=== PATIENT | female | born 1945 | race Caucasian/White ===

== ENCOUNTER 2020-07-28 09:27 | Outpatient (CLI) | payer OTHER, SELFPAY ==
--- NOTE | 2020-07-28 | DI.RAD_ITS ---
EXAM: XR CHEST 2V PA LATERAL CLINICAL HISTORY: COUGH, R05, FEVER, ? PNEUMONIA, SOB TECHNIQUE: 2D digital imaging was performed. COMPARISON: No exams were available for comparison FINDINGS: The heart is not enlarged. The lungs are clear and well expanded. No pleural effusion seen. Mediastin al contours appear intact. IMPRESSION: Normal chest. RADIATION DOSE DELIVERED: Total DLP
== END 2020-07-28 09:47 ==
PROVIDERS: PCP Physician Assistant; Visit Provider Nurse Practitioner Family
DX: R05 Cough (principal)
CPT/HCPCS: 71046

== ENCOUNTER 2020-07-28 17:31 | Outpatient (REF) | payer OTHER, SELFPAY ==
[2020-08-01 23:13] LABS: Patient Race White; SARS-CoV-2 RNA Undetected (Undetected); SARS-CoV-2 Specimen Source Nasal
== END 2020-07-28 17:51 ==
LOC: NCHCN 17:31
PROVIDERS: PCP Physician Assistant; Visit Provider Physician Assistant
DX: R05 Cough (principal)
CPT/HCPCS: U0003

== ENCOUNTER 2022-11-24 18:00 | Emergency (ER) | payer OTHER, SELFPAY ==
[2022-11-24 18:06] VITALS: BP 159/76; PULSE 74; RESP 24; TEMP 36.9; O2SAT 97
--- NOTE | 2022-11-24 18:30 | RT.EKG_ITS ---
APPROVED REPORT Exam: Resting ECG Reason for Exam: Cough Patient Location: E HR:65 bpm ECG Measurements Heart Rate 65 AXIS LA 176 P 42 QRSd 144 QRS -22 QT 455 T 40 QTc 472 Conclusion Sinus rhythm...normal P axis, V-rate 60- 99 Left bundle branch block...QRSd>120, broad/notched R
--- NOTE | 2022-11-24 18:38 | W.ED.GENAD ---
Discharge Plan Discharge Details Chief Complaint: RespSymp Primary Care Provider: Tolu Lazar ED Provider: Dung Toribio Home Meds and New Rx's Prescriptions: No Action calcium 500 mg Tablet 500 mg PO DAILY furosemide 20 mg Tablet 20 mg PO DAILY metoprolol succinate 25 mg Tablet Extended Release 24 Hr 25 mg PO DAILY Advair HFA 45-21 mcg/actuation Hfa Aerosol Inhaler 2 puff INHALATION BID Vitamin D3 100 mcg (4,000 unit) Capsule 4,000 mcg PO DAILY Medical Decision Making This is a 77-year-old female who presents from home. She states that she has had 2 months of cough, feels congested. States that her primary care physician trialed her on a course of antibiotics in September as well as a course of prednisone which seemed to help. She has aching rib pain from all of her coughing but denies anterior chest pain. She denies lower extremity pain or swelling. She is continue to take her medications. Patient arrives to the ER afebrile, alert and interactive, she is oxygenating normally. She does demonstrate a persistent cough with coarse breath sounds. Differential diagnosis would include CHF, bronchitis, pneumonia or atypical infection. Would consider PE. Patient IV access established, screening labs and EKG obtained. Patient slightly improved with DuoNeb updraft. Her labs are essentially reassuring. White count of 6, hematocrit 34.9, platelets 160. Sodium 135, potassium 4.3, chloride 101, bicarb 25, BUN 16, creatinine 0.8. Troponin is negative, BNP 303, D-dimer 531. Given the persistence of her cough, somewhat atypical presentation, history of being treated with steroids and antibiotics in September I have ordered a CT scan of the chest. The case will be signed out to the oncoming physician. Please see the follow-up note. HPI General Mode of arrival: ambulatory. Date/Time Provider Initiated Documentation: 11/24/22 18:01. Limitations to Documentation: no limitations. Information obtained by: patient. History of Present Illness 77 year old F presents to the emergency department with the chief complaint of Cough for 2 months, described as moderate, and is localized to the chest. Patient reports no radiation. Patient started experiencing this month(s) and it has been intermittent. No relieving factors improve symptom(s), No exacerbating factors reported . Patient notes cough; denies fever/chills. Patient did receive the following treatments prior to arrival, none Related Data Home Medications Medication Instructions Recorded Confirmed calcium 500 mg tablet 500 mg PO DAILY 11/24/22 11/24/22 cholecalciferol (vitamin D3) 100 4,000 mcg PO DAILY 11/24/22 11/24/22 mcg (4,000 unit) capsule fluticasone propionate 45 2 puff inhalation BID 11/24/22 11/24/22 mcg-salmeterol 21 mcg/actuation HFA inhaler (Advair HFA) furosemide 20 mg tablet 20 mg PO DAILY 11/24/22 11/24/22 metoprolol succinate 25 mg 25 mg PO DAILY 11/24/22 11/24/22 tablet,extended release 24 hr Allergies Allergy/AdvReac Type Severity Reaction Status Date / Time oxycodone AdvReac Intermediate Headache Unverified 11/24/22 18:13 General Stated Complaint: RespSymp CECI: 3 Review of Systems Narrative: No fever. Denies lower extremity swelling. States she does have a history of congestive heart failure for which she takes a diuretic. 7 systems reviewed and otherwise negative [facility] Social History Smoking/Tobacco Use Status: Never Smoking risk assessment performed?: Yes Alcohol Intake: never Drug use: Never Substance use type: does not use Do you feel safe at home: Yes Do you feel safe in your relationship?: No Exam Narrative Exam Narrative: GEN: awake, alert, oriented 3. Pleasant, well groomed, interactive. HEAD: Normocephalic, atraumatic EYES: PERRL, EOMI NECK: Full ROM, no KAY, no menigismus CHEST/RESP: Nontender, few scattered rhonchi/coarse rales bilaterally, no wheeze appreciated CARDIOVASCULAR: RRR, no murmur, rub sita. 2+ Rad pulse bilateral ABDOMEN: Soft, nontender, no mass. +Bowel sounds EXT: Full ROM, no edema, no rash Neuro: Grossly normal neurologic exam, conversant, interactive. Psych: Speech fluent, thoughts congruent, affect normal Course Vital Signs Vital signs: Vital Signs Temperature 36.9 C 11/24/22 18:06 Pulse 74 11/24/22 18:06 Respiratory Rate 24 11/24/22 18:06 Blood Pressure 159/76 H 11/24/22 18:06 Pulse Oximetry 97 11/24/22 18:06 Temperature 36.9 C 11/24/22 18:06 Temperature Source Oral 11/24/22 18:06 Pulse 74 11/24/22 18:06 Respiratory Rate 24 11/24/22 18:06 Respiratory Effort Normal, Non-Labored 11/24/22 18:20 Respiratory Depth Normal 11/24/22 18:20 Blood Pressure 159/76 H 11/24/22 18:06 Blood Pressure Position Sitting 11/24/22 18:06 Pulse Oximetry 97 11/24/22 18:06 Oxygen Delivery Method Room Air 11/24/22 18:06 Oxygen Flow Rate 0 11/24/22 18:06 Pain Level 10 11/24/22 18:06 Sign Out Sign Out Data: Sign Out Comment: 2 months cough, followup CT chest Last updated by Dung Toribio MD at 11/24/22 19:33
[2022-11-24] MEDS: Albuterol/Ipratropium 3 ML UPD VIAL UPD (18:48)
[2022-11-24 18:55] LABS: Abs Immature Grans 0.03 10^3/uL (0.0-0.06); Absolute Basophil Count 0.05 10^3/uL (0.0-0.2); Absolute Eosinophil Count 0.36 10^3/uL (0.0-0.7); Absolute Lymphocyte Count 1.43 10^3/uL (1.2-3.4); Absolute Monocyte Count 0.49 10^3/uL (0.1-0.8); Absolute Neutrophil Count 4.18 10^3/uL (1.2-6.7); Basophils % 0.8; Eosinophils % 5.5; HCT 34.9 % (36.0-46.0); Immature Grans % 0.5; Lymphocytes % 21.9; MCH 28.4 pg (27.0-33.0); MCHC 31.5 % (32.0-36.0); MCV 90 fL (80-95); MPV 11.3 fL (8.0-11.0); Monocytes % 7.5; Neutrophils % 63.8; Platelet Count 160 10^3/uL (130-400); RBC 3.87 10^6/uL (3.93-5.22); RDW-SD 42.4 fL; WBC 6.54 10^3/uL (4.4-10.8)
[2022-11-24 19:11] LABS: ALT 45 U/L (14-59); AST 57 U/L (15-37); Albumin 3.4 g/dL (3.4-5.0); Alkaline Phosphatase 110 U/L (46-116); Anion Gap 8.2 mmol/L (3-11); BUN 16 mg/dL (7-18); Bilirubin, Total 0.4 mg/dL (0.2-1.0); CO2 25.8 mmol/L (21.0-32.0); CREATININE 0.8 mg/dL (0.55-1.02); Calcium 8.7 mg/dL (8.5-10.1); Chloride 101 mmol/L (98-107); Estimated GFR 75.84 (mL/min/1.73m2); Glucose 103 mg/dL (74-106); NT-proBNP 303 pg/mL (<300); Potassium 4.3 mmol/L (3.5-5.1); Sodium 135 mmol/L (136-145); Total Protein 6.6 g/dL (6.4-8.2); Troponin I < 50 ng/L (<or=60)
--- NOTE | 2022-11-24 19:15 | DI.CT_ITS ---
Exam(s) CT CHEST PE CTA EXAM: CT CHEST PE CTA CLINICAL HISTORY: Persistent cough. TECHNIQUE: Imaging Protocol: Axial CT angiography was performed with multi-slice acquisition and mu lti-planar and/or 3D reconstructions. CONTRAST MATERIAL: Intravenous: Omnipaque 350 contrast volume:58 mL COMPARISON: CT ABD PELVIS WITH CONTRAST from 12/01/2010 CR XR CHEST 2V PA LATERAL from 07/28/2020 FINDINGS: Tracheobronchial tree: Mild bronchiectasis in the lung bases. Pulmonary parenchyma: There is scarring in the lung bases. No focal consolidating infiltrates are se en. No pulmonary nodules are present. Pulmonary Arteries: No evidence of filling defect to suggest pulmonary emboli. Mediastinum and Danielle: No dominant adenopathy or fluid collection. The esophagus is unremarkable. Visualized thyroid gland: Unremarkable. Pleura: No effusion or pneumothorax. Heart: Mild cardiomegaly. Mild coronary artery calcification is present. No pericardial effusion. Aorta: Thoracic aorta non-dilated. No evidence of dissection. Atherosclerosis is present. Upper abdomen: Unremarkable. Soft tissues: Unremarkable. Bones: Within normal limits for the patient's age. IMPRESSION: 1. No evidence of pulmonary embolism, thoracic aortic dissection or aneurysm. 2. Bilateral basilar scarring/atelectasis and bronchiectasis. RADIATION DOSE DELIVERED: Total DLP DATA REPOSITORY: All CT scans at this facility are submitted to the National Radiology Data Registry (NRDR) Dose Index Registry (DIR) with the [employer] (ACR). RADIATION OPTIMIZATION: All CT scans at this facility use at least one of these dose optimization te chniques: automated exposure control; mA and/or kV adjustment per patient size (includes targeted exa ms where dose is matched to clinical indication); or iterative reconstruction.
[2022-11-24 19:26] LABS: D-Dimer 531 ng/mlFEU (<500)
[2022-11-24] MEDS: Omnipaque 350 MG/ML 100 ML BTL IJ (19:50)
[2022-11-24] MEDS: Normal Saline - Diluent 50 ML VIAL IJ (19:51)
--- NOTE | 2022-11-24 20:12 | DI.VRAD_ITS ---
PROCEDURE INFORMATION: Exam: CTA Chest With Contrast Exam date and time: 11/24/2022 7:50 PM Age: 77 years old Clinical indication: Patient HX: Persistent cough; Per PT: Since August; Additional info: Cough since August TECHNIQUE: Imaging protocol: Computed tomographic angiography of the chest with contrast. 3D rendering (Not supervised by radiologist): MIP and/or 3D reconstructed images were created by the technologist. COMPARISON: CR XR CHEST 2V PA LATERAL 07/28/2020 1:52 PM FINDINGS: Pulmonary arteries: No pulmonary emboli. Aorta: No aortic aneurysm. No aortic dissection. Lungs: Mild bibasilar subsegmental atelectasis associated with mild bronchiectasis. No pneumonia. Pleural spaces: No pneumothorax. No pleural effusion. Heart: Mild cardiomegaly. Lymph nodes: No enlarged lymph nodes. Bones/joints: Chronic bony changes with no acute fracture. Soft tissues: No suspicious lesions. IMPRESSION: 1. Mild cardiomegaly. 2. Mild bibasilar subsegmental atelectasis associated with mild bronchiectasis. No pneumonia. Dictated and Authenticated by: Jeannie Estes MD. Ordering:MIRIAN Razo MD
--- NOTE | 2022-11-24 20:38 | ED.GENADUL_ITS ---
Discharge Plan Discharge Details Chief Complaint: RespSymp Primary Care Provider: Tolu Lazar ED Provider: Adolfo Canales Home Meds and New Rx's Prescriptions: No Action calcium 500 mg Tablet 500 mg PO DAILY furosemide 20 mg Tablet 20 mg PO DAILY metoprolol succinate 25 mg Tablet Extended Release 24 Hr 25 mg PO DAILY Advair HFA 45-21 mcg/actuation Hfa Aerosol Inhaler 2 puff INHALATION BID Vitamin D3 100 mcg (4,000 unit) Capsule 4,000 mcg PO DAILY HPI General Mode of arrival: ambulatory . Date/Time Provider Initiated Documentation: 11/24/22 18:01 . Limitations to Documentation: no limitations . Information obtained by: patient . History of Present Illness and is localized to the chest. No relieving factors improve symptom(s), No exacerbating factors reported . Patient notes cough; denies fever/chills. Patient did receive the following treatments prior to arrival, none Related Data Home Medications Medication Instructions Recorded Confirmed calcium 500 mg tablet 500 mg PO DAILY 11/24/22 11/24/22 cholecalciferol (vitamin D3) 100 4,000 mcg PO DAILY 11/24/22 11/24/22 mcg (4,000 unit) capsule fluticasone propionate 45 2 puff inhalation BID 11/24/22 11/24/22 mcg-salmeterol 21 mcg/actuation HFA inhaler (Advair HFA) furosemide 20 mg tablet 20 mg PO DAILY 11/24/22 11/24/22 metoprolol succinate 25 mg 25 mg PO DAILY 11/24/22 11/24/22 tablet,extended release 24 hr Allergies Allergy/AdvReac Type Severity Reaction Status Date / Time oxycodone AdvReac Intermediate Headache Unverified 11/24/22 18:13 General Stated Complaint: RespSymp CECI: 3 PFSH Social History Smoking/Tobacco Use Status: Never Smoking risk assessment performed?: Yes Alcohol Intake: never Drug use: Never Substance use type: does not use Do you feel safe at home: Yes Do you feel safe in your relationship?: No Course Vital Signs Vital signs: Vital Signs Temperature 36.9 C 11/24/22 18:06 Pulse 74 11/24/22 18:06 Respiratory Rate 24 11/24/22 18:06 Blood Pressure 159/76 H 11/24/22 18:06 Pulse Oximetry 97 11/24/22 18:06 Temperature 36.9 C 11/24/22 18:06 Temperature Source Oral 11/24/22 18:06 Pulse 74 11/24/22 18:06 Respiratory Rate 24 11/24/22 18:06 Respiratory Effort Normal, Non-Labored 11/24/22 18:20 Respiratory Depth Normal 11/24/22 18:20 Blood Pressure 159/76 H 11/24/22 18:06 Blood Pressure Position Sitting 11/24/22 18:06 Pulse Oximetry 97 11/24/22 18:06 Oxygen Delivery Method Room Air 11/24/22 18:06 Oxygen Flow Rate 0 11/24/22 18:06 Pain Level 10 11/24/22 18:06 Lab/Test Results Lab/Test Results: Laboratory Tests Range/Units 11/24/22 11/24/22 11/24/22 18:30 18:30 18:30 WBC (4.4-10.8) 10^3/uL 6.54 RBC (3.93-5.22) 10^6/uL 3.87 L Hgb (11.2-15.7) g/dL 11.0 L Hct (36.0-46.0) % 34.9 L MCV (80-95) fL 90 MCH (27.0-33.0) pg 28.4 MCHC (32.0-36.0) % 31.5 L RDW (11.7-14.6) % 13.0 Plt Count (130-400) 10^3/uL 160 MPV (8.0-11.0) fL 11.3 H Immature Gran % 0.5 Neutrophils % 63.8 Lymphocytes % 21.9 Monocytes % 7.5 Eosinophils % 5.5 Basophils % 0.8 Nucleated RBC % (0.0-0.3) % 0.0 Absolute Neutrophils (1.2-6.7) 10^3/uL 4.18 Absolute Lymphocytes (1.2-3.4) 10^3/uL 1.43 Absolute Monocytes (0.1-0.8) 10^3/uL 0.49 Absolute Eosinophils (0.0-0.7) 10^3/uL 0.36 Absolute Basophils (0.0-0.2) 10^3/uL 0.05 D-Dimer (<500) ng/mlFEU 531 H Sodium (136-145) mmol/L 135 L Potassium (3.5-5.1) mmol/L 4.3 Chloride (98-107) mmol/L 101 Carbon Dioxide (21.0-32.0) mmol/L 25.8 Anion Gap (3-11) mmol/L 8.2 BUN (7-18) mg/dL 16 Creatinine (0.55-1.02) mg/dL 0.8 Est GFR (CKD-EPI 2020) (mL/min/1.73m2) 75.84 Glucose (74-106) mg/dL 103 Calcium (8.5-10.1) mg/dL 8.7 Total Bilirubin (0.2-1.0) mg/dL 0.4 AST (15-37) U/L 57 H ALT (14-59) U/L 45 Alkaline Phosphatase (46-116) U/L 110 Troponin I (<or=60) ng/L < 50 NT-Pro-B Natriuret Pep (<300) pg/mL 303 H Total Protein (6.4-8.2) g/dL 6.6 Albumin (3.4-5.0) g/dL 3.4 Sign Out Sign Out Data: Sign Out Comment: 2 months cough, followup CT chest Last updated by Dung Toribio MD at 11/24/22 19:33
--- NOTE | 2022-11-24 20:39 | ED.PROG_ITS ---
Date of service: 11/24/22 Time of Service: 20:58 Medical Decision Making Patient was signed out to me by my colleague Dr. Dung Toribio. Please refer to his HPI, physical exam, assessment and plan. At time of signout we are pending CT results. CT scan has returned, and shows mild cardiomegaly, no evidence of CHF, there is mild bibasilar subsegmental atelectasis associated with mild bronchiectasis. No pneumonia. This appears to be clinically consistent with the patient's symptomatology of persistent cough, even in spite of short steroid and antibiotic treatment. Patient has no evidence of hypoxemia or respiratory distress. She is otherwise notably stable. The remainder of her work-up is otherwise stable. No evidence of blood clots. We will transition to an extended/prolonged course of steroids and antibiotics. We will do 14 days of Levaquin, and a prolonged 3-week taper dose of steroids. She will continue the Advair inhaler that was already prescribed to her. Cardiac work-up was negative, troponin negative, proBNP shows no signs of significant heart strain or CHF. She has no evidence of CHF clinically. We will place a pulmonology consult for outpatient sputum collection and potential biopsy if indicated. Discussed red flags for which to return. We will give the first dose of Levaquin and prednisone here. I have extensively reviewed the treatment plan and discharge instructions with the patient. I have addressed all patient concerns at this time. The patient was made aware of what symptoms to monitor for that would warrant a return to the emergency department. Discussed the plan with the patient, they demonstrate verbal understanding and agreement with our assessment and plan at this time. The documentation in this chart was dictated using [employer] dictation software. Please excuse any dictation errors. FINDINGS: Pulmonary arteries: No pulmonary emboli. Aorta: No aortic aneurysm. No aortic dissection. Lungs: Mild bibasilar subsegmental atelectasis associated with mild bronchiectasis. No pneumonia. Pleural spaces: No pneumothorax. No pleural effusion. Heart: Mild cardiomegaly. Lymph nodes: No enlarged lymph nodes. Bones/joints: Chronic bony changes with no acute fracture. Soft tissues: No suspicious lesions. IMPRESSION: 1. Mild cardiomegaly. 2. Mild bibasilar subsegmental atelectasis associated with mild bronchiectasis. No pneumonia. Thank you for allowing us to participate in the care of your patient. Dictated and Authenticated by: Jeannie Estes MD 11/24/2022 8:11 PM Eastern Time ([place] & [place]) Sign Out Sign Out Data: Sign Out Comment: 2 months cough, followup CT chest Last updated by Dung Toribio MD at 11/24/22 19:33 Discharge Plan Disposition Patient Disposition: Home Condition: Good Discharge Details Clinical Impression: Bronchiectasis Primary Care Provider: Tolu Lazar ED Provider: Adolfo Canales Home Meds and New Rx's Prescriptions: New prednisone 20 mg tablet 20 mg PO DAILY Qty: 42 0RF Rx Instructions: Take 3 tablets daily for 7 days, followed by 2 tablets daily for 7 days, followed by 1 tablet daily for 7 days. levofloxacin 750 mg tablet 750 mg PO DAILY Qty: 14 0RF Continued calcium 500 mg Tablet 500 mg PO DAILY furosemide 20 mg Tablet 20 mg PO DAILY metoprolol succinate 25 mg Tablet Extended Release 24 Hr 25 mg PO DAILY Advair HFA 45-21 mcg/actuation Hfa Aerosol Inhaler 2 puff INHALATION BID cholecalciferol (vitamin D3) 100 mcg (4,000 unit) Capsule 4,000 mcg PO DAILY Discharge Instructions Instructions: Bronchiectasis (ED) Additional Instructions: At this time your symptoms are consistent with bronchiectasis which is similar to a chronic high mucus producing infection/irritation in the pathways of breathing/bronchi of your lungs. This will require a prolonged antibiotic course for 2 weeks, as well as a prolonged steroid course. Please take these as directed for the levofloxacin antibiotic and the prednisone steroid. Please continue to take your inhaler as directed. We have placed a pulmonology consult. Please follow-up closely with the print support specialist when they have called you to schedule an appointment. If you notice any worsening of your symptoms, or any new symptoms such as vomiting, diarrhea, fever, chills, shortness of breath, chest pain, numbness, weakness, or fainting , please return immediately to the emergency department for reevaluation. Please follow up with your primary care provider as soon as possible for reassessment and reevaluation. As always, it was a pleasure participating in your medical care today. Referrals: Tolu Lazar [Primary Care Provider] - Natalya Peralta MD [ [facility] STAFF PHYSICIAN] -
[2022-11-24] MEDS: predniSONE 20 MG TAB 60 MG PO (20:52)
[2022-11-24] MEDS: levoFLOXacin 500 MG, levoFLOXacin 250 MG 750 MG PO (20:53)
--- NOTE | 2022-11-24 21:06 | NUR.NOTE ---
Referral faxed to [facility] Pulmonology to f/u in 1-2 months for Bronchiectasis.Nursing Note:
== END 2022-11-24 21:03 | disposition home or self-care (01) ==
PROVIDERS: Emergency Medicine; Emergency Provider Student in an Organized Health Care Education/Training Program; PCP Physician Assistant
DX: J47.9 Bronchiectasis, uncomplicated (principal); Z79.51 Long term (current) use of inhaled steroids
CPT/HCPCS: 36415; 71275; 80053; 93005; 99285; 83880; 84484; 85025; 85379; 93010; 99284; J3490; J7512; J7620

== ENCOUNTER 2022-12-25 18:30 | Emergency (ER) | payer OTHER, SELFPAY ==
[2022-12-25 18:36] VITALS: PULSE 78; RESP 18; TEMP 37.3; O2SAT 96
[2022-12-25 18:40] VITALS: BP 136/65
[2022-12-25 19:26] VITALS: RESP 18
--- NOTE | 2022-12-25 19:30 | DI.RAD_ITS ---
Exam(s) XR THUMB RT EXAM: XR THUMB RT CLINICAL HISTORY: pain and swelling. TECHNIQUE: 2D digital imaging was performed. Three views. COMPARISON: No exams were available for comparison FINDINGS: BONES: No acute fracture is present. No bony destructive lesion is seen. JOINTS: No dislocation present. Degenerative changes 1st carpal metacarpal joint. SOFT TISSUE: Swelling around distal thumb. No foreign body or gas collection.. IMPRESSION: Soft tissue swelling. DATA REPOSITORY: RADIATION DOSE DELIVERED:
--- NOTE | 2022-12-25 19:40 | ED.GENADUL_ITS ---
Discharge Plan Disposition Patient Disposition: Home Condition: Stable Discharge Details Clinical Impression: Swelling of right thumb Primary Care Provider: Tolu Lazar ED Provider: Gaurav Rosario Home Meds and New Rx's Prescriptions: New prednisone 20 mg tablet 60 mg PO DAILY 4 Days Qty: 12 0RF amoxicillin-pot clavulanate 875-125 mg tablet 1 tab PO BID Qty: 14 0RF Continued calcium 500 mg Tablet 500 mg PO DAILY furosemide 20 mg Tablet 20 mg PO DAILY metoprolol succinate 25 mg Tablet Extended Release 24 Hr 25 mg PO DAILY Advair HFA 45-21 mcg/actuation Hfa Aerosol Inhaler 2 puff INHALATION BID cholecalciferol (vitamin D3) 100 mcg (4,000 unit) Capsule 4,000 mcg PO DAILY prednisone 20 mg tablet 20 mg PO DAILY Qty: 42 0RF Patient Comments: not taking Rx Instructions: Take 3 tablets daily for 7 days, followed by 2 tablets daily for 7 days, followed by 1 tablet daily for 7 days. levofloxacin 750 mg tablet 750 mg PO DAILY Qty: 14 0RF Patient Comments: not taking Discharge Instructions Additional Instructions: Your are being treated for askin infection with augmentin and also a steroid for possible arthritis if not improving by next week follow up with your primary care provider if you feel more ill, have severe worsening pain return to the emergency department Medical Decision Making 77 yo female comes in with cc of nontraumatic right thumb swelling for several days and earlier today had a temp to 100.2 that resolved. Denies chills, states she feels well otherwise. She does have a swollen right thumb compared to the left and is warm to touch. She has intact sensation, full rom, no tenderness over the palmar surface of the thumb. No breaks in the skin or lacs. No other rashes elsewhere, and the thumb is not red just warm to touch. Suspect possible tendonitis vs cellulitis, will obtain xray to evaluate for possible pathology such as pathological fracture though has no severe pain so doubt this. She appears well so doubt sepsis at this time and no findings to suggest nec fasc or flexor tenosynovitis at this time pt stable, xray without acute findings, does have significant degenerative changes of trapezial metacarpal joint. Could be arthritis, will continues with augmentin and prednisone, advised to f/u with pcp, return precautions given Differential Diagnosis Differential Diagnosis: cellulitis, tendonitis Imaging Data Radiologic Study: Attestation: I personally reviewed and interpreted this imaging study as follows: Imaging: X-Ray Radiologist's impression: PROCEDURE INFORMATION: Exam: XR Right Finger(s) Exam date and time: 12/25/2022 7:52 PM Age: 77 years old Clinical indication: Swelling; Fingers; Right; Additional info: Thumb swelling TECHNIQUE: Imaging protocol: Radiologic exam of the right fingers. Views: Minimum 2 views. COMPARISON: No relevant prior studies available. FINDINGS: Bones/joints: There are severe degenerative changes of the trapezial metacarpal joint with moderate subluxation of the base of the 1st metacarpal. Osseous alignment is otherwise normal. No acute fracture seen. Soft tissues: Normal. IMPRESSION: No acute fracture. Significant degenerative changes of the trapezial metacarpal joint HPI General Mode of arrival: ambulatory . Date/Time Provider Initiated Documentation: 12/25/22 18:43 . Limitations to Documentation: no limitations . Information obtained by: patient . History of Present Illness 77 year old F presents to the emergency department with the chief complaint of right thumb swelling, described as moderate, Patient started experiencing this day(s) (3) and it has been constant. No relieving factors improve symptom(s), No exacerbating factors reported . Patient did receive the following treatments prior to arrival, none Related Data Home Medications Medication Instructions Recorded Confirmed calcium 500 mg tablet 500 mg PO DAILY 11/24/22 12/25/22 cholecalciferol (vitamin D3) 100 4,000 mcg PO DAILY 11/24/22 12/25/22 mcg (4,000 unit) capsule fluticasone propionate 45 2 puff inhalation BID 11/24/22 12/25/22 mcg-salmeterol 21 mcg/actuation HFA inhaler (Advair HFA) furosemide 20 mg tablet 20 mg PO DAILY 11/24/22 12/25/22 levofloxacin 750 mg tablet 750 mg PO DAILY #14 tabs 11/24/22 metoprolol succinate 25 mg 25 mg PO DAILY 11/24/22 12/25/22 tablet,extended release 24 hr prednisone 20 mg tablet 20 mg PO DAILY #42 tabs 11/24/22 amoxicillin 875 mg-potassium 1 tab PO BID #14 tabs 12/25/22 clavulanate 125 mg tablet prednisone 20 mg tablet 60 mg PO DAILY 4 days #12 tabs 03/29/23 Previous Rx's Medication Instructions Recorded levofloxacin 750 mg tablet 750 mg PO DAILY #14 tabs 11/24/22 prednisone 20 mg tablet 20 mg PO DAILY #42 tabs 11/24/22 amoxicillin 875 mg-potassium 1 tab PO BID #14 tabs 12/25/22 clavulanate 125 mg tablet prednisone 20 mg tablet 60 mg PO DAILY 4 days #12 tabs 12/25/22 Allergies Allergy/AdvReac Type Severity Reaction Status Date / Time oxycodone AdvReac Intermediate Headache Unverified 12/25/22 18:39 General Stated Complaint: Vascular CECI: 3 Review of Systems All systems reviewed & are unremarkable except as noted in HPI and below Constitutional Constitutional: Denies chills and Denies weakness Cardiovascular Cardiovascular: Denies chest pain and Denies dyspnea Respiratory Respiratory: Denies cough and Denies dyspnea Gastrointestinal Gastrointestinal: Denies abdominal pain, Denies nausea and Denies vomiting Genitourinary Genitourinary: Denies dysuria Neurologic Neurologic: Denies weakness PFSH All Active Problems (Updated 12/25/22 @ 20:34 by Gaurav Rosario MD) Swelling of right thumb (Acute) Social History Smoking/Tobacco Use Status: Never Smoking risk assessment performed?: Yes Alcohol Intake: never Drug use: Never Substance use type: does not use Do you feel safe at home: Yes Do you feel safe in your relationship?: No Exam Const General: no acute distress Orientation: alert HENMT Head: normal to inspection Ears: external ears normal General nose exam: external nose normal Mouth: moist mucous membranes Eyes General: appearance normal, both eyes and all related structures Neck Neck: normal visual inspection Resp Effort & Inspection: normal respiratory effort and able to speak in complete sentences Cardio Rate: regular rate Skin General skin exam: no rashes or lesions noted Neuro General: patient alert and patient oriented x3 Extrem General: full ROM and capillary refill normal Psych Mental Status: mental status grossly normal Course Vital Signs Vital signs: Vital Signs Temperature 37.3 C 12/25/22 18:36 Pulse 78 12/25/22 18:36 Respiratory Rate 18 12/25/22 18:36 Pulse Oximetry 96 12/25/22 18:36 Temperature 37.3 C 12/25/22 18:36 Temperature Source Oral 12/25/22 18:36 Pulse 78 12/25/22 18:36 Respiratory Rate 18 12/25/22 19:26 Respiratory Effort Normal 12/25/22 19:26 Respiratory Depth Normal 12/25/22 19:26 Respiratory Pattern Normal 12/25/22 19:26 Blood Pressure 136/65 12/25/22 18:40 Pulse Oximetry 96 12/25/22 18:36
[2022-12-25] MEDS: predniSONE 20 MG TAB 60 MG PO (20:02)
[2022-12-25] MEDS: Amoxicillin 875/Clav. 125 TAB PO (20:02)
--- NOTE | 2022-12-25 20:06 | DI.VRAD_ITS ---
PROCEDURE INFORMATION: Exam: XR Right Finger(s) Exam date and time: 12/25/2022 7:52 PM Age: 77 years old Clinical indication: Swelling; Fingers; Right; Additional info: Thumb swelling TECHNIQUE: Imaging protocol: Radiologic exam of the right fingers. Views: Minimum 2 views. COMPARISON: No relevant prior studies available. FINDINGS: Bones/joints: There are severe degenerative changes of the trapezial metacarpal joint with moderate subluxation of the base of the 1st metacarpal. Osseous alignment is otherwise normal. No acute fracture seen. Soft tissues: Normal. IMPRESSION: No acute fracture. Significant degenerative changes of the trapezial metacarpal joint Dictated and Authenticated by: Philip Maya MD. Ordering:DAVID Nolasco MD
[2022-12-25 20:47] VITALS: BP 137/64; PULSE 74; RESP 17; O2SAT 97
--- NOTE | 2022-12-26 11:35 | NUR.NOTE ---
Addendum entered by Carol Love 12/26/22 12:22: Patient called stating that she received a notification on her phone stating that she could not tile picker the prescritions until 12/31. Сергей Guajardo [facility], [place], [place] and because it was sent to [email or web address] that pharmacy no longer exists; it showed filled. We explained to them and they are going to fill it for the patient. Patient was called and told that she can pick them up mid afternoon today at the [facility] in [place], [place]. Original Note: Nursing Note: Accessed pt chart to determine pharmacy and where her prescriptions were sent.
== END 2022-12-25 20:50 | disposition home or self-care (01) ==
PROVIDERS: Emergency Provider Emergency Medicine; PCP Physician Assistant
DX: M79.89 Other specified soft tissue disorders (principal)
CPT/HCPCS: 99283; 73140; 99284; J7512

== ENCOUNTER 2023-01-21 13:44 | Outpatient (REF) | payer OTHER, SELFPAY ==
[2023-01-21 19:40] LABS: Abs Immature Grans 0.01 10^3/uL (0.0-0.06); Absolute Basophil Count 0.03 10^3/uL (0.0-0.2); Absolute Eosinophil Count 0.32 10^3/uL (0.0-0.7); Absolute Lymphocyte Count 1.02 10^3/uL (1.2-3.4); Absolute Monocyte Count 0.55 10^3/uL (0.1-0.8); Absolute Neutrophil Count 4.05 10^3/uL (1.2-6.7); Basophils % 0.5; Eosinophils % 5.4; HCT 37.6 % (36.0-46.0); HGB 12.2 g/dL (11.2-15.7); Immature Grans % 0.2; Lymphocytes % 17.1; MCH 29.6 pg (27.0-33.0); MCHC 32.4 % (32.0-36.0); MCV 91 fL (80-95); MPV 10.4 fL (8.0-11.0); Monocytes % 9.2; Neutrophils % 67.6; Platelet Count 232 10^3/uL (130-400); RBC 4.12 10^6/uL (3.93-5.22); RDW 13.1 % (11.7-14.6); RDW-SD 43.8 fL; WBC 5.98 10^3/uL (4.4-10.8)
[2023-01-21 19:44] LABS: ALT 30 U/L (14-59); AST 26 U/L (15-37); Albumin 3.7 g/dL (3.4-5.0); Alkaline Phosphatase 101 U/L (46-116); Anion Gap 7.9 mmol/L (3-11); BUN 16 mg/dL (7-18); Bilirubin, Total 0.2 mg/dL (0.2-1.0); CO2 27.1 mmol/L (21.0-32.0); CREATININE 0.8 mg/dL (0.55-1.02); Calcium 9.2 mg/dL (8.5-10.1); Chloride 105 mmol/L (98-107); Estimated GFR 75.84 (mL/min/1.73m2); Glucose 115 mg/dL (74-106); Potassium 3.7 mmol/L (3.5-5.1); Sodium 140 mmol/L (136-145); TSH (W/Ref FT4) 1.64 uIU/mL (0.36-3.74); Total Protein 6.9 g/dL (6.4-8.2)
== END 2023-01-21 13:45 | disposition home or self-care (01) ==
LOC: NCHCN 13:44
PROVIDERS: PCP Physician Assistant; Visit Provider Nurse Practitioner Family
DX: R53.83 Other fatigue (principal)
CPT/HCPCS: 80053; 84443; 85025

== ENCOUNTER 2023-01-31 02:11 | Outpatient (CLI) | payer OTHER, SELFPAY ==
[2023-01-31] MEDS: Albuterol HFA 18 GM 200 PUFF INH IH (09:06)
[2023-01-31] MEDS: Inhaler, Assist Device 1 EACH MC (09:06)
--- NOTE | 2023-01-31 12:37 | W.PFT ---
Date of service: 01/31/23 Time of Service: 08:03 Pulmonary Function Test Result Indications: Asthma/COPD Interpretation Spirometry: There is no airflow limitation. There is no significant bronchodilator response. Lung Volumes: Normal lung volumes Diffusion Capacity: Mildly decreased diffusion Airway Pressure: Normal airways resistance Impression Isolated low diffusion. In the correct clinical context this could represent emphysema, early ILD or pulmonary vascular disease (pulmonary hypertension) Clinical Correlation therefore is recommended.
== END 2023-01-31 02:12 | disposition home or self-care (01) ==
LOC: RT 02:11
PROVIDERS: PCP Physician Assistant; Visit Provider Nurse Practitioner Family
DX: J44.9 Chronic obstructive pulmonary disease, unspecified (principal); J45.909 Unspecified asthma, uncomplicated; Z77.22 Contact with and (suspected) exposure to environmental tobacco smoke (acute) (chronic)
CPT/HCPCS: 94060; 94726; 94729

== ENCOUNTER 2023-04-24 19:46 | Outpatient (REF) | payer OTHER, SELFPAY ==
[2023-04-25 18:19] LABS: Rheumatoid Factor <8.6 IU/mL (<12.0)
[2023-04-28 09:14] LABS: Cyclic Citrullinated Peptide <2.5 U/mL (<5.0)
[2023-04-28 09:41] LABS: IgA 67 mg/dL (85-499); IgG 647 mg/dL (610-1616); IgM 54 mg/dL (35-242)
[2023-04-28 14:51] LABS: ANA Interpretation Negative (Negative)
[2023-04-29 09:14] LABS: IgE 10 IU/mL (<158)
[2023-04-29 13:58] LABS: dsDNA Ab, IgG <12.3 IU/mL (<30.0)
== END 2023-04-24 19:47 | disposition home or self-care (01) ==
LOC: LBN 19:46
PROVIDERS: PCP Physician Assistant; Visit Provider Student in an Organized Health Care Education/Training Program
DX: J47.9 Bronchiectasis, uncomplicated (principal)
CPT/HCPCS: 82784; 86200; 82785; 82787; 86038; 86225; 86431

== ENCOUNTER 2023-05-05 06:08 | Day surgery (SDC) | payer OTHER, SELFPAY ==
[2023-05-05] VITALS (8 sets, daily range): BP systolic 107–150; BP diastolic 35–67; PULSE 51–70; RESP 14–19; TEMP 36.4–36.7; O2SAT 96–100; BMI 25.4
[2023-05-05] MEDS: Lactated Ringers 1,000 ML 80 ML IV (06:51)
--- NOTE | 2023-05-05 07:05 | W.ANESPRE ---
General Info Date of Service Date Performed: 05/05/23 Height: 4 ft 9.09 in Weight: 53.5 kg Body Mass Index (BMI): 25.4 Surgical Procedure: Operation Date: 05/05/23 07:40 Proposed Procedure Side Surgeon p Bronchoscopy w/IVONE Peralta MD Meds Allergies and Home Medications Allergies Allergy/AdvReac Type Severity Reaction Status Date / Time oxycodone AdvReac Intermediate Headache Verified 05/05/23 06:40 Home Medication Medication Instructions Recorded calcium 500 mg tablet 500 mg PO DAILY 11/24/22 cholecalciferol (vitamin D3) 100 4,000 mcg PO DAILY 11/24/22 mcg (4,000 unit) capsule furosemide 20 mg tablet 20 mg PO DAILY 11/24/22 metoprolol succinate 25 mg 25 mg PO HS 11/24/22 tablet,extended release 24 hr albuterol sulfate 2.5 mg/0.5 mL 5 mg inhalation Q6H PRN shortness 04/24/23 solution for nebulization of breath or wheezing #220 ea Current Visit Medications: Current Medications Generic Name Dose Route Start Last Admin Trade Name Freq PRN Reason Stop Dose Admin Albuterol/Ipratropium 3 ml 05/05/23 06:53 Albuterol/Ipratropium 3 Ml Upd Vial UPD 06/04/23 06:52 Q2H PRN PRN Ringer's Solution 1,000 mls @ 80 mls/hr 05/05/23 06:00 05/05/23 06:51 IV 06/01/23 23:59 80 mls/hr INFUSION FRAN Administration IV Miscellaneous Supplies 1 each 05/05/23 06:00 Iv Access IV 06/01/23 23:59 DIRECTED FRAN Sodium Chloride 0 ml 05/05/23 06:00 Normal Saline Flush 10 Ml Syr IV 06/01/23 23:59 PRN PRN Sodium Chloride 0 ml 05/05/23 06:00 Normal Saline 10 Ml Vial IJ 06/01/23 23:59 DIRECTED PRN Sterile Water 0 ml 05/05/23 06:00 Water,Injection,Sterile 10 Ml Vial IJ 06/01/23 23:59 DIRECTED PRN PFSH Active Problems Active Problems: Problem Status Onset Code Bronchiectasis J47.9 Medical History Medical History (Updated 05/05/23 @ 06:40 by Natalie Higgins RN) Acute non-ST elevation myocardial infarction (NSTEMI) 12/2019 History of trigger finger LBBB (left bundle branch block) Osteoporosis Ovarian fibroma Stress-induced cardiomyopathy Trigeminal neuralgia Surgical correction Surgical History Surgical History History of partial hysterectomy Tobacco Smoking/Tobacco Use Status: Never Alcohol Alcohol Intake: never Substance Use Substance use: Never Substance use type: does not use Vital Signs and Lab Results Vital Signs Most Recent Vital Signs in EMR: Most Recent Vital Signs Temp Pulse Resp BP Pulse Ox 36.6 C 51 L 16 150/59 H 98 05/05/23 06:31 05/05/23 06:31 05/05/23 06:31 05/05/23 06:31 05/05/23 06:31 Lab Results Blood Type / Crossmatch: No Data to Display Complete Blood Count: No Data to Display Complete Metabolic Panel: No Data to Display Liver Function Panel: No Data to Display Coagulation Panel: No Data to Display Cardiac Panel: No Data to Display Arterial Blood Gas: No Data to Display Venous Blood Gas: No Data to Display Pancreas Panel: No Data to Display Thyroid Panel: No Data to Display Infectious Disease: No Data to Display Blood Cultures: No Data to Display Toxicology Panel: No Data to Display Imaging and Studies Imaging and Studies Study information below may be from another EMR and interpreted by another provider. Please see original notes in EMR for more complete details. Pulmonary Function Summary: Impression Isolated low diffusion. In the correct clinical context this could represent emphysema, early ILD or pulmonary vascular disease (pulmonary hypertension) Clinical Correlation therefore is recommended. 01/31/23 Anesthesia Assessment and Plan Anesthesia History Personal History: No History of Anesthesia Complications Family History: No Family History of Anesthesia Complications Exercise Tolerance Exercise Tolerance: Metabolic Equivalents>4 Pertinent Negatives Pertinent Negatives: No Symptoms of GERD, No Major Cardiovascular Symptoms or Complaints and No History of CVA/TIA Cardiac & Pulmonary Exam Cardiac Exam: Normal S1/S2 Heart Sounds Pulmonary Exam: Rhonchi Present and Active Cough or Cold (congested cough) Implantable Cardiac Device Does patient have a Pacemaker or an ICD?: No Airway Exam Known Difficult Airway: No Mallampati Class: 1 Mouth Opening: Normal (> 3cm) Thyromental Distance: Greater than 3 cm Neck Range of Motion: Full ROM Neck Circumference: Normal Teeth Condition: Normal Dentition (partials left at home) ASA Classification ASA Score: ASA 3 Emergency Case?: No NPO Status NPO Status: NPO Clears >2 hours, Solids >8 hours Anesthesia Plan Resuscitation Status: Full Code Anesthesia Technique: General Anesthesia Airway Planned: Endotracheal Tube Monitors Used: Standard Monitors Preoperative Comments:: Hx of [place] 2019, stress cardiomyopathy, cardiac cath WNL See Cardiac note.
[2023-05-05] MEDS: Lidocaine 1% Pres-Free 5 ML VIAL (07:47)
--- NOTE | 2023-05-05 08:00 | W.PM.OP ---
Date of service: 05/05/23 Time of Service: 07:30 Operative Note Operative Note PRE-OP DIAGNOSIS: Bronchiectasis POST-OP DIAGNOSIS: same Refer to Anesthesia Record Procedure Description: Bronchoscopy Indication:Bronchiectasis concern for MAC Procedure performed: Flexible bronchoscopy with bronchial washings Sedation plan: General anesthesia Informed consent was obtained after the risks and benefits or the procedure were discussed. The patient was sedated and intubated by anesthesia. A proper and complete OR compliant time out was performed. The therapeutic 6.2mm Olympus bronchoscope was inserted through the endotracheal tube into the airways, where 3cc in total of 1% topical lidocaine was used the anesthetize the airways. The trachea was midline and without lesion or injury. The mucosa appeared normal and there were no signs of tracheomalacia. The nhung was sharp. All bronchial subsegments were visualized within each lobe and showed lower lobe and right middle lobe bronchiectasis with very floppy airways. The right lower lobe had thick white secretions present that were easily suctioned. A bronchoalveolar lavage was attempted in the RML, however her airways totally collapsed with application of any negative pressure and no fluid was retrieved from this procedure. I then decided to simply obtain bronchial washings, which were primarily completed in the RLL. The bronchoscope was then removed and the case terminated. The patient was taken to PACU in stable condition. Samples collected:Bronchial washings Testing ordered:cell diff, bacterial and AFB cultures Complications:None Natalya Peralta MD Pulmonary & Critical Care Medicine
--- NOTE | 2023-05-05 08:33 | W.ANESPOSTOP ---
Postoperative Evaluation Date, Time and Location Date Performed: 05/05/23 Time Performed: 08:27 Patient Location: PACU Vital Signs Most Recent Imported Vital Signs: Most Recent Vital Signs Temp Pulse Resp BP Pulse Ox 36.7 C 70 14 121/55 L 96 05/05/23 08:15 05/05/23 08:25 05/05/23 08:25 05/05/23 08:25 05/05/23 08:25 Pain Score Most Recent Pain Score: Most Recent Pain Score Pain Level 0 05/05/23 08:25 Assessment Mental Status: Awake (Alert & Oriented to Patient Baseline) Airway and Respiratory Function: Patent airway with normal (patient baseline) respiratory exam Cardiovascular Function: Hemodynamically Stable Hydration Status: Adequately Hydrated Nausea & Vomiting: No Nausea or Vomiting Pain: Pt. Denies Any Pain Peripheral Nerve Block: Patient did not receive a nerve block
[2023-05-07 13:39] LABS: Eosinophils Fluid Relative 6 %; Lymphocytes Fluid Relative 4 %; Mono/Macrophage Fluid Relative 12 %; Neutrophils Fluid Relative 78 %
== END 2023-05-05 09:15 | disposition home or self-care (01) ==
PROVIDERS: PCP Physician Assistant; Visit Provider Student in an Organized Health Care Education/Training Program
PROC: 0BJ08ZZ Inspection of Tracheobronchial Tree, Via Natural or Artificial Opening Endoscopic (ICD-10-PCS; CPT 31622; principal; 2023-05-05 07:30)
DX: J47.9 Bronchiectasis, uncomplicated (principal); Z79.899 Other long term (current) drug therapy; I44.7 Left bundle-branch block, unspecified
CPT/HCPCS: 31622; 80162; 87070; 87116; 87205; 87206; J2001; J2405; J3010

== ENCOUNTER → 2023-06-13 00:14 | Outpatient (CLI) | payer OTHER, SELFPAY ==
--- NOTE | 2023-06-13 08:00 | DI.CT_ITS ---
Exam(s) CT CHEST WO EXAM: CT CHEST WO CLINICAL HISTORY: f/u bronchiectasis, j47.9. TECHNIQUE: Imaging protocol: Axial computed tomography images were obtained and coronal and sagittal reformatted images were created and reviewed. COMPARISON: CT ABD PELVIS WITH CONTRAST from 12/01/[address] CHEST PE CTA from 11/24/2022 FINDINGS: The examination is limited due to patient motion artifact. Tracheobronchial tree: Persistent mild bronchiectatic changes seen in the lung bases. No mucous plug ging. Pulmonary parenchyma: No consolidation or dominant measurable mass. There is scarring in the lung bas es. No focal consolidating infiltrates are seen. Mediastinum and Danielle: No dominant adenopathy or fluid collection. The esophagus is unremarkable. Thyroid gland: Unremarkable. Pleura: No effusion or pneumothorax. Heart: The heart is not dilated. Coronary artery calcification is present. No pericardial effusion. Aorta: Thoracic aorta non-dilated. Atherosclerosis. Upper abdomen: Unremarkable. Lymph nodes: Within normal limits. Soft tissues: Unremarkable. Bones:Within normal limits for the patient's age. IMPRESSION: 1. Stable mild bronchiectatic changes in the lung bases. No mucous plugging. 2. No acute pulmonary process. RADIATION DOSE DELIVERED: 367.58mGy.cm Total DLP 367.58mGy.cm Total DLP DATA REPOSITORY: All CT scans at this facility are submitted to the National Radiology Data Registry (NRDR) Dose Index Registry (DIR) with the [employer] (ACR). RADIATION OPTIMIZATION: All CT scans at this facility use at least one of these dose optimization te chniques: automated exposure control; mA and/or kV adjustment per patient size (includes targeted exa ms where dose is matched to clinical indication); or iterative reconstruction.
== END ==
PROVIDERS: PCP Physician Assistant; Visit Provider Physician Assistant Surgical
DX: J47.9 Bronchiectasis, uncomplicated (principal)
CPT/HCPCS: 71250

== ENCOUNTER → 2023-07-21 14:05 | Outpatient (CLI) | payer OTHER, SELFPAY ==
--- NOTE | 2023-07-21 | DI.RAD_ITS ---
Exam(s) XR CHEST 2V PA LATERAL EXAM: XR CHEST 2V PA LATERAL CLINICAL HISTORY: COUGH R05.8, BRONCHIECTASIS W/ ACUTE EXACERBATION. TECHNIQUE: 2D digital imaging was performed. COMPARISON: CR XR CHEST 2V PA LATERAL from 07/28/2020 FINDINGS: 2 views: Heart size is normal. The mediastinum is not widened. There is unchanged tenting of the right hemidiaphragm. There is now subsegmental platelike atelectas is in the left lower lobe posterior basal segment. Lesser amount of platelike atelectasis noted in t he right lung base. No pleural effusions. No pulmonary edema. No fractures nor pneumothorax. IMPRESSION: Platelike atelectasis in the left lower lobe posterior basal segment. DATA REPOSITORY: RADIATION DOSE DELIVERED:
== END ==
PROVIDERS: PCP Physician Assistant; Visit Provider Physician Assistant
DX: R05.8 Other specified cough (principal)
CPT/HCPCS: 71046

== ENCOUNTER → 2023-07-22 14:08 | Outpatient (BNVA) | payer OTHER, SELFPAY | PROVIDERS: PCP Physician Assistant; Referring Provider Physician Assistant; Visit Provider Physician Assistant Surgical | DX: J47.9 Bronchiectasis, uncomplicated (principal) | CPT/HCPCS: 99214 ==

== ENCOUNTER → 2023-08-04 13:09 | Outpatient (BNVA) | payer OTHER, SELFPAY | PROVIDERS: PCP Physician Assistant; Referring Provider Physician Assistant; Visit Provider Student in an Organized Health Care Education/Training Program | DX: J47.9 Bronchiectasis, uncomplicated (principal) | CPT/HCPCS: 99214 ==

== ENCOUNTER → 2023-08-18 02:35 | Outpatient (CLI) | payer OTHER, SELFPAY ==
--- NOTE | 2023-08-18 07:49 | DI.MAMMO_ITS ---
Exam(s) MAMMO SCREENING EXAM: MAMMO SCREENING CLINICAL HISTORY: SCREENING, Z12.39 TECHNIQUE: Bilateral full field digital CC and MLO mammographic images were obtained with 3D tomosyn thesis and utilizing computer aided detection (CAD). COMPARISON: Available for comparison. FINDINGS: Masses/Architectural Distortion: None seen. Microcalcifications: No suspicious pleomorphic-type are seen. Skin Thickening/Nipple Retraction: None. IMPRESSION: 1. No significant interval change with no specific features of malignancy noted. 2. Unless there is more urgent need, screening mammography is recommended, as per [employer] guidelines. BI-RADS Category 1 - Negative Breast Density - Category B - Scattered areas of fibroglandular density Breast density category C or D implies that the patient has dense breast tissue. Dense breast tissue is very common and is not abnormal but dense breast tissue can make it harder to find cancer on a ma mmogram. Also, dense breast tissue may increase their breast cancer risk. This information about the result of the mammogram report was provided to the patient to raise their awareness. Use this report when you speak with the patient about their risks for breast cancer, which includes their family hist ory. At that time, you may recommend for more screening tests (Ultrasound or MRI) as they might be us eful based on their risk. A negative radiographic report should not delay biopsy if a dominant or clinically suspicious mass is present. Up to ten percent of cancers are not identified on mammography. A negative report may reinforce clinical impression. Adenosis and dense breasts may obscure an underlying neoplasm. False positive reports average 6 to 10%. Patient will receive a letter notifying them of these results.
== END ==
PROVIDERS: PCP Physician Assistant; Visit Provider Nurse Practitioner Family
DX: Z12.31 Encounter for screening mammogram for malignant neoplasm of breast (principal)
CPT/HCPCS: 77063; 77067

== ENCOUNTER 2023-09-30 08:44 | Emergency (ER) | payer OTHER, SELFPAY ==
--- NOTE | 2023-09-30 08:45 | RT.EKG_ITS ---
APPROVED REPORT Exam: Resting ECG Reason for Exam: SOB Patient Location: E HR:72 bpm ECG Measurements Heart Rate 72 AXIS MA 139 P 0 QRSd 135 QRS -12 QT 435 T 59 QTc 476 Conclusion Sinus rhythm...normal P axis, V-rate 60- 99 Left bundle branch block...QRSd>120, broad/notched R sinus rhythm, LBBB unchanged from 11/21
--- NOTE | 2023-09-30 08:45 | DI.RAD_ITS ---
Exam(s) XR CHEST 2V PA LATERAL EXAM: XR CHEST 2V PA LATERAL CLINICAL HISTORY: SOB, Cough, PUI TECHNIQUE: 2D digital imaging was performed of the chest. Two images were obtained. PA and lateral views were obtained. COMPARISON: CR XR CHEST 2V PA LATERAL from 07/28/2020 CR XR CHEST 2V PA LATERAL from 07/21/2023 FINDINGS: MEDIASTINUM: Normal. HEART: Normal. PULMONARY VASCULATURE: Normal. LUNGS: No focal consolidating infiltrates are seen. There is scarring again seen in the right lung b ase which is unchanged. PLEURAL SPACE: No pleural effusion or pneumothorax. BONE:Within normal limits for the patient's age. OTHER FINDINGS:Normal. IMPRESSION: No focal consolidating infiltrates. DATA REPOSITORY: RADIATION DOSE DELIVERED:
[2023-09-30 08:49] VITALS: BP 116/72; PULSE 73; RESP 18; TEMP 37.1; O2SAT 95
--- NOTE | 2023-09-30 08:58 | ED.GENADUL_ITS ---
HPI General Stated Complaint: RespSymp Mode of arrival: ambulatory. CECI: 3 Date/Time Provider Initiated Documentation: 09/30/23 08:53. Limitations to Documentation: no limitations. Information obtained by: patient, RN notes reviewed and old records reviewed. HPI Narrative: 78-year-old female with a past medical history of bronchiectasis, left bundle branch block, trigeminal neuralgia stress-induced cardiomyopathy osteoporosis and recent diagnosis of COVID and also recently placed on Augmentin 5 days ago presents to the ER with continued shortness of breath, productive cough and some rib pain for 2 weeks. She does have a forceful bronchospastic cough that sounds congested on arrival. She is afebrile satting 95% on room air. She does have a hoarse voice. She does do albuterol inhalers as needed for wheezing. Lungs are diminished upon arrival in the bases. Related Data Home Medications Medication Instructions Recorded Confirmed calcium 500 mg tablet 500 mg PO DAILY 11/24/22 08/04/23 cholecalciferol (vitamin D3) 100 4,000 mcg PO DAILY 11/24/22 08/04/23 mcg (4,000 unit) capsule furosemide 20 mg tablet 20 mg PO DAILY 11/24/22 08/04/23 metoprolol succinate 25 mg 25 mg PO HS 11/24/22 08/04/23 tablet,extended release 24 hr albuterol sulfate 2.5 mg/0.5 mL 5 mg inhalation Q6H PRN shortness 05/13/23 08/04/23 solution for nebulization of breath or wheezing #540 ea codeine 10 mg-guaifenesin 100 mg/5 5 ml PO .nightly PRN allergy 07/21/23 08/04/23 mL oral liquid symptoms #118 mL budesonide 0.5 mg/2 mL suspension 0.5 mg (2 mL) inhalation DAILY #60 07/22/23 08/04/23 for nebulization mL renew life probiotic See Rx Instructions .Route 07/22/23 08/04/23 DIRECTED amoxicillin 500 mg-potassium 1 tab PO BID #14 tabs 09/26/23 clavulanate 125 mg tablet (Augmentin) benzonatate 100 mg capsule 100 mg PO TID PRN cough #14 caps 09/30/23 nirmatrelvir 300 mg (150 mg See Rx Instructions PO .COMPLEX 09/30/23 x2)-ritonavir 100 mg tablet,dose #30 dose pk pack (Paxlovid) prednisone 20 mg tablet 60 mg (3 x 20 mg) PO DAILY 5 days 09/30/23 #15 tabs Previous Rx's Medication Instructions Recorded albuterol sulfate 2.5 mg/0.5 mL 5 mg inhalation Q6H PRN shortness 05/13/23 solution for nebulization of breath or wheezing #540 ea codeine 10 mg-guaifenesin 100 mg/5 5 ml PO .nightly PRN allergy 07/21/23 mL oral liquid symptoms #118 mL budesonide 0.5 mg/2 mL suspension 0.5 mg (2 mL) inhalation DAILY #60 07/22/23 for nebulization mL amoxicillin 500 mg-potassium 1 tab PO BID #14 tabs 09/26/23 clavulanate 125 mg tablet (Augmentin) benzonatate 100 mg capsule 100 mg PO TID PRN cough #14 caps 09/30/23 nirmatrelvir 300 mg (150 mg See Rx Instructions PO .COMPLEX 09/30/23 x2)-ritonavir 100 mg tablet,dose #30 dose pk pack (Paxlovid) prednisone 20 mg tablet 60 mg (3 x 20 mg) PO DAILY 5 days 09/30/23 #15 tabs Allergies Allergy/AdvReac Type Severity Reaction Status Date / Time oxycodone AdvReac Intermediate Headache Verified 08/04/23 13:21 Azithromycin AdvReac Uncoded 08/04/23 13:21 Review of Systems All systems reviewed & are unremarkable except as noted in HPI and below Cardiovascular Cardiovascular: Reports dyspnea Respiratory Respiratory: Reports chest congestion, Reports cough, Reports excessive phlegm production, Reports pain with cough and Reports dyspnea PFSH All Active Problems (Updated 09/30/23 @ 10:30 by Cassidy Villasenor NP) COVID-19 (Acute) Bronchiectasis (Acute) Medical History History of trigger finger Osteoporosis Ovarian fibroma Acute non-ST elevation myocardial infarction (NSTEMI) 12/2019 LBBB (left bundle branch block) Trigeminal neuralgia Surgical correction Stress-induced cardiomyopathy Surgical History History of partial hysterectomy Social History Smoking/Tobacco Use Status: Never Smoking risk assessment performed?: Yes Alcohol Intake: never Drug use: Never Substance use type: does not use Housing: house Do you feel safe at home: Yes Additional Social history: lives alone Exam Narrative Exam Narrative: Constitutional: Alert and oriented x3. Appears stated age. Normal body habitus. Head: Normocephalic, no trauma. Eyes: Pupils PERRL, Red reflex noted, EOM's intact. Eyelids symmetrical without lesions, discharge, or swelling. ENT: Bilateral TM's WNL, External ear normal to inspection, no mastoid TTP, swelling, or erythema, Nasal turbinates WNL, no nasal discharge. Normal dentition, Posterior pharynx WNL, no exudate. Chest: RRR, Normal S1, S2, distal pulses intact. Resp: Lungs diminished at the bases bilaterally, does have some upper expiratory rhonchi congestion with cough. No significant wheezing noted. No stridor, she does have a hoarse voice. Abdomen: Soft, non-distended, Normoactive bowel sounds all 4 quads. Musculoskeletal: Normal gait, 5/5 strength to all four extremities. Skin: No suspicious rashes or lesions. Capillary refill less than 2 sec. Neurologic: Cranial nerves II-XII intact. Alert and oriented x 3. Motor: No deficits noted. Sensory: Intact bilaterally all 4 extremities. Reflexes: DTR's intact bilaterally.. Hematologic/Lymphatic: No ecchymosis, no lymphadenopathy. Course Vital Signs Vital signs: Vital Signs Temperature 37.1 C 09/30/23 08:49 Pulse 73 09/30/23 08:49 Respiratory Rate 18 09/30/23 08:49 Blood Pressure 116/72 09/30/23 08:49 Pulse Oximetry 95 09/30/23 08:49 Temperature 37.1 C 09/30/23 08:49 Temperature Source Tympanic 09/30/23 08:49 Pulse 73 09/30/23 08:49 Respiratory Rate 18 09/30/23 08:49 Blood Pressure 116/72 09/30/23 08:49 Pulse Oximetry 95 09/30/23 08:49 Oxygen Delivery Method Room Air 09/30/23 08:49 Oxygen Flow Rate 0 09/30/23 08:49 Medical Decision Making 78-year-old female with a past medical history of bronchiectasis, left bundle branch block, trigeminal neuralgia stress-induced cardiomyopathy osteoporosis and recent diagnosis of COVID and also recently placed on Augmentin 5 days ago presents to the ER with continued shortness of breath, productive cough and some rib pain for 2 weeks. She does have a forceful bronchospastic cough that sounds congested on arrival. She is afebrile satting 95% on room air. She does have a hoarse voice. She does do albuterol inhalers as needed for wheezing. Lungs are diminished upon arrival in the bases. Workup ordered including CBC, CMP, VBG, EKG. Chest x-ray Flu and COVID swab ord ered. 125 mg Solu-Medrol IV and a DuoNeb Chest x-ray within normal limits no changes from previous. Positive COVID swab obtained from lab. CBC shows slightly white blood cell count at 13.15 neutrophils 10.26 VBG within normal limits, CMP shows a glucose of 107, albumin 3.2 At this time we do have a backorder of Paxlovid. I will inform the patient that she will need to follow-up with her PCP if she is unable to get the medication. However I will prescribe Paxlovid for retail pharmacy, and 5 day stent of prednisone and tessolon perrles. Patient remained hemodynamically stable throughout the remainder of her stay. Alert and oriented x 3. This text was generated using [employer] dictation system, please disregard any oddities of phrase or misspellings. Medical Records Medical records reviewed: Yes I reviewed the patient's medical records. Lab Data Lab results reviewed: Yes I reviewed the patient's lab results. Labs: Laboratory Tests Range/Units 09/30/23 09/30/23 09/30/23 09:15 09:20 12:01 WBC (4.4-10.8) 10^3/uL 13.15 H RBC (3.93-5.22) 10^6/uL 4.43 Hgb (11.2-15.7) g/dL 12.5 Hct (36.0-46.0) % 39.5 MCV (80-95) fL 89 MCH (27.0-33.0) pg 28.2 MCHC (32.0-36.0) % 31.6 L RDW (11.7-14.6) % 12.8 Plt Count (130-400) 10^3/uL 319 MPV (8.0-11.0) fL 9.2 Immature Gran % See Differential Neutrophils % 75.0 Band Neutrophils % 3 Lymphocytes % 9.0 Monocytes % 5.0 Eosinophils % 4.0 Basophils % 0.9 Metamyelocytes % 3 Myelocytes % 1 Nucleated RBC % (0.0-0.3) % 0.0 Absolute Neutrophils (1.2-6.7) 10^3/uL 10.26 H Absolute Lymphocytes (1.2-3.4) 10^3/uL 1.18 L Absolute Monocytes (0.1-0.8) 10^3/uL 0.66 Absolute Eosinophils (0.0-0.7) 10^3/uL 0.53 Absolute Basophils (0.0-0.2) 10^3/uL 0.12 RBC Morphology Normal VBG pH (7.31-7.41) 7.36 VBG pCO2 (41-51) mmHg 50 VBG pO2 mmHg 22 VBG HCO3 (23-28) mmol/L 28 VBG Total CO2 (24-29) mmol/L 26 VBG O2 Saturation % 37 VBG Base Excess (-2-3) mmol/L 3 Sodium (136-145) mmol/L 137 Potassium (3.5-5.1) mmol/L 3.8 Chloride (98-107) mmol/L 100 Carbon Dioxide (21.0-32.0) mmol/L 27.7 Anion Gap (3-11) mmol/L 9.3 BUN (7-18) mg/dL 15 Creatinine (0.55-1.02) mg/dL 0.9 Est GFR (CKD-EPI 2020) (mL/min/1.73m2) 65.44 Glucose (74-106) mg/dL 107 H Calcium (8.5-10.1) mg/dL 9.2 Total Bilirubin (0.2-1.0) mg/dL 0.6 AST (15-37) U/L 19 ALT (14-59) U/L 30 Alkaline Phosphatase (46-116) U/L 97 Troponin I (<or=60) ng/L < 50 Cancelled Total Protein (6.4-8.2) g/dL 7.0 Albumin (3.4-5.0) g/dL 3.2 L COVID-19 Source Nasopharynx SARS-CoV-2 (PCR) (Negative) Positive A Influenza Type A (PCR) (Negative) Negative Influenza Type B (PCR) (Negative) Negative RSV (PCR) (Negative) Negative Quality:SDOH Health Related Social Needs: No Data to Display Discharge Plan Disposition Patient Disposition: Home Condition: Stable Discharge Details Clinical Impression: COVID-19 Primary Care Provider: Tolu Lazar ED Provider: Cassidy Villasenor Home Meds and New Rx's Prescriptions: New Paxlovid 300 mg (150 mg x 2)-100 mg tablets,dose pack See Rx Instructions .ROUTE .COMPLEX Qty: 30 0RF Rx Instructions: take TWO 150 mg tablets of nirmatrelvir with ONE 100 mg tablet of ritonavir twice daily for 5 days prednisone 20 mg tablet 60 mg PO DAILY 5 Days Qty: 15 0RF benzonatate 100 mg capsule 100 mg PO TID PRN (Reason: cough) Qty: 14 0RF Rx Instructions: Take 1 capsule up to 3 times daily as needed for cough No Action albuterol sulfate 2.5 mg/0.5 mL solution for nebulization 5 mg inhalation Q6H PRN (Reason: shortness of breath or wheezing) Qty: 540 12RF renew life probiotic See Rx Instructions .ROUTE DIRECTED Rx Instructions: as directed; budesonide 0.5 mg/2 mL suspension for nebulization 0.5 mg inhalation DAILY Qty: 60 6RF codeine-guaifenesin 10-100 mg/5 mL liquid 5 ml PO .nightly PRN (Reason: allergy symptoms) Qty: 118 0RF amoxicillin-pot clavulanate [Augmentin] 500-125 mg tablet 1 tab PO BID Qty: 14 0RF Rx Instructions: Take with yogurt or a probiotic while on calcium 500 mg Tablet 500 mg PO DAILY furosemide 20 mg Tablet 20 mg PO DAILY metoprolol succinate 25 mg Tablet Extended Release 24 Hr 25 mg PO HS cholecalciferol (vitamin D3) 100 mcg (4,000 unit) Capsule 4,000 mcg PO DAILY Discharge Instructions Instructions: COVID-19 and Chronic Health Conditions (ED) Additional Instructions: You are still showing positive for COVID-19. No evidence of pneumonia on the chest x-ray. Your labs are largely within normal limits. Please begin taking the prednisone again as directed, I did prescribe you some Paxlovid. You may need to call the right aid pharmacies to see if they have it in stock as there is a slight shortage of availability at this time. Also Donal Cameron for cough. Follow up with primary care provider in 3-5 days. Return to ED sooner if any worsening or concerns. Increase oral fluids. Please also use honey, tea, and Vicks vapo-rub. Continue to use your albuterol as previously prescribed. Referrals: Tolu Lazar [Primary Care Provider] - 3 days Natalya Peralta MD [ [facility] STAFF PHYSICIAN] - 5 days Discharge Data Discharge Date/Time-TO BE ENTERED AT DEPARTURE: 09/30/23 10:51
[2023-09-30] MEDS: Albuterol/Ipratropium 3 ML UPD VIAL UPD (09:04)
[2023-09-30] MEDS: methylPREDNISolone SUCC 125 MG VIAL IVP (09:28)
[2023-09-30 09:29] LABS: BE (Venous) 3 mmol/L (-2-3); HCO3 (Venous) 28 mmol/L (23-28); O2 Sat (Venous) 37 %; TCO2 (Venous) 26 mmol/L (24-29); pCO2 (Venous) 50 mmHg (41-51); pH (Venous) 7.36 (7.31-7.41); pO2 (Venous) 22 mmHg
[2023-09-30 09:31] LABS: HCT 39.5 % (36.0-46.0); HGB 12.5 g/dL (11.2-15.7); MCH 28.2 pg (27.0-33.0); MCHC 31.6 % (32.0-36.0); MCV 89 fL (80-95); MPV 9.2 fL (8.0-11.0); Platelet Count 319 10^3/uL (130-400); RBC 4.43 10^6/uL (3.93-5.22); RDW 12.8 % (11.7-14.6); RDW-SD 42.1 fL; WBC 13.15 10^3/uL (4.4-10.8)
[2023-09-30 09:33] VITALS: O2SAT 95
[2023-09-30 09:42] LABS: Absolute Eosinophil Count 0.53 10^3/uL (0.0-0.7); Absolute Lymphocyte Count 1.18 10^3/uL (1.2-3.4); Absolute Monocyte Count 0.66 10^3/uL (0.1-0.8); Absolute Neutrophil Count 10.26 10^3/uL (1.2-6.7); Bands % 3; Diff Comment Manual Differential; Metamyelocytes % 3; Myelocytes % 1; RBC Morphology Normal
[2023-09-30 09:49] LABS: ALT 30 U/L (14-59); AST 19 U/L (15-37); Albumin 3.2 g/dL (3.4-5.0); Alkaline Phosphatase 97 U/L (46-116); Anion Gap 9.3 mmol/L (3-11); BUN 15 mg/dL (7-18); Bilirubin, Total 0.6 mg/dL (0.2-1.0); CO2 27.7 mmol/L (21.0-32.0); CREATININE 0.9 mg/dL (0.55-1.02); Calcium 9.2 mg/dL (8.5-10.1); Chloride 100 mmol/L (98-107); Estimated GFR 65.44 (mL/min/1.73m2); Glucose 107 mg/dL (74-106); Potassium 3.8 mmol/L (3.5-5.1); Sodium 137 mmol/L (136-145)
[2023-09-30 09:53] LABS: Troponin I < 50 ng/L (<or=60)
[2023-09-30 10:20] LABS: Influenza A PCR Negative (Negative); Influenza B PCR Negative (Negative); RSV PCR Negative (Negative)
[2023-09-30 10:25] LABS: COVID-19 PCR Positive (Negative); Source Nasopharynx
[2023-09-30] MEDS: Benzonatate 100 MG CAP PO (10:39)
== END 2023-09-30 10:51 | disposition home or self-care (01) ==
PROVIDERS: Emergency Provider Registered Nurse Emergency; PCP Physician Assistant
DX: U07.1 COVID-19 (principal); I25.2 Old myocardial infarction
CPT/HCPCS: 36415; 80053; 82805; 87637; 93005; 94640; 96374; 99284; 71046; 84484; 85025; 93010; J2930; J7620

== ENCOUNTER → 2023-10-10 09:45 | Outpatient (BNVA) | payer OTHER, SELFPAY | PROVIDERS: PCP Physician Assistant; Referring Provider Physician Assistant; Visit Provider Student in an Organized Health Care Education/Training Program | DX: J47.9 Bronchiectasis, uncomplicated (principal) | CPT/HCPCS: 99214 ==

== ENCOUNTER → 2024-01-15 14:30 | Outpatient (BNVA) | payer OTHER, SELFPAY | PROVIDERS: PCP Nurse Practitioner Family; Referring Provider Nurse Practitioner Family; Visit Provider Physician Assistant Surgical | DX: J47.9 Bronchiectasis, uncomplicated (principal) | CPT/HCPCS: 99214 ==

== ENCOUNTER → 2024-02-02 09:31 | Outpatient (BNVA) | payer OTHER, SELFPAY | PROVIDERS: PCP Nurse Practitioner Family; Referring Provider Physician Assistant; Visit Provider Physician Assistant Surgical | DX: J47.9 Bronchiectasis, uncomplicated (principal) | CPT/HCPCS: 99214 ==

== ENCOUNTER 2024-02-20 17:34 | Outpatient (REF) | payer OTHER, SELFPAY | END 2024-02-20 17:35 | disposition home or self-care (01) | LOC: NCHCN 17:34 | PROVIDERS: PCP Nurse Practitioner Family; Visit Provider Nurse Practitioner Family | DX: R10.9 Unspecified abdominal pain (principal) | CPT/HCPCS: 87086 ==

== ENCOUNTER → 2024-03-02 02:04 | Outpatient (CLI) | payer OTHER, SELFPAY ==
--- NOTE | 2024-03-02 | DI.CT_ITS ---
Exam(s) CT ABDOMEN PELVIS WO EXAM: CT ABDOMEN PELVIS WO CLINICAL HISTORY: TERESA FLANK PAIN, R10.9, ABD PAIN. TECHNIQUE: Imaging Protocol: Axial computed tomography images with coronal and sagittal reformatted images were created and reviewed CONTRAST MATERIAL: Intravenous: none Oral: None COMPARISON: No exams were available for comparison FINDINGS: VISUALIZED LUNG BASES: No nodules nor pleural effusions evident. ABDOMEN: There is no ascites. LIVER: There are no obvious focal hepatic lesions evident of this noninfused study. GALLBLADDER/BILIARY: No obvious gallbladder pathology. CBD is not dilated. PANCREAS: No evidence of pancreatic mass nor dilatation of the pancreatic duct. SPLEEN: Spleen is not enlarged. No obvious intrasplenic lesions. ADRENALS: There are no significant adrenal masses. KIDNEYS:Left kidney appears unremarkable. There is slight prominence of the right collecting system with the right ureter being slightly prominent throughout its length but without an obvious radiopaqu e calculus therein nor obvious abnormality at the UVJ/urinary bladder level.. ABDOMINAL AORTA: Calcified but not significant large. The common iliac arteries are also calcified b ut not significantly enlarged. LYMPH NODES: There is no retroperitoneal nor paraaortic adenopathy. ABDOMINAL WALL: No evidence of significant anterior abdominal wall nor inguinal hernia. GI: There is no evidence of bowel obstruction, free air, nor abscess. PELVIS: LYMPH NODES: There is no intrapelvic nor inguinal adenopathy. GI: No evidence of appendicitis.There is sigmoid diverticulosis. No evidence of obvious acute divert iculitis. URINARY BLADDER: No calculi nor obvious masses evident REPRODUCTIVE: Uterus and adnexal regions appear unremarkable. No free fluid. OSSEOUS: No significant osseous lesions. IMPRESSION: 1. Slight prominence of the diameter of the right ureter throughout its length without an obvious rad iopaque calculus in the distal ureter nor obvious abnormality in the urinary bladder. Calcified phle boliths are noted adjacent to the ureter which are probably in vessel. Cannot exclude non radiopaque calculus or other pathology. 2. Opposite-left kidney appears unremarkable and there is no dilatation of the left collecting system . 3. Sigmoid diverticulosis without evidence of obvious acute diverticulitis. No evidence of appendici tis. RADIATION DOSE DELIVERED: 664.21mGy.cm Total DLP DATA REPOSITORY: All CT scans at this facility are submitted to the National Radiology Data Registry (NRDR) Dose Index Registry (DIR) with the [employer] [place] [employer] (A[employer]). RADIATION OPTIMIZATION: All CT scans at this facility use at least one of these dose optimization te chniques: automated exposure control; mA and/or kV adjustment per patient size (includes targeted exa ms where dose is matched to clinical indication); or iterative reconstruction.
== END ==
PROVIDERS: Visit Provider Nurse Practitioner Family
DX: R10.9 Unspecified abdominal pain (principal)
CPT/HCPCS: 74176

== ENCOUNTER 2024-03-04 15:59 | Outpatient (CLI) | payer OTHER, SELFPAY ==
[2024-03-04 16:12] LABS: Abs Immature Grans 0.01 10^3/uL (0.0-0.06); Absolute Basophil Count 0.05 10^3/uL (0.0-0.2); Absolute Eosinophil Count 0.53 10^3/uL (0.0-0.7); Absolute Lymphocyte Count 1.22 10^3/uL (1.2-3.4); Absolute Monocyte Count 0.51 10^3/uL (0.1-0.8); Basophils % 0.9 %; Eosinophils % 9.6 %; HGB 11.4 g/dL (11.2-15.7); Immature Grans % 0.2 %; Lymphocytes % 22.1 %; MCH 28.5 pg (27.0-33.0); MCHC 31.7 % (32.0-36.0); MCV 90 fL (80-95); MPV 9.4 fL (8.0-11.0); Monocytes % 9.2 %; Platelet Count 207 10^3/uL (130-400); RDW 13.3 % (11.7-14.6); RDW-SD 44.3 fL; WBC 5.52 10^3/uL (4.4-10.8)
[2024-03-04 16:15] LABS: Bilirubin Negative (Negative); Blood Negative (Negative); Clarity Clear (Clear); Glucose Negative (Negative); Ketones Negative (Negative); Leukocyte Esterase Negative (Negative); Nitrite Negative (Negative); Urobilinogen 0.2 mg/dL (Up to 0.2)
[2024-03-04 16:18] LABS: ESR 8 mm/hr (0-30)
[2024-03-04 17:05] LABS: ALT 30 U/L (14-59); AST 22 U/L (15-37); Albumin 3.5 g/dL (3.4-5.0); Alkaline Phosphatase 96 U/L (46-116); Anion Gap 4.9 mmol/L (3-11); BUN 17 mg/dL (7-18); Bilirubin, Total 0.4 mg/dL (0.2-1.0); CO2 28.1 mmol/L (21.0-32.0); Calcium 8.9 mg/dL (8.5-10.1); Chloride 105 mmol/L (98-107); Estimated GFR 57.31 (mL/min/1.73m2); Glucose 97 mg/dL (74-106); Potassium 3.6 mmol/L (3.5-5.1); Sodium 138 mmol/L (136-145); Total Protein 6.6 g/dL (6.4-8.2)
== END 2024-03-04 16:00 | disposition home or self-care (01) ==
LOC: LBO 15:59
PROVIDERS: Visit Provider Student in an Organized Health Care Education/Training Program
DX: N13.30 Unspecified hydronephrosis (principal)
CPT/HCPCS: 36415; 80053; 85652; 81003; 85025; 87086

== ENCOUNTER → 2024-03-16 02:14 | Outpatient (CLI) | payer OTHER, SELFPAY ==
--- NOTE | 2024-03-16 | DI.RAD_ITS ---
Exam(s) XR THORACIC SPINE COMPLETE EXAM: XR THORACIC SPINE COMPLETE CLINICAL HISTORY: PAIN THORACIC SPINE M54.6. TECHNIQUE: 2D digital imaging was performed. Three views. COMPARISON: No exams were available for comparison FINDINGS: BONES: There is no fracture or destructive lesion. The vertebral bodies and posterior elements are un remarkable. ALIGNMENT: Within normal limits. DISKS: Endplate osteophytes, greater in the mid thoracic region. SOFT TISSUE: Visualized lungs are clear. IMPRESSION: Degenerative changes. DATA REPOSITORY: RADIATION DOSE DELIVERED:
--- NOTE | 2024-03-16 | DI.RAD_ITS ---
Exam(s) XR LUMBAR SPINE COMPLETE EXAM: XR LUMBAR SPINE COMPLETE CLINICAL HISTORY: LOW BACK PAIN, m54.50. TECHNIQUE: 2D digital imaging was performed. Five views. COMPARISON: CT CT ABDOMEN PELVIS WO from 03/02/2024 FINDINGS: BONES: No acute fracture or destructive lesion. Vertebral body heights are maintained. Bilateral L5 spondylolysis and spondylolisthesis is again noted, unchanged. DISKS: Severe narrowing of the L5-S1 disk space. the remaining intervertebral disc spaces are mainta ined. ALIGNMENT: No scoliosis. SOFT TISSUE: Aorta calcified. IMPRESSION: Stable L5 spondylolysis and L5-S1 spondylolisthesis. Stable severe disc space narrowing at L5-S1. DATA REPOSITORY: RADIATION DOSE DELIVERED:
== END ==
PROVIDERS: Visit Provider Nurse Practitioner Family
DX: M54.6 Pain in thoracic spine (principal); M47.27 Other spondylosis with radiculopathy, lumbosacral region
CPT/HCPCS: 72072; 72110

== ENCOUNTER → 2024-04-19 00:54 | Outpatient (CLI) | payer OTHER, SELFPAY ==
--- NOTE | 2024-04-19 | DI.DEXA_ITS ---
Exam(s) XR DEXA BONE DENSITY W/WO MAI EXAM: XR DEXA BONE DENSITY W/WO MAI CLINICAL HISTORY: MENOPAUSAL STATE Z78.0 SCREENING OSTEOPOROSIS TECHNIQUE: COMPARISON: DX MAI from 12/27/2008 FINDINGS: Lateral Spine Image: Unremarkable. No compression deformities identified. Left hip: Total T-Score: -1.8. This compares to -1.3 on the prior examination. Total Z-Score: 0.2 T- and Z-scores: Findings are consistent with osteopenia. There is osteoporosis in the femoral neck with a T-score of -2.8. Lumbar Spine: Total T-Score: -4.1. This compares to -3.6 on the prior examination. Total Z-Score: -1.4 T- and Z-scores: Findings are consistent with osteoporosis. IMPRESSION: Osteoporosis seen in the lumbar spine and the left femoral neck.
== END ==
PROVIDERS: PCP Nurse Practitioner Family; Visit Provider Nurse Practitioner Family
DX: Z78.0 Asymptomatic menopausal state (principal); M81.0 Age-related osteoporosis without current pathological fracture
CPT/HCPCS: 77080

== ENCOUNTER 2024-04-23 12:09 | Outpatient (REF) | payer OTHER, SELFPAY ==
--- OUTSIDE RECORDS SUMMARY | 2024-04-23 12:12 | XMS_ITS | Continuity of Care Document ---
Author Organization [facility] [place] [address] Care Team Providers Care Prosthodontist Name Role Phone TIKA SIMENTAL Primary Care Provider [phone] [facility] OFFICE OTHER [facility] PULMONOLOGY Gaming Director [facility] CARDIOLOGY Facility Maintenance Helper [facility] Oracle Architect Assessment No assessment recorded. Plan of Treatment Reminders Order Date Submit Date Provider Last Modified By Organization Details Last Modified Time Details Appointments Nurse Visit 2023 09:10A M [facility] Nursing Staff Not available Not available Not available Follow Up 30 2023 02:00P M TIKA SIMENTAL Not available Not available Not available Lab vitamin D, 25-hydro xy, total, serum 2023 [facility]24 [facility] [address] [place], [address], 04/23/2024 09:15:29 Referral None recorded . Procedures None recorded . Surgeries None recorded . Imaging None recorded . Medication Orders None recorded . Patient TargetsNo targets recorded. Patient InstructionsNo instructions recorded. Reason for Referral Urologist Referral for [place] nephrosis Pt, 79-F, came to office of her PCP, Tika Simental 02/20/2024 w/complaint of urinary frequency and back pain. UA was unremarkable, sent for culture and no pathological colony counts noted. Pt. had bilateral CVA tenderness. CT was therefore ordered and performed 03/02/2024 with finding of mild right sided swelling of right ureter w/out obvious obstruction. A calcified entity was remarked upon near the right UVJ, but it was thought to be part of a phlebolith and not in the ureter at the junction. I have ordered CBC, CMP, ESR and repeat UA, to be performed at [facility] and am requesting prompt urology consult to determine cause of mild hydronephrosis. 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 UA WAS UNREMARKABLE, SENT FOR CULTURE AND NO PATHOLOGICAL COLONY COUNTS NOTED. PT. HAD BILATERAL CVA TENDERNESS. CT WAS THEREFORE ORDERED AND PERFORMED 03/02/2024 WITH FINDING OF MILD RIGHT SIDED SWELLING OF RIGHT URETER W/OUT OBVIOUS OBSTRUCTION. A CALCIFIED ENTITY WAS REMARKED UPON NEAR THE RIGHT UVJ, BUT IT WAS THOUGHT TO BE PART OF A PHLEBOLITH AND NOT IN THE URETER AT THE JUNCTION. I HAVE ORDERED CBC, CMP, ESR AND REPEAT UA, TO BE PERFORMED AT [facility] AND AM REQUESTING PROMPT UROLOGY CONSULT TO DETERMINE CAUSE OF MILD HYDRONEPHROSIS. Referring Physician: Samuel Cotto, [facility], Encounter Date: 03/08/2024 Results Created Date Observation Date Name Description Value Unit Range Abnormal Flag LastModifiedBy Organization Detail LastModifiedTime 04/19/20 24 04/19/2024 bone densi tomet ry imagi ng rpt Patien t Name: Jessica Ramires Unit #: [id number] Loc: DI Orderi ng Provid er: Tika Simental Accoun t #: [id number] Status : REG CLI Primar y Care Provid er: Tika Simental Date of Exam: 4 Sex: F Admiss ion Date: : 1944 Age: 79 Exam(s ) XR DEXA BONE DENSIT Y W/WO MAI EXAM: XR DEXA BONE DENSIT Y W/WO MAI CLINIC AL HISTOR Y: MENOPA USAL STATE Z78.0 SCREEN ING OSTEOP OROSIS TECHNI QUE: COMPAR TALISHA: DX MAI from 2008 FINDIN GS: Latera l Spine Image: Unrema rkable . No compre ssion deform ities identi fied. Left hip: Total T-Scor e: -1.8. This compar es to -1.3 on the prior examin ation. Total Z-Scor e: 0.2 T- and Z-scor es: Findin gs are consis tent with osteop enia. There is osteop orosis in the femora l neck with a T-scor e of -2.8. Lumbar Spine: Total T-Scor e: -4.1. This compar es to -3.6 on the prior examin ation. Total Z-Scor e: -1.4 T- and Z-scor es: Findin gs are consis tent with osteop orosis . IMPRES YOGI: Osteop orosis seen in the lumbar spine and the left femora l neck. Ordere d By: Tika Simental CC: ------ ------ ------ ------ ------ ------ ------ ------ ------ ------ ------ ------ - Dictat ed By: Martín Jaimes M.D. [id number] Transc ribed By: Martní Jaimes 1156 This is privil eged, confid ential inform ation intend ed only for the provid er named. Any use or distri bution by any person other than this provid er is strict ly prohib ited. If you receiv e this report in error, please notify us immedi ately at and return the origin al report to us at the addres s above. Thank- you. [place] [id number] [place], [address] 04/20/2024 07:22:27 0704/19/2024 DEXA No observ ation record ed. [facility] (Radiology) [address] [place], [address], 04/22/2024 15:49:34 Result Notes None recorded. Problems Name Status Onset Date Resolution Date Notes Provider Name and Address Organization Details Recorded Time Cardiomyopath y Active 201901/21/2023 - Comments only - Tika Simental PATTERN CHECKER - Continue to follow-up with Dr. Lawrence at cardiology. She will assess the need for continuation of furosemide 20 mg every other day. Problem Code: I42.9; Problem Code Type: ICD-10; [place], [place] - [facility] 4 09:05:23 Acute non-ST segment elevation myocardial infarction Active 2019 Problem Code: I21.4; Problem Code Type: ICD-10; Not Available [facility] 3 05:31:34 Melanocytic nevus Active 2019 Problem Code: D22.9; Problem Code Type: ICD-10; Not Available [facility] 3 05:31:34 Benign neoplasm of ovary Active 2019 Problem Code: D27.9; Problem Code Type: ICD-10; Not Available [facility] 3 05:31:34 Senile osteoporosis Active 2019 Problem Code: M81.0; Problem Code Type: ICD-10; [place] - [facility] 4 09:05:41 Trigeminal neuralgia Active 201904/21/2023 - Comments only - Tika Simental PATTERN CHECKER - Continue on inositol 2 tabs twice per day per neurologist saúl flannery from [facility]. she is not established with a neurologist up here. Did send in an emergency supply of Tegretol she used in past for exacerbations . IF she needs to use this she will call me and we can refer to neurology. Problem Code: G50.0; Problem Code Type: ICD-10; [place] - [facility] 4 09:05:50 Cough Completed 201908/18/2020 07/28/2020 - Comments only - Aurelia Riverahimi Theo INTELLIGENCE SPECIALIST - with low-grade fever and nasal congestion. Overall, physical exam reassuring. Wheezing on exam responded well to duoneb (ipratropium/ albuterol: 0.5/3 mg) - pt reported good improvement and easier breathing. VS normal, afebrile. CXR negative. Likely acute bronchitis, viral in origin. COVID-19 testing performed by Vanesa FINLEY according to protocol; pt advised to quarantine while awaiting results. Prescribed albuterol inhaler with spacer for use at home, as well as flonase for chronic post-nasal drip. Discussed concerning s/sx of pneumonia requiring further eval and red flags requiring emergency care. Problem Code: R05; Problem Code Type: ICD-10; ANUM GARRETT [address], [place], [address] , [place] - [facility] 4 10:57:18 Osteoarthriti s Active 202204/21/2023 - Comments only - Tika Simental PATTERN CHECKER - Continue with Voltaren gel topical hands mainly. Tylenol as needed. Problem Code: M19.90; Problem Code Type: ICD-10; JESSIKA GONSALVES RN [facility], [place] - [facility] 4 09:05:32 Chronic obstructive pulmonary disease Active 202204/21/2023 - Comments only - Tika Simental PATTERN CHECKER - Continue Advair HFA as directed. She will be seeing pulmonology on . As needed albuterol. Problem Code: J44.9; Problem Code Type: ICD-10; JESSIKA GONSALVES RN null, [place] - [facility] 4 09:05:27 Counseling Completed 202202/20/2023 01/21/2023 - Comments only - Tika Simental PATTERN CHECKER - Now established on my panel at [facility]. We will follow-up in 3 months to check in on chronic conditions. Problem Code: Z71.89; Problem Code Type: ICD-10; Not Available [facility] 3 05:31:35 Allergic rhinitis Active 202204/21/2023 - Comments only - Tika Simental PATTERN CHECKER - Continue Flonase as directed. Problem Code: J30.9; Problem Code Type: ICD-10; JESSIKA GONSALVES RN null, [facility] 4 09:05:15 Seasonal allergic rhinitis Active 202201/21/2023 - Comments only - Tika Simental PATTERN CHECKER - Okay to continue Naima as long as blood pressure home readings on systolic side not above 140. Problem Code: J30.2; Problem Code Type: ICD-10; JESSIKA GONSALVES RN null, [facility] 4 09:05:37 Low back pain Completed 202206/14/2023 Problem Code: M54.50; Problem Code Type: ICD-10; ANUM GARRETT [address], [place], [address] , [facility] 4 21:21:52 Cough Active 2022 Problem Code: R05.8; Problem Code Type: ICD-10; ANUM GARRE[address] Dr, [facility] [address] , [facility] 4 10:57:18 Acute upper respiratory infection Completed 202206/14/2023 Problem Code: J06.9; Problem Code Type: ICD-10; Not Available [facility] 3 05:31:35 Trigger thumb of left hand Completed 201904/14/2020 Problem Code: M65.312; Problem Code Type: ICD-10; Not Available [facility] 3 05:31:36 Screening for malignant neoplasm of skin Completed 202205/25/2023 Problem Code: Z12.83; Problem Code Type: ICD-10; Not Available [facility] 3 05:31:36 Herpesviral vesicular dermatitis Completed 201904/21/2023 Problem Code: B00.1; Problem Code Type: ICD-10; Not Available [facility] 3 05:31:36 Mild intermittent asthma Completed 202204/21/2023 Problem Code: J45.20; Problem Code Type: ICD-10; Not Available [facility] 3 05:31:36 Fatigue Completed 202204/21/2023 Problem Code: R53.83; Problem Code Type: ICD-10; Not Available [facility] 3 05:31:36 Trigger finger of right hand Completed 201904/14/2020 Problem Code: M65.341; Problem Code Type: ICD-10; Not Available [facility] 3 05:31:36 Disorder of skin and/or subcutaneous tissue Completed 201104/14/2020 Problem Code: L98.9; Problem Code Type: ICD-10; Not Available [facility] 3 05:31:36 Adult health examination Completed 201904/21/2023 Problem Code: Z00.00; Problem Code Type: ICD-10; Not Available [facility] 3 05:31:37 Increased frequency of urination Completed 202205/25/2023 Problem Code: R35.0; Problem Code Type: ICD-10; ANUM [address], [facility] [address] , [facility] 4 14:29:18 Acute upper respiratory infection Completed 202208/15/2023 Problem Code: J06.9; Problem Code Type: ICD-10; Not Available [facility] 4 05:34:27 Actinic keratosis Active [address], [facility] [address] [place] [address] 4 13:09:36 Bronchiectasi s Active 2023 DELVIS NEIL MA [facility], [facility] 4 11:33:56 Right flank pain Active [address], [facility] [address] , [facility] 4 14:26:48 Left flank pain Active [address], [facility] [id number] [place] [address] 4 14:28:46 Increased frequency of urination Active 2023 Problem Code: R35.0; Problem Code Type: ICD-10; ANUM GARRE[address] Dr, [facility] [address] , [facility] 4 14:29:18 Flank pain Active [address], [facility] [address] [place] [address] 4 15:53:53 Hydronephrosi s Active [address], [facility] [address] , [facility] 4 14:47:44 Thoracic back pain Active [address], [facility] [phone] [place] [address] 4 21:21:15 Low back pain Active 2023 Problem Code: M54.50; Problem Code Type: ICD-10; ANUM GAR[address] Dr, [facility] [address] [place] [address] 4 21:21:52 Problem Notes None recorded. Procedures Surgical History Date Name Laterality Status Provider Name and Address Organization Details Recorded Time 4 Cerumen Removal completed TUSHAR Zurita, [facility] 11/07/2023 10:59:58 Imaging Results None recorded. Procedure Notes None recorded. Medical Equipment None Reported. Allergies Allergen ID Allergen Name Allergen Category Reaction Reaction Severity Criticality Documentation Date Start Date Code Code System Note Provider Name and Address Organization Details Recorded Time 62996 methadone hydrochlo ride medicatio n headache Not available Not available 08/08/20232019 68095 7 RxNorm JESSIKA GONSALVES RN null, [facility] 4 10:34:58 13001 morphine sulfate medicatio n nausea vomiting Not available Not available Not available 08/08/20232019 90849 RxNorm JESSIKA GONSALVES RN null, [facility] 4 10:35:05 91124 Augmentin medicatio n diarrhea severe Not available 10/17/2023 56065 2 RxNorm JESSIKA GONSALVES RN null, [facility] 4 10:34:52 73175 codeine medicatio n abdominal pain Not available Not available 10/17/2023 2670 RxNorm JESSIKA GONSALVES RN null, [facility] 4 10:35:42 Medications Name Sig Start Date Stop Date Status Note LastModified by Organization Details LastModified Time status covid-19/ flu a-b antigen tst TEST DIRECTED TODAY 10/17 completed Not Available Not Available Not Available prednison e 10 mg tablet Take 40mg (4 tablets) by mouth one a day for 4 days, 30mg (3 tablets) once a day for 3 days, 20mg (2 tablets) once a day for 3 days , 10mg (1 tablet) for 2 days, 5mg (0.5 tablets) for 2 days 02/09 completed Not Available Not Available Not Available doxycycli ne hyclate 100 mg capsule TAKE ONE CAPSULE BY MOUTH TWICE DAILY 02/09 completed Not Available Not Available Not Available albuterol sulfate 2.5 mg/3 mL (0.083 %) solution for nebulizat ion INHALE 5MG (2 VIALS) VIA NEBULIZE R EVERY 6 HOURS NEEDED FOR SHORTNES S OF BREATH OR WHEEZING active Not Available Not Available No t Available azithromy brianne 250 mg tablet take 2 tablets by mouth TODAY then take 1 tablet DAILY FOR 4 DAYS 10/17 completed Not Available Not Available Not Available Lidocaine Viscous 2 % mucosal solution 15 ml every four to six hours as needed 12/19 completed Not Available Not Available Not Available albuterol sulfate 1.25 mg/3 mL solution for nebulizat ion Take 3 ml using nebulize r every six hours as needed for wheezing 01/21 completed Not Available Not Available Not Available prednison e 20 mg tablet TAKE ONE TABLET BY MOUTH THREE TIMES DAILY 10/17 completed Not Available Not Available Not Available fluoroura cil 5 % topical cream 02/09 completed Not Available Not Available Not Available acyclovir 400 mg tablet Take 1 tablet by mouth three times a day 12/19 completed Not Available Not Available Not Available Tegretol XR 100 mg tablet,ex tended release 1 tablet twice daily x1 week then 2 tablets a.m., 1 tablet p.m. x1 week then 2 tablets twice daily for trigemin al neuralgi a Brand Name only 08/22 completed Not Available Not Available Not Available Aerochamb er MV spacer Use 12/19 completed Not Available Not Available Not Available calcium 500 mg (as calcium carbonate 1,250 mg) tablet Take 1 tab by mouth daily 2019 active Not Available Not Available Not Avai lable benzonata te 100 mg capsule TAKE ONE CAPSULE BY MOUTH THREE TIMES DAILY NEEDED FOR COUGH 10/17 completed Not Available Not Available Not Available budesonid e 0.5 mg/2 mL suspensio n for nebulizat ion 0.5 mg (2 mL) inhaled daily via nebulize r active Not Available Not Available No t Available codeine 10 mg-guaife nesin 100 mg/5 mL oral liquid Take 5 mL ( 1 teaspoon ful ) by mouth NIGHTLY As Needed for allergy symptoms 10/17 completed Not Available Not Available Not Available furosemid e 20 mg tablet TAKE ONE TABLET BY MOUTH EVERY OTHER DAY active Not Available Not Available No t Available metoprolo l succinate ER 25 mg tablet,ex tended release 24 hr TAKE ONE TABLET BY MOUTH ONCE DAILY active Not Available Not Available No t Available levofloxa brianne 500 mg tablet Take 1 tablet by mouth once a day 07/26 completed Not Available Not Available Not Available levofloxa brianne 750 mg tablet take 1 tablet by mouth once daily 10/17 completed Not Available Not Available Not Available Tegretol 200 mg tablet Take 1 tablet by mouth three times a day as needed for exacerba tion 04/23 completed Not Available Not Available Not Available albuterol sulfate HFA 90 mcg/actua tion aerosol inhaler Inhale 2 puff as directed every four to six hours as needed 07/16 completed Not Available Not Available Not Available inositol 500 mg tablet 1 tablet twice daily 2019 active Not Available Not Available Not Avai lable fluticaso ne propionat e 50 mcg/actua tion nasal spray,[facility] [place] 1 to 2 spray into both nostrils once a day for post nasal drip/all ergic rhinitis . active Not Available Not Available No t Available amoxicill in 875 mg-potass ium clavulana te 125 mg tablet Take 1 tablet by mouth twice a day 07/23 completed Not Available Not Available Not Available Vitamin B-12 1,000 mcg tablet 1 tab daily 04/14 completed Not Available Not Available Not Available amoxicill in 500 mg-potass ium clavulana te 125 mg tablet take 1 tablet by mouth twice a day TAKE WITH YOGURT OR A PROBIOTI C 10/17 completed Not Available Not Available Not Available inositol 650 mg tablet Take 2 tablet by mouth twice a day active 375mg (from chiropra ctor) Not Available Not Available Not Available cholecalc iferol (vitamin D3) 25 mcg (1,000 unit) capsule 12/19 completed Not Available Not Available Not Available Vitamin D3 25 mcg (1,000 unit) tablet 2019 active Not Available Not Available Not Avai lable Mouthpiec e device Inhale 1 as directed use with spacer for inhalers 07/16 completed Not Available Not Available Not Available Naima-D 24 Hour 180 mg-240 mg tablet,ex tended release Take 1 tablet by mouth once a day 04/23 completed Not Available Not Available Not Available inositol 375mg 04/23 completed Not Available Not Available Not Available flaxseed oil 630mg with vitamin b6 2mg 1 tab BID active Not Available Not Available No t Available prednison e 02/09 completed from pulmonol ogy Not Available Not Available Not Available doxycycli ne hyclate 02/09 completed from pulmonol ogy Not Available Not Available Not Available Vitamin D3 take 2000 units by mouth once per day 04/23 completed Not Available Not Available Not Available Calcium 500 Take 1 tablet by mouth once a day 12/19 completed Not Available Not Available Not Available Advair HFA 45 mcg-21 mcg/actua tion aerosol inhaler Inhale 2 puff using inhaler twice a day 05/15 completed Not Available Not Available Not Available Mucinex 1,200 mg tablet, extended release Take 1 tablet by mouth twice a day 04/23 completed per pulmonol ogy Not Available Not Available Not Available Vitamin D3 125 mcg (5,000 unit) tablet Take 1 tablet every day by oral route. active Not Available Not Available No t Available Probiotic 50 billion1 tab daily active Not Available Not Available No t Available InnoSpire Essence device USE DIRECTED active nebulize r device Not Available Not Available Not Available calcium 195 mg (as calcium carbonate 500 mg) chewable tablet take 500mg by mouth once daily 04/23 completed Not Available Not Available Not Available Vitals None Recorded Social History Question Answer Notes LastModified by Organizat ion Details LastModified Time Tobacco Smoking Status Never Smoker JESSIKA GONSALVES RN [facility], [facility] 10/17/2023 10:42:58 Do You Have An Advance Directive? Yes Pt States She Has One; Will Verify It Is On File At Check-out Today Information not available 02/10/2024 Date Of Most Recent HSA 02/10/2024 Information not available 02/10/2024 Would You Say That, In General, Your Health Is Good Information not available 02/10/2024 How Often Does Anyone, Including Family, Physically Hurt You? Never Information not available 02/10/2024 How Often Does Anyone, Including Family, Insult Or Talk Down To You? Never Information not available 02/10/2024 How Often Does Anyone, Including Family, Threaten You With Harm? Never Information not available 02/10/2024 How Often Does Anyone, Including Family, Scream Or Curse At You? Never Information not available 02/10/2024 Within The Past 12 Months, You Worried That Your Food Would Run Out Before You Got Money To Buy More. Never True Information not available 02/10/2024 Within The Past 12 Months, The Food You Bought Just Didn't Last And You Didn't Have Money To Get More. Never True Information not available 02/10/2024 How Hard Is It For You To Pay For The Very Basics Like Food, Housing, Medical Care, And Heating? Would You Say It Is: Not Hard At All Information not available 02/10/2024 In The Past 12 Months, Has Lack Of Reliable Transportation Kept You From Medical Appointments, Meetings, Work Or From Getting Things Needed For Daily Living? No Information not available 02/10/2024 What Is Your Housing Situation Today? I Have Housing. Information not available 02/10/2024 How Often In The Past Year Have You Used Marijuana (including Smoking, Vaping, Dabbing, Or Edibles)? Never Information not available 02/10/2024 How Often In The Past Year Have You Used Prescription Medications That Were Not Prescribed To You? Never Information not available 02/10/2024 How Often In The Past Year Have You Taken Your Own Prescription Medication More Than The Way It Was Prescribed Or For Different Reasons Than Its Intended Purpose? Never Information not available 02/10/2024 How Often In The Past Year Have You Used Other Drugs (for Example, Heroin, Cocaine, Meth, Salvia, Inhalants)? Never Information not available 02/10/2024 Have You Ever Used IV Drugs? No Information not available 02/10/2024 What Matters Most To You? Family Information not available 02/10/2024 During The Past Four Weeks Has Your Physical And Emotional Health Limited Your Social Activities With Family And Friends, Neighbors, Or Groups? Not At All Information not available 02/10/2024 During The Past Four Weeks, Was Someone Available To Help You If You Needed And Wanted Help? (For Example, If You [place] Very Nervous, Lonely, Or Blue; Got Sick And Had To Stay In Bed; Needed Someone To Talk To; Needed Help With Daily Chores; Or Needed Help Just Taking Care Of Yourself.) Yes- As Much As I Wanted Information not available 02/10/2024 During The Past Four Weeks, What Was The Hardest Physical Activity You Could Do For At Least 2 Minutes? Heavy Cleaning 5 Houses A Week, Carrying Vacuum Regularly Information not available 02/10/2024 Can You Get To Places Out Of Walking Distance Without Help? (For Example, Can You Travel Alone On Buses Or Taxis, Or Drive Your Own Car?) No Information not available 02/10/2024 Can You Go Shopping For Groceries Or Clothes Without Someone? s Help? Yes Information not available 02/10/2024 Can You Prepare Your Own Meals? Yes Information not available 02/10/2024 Can You Do Your Housework Without Help? Yes Information not available 02/10/2024 Because Of Any Health Problems, Do You Need The Help Of Another Person With Your Personal Care Needs Such As Eating, Bathing, Dressing, Or Getting Around The House? No Information not available 02/10/2024 Can You Handle Your Own Money Without Help? Yes Information not available 02/10/2024 Are You Having Difficulties Driving Your Car? No Information not available 02/10/2024 Do You Always Fasten Your Seat Belt When You Are In A Car? Yes- Usually Information not available 02/10/2024 How Often During The Past Four Weeks Have You Been Bothered By Any Of The Following Problems? Falling Or Dizzy When Standing Up? Never Information not available 02/10/2024 Sexual Problems? Never Informat ion not available 02/10/2024 Trouble Eating Well? Never Information not available 02/10/2024 Teeth Or Denture Problems? Never Information not available 02/10/2024 Problems Using The Telephone? Never Information not available 02/10/2024 Tiredness Or Fatigue? Sometimes Information not available 02/10/2024 Have You Had 2 Or More Falls Or Sustained An Injury With A Fall In The Last Year? No Information not available 02/10/2024 Do You Have Difficulty With Walking Or Balance? No Information not available 02/10/2024 Do You Currently Use A Hearing Device? Yes Bilateral Hearing Aids, Does Not Need Regularly Information not available 02/10/2024 Do You Currently Have Any Trouble With Your Vision? No Wears Glasses Daily, Sees Optometry Once A Year Information not available 02/10/2024 Do You Exercise For About 20 Minutes Three Or More Days A Week? Yes- Most Of The Time Information not available 02/10/2024 Are There Any Safety Concerns In Your Home (see Attached [facility] Pamphlet)? No Information not available 02/10/2024 How Often Do You Have Trouble Taking Medicines The Way You Have Been Told To Take Them? I Always Take Them As Prescribed Information not available 02/10/2024 How Confident Are You That You Can Control And Manage Most Of Your Health Problems? Very Confident Information not available 02/10/2024 Do You Currently Have Any Difficulty With Your Hearing? No Information not available 02/10/2024 Date Of Most Recent SBINS 02/10/2024 Information not available 02/10/2024 Has Tobacco Cessation Counseling Been Provided? Yes Information not available 02/10/2024 On What Date Was Tobacco Cessation Counseling Provided? 10/17/2023 Information not available 02/10/2024 Do You Or Have You Ever Used Any Other Forms Of Tobacco Or Nicotine? No Information not available 10/17/2023 Sex: Female Functional Status None recorded. Mental Status None recorded. Family History Relationship Description Onset Age of this Age Resolved Age Notes Notes:*Problem: Father decea sed 88- + cerebral aneurysm, AAA Mother 40 with SLE Sister- colon cancer, pancreatic duct cancer, COPD Sister- Diverticulitis Brother- trauma related to ETOH Medical History No medical history recorded. Gynecological HistoryNo gynecological history recorded. Obstetrics History GPAL:G 0 P 0 0 0 0 Immunizations Vaccine Type Date Status Provider Name and Address Organization Details Recorded Time Pneumococcal conjugate PCV20, polysaccharide FPN555 conjugate, adjuvant, PF 02/10/2024 completed ANUM GARRETT [address], [place], [address], [facility], [facility]. 02/10/2024 18:27:41 Tdap 12/13/2008 completed Not Available [facility] 05:17:32 zoster live 01/13/2012 completed Not Available [facility] 08/08/2023 05:17:32 Td(adult) unspecified formulation 09/17/2019 completed Not Available [facility] 08/08/2023 05:17:32 COVID-19, mRNA, LNP-S, PF, 100 mcg/0.5mL dose or 50 mcg/0.25mL dose 11/24/2020 completed Not Available [facility] 08/08/2023 05:17:32 COVID-19, mRNA, LNP-S, PF, 100 mcg/0.5mL dose or 50 mcg/0.25mL dose 08/10/2021 completed Not Available [facility] 08/08/2023 05:17:32 SARS-COV-2 (COVID-19) vaccine, UNSPECIFIED 10/23/2020 completed Not Available [facility] 08/08/2023 05:17:33 pneumococcal polysaccharide PPV23 06/29/2010 completed Not Available [facility] 2022 05:17:33 influenza, unspecified formulation 10/03/2012 completed Not Available [facility] 08/08/2023 05:17:33 influenza, unspecified formulation 10/15/2017 completed Not Available [facility] 08/08/2023 05:17:33 influenza, unspecified formulation 05/30/2009 completed Not Available [facility] 08/08/2023 05:17:33 influenza, unspecified formulation 06/19/2016 completed Not Available [facility] 08/08/2023 05:17:33 influenza, unspecified formulation 06/29/2010 completed Not Available [facility] 08/08/2023 05:17:33 influenza, unspecified formulation 06/29/2015 completed Not Available [facility] 08/08/2023 05:17:33 influenza, unspecified formulation 07/04/2020 completed Not Available [facility] 08/08/2023 05:17:33 influenza, unspecified formulation 07/19/2013 completed Not Available [facility] 08/08/2023 05:17:33 influenza, unspecified formulation 08/08/2019 completed Not Available [facility] 08/08/2023 05:17:33 influenza, unspecified formulation 08/12/2014 completed Not Available [facility] 08/08/2023 05:17:34 influenza, unspecified formulation 08/16/2006 completed Not Available [facility] 08/08/2023 05:17:34 influenza, unspecified formulation 07/13/2023 completed Not Available [facility] 10/10/2023 05:30:42 COVID-19, mRNA, LNP-S, PF, 100 mcg/0.5mL dose or 50 mcg/0.25mL dose 08/26/2023 completed JESSIKA GONSALVES RN null, [facility] 10/17/2023 10:52:52 Pneumococcal conjugate PCV 13 01/27/2015 completed JESSIKA GONSALVES RN [facility], [facility] 02/10/2024 09:10:52 Past Encounters Encounter ID Performer Location Encounter Start Date Encounter Closed Date Diagnosis/Indication Diagnosis SNOMED-CT Code [id number] Waleska Rodrigues RN [address] [place] [address] 04/23/2024 08:46:04 04/23/2024 10:24:48 Senile osteoporosis [id number] Health Concerns Section Related Observation LastModified by Organization Detai ls LastModified Time None Recorded Concern Status LastModified by Organization Details LastModified Time None Recorded Payers Encounter Date Sequence Insurance Name Policy Number Policy Keller Covered Member ID Keller Member ID Guarantor Name 04/23/2024 1 [employer] (MEDICARE REPLACEMENT HMO) Heike Ramires [id number] Heike Ramires OBGyn Episode No OBEpisode recorded.
--- OUTSIDE RECORDS SUMMARY | 2024-04-23 12:12 | XMS_ITS | Continuity of Care Document ---
Author Organization [facility] Address 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 Education was provided on healthy nutrition, including a diet rich in fruits and vegetables, minimizing simple carbohydrates, salt, and saturated fats. Encouraged regular cardiovascular exercise such as walking at least 30 minutes daily, 5 times per week. Emphasized preventive health measures and educated pt on fall prevention and community-based lifestyle interventions to help reduce health risks and promote healthy living. Personalized prevention plan (PPP) completed and reviewed with patient. Patient was given written copy of PPP at conclusion of visit, detailing prior screening and 5-10 year future screening plan including: screenings for breast cancer and colorectal cancer, immunizations, and other age appropriate screenings consistent with USPSTF and ACIP guidelines [email or web address] Not available 02/10/2024 11:28:16 Plan of Treatment Reminders Order Date Submit Date Provider Last Modified By Organization Details Last Modified Time Details Appointments Nurse Visit 20 2023 09:10A M [facility] Nursing Staff Not available Not available Not available Follow Up 2023 02:00P M TIKA SIMENTAL Not available Not available Not available Lab None recorded . Referral None recorded . Procedures None recorded . Surgeries None recorded . Imaging MAMMO, screenin g, digital, bilatera l - due in July 20242023 024 [email or web address] [facility] Xray, [address], [place], [address], 04/23/2024 08:34:43 DEXA 2023 024 SILVANA [facility] Xray, [address], [place], [address], 04/19/2024 12:20:57 Medication Orders None recorded . Patient TargetsNo targets recorded. Patient Instructions Encounter Date Encounter Id Patient Instructions Last Modified By Organization Details Last Modified Time 02/10/2024 [id number] Discussed and explained advance directives such as standard forms to the - has advanced directives . In chart but last completed in 2008. She will review them with her son and perhaps update them and provide office copy if she would like updated advanced directives.. 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 Face to face discussion lasted for a duration of __5_ minutes. Not available 02/10/2024 18:32:39 Reason for Referral Urologist Referral for [place] nephrosis Pt, 79-F, came to office of [...] and repeat UA, to be performed at [facility] lab [place] and am requesting prompt urology consult to determine cause of mild hydronephrosis. 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 Referring Physician: Samuel Cotto, [facility], Encounter Date: 03/08/2024 Results Created Date Observation Date Name Description Value Unit Range Abnormal Flag LastModifiedBy Organization Detail LastModifiedTime 03/03/20 24 03/02/2024 CT imagi ng repor t Patien t Name: Jessica Ramires Unit #: [id number] Loc: DI Orderi ng Provid er: Tika Simental Accoun t #: [id number] Status : REG CLI Primar y Care Provid er: Unknow n,Unkn own Date of Exam: 01/20 Sex: F : 1944 Age: 79 Exam(s ) a CT:CT abdome n pelvis wo Exam(s ) CT ABDOME N PELVIS WO EXAM: CT ABDOME N PELVIS WO CLINIC AL HISTOR Y: TERESA FLANK PAIN, R10.9, ABD PAIN. TECHNI QUE: Imagin g Protoc ol: Axial comput ed tomogr aphy images with pitt l and sagitt al reform atted images were create d and review ed CONTRA ST MATERI AL: Intrav enous: none Oral: None COMPAR TALISHA: No exams were availa ble for compar talisha FINDIN GS: VISUAL IZED LUNG BASES: No nodule s nor pleura l effusi ons eviden t. ABDOME N: There is no ascite s. LIVER: There are no obviou s focal hepati c lesion s eviden t of this noninf used study. GALLBL ADDER/ BILIAR Y: No obviou s gallbl adder pathol ogy. CBD is not dilate d. PANCRE : No eviden ce of pancre atic mass nor dilata tion of the pancre atic duct. SPLEEN : Spleen is not enlarg ed. No obviou s intras plenic lesion s. ADRENA LS: There are no signif icant adrena l masses . KIDNEY S:Left kidney appear s unrema rkable . There is slight promin ence of the right collec ting system with the right ureter being slight ly promin ent throug hout its length but withou t an obviou s radiop aque calcul us therei n nor obviou s abnorm ality at the UVJ/ur inary bladde r level. . ABDOMI NAL AORTA: Calcif ied but not signif icant large. The common iliac arteri es are also calcif ied but not signif icantl y enlarg ed. LYMPH NODES: There is no retrop eriton eal nor paraao rtic adenop athy. ABDOMI NAL WALL: No eviden ce of signif icant anteri or abdomi nal wall nor inguin al hernia . GI: There is no eviden ce of bowel obstru ction, free air, nor absces s. PELVIS : LYMPH NODES: There is no intrap elvic nor inguin al adenop athy. GI: No eviden ce of append icitis .There is sigmoi d divert iculos is. No eviden ce of obviou s acute divert iculit is. URINAR Y BLADDE R: No calcul i nor obviou s masses eviden t REPROD UCTIVE : Uterus and adnexa l region s appear unrema rkable . No free fluid. OSSEOU S: No signif icant osseou s lesion s. IMPRES YOGI: 1. Slight promin ence of the diamet er of the right ureter throug hout its length withou t an obviou s radiop aque calcul us in the distal ureter nor obviou s abnorm ality in the urinar y bladde r. Calcif ied phlebo liths are noted adjace nt to the ureter which are probab ly in vessel . Cannot exclud e non radiop aque calcul us or other pathol ogy. 2. Opposi te-lef t kidney appear s unrema rkable and there is no dilata tion of the left collec ting system . 3. Sigmoi d divert iculos is withou t eviden ce of obviou s acute divert iculit is. No eviden ce of append icitis . RADIAT ION DOSE DELIVE RED: 664.21 mGy.cm Total DLP DATA REPOSI TORY: All CT scans at this facili ty are submit corwin to the Nation al Radiol ogy Data Regist ry (NRDR) Dose Index Regist ry (DIR) with the [place] an Annika cohen of Radiol ogy (ACR). RADIAT ION OPTIMI ZATION : All CT scans at this facili ty use at least one of these dose optimi zation techni ques: automa corwin exposu re contro l; mA and/or kV adjust ment per patien t size (inclu ree target ed exams where dose is matche d to clinic al indica tion); or iterat thomas recons tructi on. 603-0 029: Total DLP = 0.00 mGy-cm Ordere d By: Tika Simental CC: ------ ------ ------ ------ ------ ------ ------ ------ ------ ------ ------ ------ ---- Dictat ed By: Jet Rabago M.D. 1602 1602 Transc ribed By: Hima CONTRERAS,Letha meredith 1602 This is privil eged, confid ential inform ation intend ed only for the provid er named. Any use or distri bution by any person other than this provid er is strict ly prohib ited. If you receiv e this report in error, please notify us immedi dianely at and return the origin al report to us at the addres s above. Thank- you. [facility] [address], [place], [address] 03/05/2024 02:57:43 03/03/20 24 03/02/2024 CT imagi ng repor t Paticornelia t Name: Jessica Ramires Unit #: [id number] Loc: DI Orderi ng Provid er: Tika Simental Accoun t #: [id number] Status : REG CLI Primar y Care Provid er: Unknow n,Unkn own Date of Exam: 01/20 Sex: F : 1944 Age: 79 Exam(s ) a CT:CT abdome n pelvis wo Exam(s ) CT ABDOME N PELVIS WO EXAM: CT ABDOME N PELVIS WO CLINIC AL HISTOR Y: TERESA FLANK PAIN, R10.9, ABD PAIN. TECHNI QUE: Imagin g Protoc ol: Axial comput ed tomogr aphy images with pitt l and sagitt al reform atted images were create d and review ed CONTRA ST MATERI AL: Intrav enous: none Oral: None COMPAR TALISHA: No exams were availa ble for compar talisha FINDIN GS: VISUAL IZED LUNG BASES: No nodule s nor pleura l effusi ons eviden t. ABDOME N: There is no ascite s. LIVER: There are no obviou s focal hepati c lesion s eviden t of this noninf used study. GALLBL ADDER/ BILIAR Y: No obviou s gallbl adder pathol ogy. CBD is not dilate d. PANCRE : No eviden ce of pancre atic mass nor dilata tion of the pancre atic duct. SPLEEN : Spleen is not enlarg ed. No obviou s intras plenic lesion s. ADRENA LS: There are no signif icant adrena l masses . KIDNEY S:Left kidney appear s unrema rkable . There is slight promin ence of the right collec ting system with the right ureter being slight ly promin ent throug hout its length but withou t an obviou s radiop aque calcul us therei n nor obviou s abnorm ality at the UVJ/ur inary bladde r level. . ABDOMI NAL AORTA: Calcif ied but not signif icant large. The common iliac arteri es are also calcif ied but not signif icantl y enlarg ed. LYMPH NODES: There is no retrop eriton eal nor paraao rtic adenop athy. ABDOMI NAL WALL: No eviden ce of signif icant anteri or abdomi nal wall nor inguin al hernia . GI: There is no eviden ce of bowel obstru ction, free air, nor absces s. PELVIS : LYMPH NODES: There is no intrap elvic nor inguin al adenop athy. GI: No eviden ce of append icitis .There is sigmoi d divert iculos is. No eviden ce of obviou s acute divert iculit is. URINAR Y BLADDE R: No calcul i nor obviou s masses eviden t REPROD UCTIVE : Uterus and adnexa l region s appear unrema rkable . No free fluid. OSSEOU S: No signif icant osseou s lesion s. IMPRES YOGI: 1. Slight promin ence of the diamet er of the right ureter throug hout its length withou t an obviou s radiop aque calcul us in the distal ureter nor obviou s abnorm ality in the urinar y bladde r. Calcif ied phlebo liths are noted adjace nt to the ureter which are probab ly in vessel . Cannot exclud e non radiop aque calcul us or other pathol ogy. 2. Opposi te-lef t kidney appear s unrema rkable and there is no dilata tion of the left collec ting system . 3. Sigmoi d divert iculos is withou t eviden ce of obviou s acute divert iculit is. No eviden ce of append icitis . RADIAT ION DOSE DELIVE RED: 664.21 mGy.cm Total DLP DATA REPOSI TORY: All CT scans at this facili ty are submit corwin to the Nation al Radiol ogy Data Regist ry (NRDR) Dose Index Regist ry (DIR) with the [place] monika cohen of Radiol ogy (ACR). RADIAT ION OPTIMI ZATION : All CT scans at this facili ty use at least one of these dose optimi zation techni ques: automa corwin exposu re contro l; mA and/or kV adjust ment per patien t size (inclu ree target ed exams where dose is matche d to clinic al indica tion); or iterat thomas recons tructi on. 603- 029: Total DLP = 0.00 mGy-cm Ordere d By: Tika Simental CC: ------ ------ ------ ------ ------ ------ ------ ------ ------ ------ ------ ------ ---- Dictat ed By: Jet Rabago M.D. 1602 160 Transc ribed By: Hima CONTRERAS,Letha meredith 160 This is privil eged, confid ential inform ation intend ed only for the provid er named. Any use or distri bution by any person other than this provid er is strict ly prohib ited. If you receiv e this report in error, please notify us immedi dianely at and return the origin al report to us at the addres s above. Thank- you. [address] [place], [address] 03/05/2024 02:57:44 03/03/20 24 03/02/2024 CT, abdom en + pelvi s, w/o contr ast No observ ation record ed. [email or web address] [facility] (Radiology) [address] [place] [address] [place], [address], 03/05/2024 02:54:35 03/03/20 24 03/02/2024 CT, abdom en + pelvi s, w/o contr ast No observ ation record ed. [email or web address] [facility] (Radiology) [address] [place] [address] [place], [address], 03/05/2024 02:54:35 03/16/20 24 03/16/2024 x-ray imagi ng repor t Patien t Name: Jessica Ramires Unit #: [id number] Loc: DI Orderi ng Provid er: Tika Simental Accoun t #: [id number] Status : REG CLI Primar y Care Provid er: Unknow n,Unkn own Date of Exam: Sex: F Admiss ion Date: : 1944 Age: 79 Exam(s ) XR THORAC IC SPINE COMPLE TE EXAM: XR THORAC IC SPINE COMPLE TE CLINIC AL HISTOR Y: PAIN THORAC IC SPINE M54.6. TECHNI QUE: 2D digita l imagin g was perfor med. Three views. COMPAR TALISHA: No exams were availa ble for compar talisha FINDIN GS: BONES: There is no fractu re or destru ctive lesion . The verteb ral bodies and zigzagger ior elemen ts are unrema rkable . ALIGNM ENT: Within normal limits . DISKS: Endpla te osteop hytes, greate r in the mid thorac ic region . SOFT TISSUE : Visual ized lungs are clear. IMPRES YOGI: Vera rative change s. DATA REPOSI TORY: RADIAT ION DOSE DELIVE RED: Ordere d By: Tika Simental CC: ------ ------ ------ ------ ------ ------ ------ ------ ------ ------ ------ ------ - Dictat ed By: Nica Greenwood 1646 Transc ribed By: William Bland 1646 This is privil eged, confid ential inform ation intend ed only for the provid er named. Any use or distri bution by any person other than this provid er is strict ly prohib ited. If you receiv e this report in error, please notify us immedi ately at and return the origin al report to us at the addres s above. Thank- you. [email or web address] [facility] [address] [place], [address] 03/18/2024 12:21:22 03/16/20 24 03/16/2024 x-ray imagi ng repor t Patien t Name: Jessica Ramires Unit #: [id number] Loc: DI Orderi ng Provid er: Tika Simental Landry t #: [id number] Status : REG CLI Primar y Care Provid er: Unknow n,Unkn own Date of Exam: Sex: F Admiss ion Date: : 1944 Age: 79 Exam(s ) XR LUMBAR SPINE COMPLE TE EXAM: XR LUMBAR SPINE COMPLE TE CLINIC AL HISTOR Y: LOW BACK PAIN, m54.50 . TECHNI QUE: 2D digita l imagin g was perfor med. Five views. COMPAR TALISHA: CT CT ABDOME N PELVIS WO from 2023 FINDIN GS: BONES: No acute fractu re or destru ctive lesion . Verteb ral body height s are mainta ined. Bilate ral L5 spondy lolysi s and spondy lolist hesis is again noted, unchan ged. DISKS: Severe narrow ing of the L5-S1 disk space. the remain ing interv ertebr al disc spaces are mainta ined. ALIGNM ENT: No scolio sis. SOFT TISSUE : Aorta calcif ied. IMPRES YOGI: Stable L5 spondy lolysi s and L5-S1 spondy lolist hesis. Stable severe disc space narrow ing at L5-S1. DATA REPOSI TORY: RADIAT ION DOSE DELIVE RED: Ordere d By: Tika Simental CC: ------ ------ ------ ------ ------ ------ ------ ------ ------ ------ ------ ------ - Dictat ed By: Nica Greenwood 1654 Transc ribed By: William Bland 1654 This is privil eged, confid ential inform ation intend ed only for the provid er named. Any use or distri bution by any person other than this provid er is strict ly prohib ited. If you receiv e this report in error, please notify us immedi mele at and return the origin al report to us at the addres s above. Thank- you. [email or web address] [address] [place], [address] 03/18/2024 12:21:23 03/17/20 24 03/16/2024 XR, thora cic spine , 2 view No observ ation record ed. [email or web address] [facility] (Radiology) [address] [place] [address] [place], [address], 03/18/2024 11:59:52 03/17/20 24 03/16/2024 XR, lumbo sacra l spine , compl ete No observ ation record ed. [email or web address] [facility] (Radiology) [address] [place] [address] [place], [address], 03/18/2024 11:59:41 04/19/20 24 04/19/2024 bone densi tomet ry imagi ng rpt Patien t Name: Jessica Ramires Unit #: [id number] Loc: DI Orderi ng Provid er: Tika Simental Accoun t #: [id number] Status : REG CLI Primar y [...] Jaimes M.D. 1156 1156 Transc ribed By: Martín Jaimes 1156 This is privil eged, confid ential inform ation intend ed only for the provid er named. Any use or distri bution by any person other than this provid er is strict ly prohib ited. If you receiv e this report in error, please notify us immedi ately at [phone] and return the origin al report to us at the addres s above. Thank- you. [email or web address] [address] [place], [address] 04/20/2024 07:22:27 04/19/20 24 04/19/2024 DEXA No observ ation record ed. [facility] (Radiology) [address] [place] [address] [place], [address], 04/22/2024 15:49:34 Result Notes None recorded. 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 Lawrence at cardiology. She will assess the need for continuation of furosemide 20 mg every other day. Problem Code: I42.9; Problem Code Type: ICD-10; JESSIKA GONSALVES RN [facility], [facility] 4 09:05:23 Acute non-ST segment elevation myocardial infarction Active 2019 Problem Code: I21.4; Problem Code Type: ICD-10; Not Available [facility] 3 05:31:34 Melanocytic nevus Active 2019 Problem Code: D22.9; Problem Code Type: ICD-10; Not Available [facility] 3 05:31:34 Benign neoplasm of ovary Active 2019 Problem Code: D27.9; Problem Code Type: ICD-10; Not Available [facility] 3 05:31:34 Senile osteoporosis Active 2019 Problem Code: M81.0; Problem Code Type: ICD-10; JESSIKA GONSALVES RN [facility], [facility] 4 09:05:41 Trigeminal neuralgia Active 201904/21/2023 - Comments only - Tika Simental [employer] - Continue on inositol 2 tabs twice per day per neurologist saúl flannery from [place]. she is not established with a neurologist up here. Did send in an emergency supply of Tegretol she used in past for exacerbations . IF she needs to use this she will call me and we can refer to neurology. 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 [...] Type: ICD-10; ANUM GARRETT [address], [place], [address] , [place] - [facility] 4 10:57:18 Osteoarthriti s Active 202204/21/2023 - Comments only - Tika Simental [employer]ARY - Continue with Voltaren gel topical hands mainly. Tylenol as needed. Problem Code: M19.90; Problem Code Type: ICD-10; JESSIKA GONSALVES RN null, [place] - [facility] 4 09:05:32 Chronic obstructive pulmonary disease Active 202204/21/2023 - Comments only - Tika Simental [employer] SE[employer]ARY - Continue Advair HFA as directed. She will be seeing pulmonology on . As needed albuterol. Problem Code: J44.9; Problem Code Type: ICD-10; JESSIKA GONSALVES RN null, [place] [facility] 4 09:05:27 Counseling Completed 202202/20/2023 01/21/2023 - Comments only - Tika Simental [employer] SE[employer]ARY - Now established on my panel at [facility]. We will follow-up in 3 months to check in on chronic conditions. Problem Code: Z71.89; Problem Code Type: ICD-10; Not Available [facility] 3 05:31:35 Allergic rhinitis Active 202204/21/2023 - Comments only - Tika Simental [employer] SE[employer]ARY - Continue Flonase as directed. Problem Code: J30.9; Problem Code Type: ICD-10; JESSIKA GONSALVES RN null, [place] - [facility] 4 09:05:15 Seasonal allergic rhinitis Active 202201/21/2023 - Comments only - Tika Simental [employer] SE[employer]ARY - Okay to continue Naima as long as blood pressure home readings on systolic side not above 140. Problem Code: J30.2; Problem Code Type: ICD-10; JESSIKA GONSALVES RN [facility], [facility] 4 09:05:37 Low back pain Completed 202206/14/2023 Problem Code: M54.50; Problem Code Type: ICD-10; ANUM GARRETT [address], [facility] [address] [facility] 4 21:21:52 Cough Active 2022 Problem Code: R05.8; Problem Code Type: ICD-10; ANUM GARRETT [address], [facility] [address] [facility] 4 10:57:18 Acute upper respiratory infection Completed 202206/14/2023 Problem Code: J06.9; Problem Code Type: ICD-10; Not Available [facility] 3 05:31:35 Trigger thumb of left hand Completed 201904/14/2020 Problem Code: M65.312; Problem Code Type: ICD-10; Not Available [facility] 05:31:36 Screening for malignant neoplasm of skin Completed 202205/25/2023 Problem Code: Z12.83; Problem Code Type: ICD-10; Not Available [facility] 3 05:31:36 Herpesviral vesicular dermatitis Completed 201904/21/2023 Problem Code: B00.1; Problem Code Type: ICD-10; Not Available [facility] 3 05:31:36 Mild intermittent asthma Completed 202204/21/2023 Problem Code: J45.20; Problem Code Type: ICD-10; Not Available [facility] 3 05:31:36 Fatigue Completed 202204/21/2023 Problem Code: R53.83; Problem Code Type: ICD-10; Not Available [facility] 3 05:31:36 Trigger finger of right hand Completed 201904/14/2020 Problem Code: M65.341; Problem Code Type: ICD-10; Not Available [facility] 3 05:31:36 Disorder of skin and/or subcutaneous tissue Completed 201104/14/2020 Problem Code: L98.9; Problem Code Type: ICD-10; Not Available [facility] 3 05:31:36 Adult health examination Completed 201904/21/2023 Problem Code: Z00.00; Problem Code Type: ICD-10; Not Available [facility] 3 05:31:37 Increased frequency of urination Completed 202205/25/2023 Problem Code: R35.0; Problem Code Type: ICD-10; ANUM GARRETT Dr, [address] 4 14:29:18 Acute upper respiratory infection Completed 202208/15/2023 Problem Code: J06.9; Problem Code Type: ICD-10; Not Available [facility] 4 05:34:27 Actinic keratosis Active [address], [address] 4 13:09:36 Bronchiectasi s Active 2023 DELVIS NEIL MA [facility], [facility] 4 11:33:56 Right flank pain Active [address], [facility] [id number] [place] [address] 4 14:26:48 Left flank pain Active [address], [address] 4 14:28:46 Increased frequency of urination Active 2023 Problem Code: R35.0; Problem Code Type: ICD-10; ANUM GARRETT Dr, [facility] [address] , [facility] 4 14:29:18 Flank pain Active [address], [facility] [address] [facility] 4 15:53:53 Hydronephrosi s Active [address], [facility] [address] [facility] 4 14:47:44 Thoracic back pain Active [address], [facility] [address] [place] [address] 4 21:21:15 Low back pain Active 2023 Problem Code: M54.50; Problem Code Type: ICD-10; ANUM GARRETT Dr, [facility] [address] [place] [address] 4 21:21:52 Problem Notes None recorded. Procedures Surgical History Date Name Laterality Status Provider Name and Address Organization Details Recorded Time 4 Cerumen Removal completed Waleska Rodrigues RN [facility], [facility] 11/07/2023 10:59:58 Imaging Results None recorded. Procedure Notes None recorded. Medical Equipment None Reported. Allergies Allergen ID Allergen Name Allergen Category Reaction Reaction Severity Criticality Documentation Date Start Date Code Code System Note Provider Name and Address Organization Details Recorded Time 92005 methadone hydrochlo ride medicatio n headache Not available Not available 08/08/20232019 60408 7 RxNorm JESSIKA GONSALVES RN [facility], [facility] 4 10:34:58 52190 morphine sulfate medicatio n nausea vomiting Not available Not available Not available 08/08/20232019 15038 RxNorm TUSHAR LAO, [facility] 4 10:35:05 07867 Augmentin medicatio n diarrhea severe Not available 10/17/2023 25989 2 RxNorm JESSIKA GONSALVES RN null, [facility] 4 10:34:52 03979 codeine medicatio n abdominal pain Not available Not available 10/17/2023 2670 RxNorm JESSIKA GONSALVES RN null, [facility] 4 10:35:42 Medications Name Sig Start [...] e 50 mcg/actua tion nasal spray,[employer] [place] 1 to 2 spray into both nostrils [...] Not Available Not Available Not Available Vitals Date Recorded Body height Body mass index (BMI) Body weight Body temperature Heart rate Respiratory rate Systolic blood pressure Diastolic blood pressure Provider Name and Address Organization Details Last Updated DateTime 147.32 cm 24.6 kg/m2 55301.4 6 g 98.4 [degF] 60 /min 16 /min 138 mm[Hg] 60 mm[Hg] JESSIKA GONSALVES RN [facility] 11:14:24 Social History Question Answer Notes LastModified by Organizat ion Details LastModified Time Tobacco Smoking Status Never Smoker JESSIKA GONSALVES RN [facility], [facility] 10/17/2023 10:42:58 Do You Have An [...] And Wanted Help? (For Example, If You Bear Very Nervous, Lonely, Or Blue; Got Sick [...] Safety Concerns In Your Home (see Attached [facility] Pamphlet)? No Information not available 02/10/2024 How [...] Details Recorded Time Pneumococcal conjugate PCV20, polysaccharide [id number] conjugate, adjuvant, PF 02/10/[address], [place], [address], [facility]. 02/10/2024 18:27:41 Tdap 12/13/2008 completed Not Available [facility] 05:17:32 zoster live 01/13/2012 completed Not Available [facility] 08/08/2023 05:17:32 Td(adult) unspecified formulation 09/17/2019 completed Not Available [facility] 08/08/2023 05:17:32 COVID-19, mRNA, LNP-S, PF, 100 mcg/0.5mL dose or 50 mcg/0.25mL dose 11/24/2020 completed Not Available [facility] 08/08/2023 05:17:32 COVID-19, mRNA, LNP-S, PF, 100 mcg/0.5mL dose or 50 mcg/0.25mL dose 08/10/2021 completed Not Available [facility] 08/08/2023 05:17:32 SARS-COV-2 (COVID-19) vaccine, UNSPECIFIED 10/23/2020 completed Not Available [facility] 08/08/2023 05:17:33 pneumococcal polysaccharide PPV23 06/29/2010 completed Not Available [facility] 2022 05:17:33 influenza, unspecified formulation 10/03/2012 completed Not Available [facility] 08/08/2023 05:17:33 influenza, unspecified formulation 10/15/2017 completed Not Available [facility] 08/08/2023 05:17:33 influenza, unspecified formulation 05/30/2009 completed Not Available [facility] 08/08/2023 05:17:33 influenza, unspecified formulation 06/19/2016 completed Not Available [facility] 08/08/2023 05:17:33 influenza, unspecified formulation 06/29/2010 completed Not Available [facility] 08/08/2023 05:17:33 influenza, unspecified formulation 06/29/2015 completed Not Available [facility] 08/08/2023 05:17:33 influenza, unspecified formulation 07/04/2020 completed Not Available [facility] 08/08/2023 05:17:33 influenza, unspecified formulation 07/19/2013 completed Not Available [facility] 08/08/2023 05:17:33 influenza, unspecified formulation 08/08/2019 completed Not Available [facility] 08/08/2023 05:17:33 influenza, unspecified formulation 08/12/2014 completed Not Available [facility] 08/08/2023 05:17:34 influenza, unspecified formulation 08/16/2006 completed Not Available [facility] 08/08/2023 05:17:34 influenza, unspecified formulation 07/13/2023 completed Not Available [facility] 10/10/2023 05:30:42 COVID-19, mRNA, LNP-S, PF, 100 mcg/0.5mL dose or 50 mcg/0.25mL dose 08/26/2023 completed TUSHAR LAO, [facility] 10/17/2023 10:52:52 Pneumococcal conjugate PCV 13 01/27/2015 completed JESSIKA GONSALVES RN [facility], [facility] 02/10/2024 09:10:52 Past Encounters Encounter ID Performer Location Encounter Start Date Encounter Closed Date Diagnosis/Indication Diagnosis SNOMED-CT Code [id number] ANUM GARRETT [address] [place] [address] 02/10/2024 10:49:03 02/10/2024 12:31:07 Adult health examination 991813254 Screening mammography 24 967780 Screening for osteoporosis 810056232 Screening for malignant neoplasm of colon 532398960 Administra tion of pneumococcal vaccine 86889500 Health Concerns Section Related Observation LastModified by Organization Detai ls LastModified Time None Recorded Concern Status LastModified by Organization Details LastModified Time None Recorded Payers Encounter Date Sequence Insurance Name Policy Number Policy Keller Covered Member ID Keller Member ID Guarantor Name 02/10/2024 1 [employer] (MEDICARE REPLACEMENT HMO) Heike Ramires [id number] Heike Ramires Notes Date Note Type Note Provider Name and Address Organization Details Recorded Time 02/10/2024 text/html HPI Notes: Medic are Annual Wellness Visit Reported by patient. Diet and Nutrition: follows recommended diet Fracture Risk: no history of fractures; no recent explained fracture; no sudden unexplained fractures; no previous musculoskeletal injuries Physical Activity: exercises on a regular basis; recent increase in physical activity; good physical condition Depression Risk: never feels sad, empty, or tearful; no loss of interest in activities; no significant changes in weight; no sleep disturbances or insomnia; no agitation; no loss of energy; no feelings of worthlessness or guilt; no thoughts of suicide; no history of depression; no history of mood disorders Orientation: oriented to person, place, time Concentration and Memory: no decreased concentrating ability; no memory lapses or loss; does not forget words Speech/Motor difficulties: no speech difficulties; no difficulty expressing formulated concepts; no difficulty with fine manipulative tasks; no difficulty writing/copying; no slowed reaction time; does not knock things over when trying to pick them up Hearing: no loss of hearing Vision: no vision problems Activities of Daily Living: able to bathe with limited or no assistance; able to control urination and bowels; able to dress with limited or no assistance; able to feed self with limited or no assistance; able to get out of chair or bed with limited or no assistance; able to groom with limited or no assistance; able to toilet with limited or no assistance Instrumental Activities of Daily Living: able to do house work with limited or no assistance; able to grocery shop with limited or no assistance; able to manage medications with limited or no assistance; able to manage money with limited or no assistance; able to prepare meals with limited or no assistance; able to use the phone with limited or no assistance; able to manage transportation with limited or no assistance Falls Risk Assessment: no frequent falls while walking; no fall in the past year; no fall since last visit; no dizziness/vertigo Home Safety: no unsafe prasanth hazards; no unsafe stairs; no unsafe gas appliances; working smoke/CO detectors; wears protective head gear for biking/high velocity; use of seatbelts; no high risk sexual behavior; no vision or hearing loss while driving; no firearms; has hand bars in the bathroom/shower; good lighting in the home Heike is a pleasant 79-year-old female here today for an annual Medicare wellness visit. She has no acute concerns today. Would like to continue screening mammograms as well as screening for colon cancer and bone density screenings. She would be qualified to get the Prevnar 20 vaccine and would like this today. Care team includes cardiology Dr. Lawrence, pulmonology Dr. Macias, [facility]. Chronic conditions and acute concerns not addressed at this visit as it was a preventative health care annual wellness visit. ANUM GARRETT [address], [place], [address], [facility]. 02/10/2024 18:32:47 OBGyn Episode No OBEpisode recorded.
--- OUTSIDE RECORDS SUMMARY | 2024-04-23 12:12 | XMS_ITS | Continuity of Care Document ---
Author Organization [email or web address], [facility] Address [address] [place] [address] Care Team Providers Care Sales Project Manager Name Role Phone TIKA SIMENTAL Primary Care Provider [facility] OFFICE OTHER [facility] Drum Sander Setter [facility] Tissue Inserter [facility] Senior Sourcing Manager Assessment No assessment recorded. Plan of Treatment Reminders Order Date Submit Date Provider Last Modified By Organization Details Last Modified Time Details Appointments Nurse Visit 20 2023 09:10A M [facility] Nursing Staff Not available Not available Not available Follow Up 30 2023 02:00P M TIKA SIMENTAL Not available Not available Not available Lab culture, urine + sensitiv ity 2023 024 [facility] (Registration ), [address], [address], 02/27/2024 11:59:48 urinalys is, dipstick 2023 024 [facility], [address] [place], [address], 02/21/2024 09:19:23 Referral None recorded . Procedures None recorded . Surgeries None recorded . Imaging CT, abdomen + pelvis, w/o contrast 2023 024 [email or web address] [facility], [address], [place], [address], 02/27/2024 14:57:41 Medication Orders None recorded . Patient TargetsNo targets recorded. Patient Instructions Encounter Date Encounter Id Patient Instructions Last Modified By Organization Details Last Modified Time 02/20/2024 [id number] nice to see you today take tylenol 2 of the 500mg capsules up to 3 times per day heat off and on if symptoms change, call office we will call you about dexa scan scheduling we will call you about CT scan scheduling for abdomen/pelvis to look at kidneys and bladder Not available 02/20/2024 14:40:43 Reason for Referral Urologist Referral for [place] nephrosis Pt, 79-F, came to office of [...] and repeat UA, to be performed at [facility] lab [place] and am requesting prompt urology consult to determine cause of mild hydronephrosis. Referring Physician: Samuel Cotto, Family Medicine, Encounter Date: 03/04/2024 Back Shoe Worker Referral for Pr olapse of female genital organs Referring Physician: Tika Simental, [facility] Medicine, Encounter Date: 03/08/2024 Urologist Referral for [place] nephrosis UROLOGIST REFERRAL - PT, 79-F, CAME [...] AND REPEAT UA, TO BE PERFORMED AT [facility] [place] AND AM REQUESTING PROMPT UROLOGY CONSULT TO DETERMINE CAUSE OF MILD HYDRONEPHROSIS. Referring Physician: Samuel Cotto, Family Medicine, Encounter Date: 03/08/2024 Results Created Date Observation Date Name Description Value Unit Range Abnormal Flag LastModifiedBy Organization Detail LastModifiedTime 02/20/20 24 02/20/2024 urina lysis , dipst ick Leukocytes Negati ve Not Available [facility] [address], [place], [address], 02/20/2024 14:26:56 02/20/20 24 02/20/2024 urina lysis , dipst ick Nitrite negati ve Not Available [facility] [address], [place], [address], 02/20/2024 14:26:56 02/20/20 24 02/20/2024 urina lysis , dipst ick Urobilinogen .2 Not Available [facility] [address], [place], [address], 02/20/2024 14:26:56 02/20/20 24 02/20/2024 urina lysis , dipst ick Protein Trace Not Available [facility] [address], [place], [address], 02/20/2024 14:26:56 02/20/20 24 02/20/2024 urina lysis , dipst ick pH 5.0 Not Available [facility] [address], [place], [address], 02/20/2024 14:26:56 02/20/20 24 02/20/2024 urina lysis , dipst ick Blood Negati ve Not Available [facility] [address], [place], [address], 02/20/2024 14:26:56 02/20/20 24 02/20/2024 urina lysis , dipst ick Specific [place] 1.030 Not Available [facility] [address], [place], [address], 02/20/2024 14:26:56 02/20/20 24 02/20/2024 urina lysis , dipst ick Ketone Negati ve Not Available [facility] [address], [place], [address], 02/20/2024 14:26:56 02/20/20 24 02/20/2024 urina lysis , dipst ick Bilirubin Negati ve Not Available [facility] [address], [place], [address], 02/20/2024 14:26:56 02/20/20 24 02/20/2024 urina lysis , dipst ick Glucose Negati ve Not Available [facility] [address], [place], [address], 02/20/2024 14:26:56 02/20/20 24 02/20/2024 urina lysis , dipst ick Appearance Slight ly Cloudy Not Available [facility] [address], [place], [address], 02/20/2024 14:26:56 02/20/20 24 02/20/2024 urina lysis , dipst ick Color Yellow Not Available [facility] [address], [place], [address], 02/20/2024 14:26:56 03/03/20 24 03/02/2024 CT imagi andrew charles t Leia t Name: Jessica Ramires Unit #: [id number] Loc: DI Orderi ng Provid er: Tika Simental Accoun t #: [id number] Status : REG CLI Primar y [...] tion); or iterat thomas recons tructi on. 0604-0 029: Total DLP = 0.00 mGy-cm Ordere d By: Tika Simental CC: ------ ------ ------ ------ ------ ------ ------ ------ ------ ------ ------ ------ ---- Dictat ed By: Jet Rabago M.D. 1602 1602 Transc ribed By: Hima CONTRERAS,Letha masoud 1602 This is privil eged, confid ential [...] at the addres s above. Thank- you. [facility] [address] [place], [address] 03/05/2024 02:57:43 03/03/20 24 03/02/2024 CT imagi ng repor t Patien t Name: Jessica Ramires Unit #: [id number] Loc: DI Orderi ng Provid er: Tika Simental Accoun t #: [id number] Status : REG CLI Primar y [...] tomogr aphy images with pitt l and luba al reform atted images were create d [...] tion); or iterat thomas recons tructi on. 0604-0 029: Total DLP = 0.00 mGy-cm Ordere [...] at the addres s above. Thank- you. [email or web address] [place] [address] [place], [address] 03/05/2024 02:57:44 03/03/20 24 03/02/2024 CT, abdom en + pelvi s, w/o contr ast No observ ation record ed. [email or web address] [facility] (Radiology) [address] [place] [address] [place], [address], 03/05/2024 02:54:35 03/03/20 24 03/02/2024 CT, abdom en + pelvi s, w/o contr ast No observ ation record ed. [email or web address] [facility] (Radiology) [address] [place] [address] [place], [address], 03/05/2024 02:54:35 03/16/20 24 03/16/2024 x-ray imagi ng repor t Leia t Name: Jessica Ramires Unit #: [id number] Loc: DI Orderi ng Provid er: Tika Simental Accoun t #: [id number] Status : REG CLI Primar y [...] lesion . The verteb ral bodies and patient account analyst ior elemen ts are unrema rkable . ALIGNM ENT: Within normal limits . DISKS: Endpla te osteop hytes, greate r in the mid thorac ic region . SOFT TISSUE : Visual ized lungs are clear. IMPRES YOGI: Degene rative change s. DATA REPOSI TORY: RADIAT [...] the addres s above. Thank- you. [email or web address] [place] [address] [place], [address] 03/18/2024 12:21:22 03/16/20 24 03/16/2024 x-ray imagi ng repor t Patien t Name: Jessica Ramires Unit #: [id number] Loc: DI Orderi ng Provid er: Tika Simental Accphillip t #: [id number] Status : REG CLI Primar y [...] the addres s above. Thank- you. [email or web address] [address] [facility] [place], [address] 03/18/2024 12:21:23 03/17/20 24 03/16/2024 XR, thora cic spine , 2 view No observ ation record ed. [email or web address] [facility] (Radiology) [address] [place] [address] Dr [facility] [place], [address], 03/18/2024 11:59:52 03/17/20 24 03/16/2024 XR, lumbo sacra l spine , compl ete No observ ation record ed. [email or web address] [facility] (Radiology) [address] [place] [address] Dr [facility] [place], [address], 03/18/2024 11:59:41 04/19/20 24 04/19/2024 bone densi tomet ry imagi ng rpt Patien t Name: Jessica Ramries Unit #: [id number] Loc: DI Orderi ng Provid er: Tika Simental Accoun t #: [id number] Status : REG CLI Primar y [...] at the addres s above. Thank- you. [email or web address] [address] [place], [address] 04/20/2024 07:22:27 04/19/20 24 04/19/2024 DEXA No observ ation record ed. [facility] (Radiology) [address] [place] [address] [place], [address], 04/22/2024 15:49:34 Result Notes None recorded. Problems Name Status Onset Date Resolution Date Notes Provider Name and Address Organization Details Recorded Time Cardiomyopath y Active 201901/21/2023 - Comments only - Tika Simental SUPERVISOR INSTRUMENT MAINTENANCE - Continue to follow-up with Dr. Lawrence at cardiology. She will assess the need for continuation of furosemide 20 mg every other day. Problem Code: I42.9; Problem Code Type: ICD-10; JESSIKA GONSALVES RN null, [place] - [facility] 4 09:05:23 Acute non-ST segment elevation myocardial infarction Active 2019 Problem Code: I21.4; Problem Code Type: ICD-10; Not Available [facility] 3 05:31:34 Melanocytic nevus Active 2019 Problem Code: D22.9; Problem Code Type: ICD-10; Not Available [facility] 3 05:31:34 Benign neoplasm of ovary Active 2019 Problem Code: D27.9; Problem Code Type: ICD-10; Not Available [facility] 3 05:31:34 Senile osteoporosis Active 2019 Problem Code: M81.0; Problem Code Type: ICD-10; JESSIKA GONSALVES RN null, [place] - [facility] 4 09:05:41 Trigeminal neuralgia Active 201904/21/2023 - Comments only - Tika Hola SUPERVISOR INSTRUMENT MAINTENANCE - Continue on inositol 2 tabs twice per day per neurologist saúl flannery from [place]. she is not established with a neurologist up here. Did send in an emergency supply of Tegretol she used in past for exacerbations . IF she needs to use this she will call me and we can refer to neurology. Problem Code: G50.0; Problem Code Type: ICD-10; JESSIKA GONSALVES RN null, [facility] 4 09:05:50 Cough Completed 201908/18/2020 07/28/2020 - Comments only - Aurelia ROWAN - with low-grade fever and nasal congestion. [...] Type: ICD-10; ANUM GARRETT [address], [place], [address] , [facility] 4 10:57:18 Osteoarthriti s Active 202204/21/2023 - Comments only - Tika Simental SUPERVISOR INSTRUMENT MAINTENANCE - Continue with Voltaren gel topical hands mainly. Tylenol as needed. Problem Code: M19.90; Problem Code Type: ICD-10; JESSIKA GONSALVES RN null, [facility] 4 09:05:32 Chronic obstructive pulmonary disease Active 202204/21/2023 - Comments only - Tika Simental SUPERVISOR INSTRUMENT MAINTENANCE - Continue Advair HFA as directed. She will be seeing pulmonology on . As needed albuterol. Problem Code: J44.9; Problem Code Type: ICD-10; JESSIKA GONSALVES RN null, [facility] 4 09:05:27 Counseling Completed 202202/20/2023 01/21/2023 - Comments only - Tika Simental SUPERVISOR INSTRUMENT MAINTENANCE - Now established on my panel at [facility]. We will follow-up in 3 months to check in on chronic conditions. Problem Code: Z71.89; Problem Code Type: ICD-10; Not Available [facility] 3 05:31:35 Allergic rhinitis Active 202204/21/2023 - Comments only - Tika Simental SUPERVISOR INSTRUMENT MAINTENANCE - Continue Flonase as directed. Problem Code: J30.9; Problem Code Type: ICD-10; JESSIKA GONSALVES RN null, [facility] 4 09:05:15 Seasonal allergic rhinitis Active 202201/21/2023 - Comments only - Tika Simental SUPERVISOR INSTRUMENT MAINTENANCE - Okay to continue Naima as long as blood pressure home readings on systolic side not above 140. Problem Code: J30.2; Problem Code Type: ICD-10; JESSIKA GONSALVES RN null, [facility] 4 09:05:37 Low back pain Completed 202206/14/2023 Problem Code: M54.50; Problem Code Type: ICD-10; ANUM GARRETT [address], [place], [address] , [facility] 4 21:21:52 Cough Active 2022 Problem Code: R05.8; Problem Code Type: ICD-10; ANUM GAR[address], [place], [address] , [facility] 4 10:57:18 Acute upper respiratory infection Completed 202206/14/2023 Problem Code: J06.9; Problem Code Type: ICD-10; Not Available [facility] 3 05:31:35 Trigger thumb of left hand Completed 201904/14/2020 Problem Code: M65.312; Problem Code Type: ICD-10; Not Available [facility] 3 05:31:36 Screening for malignant neoplasm of skin Completed 202205/25/2023 Problem Code: Z12.83; Problem Code Type: ICD-10; Not Available [facility] 3 05:31:36 Herpesviral vesicular dermatitis Completed 201904/21/2023 Problem Code: B00.1; Problem Code Type: ICD-10; Not Available [facility] 3 05:31:36 Mild intermittent asthma Completed 202204/21/2023 Problem Code: J45.20; Problem Code Type: ICD-10; Not Available [facility] 3 05:31:36 Fatigue Completed 202204/21/2023 Problem Code: R53.83; Problem Code Type: ICD-10; Not Available [facility] 3 05:31:36 Trigger finger of right hand Completed 201904/14/2020 Problem Code: M65.341; Problem Code Type: ICD-10; Not Available [facility] 3 05:31:36 Disorder of skin and/or subcutaneous tissue Completed 201104/14/2020 Problem Code: L98.9; Problem Code Type: ICD-10; Not Available [facility] 3 05:31:36 Adult health examination Completed 201904/21/2023 Problem Code: Z00.00; Problem Code Type: ICD-10; Not Available [facility] 3 05:31:37 Increased frequency of urination Completed 202205/25/2023 Problem Code: R35.0; Problem Code Type: ICD-10; AN[address], [place], [address] , [facility]. 4 14:29:18 Acute upper respiratory infection Completed 202208/15/2023 Problem Code: J06.9; Problem Code Type: ICD-10; Not Available [facility] 4 05:34:27 Actinic keratosis Active [address], [facility] [address] , [facility] 4 13:09:36 Bronchiectasi s Active 2023 DELVIS NEIL [place] [facility], [facility] 4 11:33:56 Right flank pain Active [address], [facility] [address] , [facility] 4 14:26:48 Left flank pain Active [address], [address] 4 14:28:46 Increased frequency of urination Active 2023 Problem Code: R35.0; Problem Code Type: ICD-10; ANUM GARRETT Dr, [facility] [address] , [facility] 4 14:29:18 Flank pain Active [address], [facility] [address] 4 15:53:53 Hydronephrosi s Active [address], [facility] [address] , [facility] 4 14:47:44 Thoracic back pain Active [address], [facility] [address] , [facility] 4 21:21:15 Low back pain Active 2023 Problem Code: M54.50; Problem Code Type: ICD-10; ANUM GARRETT Dr, [facility] [address] , [facility] 06/16/202 4 21:21:52 Problem Notes None recorded. Procedures Surgical History Date Name Laterality Status Provider Name and Address Organization Details Recorded Time 4 Cerumen Removal completed TUSHAR Zurita, [facility] 11/07/2023 10:59:58 Imaging Results None recorded. Procedure Notes None recorded. Medical Equipment None Reported. Allergies Allergen ID Allergen Name Allergen Category Reaction Reaction Severity Criticality Documentation Date Start Date Code Code System Note Provider Name and Address Organization Details Recorded Time 68031 methadone hydrochlo ride medicatio n headache Not available Not available 08/08/20232019 47784 7 RxNorm TUSHAR LAO, [facility] 4 10:34:58 56248 morphine sulfate medicatio n nausea vomiting Not available Not available Not available 08/08/20232019 36585 RxNorm TUSHAR LAO, [facility] 4 10:35:05 87971 Augmentin medicatio n diarrhea severe Not available 10/17/2023 51794 2 RxNoTUSHAR Morales, [facility] 4 10:34:52 63023 codeine medicatio n abdominal pain Not available Not available 10/17/2023 2670 RxTUSHAR Solorzano, [facility] 4 10:35:42 Medications Name Sig Start Date [...] e 50 mcg/actua tion nasal spray,[employer] [place] 1 to 2 spray into both nostrils [...] Not Available Vitals Date Recorded Body height Heart rate Respiratory rate Systolic blood pressure Diastolic blood pressure Provider Name and Address Organization Details Last Updated DateTime 02/20/2024 147.32 cm 62 /min 14 /min 118 mm[Hg] 64 mm[Hg] JESSIKA GONSALVES RN [facility] 14:00:36 Social History Question Answer Notes LastModified by Organizat ion Details LastModified Time Tobacco Smoking Status Never Smoker JESSIKA GONSALVES RN [facility], [facility] 10/17/2023 10:42:58 Do You Have An Advance [...] And Wanted Help? (For Example, If You Lizemores Very Nervous, Lonely, Or Blue; Got Sick [...] Safety Concerns In Your Home (see Attached CDC Pamphlet)? No Information not available 02/10/2024 How [...] Details Recorded Time Pneumococcal conjugate PCV20, polysaccharide IAC320 conjugate, adjuvant, PF 02/10/[address] [place], [address], [facility] 02/10/2024 18:27:41 Tdap 12/13/2008 completed Not Available [facility] 05:17:32 zoster live 01/13/2012 completed Not Available [facility] 08/08/2023 05:17:32 Td(adult) unspecified formulation 09/17/2019 completed Not Available [facility] 08/08/2023 05:17:32 COVID-19, mRNA, LNP-S, PF, 100 mcg/0.5mL dose or 50 mcg/0.25mL dose 11/24/2020 completed Not Available [facility] 08/08/2023 05:17:32 COVID-19, mRNA, LNP-S, PF, 100 mcg/0.5mL dose or 50 mcg/0.25mL dose 08/10/2021 completed Not Available [facility] 08/08/2023 05:17:32 SARS-COV-2 (COVID-19) vaccine, UNSPECIFIED 10/23/2020 completed Not Available [facility] 08/08/2023 05:17:33 pneumococcal polysaccharide PPV23 06/29/2010 completed Not Available [facility] 2022 05:17:33 influenza, unspecified formulation 10/03/2012 completed Not Available [facility] 08/08/2023 05:17:33 influenza, unspecified formulation 10/15/2017 completed Not Available [facility] 08/08/2023 05:17:33 influenza, unspecified formulation 05/30/2009 completed Not Available [facility] 08/08/2023 05:17:33 influenza, unspecified formulation 06/19/2016 completed Not Available [facility] 08/08/2023 05:17:33 influenza, unspecified formulation 06/29/2010 completed Not Available [facility] 08/08/2023 05:17:33 influenza, unspecified formulation 06/29/2015 completed Not Available [facility] 08/08/2023 05:17:33 influenza, unspecified formulation 07/04/2020 completed Not Available [facility] 08/08/2023 05:17:33 influenza, unspecified formulation 07/19/2013 completed Not Available [facility] 08/08/2023 05:17:33 influenza, unspecified formulation 08/08/2019 completed Not Available [facility] 08/08/2023 05:17:33 influenza, unspecified formulation 08/12/2014 completed Not Available [facility] 08/08/2023 05:17:34 influenza, unspecified formulation 08/16/2006 completed Not Available [facility] 08/08/2023 05:17:34 influenza, unspecified formulation 07/13/2023 completed Not Available [facility] 10/10/2023 05:30:42 COVID-19, mRNA, LNP-S, PF, 100 mcg/0.5mL dose or 50 mcg/0.25mL dose 08/26/2023 completed TUSHAR LAO, [facility] 10/17/2023 10:52:52 Pneumococcal conjugate PCV 13 01/27/2015 completed TUSHAR LAO, [facility] 02/10/2024 09:10:52 Past Encounters Encounter ID Performer Location Encounter Start Date Encounter Closed Date Diagnosis/Indication Diagnosis SNOMED-CT Code [id number] ANUM GARRETT [facility] [place] [address] 02/10/2024 10:49:03 02/10/2024 12:31:07 Adult health examination 099941034 Screening mammography 24 308599 Screening for osteoporosis 326733846 Screening for malignant neoplasm of colon 298940241 Administra tion of pneumococcal vaccine 72157986 [id number] ANUM GARRETT [facility] [address] [place] [address] 02/13/2024 08:42:25 02/13/2024 09:30:11 Screening for malignant neoplasm of colon 365606713 [id number] ANUM GARRETT [facility] [address] [place] [address] 02/20/2024 13:26:03 02/20/2024 14:43:02 Right flank pain 556433644 Left flank pain 14947225 9 Increased frequency of urination 190352518 Health Concerns Section Related Observation LastModified by Organization Detai ls LastModified Time None Recorded Concern Status LastModified by Organization Details LastModified Time None Recorded Payers Encounter Date Sequence Insurance Name Policy Number Policy Keller Covered Member ID Keller Member ID Guarantor Name 02/20/2024 1 [employer] (MEDICARE REPLACEMENT HMO) Heike Ramires [id number] Heike Ramires Notes Date Note Type Note Provider Name and Address Organization Details Recorded Time 02/20/2024 text/html HPI Notes: Jessica craft is a pleasant 79-year-old female here today for an acute visit for complaint of mid-back pain for past couple of weeks, constant and aching. Previously was intermittent for about a month but has worsened and become more frequent. Ibuprofen not helpful, motrin or Tylenol not helpful either. He is somewhat helpful but then as soon as the heating pad is off it comes right back. Able to sleep, pain relieved when lying down with heat pad on. Reporting increased frequency in urination. Denies any pelvic pain or abdominal pain. Denies fever or chills. No known history of kidney stones. ANUM GARRETT [address], [place], [address], [facility]. 02/25/2024 16:55:04 OBGyn Episode No OBEpisode recorded.
--- OUTSIDE RECORDS SUMMARY | 2024-04-23 12:12 | XMS_ITS | Clinical Summary ---
Author Organization [facility] Address [address] [place] [address] Care Team Providers Care Recycling Operator Name Role Phone Unavailable Primary Care Provider Unavailabl e Social History Tobacco Use Types Packs/Day Years Used Date Smoking Tobacco: Never Assessed Sex and Gender Information Value Date Recorded Sex Assigned at Not on file Gender Identity Not on file Sexual Orientation Not on file Plan of Treatment Health Maintenance Due Date Last Done Comments Hepatitis C Screen 1945 RSV Immunization ( o r 60+ Years) (1 - 1-dose 60+ series) 2005 Fall Risk Screening 2010 COVID-19 Vaccine (2022-24 season) 2023
--- OUTSIDE RECORDS SUMMARY | 2024-04-23 12:12 | XMS_ITS | Referral Summary ---
Author Organization [facility] Address [address] [place] [address] Care Team Providers Care Trolley Operator Name Role Phone Unavailable Primary Care Provider Unavailabl e Social History Tobacco Use Types Packs/Day Years Used Date Smoking Tobacco: Never Assessed Sex and Gender Information Value Date Recorded Sex Assigned at Not on file Gender Identity Not on file Sexual Orientation Not on file Plan of Treatment Not on file
--- OUTSIDE RECORDS SUMMARY | 2024-04-23 12:12 | XMS_ITS | Continuity of Care Document ---
Author Organization [facility], [facility] [place] [address] Care Team Providers Care Quality Control Lab Technician Name Role Phone TIKA SIMENTAL Primary Care Provider [facility] OFFICE OTHER [facility] PULMONOLOGY Car Pilot [facility] CARDIOLOGY Surgical Dental Assistant [facility] DERMATOLOGY Inspector Publications Assessment No assessment recorded. Plan of Treatment Reminders Order Date Submit Date Provider Last Modified By Organization Details Last Modified Time Details Appointments Nurse Visit 20 2023 09:10A M [facility] Nursing Staff Not available Not available Not available Follow Up 30 2023 02:00P M TIKA SIMENTAL Not available Not available Not available Lab fecal occult blood, immunoa ssay, stool 2023 024 [email or web address] [facility], [address], [place], [address], 02/13/2024 09:54:23 Referral None recorde d. Procedures None recorde d. Surgeries None recorde d. Imaging None recorde d. Medication Orders None recorde d. Patient TargetsNo targets recorded. Patient InstructionsNo instructions recorded. Reason for Referral Urologist Referral for [place] nephrosis Pt, 79-F, came to office of [...] and repeat UA, to be performed at [facility] lab [place] and am requesting prompt urology consult to determine cause of mild hydronephrosis. 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 Referring Physician: Samuel Cotto, [facility], Encounter Date: 03/08/2024 Results Created Date Observation Date Name Description Value Unit Range Abnormal Flag LastModifiedBy Organization Detail LastModifiedTime 02/13/20 24 02/13/2024 fecal occul t blood , immun oassa y, stool iFOB negati ve Not Available [facility] [address], [place], [address], 02/13/2024 08:58:08 03/03/20 24 03/02/2024 CT imagi ng repor t Paticornelia t Name: Jessica Ramires Unit #: [id number] Loc: DI Orderi ng Provid er: Tika Simental Accphillip t #: [id number] Status : REG CLI Primar y [...] at the addres s above. Thank- you. [facility] [address], [place], [address] 03/05/2024 02:57:43 03/03/20 24 03/02/2024 CT imagi ng repor t Patien t Name: Jessica Ramires Unit #: [id number] Loc: DI Orderi ng Provid er: Tika Simental Accphillip t #: [id number] Status : REG CLI Primar y [...] comput ed tomogr aphy images with pitt shahana and luba al reform atted images were [...] facili ty are submit corwin to the [facility] al Radiol ogy Data Regist ry (NRDR) [...] at the addres s above. Thank- you. [email or web address] [place] [address] [place], [address] 03/05/2024 02:57:44 03/03/20 24 03/02/2024 CT, abdom en + pelvi s, w/o contr ast No observ ation record ed. [email or web address] [facility] (Radiology) [address] [place] [address] [place], [address], 03/05/2024 02:54:35 03/03/20 24 03/02/2024 CT, abdom en + pelvi s, w/o contr ast No observ ation record ed. [email or web address] [facility] (Radiology) [address] [place] [address] [place], [address], 03/05/2024 02:54:35 03/16/20 24 03/16/2024 x-ray imagi ng repor t Paticornelia t Name: Jessica Ramires Unit #: [id number] Loc: DI Orderi ng Provid er: Tika Simental Accoun t #: [id number] Status : REG CLI Primar y [...] lesion . The verteb ral bodies and product representative ior elemen ts are unrema rkable . [...] the addres s above. Thank- you. [email or web address] [place] [id number], [place], [address] 03/18/2024 12:21:22 03/16/20 24 03/16/2024 x-ray imagi ng repor t Paticornelia t Name: Jessica Ramires Unit #: [id number] Loc: DI Orderi ng Provid er: Tika Simental t #: [id number] Status : REG CLI Primar y [...] error, please notify us immedi ately at [phone] and return the origin al report to us at the addres s above. Thank- you. [email or web address] [address] [place], [address] 03/18/2024 12:21:23 03/17/20 24 03/16/2024 XR, thora cic spine , 2 view No observ ation record ed. [email or web address] [facility] (Radiology) [address] [place] [address] [place], [address], 03/18/2024 11:59:52 03/17/20 24 03/16/2024 XR, lumbo sacra l spine , compl ete No observ ation record ed. [email or web address] [facility] (Radiology) [address] [place] [address] [place], [address], 03/18/2024 11:59:41 04/19/20 24 04/19/2024 bone densi tomet ry imagi ng rpt Patien t Name: Jessica Ramires Unit #: [id number] Loc: DI Orderi ng Provid er: Tika Simental Accoun t #: [id number] Status : REG CLI Primar y [...] M.D. 1156 1156 Transc ribed By: Martín Jamies 1156 This is privil eged, confid ential inform ation intend ed only for the provid er named. Any use or distri bution by any person other than this provid er is strict ly prohib ited. If you receiv e this report in error, please notify us immdarlin shabazz at [phone] and return the origin al report to us at the addres s above. Thank- you. [email or web address] [address] [place], [address] 04/20/2024 07:22:27 04/19/20 24 04/19/2024 DEXA No observ ation record ed. [facility] (Radiology) [address] [place] [address] [place], [address], 04/22/2024 15:49:34 Result Notes None recorded. Problems Name Status Onset Date Resolution Date Notes Provider Name and Address Organization Details Recorded Time Cardiomyopath y Active 201901/21/2023 - Comments only - Tika Simental [facility] - Continue to follow-up with Dr. Lawrence at cardiology. She will assess the need for continuation of furosemide 20 mg every other day. Problem Code: I42.9; Problem Code Type: ICD-10; JESSIKA GONSALVES RN null, [place] - [facility] 4 09:05:23 Acute non-ST segment elevation myocardial infarction Active 2019 Problem Code: I21.4; Problem Code Type: ICD-10; Not Available [facility] 3 05:31:34 Melanocytic nevus Active 2019 Problem Code: D22.9; Problem Code Type: ICD-10; Not Available [facility] 3 05:31:34 Benign neoplasm of ovary Active 2019 Problem Code: D27.9; Problem Code Type: ICD-10; Not Available [facility] 3 05:31:34 Senile osteoporosis Active 2019 Problem Code: M81.0; Problem Code Type: ICD-10; JESSIKA GONSALVES RN null, [place] - [facility] 4 09:05:41 Trigeminal neuralgia Active 201904/21/2023 - Comments only - Tika Simental [facility] - Continue on inositol 2 tabs twice per day per neurologist súal flannery from [place]. she is not established with a neurologist up here. Did send in an emergency supply of Tegretol she used in past for exacerbations . IF she needs to use this she will call me and we can refer to neurology. Problem Code: G50.0; Problem Code Type: ICD-10; JESSIKA GONSALVES RN null, [facility] 4 09:05:50 Cough Completed 201908/18/2020 07/28/2020 [...] Type: ICD-10; ANUM GARRETT [address], [place], [address] , [facility] - [facility] 4 10:57:18 Osteoarthriti s Active 202204/21/2023 - Comments only - Tika Simental [facility] - Continue with Voltaren gel topical hands mainly. Tylenol as needed. Problem Code: M19.90; Problem Code Type: ICD-10; JESSIKA GONSALVES RN null, [facility] 4 09:05:32 Chronic obstructive pulmonary disease Active 202204/21/2023 - Comments only - Tika Simental [facility] - Continue Advair HFA as directed. She will be seeing pulmonology on . As needed albuterol. Problem Code: J44.9; Problem Code Type: ICD-10; JESSIKA GONSALVES RN null, [facility] 4 09:05:27 Counseling Completed 202202/20/2023 01/21/2023 - Comments only - Tika Simental [facility] - Now established on my panel at [facility]. We will follow-up in 3 months to check in on chronic conditions. Problem Code: Z71.89; Problem Code Type: ICD-10; Not Available [facility] 3 05:31:35 Allergic rhinitis Active 202204/21/2023 - Comments only - Tika Simental [facility] - Continue Flonase as directed. Problem Code: J30.9; Problem Code Type: ICD-10; JESSIKA GONSALVES RN null, [facility] 4 09:05:15 Seasonal allergic rhinitis Active 202201/21/2023 - Comments only - Tika Simental [facility] - Okay to continue Naima as long as blood pressure home readings on systolic side not above 140. Problem Code: J30.2; Problem Code Type: ICD-10; JESSIKA GONSALVES RN null, [facility] 4 09:05:37 Low back pain Completed 202206/14/2023 Problem Code: M54.50; Problem Code Type: ICD-10; [address], [place], [address] , [facility] 4 21:21:52 Cough Active 2022 Problem Code: R05.8; Problem Code Type: ICD-10; [address]UM [address], [place], [address] , [facility] 4 10:57:18 Acute upper respiratory infection Completed 202206/14/2023 Problem Code: J06.9; Problem Code Type: ICD-10; Not Available [facility] 3 05:31:35 Trigger thumb of left hand Completed 201904/14/2020 Problem Code: M65.312; Problem Code Type: ICD-10; Not Available [facility] 3 05:31:36 Screening for malignant neoplasm of skin Completed 202205/25/2023 Problem Code: Z12.83; Problem Code Type: ICD-10; Not Available [facility] 3 05:31:36 Herpesviral vesicular dermatitis Completed 201904/21/2023 Problem Code: B00.1; Problem Code Type: ICD-10; Not Available [facility] 3 05:31:36 Mild intermittent asthma Completed 202204/21/2023 Problem Code: J45.20; Problem Code Type: ICD-10; Not Available [facility] 3 05:31:36 Fatigue Completed 202204/21/2023 Problem Code: R53.83; Problem Code Type: ICD-10; Not Available [facility] 3 05:31:36 Trigger finger of right hand Completed 201904/14/2020 Problem Code: M65.341; Problem Code Type: ICD-10; Not Available [facility] 3 05:31:36 Disorder of skin and/or subcutaneous tissue Completed 201104/14/2020 Problem Code: L98.9; Problem Code Type: ICD-10; Not Available [facility] 3 05:31:36 Adult health examination Completed 201904/21/2023 Problem Code: Z00.00; Problem Code Type: ICD-10; Not Available [facility] 3 05:31:37 Increased frequency of urination Completed 202205/25/2023 Problem Code: R35.0; Problem Code Type: ICD-10; [address], [place], [address] , [facility]. 4 14:29:18 Acute upper respiratory infection Completed 202208/15/2023 Problem Code: J06.9; Problem Code Type: ICD-10; Not Available [facility] 4 05:34:27 Actinic keratosis Active [address], [facility] [address] , [facility] 4 13:09:36 Bronchiectasi s Active 2023 GEETA GONZALES, [facility] 4 11:33:56 Right flank pain Active [address], [facility] [address] , [facility] 4 14:26:48 Left flank pain Active [address], [address] 4 14:28:46 Increased frequency of urination Active 2023 Problem Code: R35.0; Problem Code Type: ICD-10; ANUM [address] Dr, [facility] [address] , [facility] 4 14:29:18 Flank pain Active [address], [place], [address] , [facility] 4 15:53:53 Hydronephrosi s Active [address], [facility] [address] , [facility] 4 14:47:44 Thoracic back pain Active [address], [facility] [address] , [facility] 4 21:21:15 Low back pain Active 2023 Problem Code: M54.50; Problem Code Type: ICD-10; [address], [place], [address] , [facility] 4 21:21:52 Problem Notes None recorded. Procedures Surgical History Date Name Laterality Status Provider Name and Address Organization Details Recorded Time 4 Cerumen Removal completed TUSHAR Zurita, [facility] 11/07/2023 10:59:58 Imaging Results None recorded. Procedure Notes None recorded. Medical Equipment None Reported. Allergies Allergen ID Allergen Name Allergen Category Reaction Reaction Severity Criticality Documentation Date Start Date Code Code System Note Provider Name and Address Organization Details Recorded Time 14531 methadone hydrochlo ride medicatio n headache Not available Not available 08/08/20232019 65646 7 RxNorm TUSHAR LAO, [facility] 4 10:34:58 53563 morphine sulfate medicatio n nausea vomiting Not available Not available Not available 08/08/20232019 28052 RxNorm TUSHAR LAO, [facility] 4 10:35:05 23298 Augmentin medicatio n diarrhea severe Not available 10/17/2023 81067 2 RxNoTUSHAR Morales, [facility] 4 10:34:52 37687 codeine medicatio n abdominal pain Not available Not available 10/17/2023 2670 RxTUSHAR Solorzano, [facility] 4 10:35:42 Medications Name Sig Start [...] e 50 mcg/actua tion nasal spray,[employer] [place] 1 to 2 spray into both nostrils [...] Smoking Status Never Smoker JESSIKA GONSALVES RN [facility], [place] - [facility] 10/17/2023 10:42:58 Do You Have An [...] And Wanted Help? (For Example, If You [place] Very Nervous, Lonely, Or Blue; Got Sick [...] Details Recorded Time Pneumococcal conjugate PCV20, polysaccharide [id number] conjugate, adjuvant, PF 02/10/2024 completed TIKA SIMENTAL, ANUM [address], [place], [address], [facility] 02/10/2024 18:27:41 Tdap 12/13/2008 completed Not Available [facility] 05:17:32 zoster live 01/13/2012 completed Not Available [facility] 08/08/2023 05:17:32 Td(adult) unspecified formulation 09/17/2019 completed Not Available [facility] 08/08/2023 05:17:32 COVID-19, mRNA, LNP-S, PF, 100 mcg/0.5mL dose or 50 mcg/0.25mL dose 11/24/2020 completed Not Available [facility] 08/08/2023 05:17:32 COVID-19, mRNA, LNP-S, PF, 100 mcg/0.5mL dose or 50 mcg/0.25mL dose 08/10/2021 completed Not Available [facility] 08/08/2023 05:17:32 SARS-COV-2 (COVID-19) vaccine, UNSPECIFIED 10/23/2020 completed Not Available [facility] 08/08/2023 05:17:33 pneumococcal polysaccharide PPV23 06/29/2010 completed Not Available [facility] 2022 05:17:33 influenza, unspecified formulation 10/03/2012 completed Not Available [facility] 08/08/2023 05:17:33 influenza, unspecified formulation 10/15/2017 completed Not Available [facility] 08/08/2023 05:17:33 influenza, unspecified formulation 05/30/2009 completed Not Available [facility] 08/08/2023 05:17:33 influenza, unspecified formulation 06/19/2016 completed Not Available [facility] 08/08/2023 05:17:33 influenza, unspecified formulation 06/29/2010 completed Not Available [facility] 08/08/2023 05:17:33 influenza, unspecified formulation 06/29/2015 completed Not Available [facility] 08/08/2023 05:17:33 influenza, unspecified formulation 07/04/2020 completed Not Available [facility] 08/08/2023 05:17:33 influenza, unspecified formulation 07/19/2013 completed Not Available [facility] 08/08/2023 05:17:33 influenza, unspecified formulation 08/08/2019 completed Not Available [facility] 08/08/2023 05:17:33 influenza, unspecified formulation 08/12/2014 completed Not Available [facility] 08/08/2023 05:17:34 influenza, unspecified formulation 08/16/2006 completed Not Available [facility] 08/08/2023 05:17:34 influenza, unspecified formulation 07/13/2023 completed Not Available [facility] 10/10/2023 05:30:42 COVID-19, mRNA, LNP-S, PF, 100 mcg/0.5mL dose or 50 mcg/0.25mL dose 08/26/2023 completed TUSHAR LAO, [facility] 10/17/2023 10:52:52 Pneumococcal conjugate PCV 13 01/27/2015 completed TUSHAR LAO, [facility] 02/10/2024 09:10:52 Past Encounters Encounter ID Performer Location Encounter Start Date Encounter Closed Date Diagnosis/Indication Diagnosis SNOMED-CT Code [id number] ANUM GARRETT [facility] [place] [address] 02/10/2024 10:49:03 02/10/2024 12:31:07 Adult health examination [id number] Screening mammography 24 316699 Screening for osteoporosis 035568801 Screening for malignant neoplasm of colon 692498645 Administra tion of pneumococcal vaccine 27039560 [id number] ANUM GARRETT [facility] [place] [address] 02/13/2024 08:42:25 02/13/2024 09:30:11 Screening for malignant neoplasm of colon 257319075 Health Concerns Section Related Observation LastModified by Organization Detai ls LastModified Time None Recorded Concern Status LastModified by Organization Details LastModified Time None Recorded Payers Encounter Date Sequence Insurance Name Policy Number Policy Keller Covered Member ID Keller Member ID Guarantor Name 02/13/2024 1 [employer] (MEDICARE REPLACEMENT HMO) Heike Ramires [id number] Heike Ramires OBGyn Episode No OBEpisode recorded.
--- OUTSIDE RECORDS SUMMARY | 2024-04-23 12:12 | XMS_ITS | Data Portability ---
Author Organization [facility] Address [place] [address] Care Team Providers Care Golf Course Assistant Name Role Phone TIKA SIMENTAL Primary Care Provider [phone] ANIYA [facility] OFFICE OTHER [facility] PULMONOLOG[facility] Tissue Technologist [facility] CARDIOLOGY Director Supplier Quality [facility] Divorce Mediator Assessment Encounter Date Assessment Date Assessment LastModified [...] screenings consistent with USPSTF and ACIP guidelines Not available 02/10/2024 11:28:16 Plan of Treatment Reminders Order Date Submit Date Provider Last Modified By Organization Details Last Modified Time Details Appointments Nurse Visit 20 2023 09:10A M [facility] Nursing Staff Not available Not available Not available Follow Up 2023 02:00Emma SIMENTAL Not available Not available Not available Lab fecal occult blood, immunoas say, stool 2023 024 [email or web address] [facility], [address], [place], [address], 02/13/2024 09:54:23 culture, urine + sensitiv ity 2023 024 [facility] (Registration ), [address] [place] [address] , [place], [address], 02/27/2024 11:59:48 urinalys is, dipstick 2023 024 [facility], [address], [place], [address], 02/21/2024 09:19:23 vitamin D, 25-hydro xy, total, serum 2023 024 ATHENAFAX [facility] (Registration ), [address] [place] [address] , [place], [address], 04/23/2024 09:15:29 Referral None recorded . Procedures None recorded . Surgeries None recorded . Imaging MAMMO, screenin g, digital, bilatera l - due in July 20242023 024 [email or web address] [facility], [address], [place], [address], 04/23/2024 08:34:43 DEXA 2023 024 SILVANA [facility], [address], [place], [address], 04/19/2024 12:20:57 CT, abdomen + pelvis, w/o contrast 2023 024 [email or web address] [facility], [address], [place], [address], 02/27/2024 14:57:41 Medication Orders None recorded . Patient TargetsNo targets recorded. Patient Instructions Encounter Date Encounter Id Patient Instructions Last Modified By Organization Details Last Modified Time 02/10/2024 [id number] Discussed and explained advance directives such as standard forms to the - has advanced directives . In chart but last completed in 2008. She will review them with her son and perhaps update them and provide office copy if she would like updated advanced directives.. 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 Face to face discussion lasted for a duration of __5_ minutes. [email or web address] Not available 02/10/2024 18:32:39 02/20/2024 [id number] nice to see you today take tylenol 2 of the 500mg capsules up to 3 times per day heat off and on if symptoms change, call office we will call you about dexa scan scheduling we will call you about CT scan scheduling for abdomen/pelvis to look at kidneys and bladder Not available 02/20/2024 14:40:43 Reason for Referral Urologist Referral for [place] nephrosis Pt, 79-F, came to office of [...] and repeat UA, to be performed at [facility] and am requesting prompt urology consult to determine cause of mild hydronephrosis. 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 Referring Physician: Samuel Cotto, Family Medicine, Encounter Date: 03/08/2024 Results Created Date Observation Date Name Description Value Unit Range Abnormal Flag LastModifiedBy Organization Detail LastModifiedTime 02/13/2002/13/2024 fecal occul t blood , immun oassa y, stool iFOB negati ve Not Available [facility] [address], [place], [address], 02/13/2024 08:58:08 02/20/20 24 02/21/2024 URINE CULTU RE urine culture Not Available [address] [place], [address] 02/21/2024 07:25:18 02/20/20 24 02/22/2024 URINE CULTU RE urine culture Not Available [address] [place], [address] 02/22/2024 08:02:41 02/20/20 24 02/22/2024 URINE CULTU RE urine culture colon ies/m L Not Available [address] [place], [address] 02/22/2024 08:02:41 02/20/20 24 02/20/2024 urina lysis , dipst ick Leukocytes Negati ve Not Available [facility] [address], [place], [address], 02/20/2024 14:26:56 02/20/20 24 02/20/2024 urina lysis , dipst ick Nitrite negati ve Not Available [facility] [address], [place], [address], 02/20/2024 14:26:56 02/20/20 24 02/20/2024 urina lysis , dipst ick Urobilinogen .2 Not Available [facility] [address], [place], [address], 02/20/2024 14:26:56 02/20/20 24 02/20/2024 urina lysis , dipst ick Protein Trace Not Available [facility] [address], [place], [address], 02/20/2024 14:26:56 02/20/20 24 02/20/2024 urina lysis , dipst ick pH 5.0 Not Available [facility] [address], [place], [address], 02/20/2024 14:26:56 02/20/20 24 02/20/2024 urina lysis , dipst ick Blood Negati ve Not Available [facility] [address], [place], [address], 02/20/2024 14:26:56 02/20/20 24 02/20/2024 urina lysis , dipst ick Specific [place] 1.030 Not Available [facility] [address], [place], [address], 02/20/2024 14:26:56 02/20/20 24 02/20/2024 urina lysis , dipst ick Ketone Negati ve Not Available [facility] [address], [place], [address], 02/20/2024 14:26:56 02/20/20 24 02/20/2024 urina lysis , dipst ick Bilirubin Negati ve Not Available [facility] [address], [place], [address], 02/20/2024 14:26:56 02/20/20 24 02/20/2024 urina lysis , dipst ick Glucose Negati ve Not Available [facility] [address], [place], [address], 02/20/2024 14:26:56 02/20/20 24 02/20/2024 urina lysis , dipst ick Appearance Slight ly Cloudy Not Available [facility] [address], [place], [address], 02/20/2024 14:26:56 02/20/20 24 02/20/2024 urina lysis , dipst ick Color Yellow Not Available [facility] [address], [place], [address], 02/20/2024 14:26:56 03/04/20 24 03/04/2024 URINA LYSIS color Yellow yellow Not Available [address] [facility] [place], [address] 03/04/2024 16:18:32 03/04/20 24 03/04/2024 URINA LYSIS clarity Clear clear Not Available [address] [place] [facility] [place], [address] 03/04/2024 16:18:32 03/04/20 24 03/04/2024 URINA LYSIS specific gravity 1.020 1.005- 1.025 normal Not Available [address] [place], [address] 03/04/2024 16:18:32 03/04/20 24 03/04/2024 URINA LYSIS pH 7.0 5-8 normal Not Available [address], [address] 03/04/2024 16:18:32 03/04/20 24 03/04/2024 URINA LYSIS leukocyte esterase Negati ve negati ve Not Available [address] [place], [address] 03/04/2024 16:18:32 03/04/20 24 03/04/2024 URINA LYSIS nitrite Negati ve negati ve Not Available [address] [place], [address] 03/04/2024 16:18:32 03/04/20 24 03/04/2024 URINA LYSIS protein Negati ve mg/dL neg-tr ashish Not Available [address] [place], [address] 03/04/2024 16:18:32 03/04/20 24 03/04/2024 URINA LYSIS glucose Negati ve mg/dL negati ve Not Available [address] [place], [address] 03/04/2024 16:18:32 03/04/20 24 03/04/2024 URINA LYSIS ketones Negati ve mg/dL negati ve Not Available [address] [place], [address] 03/04/2024 16:18:32 03/04/20 24 03/04/2024 URINA LYSIS urobilinogen 0.2 mg/dL up to 0.2 Not Available [address] [place], [address] 03/04/2024 16:18:32 03/04/20 24 03/04/2024 URINA LYSIS bilirubin Negati ve negati ve Not Available [address] [place], [address] 03/04/2024 16:18:32 03/04/20 24 03/04/2024 URINA LYSIS blood Negati ve negati ve Not Available [address] [place], [address] 03/04/2024 16:18:32 03/04/20 24 03/04/2024 COMPL ETE BLOOD COUNT W/DIF F WBC 5.52 10_3/ uL 4.4-10 .8 normal Not Available [address] [place], [address] 03/04/2024 16:19:33 03/04/20 24 03/04/2024 COMPL ETE BLOOD COUNT W/DIF F RBC 4.00 10_6/ uL 3.93-5 .22 normal Not Available [address] [place], [address] 03/04/2024 16:19:33 03/04/20 24 03/04/2024 COMPL ETE BLOOD COUNT W/DIF F HGB 11.4 g/dL 11.2-1 5.7 normal Not Available [address] [place], [address] 03/04/2024 16:19:33 03/04/20 24 03/04/2024 COMPL ETE BLOOD COUNT W/DIF F HCT 36.0 % 36.0-4 6.0 normal Not Available [address] [place], [address] 03/04/2024 16:19:33 03/04/20 24 03/04/2024 COMPL ETE BLOOD COUNT W/DIF F MCV 90 fL 80-95 normal Not Available [address] [place], [address] 03/04/2024 16:19:33 03/04/20 24 03/04/2024 COMPL ETE BLOOD COUNT W/DIF F MCH 28.5 pg 27.0-3 3.0 normal Not Available [address] [place], [address] 03/04/2024 16:19:33 03/04/20 24 03/04/2024 COMPL ETE BLOOD COUNT W/DIF F MCHC 31.7 % 32.0-3 6.0 low Not Available [address] [place], [address] 03/04/2024 16:19:33 03/04/20 24 03/04/2024 COMPL ETE BLOOD COUNT W/DIF F RDW 13.3 % 11.7-1 4.6 normal Not Available [address] [place], [address] 03/04/2024 16:19:33 03/04/20 24 03/04/2024 COMPL ETE BLOOD COUNT W/DIF F platelet count 207 10_3/ uL 130-40 0 normal Not Available [address] [place], [address] 03/04/2024 16:19:33 03/04/20 24 03/04/2024 COMPL ETE BLOOD COUNT W/DIF F MPV 9.4 fL 8.0-11 .0 normal Not Available [address] [place], [address] 03/04/2024 16:19:33 03/04/20 24 03/04/2024 COMPL ETE BLOOD COUNT W/DIF F neutrophils % 58.0 % Not Available [address] [place], [address] 03/04/2024 16:19:33 03/04/20 24 03/04/2024 COMPL ETE BLOOD COUNT W/DIF F lymphocytes % 22.1 % Not Available [address] [place], [address] 03/04/2024 16:19:33 03/04/20 24 03/04/2024 COMPL ETE BLOOD COUNT W/DIF F monocytes % 9.2 % Not Available [address] [place], [address] 03/04/2024 16:19:33 03/04/20 24 03/04/2024 COMPL ETE BLOOD COUNT W/DIF F eosinophils % 9.6 % Not Available [address] [place], [address] 03/04/2024 16:19:33 03/04/20 24 03/04/2024 COMPL ETE BLOOD COUNT W/DIF F basophils % 0.9 % Not Available [address] [place], [address] 03/04/2024 16:19:33 03/04/20 24 03/04/2024 COMPL ETE BLOOD COUNT W/DIF F immature grans % 0.2 % Not Available [address] [place], [address] 03/04/2024 16:19:33 03/04/20 24 03/04/2024 COMPL ETE BLOOD COUNT W/DIF F nucleated RBC 0.0 % 0.0-0. 3 normal Not Available [address] [place], [address] 03/04/2024 16:19:33 03/04/20 24 03/04/2024 COMPL ETE BLOOD COUNT W/DIF F absolute neutrophil count 3.20 10_3/ uL 1.2-6. 7 normal Not Available [address] [place], [address] 03/04/2024 16:19:33 03/04/20 24 03/04/2024 COMPL ETE BLOOD COUNT W/DIF F absolute lymphocyte count 1.22 10_3/ uL 1.2-3. 4 normal Not Available [address] [place], [address] 03/04/2024 16:19:33 03/04/20 24 03/04/2024 COMPL ETE BLOOD COUNT W/DIF F absolute monocyte count 0.51 10_3/ uL 0.1-0. 8 normal Not Available [address] [place], [address] 03/04/2024 16:19:33 03/04/20 24 03/04/2024 COMPL ETE BLOOD COUNT W/DIF F absolute eosinophil count 0.53 10_3/ uL 0.0-0. 7 normal Not Available [address] [place], [address] 03/04/2024 16:19:33 03/04/20 24 03/04/2024 COMPL ETE BLOOD COUNT W/DIF F absolute basophil count 0.05 10_3/ uL 0.0-0. 2 normal Not Available [address] [place], [address] 03/04/2024 16:19:33 03/04/20 24 03/04/2024 ESR ESR 8 mm/HR 0-30 normal Not Available [address] [place], [address] 03/04/2024 16:20:33 03/04/20 24 03/04/2024 COMPR EHENS ARTUR METAB OLIC PANEL calcium 8.9 mg/dL 8.5-10 .1 normal Not Available [address] [place], [address] 03/04/2024 17:07:41 03/04/20 24 03/04/2024 COMPR EHENS ARTUR METAB OLIC PANEL glucose 97 mg/dL 74-106 normal Not Available [address], [address] 03/04/2024 17:07:41 03/04/20 24 03/04/2024 COMPR EHENS ARTUR METAB OLIC PANEL BUN 17 mg/dL 7-18 normal Not Available [address], [address] 03/04/2024 17:07:41 03/04/20 24 03/04/2024 COMPR EHENS ARTUR METAB OLIC PANEL creatinine 1.0 mg/dL 0.55-1 .02 normal Not Available [address] [place], [address] 03/04/2024 17:07:41 03/04/20 24 03/04/2024 COMPR EHENS ARTUR METAB OLIC PANEL estimated GFR 57.31 mL/min /1.73m 2 Not Available [address] [place], [address] 03/04/2024 17:07:41 03/04/20 24 03/04/2024 COMPR EHENS ARTUR METAB OLIC PANEL total protein 6.6 g/dL 6.4-8. 2 normal Not Available [address] [place], [address] 03/04/2024 17:07:41 03/04/20 24 03/04/2024 COMPR EHENS ARTUR METAB OLIC PANEL albumin 3.5 g/dL 3.4-5. 0 normal Not Available [address] [place], [address] 03/04/2024 17:07:41 03/04/20 24 03/04/2024 COMPR EHENS ARTUR METAB OLIC PANEL bilirubin, total 0.4 mg/dL 0.2-1. 0 normal Not Available [address] [place], [address] 03/04/2024 17:07:41 03/04/20 24 03/04/2024 COMPR EHENS ARTUR METAB OLIC PANEL alk phos 96 U/L 46-116 normal Not Available [address], [address] 03/04/2024 17:07:41 03/04/20 24 03/04/2024 COMPR EHENS ARTUR METAB OLIC PANEL sodium 138 mmol/ L 136-14 5 normal Not Available [address] [place], [address] 03/04/2024 17:07:41 03/04/20 24 03/04/2024 COMPR EHENS ARTUR METAB OLIC PANEL potassium 3.6 mmol/ L 3.5-5. 1 normal Not Available [address] [place], [address] 03/04/2024 17:07:41 03/04/20 24 03/04/2024 COMPR EHENS ARTUR METAB OLIC PANEL chloride 105 mmol/ L 98-107 normal Not Available [address] [place], [address] 03/04/2024 17:07:41 03/04/20 24 03/04/2024 COMPR EHENS ARTUR METAB OLIC PANEL CO2 28.1 mmol/ L 21.0-3 2.0 normal Not Available [address] [place], [address] 03/04/2024 17:07:41 03/04/20 24 03/04/2024 COMPR EHENS ARTUR METAB OLIC PANEL anion gap 4.9 mmol/ L 3-11 normal Not Available [address] [place], [address] 03/04/2024 17:07:41 03/04/20 24 03/04/2024 COMPR EHENS ARTUR METAB OLIC PANEL AST 22 U/L 15-37 normal Not Available [address], [address] 03/04/2024 17:07:41 03/04/20 24 03/04/2024 COMPR EHENS ARTUR METAB OLIC PANEL ALT 30 U/L 14-59 normal Not Available Tiffanie neville [address] [place], [address] 03/04/2024 17:07:41 03/04/20 24 03/05/2024 URINE CULTU RE urine culture Not Available [address] [place], [address] 03/05/2024 08:00:00 03/04/20 24 03/06/2024 URINE CULTU RE urine culture Not Available [address] [place], [address] 03/06/2024 07:48:05 10/07/19 24 09/30/2023 elect jacques biswas am EKG RAYSA Mathis NAME: Jessica Ramires UNIT #: [id number] ORDERI NG PROVID ER: Maggie on,Sterling puente SPAR CAP BEVELER ACCOUN T #: [id number] PRIMAR Y CARE PROVID ER: REINA ON,MALCOM DOUGLASS DATE/T KENRICK OF SER VICE: 09 : 1944 PERFOR LALY LOCATI ON: ER ------ ------ --- APPROV ED REPORT ------ ------ -- Exam: Restin g ECG Reason for Exam: SOB Raysa mathis Locati on: E HR:72 bpm ECG Measur ements Heart Rate 72 AXIS MO 139 P 0 QRSd 135 QRS -12 QT 435 T 59 QTc 476 Conclu yogi Sinus rhythm ...nor mal P axis, V-rate 60- 99 Left bundle branch block. ..QRSd >120, broad/ notche d R sinus rhythm , LBBB unchan ged from 11/21 ------ ------ ------ ------ ------ ------ ------ ------ ------ ------ ------ ------ ------ ------ ------ ------ ---- ------ - E-Sign Date: E-Sign Time: 1831 ------ ------ --- ADDEND UM APPROV ED REPORT ------ ------ -- Exam: Restin g ECG Reason for Exam: SOB Patien t Locati on: E HR:72 bpm ECG Measur ements Heart Rate 72 AXIS MO 139 P 0 QRSd 135 QRS -12 QT 435 T 59 QTc 476 Conclu yogi Sinus rhythm ...nor mal P axis, V-rate 60- 99 Left bundle branch block. ..QRSd >120, broad/ notche d R sinus rhythm , LBBB unchan ged from 11/21 I have review ed and I agree with the emerge ncy room physic júnior's ECG interp retati on. Electr onical ly signed by: [id number] Cosign ed by: [email or web address] [facility] [address], [place], [address] 10/17/2023 10:23:55 10/07/19 24 09/30/2023 rhyth m EKG, 1-3 leads No observ ation record ed. Not Available 10/08/2023 10:36:36 03/03/20 24 03/02/2024 CT imagi ng repor t Raysa t Name: Jessica Ramires Unit #: [id number] Loc: DI Orderi ng Provid er: Tika Simental Accoun t #: [id number] Status : REG CLI Primar y [...] facili ty are submit corwin to the [facility] al Radiol ogy Data Regist ry (NRDR) [...] to clinic al indica tion); or iterat artur recons tructi on. 0604-0 029: Total DLP [...] at the addres s above. Thank- you. [email or web address] [facility] [address], [place], [address] 03/05/2024 02:57:43 03/03/20 24 03/02/2024 CT imagi ng repor t Patien t Name: Jessica Ramires Unit #: [id number] Loc: DI Orderi ng Provid er: Tika Simental Accoun t #: [id number] Status : REG CLI Primar y [...] to clinic al indica tion); or iterat artur recons tructi on. 603- 029: Total DLP [...] at the addres s above. Thank- you. [email or web address] [address] [facility] [place], [address] 03/05/2024 02:57:44 03/03/20 24 03/02/2024 CT, abdom en + pelvi s, w/o contr ast No observ ation record ed. [email or web address] [facility] (Radiology) [address] [place] [address] [place], [address], 03/05/2024 02:54:35 03/03/20 24 03/02/2024 CT, abdom en + pelvi s, w/o contr ast No observ ation record ed. [email or web address] [facility] (Radiology) [address] [place] [address] [place], [address], 03/05/2024 02:54:35 06/18/20 24 03/16/2024 x-ray imagi ng repor t Patien t Name: Jessica Ramires Unit #: [id number] Loc: DI Orderi ng Provid er: Tika Simental Landry mathis #: [id number] Status : REG CLI Primar y [...] lesion . The verteb ral bodies and battery recharger ior elemen ts are unrema rkable . [...] error, please notify us immedi ately at [phone] and return the origin al report to us at the addres s above. Thank- you. [email or web address] [facility] [address] [place], [address] 03/18/2024 12:21:22 03/16/20 24 03/16/2024 x-ray imagi ng melvin mathis Name: Jessica Ramires Unit #: [id number] Loc: DI Orderi ng Provid er: Tika Simental Accoun t #: [id number] Status : REG CLI Primar y [...] ------ - Dictat ed By: Nica Greenwood [id number] Transc ribed By: William Bland 1655 This is privil eged, confid ential inform [...] the addres s above. Thank- you. [email or web address] [address] [place], [address] 03/18/2024 12:21:23 03/17/20 24 03/16/2024 XR, thora cic spine , 2 view No observ ation record ed. [email or web address] [facility] (Radiology) [address] [place] [address] [place], [address], 03/18/2024 11:59:52 03/17/20 24 03/16/2024 XR, lumbo sacra l spine , compl ete No observ ation record ed. [email or web address] [facility] (Radiology) [address] [place] [address] [place], [address], 03/18/2024 11:59:41 04/19/20 24 04/19/2024 bone densi tomet ry imagi ng rpt Patien t Name: Jessica Ramires Unit #: [id number] Loc: DI Orderi ng Provid er: Tika Simental Accoun t #: [id number] Status : REG CLI Primar y [...] at the addres s above. Thank- you. [email or web address] [address] [place], [address] 04/20/2024 07:22:27 04/19/20 24 04/19/2024 DEXA No observ ation record ed. [facility] (Radiology) [address] [place] [address] [place], [address], 04/22/2024 15:49:34 Result Notes None recorded. Problems Name Status Onset Date Resolution Date Notes Provider Name and Address Organization Details Recorded Time Cardiomyopath y Active 201901/21/2023 - Comments only - Tika Simental SPAR [employer] - Continue to follow-up with Dr. Lawrence at cardiology. She will assess the need for continuation of furosemide 20 mg every other day. Problem Code: I42.9; Problem Code Type: ICD-10; JESSIKA GONSALVES RN [facility], [place] [facility] 4 09:05:23 Acute non-ST segment elevation myocardial infarction Active 2019 Problem Code: I21.4; Problem Code Type: ICD-10; Not Available [facility] 3 05:31:34 Melanocytic nevus Active 2019 Problem Code: D22.9; Problem Code Type: ICD-10; Not Available [facility] 3 05:31:34 Benign neoplasm of ovary Active 2019 Problem Code: D27.9; Problem Code Type: ICD-10; Not Available [facility] 3 05:31:34 Senile osteoporosis Active 2019 Problem Code: M81.0; Problem Code Type: ICD-10; JESSIKA GONSALVES RN [facility], [facility] 4 09:05:41 Trigeminal neuralgia Active 201904/21/2023 - Comments only - Tika Simental [employer]AR [employer] - Continue on inositol 2 tabs twice per day per neurologist saúl flannery from [place]. she is not established with a neurologist up here. Did send in an emergency supply of Tegretol she used in past for exacerbations . IF she needs to use this she will call me and we can refer to neurology. Problem Code: G50.0; Problem Code Type: ICD-10; JESSIKA GONSALVES RN [facility], [facility] 4 09:05:50 Cough Completed 201908/18/2020 07/28/2020 - Comments only - Aurelia Venegas [employer] - with low-grade fever and nasal congestion. [...] Type: ICD-10; ANUM GARRETT [address], [place], [address] , [place] - [facility] 4 10:57:18 Osteoarthriti s Active 202204/21/2023 - Comments only - Tika Simental [employer]AR [employer] - Continue with Voltaren gel topical hands mainly. Tylenol as needed. Problem Code: M19.90; Problem Code Type: ICD-10; JESSIKA GONSALVES RN null, [place] - [facility] 4 09:05:32 Chronic obstructive pulmonary disease Active 202204/21/2023 - Comments only - Tika Simental [employer]AR [employer] - Continue Advair HFA as directed. She will be seeing pulmonology on . As needed albuterol. Problem Code: J44.9; Problem Code Type: ICD-10; JESSIKA GONSALVES RN null, [place] - [facility] 4 09:05:27 Counseling Completed 202202/20/2023 01/21/2023 - Comments only - Tika Simental [employer]AR [employer] BEV[employer]ER - Now established on my panel at [facility]. We will follow-up in 3 months to check in on chronic conditions. Problem Code: Z71.89; Problem Code Type: ICD-10; Not Available [facility] 3 05:31:35 Allergic rhinitis Active 202204/21/2023 - Comments only - Tika Simental SPAR CAP BEVELER - Continue Flonase as directed. Problem Code: J30.9; Problem Code Type: ICD-10; JESSIKA GONSALVES RN null, [place] - [facility] 4 09:05:15 Seasonal allergic rhinitis Active 202201/21/2023 - Comments only - Tika Simental SPAR [employer] BEVELER - Okay to continue Naima as long as blood pressure home readings on systolic side not above 140. Problem Code: J30.2; Problem Code Type: ICD-10; JESSIKA GONSALVES RN [facility], [facility] 4 09:05:37 Low back pain Completed 202206/14/2023 Problem Code: M54.50; Problem Code Type: ICD-10; ANUM GARRETT Dr, [facility] [facility] [address] [facility] 4 21:21:52 Cough Active 2022 Problem Code: R05.8; Problem Code Type: ICD-10; ANUM [address]RE[address], [facility] [address] , [facility] 4 10:57:18 Acute upper respiratory infection Completed 202206/14/2023 Problem Code: J06.9; Problem Code Type: ICD-10; Not Available [facility] 05:31:35 Trigger thumb of left hand Completed 201904/14/2020 Problem Code: M65.312; Problem Code Type: ICD-10; Not Available [facility] 05:31:36 Screening for malignant neoplasm of skin Completed 202205/25/2023 Problem Code: Z12.83; Problem Code Type: ICD-10; Not Available [facility] 3 05:31:36 Herpesviral vesicular dermatitis Completed 201904/21/2023 Problem Code: B00.1; Problem Code Type: ICD-10; Not Available [facility] 3 05:31:36 Mild intermittent asthma Completed 202204/21/2023 Problem Code: J45.20; Problem Code Type: ICD-10; Not Available [facility] 3 05:31:36 Fatigue Completed 202204/21/2023 Problem Code: R53.83; Problem Code Type: ICD-10; Not Available [facility] 3 05:31:36 Trigger finger of right hand Completed 201904/14/2020 Problem Code: M65.341; Problem Code Type: ICD-10; Not Available [facility] 3 05:31:36 Disorder of skin and/or subcutaneous tissue Completed 201104/14/2020 Problem Code: L98.9; Problem Code Type: ICD-10; Not Available [facility] 3 05:31:36 Adult health examination Completed 201904/21/2023 Problem Code: Z00.00; Problem Code Type: ICD-10; Not Available [facility] 3 05:31:37 Increased frequency of urination Completed 202205/25/2023 Problem Code: R35.0; Problem Code Type: ICD-10; ANUM GARRETT Dr, [facility] [id number] 4 14:29:18 Acute upper respiratory infection Completed 202208/15/2023 Problem Code: J06.9; Problem Code Type: ICD-10; Not Available [facility] 4 05:34:27 Actinic keratosis Active [address], [facility] [address] [place] [address] 4 13:09:36 Bronchiectasi s Active 2023 GEETA GONZALES, [facility] 4 11:33:56 Right flank pain Active [address], [facility] [id number] [place] [address] 4 14:26:48 Left flank pain Active [address], [facility] [address] [place] [address] 4 14:28:46 Increased frequency of urination Active 2023 Problem Code: R35.0; Problem Code Type: ICD-10; ANUM GARRETT Dr, [facility] [address] , [facility] 4 14:29:18 Flank pain Active [address], [facility] [address] , [facility] 4 15:53:53 Hydronephrosi s Active [address], [facility] [address] , [facility] 4 14:47:44 Thoracic back pain Active [address], [facility] [address] , [facility] 4 21:21:15 Low back pain Active 2023 Problem Code: M54.50; Problem Code Type: ICD-10; ANUM GARRETT Dr, [facility] [address] , [facility] 21:21:52 Problem Notes None recorded. Procedures Surgical History Date Name Laterality Status Provider Name and Address Organization Details Recorded Time Cerumen Removal completed Waleska Rodrigues RN [facility], [facility] 11/07/2023 10:59:58 Imaging Results Imaging Date Name Status LastModified by Organization Details LastModified Time 09/30/2023 electrocardiogram completed [address] [place], [address] 10/17/2023 10:23:55 09/30/2023 rhythm EKG, 1-3 leads completed Information not available 10/08/2023 10:36:36 03/02/2024 CT imaging report completed [email or web address] [address] [place], [address] 03/05/2024 02:57:43 03/02/2024 CT imaging report completed [address] [place], [address] 03/05/2024 02:57:44 03/02/2024 CT, abdomen + pelvis, w/o contrast completed [email or web address] [place] [address] (Radiology) [address] [place] [address] [place], [address], 03/05/2024 02:54:35 03/02/2024 CT, abdomen + pelvis, w/o contrast completed [email or web address] [place] [address] (Radiology) [address] [place] [address] [place], [address], 03/05/2024 02:54:35 03/16/2024 x-ray imaging report completed [address] [place] [place], [address] 03/18/2024 12:21:22 03/16/2024 x-ray imaging report completed [address] [place] [place], [address] 03/18/2024 12:21:23 03/16/2024 XR, thoracic spine, 2 view completed [email or web address] [place] [address] (Radiology) [address] [place] [address] [place], [address], 03/18/2024 11:59:52 03/16/2024 XR, lumbosacral spine, complete completed [email or web address] [place] [address] (Radiology) [address] [place] [address] [place], [address], 03/18/2024 11:59:41 04/19/2024 bone densitometry imaging rpt completed [email or web address] [place] [address] [place], [address] 04/20/2024 07:22:27 04/19/2024 DEXA active [facility] (Radiology) [address] [place] [address] [place], [address], 04/22/2024 15:49:34 Procedure Notes None recorded. Medical Equipment None Reported. Allergies Allergen ID Allergen Name Allergen Category Reaction Reaction Severity Criticality Documentation Date Start Date Code Code System Note Provider Name and Address Organization Details Recorded Time 26755 methadone hydrochlo ride medicatio n headache Not available Not available 08/08/20232019 72812 7 RxNorm TUSHAR LAO, [facility] 4 10:34:58 29814 morphine sulfate medicatio n nausea vomiting Not available Not available Not available 08/08/20232019 94453 RxNorm TUSHAR LAO, [facility] 4 10:35:05 [address] Augmentin medicatio n diarrhea severe Not available 10/17/2023 38684 2 RxNorm TUSHAR LAO, [facility] 4 10:34:52 71856 codeine medicatio n abdominal pain Not available Not available 10/17/2023 2670 RxNorm TUSHAR LAO, [facility] 4 10:35:42 Medications Name Sig Start [...] e 50 mcg/actua tion nasal spray,[employer] 1 to 2 spray into both nostrils [...] Last Updated DateTime 147.32 cm 24.6 kg/m2 46274.4 6 g 98.4 [degF] 60 /min 16 /min 138 mm[Hg] 60 mm[Hg] JESSIKA GONSALVES RN [facility] 4 11:14:24 Date Recorded Body height Heart rate Respiratory rate Systolic blood pressure Diastolic blood pressure Provider Name and Address Organization Details Last Updated DateTime 02/20/2024 147.32 cm 62 /min 14 /min 118 mm[Hg] 64 mm[Hg] JESSIKA GONSALVES RN [facility] 14:00:36 Social History Question Answer Notes LastModified by Organizat ion Details LastModified Time Tobacco Smoking Status Never Smoker JESSIKA GONSALVES RN [facility], [facility] 10/17/2023 10:42:58 Do You Have An [...] And Wanted Help? (For Example, If You [place] Very Nervous, Lonely, Or Blue; Got Sick [...] Details Recorded Time Pneumococcal conjugate PCV20, polysaccharide ATO333 conjugate, adjuvant, PF 02/10/[address], [place], [address], [facility] 02/10/2024 18:27:41 Tdap 12/13/2008 completed Not Available [facility] 05:17:32 zoster live 01/13/2012 completed Not Available [facility] 08/08/2023 05:17:32 Td(adult) unspecified formulation 09/17/2019 completed Not Available [facility] 08/08/2023 05:17:32 COVID-19, mRNA, LNP-S, PF, 100 mcg/0.5mL dose or 50 mcg/0.25mL dose 11/24/2020 completed Not Available [facility] 08/08/2023 05:17:32 COVID-19, mRNA, LNP-S, PF, 100 mcg/0.5mL dose or 50 mcg/0.25mL dose 08/10/2021 completed Not Available [facility] 08/08/2023 05:17:32 SARS-COV-2 (COVID-19) vaccine, UNSPECIFIED 10/23/2020 completed Not Available [facility] 08/08/2023 05:17:33 pneumococcal polysaccharide PPV23 06/29/2010 completed Not Available [facility] 2022 05:17:33 influenza, unspecified formulation 10/03/2012 completed Not Available [facility] 08/08/2023 05:17:33 influenza, unspecified formulation 10/15/2017 completed Not Available [facility] 08/08/2023 05:17:33 influenza, unspecified formulation 05/30/2009 completed Not Available [facility] 08/08/2023 05:17:33 influenza, unspecified formulation 06/19/2016 completed Not Available [facility] 08/08/2023 05:17:33 influenza, unspecified formulation 06/29/2010 completed Not Available [facility] 08/08/2023 05:17:33 influenza, unspecified formulation 06/29/2015 completed Not Available [facility] 08/08/2023 05:17:33 influenza, unspecified formulation 07/04/2020 completed Not Available [facility] 08/08/2023 05:17:33 influenza, unspecified formulation 07/19/2013 completed Not Available [facility] 08/08/2023 05:17:33 influenza, unspecified formulation 08/08/2019 completed Not Available [facility] 08/08/2023 05:17:33 influenza, unspecified formulation 08/12/2014 completed Not Available [facility] 08/08/2023 05:17:34 influenza, unspecified formulation 08/16/2006 completed Not Available [facility] 08/08/2023 05:17:34 influenza, unspecified formulation 07/13/2023 completed Not Available [facility] 10/10/2023 05:30:42 COVID-19, mRNA, LNP-S, PF, 100 mcg/0.5mL dose or 50 mcg/0.25mL dose 08/26/2023 completed TUSHAR LAO, [facility] 10/17/2023 10:52:52 Pneumococcal conjugate PCV 13 01/27/2015 completed TUSHAR LAO, [facility] 02/10/2024 09:10:52 Past Encounters Encounter ID Performer Location Encounter Start Date Encounter Closed Date Diagnosis/Indication Diagnosis SNOMED-CT Code [id number] FLORESITA ADKINS, JUNIOR MEDIA BUYER [facility] [place] [address] 08/29/2023 13:37:36 08/29/2023 14:23:37 Rib pain [id number] TIKA SIMENTAL [facility] [address] [place] [address] 10/17/2023 10:17:05 10/17/2023 12:27:37 Actinic keratosis 612697217 Chronic ob structive pulmonary disease 23021293 Cardiomyopathy 34011316 [id number] Waleska Rodrigues RN [facility] [address] [place] [address] 11/07/2023 09:59:55 11/07/2023 11:01:45 [id number] TIKA SIMENTAL [facility] [address] [place] [address] 02/10/2024 10:49:03 02/10/2024 12:31:07 Adult health examination 182121497 Screening mammography 24 595697 Screening for osteoporosis 184336339 Screening for malignant neoplasm of colon 215986161 Administra tion of pneumococcal vaccine 75089321 [id number] TIKA SIMENTAL [facility] [address] [place] [address] 02/13/2024 08:42:25 02/13/2024 09:30:11 Screening for malignant neoplasm of colon 254477089 [id number] TIKA SIMENTAL [facility] [address] [place] [address] 02/20/2024 13:26:03 02/20/2024 14:43:02 Right flank pain 020549487 Left flank pain 05928934 9 Increased frequency of urination 219609514 [id number] Waleska Rodrigues RN [facility] [address] [place] [address] 04/23/2024 08:46:04 04/23/2024 10:24:48 Senile osteoporosis 34581734 Health Concerns Section Related Observation LastModified by Organization Detai ls LastModified Time None Recorded Concern Status LastModified by Organization Details LastModified Time None Recorded Advance Directives Directive Y: pt states she has one; wi ll verify it is on file at check-out today Payers Encounter Date Sequence Insurance Name Policy Number Policy Keller Covered Member ID Keller Member ID Guarantor Name 11/07/2023 1 [employer] (MEDICARE REPLACEMENT HMO) Heike Ramires [id number] Heike Ramires 02/10/2024 1 [employer] (MEDICARE REPLACEMENT HMO) Heike Ramires [id number] Heike Ramires 02/13/2024 1 [employer] (MEDICARE REPLACEMENT HMO) Heike Ramires [id number] Heike Ramires 02/20/2024 1 [employer] (MEDICARE REPLACEMENT HMO) Heike Ramires [id number] Heike Ramires 04/23/2024 1 [employer] (MEDICARE REPLACEMENT HMO) Heike Ramires [id number] Heike Ramires Notes Date Note Type Note [...] includes cardiology Dr. Lawrence, pulmonology Dr. Macias, [facility]. Chronic conditions and acute concerns not addressed at this visit as it was a preventative health care annual wellness visit. ANUM [address], [place], [address], [facility]. 02/10/2024 18:32:47 02/20/2024 text/html HPI Notes: Jessica craft is [...] known history of kidney stones. ANUM [address], [place], [address], [facility]. 02/25/2024 16:55:04 OBGyn Episode No OBEpisode recorded.
--- OUTSIDE RECORDS SUMMARY | 2024-04-23 12:12 | XMS_ITS | Encounter Summary ---
Author Organization [facility] Address [address] [place] [address] Care Team Providers Care Rhinestone Setter Name Role Phone Unavailable Primary Care Provider Unavailabl e Encounter Details Date Type Department Care Team (Late st Contact Info) Description 05/05/[address] [facility] Pathology & Laboratory Medicine - [facility] [address] [place] [address] Natalya Peralta MD [address] [place] [address] [address] [place], [place] [id number] Encounter for other general examination Social History Tobacco Use Types Packs/Day Years Used Date Smoking Tobacco: Never Assessed Sex and Gender Information Value Date Recorded Sex Assigned at Not on file Gender Identity Not on file Sexual Orientation Not on file documented as of this encounter Plan of Treatment Not on file documented as of this encounter Procedures Procedure Name Priority Date/Time Associated Diagnosis Comments DIFFERENTIAL, LAVAGE FLUID Today 05/05/2023 7:48 EDT Encounter for other general examination documented in this encounter Results * DIFFERENTIAL, LAVAGE FLUID (05/05/2023 7:48 EDT) Neutrophils Fluid Relative 78 % 05/06/2023 15:16 EDT [facility] Lymphocytes Fluid Relative 4 % 05/06/2023 15:16 EDT [facility] [place]/Macrophage 12 % 15:16 EDT [facility] Eosinophils Fluid Relative 6 % 05/06/2023 15:16 EDT [facility] Path Review Fluid, other 05/06/2023 15:16 EDT [facility] Fluid 05/05/2023 7:48 EDT 05/05/2023 16:48 EDT Natalya Peralta MD GEN LAB UNIT COLLECT ORDERABLES [facility] [address] [place] [address] documented in this encounter Visit Diagnoses Diagnosis Encounter for other general examination documented in this encounter
--- OUTSIDE RECORDS SUMMARY | 2024-04-23 12:13 | XMS_ITS | Encounter Summary ---
Author Organization [facility] [place] [address] Care Team Providers Care Tub Tender Name Role Phone Henrietta Null MD Primary Care Provider [phone] Reason for Visit * Reason Comments Cough Continue to experien ce issues with excessive coughing since August, trouble breathing, heavy chest when taking a deep breath. Fever this morning(took aspirin), coughing up mucus (green in color) Encounter Details Date Type Department Care Team (Late st Contact Info) Description 11/11/2022 1:00 PM EST Office Visit Internal Medicine at [address] [id number] Marlon Guaman MD [facility] [place] [address] Intermittent asthma with acute exacerbation, unspecified asthma severity Social History Tobacco Use Types Packs/Day Years Used Date Smoking Tobacco: Never Smokeless Tobacco: Never Alcohol Use Standard Drinks/Week Comments No 0 (1 standard drink = 0.6 oz pur e alcohol) Sex and Gender Information Value Date Recorded Sex Assigned at Not on file Gender Identity Not on file Sexual Orientation Not on file documented as of this encounter Last Filed Vital Signs Vital Sign Reading Time Taken Comments Blood Pressure 95/71 11/11/2022 12:58 PM EST Pulse 73 11/11/2022 12:58 PM EST Temperature 36.5 ??C (97.7 ??F) 11/11/2022 12:[address] took aspirin Respiratory Rate 16 11/11/2022 12:58 PM EST Oxygen Saturation 98% 11/11/2022 12:58 PM EST Inhaled Oxygen Concentration - - Weight 52.2 kg (115 lb) 11/11/2022 12:58 PM EST Height 146.1 cm (4' 9.52) 11/11/2022 12:[address] reported Body Mass Index 24.44 11/11/2022 12:58 PM EST documented in this encounter Progress Notes * Marlon Guaman MD - 11/11/2022 1:00 PM EST Subjective: Patient ID: Heike Ramires is a 77 y.o. female. Chief Complaint Patient presents with ??? Cough Continue to experience issues with excessive coughing since August, trouble breathing, heavy chest when taking a deep breath. Fever this morning(took aspirin), coughing up mucus (green in color) 77 y/o F with CAD, osteoporosis, obstructive lung disease Similar issues in early 2021 - seen in office 10/23 with chronic cough which she related to PND, but was not getting better with flonase. She was recommended to trial a night-time antihistamine whichdid not work and called to request a trial of intranasal ipratropium on 11/[address] Pena had mentioned as the next step. She has been taking that since then and finds that her PND and cough are much better. Woke up this morning with temperature over 100F. Took aspirin this morning. Has had a cough since the last part of August. Was seen here in 10/17. Had a steroid burst in mid September which helped for a few days but things got worse again afterwards. Feels sinus congestion; ears stuffy. Has had pneumonia in the past Her symptoms are typically worse in the sarah. Was told that she has asthma. Takes ipratropium inhaler in the morning but then wears off during the day. Then takes OTC medications (Mucinex and Dayquil). Has found a nebulizer effective when she is in the emergency room. Does heat with oil in the winter. Has added humidifiers to her home as well as allergen bed covers/pillow covers due to dust mite allergy. Using flonase BID as well as ipratropium inhaler BID. Also taking lizbeth. Does not remember having been on an inhaled steroid in the past. Objective: BP 95/71 (BP Location (NBP): Left arm, Patient Position: Sitting, BP Cuff Sizes: Adult (25-34 cm)) Pulse 73 Temp 36.5 ??C (97.7 ??F) (Temporal) Comment: took aspirin Resp 16 Ht 146.1 cm (4' 9.52) Comment: reported Wt 52.2 kg (115 lb) SpO2 98% BMI 24.44 kg/m?? Wt Readings from Last 3 Encounters: 11/11/22 52.2 kg (115 lb) 10/17/22 52.6 kg (116 lb) 07/03/22 52.2 kg (115 lb) GEN - well appearing, NAD; speaking in full sentences with frequent cough RESP - cough with all expiration, wheezes in all lung thomas, normal WoB CV - normal rate, regular rhythm EXTR - warm, no edema Assessment and Plan: Heike was seen today for cough. Diagnoses and all orders for this visit: Intermittent asthma with acute exacerbation, unspecified asthma severity Albuterol neb x 1 here. Start steroid burst with zithromax for possible bacterial component with low grade fever this morning. I think she needs LABA/ICS for the winter given her chronic cough despite inhaled steroid, antihistamine. Consider addition of montelukast as well. Will also prescribe nebulizer machine and albuterol neb for outpatient use if ipratropium ineffective. - predniSONE (Deltasone) 20 mg Tablet; Take 2 tablets by mouth daily for 5 days. - azithromycin (Zithromax) 250 mg Tablet; Day 1: Take 2 tablets daily, Day 2 - 5: Take one tablet daily - albuteroL (ACCUNEB) 1.25 mg/3 mL Solution for Nebulization; Take 3 mLs by nebulization every 6 hours as needed for Wheezing. - fluticasone propion-salmeteroL (ADVAIR HFA) 45-21 mcg/actuation HFA Aerosol Inhaler; Inhale 2 puffs into the lungs 2 times daily. documented in this encounter Plan of Treatment Upcoming Encounters Date Type Department Care Team (Late st Contact Info) Description 07/07/2024 11:00 AM EDT Office Visit Cardiology at [address] [place] [address] Lorena Lawrence MD [facility] [place] [address] documented as of this encounter Visit Diagnoses Diagnosis Intermittent asthma with acute exacerbation, unspecified asthma severity documented in this encounter Administered Medications Inactive Administered Medications - up to 3 most recent administrations Medication Order MAR Action Action Date Dose Rate Site albuteroL (Proventil, Ventolin) (2.5 mg/3 mL) (0.083 %) nebulizer solution 2.5 mg 2.5 mg, Nebulization, ONCE, 1 dose, On Fri11/11/22 at 1400, Routine Given 11/11/2022 1:39 PM EST 2.5 mg 20-Other (document in comment section) documented in this encounter Care Teams Tub Tender Relationship Specialty Start Date End Date Henrietta Null MD [facility] [address] [place] [address] PCP - General General Internal Medicine 10/03/2003/31 documented as of this encounter
--- OUTSIDE RECORDS SUMMARY | 2024-04-23 12:13 | XMS_ITS | Encounter Summary ---
Author Organization [facility] [place] [address] Care Team Providers Care Body Painter Name Role Phone Henrietta Null MD Primary Care Provider [phone] Reason for Visit * Reason Comments Follow-up X-rays Encounter Details Date Type Department Care Team (Late st Contact Info) Description 11/05/2021 1:20 PM EST Office Visit Internal Medicine at [address] [phone] Henrietta Null MD [facility] [place] [address] Rib pain on right side; PND (post-nasal drip) Social History Tobacco Use Types Packs/Day Years [...] Sign Reading Time Taken Comments Blood Pressure 136/57 11/05/2021 1:13 PM EST Pulse 64 11/05/2021 1:13 PM EST Temperature - - Respiratory Rate 16 11/05/2021 1:13 PM EST Oxygen Saturation - - Inhaled Oxygen Concentration - - Weight 51.7 kg (114 lb) 11/05/2021 1:13 PM EST Height 147.1 cm (4' 9.91) 11/05/2021 1:13 PM ES T Body Mass Index 23.9 11/05/2021 1:13 PM EST documented in this encounter Progress Notes * Henrietta Null MD - 11/05/2021 1:20 PM EST ESTABLISHED PATIENT ACUTE VISIT Chief Complaint Patient presents with ??? Follow-up X-rays Pt is a 76 y.o. female who presents for acute visit for f/up after recent xrays. She was seen in our office 10/23 with chronic cough which she related to PND, but was not getting better with flonase. She was recommended to trial a night-time antihistamine which did not work and called to request a trial of intranasal ipratropium on 11/[address] Pena had mentioned as the next step. She has been taking that since then and finds that her PND and cough are much better. Additionally, she complained by patient message on 11/01 about R rib pain and that she was worried that she might have a crackledrib. She had heard a pop a couple of weeks ago when leaning over and has had pain on the R side since that time which has not been getting better with ibuprofen. An xray of lungs and R ribs was preformed. There was no obvious fracture, but did suggest some scarring vs atelectasis at the L base. We spoke after the xrays on 11/02 and I recommended she start tylenol 1000 BID for the pain and to f/up here for exam. Today, she remarks that this pain too has improved significantly, and her sleep is much easier. Lost her last month. 60 years. He was quite sick after stents placed last February and very uncomfortable for his last 4 weeks. 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 Current Outpatient Medications on File Prior to Visit Medication Sig Dispense Refill ??? ipratropium (ATROVENT) 21 mcg (0.03 %) [place], Non-Aerosol 2 sprays by Nasal route every 12 hours. 30 mL 12 ??? furosemide (Lasix) 20 mg Tablet Take 1 tablet by mouth daily. 90 tablet 3 ??? metoprolol succinate XL (Toprol-XL) 25 mg Tablet Sustained Release 24 hr take 1 tablet by mouthonce daily 90 tablet 3 ??? UNABLE TO FIND Probiotic Daily 50 billion cell, One daily ??? ipratropium (ATROVENT HFA) 17 mcg/actuation HFA Aerosol Inhaler Inhale 2 puffs into the lungs 2times daily. (Patient taking differently: Inhale into the lungs 2 times daily.) 1 Inhaler 12 ??? carBAMazepine (TEGretol) 200 mg Tablet Take 200 mg by mouth 3 times daily. ??? CALCIUM LACTATE ORAL Take 1 tablet by mouth daily. ??? INOSITOL ORAL Take 2 tablets by mouth 2 times daily. ??? cholecalciferol, Vitamin D3, (VITAMIN D) 1,000 unit Tab tablet Take 1 tablet by mouth daily. No current facility-administered medications on file prior to visit. Patient Active Problem List Diagnosis Code ??? Ovarian fibroma D27.9 ??? Osteoporosis M81.0 ??? Trigeminal neuralgia G50.0 ??? Preventative health care Z00.00 ??? Trigger fingers, left thumb and ring, right ring M65.30 ??? 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 Skin lesion of hand L98.9 ??? Other specified aftercare following surgery Z48.89 ??? Stress-induced cardiomyopathy I51.81 ??? Acute non-ST segment elevation myocardial infarction I21.4 ??? LBBB (left bundle branch block) I44.7 Social History Social History Narrative Lives in [place], with her . 4 children ([facility], [facility], next door). 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 Enjoying cooking, gardening, swimming. No tob No etoh rare caffeine (tea) exercise at work only Father age 88, + cerebral aneurysm, also with AAA Mother age 40 with SLE Colon Cancer - sister Pancreatic Duct cancer? - sister, also with COPD Brother - from trauma, pt relates to etoh Sister - diverticulitis Sister - alzheimer's PHQ-9 QUESTIONNAIRE SCORE ONLY (AMB) 05/26/2015 PHQ - 9 Score (Clinic) 0 (No Depression) Some recent data might be hidden Physical Exam: Vitals: 11/05/21 1313 BP: 136/57 BP Location (NBP): Right arm Patient Position: Sitting BP Cuff Sizes: Large Adult (32-43 cm) Pulse: 64 Resp: 16 Weight: 51.7 kg (114 lb) Height: 147.1 cm (4' 9.91) Wt Readings from Last 3 Encounters: 11/05/21 51.7 kg (114 lb) 10/23/21 51.7 kg (114 lb) 06/01/21 53.1 kg (117 lb) Physical Exam Appears well. Back - no spinal pain, or pain along her ribs. Pulmonary - clear lung thomas B with no crackles, wheezes. Assessment and Plan: Heike was seen today for follow-up . Diagnoses and all orders for this visit: Rib pain on right side - resolving with scheduled tylenol. Normal exam today. Pt to call if any recurrence. PND (post-nasal drip) - pt states that she gets every winter. She will cont the atrovent ns for nowand knows she can taper off as season changes. documented in this encounter Plan of Treatment Upcoming Encounters Date Type Department Care Team (Late st Contact Info) Description 07/07/2024 11:00 AM EDT Office Visit Cardiology at [address] [address] Lorena Lawrence MD [facility] [place] [address] documented as of this encounter Visit Diagnoses Diagnosis Rib pain on right side Chest pain, unspecified PND (post-nasal drip) Postnasal drip documented in this encounter Care Teams Body Painter Relationship Specialty Start Date End Date Henrietta Null MD [facility] [address] [place] [address] PCP - General General Internal Medicine 10/03/2003/31 documented as of this encounter
--- OUTSIDE RECORDS SUMMARY | 2024-04-23 12:13 | XMS_ITS | Encounter Summary ---
Author Organization [facility] Address [address] [place] [address] Care Team Providers Care Exterior Interior Specialist Name Role Phone Unavailable Primary Care Provider Unavailabl e Encounter Details Date Type Department Care Team (Late st Contact Info) Description 05/05/2023 Lab Requisition [facility] Pathology & Laboratory [facility] [address] [place] [address] Outr Resulting Lab, Provider Social History Tobacco Use Types Packs/Day Years Used Date Smoking Tobacco: Never Assessed Sex and Gender Information Value Date Recorded Sex Assigned at Not on file Gender Identity Not on file Sexual Orientation Not on file documented as of this encounter Plan of Treatment Not on file documented as of this encounter Procedures Procedure Name Priority Date/Time Associated Diagnosis Comments AFB CULTURE/SMEAR, OTHER Routine 05/05/2023 7:48 EDT BACTERIAL CULTURE/SMEAR, RESPIRATORY Routine 05/05/2023 7:48 EDT documented in this encounter Results * (ABNORMAL) BACTERIAL CULTURE/SMEAR, RESPIRATORY (05/05/2023 7:48 EDT) Organism ID No Growth 05/07/2023 8:56 EDT [facility] Smear Many Neutrophils Present(A) 05/07/2023 8:56 EDT [facility] Smear No bacteria seen(A) 05/07/2023 8:56 EDT [facility] Wash ENTIRE LUNG / Unknown 05/05/2023 7:48 EDT 05/05/2023 17:11 EDT Provider Outr Resulting Lab MICROBIOLOGY - GENERAL ORDERABLES [facility] [address] [place] [address] * AFB CULTURE/SMEAR, OTHER (05/05/2023 7:48 EDT) Organism ID No acid-fast bacilli isolated VITEK SUSCEPTIBILITY 07/01/2023 10:22 EDT [facility] AFB Smear No Acid Fast Bacilli Seen 07/01/2023 10:22 EDT [facility] Wash LUNG STRUCTURE / Unknown 05/05/2023 7:48 EDT 05/05/2023 17:11 EDT Provider Outr Resulting Lab MICROBIOLOGY - GENERAL ORDERABLES [facility] [address] [place] [address] documented in this encounter Visit Diagnoses Not on filedocumented in this encounter
--- OUTSIDE RECORDS SUMMARY | 2024-04-23 12:13 | XMS_ITS | Encounter Summary ---
Author Organization [facility] Address [facility] [place] [address] Care Team Providers Care Adjunct History Instructor Name Role Phone Tika Simental APRN Primary Care Provider [phone] Encounter Details Date Type Department Care Team (Latest Contact Info) Description 01/13/2024 Travel Social History Tobacco Use Types Packs/Day Years Used Date Smoking Tobacco: Never Smokeless Tobacco: Never Alcohol Use Standard Drinks/Week Comments No 0 (1 standard drink = 0.6 oz pur e alcohol) Sex and Gender Information Value Date Recorded Sex Assigned at Not on file Gender Identity Not on file Sexual Orientation Not on file documented as of this encounter Plan of Treatment Upcoming Encounters Date Type Department Care Team (Late st Contact Info) Description 07/07/2024 11:00 AM EDT Office Visit Cardiology at [address] [place] [address] Lorena Lawrence MD [facility] [place] [address] documented as of this encounter Visit Diagnoses Not on filedocumented in this encounter Care Teams Adjunct History Instructor Relationship Specialty Start Date End Date Tika Simental APRN [facility] [place] [address] PCP - General Family Medicine 04/28/23 documented as of this encounter
--- OUTSIDE RECORDS SUMMARY | 2024-04-23 12:13 | XMS_ITS | Encounter Summary ---
Author Organization [facility] [place] [address] Care Team Providers Care Network Announcer Name Role Phone Henrietta Null MD Primary Care Provider [phone] Reason for Visit * Reason Comments Medication Refill Encounter Details Date Type Department Care Team (Late st Contact Info) Description 03/14/2022 Refill Cardiology at [address] [phone] Lorena Lawrence MD [facility] [place] [address] Medication Refill Social History Tobacco Use Types Packs/Day Years [...] 11:00 AM EDT Office Visit Cardiology at [address] [phone] Lorena Lawrence MD [facility] [place] [address] documented as of this encounter Visit Diagnoses Diagnosis Stress-induced cardiomyopathy Takotsubo syndrome documented in this encounter Care Teams Network Announcer Relationship Specialty Start Date End Date Henrietta Null MD [facility] [place] [address] PCP - General General Internal Medicine 10/03/2003/31 documented as of this encounter
--- OUTSIDE RECORDS SUMMARY | 2024-04-23 12:13 | XMS_ITS | Encounter Summary ---
Author Organization [facility] [place] [address] Care Team Providers Care Polytechnic Registrar Name Role Phone Henrietta Null MD Primary Care Provider [phone] Reason for Visit * Reason Onset Date Comments Medication Refill 07/15/2022 Encounter Details Date Type Department Care Team (Late st Contact Info) Description 07/15/2022 Refill Internal Medicine at [address] [phone] Henrietta Null MD [facility] [place] [address] Social History Tobacco Use Types Packs/Day Years Used Date Smoking Tobacco: Never Smokeless Tobacco: Never Alcohol Use Standard Drinks/Week Comments No 0 (1 standard drink = 0.6 oz pur e alcohol) Sex and Gender Information Value Date Recorded Sex Assigned at Not on file Gender Identity Not on file Sexual Orientation Not on file documented as of this encounter Miscellaneous Notes * Telephone Encounter - María Elena Boles - 07/15/2022 11:40 AM EDT Patient is calling stating she just ran out of this today. This agent could not find an encounter stating this has been requested yet but the patient said this could be asked for twice since she tried requesting it this morning. Please call to advise documented in this encounter Plan of Treatment Upcoming Encounters Date Type Department Care Team (Late st Contact Info) Description 07/07/2024 11:00 AM EDT Office Visit Cardiology at [address] [place] [address] Lorena Lawrence MD [facility] [place] [address] documented as of this encounter Visit Diagnoses Not on filedocumented in this encounter Care Teams Polytechnic Registrar Relationship Specialty Start Date End Date Henrietta Null MD [facility] [address] [address] PCP - General General Internal Medicine 10/03/20 7/ documented as of this encounter
--- OUTSIDE RECORDS SUMMARY | 2024-04-23 12:13 | XMS_ITS | Encounter Summary ---
Author Organization [facility] Address [facility] [address] [place] [address] Care Team Providers Care Senior Data Quality Analyst Name Role Phone Henrietta Null MD Primary Care Provider [phone] Encounter Details Date Type Department Care Team (Latest Contact Info) Description 10/17/2022 Travel Social History Tobacco Use Types Packs/Day [...] 11:00 AM EDT Office Visit Cardiology at [address] [phone] Lorena Lawrence MD [facility] [place] [address] documented as of this encounter Visit Diagnoses Not on filedocumented in this encounter Care Teams Senior Data Quality Analyst Relationship Specialty Start Date End Date Henrietta Null MD [facility] [address] [facility] [place] [address] PCP - General General Internal Medicine 1/02/16 03/31 documented as of this encounter
--- OUTSIDE RECORDS SUMMARY | 2024-04-23 12:13 | XMS_ITS | Encounter Summary ---
Author Organization [facility] Address [facility] [place] [address] Care Team Providers Care Obstetrician/Gynecologist Name Role Phone Henrietta Null MD Primary Care Provider [phone] Encounter Details Date Type Department Care Team (Latest Contact Info) Description 11/11/2022 Travel Social History Tobacco Use Types Packs/Day [...] 11:00 AM EDT Office Visit Cardiology at [address] [phone] Lorena Lawrence MD [facility] [place] [address] documented as of this encounter Visit Diagnoses Not on filedocumented in this encounter Care Teams Obstetrician/Gynecologist Relationship Specialty Start Date End Date Heniretta Null MD [facility] [address] [facility] [address] PCP - General General Internal Medicine 1/02/16 03/31 documented as of this encounter
--- OUTSIDE RECORDS SUMMARY | 2024-04-23 12:13 | XMS_ITS | Encounter Summary ---
Author Organization [facility] [place] [address] Care Team Providers Care Deployment Specialist Name Role Phone Henrietta Null MD Primary Care Provider [phone] Encounter Details Date Type Department Care Team (Late Contact Info) Description 11/11/2022 Telephone Internal Medicine at [address] [phone] Bruna Ly RN Social History Tobacco Use Types Packs/Day Years [...] Encounters Date Type Department Care Team (Late Contact Info) Description 07/07/2024 11:00 AM EDT Office Visit Cardiology at [address] [phone] Lorena Lawrence MD [facility] [place] [address] documented as of this encounter Visit Diagnoses Not on filedocumented in this encounter Care Teams Deployment Specialist Relationship Specialty Start Date End Date Henrietta Null MD [facility] [place] [address] PCP - General General Internal Medicine 10/03/2003/31 documented as of this encounter
--- OUTSIDE RECORDS SUMMARY | 2024-04-23 12:13 | XMS_ITS | Encounter Summary ---
Author Organization [facility] Address [facility] [place] [address] Care Team Providers Care Client Service Representative Name Role Phone Henrietta Null MD Primary Care Provider [phone] Encounter Details Date Type Department Care Team (Latest Contact Info) Description 11/02/2021 1:36 PM EST - 11/02/2021 11:59 PM [facility] Hospital Encounter XRay at [address] [place] [address] Henrietta Null MD [facility] [place] [address] Chronic cough Discharge Disposition: Home Social History Tobacco Use Types Packs/Day Years Used Date Smoking Tobacco: Never Smokeless Tobacco: Never Alcohol Use Standard Drinks/Week Comments No 0 (1 standard drink = 0.6 oz pur e alcohol) Sex and Gender Information Value Date Recorded Sex Assigned at Not on file Gender Identity Not on file Sexual Orientation Not on file documented as of this encounter Medications at Time of Discharge Medication Sig Dispensed Refills Start Date End Date UNABLE TO FIND Probiotic Daily 50 billion cell, One daily CALCIUM LACTATE ORAL Take 1 tablet by mouth daily. INOSITOL ORAL Take 2 tablets by mouth 2 times daily. cholecalciferol, Vitamin D3, (VITAMIN D) 1,000 unit Tab tabletIndications:Osteop enia Take 1 tablet by mouth daily. 01/10/2012 ipratropium (ATROVENT) 21 mcg (0.03 %) [place], Non-Aerosol 2 sprays by Nasal route every 12 hours. 30 mL 12 11/01/2021 07/02/2023 furosemide (Lasix) 20 mg TabletIndications:Stress -induced cardiomyopathy,Congestiv e heart failure, unspecified HF chronicity, unspecified heart failure type Take 1 tablet by mouth daily. 90 tablet 3 06/18/2021 06/12/2022 metoprolol succinate XL (Toprol-XL) 25 mg Tablet Sustained Release 24 hrIndications:Stress-ind uced cardiomyopathy take 1 tablet by mouth once daily 90 tablet 3 03/19/2021 03/14/2022 ipratropium (ATROVENT HFA) 17 mcg/actuation HFA Aerosol Inhaler Inhale 2 puffs into the lungs 2 times daily. 1 Inhaler 12 11/14/2020 11/28/2021 carBAMazepine (TEGretol) 200 mg Tablet Take 200 mg by mouth 3 times daily. 02/19/2022 documented as of this encounter Plan of Treatment Upcoming Encounters Date Type Department Care Team (Late st Contact Info) Description 07/07/2024 11:00 AM EDT Office Visit Cardiology at [address] [address] Lorena Lawrence MD [facility] [place] [address] documented as of this encounter Procedures Procedure Name Priority Date/Time Associated Diagnosis Comments XR CHEST PA AND LATERAL Routine 11/02/2021 2:02 PM EST Chronic cough documented in this encounter Results * XR Chest PA & Lateral (Generic) (11/02/2021 2:02 PM EST) Anatomical Region Laterality Modality Chest N/A Digital Radiogra phy Impressions 11/02/2021 2:12 PM EST 1. ??No displaced right rib fracture. Radiographs are insensitive for the detection of subtle or nondisplaced rib fractures. 2. ??No pneumothorax. 3. ??Trace left pleural effusion versus pleural thickening of the left costophrenic angle with adjacent left basilar atelectasis versus scarring. Thank you for letting us participate in the care of this patient. ??If you are a health care provider and have any questions regarding this report, please contact the number below. ??For patients who have questions please contact the health career center director that requested your imaging first. ? Electronically signed by: Nicky Peters MD, [facility] ([phone]), at 11/02/2021 2:12 PM Narrative 11/02/2021 2:12 PM EST EXAMINATION: XR RIBS RIGHT, XR CHEST PA AND LATERAL (GENERIC) CLINICAL HISTORY: ??R rib pain ?? (as entered by ordering provider in the order requisition) TECHNIQUE: ??PA and lateral views the chest. AP and oblique views of the right ribs. COMPARISON: Chest radiograph 10/01/2020. FINDINGS: Chest: Normal size of the cardiac silhouette. Unchanged contour of the cardiomediastinal and hilar silhouettes, including a tortuous versus ectatic descending thoracic aorta. No focal consolidation. There is blunting of the left costophrenic angle with streaky opacities in the periphery of the left lower lung zone. No dense or confluent consolidation. No appreciable pneumothorax. Ribs: No displaced right rib fracture. Procedure Note Nicky Peters MD - 11/02/2021 EXAMINATION: XR RIBS RIGHT, XR CHEST PA AND LATERAL (GENERIC) CLINICAL HISTORY: R rib pain (as entered by ordering provider inthe order requisition) TECHNIQUE: PA and lateral views the chest. AP and oblique views of theright ribs. COMPARISON: Chest radiograph 10/01/2020. FINDINGS: Chest: Normal size of the cardiac silhouette. Unchanged contour of the cardiomediastinal and hilar silhouettes, including a tortuous versusectatic descending thoracic aorta. No focal consolidation. There is blunting ofthe left costophrenic angle with streaky opacities in the periphery of the leftlower lung zone. No dense or confluent consolidation. No appreciablepneumothorax. Ribs: No displaced right rib fracture. IMPRESSION 1. No displaced right rib fracture. Radiographs are insensitive for the detection of subtle or nondisplaced rib fractures. 2. No pneumothorax. 3. Trace left pleural effusion versus pleural thickening of the left costophrenic angle with adjacent left basilar atelectasis versusscarring. Thank you for letting us participate in the care of this patient. If youare a health care provider and have any questions regarding this report,please contact the number below. For patients who have questions please contactthe health career center director that requested your imaging first. Electronically signed by: Nicky Peters MD, [facility]([phone]), at 11/02/2021 2:12 PM Henrietta Null MD IMG DX ORDERABLES documented in this encounter Visit Diagnoses Diagnosis Chronic cough Cough documented in this encounter Care Teams Client Service Representative Relationship Specialty Start Date End Date Henrietta Null MD [facility] [place] [address] PCP - General General Internal Medicine 10/03/2003/31 documented as of this encounter
--- OUTSIDE RECORDS SUMMARY | 2024-04-23 12:13 | XMS_ITS | Encounter Summary ---
Author Organization [facility] Address [facility] [place] [address] Care Team Providers Care Assisted Living Home Director Name Role Phone Tika Simental APRN Primary Care Provider [phone] Encounter Details Date Type Department Care Team (Latest Contact Info) Description 09/08/2023 Travel Social History Tobacco Use Types Packs/Day [...] 11:00 AM EDT Office Visit Cardiology at [address] [place] [address] Lorena Lawrence MD [facility] [place] [address] documented as of this encounter Visit Diagnoses Not on filedocumented in this encounter Care Teams Assisted Living Home Director Relationship Specialty Start Date End Date Tika Simental APRN [facility] [address] PCP - General Family Medicine 04/28/23 documented as of this encounter
--- OUTSIDE RECORDS SUMMARY | 2024-04-23 12:13 | XMS_ITS | Encounter Summary ---
[facility] Organization [facility] [place] [address] Care Team Providers Care Advertising Sales Agent Name Role Phone Alla Null MD Primary Care Provider [phone] Encounter Details Date Type Department Care Team (Late st Contact Info) Description 11/19/2022 Telephone [place] [phone] Kerry Box, RN Social History Tobacco Use Types Packs/Day [...] encounter Miscellaneous Notes * Telephone Encounter - Shelia Guardado, RN - 11/20/2022 3:27 PM EST Urgent call answered. Spoke to patient. Verified patient by full name and date of . Patient stated that she is currently at [facility] pharmacy in [place], [place] and needs an order for the nebulizer machine and supplies. She stated that she already has the nebulizer solution/medication. Patient placed the pharmacist on the line. Spoke to pharmacist. Verified patient by full name and date of . Pharmacist requested verbal order or order be faxed to [phone] for a nebulizer machine as she reports having one in stock and that the patient will pay out of pocket for it. Will fax order for nebulizer from 11/11/22 to pharmacy now as this rfp writer did not provide a verbal order. She returned the phone to the patient. Patient was advised that order from 11/11 will be faxed to the pharmacy now. She was advised that if this is not the correct order or a new order is needed, to contact the clinic and then a new order will need to be pended and sent to the provider for review. No further needs at this time. Patient verbalized and agrees with plan. Manually faxed Nebulizer order from 11/11/22 to [facility] pharmacy at [phone]. * Telephone Encounter - Marcelle Rodriguez - 11/20/2022 2:51 PM EST Patient is at [facility] in [place]. Pharmacy needs orders for nebulizer for patient. Patient has all medications, just needs the nebulizer and supplies. Please send orders to [facility] in [place] as quickly as possible. Agent unable to connect with nurse. * Telephone Encounter - Adolfo Bernstein RN - 11/20/2022 2:24 PM EST Received page from Call center, patient is at [facility] pharmacy and no medication available. Per note below, medications are at [facility] not [facility], call center will notify patient. * Telephone Encounter - Bruna Ly RN - 11/20/2022 11:27 AM EST Summary: EMILIA Heike ID'd by name and Heike aware that nebulizer prescription will be at [facility] in [place]. She has already collected the nebulizer solution. * Telephone Encounter - Bruna Ly RN - 11/20/2022 10:45 AM EST Summary: EMILIA Ozuna at [facility] states they can provide a nebulizer. Per Madhavi Medicare will probably cover 80%. * Telephone Encounter - Alla Null MD - 11/19/2022 3:04 PM EST Phone call pt, states that her daughter is going to pay the 70 dollars out of pocket for the nebulizer. She is still coughing up phlegm and has SOB. She will call if the neubulizer does not improve symptoms. * Telephone Encounter - Kerry Box RN - 11/19/2022 9:23 AM EST Greeted and identified patient. Patient states she is still having symptoms bad enough to have the nebulizer. * Telephone Encounter - Kerry Box RN - 11/19/2022 8:43 AM EST Copied from [facility] #[id number]. Topic: Pharmacy Call - RX Issues >> Nov 18, 2022 2:36 PM Zuleyma Lubin wrote: Rx Issues PCP: ALLA NULL Reason for Call: The patient's insurance does not cover out of network benefits. Name of Medication: Nebulizer Name of Prescriber: Marlon Guaman MD Name of Pharmacy: [facility] [place] Address for Pharmacy: [facility]/Town & State for Pharmacy: Is the Patient Currently at the Pharmacy: no Call Luz Maria with any questions at [phone] documented in this encounter Plan of Treatment Upcoming Encounters Date Type Department Care Team (Late st Contact Info) Description 07/07/2024 11:00 AM EDT Office Visit Cardiology at [address] [place] [phone] Lorena Lawrence MD [facility] [place] [address] documented as of this encounter Visit Diagnoses Not on filedocumented in this encounter Care Teams Advertising Sales Agent Relationship Specialty Start Date End Date Alla Null MD [facility] [address] [facility] [address] PCP - General General Internal Medicine 10/03/2003/31 documented as of this encounter
--- OUTSIDE RECORDS SUMMARY | 2024-04-23 12:13 | XMS_ITS | Encounter Summary ---
Author Organization [facility] [place] [address] Care Team Providers Care Terrazzo Roller Name Role Phone Henrietta Null MD Primary Care Provider Encounter Details Date Type Department Care Team (Late st Contact Info) Description 10/10/2022 [facility] Only [address] [phone] Eleuterio Garza MD [address] [place] [address] Social History Tobacco Use Types Packs/Day Years [...] 11:00 AM EDT Office Visit Cardiology at [address] [phone] [facility] [place] [address] documented as of this encounter Procedures Procedure Name Priority Date/Time Associated Diagnosis Comments XR CHEST ONE VIEW STAT 10/10/2022 5:3 1 PM EST documented in this encounter Results * XR Chest One View (10/10/2022 5:31 PM EST) PT CLASS E RAD ADMITDTTM RAD PT RAD INFO [id number]^C HANDER^SUNEE R RAD EXAM DESC XCXR1^XR CHEST 1 VIEW^RIS RAD Anatomical Region Laterality Modality Chest N/A Radiographic Juliet ging Impressions 10/10/2022 6:31 PM EST No acute cardiopulmonary process. Preliminary report signed by: Edmar Samaniego at 10/10/2022 5:57 PM I have personally reviewed the image(s) and the resident's interpretation and agree with the findings, MELLY BAKER MD at 10/10/2022 6:31 PM Thank you for letting us participate in the care of this patient. ??If you are a health care provider and have any questions regarding this report, please contact the number below. ??For patients who have questions please contact the health client care specialist that requested your imaging first. ? Narrative 10/10/2022 6:31 PM EST EXAMINATION: XR CHEST 1 VIEW CLINICAL HISTORY: SOB TECHNIQUE: PA radiograph the chest. COMPARISON: Chest radiographs to 01/16/2022 FINDINGS: The lungs are clear. No pneumothorax or pleural effusion. The cardiomediastinal contours, [place], and pulmonary vasculature are unremarkable. No acute osseous abnormalities. Procedure Note Melly Baker MD - 10/10/2022 EXAMINATION: XR CHEST 1 VIEW CLINICAL HISTORY: SOB TECHNIQUE: PA radiograph the chest. COMPARISON: Chest radiographs to 01/16/2022 FINDINGS: The lungs are clear. No pneumothorax or pleural effusion. Thecardiomediastinal contours, [place], and pulmonary vasculature are unremarkable. No acuteosseous abnormalities. IMPRESSION No acute cardiopulmonary process. Preliminary report signed by: Edmar Samaniego at 10/10/2022 5:57 PM I have personally reviewed the image(s) and the resident's interpretationand agree with the findings, MELLY BAKER MD at 10/10/2022 6:31 PM Thank you for letting us participate in the care of this patient. If youare a health care provider and have any questions regarding this report,please contact the number below. For patients who have questions please contactthe health client care specialist that requested your imaging first. Electronically signed by: MELLY BAKER MD, [facility]([phone]), at 10/10/2022 6:31 PM Eleuterio Garza MD IMG DX ORDERABLES documented in this encounter Visit Diagnoses Not on filedocumented in this encounter Care Teams Terrazzo Roller Relationship Specialty Start Date End Date Henrietta Null MD [facility] [place] [address] PCP - General General Internal Medicine 10/03/2003/31 documented as of this encounter
--- OUTSIDE RECORDS SUMMARY | 2024-04-23 12:13 | XMS_ITS | Encounter Summary ---
Author Organization [facility] [place] [address] Care Team Providers Care Emergency Detail Driver Name Role Phone Henrietta Null MD Primary Care Provider [phone] Encounter Details Date Type Department Care Team (Late st Contact Info) Description 10/09/2021 Telephone Internal Medicine at [address] [address] Bruna Ly RN Social History Tobacco Use [...] encounter Miscellaneous Notes * Telephone Encounter - Vani Mobley RN - 10/09/2021 12:04 PM EST Return call from Heike - Reported that she continues to have a mildly runny nose and productive cough. No fever. Patient denied any other Covid-19 symptoms. Stated that her cough has been ongoing for a while. Reported that her last week. My children think I should be seen by the doctor. I don't think it has gotten any worse, but they are worried about me. Call sent to Dr Null and to the [facility] to arrange for an appointment. documented in this encounter Plan of Treatment Upcoming Encounters Date Type Department Care Team (Late st Contact Info) Description 07/07/2024 11:00 AM EDT Office Visit Cardiology at [address] [facility] [place] [address] Lorena Lawrence MD [facility] [place] [address] documented as of this encounter Visit Diagnoses Not on filedocumented in this encounter Care Teams Emergency Detail Driver Relationship Specialty Start Date End Date Henrietta Null MD [facility] [address] [place] [address] PCP - General General Internal Medicine 10/03/2003/31 documented as of this encounter
--- OUTSIDE RECORDS SUMMARY | 2024-04-23 12:13 | XMS_ITS | Encounter Summary ---
Author Organization [facility] Address [facility] [place] [address] Care Team Providers Care Public Health Specialist Name Role Phone Tika Simental APRN Primary Care Provider [phone] Encounter Details Date Type Department Care Team (Latest Contact Info) Description 07/02/2023 Travel Social History Tobacco Use Types Packs/Day [...] AM EDT Office Visit Cardiology at [address] [place] [address] Lorena Lawrence MD [facility] [place] [address] documented as of this encounter Visit Diagnoses Not on filedocumented in this encounter Care Teams Public Health Specialist Relationship Specialty Start Date End Date Tika Simental APRN [facility] [place] [address] PCP - General Family Medicine 04/28/23 documented as of this encounter
--- OUTSIDE RECORDS SUMMARY | 2024-04-23 12:13 | XMS_ITS | Encounter Summary ---
Author Organization [facility] [place] [address] Care Team Providers Care Harp Regulator Name Role Phone Henrietta Null MD Primary Care Provider [phone] Reason for Referral * Consultation (Routine) - Closed Specialty Diagnoses / Procedures Referred By Evelio mathis Referred To Contact Plastic Surgery Diagnoses Nodule of finger of left hand Henrietta Null MD [facility] [place] [address] [facility] Plastic Surg [address] [place] [phone] Referral ID Status Reason Start Date Expiration Date V isits Requested Visits Authorized [id number] Closed Specialty Service Requested 02/18/2022 02/18/2023 1 1 Reason for Visit * Reason Comments Nevus Mole check , back of neck, below left eye, under breast, left shoulder, inside of right arm Foreign Body in Skin Top of middle finge r, left hand, if she bumps it very painful Encounter Details Date Type Department Care Team (Late st Contact Info) Description 02/18/2022 3:00 PM EDT Office Visit Internal Medicine at [address] [address] Henrietta Null MD [facility] [place] [address] Allergic reaction, subsequent encounter; Nodule of finger of left hand; Inflamed skin tag Social History Tobacco Use Types Packs/Day Years [...] Sign Reading Time Taken Comments Blood Pressure 108/49 02/18/2022 2:57 PM EDT Pulse 74 02/18/2022 2:57 PM EDT Temperature - - Respiratory Rate - - Oxygen Saturation 97% 02/18/2022 2:57 PM EDT Inhaled Oxygen Concentration - - Weight 53 kg (116 lb 12.8 oz) 02/18/2022 2:57 PM EDT Height 147.1 cm (4' 9.91) 02/18/2022 2:57 PM ED T reported Body Mass Index 24.48 02/18/2022 2:57 PM EDT documented in this encounter Progress Notes * Henrietta Null MD - 02/18/2022 3:00 PM EDT ESTABLISHED PATIENT FOLLOW-UP VISIT Chief Complaint Patient presents with ??? Nevus Mole check , back of neck, below left eye, under breast, left shoulder, inside of right arm ??? Foreign Body in Skin Top of middle finger, left hand, if she bumps it very painful Pt is a 77 y.o. female who presents for scheduled follow up visit. Issues include Allergic reaction - reaction to insect bite last week. Bitten on L foot, within an hour redness wasup to ankle without response to benadryl. Was seen in in ER at [facility] and given an oral steroid with improvement. States she had a slight tightness in her throat without trouble breathing. Has had bad reactions in past but never with anaphylaxis. Thinks she may have had an epipen in the past. Wonde rs if she should have a steroid at home. Is on lizbeth daily for her allergies. Skin lesions - numerous new skin lesions, can get red and irritated aristeo those under her breasts andunder her arms. Also with one on back of neck that gest irritated by her necklace. Small one under L eye can sometimes get in her vision. Finger nodule - cut her knuckle on her L middle finger. Now has a bump at the location which can bevery painful if she bumps it just right. Current Outpatient Medications on File Prior to Visit Medication Sig Dispense Refill ??? Atrovent HFA 17 mcg/actuation HFA Aerosol Inhaler inhale 2 puffs by mouth INTO THE LUNGS twice a day 12.9 g 5 ??? ipratropium (ATROVENT) 21 mcg (0.03 %) [place], Non-Aerosol 2 sprays by Nasal route every 12 hours. 30 mL 12 ??? furosemide (Lasix) 20 mg Tablet Take 1 tablet by mouth daily. 90 tablet 3 ??? metoprolol succinate XL (Toprol-XL) 25 mg Tablet Sustained Release 24 hr take 1 tablet by mouthonce daily 90 tablet 3 ??? UNABLE TO FIND Probiotic Daily 50 billion cell, One daily ??? CALCIUM LACTATE ORAL Take 1 tablet by mouth daily. ??? INOSITOL ORAL Take 2 tablets by mouth 2 times daily. ??? cholecalciferol, Vitamin D3, (VITAMIN D) 1,000 unit Tab tablet Take 1 tablet by mouth daily. ??? carBAMazepine (TEGretol) 200 mg Tablet Take 200 mg by mouth 3 times daily. No current facility-administered medications on file [...] Social History Social History Narrative Lives in [place], with her . 4 children ([facility], [facility], next door). 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 Enjoying cooking, gardening, swimming. No tob No etoh rare caffeine (tea) exercise at work only Father age 88, + cerebral aneurysm, also with AAA Mother age 40 with SLE Colon Cancer - sister Pancreatic Duct cancer? - sister, also with COPD Brother - from trauma, pt relates to etoh Sister - diverticulitis Sister - alzheimer's Physical Exam: Vitals: 02/18/22 1457 BP: 108/49 BP Location (NBP): Left arm Patient Position: Sitting BP Cuff Sizes: Adult (25-34 cm) Pulse: 74 SpO2: 97% Weight: 53 kg (116 lb 12.8 oz) Height: 147.1 cm (4' 9.91) Wt Readings from Last 3 Encounters: 02/18/22 53 kg (116 lb 12.8 oz) 11/05/21 51.7 kg (114 lb) 10/23/21 51.7 kg (114 lb) General - No acute distress. Appears well Skin - Multiple skin tags, most less than 2 mm under L eye, B axilla and under breasts B. Larger 4-5 mm skin tag posterior neck with wider base. Hand - Tender nodule overlying the PIP joint of the third digit of her L hand. Full rom at the joints of finger. No overlying warmth or erythema. Procedure - after verbal consent, her skin was cleansed with ethyl alcohol and skin tags numbering 9 were removed with sharp pair of scissors at their bases and bleeding was controlled with silver nitrate. There was no residual bleeding at completion of procedure. Assessment and Plan: Heike was seen today for f/up. Diagnoses and all orders for this visit: Allergic reaction, subsequent encounter - will provide epipen should she develop breathing symptomswith future bites/stings. If she uses epipen, reviewed that she should be seen in the ER in f/up. Discussed that if no breathing symptoms, she should call our office and we could either see her or call a dose of prednisone into the pharmacy. We discussed continued use of benadryl as first line. - EPINEPHrine 0.3 mg/0.3 mL Auto-Injector; Inject 0.3 mL IM once as needed for allergic reaction (Throat tight, difficulty breathing). Call 911 as directed. Nodule of finger of left hand - painful scar tissue at site of laceration. - Referral to Plastic Surgery Inflamed skin tags - removed without difficulty in office today documented in this encounter Miscellaneous Notes * Addendum Note - Henrietta Null MD - 02/18/2022 3:00 PM EDTAddended by: HENRIETTA NULL on: 02/19/2022 03:19 PM Modules accepted: Orders documented in this encounter Plan of Treatment Upcoming Encounters Date Type Department Care Team (Late st Contact Info) Description 07/07/2024 11:00 AM EDT Office Visit Cardiology at [address] [phone] Lorena Lawrence MD [facility] [place] [address] Scheduled Referrals Name Type Priority Associated Diagnoses Orde r Schedule Referral to Plastic Surgery Outpatient Referral Routine Nodule of finger of left hand Ordered: 02/18/2022 documented as of this encounter Visit Diagnoses Diagnosis Allergic reaction, subsequent encounter Nodule of finger of left hand Inflamed skin tag Unspecified hypertrophic and atrophic condition of skin documented in this encounter Care Teams Harp Regulator Relationship Specialty Start Date End Date Henrietta Null MD [facility] [address] [place] [address] PCP - General General Internal Medicine 10/03/2003/31 documented as of this encounter
--- OUTSIDE RECORDS SUMMARY | 2024-04-23 12:13 | XMS_ITS | Encounter Summary ---
Author Organization [facility] Address [facility] [place] [address] Care Team Providers Care Teacher Of The Visually Impaired Name Role Phone Henrietta Null MD Primary Care Provider [phone] Encounter Details Date Type Department Care Team (Latest Contact Info) Description 11/02/2021 1:[address] [facility] Hospital Encounter XRay at [address] [place] [address] Henrietta Null MD [facility] [place] [address] Rib pain on right side Discharge Disposition: Home Social History Tobacco Use [...] 01/10/2012 ipratropium (ATROVENT) 21 mcg (0.03 %) [place], Non-Aerosol 2 sprays by Nasal route every [...] 11:00 AM EDT Office Visit Cardiology at [address] [place] [address] Lorena Lawrence MD [facility] [place] [address] documented as of this encounter Procedures Procedure Name Priority Date/Time Associated Diagnosis Comments XR RIBS RIGHT Routine 11/02/2021 2:02 PM EST Rib pain on right side documented in this encounter Results * XR Ribs Right (11/02/2021 2:02 PM EST) Anatomical Region Laterality Modality Chest Right Digital Radiogra phy Impressions 11/02/2021 2:12 PM [...] questions please contact the health client care representative that requested your imaging first. ? Electronically signed by: Nicky Peters MD, [facility] ([phone]), at 11/02/2021 2:12 PM Narrative 11/02/2021 2:12 [...] have questions please contactthe health client care representative that requested your imaging first. Henrietta Null MD IMG DX ORDERABLES documented in this encounter Visit Diagnoses Diagnosis Rib pain on right side Chest pain, unspecified documented in this encounter Care Teams Teacher Of The Visually Impaired Relationship Specialty Start Date End Date Henrietta Null MD [facility] [place] [address] PCP - General General Internal Medicine 10/03/2003/31 documented as of this encounter
--- OUTSIDE RECORDS SUMMARY | 2024-04-23 12:13 | XMS_ITS | Encounter Summary ---
Author Organization Formerly [facility] [place] [address] Care Team Providers Care Superintendent Storage Area Name Role Phone Henrietta Null MD Primary Care Provider [phone] Encounter Details Date Type Department Care Team (Latest Contact Info) Description 07/03/2022 3:20 PM EDT Office Visit Cardiology at [address] [address] Lorena Lawrence MD [facility] [place] [address] LBBB (left bundle branch block); Stress-induced cardiomyopathy Social History Tobacco Use Types Packs/Day Years [...] Sign Reading Time Taken Comments Blood Pressure 127/71 07/03/2022 3:48 PM EDT Pulse 72 07/03/2022 3:48 PM EDT Temperature - - Respiratory Rate - - Oxygen Saturation - - Inhaled Oxygen Concentration - - Weight 52.2 kg (115 lb) 07/03/2022 3:48 PM EDT Height 146.1 cm (4' 9.5) 07/03/2022 3:48 PM EDT Body Mass Index 24.45 07/03/2022 3:48 PM EDT documented in this encounter Progress Notes * Lorena Lawrence MD - 07/03/2022 3:20 PM EDT CARDIOLOGY OUTPATIENT FOLLOW-UP NOTE PRIMARY CARE PROVIDER: Henrietta Null MD REFERRING PROVIDER: Henrietta Null PROBLEM LIST: Patient Active Problem List Diagnosis ??? LBBB (left bundle branch block) ??? Stress-induced cardiomyopathy ??? Acute non-ST segment elevation myocardial infarction Repeat Echo 04/07 - no WMA. EF 56% ??? Skin lesion of hand ??? Nevus, atypical - foot ??? Trigger fingers, left thumb and ring, right ring ??? Ovarian fibroma ??? Osteoporosis On drug holiday, no change in bone density on 04/14 DEXA scan, [facility] -3.2 in spine >-2.5 in hip. ??? Trigeminal neuralgia Taking inositol daily and tapering down on her tegretol. MEDICATIONS: Current Outpatient Medications Medication Sig Dispense Refill ??? furosemide (Lasix) 20 mg Tablet take 1 tablet by mouth once daily (Patient taking differently: Take 20 mg by mouth every other day.) 90 tablet 3 ??? metoprolol succinate XL (Toprol-XL) 25 mg Tablet Sustained Release 24 hr take 1 tablet by mouthonce daily 90 tablet 3 ??? EPINEPHrine 0.3 mg/0.3 mL Auto-Injector Inject 0.3 mL IM once as needed for allergic reaction (Throat tight, difficulty breathing). Call 911 as directed. 1 kit 0 ??? fexofenadine (Naima) 60 mg Tablet Take 60 mg by mouth daily. ??? Atrovent HFA 17 mcg/actuation HFA Aerosol Inhaler inhale 2 puffs by mouth INTO THE LUNGS twice a day 12.9 g 5 ??? ipratropium (ATROVENT) 21 mcg (0.03 %) [place], Non-Aerosol 2 sprays by Nasal route every 12 hours. 30 mL 12 ??? UNABLE TO FIND Probiotic Daily 50 billion cell, One daily ??? CALCIUM LACTATE ORAL Take 1 tablet by mouth daily. ??? INOSITOL ORAL Take 2 tablets by mouth 2 times daily. ??? cholecalciferol, Vitamin D3, (VITAMIN D) 1,000 unit Tab tablet Take 1 tablet by mouth daily. No current facility-administered medications for this visit. Subjective: Patient ID: Heike Ramires is a 77 y.o. female. HPI This 77-year-old woman presents for routine cardiac follow-up. A few years ago she had a non-ST elevation myocardial infarction which was subsequently felt to be a stress-induced cardiomyopathy. Cardiac catheterization disclosed no obstructive coronary disease. She had transient LV dysfunction which subsequently normalized. She comes in today feeling well. Since her last visit a year ago she has had no significant medical problems. She continues to keep very busy. 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 She does not experience any palpitations difficulty breathing or chest discomfort. She feels basicallywell and has no particular questions or concerns today Review of System Review of Systems Cardiovascular: Negative for chest pain, dyspnea on exertion, irregular heartbeat, leg swelling andpalpitations. Respiratory: Negative for shortness of breath. All other systems reviewed and are negative. Family History: Family History Problem Relation Age of Onset ??? Aneurysm Father cerebral aneurysm ??? Abdominal Aortic Aneurysm Father ??? Lupus Mother ??? Colorectal Cancer Sister ??? Pancreatic Cancer Sister ?pancreatic duct CA ??? Chronic Obstructive Pulmonary Disease Sister ??? * Sister diverticulitis ??? Breast Cancer Neg Hx Social History: Social History Socioeconomic History ??? Marital status: Spouse name: Not on file ??? Number of children: Not on file ??? Years of education: Not on file ??? Highest education level: Not on file Occupational History ??? Not on file Tobacco Use ??? Smoking status: Never Smoker ??? Smokeless tobacco: Never Used Vaping Use ??? Vaping Use: Never used Substance and Sexual Activity ??? Alcohol use: No ??? Drug use: No ??? Sexual activity: Yes Partners: Male Other Topics Concern ??? Not on file Social History Narrative Lives in [place], with her . 4 children ([facility], [facility], next door). 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 Enjoying cooking, gardening, swimming. No tob No etoh rare caffeine (tea) exercise at work only Father age 88, + cerebral aneurysm, also with AAA Mother age 40 with SLE Colon Cancer - sister Pancreatic Duct cancer? - sister, also with COPD Brother - from trauma, pt relates to etoh Sister - diverticulitis Sister - alzheimer's Social Determinants of Health Financial Resource Strain: Not on file Food Insecurity: Not on file Transportation Needs: Not on file Physical Activity: Not on file Housing Stability: Not on file Objective: Physical Exam Vitals and nursing note reviewed. Constitutional: Comments: Well-developed well-nourished normal weight looks much younger than stated age no acute distress Neck: Comments: Neck veins are flat, carotid pulsations are normal without bruits Cardiovascular: Comments: Heart is regular normal S1-S2 paradoxic no murmur or gallop Pulmonary: Effort: Pulmonary effort is normal. No respiratory distress. Breath sounds: Normal breath sounds. Abdominal: General: Abdomen is flat. Musculoskeletal: Comments: No peripheral edema Skin: General: Skin is warm and dry. EKG today shows sinus rhythm at 62, left axis, left bundle branch block, no change from previous Assessment and Plan: #1. Stress-induced cardiomyopathy. This has resolved with normalization of LV function. She did nothave any significant obstructive coronary disease #2. Left bundle branch block. EKG is stable No medication changes or diagnostic testing was recommended today. We will plan to reevaluate in 1 year Thank you for the opportunity to participate in this patient's cardiovascular care. All questions were answered and I look forward to the next visit. documented in this encounter Plan of Treatment Upcoming Encounters Date Type Department Care Team (Late st Contact Info) Description 07/07/2024 11:00 AM EDT Office Visit Cardiology at [address] [phone] Lorena Lawrence MD [facility] [place] [address] documented as of this encounter Visit Diagnoses Diagnosis LBBB (left bundle branch block) Other left bundle branch block Stress-induced cardiomyopathy Takotsubo syndrome documented in this encounter Care Teams Superintendent Storage Area Relationship Specialty Start Date End Date Henrietta Null MD [facility] [place] [address] PCP - General General Internal Medicine 10/03/2003/31 documented as of this encounter
--- OUTSIDE RECORDS SUMMARY | 2024-04-23 12:13 | XMS_ITS | Encounter Summary ---
Author Organization [facility] [place] [address] Care Team Providers Care Photographic Intelligence Officer Name Role Phone Henrietta Null MD Primary Care Provider [phone] Reason for Visit * Reason Onset Date Comments Other 02/12/2022 ER Followup Eval Encounter Details Date Type Department Care Team (Late st Contact Info) Description 02/12/2022 Telephone Internal Medicine at [address] [phone] Henrietta Null MD [facility] [place] [address] Other (ER Followup Eval) Social History Tobacco Use Types Packs/Day Years [...] encounter Miscellaneous Notes * Telephone Encounter - Henrietta Null MD - 02/16/2022 4:45 PM EDT Will discuss options for care at her appt next week. Will determine if any history of anaphylaxis. If no history, then will not plan on prescribing epipen. . * Telephone Encounter - Bruna Ly RN - 02/12/2022 3:50 PM EDTSummary: EMILIA Burroughs ID'd by name and Heike says they gave her steroids in a cup at [facility]. She is happy to have whatever wants her to have at home. She will see Dr. Null on Friday and requests that we teach her to use the medication if it is the shot. She feels very well now. * Telephone Encounter - Tan Ratliff - 02/12/2022 9:51 AM EDT Please call patient to discuss Emergency Room Follow Up Reason for the Emergency Room visit: Hornet Bite Name of the facility where patient was seen: [facility] Symptomatic now: no Other information:Patient would like medication in the event another bite occurs so that she doesn't need to go to the emergency room. Caller and Relationship (if other than patient): Heike Ramires Best time to call back: any Okay to leave a message: x Okay to send my- message: x Nurse contacted via: Message: x Call: x Pager: x documented in this encounter Plan of Treatment Upcoming Encounters Date Type Department Care Team (Late st Contact Info) Description 07/07/2024 11:00 AM EDT Office Visit Cardiology at [address] [place] [phone] Lorena Lawrence MD [facility] [place] [address] documented as of this encounter Visit Diagnoses Not on filedocumented in this encounter Care Teams Photographic Intelligence Officer Relationship Specialty Start Date End Date Henrietta Null MD [facility] [place] [address] PCP - General General Internal Medicine 10/03/2003/31 documented as of this encounter
--- OUTSIDE RECORDS SUMMARY | 2024-04-23 12:13 | XMS_ITS | Encounter Summary ---
Author Organization [facility] [place] [address] Care Team Providers Care Development Lead Name Role Phone Henrietta Null MD Primary Care Provider [phone] Encounter Details Date Type Department Care Team (Late st Contact Info) Description 07/10/2022 Telephone Internal Medicine at [address] [address] Henrietta Null MD [facility] [place] [address] Social History Tobacco Use Types Packs/Day Years [...] encounter Miscellaneous Notes * Telephone Encounter - Carol Choi RN - 07/11/2022 10:10 AM EDT TC to the patient:Left message. * Telephone Encounter - Otto Mason - 07/10/2022 4:08 PM EDT Message: Patient states that she recently got her Covid and flu shots, and would like to know how long she should wait before getting her shingles shot. Please call to advise. Ask caller their first and last name and relationship to the patient: self Best time to call back: any Ok to leave a message: y Ok to send my- message: n Offered Appointment: N/A MA/Nurse/Animal Physiology Teacher contacted via: Message: y Call: n Pager: n documented in this encounter Plan of Treatment Upcoming Encounters Date Type Department Care Team (Late st Contact Info) Description 07/07/2024 11:00 AM EDT Office Visit Cardiology at [address] [address] Lorena Lawrence MD [facility] [place] [address] documented as of this encounter Visit Diagnoses Not on filedocumented in this encounter Care Teams Development Lead Relationship Specialty Start Date End Date Henrietta Null MD [facility] [address] [place] [address] PCP - General General Internal Medicine 10/03/20 7/ documented as of this encounter
--- OUTSIDE RECORDS SUMMARY | 2024-04-23 12:13 | XMS_ITS | Encounter Summary ---
[place] [address] Care Team Providers Care Reinforcing Bar Setter Name Role Phone Henrietta Null MD Primary Care Provider [phone] Encounter Details Date Type Department Care Team (Late st Contact Info) Description 10/10/2022 [place] [phone] Yola Jones RN Social History Tobacco Use Types Packs/Day [...] encounter Miscellaneous Notes * Telephone Encounter - Yola Jones RN - 10/10/2022 4:26 PM EST [facility] NurseLine Call Documentation Birthdate: 1945 Call Date: Age: 77 Years Work Phone: Work Phone: Gender: Female Time: [address] [place] [address] Address: [address] [place] [address] Address: PCP: Henrietta Null MD Relationship to Caller: Self Org: [facility] Chief Complaint: COUGH Call Outcome: ED Immediately Client: Company: [employer] PhoneLine1: [facility], Triage Patient: Heike Ramires Caller Is: Heike Ramires 10/10/2022 16:17 Hospital Admissison in past 30 days? No Mbr ID: Email: Preliminary Assessment Notes & Patient/Caller Notes: Chief Complaint:difficulty breathing; cough Onset: 3 days ago Describe Sx: coughing up yellow sputum; difficulty breathing; breathing ok right now; wheezing; sobwith activity and at rest; no chest pain; headache Precipitating Factors: has a cough off and on all the time; tested negative for Covid19 today Worse/Better (include Meds:D/R/T):no/ asa just now Effects on normal activity: harder to do normal activities I&O: wnl Temp (rte/time): denies Pain scale/0-10: headache 7-8/10 NOTES: Patient / Caller Notes: DIAGNOSED PROBLEMS: CHF; sinus infections; MEDICATIONS: metropolol; furosemide; ALLERGIES: pain medication FULL COURSE OF COVID IMMUNIZATION?: yes and boosters ANNUAL FLU SHOT?: yes 10/10/2022 16:20:43 [facility] Pt. Keny/Alerts : Nursing Documentation: Triage By: [facility] Guideline: Cough - Acute Productive - (Adult After-Hours) [[id number]] Triage Level: Pre Disposition: RN Override: Go to ED Now See/call Doctor Disagree Reason: Go to Facility: Patient Understands Instructions: Yes Questions / Responses For: Cough - Acute Productive - (Adult After-Hours) [[id number]] TRIAGE QUESTION (TRIGGERING DISPOSITION) Response [1] MODERATE difficulty breathing (e.g., speaks in phrases, SOB even at rest, pulse 100-120) AND [2] still present when not coughing R/O: pneumonia Heike Ramires Triage #: [id number] - [COUGH] Page 1 of 2 CARE ADVICE Response 1. CARE ADVICE given per Cough - Acute Productive (Adult) guideline. 12. CALL EMS 911 IF: * Severe difficulty breathing occurs * Lips or face turns blue * Passes out or becomes confused. 41. GO TO ED NOW: * You need to be seen in the Emergency Department. * Go to the ED at Hospital. * Leave now. Drive carefully. 80. ANOTHER ADULT SHOULD DRIVE: * It is better and safer if another adult drives instead of you. 81. BRING MEDICINES: * Please bring a list of your current medicines when you go to the Emergency Department (ER). * It is also a good idea to bring the pill bottles too. This will help the doctor to make certain you are taking the right medicines and the right dose. documented in this encounter Plan of Treatment Upcoming Encounters Date Type Department Care Team (Late st Contact Info) Description 07/07/2024 11:00 AM EDT Office Visit Cardiology at [address] [address] Lorena Lawrence MD [facility] [place] [address] documented as of this encounter Visit Diagnoses Not on filedocumented in this encounter Care Teams Reinforcing Bar Setter Relationship Specialty Start Date End Date Henrietta Null MD [facility] [address] [place] [address] PCP - General General Internal Medicine 10/03/2003/31 documented as of this encounter
--- OUTSIDE RECORDS SUMMARY | 2024-04-23 12:13 | XMS_ITS | Encounter Summary ---
Author Organization [facility] [place] [address] Care Team Providers Care Telephone Messenger Name Role Phone Henrietta Null MD Primary Care Provider Reason for Visit * Reason Onset Date Comments Medication Problem 07/15/2022 Encounter Details Date Type Department Care Team (Late st Contact Info) Description 07/15/2022 Telephone Internal Medicine at [address] [phone] Henrietta Null MD [facility] [place] [address] Medication Problem Social History Tobacco Use Types Packs/Day Years [...] encounter Miscellaneous Notes * Telephone Encounter - Lori Molina - 07/15/2022 2:40 PM EDT Pharmacy or caller: Heike Ramires Phone Number: Telephone Information: Medication: ipratropium (Atrovent HFA) 17 mcg/actuation HFA Aerosol Inhaler Message: Patient states that her daughter has been speaking with someone about obtaining this medication at a lower cost. Patient's daughter is currently in [place]. Patient states she will have her granddaughter, Genia Quan call. Patient gives verbal permission to discuss this matter with Genia. Did you contact your pharmacy?: yes, pharmacist states prescription is over $200 out of pocket and he understands someone was going to locate a coupon for patient but did not know the details. documented in this encounter Plan of Treatment Upcoming Encounters Date Type Department Care Team (Late st Contact Info) Description 07/07/2024 11:00 AM EDT Office Visit Cardiology at [address] [phone] Lorena Lawrence MD [facility] [place] [address] documented as of this encounter Visit Diagnoses Not on filedocumented in this encounter Care Teams Telephone Messenger Relationship Specialty Start Date End Date Henrietta Null MD [facility] [address] [place] [address] PCP - General General Internal Medicine 10/03/2003/31 documented as of this encounter
--- OUTSIDE RECORDS SUMMARY | 2024-04-23 12:13 | XMS_ITS | Encounter Summary ---
Author Organization [facility] Address [facility] [place] [address] Care Team Providers Care Technical Account Executive Name Role Phone Tika Simental APRN Primary Care Provider [phone] Reason for Referral * Consultation (Priority 3) - Closed Specialty Diagnoses / Procedures Referred By Evelio mathis Referred To Contact Dermatology Diagnoses Screening for skin cancer Tika Simental APRN [address] [place] [address] [facility] Dermatology [address] [facility] [place] [address] Referral ID Status Reason Start Date Expiration Date V isits Requested Visits Authorized [id number] Closed Consult, Test & Treat PCP Updated and/or Approved 04/28/2023 04/27/2024 12 12 Encounter Details Date Type Department Care Team (Latest Contact Info) Description 04/28/2023 Transcribe Orders eDH Incoming Referrals [phone] Tika Simental APRN [address] [place], [place] [phone] Screening for skin cancer Social History Tobacco Use Types Packs/Day Years [...] Upcoming Encounters Date Type Department Care Team ([facility] Contact Info) Description 07/07/2024 11:00 AM EDT Office Visit Cardiology at [address] [place] [address] Lorena Lawrence MD [facility] [place] [address] Scheduled Referrals Name Type Priority Associated Diagnoses Order Schedule Referral to Dermatology Outpatient Referral Routine Screening for skin cancer Ordered: 04/28/2023 documented as of this encounter Visit Diagnoses Diagnosis Screening for skin cancer Screening for malignant neoplasm of the skin documented in this encounter Care Teams Technical Account Executive Relationship Specialty Start Date End Date Tika Simental APRN [address] [place] [address] PCP - General Family Medicine 04/28/23 documented as of this encounter
--- OUTSIDE RECORDS SUMMARY | 2024-04-23 12:13 | XMS_ITS | Encounter Summary ---
Author Organization [facility] [place] [address] Care Team Providers Care Lead Scientist Name Role Phone Henrietta Null MD Primary Care Provider [phone] Encounter Details Date Type Department Care Team (Late st Contact Info) Description 01/10/2023 Refill Internal Medicine at [address] [address] Mick Shook RN Intermittent asthma with acute exacerbation, unspecified asthma [...] as of this encounter Miscellaneous Notes * Addendum Note - Mick Shook RN - 01/10/2023 3:51 PM EDTAddended by: MICK SHOOK on: 01/10/2023 03:51 PM Modules accepted: Orders * Telephone Encounter - Mick Shook RN - 01/10/2023 3:45 PM EDT Phoned patient, she states when she removes her spacer there is no mouth piece, she wants an inhaler without a mouthpiece so she does not need to bring her spacer with her when she leaves the home Asked patient which for of the inhaler did she receive for her fluticasone, the round purple one, or the one that is shaped like a L, pt stated she has a round inhaler, she stated [facility] in [place], no script in chart for [facility], but there was one for a pharmacy in [place]. Phoned [facility] in [place], spoke with pharmacist, his system shows that the script was forwarded to the [facility] in [place] and that if was for an HFA inhaler which is L shaped. Phoned [facility] in [place], provided pt's name and , they did not have pt in their system and could not confirm any information about an inhaler. * Telephone Encounter - Mick Shook RN - 01/10/2023 3:21 PM EDT Copied from [facility] #[id number]. Topic: Pharmacy Call - RX Issues >> Jan 10, 2023 3:13 PM Tiffani Catalan wrote: Rx Issues PCP: HENRIETTA NULL Reason for Call: Patient calling in she stated she would like this inhaler without the spacer and larger mouth piece so that she can take it with her to use when she is not in her home. Please call back to discuss. Name of Medication: fluticasone propion-salmeteroL (ADVAIR HFA) 45-21 mcg/actuation HFA Aerosol Inhaler Name of Prescriber: Marlon Guaman MD Name of Pharmacy: [facility] [employer] [place] Address for Pharmacy: [facility] State for Pharmacy: [place], [place] Is the Patient Currently at the Pharmacy: no documented in this encounter Plan of Treatment Upcoming Encounters Date Type Department Care Team (Late st Contact Info) Description 07/07/2024 11:00 AM EDT Office Visit Cardiology at [address] [place] [address] Lorena Lawrence MD [facility] [place] [address] documented as of this encounter Visit Diagnoses Diagnosis Intermittent asthma with acute exacerbation, unspecified asthma severity documented in this encounter Care Teams Lead Scientist Relationship Specialty Start Date End Date Henrietta Null MD [facility] [address] [place] [address] PCP - General General Internal Medicine 10/03/2003/31 documented as of this encounter
--- OUTSIDE RECORDS SUMMARY | 2024-04-23 12:13 | XMS_ITS | Encounter Summary ---
Author Organization [facility] [place] [address] Care Team Providers Care Semiconductors Wafer Breaker Name Role Phone Henrietta Null MD Primary Care Provider [phone] Encounter Details Date Type Department Care Team (Late st Contact Info) Description 10/05/2021 Telephone Internal Medicine at [address] [id number] Henrietta Null MD [facility] GENER[facility] [place] [address] Social History Tobacco Use Types Packs/Day Years [...] encounter Miscellaneous Notes * Telephone Encounter - Nellie Mariscal RN - 10/05/2021 12:39 PM EST Left a voicemail to call [phone]. TUSHAR Dean * Telephone Encounter - Tiffani Donovan - 10/05/2021 12:35 PM EST Message: Heike called in looking to schedule an appointment as she has been experiencing a cough that has been going on for a while now. Heike wants to make sure its nothing more serious as she has had water around her heart in the past. Please call to assist Ask caller their first and last name and relationship to the patient: Heike Acosta Best time to call back: anytime Ok to leave a message: yes Ok to send [facility] message: no Offered Appointment: Offered virtual visit, Heike declined MA/Nurse/[place] contacted via: Message: yes Call: yes no answer Pager: no documented in this encounter Plan of Treatment Upcoming Encounters Date Type Department Care Team (Late st Contact Info) Description 07/07/2024 11:00 AM EDT Office Visit Cardiology at [address] [phone] Lorena Lawrence MD [facility] [place] [address] documented as of this encounter Visit Diagnoses Not on filedocumented in this encounter Care Teams Semiconductors Wafer Breaker Relationship Specialty Start Date End Date Henrietta Null MD [facility] [address] [place] [address] PCP - General General Internal Medicine 10/03/2003/31 documented as of this encounter
--- OUTSIDE RECORDS SUMMARY | 2024-04-23 12:13 | XMS_ITS | Encounter Summary ---
Author Organization [facility] [place] [address] Care Team Providers Care Perioperative Educator Name Role Phone Henrietta Null MD Primary Care Provider [phone] Reason for Visit * Reason Onset Date Comments New Medication Request 11/01/2021 Encounter Details Date Type Department Care Team (Late st Contact Info) Description 11/01/2021 Telephone Internal Medicine at [address] [phone] Henrietta Null MD [facility] [place] [address] New Medication Request Social History Tobacco Use Types Packs/Day Years [...] Telephone Encounter - Henrietta Null MD - 11/01/2021 12:10 PM EST Note from Dr. Pena reviewed. Patient previously taking flonase. He recommended trial of atrovent.Will call that in for patient. * Telephone Encounter - Dustin Edwardsa J - 11/01/2021 10:10 AM EST Please remind every patient that prescription requests can take up to 72 business hours to process PLEASE REMEBER TO CHECK IF ANY REFILLS MAY BE REMAINING AT THE PHARMACY Medication Refill Request: Patient stated that Dr. Pena suggested a nasal spray if the nasal spray didn't work. Patient doesn't remember what medication Dr. Pena Mentioned. Patient was seen by Dr. Pena on 10/23/21, for a chronic cough which still isn't better. Name of Medication: unknown Dose as Prescribed: unknown How many days left: x Prescriber: Dr. Pena Pharmacy Name & Location: [facility] Caller would like clinic to reach out to the Pharmacy: yes Patient declined scheduling an appointment: n/a Ask caller their first and last name and relationship to the patient: Heike Ramires Best time to call back: within next 2 hours Ok to leave a message: yes Ok to send [facility] message: n/a Did you contact your pharmacy: no documented in this encounter Plan of Treatment Upcoming Encounters Date Type Department Care Team (Late st Contact Info) Description 07/07/2024 11:00 AM EDT Office Visit Cardiology at [address] [place] [address] Lorena Lawrence MD [facility] [place] [address] documented as of this encounter Visit Diagnoses Not on filedocumented in this encounter Care Teams Perioperative Educator Relationship Specialty Start Date End Date Henrietta Null MD [facility] [place] [address] PCP - General General Internal Medicine 10/03/20 7/ documented as of this encounter
--- OUTSIDE RECORDS SUMMARY | 2024-04-23 12:13 | XMS_ITS | Encounter Summary ---
Author Organization [facility] Address [facility] [place] [address] Care Team Providers Care Cold Meat Cook Name Role Phone Tika Simental APRN Primary Care Provider [phone] Encounter Details Date Type Department Care Team (Latest Contact Info) Description 01/20/2024 Travel Social History Tobacco Use Types Packs/Day [...] AM EDT Office Visit Cardiology at [address] [place] [address] Lorena Lawrence MD [facility] [place] [address] documented as of this encounter Visit Diagnoses Not on filedocumented in this encounter Care Teams Cold Meat Cook Relationship Specialty Start Date End Date Tika Simental APRN Claudio [place] [address] PCP - General Family Medicine 04/28/23 documented as of this encounter
--- OUTSIDE RECORDS SUMMARY | 2024-04-23 12:13 | XMS_ITS | Encounter Summary ---
Author Organization [facility] [place] [address] Care Team Providers Care Sludge Control Operator Name Role Phone Henrietta Null MD Primary Care Provider [phone] Encounter Details Date Type Department Care Team (Late st Contact Info) Description 02/11/2022 Telephone Internal Medicine at [address] [address] Bruna Ly, RN Social History Tobacco Use Types Packs/Day [...] encounter Miscellaneous Notes * Telephone Encounter - Bruna Ly RN - 02/11/2022 2:07 PM EDTSummary: EMILIA Burroughs Stung by a white faced wasp and her left foot is swelling and she took a Benadryl, but it is still swelling. She states that the swelling is nursing home up my foot. The Benadryl Heike had taken was a25mg capsule. Asked her to take another cpsule to equal 50mg total and since the swelling was not stopping she would have to go to the [place] urgent care at [facility]. Asked her to have someone drive her she stated. I can drive myself, I'll be careful. documented in this encounter Plan of Treatment Upcoming Encounters Date Type Department Care Team (Late st Contact Info) Description 07/07/2024 11:00 AM EDT Office Visit Cardiology at [address] [facility] [place] [address] Lorena Lawrence MD [facility] [place] [address] documented as of this encounter Visit Diagnoses Not on filedocumented in this encounter Care Teams Sludge Control Operator Relationship Specialty Start Date End Date Henrietta Null MD [facility] [address] [address] PCP - General General Internal Medicine 10/03/2003/31 documented as of this encounter
--- OUTSIDE RECORDS SUMMARY | 2024-04-23 12:13 | XMS_ITS | Encounter Summary ---
Author Organization [facility] [place] [address] Care Team Providers Care Events Assistant Name Role Phone Henrietta Null MD Primary Care Provider [phone] Reason for Visit * Reason Onset Date Comments Other 02/27/2022 Encounter Details Date Type Department Care Team (Late st Contact Info) Description 02/27/2022 Telephone Internal Medicine at [address] [phone] Henrietta Null MD [facility] [place] [address] Other Social History Tobacco Use Types Packs/Day Years [...] Miscellaneous Notes * Telephone Encounter - María Gao - 02/28/2022 11:38 AM EDT Heike is returning this call. * Telephone Encounter - Rosa Shook RN - 02/28/2022 10:36 AM EDT Phoned patient back, no answer, left message asking for call back * Telephone Encounter - Kimberly Manzo - 02/28/2022 10:10 AM EDT Patient returned call. This agent was unable to reach nurse at time of call. Please call to assist. * Telephone Encounter - Rosa Shook RN - 02/28/2022 9:40 AM EDT Phoned patient, no answer, left message on identified voice mail, reviewed CBC labs for past 9-10 years and all WNL * Telephone Encounter - Lucia Worrell - 02/27/2022 4:05 PM EDT Message: Heike, patient, called in to find out if she may have any issues with low platelets. Sheis inquiring for her daughter's out of town/network physician to see if there are any signs of a hereditary issue before they perform a bone marrow procedure. Please return call to assist. Ask caller their first and last name and relationship to the patient: selfHeike Best time to call back: any Ok to leave a message: y Ok to send my- message: n Offered Appointment: n/a MA/Nurse/[place] contacted via: Message: y Call: n Pager: n documented in this encounter Plan of Treatment Upcoming Encounters Date Type Department Care Team (Late st Contact Info) Description 07/07/2024 11:00 AM EDT Office Visit Cardiology at [address] [address] Lorena Lawrence MD [facility] [place] [address] documented as of this encounter Visit Diagnoses Not on filedocumented in this encounter Care Teams Events Assistant Relationship Specialty Start Date End Date Henrietta Null MD [facility] [place] [address] PCP - General General Internal Medicine 10/03/2003/31 documented as of this encounter
--- OUTSIDE RECORDS SUMMARY | 2024-04-23 12:13 | XMS_ITS | Encounter Summary ---
Author Organization [facility] [place] [address] Care Team Providers Care Fish Cake Maker Name Role Phone Henrietta Null MD Primary Care Provider [phone] Reason for Visit * Reason Onset Date Comments Other 11/01/2021 requesting xray Encounter Details Date Type Department Care Team (Late st Contact Info) Description 11/01/2021 Telephone Internal Medicine at [address] [address] Henrietta Null MD [facility] [place] [address] Other (requesting xray) Social History Tobacco Use Types Packs/Day Years [...] Telephone Encounter - Henrietta Null MD - 11/02/2021 4:59 PM EST Phone call to pt with results of xrays which showed no evidence of rib fracture. cxr notable for some streaking at L base atelectasis vs scarring (by my read similar to past film). Continues to have pain x 3 weeks after snapping sound in rib. Has tried aleve and ibuprofen. Recommended she try 1000 bid of tylenol. She reports cough better but still present since using atrovent nasal spray. Pt to f/up in 3 days after the weekend. * Telephone Encounter - Linnea Hinson - 11/01/2021 1:04 PM EST Patient is calling back asking to be scheduled with [facility] for her Xray. Patient stated that Friday and fridays work best for her. * Telephone Encounter - Sandy Edwards - 11/01/2021 10:07 AM EST Requested test or order: Patient states she would like an xray done. She thinks she may have heard a pop couple weeks ago in her rib area and pain is getting worse. Reason requesting test or order: xray Date patient wants to come in: as soon as possible Location where patient wants it to be performed (if an outside facility, please include name of facility and phone/fax number): [facility] Caller and relationship (if other than patient-full name): Heike Ramires Best time to call back: any Ok to leave a message: yes Ok to send - message n/a documented in this encounter Plan of Treatment Upcoming Encounters Date Type Department Care Team (Late st Contact Info) Description 07/07/2024 11:00 AM EDT Office Visit Cardiology at [address] [place] [address] Lorena Lawrence MD [facility] [place] [address] documented as of this encounter Results * XR Ribs Right [...] who have questions please contact the health home care liaison that requested your imaging first. ? Narrative 11/02/2021 2:12 PM EST EXAMINATION: XR [...] patients who have questions please contactthe health home care liaison that requested your imaging first. Henrietta Null MD IMG DX ORDERABLES * XR Chest PA & Lateral (Generic) [...] who have questions please contact the health home care liaison that requested your imaging first. ? Narrative 11/02/2021 2:12 PM EST EXAMINATION: XR [...] patients who have questions please contactthe health home care liaison that requested your imaging first. Henrietta Null MD IMG DX ORDERABLES documented in this encounter Visit Diagnoses Diagnosis Rib pain on right side Chest pain, unspecified Chronic cough Cough Rib pain on right side Chest pain, unspecified Chronic cough Cough documented in this encounter Care Teams Fish Cake Maker Relationship Specialty Start Date End Date Henrietta Null MD [facility] [place] [address] PCP - General General Internal Medicine 10/03/2003/31 documented as of this encounter
--- OUTSIDE RECORDS SUMMARY | 2024-04-23 12:13 | XMS_ITS | Encounter Summary ---
Author Organization [facility] [place] [address] Care Team Providers Care Clinical Informaticist Name Role Phone Henrietta Null MD Primary Care Provider [phone] Reason for Referral * Diagnostic Test (Routine) - Closed Specialty Diagnoses / Procedures Referred By Evelio mathis Referred To Contact Radiology Diagnoses Encounter for screening mammogram for breast cancer Procedures Mammo Screening Cad and Renan Bilateral Henrietta Null MD [facility] [place] [address] [facility] [place] [address] Referral ID Status Reason Start Date Expiration Date V isits Requested Visits Authorized [id number] Closed Specialty Service Requested 07/02/2021 12/31/2022 1 1 Reason for Visit * Diagnostic Test (Routine) - Closed Specialty Diagnoses / Procedures Referred By Evelio mathis Referred To Contact Radiology Diagnoses Encounter for screening mammogram for breast cancer Procedures Mammo Screening Cad and Renan Bilateral Henrietta Null MD [facility] [place] [address] [facility] [place] [address] Referral ID Status Reason Start Date Expiration Date V isits Requested Visits Authorized [id number] Closed Specialty Service Requested 07/02/2021 12/31/2022 1 1 Encounter Details Date Type Department Care Team (Latest Contact Info) Description 08/10/2021 7:22 AM EST - 08/10/2021 11:59 PM EST Hospital Encounter Mammography/[place] [address] Henrietta Null MD [facility] [place] [address] Encounter for screening mammogram for breast cancer Discharge Disposition: Home Social History Tobacco Use [...] Take 1 tablet by mouth daily. 01/10/2012 furosemide (Lasix) 20 mg TabletIndications:Stress -induced cardiomyopathy,Congestiv [...] AM EDT Office Visit Cardiology at [address] [place] [phone] Lorena Lawrence MD [facility] [place] [address] documented as of this encounter Procedures Procedure Name Priority Date/Time Associated Diagnosis Comments MAMMO SCREENING CAD AND RENAN BILATERAL Routine 08/10/2021 7:36 AM EST Encounter for screening mammogram for breast cancer documented in this encounter Results * Mammo Screening Cad and Renan Bilateral (08/10/2021 7:36 AM EST) Anatomical Region Laterality Modality Breast Bilateral Mammography Narrative 08/10/2021 10:29 AM EST BILATERAL MAMMOGRAPHY REASON FOR EXAM: Screening TECHNIQUE: CC and MLO views were obtained of each breast using standard 2-D mammography as well as 3-D tomosynthesis. Computer aided detection was used. This is compared with prior images. FINDINGS: There are scattered areas of fibroglandular density. There are no suspicious microcalcifications, masses, or areas of distortion. The pattern is stable. CONCLUSION: No mammographic evidence of malignancy. RECOMMENDATION: Regular screening mammograms starting between age 40 and 50 reduces the risk of from breast cancer. All screening tests have both risks and benefits. These risks and benefits should be assessed for each individual patient through discussion with their provider to determine their preferred breast cancer screening schedule. Women should report any breast changes to a health care provider right away. Some women, because of their family history, a genetic tendency, or other factors, should be screened with annual breast MRI as well as with mammograms. (The number of women who fall into this category is very small). Patients and health care providers should discuss each patient? s history to decide if earlier screening and/or breast MRI are appropriate. Screening should continue as long as a woman is in good health and is expected to live 10 years or longer. Screening mammography may not detect 10-15% of breast cancers. A result letter has been sent to this patient by the [facility]. BIRADS CATEGORY 1: NEGATIVE Electronically signed by: Poonam Purcell MD Henrietta Null MD IMG MAMMO ORDERABLES documented in this encounter Visit Diagnoses Diagnosis Encounter for screening mammogram for breast cancer documented in this encounter Care Teams Clinical Informaticist Relationship Specialty Start Date End Date Henrietta Null MD [facility] [place] [address] PCP - General General Internal Medicine 10/03/2003/31 documented as of this encounter
--- OUTSIDE RECORDS SUMMARY | 2024-04-23 12:13 | XMS_ITS | Encounter Summary ---
Author Organization [facility] [place] [address] Care Team Providers Care Funeral Director Name Role Phone Henrietta Null MD Primary Care Provider [phone] Reason for Visit * Reason Comments Medication Refill Encounter Details Date Type Department Care Team (Late st Contact Info) Description 11/28/2021 Refill Internal Medicine at [address] [address] Henrietta Null MD [facility] [place] [address] Social History Tobacco Use Types Packs/Day Years [...] 11:00 AM EDT Office Visit Cardiology at [address] [address] Lorena Lawrence [place] [address] documented as of this encounter Visit Diagnoses Not on filedocumented in this encounter Care Teams Funeral Director Relationship Specialty Start Date End Date Henrietta Null MD [facility] [place] [address] PCP - General General Internal Medicine 10/03/2003/31 documented as of this encounter
--- OUTSIDE RECORDS SUMMARY | 2024-04-23 12:13 | XMS_ITS | Clinical Summary ---
Author Organization [facility] Address [facility] [place] [address] Care Team Providers Care Dry Mop Maker Name Role Phone Tika Simental APRN Primary Care Provider [phone] Allergies Active Allergy Reactions Criticality Noted Date Comments Bee Pollen 06/01/2021 White face hornets, Codeine Phosphate Low stomach ache Methadone Hcl Medium headaches Morphine Sulfate Nausea And Vomiting Medium Oxidized Glycerol Triesters Medium headache Oxycodone Hcl Medium severe headaches Medications Medication Sig Dispensed Refills Start Date End Date Status CALCIUM LACTATE ORAL Take 1 tablet by mouth daily. Active INOSITOL ORAL Take 2 tablets by mouth 2 times daily. Active cholecalciferol, Vitamin D3, (VITAMIN D) 1,000 unit Tab tabletIndications:Os teopenia Take 1 tablet by mouth daily. 01/10/2012 Active UNABLE TO FIND Probiotic Daily 50 billion cell, One daily Active EPINEPHrine 0.3 mg/0.3 mL Auto-InjectorIndicat ions:Allergic reaction, subsequent encounter Inject 0.3 mL IM once as needed for allergic reaction (Throat tight, difficulty breathing). Call 911 as directed. 1 kit 02/18/2022 Active fexofenadine (Naima) 60 mg Tablet Take 60 mg by mouth daily. Active fluticasone propionate (Flonase) 50 mcg/actuation [place], Suspension 2 sprays by Each Nare route 2 times daily. 9.9 g 10/17/2022 Active albuteroL (ACCUNEB) 1.25 mg/3 mL Solution for NebulizationIndicati ons:Intermittent asthma with acute exacerbation, unspecified asthma severity Take 3 mLs by nebulization every 6 hours as needed for Wheezing. 75 mL 12 11/11/2022 Active TEGretoL 200 mg tablet Take 200 mg by mouth 3 times daily as needed. 05/02/2023 Active metoprolol succinate XL (Toprol-XL) 25 mg ER 24 hr tabletIndications:St ress-induced cardiomyopathy Take 1 tablet by mouth daily. 90 tablet 3 07/14/2023 Active furosemide (Lasix) 20 mg tabletIndications:St ress-induced cardiomyopathy,Conge stive heart failure, unspecified HF chronicity, unspecified heart failure type Take 1 tablet by mouth every other day. 45 tablet 3 07/16/2023 Active budesonide (Pulmicort) 0.5 mg/2 mL Suspension for Nebulization 0.5 mg (2 mL) inhaled daily via nebulizer 08/14/2023 Active fluorouraciL (EFUDEX) 5 % CreamIndications:AK (actinic keratosis) Apply a thin layer to affected areas on the nose twice daily (morning and night) as tolerated for 3 weeks. Wash hands after each use. Keep out of reach of pets. 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 EF 56% Skin lesion of hand 04/29/2012 Nevus, atypical - foot 04/22/2012 Trigger fingers, left thumb and ring, right ring 02/06/2012 Ovarian fibroma 01/08/2011 Osteoporosis 01/08/2011 Overview (04/19/2017): On drug holiday, no change in bone density on 04/14 DEXA scan, lowes -3.2 in spine >-2.5 in hip. Trigeminal neuralgia 01/08/2011 Overview (01/27/2015): Taking inositol daily and tapering down on her tegretol. Resolved Problems Problem Noted Date Diagnosed Date Resolved Date Hypoxia 12/15/2017 12/19/2017 Other specified aftercare following surgery 05/13/2012 07/03/2022 Preventative health care 01/10/201201/2022 Overview (01/27/2015): DT: Tdap 12/13/08 (from scanned pcp records in [facility]) Pneumovax: 2009 Influenza:2012 Shingles: 2011 Cigarettes: none Alcohol: none Caffeine:little Exercise: active in job, treadmill / Seat Belts: consistent Helmets:consistent Cholesterol (Total/HDL/LDL): Lab Results Component Value Date CHLPL 260* 01/28/2014 HDL 64 01/28/2014 TRIG 114 01/28/2014 LDLCHOL 173* 01/28/2014 Diabetes Screenin2013 Optho Screening: recent Calcium/Vitamin D: adequate Colon Cancer Screening: Colonoscopy 03/12 + [facility] Osteoporosis Screening: Dexa 2012, lowest - 3.1 spine, hip within osteopenic range Breast Cancer Screening: Mammogram 01/10 neg Self Breast Exam: Yes Cervical Cancer Screening: Pap smear 11/2008, never with abnl Sexual History: not sexually active Control:n/a HIV Status: unknown Advanced Directives: No Immunizations Name Administration Dates Next Due Covid-19 (Pfizer), Lomeli Cap Bivalent 30mcg (12Yrs+) 06/28/2022 Influenza (Fluzone HD) Triva lent High Dose 06/29/2021,08/08/2019,10/15/2017,07/19 Influenza Adjunated (FluAd) Trivalent, PF 65yrs+ 06/26/2018 Influenza PF, Split 06/19/2016,06/29/2015,2013 Influenza Quadrivalent (FluA d) Adjuvanted 07/03/2020 Influenza Quadrivalent, Pres ervative Free 07/29/2020 Influenza Trivalent w/Preservative 10/03/2012 Influenza Vaccine, Whole 06/29/2010,05/30/2009,1 10/16/2005 Moderna Covid-19 Monovalent 12Yr+ (Caddy Master 100mcg) 02/20/2022,08/10/2021,11/24/2020,10/26 Pneumococcal Conjugate (Prevnar 13) 01/27/2015 Pneumococcal Polysaccharide (Pneumovax 23) 06/29/2010 Td Adult, Absorbed, Preservative Free 09/17/2019 Tdap 12/13/2008 Zoster (Zostavax) LIVE 01/13/2012 Family History Medical History Relation Comments Abdominal Aortic Aneurysm Father Aneurysm Father cerebral aneurys m Lupus Mother Colorectal Cancer Sister 4 Pancreatic Cancer Sister 5 ?pancreatic du ct CA Chronic Obstructive Pulmonary Disease Sister 6 * Sister 7 diverticulitis Breast Cancer Neg Hx Relation Status Comments Brother trauma, etoh-rel ated Father (Age 88) cerebral aneur ysm, AAA Mother (Age 40) SLE Sister 1 Alive Sister 2 Alive Sister 3 Alive Sister 4 Sister 5 Sister 6 Sister 7 Social History Tobacco Use Types Packs/Day Years Used Date Smoking Tobacco: Never Smokeless Tobacco: Never Alcohol Use Standard Drinks/Week Comments No 0 (1 standard drink = 0.6 oz pur e alcohol) Sex and Gender Information Value Date Recorded Sex Assigned at Not on file Gender Identity Not on file Sexual Orientation Not on file Last Filed Vital Signs Vital Sign Reading Time Taken Comments Blood Pressure 114/57 07/02/2023 3:47 PM EDT Pulse 63 07/02/2023 3:47 PM EDT per e cg Temperature 36.5 ??C (97.7 ??F) 11/11/2022 12:[address] took aspirin Respiratory Rate 16 11/11/2022 12:58 PM EST Oxygen Saturation 98% 11/11/2022 12:58 PM EST Inhaled Oxygen Concentration - - Weight 52.6 kg (116 lb) 07/02/2023 3:47 PM EDT Height 148.6 cm (4' 10.5) 07/02/2023 3:47 PM ED T Body Mass Index 23.83 07/02/2023 3:47 PM EDT Plan of Treatment Upcoming Encounters Date Type Department Care Team (Late st Contact Info) Description 07/07/2024 11:00 AM EDT Office Visit Cardiology at [address] [address] Lorena Lawrence MD [facility] [place] [address] Health Maintenance Due Date Last Done Comments Zoster vaccine (2 of 3) 03/09/2012 01/13/2012 Covid-19 Vaccine (2022-2 4 season) 2023 06/28/2022, 02/20/2022, 08/10/2021, Additional history exists Influenza (Flu) vaccine (1 o f 1 - Influenza standard series) 05/30/2024 06/29/2021, 07/29/2020, 07/03/2020, Additional history exists Tetanus vaccine 09/17/2029 09/17/2019, 12/13/2008 Bone Density Scan 10/26/2034 10/26/2019, , 02/06/2015, Additional history exists Tdap adult Completed 12/13/2008 Colonoscopy Discontinued 03/21/2014, 02/28, 01/27/2009 (Outside per patient (enter details in comments)), Additional history exists Sigmoidoscopy (10 year) with FIT yearly Discontinued 03/21/2014, 03/21/2014 Pneumoccocal Vaccine: 65+ Completed 01/27/2015, 09/2009 Colorectal Cancer Screening Discontinued FIT Discontinued 10/17/2020 Hepatitis C Screening Completed 10/17/2020 Breast Cancer screening Discontinued 08/10/20, 05/07/2019, 05/22/2018, Additional history exists CT Colonography Discontinued FIT DNA Discontinued Sigmoidoscopy Discontinued Procedures Procedure Name Priority Date/Time Associated Diagnosis Comments MAMMO SCREENING CAD AND PAWEL BILATERAL Routine 08/10/2021 7:36 AM EST Encounter for screening mammogram for breast cancer HC IFOB (FIT) FECAL BLOOD HEMOGLOBIN; 1-3 DETERMINATIONS Routine 10/17/2020 1:50 PM EST Screening for colon cancer HC VENIPUNCTURE Routine 10/17/2020 9:54 AM EST Need for hepatitis C screening test DXA CENTRAL SPINE, HIP, AND/OR WHOLE BODY (GENERIC) Routine 10/26/2019 8:19 AM EST Osteoporosis, unspecified osteoporosis type, unspecified pathological fracture presence COLONOSCOPY Routine 03/21/2014 10:10 AM EDT from Last 3 Months or Most Recently Relevant to Health Maintenance Results * Mammo Screening Cad and Pawel Bilateral (08/10/2021 7:36 AM EST) Anatomical Region [...] MD Henrietta Null MD IMG MAMMO ORDERABLES * Fecal Occult Blood, Immunoassay (10/17/2020 1:50 PM EST) Fecal Occult Blood, Immunoassay Negative Negative [facility] Stool specimen (specimen) 10/17/2020 1:50 PM EST 10/27/2020 8:21 AM EST Narrative Resulting Agency Comment Spec In Lab Henrietta Null MD BODY FLUIDS AND STOO LS ORDERABLES [facility] [place] [address] * Hepatitis C Antibody (10/17/2020 9:54 AM EST) Hepatitis C Ab Negative Negative [facility] Blood specimen (specimen) 10/17/2020 9:54 AM EST 10/17/2020 10:05 AM EST Narrative Resulting Agency Comment Spec In Lab Henrietta Null MD IMMUNOLOGY ORDERABLE S [facility] [place] [address] * DXA Central Spine, Hip, and/or Whole Body (Generic) (10/26/2019 8:19 AM EST) Anatomical Region Laterality Modality C-spine, Hip N/A Other Impressions 10/28/2019 9:11 AM EST The small change of BMD is insignificant and represents normal variation since it is within or less than the calculated precision error or Least Significant Change . The measurements fulfill the WHO classification for osteoporosis and there is no significant change. Findings indicate response to treatment without significant increase in BMD measurements. The FRAX tool may not be accurate in fracture prediction after osteoporosis pharmacotherapy. DEXA data sheets with BMD measurements and plots are available in [employer] under the imaging tab. Paper copies will be sent to providers without [employer] access. If you have received this report without the data sheet and do not have access to [facility], please contact Radiology [facility] at [phone] Friday thru Friday 8am-4pm. Thank you for letting us participate in the care of this patient. For questions regarding this report, please contact the number below. ? Electronically signed by: Olivia Alexander [facility] ([phone]), at 10/28/2019 9:11 AM Narrative 10/28/2019 9:11 AM EST EXAMINATION: DXA CENTRAL SPINE, HIP, AND/OR WHOLE BODY (GENERIC) CLINICAL HISTORY: osteoporosis s/p treatment, ,entered by ordering service TECHNIQUE: Scans were acquired at the lumbar spine, and left hip. FINDINGS: Femoral neck BMD: 0.599 ? g/cm2 Lowest T-score at the diagnostic region of interest: T-score: -3.2, TREASURE: Lumbar spine, WHO diagnosis: Osteoporosis. ......... Comparison......... Previous scan:2017 Total spine: Compared to the previous, 1 % change. Total hip: Compared to the previous scan, -1 % change. Procedure Note Olivia Alexander MD - 10/28/2019 EXAMINATION: DXA CENTRAL SPINE, HIP, AND/OR WHOLE BODY (GENERIC) CLINICAL HISTORY: osteoporosis s/p treatment, ,entered by orderingservice TECHNIQUE: Scans were acquired at the lumbar spine, and left hip. FINDINGS: Femoral neck BMD: 0.599 g/cm2 Lowest T-score at the diagnostic region of interest: T-score: -3.2, TREASURE: Lumbar spine, WHO diagnosis: Osteoporosis. ......... Comparison......... Previous scan:2017 Total spine: Compared to the previous, 1 % change. Total hip: Compared to the previous scan, -1 % change. IMPRESSION The small change of BMD is insignificant and represents normal variationsince it is within or less than the calculated precision error or LeastSignificant Change . The measurements fulfill the WHO classification for osteoporosis and thereis no significant change. Findings indicate response to treatment without significant increase inBMD measurements. The FRAX tool may not be accurate in fracture prediction afterosteoporosis pharmacotherapy. DEXA data sheets with BMD measurements and plots are available in [employer] the imaging tab. Paper copies will be sent to providers without - access.If you have received this report without the data sheet and do not haveaccess to [employer], please contact [facility] at [phone] Friday thruFriday 8am-4pm. Thank you for letting us participate in the care of this patient. Forquestions regarding this report, please contact the number below. Henrietta Null MD IMG DEXA ORDERABLES * COLONOSCOPY (03/21/2014 10:10 AM EDT) Pathologist [facility] COLONOSCOPY [facility] Patient Name: Heike Ramires ? Procedure Date: 03/21/2014 10:10 AM ? Date of : 1945 ? Age: 69 ? Order #: [id number] ? Procedure: ? Colonoscopy Indications: ? Screening in patient at increased ? risk: Colorectal cancer in two ? sisters, possibly before age 60 (pt ? notes 50s or 60s for both) Patient Profile: ? s/p ovarian fibroma, trigeminal ? neuralgia Providers: ? Yareli Talley MD, Marsha Ryan ? Sudeep, TUSHAR, Nicholas Kenny, ? Clothing Consultant Referring MD: ?Henrietta Null MD Medicines: ? Midazolam 3.5 mg IV, Fentanyl 150 ? micrograms IV Complications: ? No immediate complications. Procedure: ? Pre-Anesthesia Assessment: ? - Prior to the procedure, a History ? and Physical was performed, and ? patient medications, allergies and ? sensitivities were reviewed. The ? patient's tolerance of previous ? anesthesia was reviewed. ? - The risks and benefits of the ? procedure and the sedation options ? and risks were discussed with the ? patient. All questions were answered ? and informed consent was obtained. ? - Airway Examination: normal ? oropharyngeal airway and neck ? mobility. ? - Respiratory Examination: clear to ? auscultation. ? - CV Examination: normal. ? - ASA Grade Assessment: II - A ? patient with mild systemic disease. ? - After reviewing the risks and ? benefits, the patient was deemed in ? satisfactory condition to undergo the ? procedure. ? - The anesthesia plan was to use ? moderate sedation/analgesia ? (conscious sedation). ? - Immediately prior to administration ? of medications, the patient was ? re-assessed for adequacy to receive ? sedatives. ? - Sedation was administered by an ? endoscopy nurse. The sedation level ? attained was moderate. ? - The heart rate, respiratory rate, ? oxygen saturations, blood pressure, ? adequacy of pulmonary ventilation, ? and response to care were monitored ? throughout the procedure. ? - The physical status of the patient ? was re-assessed after the procedure. ? The procedure, indications, benefits, ? risks and alternatives were explained ? to the patient. Specifically ? discussed were potential ? complications including, but not ? limited to, bleeding, perforation, ? infection, missing a cancer, and ? adverse medication reactions. The ? patient was placed in the left ? lateral decubitus position, and a ? digital rectal exam was performed. ? The Colonoscope was inserted in the ? anus and under direct visualization, ? advanced to the terminal ileum, with ? identification of the appendiceal ? orifice and IC valve. Careful ? inspection was made as the ? colonoscope was withdrawn. The ? quality of the bowel preparation was ? good. ? Findings: ? A benign appearing sessile polyp was found in the ? rectum. The polyp was 4 mm in size. The polyp was ? removed with a cold snare. Resection and retrieval ? were complete. Estimated blood loss was minimal. ? Estimated blood loss was minimal. ? Impression: ?- One benign appearing 4 mm polyp in ? the rectum. Resected and retrieved. Recommendation: ?- If the pathology report reveals ? adenomatous tissue, then repeat the ? colonoscopy for surveillance in 5 ? years. Also per FHx ? - Return to primary care physician. ? _ Yareli Talley MD 03/21/2014 11:03 AM This report has been signed electronically. Number of Addenda: 0 Note Initiated On: 03/21/2014 10:10 AM PROVATION 03/21/2014 10:1 0 AM EDT Henrietta Null MD GENERAL SURGICAL ORD ERABLES PROVATION from Last 3 Months or Most Recently Relevant to Health Maintenance Advance Directives Documents on File Type Date Recorded Patient Tool Lapper Hand Expl pepper Advance Directives and Juventino alejandro Will 01/07/2011 8:24 AM * Full Code (Latest Code Status on File) Date Activated Date Inactivated Comments 01/06/2020 12:46 PM 01/08/2020 3:43 PM Question Answer Comments Does patient have capacity to make decision: Yes * Full Code Date Activated Date Inactivated Comments 12/15/2017 12:51 AM 12/15/2017 3:34 PM Question Answer Comments Does patient have capacity to make decision: Yes * Full Code Date Activated Date Inactivated Comments 01/08/2011 9:57 AM 12/15/2017 12:51 AM Question Answer Comments Does patient have decision m aking capacity? Yes, Order is based on Patients wishes. * Full Code Date Activated Date Inactivated Comments 01/07/2011 9:47 AM 01/08/2011 9:57 AM Question Answer Comments Order Status: Initial Order Does patient have decision m aking capacity? Yes, Order is based on Patients wishes. * Full Code Date Activated Date Inactivated Comments 01/07/2011 7:07 AM 01/07/2011 9:47 AM Question Answer Comments Order Status: Initial Order Does patient have decision m aking capacity? Yes, Order is based on Patients wishes. Healthcare Agents on File Name Relationship Healthcare Agent Relationship Communication Imelda Quan Child Health Care Agent [email or web address] Care Teams Dry Mop Maker Relationship Specialty Start Date End Date [place] [address] PCP - General Family Medicine 04/28/23
--- OUTSIDE RECORDS SUMMARY | 2024-04-23 12:13 | XMS_ITS | Encounter Summary ---
Author Organization [facility] [place] [address] Care Team Providers Care Animal Feeder Name Role Phone Henrietta Null MD Primary Care Provider [phone] Encounter Details Date Type Department Care Team (Late st Contact Info) Description 02/17/2023 Telephone Cardiology at [address] [place] [address] Lorena Lawrence [facility] [place] [address] Social History Tobacco Use Types Packs/Day Years [...] encounter Miscellaneous Notes * Telephone Encounter - Melany Solis RN - 02/17/2023 2:23 PM EDT Pharmacy updated * Telephone Encounter - Amita Norwood - 02/17/2023 1:31 PM EDT Patient called to say that the [facility] in [place] has closed. She is now using the [facility] at the [facility] in [place]. Please call her @ [phone] if you have questions. documented in this encounter Plan of Treatment Upcoming Encounters Date Type Department Care Team (Late st Contact Info) Description 07/07/2024 11:00 AM EDT Office Visit Cardiology at [address] [place] [address] Lorena Lawrence MD [facility] [place] [address] documented as of this encounter Visit Diagnoses Not on filedocumented in this encounter Care Teams Animal Feeder Relationship Specialty Start Date End Date Henrietta Null MD [facility] [address] [place] [address] PCP - General General Internal Medicine 10/03/20/ documented as of this encounter
--- OUTSIDE RECORDS SUMMARY | 2024-04-23 12:13 | XMS_ITS | Encounter Summary ---
Author Organization Formerly [facility] [place] [address] Care Team Providers Care Chisel Grinder Name Role Phone Henrietta Null MD Primary Care Provider [phone] Reason for Visit * Reason Comments Cough NEG covid, bronchiti s, [facility], was given prednisone (felt better while taking) but the cough started back up again. SOB, wheezing when going up stairs, dry cough Encounter Details Date Type Department Care Team (Late st Contact Info) Description 10/17/2022 10:30 AM EST Office Visit Internal Medicine at [address] [phone] Maribeth Khan MD [facility] [place] [address] Viral bronchitis Social History Tobacco Use Types Packs/Day Years [...] Sign Reading Time Taken Comments Blood Pressure 144/49 10/17/2022 10:25 AM EST Pulse 54 10/17/2022 10:25 AM EST Temperature 36.3 ??C (97.3 ??F) 10/17/2022 10:[address] Respiratory Rate 16 10/17/2022 10:25 AM EST Oxygen Saturation 100% 10/17/2022 10:25 AM EST Inhaled Oxygen Concentration - - Weight 52.6 kg (116 lb) 10/17/2022 10:25 AM EST Height 146.1 cm (4' 9.52) 10/17/2022 10:[address] reported Body Mass Index 24.65 10/17/2022 10:25 AM EST documented in this encounter Patient Instructions * Patient Instructions* Maribeth Khan MD - 10/17/2022 10:30 AM EST Stay hydrated and rest. If possible you should take off work for the next week and allow your body to rest. You can take Dayquil. Be mindful of the medications in these brand name medicines. You can take the Dayquil as frequently as the bottle says. Continue to use hot teas, soups. You can use the nasal spray twice daily. You can go back to twice per day with the inhaler You can monitor your blood pressure and oxygen 1 time per day. If you notice your oxygen level dropping below 88% you should seek care Reasons to return to clinic or the Emergency Department: You start to develop fevers, chills, worsening shortness of breath * Attachments The following attachments cannot be sent through Care Everywhere. * URI (Upper Respiratory Infection): Viral (Grenadian) documented in this encounter Progress Notes * Maribeth Khan MD - 10/17/2022 10:30 AM EST Subjective: Patient ID: Heike Ramires is a 77 y.o. female mild obstructive who presents with cough. Patient was evaluated at [facility] 1 week ago. COVID negative. She was diagnosed with URI and given a course of oral prednisone which improved her symptoms initially. Symptoms resumed 1.5 daysafter completion of steroids. Heike describes symptom onset about 2 days before going to [facility]. Started with a productive cough with brown-yellow sputum. Generalized weakness and fatigue. Shortness of breath sometimes at restbut worse with movement, especially going up stairs. Appetite reduced. No change to smell or taste.Post nasal drip with rhinorrhea. Some bilateral frontal headache. No thick nasal drainage. Some watery eyes. Symptoms feel exactly the same as they did prior to steroid course. She did take a Dayquil yesterday Which improved her symptoms. 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 Trying to drink green tea, hot soups. Her inhaler has not been helpful. Also using vaporizer in the home. Using cough drops. Not using nasal spray. Had another Negative COVID this morning. Lives alone and no known sick contacts. Hx of seasonal post nasal drip responsive to Flonase. Chief Complaint Patient presents with ??? Cough NEG covid, bronchitis, [facility], was given prednisone (felt better while taking) but the cough started back up again. SOB, wheezing when going up stairs, dry cough Objective: BP 144/49 (BP Location (NBP): Left arm, Patient Position: Sitting, BP Cuff Sizes: Adult (25-34 cm)) Pulse 54 Temp 36.3 ??C (97.3 ??F) (Temporal) Resp 16 Ht 146.1 cm (4' 9.52) Comment: reported Wt 52.6 kg (116 lb) SpO2 100% BMI 24.65 kg/m?? Patient reported measures: Pain: Physical Health: Fall: PHQ-9 QUESTIONNAIRE SCORE ONLY (AMB) 05/26/2015 PHQ - 9 Score (Clinic) 0 (No Depression) Some recent data might be hidden Wt Readings from Last 3 Encounters: 10/17/22 52.6 kg (116 lb) 07/03/22 52.2 kg (115 lb) 02/18/22 53 kg (116 lb 12.8 oz) Physical Exam Vitals reviewed. Constitutional: General: She is awake. She is not in acute distress. Appearance: She is well-groomed and normal weight. She is not toxic-appearing. HENT: Mouth/Throat: Mouth: Mucous membranes are dry. No oral lesions. Pharynx: Posterior oropharyngeal erythema present. No oropharyngeal exudate. Eyes: General: No scleral icterus. Extraocular Movements: Extraocular movements intact. Neck: Thyroid: No thyroid mass, thyromegaly or thyroid tenderness. Cardiovascular: Rate and Rhythm: Normal rate and regular rhythm. Pulmonary: Effort: No tachypnea or respiratory distress. Breath sounds: No decreased breath sounds, wheezing, rhonchi or rales. Lymphadenopathy: Cervical: No cervical adenopathy. Neurological: Mental Status: She is alert. EXAMINATION: XR CHEST 1 VIEW ?? CLINICAL HISTORY: SOB ?? TECHNIQUE: PA radiograph the chest. ?? COMPARISON: Chest radiographs to 01/16/2022 ?? FINDINGS: The lungs are clear. No pneumothorax or pleural effusion. The cardiomediastinal contours, [place], and pulmonary vasculature are unremarkable. No acute osseous abnormalities. ?? IMPRESSION No acute cardiopulmonary process. ?? Preliminary report signed by: Edmar Samaniego at 10/10/2022 5:57 PM Assessment and Plan: #Viral URI, non-COVID Very active 77 yo female who presents with acute cough. Afebrile and without rales/rhonchi on physical exam today, lower suspicion for development of secondary bacterial infection. Suspect that she needs more time with adequate conservative measures to allow resolution of her bronchitis. 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 Nasal spray provided today for component of rhinorrhea/post nasal drip. Albuterol inhaler offered for bronchospasm, patient declined. Has a history of mild obstructive disease (PFTs 2018) and currently using ipratropium inhaler. Maribeth Khan MD Internal Medicine, PGY-3 * Marlon Guaman MD - 10/17/2022 10:30 AM EST The case was discussed in person at the time of the visit or immediately after the visit. The assessment and plan were formulated in discussion with me and I agree with them as documented. I have reviewed the history, physical exam, assessment and plan with the resident. Major issues discussed today: 77 y/o F with CAD, osteoporosis, obstructive lung disease Seen at [facility] for productive cough, yellow sputum, dyspnea on exertion, fatigue, anorexia. COVID negative, CXR negative. Diagnosed bronchitis/URI - given 5 days of prednisone and symptoms returned.No fevers, chills. Chronic post-nasal drip. Mild headache. Was able to clean an entire home yesterday at work. Using ipratropium without much improvement. Not currently using nasal steroid. Exam: sats 100% on RA. Afebrile, normal BP. Non-productive cough. +bronchospasm, no wheezes or rales Plan: encouraged continued rest, nasal steroids. With possible asthma, considered addition of JAY but patient reluctant to add inhalers so for now will trial conservative measures as above. documented in this encounter Plan of Treatment Upcoming Encounters Date Type Department Care Team (Late st Contact Info) Description 07/07/2024 11:00 AM EDT Office Visit Cardiology at [address] [phone] Lorena Lawrence MD [facility] [place] [address] documented as of this encounter Visit Diagnoses Diagnosis Viral bronchitis Acute bronchitis documented in this encounter Care Teams Chisel Grinder Relationship Specialty Start Date End Date Henrietta Null MD [facility] [address] [place] [address] PCP - General General Internal Medicine 10/03/2003/31 documented as of this encounter
--- OUTSIDE RECORDS SUMMARY | 2024-04-23 12:13 | XMS_ITS | Encounter Summary ---
Author Organization [facility] Address [facility] [place] [address] Care Team Providers Care Pecan Gatherer Name Role Phone Tika Simental APRN Primary Care Provider [phone] Reason for Visit * Reason Comments Cardiomyopathy Coronary Artery Disease Encounter Details Date Type Department Care Team (Late st Contact Info) Description 07/02/2023 4:20 PM EDT Office Visit Cardiology at [address] [place] [address] Lorena Lawrence MD [facility] [place] [address] LBBB (left bundle branch block) Social History Tobacco Use Types Packs/Day Years [...] 3:47 PM EDT per e cg Temperature - - Respiratory Rate - - Oxygen Saturation - - Inhaled Oxygen Concentration - - Weight 52.6 kg (116 lb) 07/02/2023 3:47 PM EDT Height 148.6 cm (4' 10.5) 07/02/2023 3:47 PM ED T Body Mass Index 23.83 07/02/2023 3:47 PM EDT documented in this encounter Progress Notes * Lorena Lawrence MD - 07/02/2023 4:20 PM EDT CARDIOLOGY OUTPATIENT FOLLOW-UP NOTE PRIMARY CARE PROVIDER: Tika Simental APRN REFERRING PROVIDER: Tika Simental PROBLEM LIST: Patient Active Problem List Diagnosis LBBB (left bundle branch block) Stress-induced cardiomyopathy Acute non-ST segment elevation myocardial infarction Repeat Echo 04/07 - no WMA. EF 56% Skin lesion of hand Nevus, atypical - foot Trigger fingers, left thumb and ring, right ring Ovarian fibroma Osteoporosis On drug holiday, no change in bone density on 04/14 DEXA scan, [facility] -3.2 in spine >-2.5 in hip. Trigeminal neuralgia Taking inositol daily and tapering down on her tegretol. MEDICATIONS: Current Outpatient Medications Medication Sig Dispense Refill TEGretoL 200 mg tablet Take 200 mg by mouth 3 times daily as needed. albuteroL (ACCUNEB) 1.25 mg/3 mL Solution for Nebulization Take 3 mLs by nebulization every 6 hoursas needed for Wheezing. 75 mL 12 fluticasone propionate (Flonase) 50 mcg/actuation [place], Suspension 2 sprays by Each Nare route 2 times daily. 9.9 g 0 furosemide (Lasix) 20 mg Tablet take 1 tablet by mouth once daily (Patient taking differently: Take20 mg by mouth every other day.) 90 tablet 3 metoprolol succinate XL (Toprol-XL) 25 mg Tablet Sustained Release 24 hr take 1 tablet by mouth once daily 90 tablet 3 EPINEPHrine 0.3 mg/0.3 mL Auto-Injector Inject 0.3 mL IM once as needed for allergic reaction (Throat tight, difficulty breathing). Call 911 as directed. 1 kit 0 fexofenadine (Naima) 60 mg Tablet Take 60 mg by mouth daily. UNABLE TO FIND Probiotic Daily 50 billion cell, One daily CALCIUM LACTATE ORAL Take 1 tablet by mouth daily. INOSITOL ORAL Take 2 tablets by mouth 2 times daily. cholecalciferol, Vitamin D3, (VITAMIN D) 1,000 unit Tab tablet Take 1 tablet by mouth daily. No current facility-administered medications for this visit. Subjective: Patient ID: Heike Ramires is a 78 y.o. female. HPI This 78-year-old woman presents for routine annual cardiac follow-up. Several years ago she had an episode which was felt to be stress-induced cardiomyopathy. Cardiac catheterization did not discloseany obstructive coronary disease. She had transient LV dysfunction which subsequently normalized. She was seen a year ago. She has a chronic left bundle branch block Patient comes in feeling well. She continues to be extremely active. 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 She denies experiencing any shortness of breath or chest discomfort. She likes to keep busy. She has no particular questions or concerns today Review of System Review of Systems All other systems reviewed and are negative. Family History: Family History Problem Relation Age of Onset Aneurysm Father cerebral aneurysm Abdominal Aortic Aneurysm Father Lupus Mother Colorectal Cancer Sister Pancreatic Cancer Sister ?pancreatic duct CA Chronic Obstructive Pulmonary Disease Sister * Sister diverticulitis Breast Cancer Neg Hx Social History: Social History Socioeconomic History Marital status: Spouse name: Not on file Number of children: Not on file Years of education: Not on file Highest education level: Not on file Occupational History Not on file Tobacco Use Smoking status: Never Smokeless tobacco: Never Vaping Use Vaping Use: Never used Substance and Sexual Activity Alcohol use: No Drug use: No Sexual activity: Yes Partners: Male Other Topics Concern Not on file Social History Narrative Lives in [place], with her . 4 children ([facility], [facility], next door). 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 Enjoying cooking, gardening, swimming. No tob No [...] Vitals and nursing note reviewed. Constitutional: Comments: Petite healthy-appearing elderly woman no acute distress Neck: Comments: Neck veins are flat carotid pulsations are normal there are no bruits Cardiovascular: Comments: Heart is regular normal S1-S2 There is no murmur or gallop Pulmonary: Effort: Pulmonary effort is normal. Breath sounds: Normal breath sounds. Abdominal: General: Abdomen is flat. Musculoskeletal: Comments: No peripheral edema, intact distal pulses Skin: General: Skin is warm and dry. Patient Vitals for the past 24 hrs: Pulse BP 07/02/23 1547 63 114/57 EKG shows sinus rhythm at 63, left axis left bundle branch block Assessment and Plan: #1. Left bundle branch block. EKG is unchanged. Patient describes good exercise capacity without any anginal symptoms. Prior cardiac catheterization disclosed no significant coronary disease No medication changes or diagnostic testing was recommended today. We will plan to recheck her in 1year Thank you for the opportunity to participate in this patient's cardiovascular care. All questions were answered and I look forward to the next visit. documented in this encounter Plan of Treatment Upcoming Encounters Date Type Department Care Team (Late st Contact Info) Description 07/07/2024 11:00 AM EDT Office Visit Cardiology at [address] [place] [phone] Lorena Lawrence MD [facility] [place] [address] documented as of this encounter Visit Diagnoses Diagnosis LBBB (left bundle branch block) Other left bundle branch block documented in this encounter Care Teams Pecan Gatherer Relationship Specialty Start Date End Date Tika Simental APRN [place] [place] [address] PCP - General Family Medicine 04/28/23 documented as of this encounter
--- OUTSIDE RECORDS SUMMARY | 2024-04-23 12:13 | XMS_ITS | Encounter Summary ---
Author Organization [facility] [place] [address] Care Team Providers Care Tie Bucker Name Role Phone HolaTika Tammy RODGERS Primary Care Provider [phone] Reason for Visit * Reason Onset Date Comments Medication Refill 07/14/2023 Encounter Details Date Type Department Care Team (Late st Contact Info) Description 07/14/2023 Refill Cardiology at [address] [phone] [facility] [place] [address] Medication Refill Social History Tobacco Use Types [...] AM EDT Office Visit Cardiology at [address] [phone] [facility] [place] [address] documented as of this encounter Visit Diagnoses Diagnosis Stress-induced cardiomyopathy Takotsubo syndrome documented in this encounter Care Teams Tie Bucker Relationship Specialty Start Date End Date Tika Simental, COIL REWIND MACHINE OPERATOR [facility] [place] [address] PCP - General Family Medicine 04/28/23 documented as of this encounter
--- OUTSIDE RECORDS SUMMARY | 2024-04-23 12:13 | XMS_ITS | Encounter Summary ---
Author Organization [facility] [place] [address] Care Team Providers Care Software Lead Name Role Phone Henrietta Null MD Primary Care Provider [phone] Reason for Visit * Reason Comments Other ? Lungs being lavelle cked... post nasal drip... coughing Encounter Details Date Type Department Care Team (Late st Contact Info) Description 10/23/2021 2:00 PM EST Office Visit Internal Medicine at [address] [phone] Dyllan Pena MD [facility] [place] [address] Chronic cough Social History Tobacco Use Types Packs/Day Years [...] Sign Reading Time Taken Comments Blood Pressure 136/66 10/23/2021 1:59 PM EST Pulse 63 10/23/2021 1:59 PM EST Temperature 36.5 ??C (97.7 ??F) 10/23/2021 1:59 PM ES T Respiratory Rate 16 10/23/2021 1:59 PM EST Oxygen Saturation 100% 10/23/2021 1:59 PM EST Inhaled Oxygen Concentration - - Weight 51.7 kg (114 lb) 10/23/2021 1:59 PM EST Height 147.1 cm (4' 9.91) 10/23/2021 1:59 PM ES T Body Mass Index 23.9 10/23/2021 1:59 PM EST documented in this encounter Progress Notes * Dyllan Pena MD - 10/23/2021 2:00 PM EST General Internal Medicine Chief Complaint Patient presents with ??? Other ? Lungs being checked... post nasal drip... coughing Heike Ramires is a 76 y.o. female who presents for an urgent visit for chronic cough. She has chronic post nasal drip for years with some coughing in the morning that stops by around noon. Cough is productive of white mucus. Her earlier this month, of heart failure. Her children wanted her cough to get checked out, but she reports it hasn't changed. She was for 60 years. She is now living alone at home. She feels she is coping well with his . She reports that her cough has been attributed to post nasal drip. She uses flonase twice per day. She also uses an ipratropium inhaler for possible asthma. She had PFTs that showed mild airflow obstruction and decreased diffusion in 2018. No dyspnea, chest pain, difficulty with exertion or physical activity, dizziness, dysphagia, abdominal pain, fever, weight loss, nausea, rash, new environmental exposures, heartburn. She does not keep any pets or animals. She humidifies her room. Objective: Medications 10/23/21 1400 Medication Sig Taking? furosemide (Lasix) 20 mg Tablet Take 1 tablet by mouth daily. Yes metoprolol succinate XL (Toprol-XL) 25 mg Tablet Sustained Release 24 hr take 1 tablet by mouth once daily Yes UNABLE TO FIND Probiotic Daily 50 billion cell, One daily Yes ipratropium (ATROVENT HFA) 17 mcg/actuation HFA Aerosol Inhaler Inhale 2 puffs into the lungs 2 times daily. Patient taking differently: Inhale into the lungs 2 times daily. Yes CALCIUM LACTATE ORAL Take 1 tablet by mouth daily. Yes INOSITOL ORAL Take 2 tablets by mouth 2 times daily. Yes cholecalciferol, Vitamin D3, (VITAMIN D) 1,000 unit Tab tablet Take 1 tablet by mouth daily. Yes carBAMazepine (TEGretol) 200 mg Tablet Take 200 mg by mouth 3 times daily. Visit Vitals BP 136/66 (BP Location (NBP): Left arm, Patient Position: Sitting, BP Cuff Sizes: Small Adult (20-26 cm)) Pulse 63 Temp 36.5 ??C (97.7 ??F) (Axillary) Resp 16 Ht 147.1 cm (4' 9.91) Wt 51.7 kg (114 lb) SpO2 100% BMI 23.90 kg/m?? Physical Exam Constitutional: General: She is not in acute distress. Appearance: She is not ill-appearing or diaphoretic. HENT: Nose: Nose normal. No congestion or rhinorrhea. Mouth/Throat: Mouth: Mucous membranes are moist. Pharynx: Oropharynx is clear. No oropharyngeal exudate or posterior oropharyngeal erythema. Cardiovascular: Rate and Rhythm: Normal rate and regular rhythm. Heart sounds: No murmur heard. No friction rub. No gallop. Pulmonary: Effort: Pulmonary effort is normal. No respiratory distress. Breath sounds: No wheezing, rhonchi or rales. Neurological: Mental Status: She is alert. Assessment and Plan: Ms. Ramires was seen today for the following issues. Problem List Items Addressed This Visit None Visit Diagnoses Chronic cough Not performing additional diagnostic testing given her normal pulmonary exam and report of stable, chronic cough, with previous assessment. Encouraged her to tell us if symptoms change in the future,however. Advising trial of antihistamine at nighttime to see if this helps with post nasal drip. Ifnot effective could try intranasal ipratropium. A mask and face shield were worn by myself for the entirety of the visit. A total of 30 minutes were spent in [id number] and non [id number] activities on the date of this encounter. documented in this encounter Plan of Treatment Upcoming Encounters Date Type Department Care Team (Late st Contact Info) Description 07/07/2024 11:00 AM EDT Office Visit Cardiology at [address] [place] [phone] Lorena Lawrence MD [facility] [place] [address] documented as of this encounter Visit Diagnoses Diagnosis Chronic cough Cough documented in this encounter Care Teams Software Lead Relationship Specialty Start Date End Date Henrietta Null MD [facility] [place] [address] PCP - General General Internal Medicine 10/03/2003/31 documented as of this encounter
--- OUTSIDE RECORDS SUMMARY | 2024-04-23 12:13 | XMS_ITS | Encounter Summary ---
Author Organization [facility] Address [address] [place] [address] Care Team Providers Care Clin Nurse Name Role Phone Unavailable Primary Care Provider Unavailabl e Encounter Details Date Type Department Care Team (Late st Contact Info) Description 04/24/2023 Lab Requisition [facility] Pathology & Laboratory Medicine - [facility] [address] [place] [address] Outr Resulting Lab, Provider Social History Tobacco [...] Procedure Name Priority Date/Time Associated Diagnosis Comments CCP ANTIBODIES Routine 04/24/2023 10:15 EDT DOUBLE STRANDED DNA ANTIBODY, IGG Routine 04/24/2023 10:15 EDT RHEUMATOID FACTOR Routine 04/24/2023 10: 15 EDT IMMUNOGLOBULINS Routine 04/24/2023 10:15 EDT ANTI NUCLEAR AB (BROCK), IFA Routine 04/24/2023 10:15 EDT IGE Routine 04/24/2023 10:15 EDT documented in this encounter Results * RHEUMATOID FACTOR (04/24/2023 10:15 EDT) Rheumatoid Factor <8.6 <12.0 IU/mL 04/25/2023 18:14 EDT [facility] Blood VENOUS BLOOD / Unknown 04/24/2023 10:15 EDT 04/25/2023 17:37 EDT Provider Outr Resulting Lab CHEMISTRY & BLOOD GAS ORDERABLES Performing Organization Address [facility] Co de Phone Number [facility] [address] [place] [address] * ANTI DNA (DOUBLE STRANDED) (04/24/2023 10:15 EDT) [facility] Anti-DNA (Double Stranded) <12.3 <30.0 IU/mL 04/29/2023 13:52 EDT [facility] Comment: ? Negative: ??<30.0 IU/mL ? Borderline Positive: ??30.0 - 75.0 IU/mL ? Positive: ??>75.0 IU/mL Results were obtained with the [employer] Lite dsDNA SC VINNIE assay on the Tript[employer]X. Blood VENOUS BLOOD / Unknown 04/24/2023 10:15 EDT 04/25/2023 17:37 EDT Provider Outr Resulting Lab IMMUNOLOGY A ND SEROLOGY ORDERABLES Performing Organization Address [facility] de Phone Number [facility] [address] [place] [address] * IGE (04/24/2023 10:15 EDT) [facility] IgE 10 <158 IU/mL 04/29/2023 9:10 EDT [facility] Blood VENOUS BLOOD / Unknown 04/24/2023 10:15 EDT 04/25/2023 17:37 EDT Provider Outr Resulting Lab CHEMISTRY & BLOOD GAS ORDERABLES Performing Organization Address [facility] Co de Phone Number [facility] [address] [place] [address] * (ABNORMAL) IMMUNOGLOBULINS (04/24/2023 10:15 EDT) [facility] IgG 647 610 - 1,616 mg/dL 04/28/2023 9:36 EDT [facility] IgA 67(L) 85 - 499 mg/dL 04/28/2023 9:36 EDT [facility] IgM 54 35 - 242 mg/dL 04/28/2023 9:36 EDT [facility] Blood VENOUS BLOOD / Unknown 04/24/2023 10:15 EDT 04/25/2023 17:37 EDT Provider Outr Resulting Lab CHEMISTRY & BLOOD GAS ORDERABLES Performing Organization Address [facility] de Phone Number [facility] [address] [place] [address] * ANTI NUCLEAR AB (BROCK), IFA (04/24/2023 10:15 EDT) [facility] BROCK Interpretation Negative Negative 2022 14:46 EDT [facility] Comment:No titer performed, BROCK Screen is negative. Blood VENOUS BLOOD / Unknown 04/24/2023 10:15 EDT 04/25/2023 17:37 EDT Narrative [facility] - 04/28/2023 14:46 EDT Results were obtained with the [employer] N[employer] Lite HEp-2 BROCK Kit by indirect immunofluorescence. Provider Outr Resulting Lab IMMUNOLOGY A ND SEROLOGY ORDERABLES Performing Organization Address [facility] de Phone Number [facility] [address] [place] [address] * CCP ANTIBODIES (04/24/2023 10:15 EDT) [facility] CCP Antibodies <2.5 <5.0 U/mL 04/28/2023 9:09 EDT [facility] Blood VENOUS BLOOD / Unknown 04/24/2023 10:15 EDT 04/25/2023 17:37 EDT Provider Outr Resulting Lab IMMUNOLOGY A ND SEROLOGY ORDERABLES Performing Organization Address City/[facility]/ZIP Co de Phone Number [facility] [address] [place] [address] documented in this encounter Visit Diagnoses Not on filedocumented in this encounter
--- OUTSIDE RECORDS SUMMARY | 2024-04-23 12:13 | XMS_ITS | Encounter Summary ---
Author Organization [facility] [place] [address] Care Team Providers Care Contact Officer Name Role Phone Henrietta Null MD Primary Care Provider [phone] Encounter Details Date Type Department Care Team (Late st Contact Info) Description 02/17/2023 Abstract Cardiology at [address] [phone] Melany Solis, RN Social History Tobacco Use Types Packs/Day [...] Office Visit Cardiology at [address] [phone] Lorena Lawrence MD [facility] [place] [address] documented as of this encounter Visit Diagnoses Not on filedocumented in this encounter Care Teams Contact Officer Relationship Specialty Start Date End Date Henrietta Null MD [facility] [place] [address] [place] [address] PCP - General General Internal Medicine 10/03/2003/31 documented as of this encounter
--- OUTSIDE RECORDS SUMMARY | 2024-04-23 12:13 | XMS_ITS | Encounter Summary ---
Author Organization [facility] [place] [address] Care Team Providers Care Ap Operator Name Role Phone HolaTika Tammy RODGERS Primary Care Provider [phone] Reason for Visit * Reason Onset Date Comments Medication Refill 07/16/2023 Encounter Details Date Type Department Care Team (Late st Contact Info) Description 07/16/2023 Refill Cardiology at [address] [phone] Tova Keller, classer Refill Social History Tobacco Use Types Packs/Day [...] AM EDT Office Visit Cardiology at [address] [phone] Lorena Lawrence MD [facility] [place] [address] documented as of this encounter Visit Diagnoses Diagnosis Stress-induced cardiomyopathy Takotsubo syndrome Congestive heart failure, unspecified HF chronicity, unspecified heart failure type documented in this encounter Care Teams Ap Operator Relationship Specialty Start Date End Date Tika Simental, CARDIOVASCULAR OPERATING ROOM NURSE [address] [place] [address] PCP - General Family Medicine 04/28/23 documented as of this encounter
--- OUTSIDE RECORDS SUMMARY | 2024-04-23 12:13 | XMS_ITS | Encounter Summary ---
Author Organization [facility] [place] [address] Care Team Providers Care Appeals Analyst Name Role Phone Henrietta Null MD Primary Care Provider [phone] Reason for Visit * Reason Comments Medication Refill Encounter Details Date Type Department Care Team (Late st Contact Info) Description 06/12/2022 Refill Cardiology at [address] [phone] Lorena Lawrence MD [facility] [place] [address] Medication Refill Social History Tobacco Use Types [...] 11:00 AM EDT Office Visit Cardiology at [address] [phone] Lorena Lawrence MD [facility] [place] [address] documented as of this encounter Visit Diagnoses Diagnosis Stress-induced cardiomyopathy Takotsubo syndrome Congestive heart failure, unspecified HF chronicity, unspecified heart failure type documented in this encounter Care Teams Appeals Analyst Relationship Specialty Start Date End Date Henrietta Null MD [facility] [place] [address] PCP - General General Internal Medicine 10/03/2003/31 documented as of this encounter
--- OUTSIDE RECORDS SUMMARY | 2024-04-23 12:13 | XMS_ITS | Encounter Summary ---
Author Organization [facility] [place] [address] Care Team Providers Care Deputy [place] Marshal Name Role Phone Henrietta Null MD Primary Care Provider [phone] Encounter Details Date Type Department Care Team (Late st Contact Info) Description 10/09/2021 Telephone Internal Medicine at [address] [address] Bruna Ly RN Social History [...] Telephone Encounter - Bruna Ly RN - 10/09/2021 2:21 PM ESTSummary: EMILIA Burroughs Heike will call to get a Covid test as my children really need for me to be checked out. I've been tired since my on the first. Heike will call for an appointment once she has had a Covid test. Encouraged Heike to go to the nearest ED or Urgent Care center if her symptoms increase or she has any chest pain or shortness of breath. documented in this encounter Plan of Treatment Upcoming Encounters Date Type Department Care Team (Late st Contact Info) Description 07/07/2024 11:00 AM EDT Office Visit Cardiology at [address] [place] [phone] [facility] [place] [address] documented as of this encounter Visit Diagnoses Not on filedocumented in this encounter Care Teams Deputy United [place] Marshal Relationship Specialty Start Date End Date Henrietta Null MD [facility] [address] [place] [address] PCP - General General Internal Medicine 10/03/20 7/ documented as of this encounter
--- OUTSIDE RECORDS SUMMARY | 2024-04-23 12:13 | XMS_ITS | Encounter Summary ---
Author Organization [facility] [place] [address] Care Team Providers Care Rn Emergency Name Role Phone Henrietta Null MD Primary Care Provider [phone] Encounter Details Date Type Department Care Team (Late st Contact Info) Description 06/18/2021 Refill Cardiology at [address] [place] [address] Lorena Lawrence MD [facility] [place] [address] Social History Tobacco Use Types Packs/Day Years [...] encounter Miscellaneous Notes * Telephone Encounter - Tova Keller RN - 06/18/2021 11:36 AM EDT Instructions given per Dr. Lawrence's response: take lasix 20 mg daily Heike agrees to this plan. She needs a refill set up for [facility] * Telephone Encounter - Tova Keller, RN - 06/18/2021 10:32 AM EDT Increased weight by 4 pounds - currently 121 pounds; shortness of breath; activity intolerance; aresymptoms reported by Heike since coming off the lasix as recommended by Dr. Lawrence. Will seek direction of Dr. Lawrence if Heike is to resume taking furosemide 20 mg every other day, daily, or another plan * Telephone Encounter - Amita Norwood - 06/18/2021 10:26 AM EDT Patient said Dr Lawrence took her off furosemide but she thinks she needs to go back on. She has been experiencing sob. Please call her back @ [phone] documented in this encounter Plan of Treatment Upcoming Encounters Date Type Department Care Team (Late st Contact Info) Description 07/07/2024 11:00 AM EDT Office Visit Cardiology at [address] [phone] Lorena Lawrence MD [facility] [address] [place] [address] documented as of this encounter Visit Diagnoses Diagnosis Stress-induced cardiomyopathy Takotsubo syndrome Congestive heart failure, unspecified HF chronicity, unspecified heart failure type documented in this encounter Care Teams Rn Emergency Relationship Specialty Start Date End Date Henrietta Null MD [facility] [address] [place] [address] PCP - General General Internal Medicine 10/03/2003/31 documented as of this encounter
--- OUTSIDE RECORDS SUMMARY | 2024-04-23 12:13 | XMS_ITS | Encounter Summary ---
Author Organization [facility] [place] [address] Care Team Providers Care Electronics Test Engineer Name Role Phone Henrietta Null MD Primary Care Provider [phone] Encounter Details Date Type Department Care Team (Late st Contact Info) Description 10/16/2022 Telephone Internal Medicine at [address] [address] Henrietta Null MD [facility] [place] [address] Social History Tobacco Use Types Packs/Day Years [...] encounter Miscellaneous Notes * Telephone Encounter - Rosa Shook RN - 10/16/2022 1:03 PM EST Caller: Patient Relationship: Self Clarified Two Patient Identifiers: [] Reason For Call: No chief complaint on file. Assessment/Symptom Review (onset, location, duration, what makes it better or worse, pertinent positives and negatives): Pt was seen at [facility] last , reports negative covid test, diagnosed with URI, wasgiven prednisone and felt better, she has finished her prednisone and symptoms are returning, wheeze, productive cough, bringing up yellow sputum, no chills, has not tried anything at home, symptoms just restarted today Review of Systems Related to Reason for Call: System POS NEG Not Applicable Head (ENT /Neuro) [] [x] [] Cardiac [] [x] [] Respiratory [x] [] [] GI [] [x] [] [] [x] [] Musculoskeletal [] [x] [] Integumentary [] [x] [] Mental Health [] [x] [] Select Specific Decision Support Tool Used: Telephone Triage Protocols for Nurses, 6th Edition, Vanesa Hansen, 2020 Name of Guideline/Protocol Used: cough Disposition/Plan of Care: Appointment within 24 hours Patient/Caregiver verbalizes understanding of plan of care: Yes Patient/Caregiver agrees with plan: Yes Advised patient/caregiver to: call office back for any new or worsening symptoms Patient/Caregiver demonstrates understanding via teach back: Yes * Telephone Encounter - Dyllan Ruth - 10/16/2022 12:40 PM EST Message: PT is having symptoms of bronchitis and would like to be seen and advised. No appts available within time frame. Ask caller their first and last name and relationship to the patient: self Best time to call back: anytime Ok to leave a message: y Ok to send my- message: n Offered Appointment: n MA/Nurse/[place] contacted via: Message: y Call: n Pager: n documented in this encounter Plan of Treatment Upcoming Encounters Date Type Department Care Team (Late st Contact Info) Description 07/07/2024 11:00 AM EDT Office Visit Cardiology at [address] [place] [phone] Lorena Lawrence MD [facility] [place] [address] documented as of this encounter Visit Diagnoses Not on filedocumented in this encounter Care Teams Electronics Test Engineer Relationship Specialty Start Date End Date Henrietta Null MD [facility] [place] [address] PCP - General General Internal Medicine 10/03/2003/31 documented as of this encounter
--- OUTSIDE RECORDS SUMMARY | 2024-04-23 12:13 | XMS_ITS | Encounter Summary ---
Author Organization [facility] Address [facility] [place] [address] Care Team Providers Care Financial Services Manager Name Role Phone Tika Simental APRN Primary Care Provider [phone] Reason for Visit * Consultation (Priority 3) - Closed Specialty Diagnoses / Procedures Referred By Evelio mathis Referred To Contact Dermatology Diagnoses Screening for skin cancer Tika Simental APRN [address] [place] [address] [facility]ermat[facility] [address] [place] [address] Referral ID Status Reason Start Date Expiration Date V isits Requested Visits Authorized [id number] Closed Consult, Test & Treat PCP Updated and/or Approved 04/28/2023 04/27/2024 12 12 Encounter Details Date Type Department Care Team (Late st Contact Info) Description 09/08/2023 1:20 PM EST Office Visit Dermatology at [facility] [address] [place] [address] Abigail Munroe MD [facility] [address] [place] [address] [place] (actinic keratosis) Social History Tobacco Use Types Packs/Day Years Used Date Smoking Tobacco: Never Smokeless Tobacco: Never Alcohol Use Standard Drinks/Week Comments No 0 (1 standard drink = 0.6 oz pur e alcohol) Sex and Gender Information Value Date Recorded Sex Assigned at Not on file Gender Identity Not on file Sexual Orientation Not on file documented as of this encounter Progress Notes * Abigail Munroe MD - 09/08/2023 1:20 PM EST Images from the original note were not included. DEPARTMENT OF DERMATOLOGY Medical Dermatology Clinic Provider: ABIGAIL MUNROE MD Patient's preferred name Heike Preferred contact method for results []Phone []myD-H []Letter Detailed phone message OK? Are there any other people with whom we may discuss your care? Past Medical History Date, location, treatment Melanoma N Dysplastic nevi N SCC N BCC N AKs N UV Exposure & Protection A - Skin, right upper back, shave biopsy: Compound dysplastic nevus with severe atypia, peripheral margins appear negative in the plane of sections examined. Focally involved hair follicle is at the deep biopsy edge. Excised by Dr. Collins 03/2012. B - Skin, right palm, shave biopsy: Atypical lentiginous junctional melanocytic proliferation, transected at peripheral and deep biopsy edges, (see Comment). Excised by Dr. Sánchez 04/2012 C - Skin, right calf, shave biopsy: Compound dysplastic nevus with severe atypia, margins appear negative in the plane of sections examined. Excised by Dr. Joshi 02/2012 D - Skin, left green, shave biopsy: Compound nevus with moderate to severe atypia, margins appear negative in the plane of sections examined. Excised by Dr. Joshi 02/2012 E - Skin, left dorsal foot, shave biopsy: Severely atypical lentiginous and nested junctional melanocytic proliferation in sun-damaged skin, the edges of the specimen are free of lesion in the planes of section examined, (see Comment). Excised by Dr. Sánchez 04/2012 Family History Details Melanoma NMSC Other relevant family history Social History Occupation: Hobbies: Other: Pre-Procedure Screening Details Allergy to lidocaine, epinephrine, Dermabond, chlorhexidine, or adhesives N Bleeding disorder or blood thinners N Pacemaker, defibrillator, deep brain stimulator, cochlear implant N History of Present Illness: Heike Ramires is a 78 y.o. Patient is referred to the clinic at the request of Tika Simental for a full skin exam with the following concerns: - pink plaque on the nasal dorsum, present x 1 year, asymptomatic. Review of Systems: General: Feeling well. Skin: No other skin concerns. Medications: Reviewed in eD-H Allergies: Reviewed in eD-H Skin Examination: Full skin examination: Patient asked to undress to their comfort level. Verbalized that the provider's preference is that patient remove all clothing and that the provider will not examine areas patient elects to keep covered. Examination of the scalp, hair, head, face, ears, neck, chest, axillae, abdomen, back, buttocks, genitalia, and upper and lower extremities was normal with the exception ofthe findings below. Assessment/Plan #. Actinic Keratoses - Ill-defined, gritty papule(s) on the nasal dorsum. - Explained premalignant potential of these lesions. - Discussed treatment options (LN2, 5-FU) and their respective risks and benefits. - Patient elects to proceed with 5-FU spot treatment. - Start Rx 5-fluorouracil (Efudex) 5% cream: Apply a thin layer to affected areas on the nasal dorsum twice daily (morning and night) as tolerated for 3 weeks. - Reviewed expectations, typical reaction, and restrictions on light exposure during treatment. Patient understands that affected area will likely become red, irritated, and tender during treatment and that this is a normal reaction. Discussed option to hold treatment for 1-2 days if inflammation becomes too intense or patient experiences discomfort. Advised patient to call clinic if pain is excessive or infection is suspected. - Cautioned that this medication is toxic to pets. #. Benign-Appearing Nevi - Medium brown, evenly pigmented macules and papules scattered on the trunk and extremities. Reassuring pigment pattern on dermoscopy. - Discussed benign appearance and provided reassurance. Will continue to monitor. - Advised to watch for anything new, changing (e.g., color or shape), or symptomatic (e.g., easy bleeding, tenderness, pain). #. Seborrheic Keratoses - [place]-brown papules/plaques with waxy, stuck-on appearance scattered on the head, trunk, and extremities. - Explained that these are hereditary and adult-acquired. Reassured patient of benign nature. No treatment necessary. Figure 1 Photo(s) taken and charted with patient's verbal consent. Other: N/A RTC: December for an Efudex follow up; 1 year FBSE []Note routed to psychiatric secretary []Recall placed in scheduling system [x]Appointment scheduled at checkout Scribe attestation: Yolis Johnson LPN has performed the documentation for this encounter in the presence of and acting as a scribe for ABIGAIL MUNROE MD. I performed the above scribed service and agree with the accuracy of the documentation in this encounter. Reviewed and signed by: ABIGAIL MUNROE MD [facility] documented in this encounter Plan of Treatment Upcoming Encounters Date Type Department Care Team (Late st Contact Info) Description 07/07/2024 11:00 AM EDT Office Visit Cardiology at [address] [place] [address] Lorena Lawrence MD [facility] [place] [address] documented as of this encounter Visit Diagnoses Diagnosis AK (actinic keratosis) Actinic keratosis documented in this encounter Care Teams Financial Services Manager Relationship Specialty Start Date End Date Tika Simental, ANA MARIA [address] [place] [address] PCP - General Family Medicine 04/28/23 documented as of this encounter
--- OUTSIDE RECORDS SUMMARY | 2024-04-23 12:13 | XMS_ITS | Encounter Summary ---
Author Organization [facility] [place] [address] Care Team Providers Care Director Traffic And Planning Name Role Phone HolaTika Tammy RODGERS Primary Care Provider [phone] Reason for Visit * Reason Comments Follow-up Encounter Details Date Type Department Care Team (Late st Contact Info) Description 01/20/2024 10:00 AM EDT Office Visit Dermatology at [facility] [place] [address] [place] [address] Abigail Munroe MD [facility] [place] [address] Seborrheic keratosis, inflamed; History of actinic keratoses Social History Tobacco Use Types Packs/Day Years [...] Progress Notes * Abigail Munroe MD - 01/20/2024 10:00 AM EDT Images from the original note were not included. DEPARTMENT OF DERMATOLOGY Medical Dermatology Clinic Provider: ABIGAIL MUNROE MD Patient's preferred name Heike Preferred contact method for results [x]Phone []myD-H []Letter Detailed phone message OK? yes Are there any other people with whom we may discuss your care? Past Medical History Date, location, treatment Melanoma N Dysplastic nevi N SCC N BCC N AKs Bridge of nose, 5fu x [address] UV Exposure & Protection A - Skin, [...] Heike Ramires is a 78 y.o. Patient returns to clinic today for follow up of actinic keratosis on the nose. She treated with efudex twice daily x 3 weeks, she reports having a red reaction. She saw her pcp in October while still treating with the cream, her pcp treated the nose with LN2 as well. She says it feels smooth and not painful anymore. Last visit at Dermatology: 09/08/2023 Last visit with this provider: 09/08/2023 Medications: Reviewed in eD-H Allergies: Reviewed in eD-H Skin Examination: Focused skin examination of the nose was normal with the exception of the findings below. Assessment/Plan # History of actinic keratosis s/p 5FU treatment- bridge of nose resolved. # Inflamed Seborrheic Keratosis - Inflamed/excoriated, stuck-on, waxy plaque(s) on the intermammary. - Discussed benign nature and provided reassurance. - Due to irritation present on today's exam and history of symptoms, offered removal with cryotherapy today; patient agreed to proceed. Procedure: Destruction of benign lesion(s) with cryotherapy (LN2). Location(s): As noted above. Number: 3 Indication and expectations, including risks (especially hypopigmentation) and benefits, discussed.Possibility of recurrence and need for additional treatment reviewed. Verbal consent obtained. Frozen with LN2, 15-30 second thaw time, twice. There were no complications; patient tolerated procedurewell. Post- procedure expectations and wound care reviewed. -recommend wearing antiperspirant Other: N/A RTC: / August for FSE []Note routed to audio visual secretary [x]Recall placed in scheduling system []Appointment scheduled at checkout Scribe attestation: DUNG GREGG LPN has performed the documentation for this encounter in the presence of and acting as a scribe for ABIGAIL MUNROE MD. I performed the above scribed service and agree with the accuracy of the documentation in this encounter. Reviewed and signed by: ABIGAIL MUNROE MD Dermatology [facility] documented in this encounter Plan of Treatment Upcoming Encounters Date Type Department Care Team (Late st Contact Info) Description 07/07/2024 11:00 AM EDT Office Visit Cardiology at [address] [place] [address] Lorena Lawrence MD [facility] [place] [address] documented as of this encounter Visit Diagnoses Diagnosis Seborrheic keratosis, inflamed Inflamed seborrheic keratosis History of actinic keratoses Personal history of diseases of skin and subcutaneous tissue documented in this encounter Care Teams Director Traffic And Planning Relationship Specialty Start Date End Date Tika Simental, QUALITY ASSURANCE ADVISOR [place] [address] PCP - General Family Medicine 04/28/23 documented as of this encounter
--- OUTSIDE RECORDS SUMMARY | 2024-04-23 12:14 | XMS_ITS | Encounter Summary ---
Author Organization [facility] [place] [address] Care Team Providers Care Commercial Loan Collection Officer Name Role Phone Henrietta Null MD Primary Care Provider [phone] Reason for Visit * Reason Comments Medication Refill Encounter Details Date Type Department Care Team (Late st Contact Info) Description 03/28/2020 Refill Cardiology at [address] [place] [address] Tiffani Phillip APRN [facility] [place] [address] Medication Refill Social History Tobacco Use Types [...] 11:00 AM EDT Office Visit Cardiology at [address] [address] Lorena Lawrence MD [facility] [place] [address] documented as of this encounter Visit Diagnoses Not on filedocumented in this encounter Care Teams Commercial Loan Collection Officer Relationship Specialty Start Date End Date Henrietta Null MD [facility] [place] [address] PCP - General General Internal Medicine 10/03/2003/31 documented as of this encounter
--- OUTSIDE RECORDS SUMMARY | 2024-04-23 12:14 | XMS_ITS | Encounter Summary ---
Author Organization [facility] [address] Care Team Providers Care Financial Aid Administrator Name Role Phone Henrietta Null MD Primary Care Provider [phone] Reason for Visit * Reason Onset Date Comments Questions 10/09/2020 Encounter Details Date Type Department Care Team (Late st Contact Info) Description 10/09/2020 Telephone Internal Medicine at [address] [address] Cristina Orozco Questions Social History Tobacco Use Types Packs/Day Years [...] Telephone Encounter - Bruna Ly RN - 10/09/2020 4:49 PM EST Spoke with Heike at length and she wwas having bronchitis and was prescribed Atrovent Inhaler at [facility]. She wonders if she can stop. Discussed with Tennille Rehman , pt feeling well and no further coughing, pt will stop the inhaler. Pt told we would send a FITR test to her and that a Hepatitis C test order was available at [facility] if she is in the area. * Telephone Encounter - AngyjeanineCristina - 10/09/2020 4:06 PM EST Message: Patient is calling the office today with a few questions she has. Patient is wondering what the hepatitis c screening is and what she would have to do for that. Patient is also calling to find out if it would be possible for someone to mail a fit kit to her as it would be easier than coming in for a colonoscopy. Patient's other question was how long she should use the inhaler she was prescribed at the ED and how many times a day she should use it. Please call patient to discuss these. Ask caller their first and last name and relationship to the patient: self Best time to call back: any Ok to leave a message: yes Ok to send my- message: yes Offered Appointment: MA/Nurse/[place] contacted via: Message: yes Call: no Pager: no documented in this encounter Plan of Treatment Upcoming Encounters Date Type Department Care Team (Late st Contact Info) Description 07/07/2024 11:00 AM EDT Office Visit Cardiology at [address] [address] Lorena Lawrence MD [facility] [place] [address] documented as of this encounter Results * Hepatitis C Antibody (10/17/2020 9:54 AM EST) Hepatitis C Ab Negative Negative [facility] Blood specimen (specimen) 10/17/2020 9:54 AM EST 10/17/2020 10:05 AM EST Narrative Resulting Agency Comment Spec In Lab Henrietta Null MD IMMUNOLOGY ORDERABLE S [facility] [place] [address] documented in this encounter Visit Diagnoses Diagnosis Need for hepatitis C screening test Special screening examination for other specified viral diseases documented in this encounter Care Teams Financial Aid Administrator Relationship Specialty Start Date End Date Henrietta Null MD [facility] [place] [address] PCP - General General Internal Medicine 10/03/2003/31 documented as of this encounter
--- OUTSIDE RECORDS SUMMARY | 2024-04-23 12:14 | XMS_ITS | Encounter Summary ---
Author Organization [facility] [place] [address] Care Team Providers Care Cover Creaser Name Role Phone Henrietta Null MD Primary Care Provider [phone] Reason for Visit * Reason Onset Date Comments Questions 10/17/2020 Encounter Details Date Type Department Care Team (Late st Contact Info) Description 10/17/2020 Telephone Internal Medicine at [address] [address] Pamela Hudson Questions Social History Tobacco Use Types Packs/Day [...] Telephone Encounter - Bruna Ly RN - 10/17/2020 1:53 PM ESTSummary: Cough hasa come back and she is coughing up thick yellow sputum Heike wants to know if she can use the Atrovent inhaler that she got at [facility]. She denies trouble breathing, but says she is coughing up thick yellow sputum despite drinking 3-4 vinegarbottles of water a day. She states she does not feel sick it's just the cough, and the sputum. Told Heike that since her symptoms seemed to be happening again Dr. Null would probably like tohave her have a visit by . Heike said that would be fine, but could she use the inhaler. Called Heike back to relay Dr. Null's agreement that she may use the inhaler. * Telephone Encounter - Pamela [place] - 10/17/2020 1:36 PM EST Message: Pt calling stating she was prescribed an Atrovent inhaler 17mcg awhile back from [facility] and she is wanting to know if she can still use this and if so how often. Please call the ptback to discuss. Ask caller their first and last name and relationship to the patient: Pt Best time to call back: any Ok to leave a message: yes Ok to send my- message: n Offered Appointment: MA/Nurse/[place] contacted via: Message: x Call: Pager: documented in this encounter Plan of Treatment Upcoming Encounters Date Type Department Care Team (Late st Contact Info) Description 07/07/2024 11:00 AM EDT Office Visit Cardiology at [address] [address] Lorena Lawrence MD [facility] [place] [address] documented as of this encounter Visit Diagnoses Not on filedocumented in this encounter Care Teams Cover Creaser Relationship Specialty Start Date End Date Henrietta Null MD [facility] [place] [address] PCP - General General Internal Medicine 10/03/20/ documented as of this encounter
--- OUTSIDE RECORDS SUMMARY | 2024-04-23 12:14 | XMS_ITS | Encounter Summary ---
Author Organization [facility] [place] [address] Care Team Providers Care Clinical Sciences Professor Name Role Phone Henrietta Null MD Primary Care Provider [phone] Reason for Visit * Reason Comments Follow-up stress-induced cardi omyapathy - had follow up w/cardiology and she is doing fine, no retrictions Encounter Details Date Type Department Care Team (Late st Contact Info) Description 02/18/2020 11:20 AM EDT TH Visit (TeleHealth) Internal Medicine at [address] [id number] Henrietta Null MD [facility] [address] Stress-induced cardiomyopathy Social History Tobacco Use Types [...] Sign Reading Time Taken Comments Blood Pressure 102/72 02/18/2020 10:52 AM EDT Pulse 61 02/18/2020 10:52 AM EDT Temperature 37.1 ??C (98.8 ??F) 02/18/2020 10:52 AM E DT Respiratory Rate - - Oxygen Saturation 95% 02/18/2020 10:52 AM EDT Inhaled Oxygen Concentration - - Weight 53.7 kg (118 lb 6.4 oz) 02/18/2020 10:52 AM EDT Height 148.6 cm (4' 10.5) 02/18/2020 10:52 AM E DT Body Mass Index 24.32 02/18/2020 10:52 AM EDT documented in this encounter Progress Notes * Henrietta Null MD - 02/18/2020 11:20 AM EDT Telephone/Telehealth Based Clinical Care Note Heike Ramires verbally consented to conduct this clinical encounter by telephone or video/telehealth. she acknowledges that her insurance may be billed for the care provided, similar to an in person appointment. Heike Ramires is in the following location at the time of the phone call: [place], [place] (document location including state) Reason for visit/chief complaint: Chief Complaint Patient presents with ??? Follow-up stress-induced cardiomyapathy - had follow up w/cardiology and she is doing fine, no retrictions Current Medications (which were reviewed during the visit): Medications 02/18/20 1051 Medication Sig Taking? metoprolol succinate XL (Toprol XL) 25 mg Tablet Sustained Release 24 hr Take 1 tablet by mouth daily. Yes furosemide (Lasix) 20 mg Tablet Take 1 tablet by mouth daily. Yes CALCIUM LACTATE ORAL Take 1 tablet by mouth daily. Yes INOSITOL ORAL Take 1 tablet by mouth 2 times daily. Yes cholecalciferol, Vitamin D3, (VITAMIN D) 1,000 unit Tab tablet Take 1 tablet by mouth daily. Yes cyanocobalamin (VITAMIN B-12) 1,000 mcg tablet Yes Patient Reported: Vitals: 02/18/20 1052 BP: 102/72 BP Location (NB): Left arm Patient Position: Sitting Pulse: 61 Temp: 37.1 ??C (98.8 ??F) TempSrc: Tympanic SpO2: 95% Weight: 53.7 kg (118 lb 6.4 oz) Height: 148.6 cm (4' 10.5) Wt Readings from Last 3 Encounters: 02/18/20 53.7 kg (118 lb 6.4 oz) 02/02/20 53.1 kg (117 lb) 01/21/20 53.2 kg (117 lb 3.2 oz) Documentation of content of discussion:pt is a 74 yo female with admission in December to with presumed stress induced cardiomyopathy. She was discharged home on losartan, metoprolol and lasix. Soon after discharge she developed a rash which predictaly came after taking losartan and that medicationwas discontinued. She remains on the metoprolol xl and furosamide. She met with cardiology at [facility] on 02/01 with no changes made in her medication. Today she says she feels well. Perhaps more tired than her baseline which she blames on the metoprolol. She has been checking weights and they are stable. She also has been closely monitoring bp and p and they are noted below. She denies any cardiovascular symptoms and denies any lightheadedness or dizziness. She has returned to [address] Assessment and Plan: stress cardiomyopathy. Currently asymptomatic except for mild fatigue. Will decrease her Furosamide to qod and monitor weights. If no change, adjust to q 3 days and if no change can d/c and only take prn weight gain. Follow Up: prn and with cardiology as scheduled in April. For Telephone Visits - total time spent associated with the visit including patient discussion and pre/post visit chart activities: 15 minutes Telephone/Telehealth visit codes: Established Patient New Patient 85234 (10 minute visit) 11852 (10 minute visit) 55863 (15 minute visit) 15133 (20 minute visit) 96057 (25 minute visit) 95336 (30 minute visit) 07784 (40 minute visit) 40874 (45 minute visit) 32668 (60 minute visit) documented in this encounter Plan of Treatment Upcoming Encounters Date Type Department Care Team (Late st Contact Info) Description 07/07/2024 11:00 AM EDT Office Visit Cardiology at [address] [place] [phone] Lorena Lawrence MD [facility] [place] [address] documented as of this encounter Visit Diagnoses Diagnosis Stress-induced cardiomyopathy Takotsubo syndrome documented in this encounter Care Teams Clinical Sciences Professor Relationship Specialty Start Date End Date Henrietta Null MD [facility] [address] [place] [address] PCP - General 12/20/10 05/08/20 documented as of this encounter
--- OUTSIDE RECORDS SUMMARY | 2024-04-23 12:14 | XMS_ITS | Encounter Summary ---
Author Organization [facility] [place] [address] Care Team Providers Care Mortgage Analyst Name Role Phone Henrietta Null MD Primary Care Provider [phone] Reason for Visit * Reason Onset Date Comments Questions 10/02/2020 Encounter Details Date Type Department Care Team (Late st Contact Info) Description 10/02/2020 Telephone Internal Medicine at [address] [address] Pamela Hudson Questions Social History [...] Telephone Encounter - Bruna Ly RN - 10/02/2020 3:34 PM ESTSummary: TE Med Records Requested MR from [facility] re ED visit. * Telephone Encounter - Pamela Hudson - 10/02/2020 3:04 PM EST Please call patient to discuss Emergency Room Follow Up Reason for the Emergency Room visit: Inflammation Name of the facility where patient was seen: [facility] Symptomatic now: yes Other information:Pt states she was seen for inflammation and was prescribed an inhaler. Pt would like to know if a Nebulizer could be ordered for her as she feels that works much better. Please callback to discuss. Caller and Relationship (if other than patient): Pt Best time to call back: any Okay to leave a message: yes Okay to send my- message: n Nurse contacted via: Message: x Call: Pager: documented in this encounter Plan of Treatment Upcoming Encounters Date Type Department Care Team (Late st Contact Info) Description 07/07/2024 11:00 AM EDT Office Visit Cardiology at [address] [address] Lorena Lawrence MD [facility] [place] [address] documented as of this encounter Visit Diagnoses Not on filedocumented in this encounter Care Teams Mortgage Analyst Relationship Specialty Start Date End Date Henrietta Null MD [facility] [address] [place] [address] PCP - General General Internal Medicine 10/03/20 7/ documented as of this encounter
--- OUTSIDE RECORDS SUMMARY | 2024-04-23 12:14 | XMS_ITS | Encounter Summary ---
Author Organization [facility] [place] [address] Care Team Providers Care Armature Inspector Name Role Phone Henrietta Null MD Primary Care Provider [phone] Encounter Details Date Type Department Care Team (Latest Contact Info) Description 10/17/2020 7:44 AM EST - 10/17/2020 11:59 PM [facility] [place] [phone] Screening for colon cancer Discharge Disposition: Home Social History Tobacco [...] Sig Dispensed Refills Start Date End Date CALCIUM LACTATE ORAL Take 1 tablet by mouth daily. INOSITOL ORAL Take 2 tablets by mouth 2 times daily. cholecalciferol, Vitamin D3, (VITAMIN D) 1,000 unit Tab tabletIndications:Osteo penia Take 1 tablet by mouth daily. 01/10/2012 carBAMazepine (TEGretol) 200 mg Tablet Take 200 mg by mouth 3 times daily. 02/19/2022 inhalational spacing device SpacerIndications:Trige shreyas neuralgia Use as directed by pharmacist with albuterol mdi. 1 each 2 09/15/2020 06/01/2021 omeprazole (PriLOSEC) 40 mg Capsule, Delayed Release(E.C.)Indication s:Gastroesophageal reflux disease, unspecified whether esophagitis present Take 1 capsule by mouth daily. 30 minutes before dinner 30 capsule 11 09/15/2020 06/01/2021 metoprolol succinate XL (Toprol XL) 25 mg Tablet Sustained Release 24 hrIndications:Stress-in duced cardiomyopathy Take 1 tablet by mouth daily. 90 tablet 3 03/30/2020 03/19/2021 cyanocobalamin (VITAMIN B-12) 1,000 mcg tablet 12/20/201006/01 documented as of this encounter Plan of Treatment Upcoming Encounters Date Type Department Care Team (Late st Contact Info) Description 07/07/2024 11:00 AM EDT Office Visit Cardiology at [address] [phone] Lorena Lawrence MD [facility] [place] [address] documented as of this encounter Procedures Procedure Name Priority Date/Time Associated Diagnosis Comments HC IFOB (FIT) FECAL BLOOD HEMOGLOBIN; 1-3 DETERMINATIONS Routine 10/17/2020 1:50 PM EST Screening for colon cancer documented in this encounter Results * Fecal Occult Blood, Immunoassay (10/17/2020 1:50 PM EST) Fecal Occult Blood, Immunoassay Negative Negative [facility] Stool specimen (specimen) 10/17/2020 1:50 PM EST 10/27/2020 8:21 AM EST Narrative Resulting Agency Comment Spec In Lab Henrietta Null MD BODY FLUIDS AND STOO LS ORDERABLES [facility] [place] [address] documented in this encounter Visit Diagnoses Diagnosis Screening for colon cancer Special screening for malignant neoplasms, colon documented in this encounter Care Teams Armature Inspector Relationship Specialty Start Date End Date Henrietta Null MD [facility] GENER[facility] [place] [address] PCP - General General Internal Medicine 10/03/2003/31 documented as of this encounter
--- OUTSIDE RECORDS SUMMARY | 2024-04-23 12:14 | XMS_ITS | Encounter Summary ---
Author Organization [facility] [place] [address] Care Team Providers Care Meteorology Professor Name Role Phone Henrietta Null MD Primary Care Provider [phone] Reason for Visit * Reason Comments Palpitations Patient and her daug hter thought 1 month was too long to wait to f/u on previous episode. Encounter Details Date Type Department Care Team (Late st Contact Info) Description 01/21/2020 2:00 PM EDT TH Visit (TeleHealth) Internal Medicine at [address] [address] Henrietta Null MD [facility] [place] [address] Stress-induced cardiomyopathy Social History Tobacco Use Types [...] Sign Reading Time Taken Comments Blood Pressure 121/54 01/21/2020 2:11 PM EDT Pulse 71 01/21/2020 2:11 PM EDT Temperature 36.8 ??C (98.3 ??F) 01/21/2020 2:11 PM ED T Respiratory Rate - - Oxygen Saturation 93% 01/21/2020 2:11 PM EDT Inhaled Oxygen Concentration - - Weight 53.2 kg (117 lb 3.2 oz) 01/21/2020 2:11 P M EDT Height - - Body Mass Index 24.08 01/06/2020 11:56 AM EDT documented in this encounter Progress Notes * Henrietta Null MD - 01/21/2020 2:00 PM EDT TELEMEDICINE VISIT - Given the ongoing COVID-19 public health emergency, this visit was done as a Telephone visit. The patient gave verbal consent for the visit. The exam findings were based on the conversation with the patient during the visit. Cc: f/up cardiomyopathy Subjective: pt is a 74 yo female with recent admission to with presumed stress induced cardiomyopathy. She was discharged home on losartan, metoprolol and lasix and I followed up with her for TCM visit 01/17 at which time she was feeling well (4 days ago). In the interim she developed a night-time rash which she suspected might be related to the losartan as it happened after she took the medication. She was advised to stop the medication and f/up. Today, she says that the rash has improved, and she is feeling well. She continues on the metoprolol xl and furosamide. She has been checking weights and they are stable. She also has been closely monitoring bp and p and they are noted below. She denies any cardiovascular symptoms. She does note that she is worried about waiting until the end of January to see Cardiology and have echo. She is also eager to get back to work. Meds/allergies: Current Outpatient Medications on File Prior to Visit Medication Sig Dispense Refill ??? metoprolol succinate XL (Toprol XL) 25 mg Tablet Sustained Release 24 hr Take 1 tablet by mouthdaily. 30 tablet 2 ??? furosemide (Lasix) 20 mg Tablet Take 1 tablet by mouth daily. 30 tablet 2 ??? CALCIUM LACTATE ORAL Take by mouth. ??? INOSITOL ORAL Take by mouth. ??? cholecalciferol, Vitamin D3, (VITAMIN D) 1,000 unit Tab tablet Take 1 tablet by mouth daily. ??? cyanocobalamin (VITAMIN B-12) 1,000 mcg tablet No current facility-administered medications on file prior to visit. Most Recent Vitals: 01/21/20 1411 BP: 121/54 Pulse: 71 Temp: 36.8 ??C (98.3 ??F) SpO2: 93% Heike participated in a telephone visit today. She is feeling well off of the losartan and continuing the metoprolol and lasix. We discussed that she should continue to take it easy given that she did have an elevated troponin signifying at least some heart damage. We will see if she can have hercardiology appt moved up as she was to see the in 4 weeks from her discharge which would be early January. She will cont her current medications as she is doing and call if any change in weight or new symptoms. Diagnoses and all orders for this visit: Stress-induced cardiomyopathy I provided care to the patient today via telephone call, 20 minutes telephone visit was spent in discussion with patient on above. documented in this encounter Plan of Treatment Upcoming Encounters Date Type Department Care Team (Late st Contact Info) Description 07/07/2024 11:00 AM EDT Office Visit Cardiology at [address] [phone] Lorena Lawrence MD [facility] [place] [address] documented as of this encounter Visit Diagnoses Diagnosis Stress-induced cardiomyopathy Takotsubo syndrome documented in this encounter Care Teams Meteorology Professor Relationship Specialty Start Date End Date Henrietta Null MD [facility] [place] [address] PCP - General 12/20/10 05/08/20 documented as of this encounter
--- OUTSIDE RECORDS SUMMARY | 2024-04-23 12:14 | XMS_ITS | Encounter Summary ---
Author Organization [facility] [place] [address] Care Team Providers Care Director Of Business Applications Name Role Phone Henrietta Null MD Primary Care Provider Reason for Visit * Reason Onset Date Comments Appointment 09/05/2020 Encounter Details Date Type Department Care Team (Late st Contact Info) Description 09/05/2020 Telephone Internal Medicine at [address] [address] All Diggs Appointment Social History Tobacco Use Types Packs/Day Years [...] encounter Miscellaneous Notes * Telephone Encounter - All Diggs - 09/05/2020 8:49 AM EST Message: Heike, was a patient of Henrietta Null MD until earlier this year, when she decided to see someone closer to home. She would like to see her as a PCP again, as she said it would be easier to see a woman and Dr. Null is familiar with her. Heike is having trouble with her Tregemmnolnaralga/ facial nerve pain. And would like to come in to see Dr. Null. Please call her back to advise. Thanks, Ask caller their first and last name and relationship to the patient: Heike Best time to call back: Anytime today Ok to leave a message: Yes Ok to send my- message: No Offered Appointment: not yet MA/Nurse/Dancing Teacher contacted via: Message: TE to Albert Pitts, documented in this encounter Plan of Treatment Upcoming Encounters Date Type Department Care Team (Late st Contact Info) Description 07/07/2024 11:00 AM EDT Office Visit Cardiology at [address] [phone] Lorena Lawrence MD [facility] [place] [address] documented as of this encounter Visit Diagnoses Not on filedocumented in this encounter Care Teams Director Of Business Applications Relationship Specialty Start Date End Date Henrietta Null MD [facility] [address] [address] PCP - General General Internal Medicine 10/03/2003/31 documented as of this encounter
--- OUTSIDE RECORDS SUMMARY | 2024-04-23 12:14 | XMS_ITS | Encounter Summary ---
Author Organization [facility] [place] [address] Care Team Providers Care Hand Booked Folder And Stitcher Name Role Phone Henrietta Null MD Primary Care Provider Reason for Visit * Reason Onset Date Comments Questions 01/13/2020 Encounter Details Date Type Department Care Team (Late st Contact Info) Description 01/13/2020 Telephone Internal Medicine at [address] [address] Roseann Pitts Questions Social History Tobacco Use Types Packs/Day [...] encounter Miscellaneous Notes * Telephone Encounter - Roseann Pitts - 01/13/2020 9:34 AM EDT Message: Patient called asking to speak with Henrietta Null MD. Patient would like to know if all her lab orders are in so she can complete them tomorrow. Please contact back to discuss. Ask caller their first and last name and relationship to the patient: Patient Best time to call back: any Ok to leave a message: y Ok to send my- message: y Offered Appointment: MA/Nurse/[place] contacted via: Message: y Call: n Pager: n documented in this encounter Plan of Treatment Upcoming Encounters Date Type Department Care Team (Late st Contact Info) Description 07/07/2024 11:00 AM EDT Office Visit Cardiology at [address] [facility] [place] [address] Lorena Lawrence MD [facility] [place] [address] documented as of this encounter Visit Diagnoses Not on filedocumented in this encounter Care Teams Hand Booked Folder And Stitcher Relationship Specialty Start Date End Date Henrietta Null MD [facility] [address] [place] [address] PCP - General 12/20/10 05/08/20 documented as of this encounter
--- OUTSIDE RECORDS SUMMARY | 2024-04-23 12:14 | XMS_ITS | Encounter Summary ---
Author Organization [facility] [place] [address] Care Team Providers Care Sander Hand Name Role Phone Henrietta Null MD Primary Care Provider [phone] Reason for Visit * Reason Onset Date Comments Triage 05/04/2021 Encounter Details Date Type Department Care Team (Late st Contact Info) Description 05/04/2021 Telephone Internal Medicine at [address] [address] Radha Og Triage Social History Tobacco Use Types Packs/Day Years [...] Telephone Encounter - Bruna Ly RN - 05/04/2021 10:41 AM EDT Summary: Nehemiah Burroughs Went to ED got 20mg Prednisone and Meloxicam. She will call or come I if not getting better or if getting worse. * Telephone Encounter - Radha Og - 05/04/2021 7:41 AM EDT Message: Patient was stung by a hornet last night and states her left are is swelling up and getting worse, no availability. Please call to discuss Ask caller their first and last name and relationship to the patient: self Best time to call back: any Ok to leave a message: y Ok to send my- message: n Offered Appointment: n MA/Nurse/Water Hydrant Installer contacted via: Message: y Call: y Pager: n documented in this encounter Plan of Treatment Upcoming Encounters Date Type Department Care Team (Late st Contact Info) Description 07/07/2024 11:00 AM EDT Office Visit Cardiology at [address] [address] Lorena Lawrence MD [facility] [place] [address] documented as of this encounter Visit Diagnoses Not on filedocumented in this encounter Care Teams Sander Hand Relationship Specialty Start Date End Date Henrietta Null MD [facility] [address] [place] [address] PCP - General General Internal Medicine 10/03/2003/31 documented as of this encounter
--- OUTSIDE RECORDS SUMMARY | 2024-04-23 12:14 | XMS_ITS | Encounter Summary ---
[place] [address] Care Team Providers Care Permastone Installer Name Role Phone Henrietta Null MD Primary Care Provider [phone] Reason for Visit * Reason Onset Date Comments Other 01/19/2020 itchy rash Encounter Details Date Type Department Care Team (Late st Contact Info) Description 01/19/2020 Telephone Cardiology at [address] [phone] Irma Uribe, RN Other (itchy rash) Social History Tobacco Use Types Packs/Day Years [...] encounter Miscellaneous Notes * Telephone Encounter - Irma Uribe, RN - 01/19/2020 4:54 PM EDT Call from Heike,requesting direction/treatment for an itchy rash that happens mostly at night. Explained the need to review this with her PCP/PCP Nurse to discuss any OTC medication or need to be assessed . Heike is agreeable to this ,expresses good understanding. States she thinks this reaction may be from one of her medications,explained this cannot be assumedas skin reactions/irritations can occur from many different reasons. documented in this encounter Plan of Treatment Upcoming Encounters Date Type Department Care Team (Late st Contact Info) Description 07/07/2024 11:00 AM EDT Office Visit Cardiology at [address] [facility] [place] [address] Lorena Lawrence MD [facility] [place] [address] documented as of this encounter Visit Diagnoses Not on filedocumented in this encounter Care Teams Permastone Installer Relationship Specialty Start Date End Date Henrietta Null MD [facility] [address] [place] [address] PCP - General 12/20/10 05/08/20 documented as of this encounter
--- OUTSIDE RECORDS SUMMARY | 2024-04-23 12:14 | XMS_ITS | Encounter Summary ---
Author Organization [facility] [place] [address] Care Team Providers Care Account Installation Specialist Name Role Phone Henrietta Null MD Primary Care Provider [phone] Encounter Details Date Type Department Care Team (Late st Contact Info) Description 06/01/2021 11:40 AM EDT Office Visit Cardiology at [address] [phone] [facility] [place] [address] Stress-induced cardiomyopathy; LBBB (left bundle branch block) Social History [...] Sign Reading Time Taken Comments Blood Pressure 122/51 06/01/2021 11:49 AM EDT Pulse 60 06/01/2021 11:49 AM EDT Temperature - - Respiratory Rate - - Oxygen Saturation - - Inhaled Oxygen Concentration - - Weight 53.1 kg (117 lb) 06/01/2021 11:4 9 AM EDT per patient home scale Height - - Body Mass Index 24.39 02/09/2021 11:27 AM EDT documented in this encounter Progress Notes * Lorena Lawrence MD - 06/01/2021 11:40 AM EDT CARDIOLOGY OUTPATIENT FOLLOW-UP NOTE PRIMARY CARE PROVIDER: Henrietta Null MD REFERRING PROVIDER: Henrietta Null PROBLEM LIST: Patient Active Problem List Diagnosis ??? Stress-induced cardiomyopathy ??? Acute non-ST segment elevation myocardial infarction Repeat Echo 04/07 - no WMA. EF 56% ??? Other specified aftercare following surgery ??? Skin lesion of hand ??? Nevus, atypical - foot ??? Trigger fingers, left thumb and ring, right ring ??? Preventative health care DT: Tdap 12/13/08 (from scanned pcp records in [facility]) Pneumovax: 2009 Influenza:2012 Shingles: 2011 Cigarettes: none Alcohol: none Caffeine:little Exercise: active in job, treadmill 1/2 Seat Belts: consistent Helmets:consistent Cholesterol (Total/HDL/LDL): Lab Results Component Value Date CHLPL 260* 01/28/2014 HDL 64 01/28/2014 TRIG 114 01/28/2014 LDLCHOL 173* 01/28/2014 Diabetes Screenin 2013 Optho Screening: recent Calcium/Vitamin D: adequate Colon Cancer Screening: Colonoscopy 03/12 + health system Osteoporosis Screening: Dexa 2012, lowest - 3.1 spine, hip within osteopenic range Breast Cancer Screening: Mammogram 01/10 neg Self Breast Exam: Yes Cervical Cancer Screening: Pap smear 11/2008, never with abnl Sexual History: not sexually active Control:n/a HIV Status: unknown Advanced Directives: No ??? Ovarian fibroma ??? Osteoporosis On drug holiday, no change in bone density on 04/14 DEXA scan, [facility] -3.2 in spine >-2.5 in hip. ??? Trigeminal neuralgia Taking inositol daily and tapering down on her tegretol. MEDICATIONS: Current Outpatient Medications Medication Sig Dispense Refill ??? furosemide (Lasix) 20 mg Tablet Take 20 mg by mouth every other day. Per patient restarted before March, but unsure of details ??? metoprolol succinate XL (Toprol-XL) 25 mg Tablet Sustained Release 24 hr take 1 tablet by mouthonce daily 90 tablet 3 ??? UNABLE TO FIND Probiotic Daily 50 billion cell, One daily ??? ipratropium (ATROVENT HFA) 17 mcg/actuation HFA Aerosol Inhaler Inhale 2 puffs into the lungs 2times daily. 1 Inhaler 12 ??? carBAMazepine (TEGretol) 200 mg Tablet Take 200 mg by mouth 3 times daily. ??? CALCIUM LACTATE ORAL Take 1 tablet by mouth daily. ??? INOSITOL ORAL Take 1 tablet by mouth 2 times daily. ??? cholecalciferol, Vitamin D3, (VITAMIN D) 1,000 unit Tab tablet Take 1 tablet by mouth daily. No current facility-administered medications for this visit. Subjective: Patient ID: Heike Ramires is a 76 y.o. female. HPI this 76-year-old woman presents for routine cardiac follow-up. She has felt well since her last visit. She did have an emergency room visit after she was stung by a bee and developed marked swelling of that arm. 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 She enjoys it. She does not experience exertional chest discomfort or shortness of breath As noted she was diagnosed with stress-induced cardiomyopathy. Cardiac catheterization disclosed noevidence of obstructive coronary disease. She had a follow-up echocardiogram a year ago that showednormalization of left ventricular function Primary care advised her to keep taking low-dose furosemide, reportedly to keep her weight under 120. She has had no edema, no shortness of breath, no exertional symptoms suggestive of angina Review of Systems Cardiovascular: Negative for chest pain, dyspnea on exertion, leg swelling and palpitations. Respiratory: Negative for shortness of breath. All [...] on file Social History Narrative Lives in [place], with her . 4 children ([place], [facility], [facility], next door). 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 Enjoying cooking, gardening, swimming. No tob No etoh rare caffeine (tea) exercise at work only Father age 88, + cerebral aneurysm, also with AAA Mother age 40 with SLE Colon Cancer - sister Pancreatic Duct cancer? - sister, also with COPD Brother - from trauma, pt relates to etoh Sister - diverticulitis Sister - alzheimer's Social Determinants of Health Financial Resource Strain: ??? Difficulty of Paying Living Expenses: Not on file Food Insecurity: ??? Worried About Running Out of Food in the Last Year: Not on file ??? Ran Out of Food in the Last Year: Not on file Transportation Needs: ??? Lack of Transportation (Medical): Not on file ??? Lack of Transportation (Non-Medical): Not on file Physical Activity: ??? Days of Exercise per Week: Not on file ??? Minutes of Exercise per Session: Not on file Objective: Physical Exam Vitals and nursing note reviewed. Constitutional: Comments: Petite woman, energetic, looks younger than stated age Eyes: Extraocular Movements: Extraocular movements intact. Neck: Comments: No neck vein distention normal carotids no bruits Cardiovascular: Comments: Heart is regular without murmur or gallop Pulmonary: Effort: Pulmonary effort is normal. Breath sounds: Normal breath sounds. Abdominal: General: Abdomen is flat. Musculoskeletal: Comments: No peripheral edema, intact distal pulses Skin: General: Skin is warm and dry. EKG was not performed today. The patient has a chronic left bundle branch block Assessment and Plan: #1. Stress-induced cardiomyopathy. The patient is not experiencing any cardiac symptoms. She does not have any fixed obstructive coronary disease. Her last left ventricular systolic function was normal in summer 2019 I see no indication for her to take chronic Lasix, unless edema or other concerns are felt to be present No medication changes or testing was advised She was encouraged to keep up her level of activity We will plan follow-up in 1 year, sooner should new questions or concerns arise Thank you for the opportunity to participate in this patient's cardiovascular care. All questions were answered and I look forward to the next visit. documented in this encounter Plan of Treatment Upcoming Encounters Date Type Department Care Team (Late st Contact Info) Description 07/07/2024 11:00 AM EDT Office Visit Cardiology at [address] [phone] [facility] [place] [address] documented as of this encounter Visit Diagnoses Diagnosis Stress-induced cardiomyopathy Takotsubo syndrome LBBB (left bundle branch block) Other left bundle branch block documented in this encounter Care Teams Account Installation Specialist Relationship Specialty Start Date End Date Henrietta Null MD [facility] [place] [address] PCP - General General Internal Medicine 10/03/2003/31 documented as of this encounter
--- OUTSIDE RECORDS SUMMARY | 2024-04-23 12:14 | XMS_ITS | Encounter Summary ---
Author Organization [facility] [place] [address] Care Team Providers Care Spring Former Name Role Phone Isauro Beltran MD Primary Care Provider [phone] Reason for Visit * Reason Comments Other Re-establish care - acute tergemnanolnaralga Encounter Details Date Type Department Care Team (Late st Contact Info) Description 09/15/2020 10:00 AM EST Office Visit Internal Medicine at [address] [facility] [place] [address] Trigeminal neuralgia; Medication monitoring encounter; Gastroesophageal reflux disease, unspecified whether esophagitis present Social History Tobacco Use Types Packs/Day Years [...] Sign Reading Time Taken Comments Blood Pressure 134/51 09/15/2020 10:05 AM EST Pulse 58 09/15/2020 10:05 AM EST Temperature 36.7 ??C (98 ??F) 09/15/2020 10:05 AM EST Respiratory Rate - - Oxygen Saturation 100% 09/15/2020 10:05 AM EST Inhaled Oxygen Concentration - - Weight 54.3 kg (119 lb 9.6 oz) 09/15/2020 10:05 AM EST Height 147.5 cm (4' 10.07) 09/15/2020 10:05 AM EST Body Mass Index 24.94 09/15/2020 10:05 AM EST documented in this encounter Patient Instructions * Patient Instructions* Henrietta Null MD - 09/15/2020 10:00 AM EST Images from the original note were not included. Patient Education Gastroesophageal Reflux Disease (GERD): Care Instructions Overview Gastroesophageal reflux disease (GERD) is the backward flow of stomach acid into the esophagus. Theesophagus is the tube that leads from your throat to your stomach. A one-way valve prevents the stomach acid from backing up into this tube. But when you have GERD, this valve does not close tightly enough. This can also cause pain and swelling in your esophagus. (This is called esophagitis.) If you have mild GERD symptoms including heartburn, you may be able to control the problem with antacids or xjmr-eyk-vvonprj medicine. You can also make lifestyle changes to help reduce your symptoms. These include changing your diet and eating habits, such as not eating late at night and losing weight. Follow-up care is a [place] part of your treatment and safety. Be sure to make and go to all appointments, and call your doctor if you are having problems. It's also a good idea to know your test resultsand keep a list of the medicines you take. How can you care for yourself at home? ?? Take your medicines exactly as prescribed. Call your doctor if you think you are having a problem with your medicine. ?? Your doctor may recommend ktif-pyj-ovajvol medicine. For mild or occasional indigestion, antacids, such as Tums, Gaviscon, Mylanta, or Maalox, may help. Your doctor also may recommend urxk-yhg-lqiozaq acid reducers, such as famotidine (Pepcid AC), cimetidine (Tagamet HB), or omeprazole (Prilosec). Read and follow all instructions on the label. If you use these medicines often, talk with your doctor. ?? Change your eating habits. ? It's best to eat several small meals instead of two or three large meals. ? After you eat, wait 2 to 3 hours before you lie down. ? Chocolate, mint, and alcohol can make GERD worse. ? Spicy foods, foods that have a lot of acid (like tomatoes and oranges), and coffee can make GERD symptoms worse in some people. If your symptoms are worse after you eat a certain food, you may wantto stop eating that food to see if your symptoms get better. ?? Do not smoke or chew tobacco. Smoking can make GERD worse. If you need help quitting, talk to your doctor about stop-smoking programs and medicines. These can increase your chances of quitting forgood. ?? If you have GERD symptoms at night, raise the head of your bed 6 to 8 inches by putting the frame on blocks or placing a foam wedge under the head of your mattress. (Adding extra pillows does not work.) ?? Do not wear tight clothing around your middle. ?? Lose weight if you need to. Losing just 5 to 10 pounds can help. When should you call for help? Call your doctor now or seek immediate medical care if: ? You have new or different belly pain. ? Your stools are black and tarlike or have streaks of blood. Watch closely for changes in your health, and be sure to contact your doctor if: ? Your symptoms have not improved after 2 days. ? Food seems to catch in your throat or chest. Where can you learn more? Visit our health information library at [email or web address] You can also view health information on [email or web address], your personal patient account. Log in or sign uptoday. Enter T927 in the search box to learn more about Gastroesophageal Reflux Disease (GERD): Care Instructions. Current as of: January 12, 2020?Content Version: 12.7 ?? [id number] [email or web address]. Care instructions adapted under license by [facility]. If you have questions about a medical condition or this instruction, always ask your healthcare professional. [email or web address] disclaims any warranty or liability for your use of this information. documented in this encounter Progress Notes * Henrietta Null MD - 09/15/2020 10:00 AM EST ESTABLISHED PATIENT FOLLOW-UP VISIT Chief Complaint Patient presents with ??? Other Re-establish care - acute tergemnanolnaralga Pt is a 75 y.o. female who presents for scheduled follow up visit. Medical Issues include: - had worsening of trigeminal neuralgia - saw Dr. Beltran in [place]. He prescribed 100 tid of tegretol. Now on 200 tid with improvement in pain at higher dose. Recalls being told by neurologist thathe needs to be on tegretol for 2 weeks prior to starting back inositol which had worked well for her in the past. - increased sob/wheezing - seen at [facility]. Treated with nebulizer with improvement. Given inhaler but doesn't feel that it helps as much. Breathing is still difficult. Never with lung issues before. No changes at home. No new pets. No new meds. Generally with going outside. Better in thesummer time. ++ PND. Has used flonase that was given to her without improvement. ++ heartburn - allthe time. Can't eat pork or acidic foods. Taking tums with some improvement. - stress induced cardiomyopathy - saw Cardiology in [place] - Leslie Dowd. She wanted pt to take metoprolol, but pt stopped it when she was thinking her tegretol not work. ROS: Constitutional - no fevers, chills, weight loss or gain, fatigue HEENT - No difficulty swallowing, hearing, No nasal congestion/postnasal drip Respiratory - No new SOB, KRUGER, wheeze, cough, sputum production Cardiovascular - No new CP, palpitations, angina, edema, claudication Gastrointestinal - No new abdominal pain, nausea, GERD, constipation, diarrhea, blood in stool - no new difficulty urinating, incontinence or dysuria. Musculoskeletal - No new weakness, pain at rest or with movement Skin - no new rashes All other systems negative Current Outpatient Medications on File Prior to Visit Medication Sig Dispense Refill ??? carBAMazepine (TEGretol) 200 mg Tablet Take 200 mg by mouth 3 times daily. ??? CALCIUM LACTATE ORAL Take 1 tablet by mouth daily. ??? metoprolol succinate XL (Toprol XL) 25 mg Tablet Sustained Release 24 hr Take 1 tablet by mouthdaily. (Patient not taking: Reported on 09/15/2020) 90 tablet 3 ??? INOSITOL ORAL Take 1 tablet by mouth 2 times daily. ??? cholecalciferol, Vitamin D3, (VITAMIN D) 1,000 unit Tab tablet Take 1 tablet by mouth daily. (Patient not taking: Reported on 09/15/2020) ??? cyanocobalamin (VITAMIN B-12) 1,000 mcg tablet (Patient not taking: No sig reported) No current facility-administered medications on file prior [...] Acute non-ST segment elevation myocardial infarction I21.4 Social History Social History Narrative Lives in [place], with her . 4 children ([facility], [facility], next door). 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 Enjoying cooking, gardening, swimming. No tob No etoh rare caffeine (tea) exercise at work only Father age 88, + cerebral aneurysm, also with AAA Mother age 40 with SLE Colon Cancer - sister Pancreatic Duct cancer? - sister, also with COPD Brother - from trauma, pt relates to etoh Sister - diverticulitis Sister - alzheimer's Physical Exam: Vitals: 09/15/20 1005 BP: 134/51 BP Location (NBP): Left arm Patient Position: Sitting BP Cuff Sizes: Adult (25-34 cm) Pulse: 58 Temp: 36.7 ??C (98 ??F) TempSrc: Oral SpO2: 100% Weight: 54.3 kg (119 lb 9.6 oz) Height: 147.5 cm (4' 10.07) Wt Readings from Last 3 Encounters: 09/15/20 54.3 kg (119 lb 9.6 oz) 05/09/20 52.9 kg (116 lb 9.6 oz) 02/18/20 53.7 kg (118 lb 6.4 oz) General - No acute distress. Appears comfortable. ENT - Mouth moist without lesions. Eyes- EOMI. Not jaundiced. Noninjected Neck - No lymphadenopathy. No thyromegaly Lungs - Clear to auscultation. Heart - RRR, S1,S2, no audible murmur, gallop or rub. Abdomen/GI - Soft, nontender, normal active bowel sounds Extremities - No edema. Pulses intact. Assessment and Plan: Heike was seen today for evaluation. Diagnoses and all orders for this visit: Trigeminal neuralgia - better with recent restart of tegretol. Would like to start inosital which she has responded to in the past. Will check labs to assess effect of tegretol. - Comprehensive metabolic panel (non-fasting); Future - inhalational spacing device Spacer; Use as directed by pharmacist with albuterol mdi. - Carbamazepine level, total; Future - CBC (with Diff); Future - CBC (with Diff) - Carbamazepine level, total - Comprehensive metabolic panel (non-fasting) - Hemogram - Differential, Automated Medication monitoring encounter - as above - Carbamazepine level, total; Future - CBC (with Diff); Future - CBC (with Diff) - Carbamazepine level, total - Hemogram - Differential, Automated Gastroesophageal reflux disease, unspecified whether esophagitis present - new symptoms. Provided information on GERD. Recommend trial of prilosec. - omeprazole (PriLOSEC) 40 mg Capsule, Delayed Release(E.C.); Take 1 capsule by mouth daily. 30 minutes before dinner 20 of 25 minutes spent in direct htny-eh-aiye counseling and the rest in taking history and planning management. documented in this encounter Plan of Treatment Upcoming Encounters Date Type Department Care Team (Late st Contact Info) Description 07/07/2024 11:00 AM EDT Office Visit Cardiology at [address] [place] [id number] Lorena Lawrence MD [facility] [place] [id number] documented as of this encounter Procedures Procedure Name Priority Date/Time Associated Diagnosis Comments HEMOGRAM Routine 09/15/2020 11:08 AM EST Trigeminal neuralgia Medication monitoring encounter DIFFERENTIAL, AUTOMATED Routine 09/15/2020 11:08 AM EST Trigeminal neuralgia Medication monitoring encounter HC VENIPUNCTURE Routine 09/15/2020 11:08 AM EST Trigeminal neuralgia Medication monitoring encounter HC CARBAMAZEPINE LEVEL Routine 0 11:08 AM EST Trigeminal neuralgia Medication monitoring encounter COMPREHENSIVE METABOLIC PANEL (NON-FASTING) Routine 09/15/2020 11:08 AM EST Trigeminal neuralgia documented in this encounter Results * Differential, Automated (09/15/2020 11:08 AM EST) Neutrophils % 65.0 % [facility] Neutr Abs (ANC) 3.50 1.70 - 6.10 x10(3)/[facility] Lymphocytes % 21.0 % [facility] Lymphocytes Abs 1.1 0.9 - 3.2 x10(3)/[facility] Monocytes % 8.2 % [facility] Monocyte Abs 0.4 0.3 - 0.9 x10(3)/[facility] Eosinophils % 4.3 % [facility] Eosinophils Abs 0.2 0.0 - 0.4 x10(3)/[facility] Basophils % 0.9 % [facility] Basophils Abs 0.0 0.0 - 0.1 x10(3)/[facility] Immature Gran % 0.60 % [facility] Comment: Immature granulocytes(IG's)percentage and absolute count will include metamyelocytes, myelocytes, and promyelocytes. Blood smears from CBCs yielding IG's will be scanned manually for concordance. If this scan disagrees with the automated IG or if promyelocytes are noted, a manual differential will be performed. Anne Gran Abs 0.03 0.00 - 0.04 x10(3)/[facility] Blood specimen (specimen) 09/15/2020 11:08 AM EST 09/15/2020 12:44 PM EST Narrative Resulting Agency Comment Spec In Lab Henrietta Null MD HEMATOLOGY ORDERABLE S Performing Organization Address City/State/[facility] Co de Phone Number [facility] [place] [place] [address] * Hemogram (09/15/2020 11:08 AM EST) WBC 5.4 4.0 - 9.5 x10(3)/[facility] RBC 4.15 4.00 - 5.21 x10(6)/[facility] Hemoglobin 12.1 11.7 - 15.5 gm/dL [facility] Hematocrit 37.9 35.7 - 45.8 % [facility] MCV 91.3 82.6 - 94.4 fL [facility] MCH 29.2 27.1 - 32.0 pg [facility] MCHC 31.9 31.7 - 35.0 gm/dL [facility] Platelets 252 145 - 357 x10(3)/[facility] RDWSD 42.0 37.0 - 46.0 [facility] RDWCV 12.6 11.5 - 14.1 % [facility] MPV 9.3 7.6 - 12.9 [facility] nRBC % Auto 0.0 % [facility] nRBC Abs Auto 0.000 0.000 - 0.000 x10(3)/[facility] Blood specimen (specimen) 09/15/2020 11:08 AM EST 09/15/2020 12:44 PM EST Narrative Resulting Agency Comment Spec In Lab Henrietta Null MD HEMATOLOGY ORDERABLE S Performing Organization Address City/[facility] Co de Phone Number [facility] [place] [address] * (ABNORMAL) Carbamazepine level, total (09/15/2020 11:08 AM EST) Pathologist [facility] Carbamazepine Lvl 5.9(L) 8.0 - 12.0 mg/L [facility] Comment: Therapeutic range: ??8-12 mg/L Toxic: ??>/= 15 mg/L Blood specimen (specimen) 09/15/2020 11:08 AM EST 09/15/2020 7:08 PM EST Narrative Resulting Agency Comment Spec In Lab Henrietta Null MD CHEMISTRY ORDERABLES Performing Organization Address [facility] Co de Phone Number [facility] [address] * (ABNORMAL) Comprehensive metabolic panel (non-fasting) (09/15/2020 11:08 AM EST) [facility] Glucose Lvl 87 65 - 199 mg/dL [facility] Comment:Diabetes: >=200 mg/d L plus symptoms BUN 16 8 - 18 mg/dL [facility] Creatinine 0.64(L) 0.70 - 1.20 mg/dL [facility] Sodium 136 135 - 145 mmol/L [facility] Potassium 4.2 3.5 - 5.0 mmol/L [facility] Comment: Please note: ??Patients with WBC >100,000 may have falsely elevated Potassium levels. ??For accurate Potassium quantification in these patients send serum separator tube (gold top) for subsequent determinations. ??Contact the Clinical Chemistry Laboratory if there are any questions. Chloride 100 98 - 107 mmol/L [facility] CO2 27 22 - 31 mmol/L [facility] Anion Gap 9 5 - 15 mmol/L [facility] Calcium 9.3 8.5 - 10.5 mg/dL [facility] Total Protein 6.8 6.1 - 8.0 gm/dL [facility] Albumin 4.4 3.2 - 5.2 gm/dL [facility] AST 18 0 - 30 unit/L [facility] ALT 17 0 - 30 unit/L [facility] Alk Phos 116(H) 35 - 105 unit/L [facility] Total Bilirubin 0.2 0.2 - 1.3 mg/dL [facility] Estimated GFR 87 >=60 mL/min/1. 73 m?? [facility] Comment: This patient? s estimated glomerular filtration rate (eGFR) is between 87 mL/min/1.73 m2 (patients with less muscle mass) and 101 mL/min/1.73 m2 (patients with more muscle mass) as determined by the CKD-EPI equation. Assessment of eGFR is not appropriate when creatinine concentrations are rapidly changing. For clinical decisions where creatinine clearance will affect therapy, a 24-hour urine creatinine clearance may be advised. Assignment of CKD stage 1 ? 5 for patients with an eGFR near the transition point between stages may be based on clinical assessment of muscle mass and symptoms in addition to eGFR. Blood specimen (specimen) 09/15/2020 11:08 AM EST 09/15/2020 12:48 PM EST Narrative Resulting Agency Comment Spec In Lab Henrietta Null MD CHEMISTRY ORDERABLES [facility] [place] [place] [address] documented in this encounter Visit Diagnoses Diagnosis Trigeminal neuralgia Medication monitoring encounter Encounter for therapeutic drug monitoring Gastroesophageal reflux disease, unspecified whether esophagitis present documented in this encounter Care Teams Spring Former Relationship Specialty Start Date End Date Isauro Beltran MD [address] [place] [address] PCP - General Internal Medicine 05/09/20 10/02/20 documented as of this encounter
--- OUTSIDE RECORDS SUMMARY | 2024-04-23 12:14 | XMS_ITS | Encounter Summary ---
Author Organization [facility] [place] [address] Care Team Providers Care Teacher Of The Deaf Name Role Phone Isauro Beltran MD Primary Care Provider + [phone] Reason for Visit * Reason Onset Date Comments Other 03/21/2020 Encounter Details Date Type Department Care Team (Late st Contact Info) Description 03/21/2020 Telephone Internal Medicine at [address] [id number] Roseann Pitts Other Social History Tobacco Use Types Packs/Day [...] * Telephone Encounter - Roseann Pitts - 03/21/2020 2:32 PM EDT Message: Carol called asking for the patient's records. Carol sent a fax back in January and would liketo get the records. Please contact back to discuss. Ask caller their first and last name and [facility] Best time to call back: any Ok to leave a message: y Ok to send my- message: Offered Appointment: MA/Nurse/Poultry Hatchery Manager contacted via: Message: y Call: n Pager: n documented in this encounter Plan of Treatment Upcoming Encounters Date Type Department Care Team (Late st Contact Info) Description 07/07/2024 11:00 AM EDT Office Visit Cardiology at [address] [place] [address] Lorena Lawrence MD [facility] [place] [address] documented as of this encounter Visit Diagnoses Not on filedocumented in this encounter Care Teams Teacher Of The Deaf Relationship Specialty Start Date End Date Isauro Beltran MD [address] [place] [address] PCP - General Internal Medicine 05/09/20 10/02/20 documented as of this encounter
--- OUTSIDE RECORDS SUMMARY | 2024-04-23 12:14 | XMS_ITS | Encounter Summary ---
Author Organization [facility]ly [facility] Scout [place] [address] Care Team Providers Care Automotive Sales Associate Name Role Phone Isauro Beltran MD Primary Care Provider [phone] Reason for Visit * Reason Comments Cardiomyopathy Encounter Details Date Type Department Care Team (Latest Contact Info) Description 05/09/2020 8:20 AM EDT Office Visit Cardiology at [address] [place] [address] Lorena Lawrence MD [facility] [place] [address] Acute non-ST segment elevation myocardial infarction; Stress-induced cardiomyopathy Social History Tobacco Use Types [...] Sign Reading Time Taken Comments Blood Pressure 124/46 05/09/2020 8:40 AM EDT Pulse 55 05/09/2020 8:40 AM EDT Temperature 36.1 ??C (97 ??F) 05/09/2020 8:40 AM EDT Respiratory Rate 18 05/09/2020 8:40 AM EDT Oxygen Saturation - - Inhaled Oxygen Concentration - - Weight 52.9 kg (116 lb 9.6 oz) 05/09/2020 8:40 A M EDT Height 148.6 cm (4' 10.5) 05/09/2020 8:40 AM ED T Body Mass Index 23.95 05/09/2020 8:40 AM EDT documented in this encounter Progress Notes * Lorena Lawrence MD - 05/09/2020 8:20 AM EDT CARDIOLOGY OUTPATIENT FOLLOW-UP NOTE PRIMARY CARE PROVIDER: Isauro Beltran MD REFERRING PROVIDER: Henrietta Null PROBLEM LIST: [...] none Caffeine:little Exercise: active in job, treadmill 09/30 Seat Belts: consistent Helmets:consistent Cholesterol (Total/HDL/LDL): Lab Results Component Value Date CHLPL 260* 01/28/2014 HDL 64 01/28/2014 TRIG 114 01/28/2014 LDLCHOL 173* 01/28/2014 Diabetes Screenin 2013 Optho Screening: recent Calcium/Vitamin D: adequate Colon Cancer Screening: Colonoscopy 03/12 + [facility] Osteoporosis Screening: Dexa 2012, lowest - 3.1 [...] Outpatient Medications Medication Sig Dispense Refill ??? metoprolol succinate XL (Toprol XL) 25 mg Tablet Sustained Release 24 hr Take 1 tablet by mouthdaily. 90 tablet 3 ??? furosemide (Lasix) 20 mg Tablet Take 1 tablet by mouth every other day. 30 tablet 2 ??? CALCIUM LACTATE ORAL Take 1 tablet by mouth daily. ??? INOSITOL ORAL Take 1 tablet by mouth 2 times daily. ??? cholecalciferol, Vitamin D3, (VITAMIN D) 1,000 unit Tab tablet Take 1 tablet by mouth daily. ??? cyanocobalamin (VITAMIN B-12) 1,000 mcg tablet (Patient taking differently: Take 1,000 mcg by mouth daily.) No current facility-administered medications for this visit. Subjective: Patient ID: Heike Ramires is a 75 y.o. female. HPI This 75-year-old woman presents for routine follow-up. She has been feeling well since her last visit. She denies experiencing chest discomfort, difficulty breathing, dizziness palpitations lightheadedness syncope or near syncope An echocardiogram was just repeated and shows normalization of left ventricular systolic function. There are no longer any apical wall motion abnormalities She is requesting to reduce or stop medication if at all possible She continues to work regularly without limitation Review of System Review of Systems All [...] file Occupational History ??? Not on file Social Needs ??? Financial resource strain: Not on file ??? Food insecurity Worry: Not on file Inability: Not on file ??? Transportation needs Medical: Not on file Non-medical: Not on file Tobacco Use ??? Smoking status: Never Smoker ??? Smokeless tobacco: Never Used Substance and Sexual Activity ??? Alcohol use: No ??? Drug use: No ??? Sexual activity: Yes Partners: Male Lifestyle ??? Physical activity Days per week: Not on file Minutes per session: Not on file ??? Stress: Not on file Relationships ??? Social connections Talks on phone: Not on file Gets together: Not on file Attends faith service: Not on file Active member of club or organization: Not on file Attends meetings of clubs or organizations: Not on file Relationship status: Not on file ??? Intimate partner violence Fear of current or ex partner: Not on file Emotionally abused: Not on file Physically abused: Not on file Forced sexual activity: Not on file Other Topics Concern ??? Not on file Social History Narrative Lives in [place], with her . 4 children ([place], [facility], [facility], next door). 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 Enjoying cooking, gardening, swimming. No tob No etoh rare caffeine (tea) exercise at work only Father age 88, + cerebral aneurysm, also with AAA Mother age 40 with SLE Colon Cancer - sister Pancreatic Duct cancer? - sister, also with COPD Brother - from trauma, pt relates to etoh Sister - diverticulitis Sister - alzheimer's Objective: Physical Exam Vitals signs and nursing note reviewed. Constitutional: Comments: Petite, looks younger than stated age no acute distress Eyes: Extraocular Movements: Extraocular movements intact. Pupils: Pupils are equal, round, and reactive to light. Neck: Musculoskeletal: Normal range of motion and neck supple. Vascular: No carotid bruit. Cardiovascular: Rate and Rhythm: Normal rate and regular rhythm. Pulses: Normal pulses. Heart sounds: No murmur. No gallop. Pulmonary: Effort: Pulmonary effort is normal. Breath sounds: Normal breath sounds. Abdominal: Tenderness: There is no abdominal tenderness. Musculoskeletal: Right lower leg: No edema. Left lower leg: No edema. Skin: General: Skin is warm and dry. Assessment and Plan: #1. Non-ST elevation myocardial infarction. Fortunately cardiac catheterization did not disclose any significant obstructive coronary disease #2. Stress-induced cardiomyopathy. Her left ventricular wall motion abnormalities have resolved andLV function is now normal It is reasonable that she discontinue furosemide at this time. I have asked her to continue metoprolol for now We will plan follow-up in approximately 1 year, sooner as needed Thank you for the opportunity to participate in this patient's cardiovascular care. All questions were answered and I look forward to the next visit. documented in this encounter Plan of Treatment Upcoming Encounters Date Type Department Care Team (Late st Contact Info) Description 07/07/2024 11:00 AM EDT Office Visit Cardiology at [address] [place] [address] Lorena Lawrence MD [facility] [place] [address] documented as of this encounter Visit Diagnoses Diagnosis Acute non-ST segment elevation myocardial infarction Acute myocardial infarction, unspecified site, episode of care unspecified Stress-induced cardiomyopathy Takotsubo syndrome documented in this encounter Care Teams Automotive Sales Associate Relationship Specialty Start Date End Date Isauro Beltran MD [address] [place] [address] PCP - General Internal Medicine 05/09/20 10/02/20 documented as of this encounter
--- OUTSIDE RECORDS SUMMARY | 2024-04-23 12:14 | XMS_ITS | Encounter Summary ---
Author Organization [facility] [place] [address] Care Team Providers Care Research And Development Chemist Name Role Phone Henrietta Null MD Primary Care Provider [phone] Reason for Visit * Reason Comments Medication Refill Encounter Details Date Type Department Care Team (Late st Contact Info) Description 03/18/2021 Refill Cardiology at [address] [phone] Lorena Lawrence MD [facility] [place] [address] Medication Refill Social History Tobacco Use Types [...] AM EDT Office Visit Cardiology at [address] [phone] Lorena Lawrence MD [facility] [place] [address] documented as of this encounter Visit Diagnoses Diagnosis Stress-induced cardiomyopathy Takotsubo syndrome documented in this encounter Care Teams Research And Development Chemist Relationship Specialty Start Date End Date Henrietta Null MD [facility] [place] [address] PCP - General General Internal Medicine 10/03/2003/31 documented as of this encounter
--- OUTSIDE RECORDS SUMMARY | 2024-04-23 12:14 | XMS_ITS | Encounter Summary ---
[place] [address] Care Team Providers Care Tub Rider Name Role Phone Henrietta Null MD Primary Care Provider [phone] Reason for Visit * Reason Onset Date Comments Other 01/10/2020 post hospital DC questions Encounter Details Date Type Department Care Team (Late st Contact Info) Description 01/10/2020 Telephone Cardiology at [address] [phone] Irma Uribe, RN Other (post hospital DC questions) Social History Tobacco Use Types Packs/Day Years [...] Telephone Encounter - Irma Uribe, RN - 01/11/2020 4:05 PM EDT 01/11/20 Voice message from patient's daughter Imelda : States Heike had been taking her medications incorrectly prior to call 01/10/20,she had been taking cozaar and metoprolol succinate together in the morning and lasix in the evening. Imelda instructed her is correct dosing,cozaar in the evening and metoprolol in the morning,hold lasix. Heike did not hold the lasix,took it this morning . This morning B/P 105/50 heart rate 84,Po2 93 % and temp 98.6 This afternoon B/P 109/65 heart rate 81, Po2 97% States Heike is feeling better today but has noted some loose stools,not watery. Talking oral fluids well aware of 1.5 liter intake request ,not to exceed 2 liters. Weight 115 Daughter will request Heike hold her lasix 01/12/20,avoid high fiber foods,include foods that lightly bind(cheese etc),will seek urgent/emergent assessment with any changes or worsening of symptoms. This RN will ask Lucy Matos RN to follow up with Daughter 01/11 to assess patient status,report to be updated to Tiffani Phillip APRN. * Telephone Encounter - Irma Uribe RN - 01/10/2020 1:49 PM EDT Call from pt's daughter Imelda,states Heike was discharged from [facility] 2 days ago and has experienced daily lightheadedness,dizziness and fatigue (these symptoms were noted in the hospital and since discharge home,not worse but no improvement). 01/08/20 B/P 126/60 pulse 83 weight 118 01/09/20 B/P 116/68 pulse 80 weight 116 Temp today 98.6 Imelda states her mother is hydrating normally,no other adverse symptoms reported,Imelda is concernedabout the daily grogginess and fatigue as this relates to increased fall risk. Patient resides with spouse. Taking meds as directed: Losartan 25 mg each pm Lasix 20 mg and metoprolol succinate 25 mg in the morning. Imelda has discussed these symptoms with PCP,states she was instructed to encourage rest and fluids. Imelda will be contacting Dr Salas' office in [place] to arrange the 7-10 day post hospital DC follow up. Page out to Tiffani Phillip APRN Reply from Tiffani Phillip APRN,discussed above,Tiffani is requesting Heike hold the lasix and make sure she is getting at least 1.5 liters of fluid/day being careful not to exceed 2 liters/day . Call to patients daughter Imelda,explained above,she expresses good understanding and will instruct her mother is this direction. This RN will plan to contact Imelda tomorrow 01/10 for update,Imelda will seek urgent /emergent care for Heike should her symptoms worsen/change . documented in this encounter Plan of Treatment Upcoming Encounters Date Type Department Care Team (Late st Contact Info) Description 07/07/2024 11:00 AM EDT Office Visit Cardiology at [address] [facility] [place] [address] [facility] [place] [address] documented as of this encounter Visit Diagnoses Not on filedocumented in this encounter Care Teams Tub Rider Relationship Specialty Start Date End Date Henrietta Null MD [facility] [address] [place] [address] PCP - General 12/20/10 05/08/20 documented as of this encounter
--- OUTSIDE RECORDS SUMMARY | 2024-04-23 12:14 | XMS_ITS | Encounter Summary ---
Author Organization [facility] [place] [address] Care Team Providers Care Computer Engineering Professor Name Role Phone Henrietta Null MD Primary Care Provider [phone] Encounter Details Date Type Department Care Team (Latest Contact Info) Description 10/17/2020 9:45 AM EST Laboratory Appointment Lab [facility]L [facility] [place] [phone] Need for hepatitis C screening test Social History Tobacco Use Types Packs/Day Years [...] 11:00 AM EDT Office Visit Cardiology at [address] [place] [phone] Lorena Lawrence MD [facility] [place] [address] documented as of this encounter Procedures Procedure Name Priority Date/Time Associated Diagnosis Comments HC VENIPUNCTURE Routine 10/17/2020 9:54 AM EST Need for hepatitis C screening test documented in this encounter Results * Hepatitis C Antibody (10/17/2020 9:54 AM EST) Hepatitis C Ab Negative Negative [facility] Blood specimen (specimen) 10/17/2020 9:54 AM EST 10/17/2020 10:05 AM EST Narrative Resulting Agency Comment Spec In Lab Henrietta Null MD IMMUNOLOGY ORDERABLE S Performing Organization Address City/State/[facility] Co de Phone Number [facility] [place] [address] documented in this encounter Visit Diagnoses Diagnosis Need for hepatitis C screening test Special screening examination for other specified viral diseases documented in this encounter Care Teams Computer Engineering Professor Relationship Specialty Start Date End Date Henrietta Null MD [facility] [address] [place] [address] PCP - General General Internal Medicine 10/03/20 7 documented as of this encounter
--- OUTSIDE RECORDS SUMMARY | 2024-04-23 12:14 | XMS_ITS | Encounter Summary ---
Author Organization [facility] [place] [address] Care Team Providers Care Senior Financial Analyst Name Role Phone Henrietta Null MD Primary Care Provider Encounter Details Date Type Department Care Team (Late st Contact Info) Description 02/02/2020 Orders Only Cardiology [facility] [place] [address] Unknown None Social History Tobacco Use Types Packs/Day Years [...] AM EDT Office Visit Cardiology at [address] [place] [address] Lorena Lawrence MD [facility] [place] [address] documented as of this encounter Procedures Procedure Name Priority Date/Time Associated Diagnosis Comments EKG 12-LEAD Routine 02/02/2020 11:35 AM EDT documented in this encounter Results * EKG 12 Lead (02/02/2020 11:35 AM EDT) Ventricular rate 66 BPM MUSE SYSTEM Atrial Rate 66 BPM MUSE SYSTEM P-R Interval 164 ms MUSE SYSTEM QRS Duration 136 ms MUSE SYSTEM Q-T Interval 420 ms MUSE SYSTEM QTC Calculated (Bezet) 440 ms MUSE SYSTEM Calculated P [place] 57 degrees MUSE SYSTEM Calculated R [place] -32 degrees MUSE SYSTEM Calculated T [place] 103 degrees MUSE SYSTEM INTERPRETATION Normal sinus rhythm Left axis deviation Left bundle branch block Abnormal ECG When compared with ECG of 08-JAN-2020 06:37, No significant change was found Confirmed by MD Salas Daniel ([id number]) on 02/07/2020 1:25:26 PM MUSE SYSTEM 02/02/2020 11:3 5 AM EDT 02/07/2020 1:25 PM EDT Unknown ECG ORDERABLES MUSE SYSTEM documented in this encounter Visit Diagnoses Not on filedocumented in this encounter Care Teams Senior Financial Analyst Relationship Specialty Start Date End Date Henrietta Null MD [facility] [address] [place] [address] PCP - General 12/20/10 05/08/20 documented as of this encounter
--- OUTSIDE RECORDS SUMMARY | 2024-04-23 12:14 | XMS_ITS | Encounter Summary ---
Author Organization [facility] [place] [address] Care Team Providers Care Reading Tutor Name Role Phone Henrietta Null MD Primary Care Provider [phone] Reason for Visit * Reason Onset Date Comments Letter/Form 02/20/2021 Encounter Details Date Type Department Care Team (Late st Contact Info) Description 02/20/2021 Telephone Internal Medicine at [address] [address] Marvel Orozco Letter/Form Social History Tobacco Use Types Packs/Day Years [...] Telephone Encounter - Henrietta Null MD - 02/27/2021 10:23 AM EDT Phone call made to [facility]. They require pre authorization for each of their visits because I am not a provider in [place]. This information forwarded to my practice managers to review how this is currently managed in our section. * Telephone Encounter - Marvel Orozco - 02/20/2021 3:28 PM EDT Message: Patient is asking for Henrietta Null MD to call Medicare Provider Services. Patient stated that Medicare will not cover Henrietta Null MD [place] Patient stated that Medicare Provider Services can be reached at . Please call the patient back to discuss. Ask caller their first and last name and relationship to the patient: Patient Best time to call back: Afternoon Ok to leave a message: Yes Ok to send my- message: Offered Appointment: MA/Nurse/[place] contacted via: Message: Yes Call: Pager: documented in this encounter Plan of Treatment Upcoming Encounters Date Type Department Care Team (Late st Contact Info) Description 07/07/2024 11:00 AM EDT Office Visit Cardiology at [address] [place] [phone] Lorena Lawrence MD [facility] [place] [address] documented as of this encounter Visit Diagnoses Not on filedocumented in this encounter Care Teams Reading Tutor Relationship Specialty Start Date End Date Henrietta Null MD [facility] [address] [address] PCP - General General Internal Medicine 10/03/2003/31 documented as of this encounter
--- OUTSIDE RECORDS SUMMARY | 2024-04-23 12:14 | XMS_ITS | Encounter Summary ---
Author Organization [facility] [place] [address] Care Team Providers Care Washer Meat Name Role Phone Henrietta Null MD Primary Care Provider [phone] Encounter Details Date Type Department Care Team (Late Contact Info) Description 01/20/2020 External Results Internal Medicine at [address] [phone] Juliann Paez, [place] Social History Tobacco Use Types Packs/Day Years [...] AM EDT Office Visit Cardiology at [address] [place] [phone] Lorena Lawrence MD [facility] [place] [address] documented as of this encounter Procedures Procedure Name Priority Date/Time Associated Diagnosis Comments EXTERNAL LAB PRIMARY CARE RESULTS PANEL Routine 01/14/2020 7:29 AM EDT documented in this encounter Results * (ABNORMAL) Primary Care External Results (01/14/2020 7:29 AM EDT) Glucose Lvl 126.0(H) EXTERNAL LAB BUN 11 EXTERNAL LAB Creatinine 0.96 EXTERNAL LAB Sodium 141 EXTERNAL LAB Potassium 3.8 EXTERNAL LAB Chloride 102 EXTERNAL LAB CO2 30 EXTERNAL LAB Calcium 8.9 EXTERNAL LAB Anion Gap 12 EXTERNAL LAB BUN/Cre Ratio 11.3 EXTERNAL LAB Estimated GFR 68.86 EXTERNAL LAB eGFR 56.81 EXTERNAL LAB Blood specimen (specimen) 01/14/2020 7:29 AM EDT Historical Provider POINT OF CARE JIMENEZ T ORDERABLES EXTERNAL LAB documented in this encounter Visit Diagnoses Not on filedocumented in this encounter Care Teams Washer Meat Relationship Specialty Start Date End Date Henrietta Null MD [facility] [address] [place] [address] PCP - General 12/20/10 05/08/20 documented as of this encounter
--- OUTSIDE RECORDS SUMMARY | 2024-04-23 12:14 | XMS_ITS | Encounter Summary ---
Author Organization [facility] [place] [address] Care Team Providers Care Salesperson Shoes Name Role Phone Henrietta Null MD Primary Care Provider [phone] Encounter Details Date Type Department Care Team (Late Contact Info) Description 11/14/2020 Telephone Internal Medicine at [address] [address] Scooby Cochran Social History Tobacco Use Types Packs/Day Years [...] encounter Miscellaneous Notes * Telephone Encounter - Scooby Cochran - 11/14/2020 10:49 AM EST Called to schedule pt a f/u from [facility], and a med discussion. LM documented in this encounter Plan of Treatment Upcoming Encounters Date Type Department Care Team (Late Contact Info) Description 07/07/2024 11:00 AM EDT Office Visit Cardiology at [address] [place] [phone] Lorena Lawrence MD [facility] [place] [address] documented as of this encounter Visit Diagnoses Not on filedocumented in this encounter Care Teams Salesperson Shoes Relationship Specialty Start Date End Date Henrietta Null MD [facility] [place] [address] PCP - General General Internal Medicine 10/03/2003/31 documented as of this encounter
--- OUTSIDE RECORDS SUMMARY | 2024-04-23 12:14 | XMS_ITS | Encounter Summary ---
Author Organization [facility] [place] [address] Care Team Providers Care Lap Cutter Name Role Phone Henrietta Null MD Primary Care Provider [phone] Reason for Visit * Reason Comments Right Knee Pain with effusion Headache Sinusitis Encounter Details Date Type Department Care Team (Late st Contact Info) Description 02/09/2021 11:40 AM EDT Office Visit Internal Medicine at [address] [phone] Henrietta Null MD [facility] [place] [address] Effusion of right knee; Poison rudy dermatitis; Seasonal allergic rhinitis, unspecified trigger Social History Tobacco Use Types Packs/Day Years [...] Sign Reading Time Taken Comments Blood Pressure 142/59 02/09/2021 11:27 AM EDT Pulse 56 02/09/2021 11:27 AM EDT Temperature 36.4 ??C (97.5 ??F) 02/09/2021 1 1:27 AM EDT Respiratory Rate - - Oxygen Saturation 99% 02/09/2021 11: 27 AM EDT Inhaled Oxygen Concentration - - Weight 54.8 kg (120 lb 12.8 oz) 021 11:27 AM EDT Height 147.5 cm (4' 10.07) 02/09/2021 11:27 AM EDT reported Body Mass Index 25.19 02/09/2021 11:27 AM EDT documented in this encounter Patient Instructions * Patient Instructions* Henrietta Null MD - 02/09/2021 11:40 AM EDT Images from the original note were not included. - new script has been sent in for a cream for your poison rudy - trial flonase to treat your cough - call if knee pain does not improve Joint Injections: Care Instructions Your Care Instructions Joint injections are shots into a joint, such as the knee. They may be used to put in medicines, such as pain relievers. A corticosteroid, or steroid, shot is used to reduce inflammation in tendons or joints. It is oftenused to treat problems such as arthritis, tendinitis, and bursitis. Steroids can be injected directly into a painful, inflamed joint. They can also help reduce inflammation of a bursa. A bursa is a sac of fluid. It cushions and lubricates areas where tendons, ligaments, skin, muscles, or bones rub against each other. A steroid shot can sometimes help with short-term pain relief when other treatments haven't worked.If steroid shots help, pain may improve for weeks or months. Follow-up care is a [place] part of your treatment and safety. Be sure to make and go to all appointments, and call your doctor if you are having problems. It's also a good idea to know your test resultsand keep a list of the medicines you take. How can you care for yourself at home? ?? Put ice or a cold pack on the area for 10 to 20 minutes at a time. Put a thin cloth between the ice and your skin. ?? Ask your doctor if you can take an oyqh-dem-fftdwsg pain medicine, such as acetaminophen (Tylenol), ibuprofen (Advil, Motrin), or naproxen (Aleve). Be safe with medicines. Read and follow all instructions on the label. ?? Avoid strenuous activities for several days. In particular, avoid ones that put stress on the area where you got the shot. ?? If you have dressings over the area, keep them clean and dry. You may remove them when your doctor tells you to. When should you call for help? Call your doctor now or seek immediate medical care if: ? You have signs of infection, such as: ? Increased pain, swelling, warmth, or redness. ? Red streaks leading from the site. ? Pus draining from the site. ? A fever. Watch closely for changes in your health, and be sure to contact your doctor if you have any problems. Where can you learn more? Visit our Mob[employer] information library at [email or web address] You can also view health information on [facility], your personal patient account. Log in or sign uptoday. Enter N616 in the search box to learn more about Joint Injections: Care Instructions. Current as of: August 14, 2020?Content Version: 12.8 ?? [id number] Editorially. Care instructions adapted under license by [facility]. If you have questions about a medical condition or this instruction, always ask your healthcare professional. Editorially disclaims any warranty or liability for your use of this information. documented in this encounter Progress Notes * Henrietta Null MD - 02/09/2021 11:40 AM EDT ESTABLISHED PATIENT ACUTE VISIT Chief Complaint Patient presents with ??? Right Knee Pain with effusion ??? Headache ??? Sinusitis Pt is a 76 y.o. female who presents for acute visit in f/up of R knee pain and effusion with fullness behind the knee that she presented with 4 days ago. At that time, she had a small effusion, primarily suprapatellar and a blackwell's cyst. There was no associated warmth or erythema and she had full ROM. She had an xray which showed no effusion and normal joint spaces, but inaertional enthesopathy and a negative lyme test. 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 She denies any changes to her symptoms including no new symptoms of infection. She has had worsening headache and sinus fullness on and off for the last week with increased cough. She is using the inhaler and it has been better. This time of year often has figueroa and sinus congestion which she relates to her allergies. Her PND is also worse than baseline which she thinks is contributing to cough. Has had cough since she was treated with pneumonia at [facility] this winter. Usuallyclear, but can also have pale yellow color. Currently not taking anything for allergies. Has in thepast taken flonase. Coughing up phlegm - not a normal color. Breathing is not affected. Also has patches of poison rudy on forearm on R with smaller lesions on L. Has been very itchy. Using calamine. Current Outpatient Medications on File Prior to Visit Medication Sig Dispense Refill ??? UNABLE TO FIND Probiotic Daily 50 billion cell, One daily ??? ipratropium (ATROVENT HFA) 17 mcg/actuation HFA Aerosol Inhaler Inhale 2 puffs into the lungs 2times daily. 1 Inhaler 12 ??? carBAMazepine (TEGretol) 200 mg Tablet Take 200 mg by mouth 3 times daily. ??? inhalational spacing device Spacer Use as directed by pharmacist with albuterol mdi. 1 each 2 ??? metoprolol succinate XL (Toprol XL) 25 mg Tablet Sustained Release 24 hr Take 1 tablet by mouthdaily. 90 tablet 3 ??? CALCIUM LACTATE ORAL Take 1 tablet by mouth daily. ??? INOSITOL ORAL Take 1 tablet by mouth 2 times daily. ??? cholecalciferol, Vitamin D3, (VITAMIN D) 1,000 unit Tab tablet Take 1 tablet by mouth daily. ??? cyanocobalamin (VITAMIN B-12) 1,000 mcg tablet ??? omeprazole (PriLOSEC) 40 mg Capsule, Delayed Release(E.C.) Take 1 capsule by mouth daily. 30 minutes before dinner (Patient not taking: Reported on 02/06/2021) 30 capsule 11 No current facility-administered medications on file prior [...] Social History Social History Narrative Lives in [place], with her . 4 children ([place], [facility], [facility], next door). 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 Enjoying cooking, gardening, swimming. No tob No [...] data might be hidden Physical Exam: Vitals: 02/09/21 1127 BP: 142/59 BP Location (NBP): Left arm Patient Position: Sitting BP Cuff Sizes: Adult (25-34 cm) Pulse: 56 Temp: 36.4 ??C (97.5 ??F) TempSrc: Temporal SpO2: 99% Weight: 54.8 kg (120 lb 12.8 oz) Height: 147.5 cm (4' 10.07) Wt Readings from Last 3 Encounters: 02/09/21 54.8 kg (120 lb 12.8 oz) 02/06/21 55.2 kg (121 lb 12.8 oz) 09/15/20 54.3 kg (119 lb 9.6 oz) Physical Exam Constitutional: Appearance: Normal appearance. HENT: Mouth/Throat: Mouth: Mucous membranes are moist. Pharynx: Oropharynx is clear. No oropharyngeal exudate or posterior oropharyngeal erythema. Pulmonary: Effort: Pulmonary effort is normal. Breath sounds: Normal breath sounds. No wheezing or rales. Musculoskeletal: Comments: R knee with small effusion and fullness in the popliteal fossa. No warmth and no redness.Full ROM, mild tenderness in the medial inferior area of knee. Skin: Comments: Patch of erythema about 8 cm in size of R forearm with few vesicles. Linear area of erythea L forearm Neurological: Mental Status: She is alert. The patient was informed of the benefits from joint injections as well as the risks which include, but are not limited to, increased pain, infection, bleeding, increase in blood sugars, and steroid flare. After verbal consent, a time-out was performed, just before the start of the procedure to verify the correct patient, procedure and procedure location. The r knee was cleansed using povidone-iodine swabs x 3. Using a 25 gauge needle, 1% lidocaine was injected subcutaneously for anaesthesia. A 22 -gauge needle was then inserted into the R knee joint using the medial infrapatellar approach and2 cc of clear yellow fluid was removed. The syringe was then removed and a syringe containing 40mg of depo- medrol and 2 ml of lidocaine was attached and contents were injected without complication. Patient tolerated the procedure well. Post injection instructions were discussed and a handout was provided. Assessment and Plan: Heike was seen today for right knee pain, sinus symptoms and rash. Diagnoses and all orders for this visit: Effusion of right knee - clearly with effusion on exam today, suspect she does fluid in knee joint including in blackwell's cyst posterioraly. At today's visit, about 2 cc of very clear fluid was removedfrom the joint. Based on this it is likely she had an internal strain, perhaps from mild trauma that she doesn't remember. Lyme disease is also still on my differential, but given the clear fluid I doubt it is any form of inflammatory arthritis. Because of the time of day procedure was done, we could not send fluid, but I don't think it would have changed management. I went ahead and injected DepoMedrol 40 mg in 2 cc of lidocaine into the knee joint. Pt had relief of her pain. The patient will call should she not have relief of her pain and effusion - methylPREDNISolone acetate (DEPO-Medrol) (40 mg/mL) injection 40 mg Poison rudy dermatitis - trial of steroid cream. - clobetasoL (TEMOVATE) 0.05 % Cream; Apply topically 2 times daily. Seasonal allergic rhinitis, unspecified trigger - recommend otc flonase, cont with atrovent MDI which she has at home. Can also consider albuterol (not sure why pt did not receive this from ER at time of pneumonia). documented in this encounter Plan of Treatment Upcoming Encounters Date Type Department Care Team (Late st Contact Info) Description 07/07/2024 11:00 AM EDT Office Visit Cardiology at [address] [place] [address] Lorena Lawrence MD [facility] [place] [address] documented as of this encounter Visit Diagnoses Diagnosis Effusion of right knee Effusion of lower leg joint Poison rudy dermatitis Contact dermatitis and other eczema due to plants (except food) Seasonal allergic rhinitis, unspecified trigger documented in this encounter Administered Medications Inactive Administered Medications - up to 3 most recent administrations Medication Order MAR Action Action Date Dose Rate Site methylPREDNISolone acetate (DEPO-Medrol) (40 mg/mL) injection 40 mg 40 mg, Intra-articular, ONCE, 1 dose, On Fri02/09/21 at 1230, Routine Given 02/09/2021 12:11 PM EDT 40 mg documented in this encounter Care Teams Lap Cutter Relationship Specialty Start Date End Date Henrietta Null MD [facility] [address] [place] [address] [place] [address] PCP - General General Internal Medicine 10/03/2003/31 documented as of this encounter
--- OUTSIDE RECORDS SUMMARY | 2024-04-23 12:14 | XMS_ITS | Encounter Summary ---
Author Organization [facility] [place] [address] Care Team Providers Care Mail Carrier And Clerk Name Role Phone Henrietta Null MD Primary Care Provider [phone] Reason for Visit * Reason Comments Medication Refill Encounter Details Date Type Department Care Team (Late Contact Info) Description 03/25/2021 Refill Internal Medicine at [address] [address] Henrietta Null MD [facility] [place] [place] [address] Stress-induced cardiomyopathy Social History Tobacco Use Types [...] AM EDT Office Visit Cardiology at [address] [address] Lorena Lawrence MD [facility] [place] [address] documented as of this encounter Visit Diagnoses Diagnosis Stress-induced cardiomyopathy Takotsubo syndrome documented in this encounter Care Teams Mail Carrier And Clerk Relationship Specialty Start Date End Date Henrietta Null MD [facility] [place] [address] PCP - General General Internal Medicine 10/03/2003/31 documented as of this encounter
--- OUTSIDE RECORDS SUMMARY | 2024-04-23 12:14 | XMS_ITS | Encounter Summary ---
Author Organization [facility] [place] [address] Care Team Providers Care Laboratory Inspector Name Role Phone Henrietta Null MD Primary Care Provider [phone] Encounter Details Date Type Department Care Team (Late Contact Info) Description 01/20/2020 External Results Internal Medicine at [address] [phone] Juliann Paez, LOLIS Social History Tobacco Use [...] 11:00 AM EDT Office Visit Cardiology at [address] [place] [phone] Lorena Lawrence MD [facility] [place] [address] documented as of this encounter Procedures Procedure Name Priority Date/Time Associated Diagnosis Comments EXTERNAL LAB PRIMARY CARE RESULTS PANEL Routine 01/14/2020 7:21 AM EDT documented in this encounter Results * (ABNORMAL) Primary Care External Results (01/14/2020 7:21 AM EDT) WBC 8.6 EXTERNAL LAB Hemoglobin 11.5(L) EXTERNAL LAB Hematocrit 36.0 EXTERNAL LAB MCV 91.2 EXTERNAL LAB Platelets 341 EXTERNAL LAB Blood specimen (specimen) 01/14/2020 7:21 AM EDT Historical Provider POINT OF CARE JIMENEZ T ORDERABLES EXTERNAL LAB documented in this encounter Visit Diagnoses Not on filedocumented in this encounter Care Teams Laboratory Inspector Relationship Specialty Start Date End Date Henrietta Null MD [facility] [address] [place] [address] PCP - General 12/20/10 05/08/20 documented as of this encounter
--- OUTSIDE RECORDS SUMMARY | 2024-04-23 12:14 | XMS_ITS | Encounter Summary ---
Author Organization [facility] [place] [address] Care Team Providers Care Secure Software Assessor Name Role Phone Henrietta Null MD Primary Care Provider [phone] Reason for Visit * Reason Comments Establish Care Discharge [facility] on 08/18, Cath, Stress Indusced Cardiomyopathy Encounter Details Date Type Department Care Team (Latest Contact Info) Description 02/02/2020 11:20 AM EDT Office Visit Cardiology at [address] [phone] Lorena Lawrence MD [facility] [place] [address] Stress-induced cardiomyopathy Social History Tobacco Use Types [...] Sign Reading Time Taken Comments Blood Pressure 109/59 02/02/2020 11:34 AM EDT Pulse 72 02/02/2020 11:34 AM EDT Temperature - - Respiratory Rate - - Oxygen Saturation - - Inhaled Oxygen Concentration - - Weight 53.1 kg (117 lb) 02/02/2020 11:27 AM EDT Height 148.6 cm (4' 10.5) 02/02/2020 11:27 AM E DT Body Mass Index 24.04 02/02/2020 11:27 AM EDT documented in this encounter Progress Notes * Lorena Lawrence MD - 02/02/2020 11:20 AM EDT CARDIOLOGY OUTPATIENT NEW PATIENT NOTE PRIMARY CARE PROVIDER: Henrietta Null MD REFERRING PROVIDER: Henrietta Null PROBLEM LIST: Patient Active Problem List Diagnosis ??? Stress-induced cardiomyopathy ??? Acute non-ST segment elevation myocardial infarction ??? Other specified aftercare following surgery ??? Skin lesion of hand ??? Nevus, atypical - foot ??? Trigger fingers, left thumb and ring, right ring ??? Preventative health care DT: Tdap 12/13/08 (from scanned pcp records in [facility]) Pneumovax: 2009 Influenza:2012 Shingles: 2011 Cigarettes: none Alcohol: none Caffeine:little Exercise: active in job, treadmill 1/ Seat Belts: consistent Helmets:consistent Cholesterol (Total/HDL/LDL): Lab Results Component Value Date CHLPL 260* 01/28/2014 HDL 64 01/28/2014 TRIG 114 01/28/2014 LDLCHOL 173* 01/28/2014 Diabetes Screenin 2013 Optho Screening: recent Calcium/Vitamin D: adequate Colon Cancer Screening: Colonoscopy 03/12 + [facility] Osteoporosis Screening: Dexa 2012, lowest - [...] 1,000 mcg tablet No current facility-administered medications for this visit. Subjective: Patient ID: Heike Ramires is a 75 y.o. female. HPI This is a 75-year-old woman who presents after a recent hospitalization at [facility]. In early December she developed shortness of breath and chest discomfort and presented to the emergency room at [facility]. She was discovered to have a new left bundle branch block and also elevated troponins.She was transferred to [facility] where she subsequently underwent cardiac catheterization. This disclosed no coronary artery disease. An echocardiogram showed an ejection fraction of 45% with an apical wall motion abnormality and she was felt to have a stress induced cardiomyopathy. She was startedon medical therapy with metoprolol succinate, losartan and low-dose furosemide. She subsequently developed a rash which resolved with discontinuation of losartan. She has been feeling well. She has had no subsequent chest discomfort. She has not been short of breath, dizzy, or lightheaded. 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 Respiratory: Negative for shortness of breath. All [...] file Gets together: Not on file Attends sabianism service: Not on file Active member of [...] on file Social History Narrative Lives in [place], with her . 4 children ([place], [facility], [facility], next door). 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 Enjoying cooking, gardening, swimming. No tob [...] signs and nursing note reviewed. Constitutional: Comments: Petite woman, no acute distress, looks younger than stated age HENT: Head: Normocephalic and atraumatic. Eyes: Extraocular Movements: Extraocular movements intact. Pupils: Pupils are equal, round, and reactive to light. Neck: Comments: Carotid pulsations are normal in upstroke and volume without bruits Cardiovascular: Rate and Rhythm: Normal rate and regular rhythm. Comments: Normal S1, S2 paradoxic, no murmur gallop Pulmonary: Effort: Pulmonary effort is normal. Breath sounds: Normal breath sounds. Abdominal: Tenderness: There is no abdominal tenderness. Skin: General: Skin is warm and dry. Neurological: General: No focal deficit present. Mental Status: She is oriented to person, place, and time. EKG performed today shows sinus rhythm at 66, left axis, left bundle branch block Assessment and Plan: #1. Stress-induced cardiomyopathy. The patient has had no recurrent cardiac symptoms since her hospitalization. She is tolerating her beta-hanna and low- dose diuretic. We will plan to repeat her echocardiogram in 3 months followed by an office visit. She may return to work without restrictions Thank you for the opportunity to participate in this patient's cardiovascular care. All questions were answered and I look forward to the next visit. documented in this encounter Plan of Treatment Upcoming Encounters Date Type Department Care Team (Late st Contact Info) Description 07/07/2024 11:00 AM EDT Office Visit Cardiology at [address] [phone] Lorena Lawrence MD [facility] [place] [address] documented as of this encounter Visit Diagnoses Diagnosis Stress-induced cardiomyopathy Takotsubo syndrome documented in this encounter Care Teams Secure Software Assessor Relationship Specialty Start Date End Date Henrietta Null MD [facility] [address] [place] [address] PCP - General 12/20/10 05/08/20 documented as of this encounter
--- OUTSIDE RECORDS SUMMARY | 2024-04-23 12:14 | XMS_ITS | Encounter Summary ---
Author Organization [facility] [place] [address] Care Team Providers Care Java Enterprise Architect Name Role Phone Henrietta Null MD Primary Care Provider [phone] Reason for Visit * Reason Comments Labs Only Encounter Details Date Type Department Care Team (Late Contact Info) Description 10/20/2020 Telephone Internal Medicine at [address] [address] Alicia Schaeffer Labs Only Social History Tobacco Use Types Packs/Day Years [...] encounter Miscellaneous Notes * Telephone Encounter - Alicia Schaeffer - 10/20/2020 9:23 AM EST Requested test or order: fit kit Reason requesting test or order: instead of colonoscopy Location where patient wants it to be performed (if an outside facility, please include name of facility and phone/fax number): [facility] lab Caller and relationship (if other than patient-full name): [facility] Best time to call back: any Ok to leave a message: n Ok to send - message n documented in this encounter Plan of Treatment Upcoming Encounters Date Type Department Care Team (Late st Contact Info) Description 07/07/2024 11:00 AM EDT Office Visit Cardiology at [address] [place] [address] Lorena Lawrence MD [facility] [place] [address] documented as of this encounter Visit Diagnoses Not on filedocumented in this encounter Care Teams Java Enterprise Architect Relationship Specialty Start Date End Date Henrietta Null MD [facility] [place] [address] PCP - General General Internal Medicine 10/03/20 7/3 documented as of this encounter
--- OUTSIDE RECORDS SUMMARY | 2024-04-23 12:14 | XMS_ITS | Encounter Summary ---
Author Organization [facility] [place] [address] Care Team Providers Care Construction Project Mgr Name Role Phone Henrietta Null MD Primary Care Provider [phone] Reason for Visit * Reason Comments Medication Refill Encounter Details Date Type Department Care Team (Late st Contact Info) Description 08/08/2020 Refill Internal Medicine at [address] [address] Henrietta Null MD [facility]NAL [facility] [place] [address] Stress-induced cardiomyopathy Social History Tobacco Use Types [...] 11:00 AM EDT Office Visit Cardiology at [address] [phone] Lorena Lawrence MD [facility] [place] [address] documented as of this encounter Visit Diagnoses Diagnosis Stress-induced cardiomyopathy Takotsubo syndrome documented in this encounter Care Teams Construction Project Mgr Relationship Specialty Start Date End Date Henrietta Null MD [facility] [place] [address] PCP - General General Internal Medicine 10/03/2003/31 documented as of this encounter
--- OUTSIDE RECORDS SUMMARY | 2024-04-23 12:14 | XMS_ITS | Encounter Summary ---
Author Organization [facility] [place] [address] Care Team Providers Care Grocery Clerk Checking Name Role Phone Henrietta Null MD Primary Care Provider [phone] Reason for Visit * Reason Onset Date Comments Other 02/13/2021 Encounter Details Date Type Department Care Team (Late st Contact Info) Description 02/13/2021 Telephone [address] Medicine at [facility] [address] [place] [phone] Tova aTvarez Other Social History Tobacco Use Types Packs/Day [...] Miscellaneous Notes * Telephone Encounter - Tova Tavarez - 02/13/2021 8:38 AM EDT Message: Patient called hoping to speak with the software engineer sales regarding insurance issue. Patient states that she has [employer] [place] for insurance and was told by the insurance that PCP needs to sign a paper work to be covered for the services since PCP is out of state provider. Patient is unsure how to proceed with this. Please call the patient back to further discuss. Ask caller their first and last name and relationship to the patient: self Best time to call back: anytime Ok to leave a message: y Ok to send my- message: n Offered Appointment: n MA/Nurse/Vp Of Global Marketing contacted via: Message: y Call: n Pager: n documented in this encounter Plan of Treatment Upcoming Encounters Date Type Department Care Team (Late st Contact Info) Description 07/07/2024 11:00 AM EDT Office Visit Cardiology at [address] [place] [address] Lorena Lawrence MD [place] [address] documented as of this encounter Visit Diagnoses Not on filedocumented in this encounter Care Teams Grocery Clerk Checking Relationship Specialty Start Date End Date Henrietta Null MD [facility] [address] [place] [address] PCP - General General Internal Medicine 10/03/20 7/3 documented as of this encounter
--- OUTSIDE RECORDS SUMMARY | 2024-04-23 12:14 | XMS_ITS | Encounter Summary ---
Author Organization [facility]ly [facility] [place] [address] Care Team Providers Care Chain Puller Name Role Phone Henrietta Null MD Primary Care Provider [phone] Encounter Details Date Type Department Care Team (Late st Contact Info) Description 01/10/2020 Patient Outreach Internal Medicine at [facility] [place] [phone] Madhavi Pitts RN Social History Tobacco Use Types Packs/Day [...] Telephone Encounter - Henrietta Null MD - 01/11/2020 10:40 AM EDT Phone call with patient. After call with Madhavi Pitts yesterday, daughter reached out to cardiologyand relayed that pt had lost over 20 lbs. Lasix medication was held and today pt says she feels much better today. She still is taking the losartan and metoprolol. We discussed that she had an anemiawhile in the hospital and that I recommended that she have a repeat CBC when she has her BMP done at the end of the week. An order for this will be sent to [facility] directly and daughter was alerted that this test would also be checked. Pt has f/up appt with me on 01/17 in telephone visit. * Telephone Encounter - Madhavi Pitts RN - 01/10/2020 1:36 PM EDT Post Hospital Discharge Call Transitional Care 01/10/2020 Date of Current Admission 01/06/2020 Facility - Date of most recent discharge to home 01/08/2020 Date of TCM phone call 01/10/2020 Person providing information: Patient Discharge Diagnosis: Cardiomyopathy, s/p cardiac catheterization Health Status: (Comprehension of reason for hospitalization) Patient reports that she is feeling woozey, wonders if it is from the metoprolol. Vital signs this mornin.3F, 83 116/68. Asked patient to check pulse and blood pressure now, 87,122/71. Patient feels that she is eating and drinking well. Reviewed new medications and confirmed accuracy. Denies: chest pain,SOB,swelling. Advised rest, getting up slowly, contact triage nurse for worsening symptoms or any concerns. Medication Reconciliation: New Medication started: Yes; furosemide 20 mg daily, losartan 20 mg nightly, metoprolol succinate XL 24 mg daily. Discontinued Medication: No Adherence Issues: (financial/transportation):None Clarify Appointments: Assure that patient understands reason for followup appointments and contact information ??? PCP: Yes; 01/18/20, . ??? Specialist: Cardiology to be schedule. ??? Diagnostic (lab/radiology) BMP in one week Are coordination of discharge services (home care/DME/meals on wheels, example) needed? ?? No; if yes assure that patient understands reason for services and contact information and fill out information below ??? Name of agency ??? Type of service Action Plan - assure patient understands action plan ??? What to do if emergent symptoms occur discussed Yes ??? What to do if urgent symptoms occur discussed Yes ??? Plan ahead for your office visit by bringing in your written questions. ??? Bring list of all medications or bring in actual medications to each office visit. documented in this encounter Plan of Treatment Upcoming Encounters Date Type Department Care Team (Late st Contact Info) Description 07/07/2024 11:00 AM EDT Office Visit Cardiology at [address] [place] [phone] Lorena Lawrence MD [facility] [place] [address] documented as of this encounter Visit Diagnoses Diagnosis Anemia, unspecified type documented in this encounter Care Teams Chain Puller Relationship Specialty Start Date End Date Henrietta Null MD [facility] [address] [place] [address] PCP - General 12/20/10 05/08/20 documented as of this encounter
--- OUTSIDE RECORDS SUMMARY | 2024-04-23 12:14 | XMS_ITS | Encounter Summary ---
Author Organization [facility] [place] [address] Care Team Providers Care Supervisor Sample Preparation Name Role Phone Henrietta Null MD Primary Care Provider [phone] Reason for Visit * Reason Onset Date Comments Medication Refill 11/14/2020 Encounter Details Date Type Department Care Team (Late st Contact Info) Description 11/14/2020 Refill Internal Medicine at [address] [address] Alvin Gaines Social History Tobacco Use Types Packs/Day Years [...] encounter Miscellaneous Notes * Telephone Encounter - Alvin Gaines - 11/14/2020 10:02 AM EST Please remind every patient that prescription requests can take up to 72 business hours to process PLEASE REMEBER TO CHECK IF ANY REFILLS MAY BE REMAINING AT THE PHARMACY Medication Refill Request: Name of Medication: Atrovent HFA 17mcg Dose as Prescribed: pt states that she takes 2 puffs in AM and in the PM How many days left: 2 days left Prescriber: [facility] would like Dr. Null to prescribe it to her Pharmacy Name & Location: [facility] Caller would like clinic to reach out to the Pharmacy: yes Patient declined scheduling an appointment: no Ask caller their first and last name and relationship to the patient: pt Best time to call back: any Ok to leave a message: y Ok to send my- message: n Did you contact your pharmacy: n documented in this encounter Plan of Treatment Upcoming Encounters Date Type Department Care Team (Late st Contact Info) Description 07/07/2024 11:00 AM EDT Office Visit Cardiology at [address] [place] [address] Lorena Lawrence MD [facility] [place] [address] documented as of this encounter Visit Diagnoses Not on filedocumented in this encounter Care Teams Supervisor Sample Preparation Relationship Specialty Start Date End Date Henrietta Null MD [facility] [address] [place] [address] [place] [address] PCP - General General Internal Medicine 10/03/2003/31 documented as of this encounter
--- OUTSIDE RECORDS SUMMARY | 2024-04-23 12:14 | XMS_ITS | Encounter Summary ---
Author Organization [facility] [place] [address] Care Team Providers Care Fuel Cell Repairer Name Role Phone Henrietta Null MD Primary Care Provider [phone] Encounter Details Date Type Department Care Team (Late Contact Info) Description 10/23/2020 Telephone Internal Medicine at [address] [address] Scooby Cochran Social History Tobacco [...] * Telephone Encounter - Scooby Cochran - 10/23/2020 10:18 AM EST FIT test mailed to pt on 10/23/20 documented in this encounter Plan of Treatment Upcoming Encounters Date Type Department Care Team (Late Contact Info) Description 07/07/2024 11:00 AM EDT Office Visit Cardiology at [address] [place] [address] Lorena Lawrence MD [facility] [place] [address] documented as of this encounter Visit Diagnoses Not on filedocumented in this encounter Care Teams Fuel Cell Repairer Relationship Specialty Start Date End Date Henrietta Null MD [facility] [place] [address] PCP - General General Internal Medicine 10/03/2003/31 documented as of this encounter
--- OUTSIDE RECORDS SUMMARY | 2024-04-23 12:14 | XMS_ITS | Encounter Summary ---
Author Organization [facility] [place] [address] Care Team Providers Care Environmental Aid Name Role Phone Henrietta Null MD Primary Care Provider [phone] Reason for Visit * Reason Comments Right Knee Pain woke up with it swol raya and painful on friday a.m. lump on back of her knee Poison Maria L Encounter Details Date Type Department Care Team (Late st Contact Info) Description 02/06/2021 11:40 AM EDT Office Visit Internal Medicine at [address] [phone] Henrietta Null MD [facility] [place] [address] Effusion of right knee Social History Tobacco Use Types Packs/Day Years [...] Sign Reading Time Taken Comments Blood Pressure 122/49 02/06/2021 11:39 AM EDT Pulse 61 02/06/2021 11:39 AM EDT Temperature 36.2 ??C (97.1 ??F) 02/06/2021 1 1:39 AM EDT Respiratory Rate - - Oxygen Saturation 98% 02/06/2021 11: 39 AM EDT Inhaled Oxygen Concentration - - Weight 55.2 kg (121 lb 12.8 oz) 021 11:39 AM EDT Height 147.5 cm (4' 10.07) 02/06/2021 11:39 AM EDT reported Body Mass Index 25.39 02/06/2021 11:39 AM EDT documented in this encounter Progress Notes * Henrietta Null MD - 02/06/2021 11:40 AM EDT ESTABLISHED PATIENT ACUTE VISIT Chief Complaint Patient presents with ??? Right Knee Pain woke up with it swollen and painful on friday a.m. lump on back of her knee ??? Poison Maria L Pt is a 76 y.o. female who presents for acute visit with 4 day history of R knee pain and swelling.Doesn't recall trauma, woke up with symptoms in the morning. Is not sig painful at rest, but is hard to walk and bare weight. 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 Notices swelling of knee as well as a lump in the back of the knee. No redness or warmth.No other joint pains. No history of prior knee issues. No h/o crystal disease. No f/c, malaise. No recent tic bites. Current Outpatient Medications on File Prior to [...] Use as directed by pharmacist with albuterol i. 1 each 2 ??? metoprolol succinate XL [...] Social History Social History Narrative Lives in [place], with her . 4 children ([facility], [facility], next door). 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 Enjoying cooking, gardening, swimming. No tob No [...] data might be hidden Physical Exam: Vitals: 02/06/21 1139 BP: 122/49 BP Location (NBP): Left arm Patient Position: Sitting BP Cuff Sizes: Adult (25-34 cm) Pulse: 61 Temp: 36.2 ??C (97.1 ??F) TempSrc: Temporal SpO2: 98% Weight: 55.2 kg (121 lb 12.8 oz) Height: 147.5 cm (4' 10.07) Wt Readings from Last 3 Encounters: 02/06/21 55.2 kg (121 lb 12.8 oz) 09/15/20 54.3 kg (119 lb 9.6 oz) 05/09/20 52.9 kg (116 lb 9.6 oz) Physical Exam Pleasant nad except clearly favors leg with walking to exam table. R knee with no overlying skin changes. + small effusion, primarily suprapatellar. + fullness in popliteal fossa Assessment and Plan: Heike was seen today for right knee pain and swelling. 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 There is no evidence of active inflammation to suggest crystal disease or infection. Lyme arthritis can sometimes present like this.Plan to check xray and lyme titre. Consider return to clinic for aspiration and possible steroid injection. Diagnoses and all orders for this visit: Effusion of right knee - Lyme IgG & IgM Antibody; Future - Lyme IgG & IgM Antibody - Xray at [facility]. documented in this encounter Plan of Treatment Upcoming Encounters Date Type Department Care Team (Late st Contact Info) Description 07/07/2024 11:00 AM EDT Office Visit Cardiology at [address] [place] [address] Lorena Lawrence MD [facility] [place] [address] documented as of this encounter Procedures Procedure Name Priority Date/Time Associated Diagnosis Comments HC VENIPUNCTURE Routine 02/06/2021 12:25 PM EDT Effusion of right knee documented in this encounter Results * Lyme IgG & IgM Antibody (02/06/2021 12:25 PM EDT) Lyme Screening Antibody Neg Neg [facility] Blood specimen (specimen) 02/06/2021 12:25 PM EDT 02/07/2021 7:27 AM EDT Narrative Resulting Agency Comment Spec In Lab Henrietta Null MD IMMUNOLOGY ORDERABLE S [facility] [place] [address] documented in this encounter Visit Diagnoses Diagnosis Effusion of right knee Effusion of lower leg joint documented in this encounter Care Teams Environmental Aid Relationship Specialty Start Date End Date Henrietta Null MD [facility] [place] [address] PCP - General General Internal Medicine 10/03/2003/31 documented as of this encounter
--- OUTSIDE RECORDS SUMMARY | 2024-04-23 12:14 | XMS_ITS | Encounter Summary ---
Author Organization [facility] [place] [address] Care Team Providers Care Relay Repairer Name Role Phone Henrietta Null MD Primary Care Provider [phone] Reason for Visit * Reason Onset Date Comments Medication Refill 03/29/2020 Encounter Details Date Type Department Care Team (Late st Contact Info) Description 03/29/2020 Refill Cardiology at [address] [phone] Lorena Lawrence MD [facility] [place] [address] Medication Refill Social History Tobacco Use Types [...] AM EDT Office Visit Cardiology at [address] [phone] Lorena Lawrence MD [facility] [place] [address] documented as of this encounter Visit Diagnoses Diagnosis Stress-induced cardiomyopathy Takotsubo syndrome documented in this encounter Care Teams Relay Repairer Relationship Specialty Start Date End Date Henrietta Null MD [facility] [address] [place] [address] PCP - General 12/20/10 05/08/20 documented as of this encounter
--- OUTSIDE RECORDS SUMMARY | 2024-04-23 12:14 | XMS_ITS | Encounter Summary ---
[place] [address] Care Team Providers Care Long Term Care Administrator Name Role Phone Henrietta Null MD Primary Care Provider [phone] Encounter Details Date Type Department Care Team (Late st Contact Info) Description 01/12/2020 Telephone Cardiology at [address] [phone] Lucy Matos RN Social History Tobacco Use Types Packs/Day [...] encounter Miscellaneous Notes * Telephone Encounter - Lucy Matos, RN - 01/12/2020 5:35 PM EDT Return call to patient to question her about her diarrhea. Patient states that she continues to have loose bowel movements- smaller amounts several times a day. This has been happening since her hospitalization. She sometimes experiences cramping and bloating with the diarrhea. She is now having soft formed stools- as opposed to loose/watery stools she was originally having. Overall, feels that her diarrhea is improving. She will be going for labs on 01/13/20- in advance of her appointment with Dr. Null- so she was advised, and agrees to call PCP office to see if they would like her to get additional specimens. She has no other concerns. Lucy Matos RN, BSN Ambulatory Cardiology Department * Telephone Encounter - Lucy Matos RN - 01/12/2020 3:37 PM EDT Thank you for the updates Irma. If the patient is feeling better and her symptoms have resolved than I would continue her medications as currently prescribed. It would be helpful to know what her weight is today. If her weight has continued to decrease, I think we should hold her lasix for a few days and then reassess. Thanks, Tiffani F/u call to patient today. Mrs. Ramires states she is feeling much better today- even better than yesterday. She has continued to take her metoprolol in the AM and her losartan at night and this change has helped to relieve her dizziness and fatigue. States her energy level has improved. She denies any chest pain or SOB. She did not take her furosemide today- and her weight this AM was 115 lbs. She will continue to hold the furosemide- but understands that she should call if she notices any LE edema/swelling or experiences any SOB or has any other symptoms or concerns. She verbalized her understanding and agreement to this plan. She is currently scheduled for f/u with Dr. Null - her PCP on 01/18/20 and will have first in person appointment with Dr. Salas at [facility] on 02/23/20. Provided my name and phone number for the patient to call if she has any other concerns or questions . Stated she would call her daughter and give her update. Patient has no other concerns at this time. Lucy Matos RN, BSN Ambulatory Cardiology Department Covering for Kendell Uribe RN documented in this encounter Plan of Treatment Upcoming Encounters Date Type Department Care Team (Late st Contact Info) Description 07/07/2024 11:00 AM EDT Office Visit Cardiology at [address] [place] [phone] Lorena Lawrence MD [facility] [place] [address] documented as of this encounter Visit Diagnoses Not on filedocumented in this encounter Care Teams Long Term Care Administrator Relationship Specialty Start Date End Date Henrietta Null MD [facility] [address] [address] PCP - General 12/20/10 05/08/20 documented as of this encounter
--- OUTSIDE RECORDS SUMMARY | 2024-04-23 12:14 | XMS_ITS | Encounter Summary ---
Author Organization [facility] Address [facility] [place] [address] Care Team Providers Care Senior Java Engineer Name Role Phone Henrietta Null MD Primary Care Provider [phone] Encounter Details Date Type Department Care Team (Late st Contact Info) Description 01/12/2020 Abstract Cardiology at [address] [address] Tova Keller, RN Social History Tobacco Use Types Packs/Day [...] 11:00 AM EDT Office Visit Cardiology at [address] [address] Lorena Lawrence MD [facility] [place] [address] documented as of this encounter Visit Diagnoses Not on filedocumented in this encounter Care Teams Senior Java Engineer Relationship Specialty Start Date End Date Henrietta Null MD [facility] [place] [address] PCP - General 12/20/10 05/08/20 documented as of this encounter
--- OUTSIDE RECORDS SUMMARY | 2024-04-23 12:14 | XMS_ITS | Encounter Summary ---
Author Organization [facility] [place] [address] Care Team Providers Care Pad Machine Offbearer Name Role Phone Henrietta Null MD Primary Care Provider [phone] Reason for Visit * Reason Onset Date Comments Other 10/23/2020 FOB order Encounter Details Date Type Department Care Team (Late st Contact Info) Description 10/23/2020 Telephone Internal Medicine at [address] [address] Vani Dixon Other (FOB order) Social History Tobacco Use Types Packs/Day Years [...] Miscellaneous Notes * Telephone Encounter - Vani Dixon - 10/23/2020 9:53 AM EST Message: Tasia from the Lab called. They received an FOB sample from Heike but they don't have anorder to process the sample. Ask caller their first and last name and relationship to the patient: Tasia from [facility] Lab Phone: [phone] MA/Nurse/Justin contacted via: Message: y Call: n Pager: [phone] documented in this encounter Plan of Treatment Upcoming Encounters Date Type Department Care Team (Late st Contact Info) Description 07/07/2024 11:00 AM EDT Office Visit Cardiology at [address] [facility] [place] [address] Lorena Lawrence MD [facility] [place] [address] documented as of this encounter Results * Fecal Occult Blood, Immunoassay (10/17/2020 1:50 PM EST) Fecal Occult Blood, Immunoassay Negative Negative [facility] Stool specimen (specimen) 10/17/2020 1:50 PM EST 10/27/2020 8:21 AM EST Narrative Resulting Agency Comment Spec In Lab Henrietta Null MD BODY FLUIDS AND STOO LS ORDERABLES Performing Organization Address City/State/[facility] Co de Phone Number [facility] [place] [address] documented in this encounter Visit Diagnoses Diagnosis Screening for colon cancer Special screening for malignant neoplasms, colon documented in this encounter Care Teams Pad Machine Offbearer Relationship Specialty Start Date End Date Henrietta Null MD [facility] [address] [place] [address] PCP - General General Internal Medicine 10/03/20 7/ documented as of this encounter
--- OUTSIDE RECORDS SUMMARY | 2024-04-23 12:14 | XMS_ITS | Encounter Summary ---
Author Organization [facility] [place] [address] Care Team Providers Care Practice Management Consultant Name Role Phone Henrietta Null MD Primary Care Provider [phone] Reason for Visit * Reason Onset Date Comments Triage 01/20/2020 Encounter Details Date Type Department Care Team (Late st Contact Info) Description 01/20/2020 Telephone Internal Medicine at [address] [address] Diana Nguyen Triage Social History Tobacco Use Types Packs/Day [...] encounter Miscellaneous Notes * Telephone Encounter - Minesh Gallegos - 01/21/2020 1:24 PM EDT Patient returning call to nurse- patient states she did not take the Losartan last night and statesthat her rash is a little better today. Patient would like a call back at [phone] at earliest convenience to discuss. Thank you! * Telephone Encounter - Rosa Shook RN - 01/20/2020 3:10 PM EDT Phoned patient back no answer, left message, asked for call back * Telephone Encounter - Diana Nguyen - 01/20/2020 2:37 PM EDT Pt called back re: worsening rash. Reviewed pcp Chemo msg. Pt would like to speak to a nurse today.Please call pt back. documented in this encounter Plan of Treatment Upcoming Encounters Date Type Department Care Team (Late st Contact Info) Description 07/07/2024 11:00 AM EDT Office Visit Cardiology at [address] [address] Lorena Lawrence MD [facility] [place] [address] documented as of this encounter Visit Diagnoses Not on filedocumented in this encounter Care Teams Practice Management Consultant Relationship Specialty Start Date End Date Henrietta Null MD [facility] [address] [address] PCP - General 12/20/10 05/08/20 documented as of this encounter
--- OUTSIDE RECORDS SUMMARY | 2024-04-23 12:14 | XMS_ITS | Encounter Summary ---
Author Organization [facility] [place] [address] Care Team Providers Care Web Services Developer Name Role Phone Henrietta Null MD Primary Care Provider [phone] Encounter Details Date Type Department Care Team (Late st Contact Info) Description 01/13/2020 Telephone Cardiology at [address] [address] Lucy Matos RN Social History Tobacco Use [...] Miscellaneous Notes * Telephone Encounter - Lucy Matos RN - 01/13/2020 10:14 AM EDT Return call to patient who had left earlier message. Patient states that her weight today was 116.2 lbs. She denies any LE edema and has no SOB or chest pain at the time of call. Her BP today was 114/64 and she denies any dizziness. Did not check her pulse rate. She continues to have soft formed stools- with some cramping just before - still seems to have BM- about 3 times/24 hours. Continues to drink water throughout the day to stay hydrated. Patient planning to get her labs tomorrow and would like them to be done at [facility] in [place], [place]- prefers not to drive down to [facility]. Orders for CBC and BMP have been successfully Faxed to [facility]. She has no other concerns at this time. Provided the after hours phone number for her to connect with Cardiology provider on-call if she has concerns at night or over the weekend. Patient knows how to contact Cardiology office and understands she may do so at any time with further questions or concerns.\ Lucy Matos RN, BSN Ambulatory Cardiology Department documented in this encounter Plan of Treatment Upcoming Encounters Date Type Department Care Team (Late st Contact Info) Description 07/07/2024 11:00 AM EDT Office Visit Cardiology at [address] [address] Lorena Lawrence MD [facility] [place] [address] documented as of this encounter Visit Diagnoses Not on filedocumented in this encounter Care Teams Web Services Developer Relationship Specialty Start Date End Date Henrietta Null MD [facility] [address] [address] PCP - General 12/20/10 05/08/20 documented as of this encounter
--- OUTSIDE RECORDS SUMMARY | 2024-04-23 12:14 | XMS_ITS | Encounter Summary ---
Author Organization [facility] [place] [address] Care Team Providers Care Psychologist Clinical Name Role Phone Henrietta Null MD Primary Care Provider [phone] Encounter Details Date Type Department Care Team (Late st Contact Info) Description 01/18/2020 11:20 AM EDT TH Visit (TeleHealth) Internal Medicine at [address] [address] Henrietta Null MD [facility] [place] [address] Stress-induced cardiomyopathy Social History Tobacco Use Types [...] Sign Reading Time Taken Comments Blood Pressure 117/75 01/18/2020 11:15 AM EDT Pulse 67 01/18/2020 11:15 AM EDT Temperature - - Respiratory Rate - - Oxygen Saturation 93% 01/18/2020 11: 15 AM EDT Inhaled Oxygen Concentration - - Weight 53.4 kg (117 lb 12.8 oz) 020 11:15 AM EDT Height - - Body Mass Index 24.2 01/06/2020 11:56 AM EDT documented in this encounter Progress Notes * Henrietta Null MD - 01/18/2020 11:20 AM EDT TELEMEDIC INE VISIT - Given the ongoing COVID-19 public health emergency, this visit was done as a Telephone visit. The patient gave verbal consent for the visit. The exam findings were based on the conversation with the patient during the visit. Cc: TCM VISIT Transitional Care 01/10/2020 Date of Current Admission 01/06/2020 Facility - Date of most recent discharge to home 01/08/2020 Date of TCM phone call 01/10/2020 Subjective: pt is a 74 yo patient with a PMH notable for only trigeminal neuralgia and osteoporosiswho presented to [facility] ER with 3 days of stuttering substernal CP and KRUGER and was found to have new LBBB and increase in her troponin and was transferred to where she underwent cath which showednormal coronaries but elevated LVEDP which correlated with her BNP that was increased to 4968. She was begun on carvediolol and lisinopril but developed hypotension and her meds were changed to metoprolol and losarten with lasix 20 mg which was started at discharge. She was also noted to have a mild anemia with iron and iron sat low, with TIBC also low with ferritin of 131. After returning home, she described dizziness and fatigue and was found to have lost over 20 lb (although per chart, it was a decrease from 124 to 115) and her lasix was held. She felt well within a day of this change, as well as a change to when she was taking her losartan and metoprolol. She denies any breathing difficulty and has now started doing chores around the house. She has noticed that there is numbness on her L upper arm towards the back. There is no associated pain or weakness andshe denies any neck pain. It does feel heavy. She has tried tylenol with no improvement. Recent weights Weight today 117.8, highest - 118 (Friday). Lowest 115 (Friday). Vitals past few days. O2 - 93, 91, 97 P 67, 71, 63. BP - 117/75, 121/57, 109/67. She had a f/up bmp and CBC done at [facility] but those records are not in the chart. She is eager to get back to work. Meds/allergies: Current Outpatient Medications on File Prior to Visit Medication Sig Dispense Refill ??? losartan (Cozaar) 25 mg Tablet Take 1 tablet by mouth nightly. 30 tablet 2 ??? metoprolol succinate XL (Toprol XL) [...] facility-administered medications on file prior to visit. Decision Making/Plan: Stress-induced cardiomyopathy - clinically stable, although wonder if her cardiac function has improved and she is over medicated at this time. Do not have her [facility] labs, and will try to obtain those at this time. Anemia - suspect anemia of AOCD given low tibc. Will await cbc and determine whether other work up needs to be done. This patient has medical needs (which may include housing, PT/OT, counseling, medication help, etc)that require Moderate medical decision making as discussed above. I am aware of the medications given at the time of discharge from facility. These were reconciled with the patient's ambulatory med list, post discharge. Today, I will be keeping the medicatons the same as per discharge medications. I provided care to the patient today via telephone call, 25 minutes telephone visit was spent in discussion with patient on above. documented in this encounter Plan of Treatment Upcoming Encounters Date Type Department Care Team (Late st Contact Info) Description 07/07/2024 11:00 AM EDT Office Visit Cardiology at [address] [place] [address] Lorena Lawrence MD [facility] [address] documented as of this encounter Visit Diagnoses Diagnosis Stress-induced cardiomyopathy Takotsubo syndrome documented in this encounter Care Teams Psychologist Clinical Relationship Specialty Start Date End Date Henrietta Null MD [facility] [address] [facility] [place] [address] PCP - General 12/20/10 05/08/20 documented as of this encounter
--- OUTSIDE RECORDS SUMMARY | 2024-04-23 12:15 | XMS_ITS | Encounter Summary ---
Author Organization Formerly [facility] [place] [address] Care Team Providers Care Ruffling Machine Operator Name Role Phone Henrietta Nlul MD Primary Care Provider [phone] Encounter Details Date Type Department Care Team (Late st Contact Info) Description 11/22/2019 Telephone [place] [phone] Thelma Morton Social History Tobacco Use Types Packs/Day Years [...] encounter Miscellaneous Notes * Telephone Encounter - Thelma Morton - 11/22/2019 2:49 PM EST Heike Ramires [id number] Diagnosis/Indication: Family history of colon cancer 1. Have you ever had a/an Colonoscopy before? Yes: Date 03/21/14 If yes, did you have any problems with the procedure? No What type of sedation was used: IV Conscious Sedation 2. Do you take any Blood Thinners? No 3. Do you have a Pacemaker or Defibrillator device? No 4. Are you a diabetic? No 5. Do you have any Allergies to Eggs, Latex or Medications? Yes: pain killers 6. Do you take any Oral Iron Supplements (Including multi-vitamins)? No 7. Do you have a history of three or more abdominal surgeries? No 8. Have you had a problem with sedation or anesthesia? No 9. Do you have a c-pap machine or oxygen tank? Neither 10. Do you take prescription narcotic pain medications? No 11. Do you have a preference regarding the gender of your provider? Yes: Female 12. Is there any other information you would like to give us to aid in scheduling? No 13. Say to patient: You must have a responsible green party who will drive you to your procedure, stay oncampus for the entire duration of your procedure, and drive you home from your procedure? Height: 4'10 Weight: 118 BMI: 24.7 Age:74 y.o. documented in this encounter Plan of Treatment Upcoming Encounters Date Type Department Care Team (Late st Contact Info) Description 07/07/2024 11:00 AM EDT Office Visit Cardiology at [address] [phone] Lorena Lawrence MD [facility] [place] [address] documented as of this encounter Visit Diagnoses Not on filedocumented in this encounter Care Teams Ruffling Machine Operator Relationship Specialty Start Date End Date Henrietta Null MD [facility] [address] [place] [address] PCP - General 12/20/10 05/08/20 documented as of this encounter
--- OUTSIDE RECORDS SUMMARY | 2024-04-23 12:15 | XMS_ITS | Encounter Summary ---
Author Organization [facility] Address [facility] [place] [address] Care Team Providers Care Stylist Apprentice Name Role Phone Henrietta Null MD Primary Care Provider [phone] Encounter Details Date Type Department Care Team (Latest Contact Info) Description 05/22/2018 7:25 AM EDT - 05/22/2018 11:59 PM EDT Hospital [place] [address] Henrietta Null MD [facility] [place] [address] Encounter for screening mammogram for breast cancer [...] Vitamin D3, (VITAMIN D) 1,000 unit Tab tabletIndications:Oste openia Take 1 tablet by mouth daily. 01/10/2012 promethazine (PHENERGAN) 12.5 mg SuppositoryIndications :Intractable vomiting with nausea, unspecified vomiting type Place 1 suppository rectally every 6 hours as needed for Nausea. 12 each 04/06/2018 09/17/2019 fluconazole (DIFLUCAN) 100 mg TabletIndications:Thru sh Take 1 tablet by mouth daily. 10 tablet 02/13/2018 09/17/2019 albuterol 90 mcg/actuation HFA Aerosol Inhaler Inhale 1 puff into the lungs 4 times daily. Use with spacer 1 Inhaler 1 12/15/2017 09/17/2019 fluticasone (FLONASE) 50 mcg/actuation [place], Suspension 1 spray by Each Nare route daily. 16 g 11 10/20/2017 09/17/2019 cyanocobalamin (VITAMIN B-12) 1,000 mcg tablet 12/20/2010 06/01/2021 documented as of this encounter Plan of Treatment Upcoming Encounters Date Type Department Care Team (Late st Contact Info) Description 07/07/2024 11:00 AM EDT Office Visit Cardiology at [address] [place] [address] Lorena Lawrence MD [facility] [place] [address] documented as of this encounter Procedures Procedure Name Priority Date/Time Associated Diagnosis Comments MAMMO SCREENING CAD AND RENAN BILATERAL Routine 05/22/2018 7:43 AM EDT Encounter for screening mammogram for breast cancer documented in this encounter Results * Mammo Screening Cad and Renan Bilateral (05/22/2018 7:43 AM EDT) Anatomical Region Laterality Modality Breast Bilateral Mammography Narrative 05/22/2018 8:21 AM EDT BILATERAL MAMMOGRAPHY REASON FOR EXAM: Screening TECHNIQUE: CC and MLO views were obtained of each breast using standard 2-D mammography as well as 3-D tomosynthesis. Computer aided detection was used. This is compared with prior images. FINDINGS: ??The breasts are heterogeneously dense, which may obscure small masses. There are no suspicious microcalcifications, masses, or areas of distortion. The pattern is stable. CONCLUSION: No mammographic evidence of malignancy. RECOMMENDATION: The [employer] and The Society of Breast Imaging recommend annual screening beginning at age 40 for the general female population. Screening should continue as long as a woman is in good health and is expected to live 10 more years or longer. All women should be familiar with the known benefits, limitations, and potential harms linked to breast cancer screening. They should also know how their breasts normally look and feel and report any breast changes to a health care provider right away. Some women - because of their family history, a genetic tendency, or certain other factors - should be screened with MRIs along with mammograms. (The number of women who fall into this category is very small.) The patient and health care provider should discuss the patient history and decide if earlier screening and breast MRI are appropriate. A result letter has been sent to this patient by the [facility]. BIRADS CATEGORY 1: NEGATIVE Henrietta Null MD IMG MAMMO ORDERABLES documented in this encounter Visit Diagnoses Diagnosis Encounter for screening mammogram for breast cancer documented in this encounter Care Teams Stylist Apprentice Relationship Specialty Start Date End Date Henrietta Null MD [facility] [place] [address] PCP - General 12/20/10 05/08/20 documented as of this encounter
--- OUTSIDE RECORDS SUMMARY | 2024-04-23 12:15 | XMS_ITS | Encounter Summary ---
Author Organization [facility] [place] [address] Care Team Providers Care Nutritional Chemist Name Role Phone Henrietta Null MD Primary Care Provider [phone] Encounter Details Date Type Department Care Team (Late st Contact Info) Description 01/06/2020 Telephone Cardiology at [address] [place] [address] Lindsay Leone DIRECTOR OF MEDICAL SERVICES [facility] [place] [address] Social History Tobacco Use Types Packs/Day Years [...] encounter Miscellaneous Notes * Telephone Encounter - Lindsay Leone APRN - 01/06/2020 10:18 AM EDT 01/06/2020 Heike Ramires Initial Contact Date: 01/06/2020 Initial contact time: 09:24 Referring Provider: Dr. 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 Pain was responsive to ibuprofen initially. The pain changed last night- became more centralized in the chest and radiated to the back. No other associated symptoms. She took one of her hu tarahand's SL nitro tablets with resolution of the pain. In the ED she is hemodynamically stable with VS: temp 98.3 F, HR 83, BP 115/83, spO2 99% on RA. She has a new LBBB (compared to EKG in 11/2017). She had one additional episode of chest pain in the ED that resolved with nitro and was not associated with worsening EKG changes. Pertinent Diagnostic Findings: EKG: HR 81, SR, LBBB, does not meet Sgarbossa's criteria (new LBBB compared to past EKGs, most recent was 11/2017) Troponin 0.05 (right at ULN) No WBC, H/H wnl, BMP wnl Cr 0.8 Plts 182 Past cardiac studies: EKG 11/2017: SR, no acute ST abnormalities OSH Interventions: Aspirin 324 mg 1 SL nitro with resolution of pain Plan: Discussed case with Dr. Whalen (nuisance wildlife specialist)- given that the patient's troponin was not significantly elevated and that her pain resolved with SL nitro, will treat as NSTEMI. Will likely needcath, as she is either having an event now or had a past event which resulted in a LBBB. Advised giving Plavix 300 mg and starting her on a heparin infusion for ACS treatment. She will be transferredfor further work up and management. - above recommendations were based on my discussion with Dr. Paz; I have not personally interviewed or examined this patient. IDA Elkins, WASTE HAND-BC, DIRECTOR OF MEDICAL SERVICES [facility] Cardiovascular Medicine documented in this encounter Plan of Treatment Upcoming Encounters Date Type Department Care Team (Late st Contact Info) Description 07/07/2024 11:00 AM EDT Office Visit Cardiology at [address] [place] [phone] Lorena Lawrence MD [facility] [place] [address] documented as of this encounter Visit Diagnoses Not on filedocumented in this encounter Care Teams Nutritional Chemist Relationship Specialty Start Date End Date Henrietta Null MD [facility] [address] [address] PCP - General 12/20/10 05/08/20 documented as of this encounter
--- OUTSIDE RECORDS SUMMARY | 2024-04-23 12:15 | XMS_ITS | Encounter Summary ---
Author Organization [facility] [place] [address] Care Team Providers Care Surface Grinder Name Role Phone Henrietta Null MD Primary Care Provider [phone] Reason for Visit * Reason Comments Follow-up Encounter Details Date Type Department Care Team (Latest Contact Info) Description 02/13/2018 11:30 AM EDT Office [place] [address] Yovani Swanson MD [facility] [address] Thrush; Mild persistent asthma, uncomplicated Social History Tobacco Use Types Packs/Day Years [...] Sign Reading Time Taken Comments Blood Pressure 142/55 02/13/2018 11:40 AM EDT Pulse 62 02/13/2018 11:40 AM EDT Temperature - - Respiratory Rate 20 02/13/2018 11:40 AM EDT Oxygen Saturation 97% 02/13/2018 11:40 AM EDT Inhaled Oxygen Concentration - - Weight 54.4 kg (120 lb) 02/13/2018 11:40 AM EDT Height 149.9 cm (4' 11) 02/13/2018 11:40 AM EDT Body Mass Index 24.24 02/13/2018 11:40 AM EDT documented in this encounter Progress Notes * Yovani Swanson MD - 02/13/2018 11:30 AM EDT CLINIC Follow up Note Original consult: 12/29/2017 Last visit: 12/29/2017 I have personally interviewed and examined the patient, reviewed history, radiographic studies( if any) and laboratory data(if any). Problems : -obstructive lung disease Other notable issues: - HPI: This is a 73 y.o. female, The following is a summary from the previous visit. -72 yo woman never a smoker, presented with 3 month hx of cough with dyspnea. Recent hospital overnight admission with hypoxemia, for which nebulizer and prednisone was effective. She was discharged about 2 weeks. However, she continues to have mild cough and exertional dyspnea. She had a CT - PE at the hospitalization and it was negative for PE. It showed normal lung parenchyma also. Her spirometry however was abnormal, by showing mild obstruction. ( note FEV1 is 91% predicted, hence this still could be normal variant, instead of true obstruction). 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 -I don't see any evidence of CHF at this time. Note proBNP was 123 at the time of the hospitalization. -her DLco is reduced, though no significant ambulatory desaturation. FENO was not elevated. -no emphysema on CT. ?? -Her data fits best to the dx of COPD, but she has never been a smoker. She could have adult onset asthma but it does not explain mildly reduced DLco. Will treat her for asthma for the next 4-8 weeksto see how she does. Will check A1AT though CT did not show any bronchiectasis nor emphysema. Will check RIST and RAST, I am concerned that she might have been sensitized from her job ( house cleaning). Plan -start arnuity ellipta 100 once daily -check RIST, RAST and A1AT -f/u in 4-6 weeks. -she has a spacer. Demonstration for arnuity ellipta was done. Today's visit; -Total IgE was not elevated. Alpha-1 antitrypsin titer was normal. RAST was all negative. -Her sx has resolved with ICS except for very mild residual dry cough, which she has for a long time, prior to this episode. -heartburn. PMHx: Patient Active Problem List Diagnosis Code ??? Ovarian fibroma D27.9 ??? Osteoporosis M81.0 ??? Trigeminal neuralgia G50.0 ??? Preventative health care Z00.00 ??? Trigger fingers, left thumb and ring, right ring M65.30 ??? 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 Skin lesion of hand L98.9 ??? Other specified aftercare following surgery Z48.89 Social Hx: Social History Substance Use Topics ??? Smoking status: Never Smoker ??? Smokeless tobacco: Never Used ??? Alcohol use No Allergy: Allergies Allergen Reactions ??? Methadone Hcl headaches ??? Morphine Sulfate Nausea And Vomiting ??? Oxidized Glycerol Triesters headache ??? Oxycodone Hcl severe headaches ??? Codeine Phosphate stomach ache Medications: Outpatient Prescriptions Marked as Taking for the 02/13/18 encounter (Office Visit) with Yovani Swanson MD Medication Sig Dispense Refill ??? albuterol 90 mcg/actuation HFA Aerosol Inhaler Inhale 1 puff into the lungs 4 times daily. Use with spacer 1 Inhaler 1 ??? fluticasone (FLONASE) 50 mcg/actuation [place], Suspension 1 spray by Each Nare route daily. 16 g11 ??? CALCIUM LACTATE ORAL Take by mouth. ??? INOSITOL ORAL Take by mouth. ??? cholecalciferol, Vitamin D3, (VITAMIN D) 1,000 unit Tab tablet Take 1 tablet by mouth daily. ??? cyanocobalamin (VITAMIN B-12) 1,000 mcg tablet ROS: : positive. Vitals and Physical Exam: BP 142/55 Pulse 62 Resp 20 Ht 149.9 cm (4' 11) Wt 54.4 kg (120 lb) SpO2 97% BMI 24.24 kg/m2 Gen: comfortable. Normal breathing pattern and rate. HEENT: + thrush Neck: No stridor Chest: CTA Extrem: no C/C/E. Diagnostic studies:-CXR: 12/14/2017 COMPARISON: Chest radiographs and CT December 12, 2017. ? FINDINGS: Mild streaky basilar subsegmental atelectasis and/or scarring. No confluent airspace opacity, pleural effusion, or pneumothorax definitively identified. Cardiomediastinal contours within normal limits for age. ? IMPRESSION No acute cardiopulmonary process seen. ?? -CT: 12/12/2017 Pulmonary arteries: No pulmonary arterial filling defects. ? Other cardiovascular structures: No significant findings. ? Pulmonary parenchyma: Mild bibasilar atelectasis. No discrete nodule corresponding with recent chest radiograph. Airways: No significant findings. Pleura: No significant findings. Lymph nodes: No significant findings. Other mediastinal structures: No significant findings. Upper abdomen: No significant findings. Skeletal structures: No significant findings. ? IMPRESSION No pulmonary embolism or other significant abnormality.. ?? -PFTs: date FVC FEV1 FEV/FVC VC TLC RV RV/TLC Dsb SpO2 FENO 12/29/2017 2.67 115 1.58 91 59 ? 11.72 65 ?? 20 ? SpO2 94--->92-95 after 6 mins walk. ?? -ECHO: -Serology: -PET: -Biopsy: -Other: ?? Labs ??Results for HEIKE RAMIRES ( ) as of 02/12/2018 15:20 Ref. Range 12/29/2017 10:36 A1AT Latest Ref Range: 90 - 200 mg/dL 139 A1AT Genotype Unknown A1AT (SERPINA1) G... A Fumigatus IgE Latest Units: kU/L <0.35 IgE Latest Ref Range: <=101 kU/L 29 Alt Tenuis IgE Latest Units: kU/L <0.35 Beech IgE Latest Units: kU/L <0.35 Silver Birch IgE Latest Units: kU/L <0.35 [place]/Maple IgE Latest Units: kU/L <0.35 Cat Epi IgE Latest Units: kU/L <0.35 Dog Epi IgE Latest Units: kU/L <0.35 Elm IgE Latest Units: kU/L <0.35 Mites/D.F. IgE Latest Units: kU/L <0.35 Mites/D.P. IgE Latest Units: kU/L <0.35 [place]ock IgE Latest Units: kU/L <0.35 Ragweed IgE Latest Units: kU/L <0.35 [place] Grass IgE Latest Units: kU/L <0.35 White Will IgE Latest Units: kU/L <0.35 White [place] IgE Latest Units: kU/L <0.35 Summary: -mild persistent asthma Impression/recommendation: -73 yo woman with KRUGER and cough, here for follow up. PFT is c/w obstructive defect. She is never a smoker. Her A1AT is normal. Both RAST, RIST were unremarkable. -Overall I most suspect that she has mild persistent asthma -Other possibility is post viral prolonged AHR. -She could have both of above. -She is very concerned about long terms side effect of ICS. Also I found her to have mild thrush, which could be responsible for c/o heartburn Plan 1) Fluconazole x 10 days for oropharyngeal candidiasis. 2) reduce arnuity ellipta 100 to MWF. Continue another month and discontinue. 3) advised her to call us if sx recur. In which case, we will need to find out a minimal effective dose of ICS 23 mins were spent in a face to face conversation with the patient (and accompanying family members, if present) regarding my impressions and recommendations and providing counseling. All the questions were answered. . Separately, I have spent an additional time in reviewing charts/records/labs/tests, or discussion with other health care providers. This above does NOT include the time spent in ( ) Smoking cessation counseling ( ) inhaler technique demonstration and teaching. ( checked if applicable) - I personally reviewed ( ) radiographic images. ( ) pulmonary function testing DATA ( ) Laboratory DATA ( apply if checked ) documented in this encounter Plan of Treatment Upcoming Encounters Date Type Department Care Team (Late Contact Info) Description 07/07/2024 11:00 AM EDT Office Visit Cardiology at [address] [address] Lorena Lawrence MD [place] [address] documented as of this encounter Visit Diagnoses Diagnosis Thrush Candidiasis of mouth Mild persistent asthma, uncomplicated Unspecified asthma documented in this encounter Care Teams Surface Grinder Relationship Specialty Start Date End Date Henrietta Null MD [facility] [address] [place] [place] [address] PCP - General 12/20/10 05/08/20 documented as of this encounter
--- OUTSIDE RECORDS SUMMARY | 2024-04-23 12:15 | XMS_ITS | Encounter Summary ---
Author Organization [facility] [place] [address] Care Team Providers Care Nursing Education Specialist Name Role Phone Henrietta Null MD Primary Care Provider [phone] Encounter Details Date Type Department Care Team (Late Contact Info) Description 04/09/2018 Telephone Internal Medicine at [address] [address] Rosa Shook RN Social History Tobacco Use Types Packs/Day [...] encounter Miscellaneous Notes * Telephone Encounter - Deuce Shook RN - 04/09/2018 12:41 PM EDT Patient called on hot line, still having diarrhea, stopped vomiting yesterday but feeling nauseous and sick to stomach today, patient called from work feeling lightheaded, dizzy, stated she was on her way to the ED with her tube drawing supervisor driving her requested a phone call be made to ED Phoned ED, spoke with triage nurse Silvia and provided report documented in this encounter Plan of Treatment Upcoming Encounters Date Type Department Care Team (Late st Contact Info) Description 07/07/2024 11:00 AM EDT Office Visit Cardiology at [address] [place] [address] Lorena Lawrence MD [facility] [place] [address] documented as of this encounter Visit Diagnoses Not on filedocumented in this encounter Care Teams Nursing Education Specialist Relationship Specialty Start Date End Date Henrietta Null MD [facility] [address] [place] [address] PCP - General 12/20/10 05/08/20 documented as of this encounter
--- OUTSIDE RECORDS SUMMARY | 2024-04-23 12:15 | XMS_ITS | Encounter Summary ---
Author Organization [facility] [place] [address] Care Team Providers Care Dipper Clock And Watch Hands Name Role Phone Henrietta Null MD Primary Care Provider [phone] Reason for Visit * Reason Comments Emesis recurrent Encounter Details Date Type Department Care Team (Late st Contact Info) Description 04/09/2018 4:22 PM EDT - 04/09/2018 6:50 PM EDT [place] [id number] Rolf Wood MD [facility] [address] [place] [address] Viral gastroenteritis; Dehydration; Heat exhaustion, initial encounter; Headache; Nausea with vomiting; Diarrhea; Other fatigue; Unsteadiness on feet; 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 Discharge Disposition: Home Social History Tobacco Use [...] Sign Reading Time Taken Comments Blood Pressure 109/51 04/09/2018 5:45 PM EDT Pulse 57 04/09/2018 5:45 PM EDT Temperature 36.7 ??C (98.1 ??F) 04/09/2018 2:01 PM ED T Respiratory Rate 11 04/09/2018 5:45 PM EDT Oxygen Saturation 98% 04/09/2018 5:00 PM EDT Inhaled Oxygen Concentration - - Weight 51.7 kg (114 lb) 04/09/2018 1:06 PM EDT Height 148.6 cm (4' 10.5) 04/09/2018 1:06 PM ED T Body Mass Index 23.42 04/09/2018 1:06 PM EDT documented in this encounter Discharge Instructions * Discharge Instructions* Maggie Cheatham MD - 04/09/2018 6:39 PM EDT Images from the original note were not included. Gastroenteritis: Care Instructions Your Care Instructions Gastroenteritis is an illness that may cause nausea, vomiting, and diarrhea. It is sometimes calledstomach flu. It can be caused by bacteria or a virus. You will probably begin to feel better in 1 to 2 days. In the meantime, get plenty of rest and makesure you do not become dehydrated. Dehydration occurs when your body loses too much fluid. Follow-up care is a [place] part of your treatment and safety. Be sure to make and go to all appointments, and call your doctor if you are having problems. It's also a good idea to know your test resultsand keep a list of the medicines you take. How can you care for yourself at home? ?? If your doctor prescribed antibiotics, take them as directed. Do not stop taking them just because you feel better. You need to take the full course of antibiotics. ?? Drink plenty of fluids to prevent dehydration, enough so that your urine is light yellow or clear like water. Choose water and other caffeine-free clear liquids until you feel better. If you have kidney, heart, or liver disease and have to limit fluids, talk with your doctor before you increase your fluid intake. ?? Drink fluids slowly, in frequent, small amounts, because drinking too much too fast can cause vomiting. ?? Begin eating mild foods, such as dry toast, yogurt, applesauce, bananas, and rice. Avoid spicy, hot, or high-fat foods, and do not drink alcohol or caffeine for a day or two. Do not drink milk or eat ice cream until you are feeling better. How to prevent gastroenteritis ?? Keep hot foods hot and cold foods cold. ?? Do not eat meats, dressings, salads, or other foods that have been kept at room temperature for more than 2 hours. ?? Use a thermometer to check your refrigerator. It should be between 34??F and 40??F. ?? Defrost meats in the refrigerator or microwave, not on the kitchen counter. ?? Keep your hands and your kitchen clean. Wash your hands, cutting boards, and countertops with hot soapy water frequently. ?? Cook meat until it is well done. ?? Do not eat raw eggs or uncooked sauces made with raw eggs. ?? Do not take chances. If food looks or tastes spoiled, throw it out. When should you call for help? Call 911 anytime you think you may need emergency care. For example, call if: ? You vomit blood or what looks like coffee grounds. ? You passed out (lost consciousness). ? You pass maroon or very bloody stools. ??Call your doctor now or seek immediate medical care if: ? You have severe belly pain. ? You have signs of needing more fluids. You have sunken eyes, a dry mouth, and pass only a little dark urine. ? You feel like you are going to faint. ? You have increased belly pain that does not go away in 1 to 2 days. ? You have new or increased nausea, or you are vomiting. ? You have a new or higher fever. ? Your stools are black and tarlike or have streaks of blood. ??Watch closely for changes in your health, and be sure to contact your doctor if: ? You are dizzy or lightheaded. ? You urinate less than usual, or your urine is dark yellow or brown. ? You do not feel better with each day that goes by. Where can you learn more? Visit our health information library at [email or web address]. You can also view health information on [employer], your personal patient account. Log in or sign uptoday. Enter N142 in the search box to learn more about Gastroenteritis: Care Instructions. Current as of: August 16, 2017 Content Version: 11.7 ?? [id number] [employer]. Care instructions adapted under license by [facility]. If you have questions about a medical condition or this instruction, always ask your healthcare professional. [employer] disclaims any warranty or liability for your use of this information. documented in this encounter Medications at Time of Discharge [...] 1 12/15/2017 09/17/2019 fluticasone (FLONASE) 50 mcg/actuation [place], Suspension 1 spray by Each Nare route daily. 16 g 11 10/20/2017 09/17/2019 cyanocobalamin (VITAMIN B-12) 1,000 mcg tablet 12/20/2010 06/01/2021 documented as of this encounter ED Notes * Martín Linton NRP - 04/09/2018 6:48 PM EDT Pt. Advised on how to care for self ambulatory to waiting room * Rolf Wood MD - 04/09/2018 4:49 PM EDT ED Resident Note Heike Ramires is an 73 y.o. female who presents to the ED with: Chief Complaint Patient presents with ??? Emesis recurrent I saw this patient on 04/10/2018. History is from pt. HPI Heike Ramires is a 73 y.o. female who presents to the Emergency Department with recurrent nauseaand fatigue. On 03/07 pt awoke feeling nauseating, had multiple episodes of vomiting, and went to seeher PCP, who prescribed a suppository for emesis. Nausea and vomiting resolved, but pt had onset of multiple episodes of watery diarrhea over the next couple days. This morning, pt had gradually worsening recurrent nausea, w/o vomiting and a wicked 9/10 bifrontal dull persistent BRAGA which pt describes as worst BRAGA of my entire life. Accompanying confusion, unsteadiness, fatigue, and chills. No fever, SOB, CP, abdominal pain, constipation, melena, or dysuria. No exacerbators or relievers. No head trauma. Review of Systems: Review of Systems Constitutional: Positive for chills and fatigue. Negative for diaphoresis and fever. HENT: Negative for postnasal drip and sore throat. Eyes: Negative for visual disturbance. Respiratory: Negative for cough, chest tightness and shortness of breath. Cardiovascular: Negative for chest pain and palpitations. Gastrointestinal: Positive for diarrhea and vomiting. Negative for abdominal distention, abdominal pain, blood in stool, constipation and nausea. Endocrine: Negative for polyuria. Genitourinary: Negative for difficulty urinating and dysuria. Skin: Negative for rash. Allergic/Immunologic: Negative for immunocompromised state. Neurological: Positive for headaches. Psychiatric/Behavioral: Positive for confusion. Physical Exam: Patient Vitals for the past 24 hrs: BP Temp Temp src Pulse Resp SpO2 Height Weight 04/09/18 1745 109/51 - - 57 11 - - - 04/09/18 1700 115/56 - - 58 15 98 % - - 04/09/18 1401 112/52 36.7 ??C (98.1 ??F) Oral - 18 - - - 04/09/18 1308 122/61 - - - - - - - 04/09/18 1306 - 36.8 ??C (98.2 ??F) Oral 66 16 - 148.6 cm (4' 10.5) 51.7 kg (114 lb) GEN: No acute distress. HEENT: Oropharynx clear, pink, dry lips. PULM: No resp distress. CTA b/l. CV: RRR. Nl S1S2. ABD: BS+ Soft, nondistended, nttp. MSK: No gross deformities. NEURO: AAOx3. PERRL. No gross CN deficits. Light touch intact face & body. Moves extremities equally. PSYCH: Normal mood and thought pattern. SKIN: No rashes. ED Course: - Patient seen under the supervision of the attending physician. - Medications, allergies, and past medical history reviewed. Recent Results (from the past 24 hour(s)) Basic Metabolic Panel (non-fasting) Result Value Ref Range Glucose Lvl 87 65 - 199 mg/dL BUN 9 8 - 18 mg/dL Creatinine 0.54 (L) 0.70 - 1.20 mg/dL Sodium 141 135 - 145 mmol/L Potassium 3.2 (L) 3.5 - 5.0 mmol/L Chloride 104 98 - 107 mmol/L CO2 23 22 - 31 mmol/L Anion Gap 14 5 - 15 mmol/L Calcium 8.2 (L) 8.5 - 10.5 mg/dL eGFR 94 >=60 mL/min/1.73 m?? eGFR 108 >=60 mL/min/1.73 m?? Hemogram Result Value Ref Range WBC 4.4 4.0 - 9.5 x10(3)/mcL RBC 3.75 (L) 4.00 - 5.21 x10(6)/mcL Hemoglobin 10.7 (L) 11.7 - 15.5 gm/dL Hematocrit 33.0 (L) 35.7 - 45.8 % MCV 88.0 82.6 - 94.4 fL MCH 28.5 27.1 - 32.0 pg MCHC 32.4 31.7 - 35.0 gm/dL Platelets 163 145 - 357 x10(3)/mcL RDWSD 39.8 37.0 - 46.0 fL RDWCV 12.3 11.5 - 14.1 % MPV 10.5 7.6 - 12.9 fL nRBC % Auto 0.0 % nRBC Abs Auto 0.000 0.000 - 0.000 x10(3)/mcL Differential, Automated Result Value Ref Range Neutrophils % 66.2 % Neutr Abs (ANC) 2.93 1.70 - 6.10 x10(3)/mcL Lymphocytes % 23.0 % Lymphocytes Abs 1.0 0.9 - 3.2 x10(3)/mcL Monocytes % 7.4 % Monocyte Abs 0.3 0.3 - 0.9 x10(3)/mcL Eosinophils % 2.5 % Eosinophils Abs 0.1 0.0 - 0.4 x10(3)/mcL Basophils % 0.7 % Basophils Abs 0.0 0.0 - 0.1 x10(3)/mcL Immature Gran % 0.20 % Anne Gran Abs 0.01 0.00 - 0.04 x10(3)/mcL Urinalysis with reflex Culture Result Value Ref Range Glucose UA Negative Negative mg/dL Protein UA Negative Negative mg/dL Bilirubin UA Negative Negative mg/dL Urobilinogen UA Normal Normal mg/dL pH UA 6.0 5.0 - 8.0 Blood UA Negative Negative mg/dL Ketones UA Negative Negative mg/dL Nitrite UA Negative Negative Leukocytes UA Negative Negative mcL Appearance UA Clear Clear Spec [place] UA 1.001 (L) 1.002 - 1.030 Color UA Colorless Yellow Culture Reflexed No ED Course Maggie Cheatham O's Documentation Comment Time EKG: Normal sinus rhythm. Normal intervals. No ischemic changes. 04/09 1633 Ordered migraine cocktail and fluids. 04/09 1658 Transferred to CDU for chest pain protocol with stress testing and echo. 04/[address] Wood. Given gradual onset of BRAGA and clinical presentation, decision made to hold off on CT Head as SAH unlikely. 04/09 1723 Assessment and Plan: 73 y.o. female p/w recurrent emesis and BRAGA. Symptomatology and absence of WBC make viral gastroenteritis most likely, c/b migraine likely precipitated by dehydration in setting of emesis. Given pt's non-toxic appearance and absence of peritoneal signs, more serious etiologies such as appendicitis, perforation, SBO, and GIB extremely unlikely. Life-threatening etiologies of BRAGA including SAH and subdural hemorrhage considered but deemed extremely unlikely in this pt w/o h/o trauma or focal neuro changes, and whose BRAGA sx were readily controlled. After receiving fluids and BRAGA cocktail pt felt completely improved. - Discharge home - Return precautions, especially pertaining to new focal deficits Return precautions were verbally discussed and written in discharge instructions. The patient and/or family expressed understanding that they could come back to the ED at any time and agreed to the follow-up plan. Maggie Cheatham MD Resident 04/10/18 0018 Maggie Cheatham MD Resident 04/10/18 0018 ED ATTENDING ADDENDUM: The patient was seen in conjunction with Dr. Cheatham, the resident physician. I have independently performed the [place] portions of the history and physical exam. I have reviewed all diagnostic studies personally including labs, imaging studies and EKG's. I have reviewed the patient's chart where indicated. I have also reviewed/obtained the allergies, medication, past medical history, and social history as documented in other parts of the chart. I have discussed the details of the case with the resident and agree with the all [place] portions of the H&P and plan as described in the resident note above. Patient worked more than usual during the day today and was a very hot day. She also does not have air conditioning at home. She knew she was dehydrated. She also states that she was not confused andis more that she felt like she was unsteady and that she knew she had to sit down. She stated to methat her headache was gradual in onset. I believe she likely has dehydration from multifactorial causes including her nausea vomiting diarrhea which is likely gastroenteritis as well as the recent hot weather. Her headache is no different from usual and was easily treatable as well. Rolf Wood MD 04/13/18 1630 * Poonam Resendiz RN - 04/09/2018 2:02 PM EDT Pt educated to wait time, VSS, no change in condition. * Marjan Cruz RN - 04/09/2018 12:45 PM EDT ED RN brief outside phone call note: Heike Ramires is a 73 y.o. who I was called about from [facility] at the [facility] The patient will be evaluated in the Emergency Department for diarrhea, Nausea, dizziness. Pt was seen at [facility] on Friday for Nausea, Vomiting and Diarrhea. Unable to obtain IV access for IV hydration. Pt c/o worsening symptoms and increased dizziness since Friday. Pt is coming in from home for ED evaluation documented in this encounter Miscellaneous Notes * ED Triage - Martín Linton NRP - 04/09/2018 5:03 PM EDT Pt. Report going to lyme clinic on Friday and they gave her a suppository which gave her diarrhea No pain normal Bowel habits told to come to ED by clinic * ED Triage - Poonam Resendiz RN - 04/09/2018 1:09 PM EDT Pt with hx of recurrent n/v, now presents from clinic with same, usually requiring IV hydration butunable to obtain IV access in clinic, pt alert and oriented, VSS, c/o dizziness, educated to wait time, friend at side. documented in this encounter Plan of Treatment Upcoming Encounters Date Type Department Care Team (Late st Contact Info) Description 07/07/2024 11:00 AM EDT Office Visit Cardiology at [address] [place] [address] Lorena Lawrence [place] [id number] documented as of this encounter Procedures Procedure Name Priority Date/Time Associated Diagnosis Comments URINALYSIS WITH REFLEX CULTURE STAT 04/09/2018 6:16 PM EDT HEMOGRAM STAT 04/09/2018 6:10 PM EDT DIFFERENTIAL, AUTOMATED STAT 04/09/2018 6:10 PM EDT CBC (WITH DIFF) STAT 04/09/2018 6:10 PM EDT BASIC METABOLIC PANEL (NON-FASTING) STAT 04/09/2018 6:10 PM EDT documented in this encounter Results * (ABNORMAL) Urinalysis with reflex Culture (04/09/2018 6:16 PM EDT) Glucose UA Negative Negative mg/dL [facility] Protein UA Negative Negative mg/dL [facility] Bilirubin UA Negative Negative mg/dL [facility] Comment: Clinical correlation required for positive Urine Bilirubin results as false positive may occur with some drugs and drug related products. If a false positive is suspected a serum total bilirubin should be considered if clinically indicated. Urobilinogen UA Normal Normal mg/dL [facility] pH UA 6.0 5.0 - 8.0 [facility] Blood UA Negative Negative mg/dL [facility] Ketones UA Negative Negative mg/dL [facility] Nitrite UA Negative Negative [facility] Leukocytes UA Negative Negative [facility] Appearance UA Clear Clear [facility] Spec [place] UA 1.001(L) 1.002 - 1.030 [facility] Color UA Colorless Yellow [facility] Culture Reflexed No [facility] Urine specimen obtained by clean catch procedure (specimen) 04/09/2018 6:16 PM EDT 04/09/2018 6:29 PM EDT Narrative Resulting Agency Comment Spec In Lab Rolf Wood MD URINE ORDERABLES [facility] [place] [address] * Differential, Automated (04/09/2018 6:10 PM EDT) Neutrophils % 66.2 % [facility] Neutr Abs (ANC) 2.93 1.70 - 6.10 x10(3)/[facility] Lymphocytes % 23.0 % [facility] Lymphocytes Abs 1.0 0.9 - 3.2 x10(3)/[facility] Monocytes % 7.4 % [facility] Monocyte Abs 0.3 0.3 - 0.9 x10(3)/[facility] Eosinophils % 2.5 % [facility] Eosinophils Abs 0.1 0.0 - 0.4 x10(3)/[facility] Basophils % 0.7 % [facility] Basophils Abs 0.0 0.0 - 0.1 x10(3)/[facility] Immature Gran % 0.20 % [facility] Comment: Immature granulocytes(IG's)percentage and absolute count will include metamyelocytes, myelocytes, and promyelocytes. Blood smears from CBCs yielding IG's will be scanned manually for concordance. If this scan disagrees with the automated IG or if promyelocytes are noted, a manual differential will be performed. Anne Gran Abs 0.01 0.00 - 0.04 x10(3)/[facility] Blood specimen (specimen) 04/09/2018 6:10 PM EDT 04/09/2018 6:30 PM EDT Narrative Resulting Agency Comment Spec In Lab Maggie Cheatham MD HEMATOLOGY ORDERABLE S [facility] [place] [address] * (ABNORMAL) Hemogram (04/09/2018 6:10 PM EDT) WBC 4.4 4.0 - 9.5 x10(3)/[facility] RBC 3.75(L) 4.00 - 5.21 x10(6)/[facility] Hemoglobin 10.7(L) 11.7 - 15.5 gm/dL [facility] Hematocrit 33.0(L) 35.7 - 45.8 % [facility] MCV 88.0 82.6 - 94.4 fL [facility] MCH 28.5 27.1 - 32.[address] [facility] MCHC 32.4 31.7 - 35.0 gm/dL [facility] Platelets 163 145 - 357 x10(3)/[facility] RDWSD 39.8 37.0 - 46.[address] [facility] RDWCV 12.3 11.5 - 14.1 % [facility] MPV 10.5 7.6 - 12.[address] [facility] nRBC % Auto 0.0 % [facility] nRBC Abs Auto 0.000 0.000 - 0.000 x10(3)/[facility] Blood specimen (specimen) 04/09/2018 6:10 PM EDT 04/09/2018 6:30 PM EDT Narrative Resulting Agency Comment Spec In Lab Maggie Cheatham MD HEMATOLOGY ORDERABLE S [facility] [place] [address] * (ABNORMAL) Basic Metabolic Panel (non-fasting) (04/09/2018 6:10 PM EDT) Glucose Lvl 87 65 - 199 mg/dL [facility] Comment:Diabetes: >=200 mg/d L plus symptoms BUN 9 8 - 18 mg/dL [facility] Comment:result rechecked-GI Creatinine 0.54(L) 0.70 - 1.20 mg/dL [facility] Sodium 141 135 - 145 mmol/L [facility] Potassium 3.2(L) 3.5 - 5.0 mmol/L [facility] Comment: result rechecked-GI Please note: ??Patients with WBC >100,000 may have falsely elevated Potassium levels. ??For accurate Potassium quantification in these patients send serum separator tube (gold top) for subsequent determinations. ??Contact the Clinical Chemistry Laboratory if there are any questions. Chloride 104 98 - 107 mmol/L [facility] CO2 23 22 - 31 mmol/L [facility] Anion Gap 14 5 - 15 mmol/L [facility] Calcium 8.2(L) 8.5 - 10.5 mg/dL [facility] Estimated GFR 94 >=60 mL/min/1. 73 m?? [facility] Comment: The eGFR was calculated using the CKD-EPI equation. As with all creatinine based estimates of kidney function, eGFR values calculated with the CKD-EPI equation are not accurate in patients with acute kidney failure, extremes of body mass or the acutely ill. http://The TechMap/Direct Hitnkdep http://The TechMap/Appconomynkf eGFR 108 >=60 mL/min/1. 73 m?? [facility] Comment: The eGFR was calculated using the CKD-EPI equation. As with all creatinine based estimates of kidney function, eGFR values calculated with the CKD-EPI equation are not accurate in patients with acute kidney failure, extremes of body mass or the acutely ill. http://The TechMap/Direct Hitnkdep http://The TechMap/Direct HitMCnkf Blood specimen (specimen) 04/09/2018 6:10 PM EDT 04/09/2018 6:31 PM EDT Narrative Resulting Agency Comment Spec In Lab Rolf Wood MD CHEMISTRY ORDERABLES 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 documented in this encounter Administered Medications Inactive Administered Medications - up to 3 most recent administrations Medication Order MAR Action Action Date Dose Rate Site ketorolac (TORADOL) injection 15 mg 15 mg, Intravenous, ONCE, 1 dose, On Indira 04/09/18 at 1650, STAT Given 04/09/2018 5:17 PM EDT 15 mg lactated Ringers 1,000 mL IV bolus at 2,000 mL/hr, Intravenous, ONCE, 1 dose, On Indira 18 at 1650 New Bag 04/09/2018 5:15 PM EDT 2000 mL/hr ondansetron (ZOFRAN-ODT) oral disintegrating tablet 4 mg 4 mg, Oral, ONCE, 1 dose, On Indira 04/09/18 at 1650, STAT Given 04/09/2018 5:16 PM EDT 4 mg prochlorperazine (COMPAZINE) injection 10 mg 10 mg, Intravenous, ONCE, 1 dose, On Indira 04/09/18 at 1650, STAT Given 04/09/2018 5:18 PM EDT 10 mg documented in this encounter Active and Recently Administered Medications Times are shown in EDT. Scheduled Medication Order 04/07/2018 04/08/2018 04/09/2018 ketorolac (TORADOL) injection 15 mg (COMPLETED) 15 mg, Intravenous, ONCE, 1 dose, On Indira 04/09/18 at 1650, STAT 1717 (Given - Provid er: Martín Linton NRP) lactated Ringers 1,000 mL IV bolus (COMPLETED) at 2,000 mL/hr, Intravenous, ONCE, 1 dose, On Indira 04/09/18 at 1650 1715 (New Bag - Prov ider: Martín Linton NRP)1816 (Stopped - Provider: Poonam Helton RN) ondansetron (ZOFRAN-ODT) oral disintegrating tablet 4 mg (COMPLETED) 4 mg, Oral, ONCE, 1 dose, On Indira 04/09/18 at 1650, STAT 1716 (Given - Provid er: Martín Linton NRP) prochlorperazine (COMPAZINE) injection 10 mg (COMPLETED) 10 mg, Intravenous, ONCE, 1 dose, On Indira 18 at 1650, STAT 1718 (Given - Provid er: Martín Linton NRP) documented in this encounter Care Teams [employer] And [employer] Relationship Specialty Start Date End Date Henrietta Null MD [facility] [address] [address] PCP - General 12/20/10 05/08/20 documented as of this encounter
--- OUTSIDE RECORDS SUMMARY | 2024-04-23 12:15 | XMS_ITS | Encounter Summary ---
Author Organization [facility] [place] [address] Care Team Providers Care Climatologist Name Role Phone Henrietta Null MD Primary Care Provider [phone] Reason for Visit * Reason Onset Date Comments Medication Problem 10/27/2019 Encounter Details Date Type Department Care Team (Late st Contact Info) Description 10/27/2019 Telephone Internal Medicine at [address] [address] Diana Nguyen Medication Problem Social History Tobacco Use Types [...] encounter Miscellaneous Notes * Telephone Encounter - Diana Nguyen - 10/27/2019 1:06 PM EST Pharmacy or caller: patient Medication: Cataplex D Supplement manufactured by [employer] Message: pt called with correct spelling of supplement she's been taking. Said she was told to takeonly (1) per day not (2). Pt stated she thinks she'll stop it all together for a week and see what happens. Please call pt back. documented in this encounter Plan of Treatment Upcoming Encounters Date Type Department Care Team (Late st Contact Info) Description 07/07/2024 11:00 AM EDT Office Visit Cardiology at [address] [facility] [place] [address] Lorena Lawrence MD [facility] [place] [address] documented as of this encounter Visit Diagnoses Not on filedocumented in this encounter Care Teams Climatologist Relationship Specialty Start Date End Date Henrietta Null MD [facility] [address] [place] [address] PCP - General 12/20/10 05/08/20 documented as of this encounter
--- OUTSIDE RECORDS SUMMARY | 2024-04-23 12:15 | XMS_ITS | Encounter Summary ---
Author Organization [facility] [place] [address] Care Team Providers Care Crew Director Name Role Phone Henrietta Null MD Primary Care Provider [phone] Encounter Details Date Type Department Care Team (Latest Contact Info) Description 04/02/2018 9:30 AM EDT Laboratory Appointment Internal Medicine at [address] [id number] Hyperlipidemia, unspecified hyperlipidemia type Social History Tobacco Use Types Packs/Day Years [...] AM EDT Office Visit Cardiology at [address] [place] [address] Lorena Lawrence MD [facility] [place] [address] documented as of this encounter Procedures Procedure Name Priority Date/Time Associated Diagnosis Comments HEPATIC FUNCTION PANEL Routine 04/02/2018 9:14 AM EDT Hyperlipidemia, unspecified hyperlipidemia type LIPID PANEL (REFLEX DIRECT LDL) Routine 04/02/2018 9:14 AM EDT Hyperlipidemia, unspecified hyperlipidemia type documented in this encounter Results * Hepatic Function Panel (04/02/2018 9:14 AM EDT) Total Protein 6.8 6.1 - 8.0 gm/dL [facility] Albumin 4.0 3.2 - 5.2 gm/dL [facility] AST 23 0 - 30 unit/L [facility] ALT 22 0 - 30 unit/L [facility] Alk Phos 93 40 - 104 unit/L [facility] Total Bilirubin 0.6 0.2 - 1.3 mg/dL [facility] Bili, Direct 0.1 0.0 - 0.3 mg/dL [facility] Blood specimen (specimen) 04/02/2018 9:14 AM EDT 04/02/2018 12:08 PM EDT Narrative Resulting Agency Comment Spec In Lab Henrietta Null MD CHEMISTRY ORDERABLES [facility] [place] [place] [address] * Lipid Panel (04/02/2018 9:14 AM EDT) Chol, Total 241 mg/dL [facility] Comment: Lower Risk: <200 mg/dL Average Risk: 200-239 mg/dL Higher Risk: >io=574 mg/dL Triglycerides 105 mg/dL [facility] Comment: Average Risk/Lower Risk: <150 mg/dL Borderline High Risk: 150-199 mg/dL High Risk: 200-499 mg/dL Very High Risk: >fy=967 mg/dL HDL 60 mg/dL [facility] Comment: Males: ?? Higher Risk: <40 mg/dL Females: ?? HIgher Risk: <50 mg/dL LDL Cholesterol 160 mg/dL [facility] Comment: Lowest Risk: <100 mg/dL Lower Risk: 100-129 mg/dL Borderline High Risk: 130-159 mg/dL High Risk: 160-189 mg/dL Very High Risk: >wq=678 mg/dL Chol/HDL Ratio 4.0 ratio [facility] Lipid Interpretation See Note [facility] Comment: Lipid management should be guided by a patient? s ASCVD risk, goals and preferences. ACC/AHA Guidelines recommend high intensity statin if clinical ASCVD or LDL greater than or equal to 190 mg/dL. [email or web address] Adults aged 40-75 with LDL 70-189 mg/dL should have their 10 year ASCVD risk estimated with the ACC/AHA ASCVD risk construction job cost estimator http://tools.acc.org/BKAZU-Ygto-Cqfqxbgxt/ Statin should be discussed if risk greater than or equal to 7.5% in non-diabetics. With diabetes, moderate intensity statin is recommended if risk less than 7.5%, high intensity if risk greater than or equal to 7.5%. Annual lipid monitoring on statins is not necessary. Evaluate secondary causes of Triglycerides greater than 500 mg/dL or LDL greater than 190 mg/dL: See table 6 of ACC/AHA Guideline. Lifestyle modification is a critical component of ASCVD risk reduction. Blood specimen (specimen) 04/02/2018 9:14 AM EDT 04/02/2018 12:08 PM EDT Narrative Resulting Agency Comment Spec In Lab Henrietta Null MD CHEMISTRY ORDERABLES Performing Organization Address City/State/[facility] Co de Phone Number [facility] [place] [address] documented in this encounter Visit Diagnoses Diagnosis Hyperlipidemia, unspecified hyperlipidemia type documented in this encounter Care Teams Crew Director Relationship Specialty Start Date End Date Henrietta Null MD [facility] [address] [place] [address] PCP - General 12/20/10 05/08/20 documented as of this encounter
--- OUTSIDE RECORDS SUMMARY | 2024-04-23 12:15 | XMS_ITS | Encounter Summary ---
Author Organization [facility] [place] [address] Care Team Providers Care Cement Or Concrete Finishing Supervisor Name Role Phone Henrietta Null MD Primary Care Provider [phone] Reason for Visit * Reason Comments Actinic Keratosis froze off nose today Ear Fullness needs ear flush toda y Encounter Details Date Type Department Care Team (Late st Contact Info) Description 10/26/2019 9:40 AM EST Office Visit Internal Medicine at [address] [id number] Henrietta Null MD [facility] [place] [address] Impacted cerumen of right ear; AK (actinic keratosis); Osteoporosis, unspecified osteoporosis type, unspecified pathological fracture presence Social History Tobacco Use Types Packs/Day Years [...] Sign Reading Time Taken Comments Blood Pressure 130/55 10/26/2019 9:18 AM EST Pulse 67 10/26/2019 9:18 AM EST Temperature - - Respiratory Rate - - Oxygen Saturation 96% 10/26/2019 9:18 AM EST Inhaled Oxygen Concentration - - Weight 54.6 kg (120 lb 6.4 oz) 10/26/2019 9:18 A M EST Height 148.1 cm (4' 10.31) 10/26/2019 9:[address] reported Body Mass Index 24.9 10/26/2019 9:18 AM EST documented in this encounter Progress Notes * Juliann Paez CCMA - 10/26/2019 9:40 AM EST Using at 1/10 solution of hydrogen peroxide and warm water and the Elephant ear wash system, I flushed a minimal amount of cerumen from the right ear. I was unable to clear cerumen from right ear, and referred back to Dr. Null to finish with curette. Patient tolerated well. * Henrietta Null MD - 10/26/2019 9:40 AM EST ESTABLISHED PATIENT FOLLOW-UP VISIT Chief Complaint Patient presents with ??? Actinic Keratosis froze off nose today ??? Ear Fullness needs ear flush today Pt is a 74 y.o. female who presents for scheduled follow up visit. She was seen 1 month ago for AWVwith f/up today for procedures including cerumen removal and cryotherapy of an AK on her nose. She also needs to have labs drawn that were ordered at last visit. She had a dexa scan this morning to follow up on her osteoporosis ROS: Constitutional - no fevers, chills, weight [...] to Visit Medication Sig Dispense Refill ??? CALCIUM LACTATE ORAL Take by mouth. [...] Other specified aftercare following surgery Z48.89 Social History Patient does not qualify to have social determinant information on file (likely too young). Social History Narrative Lives in [place], with her . 4 children ([facility], [facility], next door). 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 Enjoying cooking, gardening, swimming. No tob No etoh rare caffeine (tea) exercise at work only Father age 88, + cerebral aneurysm, also with AAA Mother age 40 with SLE Colon Cancer - sister Pancreatic Duct cancer? - sister, also with COPD Brother - from trauma, pt relates to etoh Sister - diverticulitis Sister - alzheimer's Physical Exam: Vitals: 10/26/19 0918 BP: 130/55 BP Location (NBP): Left arm Patient Position: Sitting BP Cuff Sizes: Adult (25-34 cm) Pulse: 67 SpO2: 96% Weight: 54.6 kg (120 lb 6.4 oz) Height: 148.1 cm (4' 10.31) Wt Readings from Last 3 Encounters: 10/26/19 54.6 kg (120 lb 6.4 oz) 09/17/19 53.3 kg (117 lb 9.6 oz) 04/09/18 51.7 kg (114 lb) General - No acute distress. ENT - + cerumen impaction of R canal. Skin - + scaling erythematous lesion on bridge of nose. Procedures at today's visit 1. Removal of large mass of cerumen from R ear canal with lighted cerumen. 2. After verbal consent, a time-out was conducted just before the start of the procedure to verify the correct patient and procedure, procedure location, and all relevant critical information. Liquidnitrogen to lesion x 2 with ~20-30 sec freeze time with each treatment. Pt tolerated procedure wellwithout any immediate complications. Assessment and Plan: Heike was seen today for actinic keratosis and ear fullness. Diagnoses and all orders for this visit: Impacted cerumen of right ear - MA attempt at ear lavage without wax removal. Removed by myself with lighted curette. AK (actinic keratosis) - treated with liquid nitrogen as documented. Osteoporosis, unspecified osteoporosis type, unspecified pathological fracture presence - Vitamin D, 25-Hydroxy - CBC (with Diff) - Comprehensive metabolic panel (non-fasting) - Hemogram - Differential, Automated documented in this encounter Plan of Treatment Upcoming Encounters Date Type Department Care Team (Late st Contact Info) Description 07/07/2024 11:00 AM EDT Office Visit Cardiology at [address] [place] [address] Lorena Lawrence MD [facility] [place] [address] documented as of this encounter Procedures Procedure Name Priority Date/Time Associated Diagnosis Comments HEMOGRAM Routine 10/26/2019 10:23 AM EST Osteoporosis, unspecified osteoporosis type, unspecified pathological fracture presence DIFFERENTIAL, AUTOMATED Routine 10/26/2019 10:23 AM EST Osteoporosis, unspecified osteoporosis type, unspecified pathological fracture presence HC VENIPUNCTURE Routine 10/26/2019 10:23 AM EST Osteoporosis, unspecified osteoporosis type, unspecified pathological fracture presence HC CBC,PLT & AUTO DIFF Routine 10/26/2019 10:23 AM EST Osteoporosis, unspecified osteoporosis type, unspecified pathological fracture presence COMPREHENSIVE METABOLIC PANEL (NON-FASTING) Routine 10/26/2019 10:23 AM EST Osteoporosis, unspecified osteoporosis type, unspecified pathological fracture presence documented in this encounter Results * Differential, Automated (10/26/2019 10:23 AM EST) Neutrophils % 63.0 % [facility] Neutr Abs (ANC) 3.40 1.70 - 6.10 x10(3)/[facility] Lymphocytes % 23.5 % [facility] Lymphocytes Abs 1.3 0.9 - 3.2 x10(3)/[facility] Monocytes % 8.5 % [facility] Monocyte Abs 0.5 0.3 - 0.9 x10(3)/[facility] Eosinophils % 4.1 % [facility] Eosinophils Abs 0.2 0.0 - 0.4 x10(3)/[facility] Basophils % 0.7 % [facility] Basophils Abs 0.0 0.0 - 0.1 x10(3)/[facility] Immature Gran % 0.20 % [facility] Comment: Immature granulocytes(IG's)percentage and absolute count will include metamyelocytes, myelocytes, and promyelocytes. Blood smears from CBCs yielding IG's will be scanned manually for concordance. If this scan disagrees with the automated IG or if promyelocytes are noted, a manual differential will be performed. Anne Gran Abs 0.01 0.00 - 0.04 x10(3)/[facility] Blood specimen (specimen) 10/26/2019 10:23 AM EST 10/26/2019 11:48 AM EST Narrative Resulting Agency Comment Spec In Lab Henrietta Null MD HEMATOLOGY ORDERABLE S [facility] [place] [address] * (ABNORMAL) Hemogram (10/26/2019 10:23 AM EST) WBC 5.4 4.0 - 9.5 x10(3)/[facility] RBC 4.48 4.00 - 5.21 x10(6)/[facility] Hemoglobin 12.6 11.7 - 15.5 gm/dL [facility] Hematocrit 41.2 35.7 - 45.8 % [facility] MCV 92.0 82.6 - 94.4 [facility] MCH 28.1 27.1 - 32.0 pg [facility] MCHC 30.6(L) 31.7 - 35.0 gm/dL [facility] Platelets 216 145 - 357 x10(3)/[facility] RDWSD 43.5 37.0 - 46.0 [facility] RDWCV 12.8 11.5 - 14.1 % [facility] MPV 10.5 7.6 - 12.9 [facility] nRBC % Auto 0.0 % [facility] nRBC Abs Auto 0.000 0.000 - 0.000 x10(3)/[facility] Blood specimen (specimen) 10/26/2019 10:23 AM EST 10/26/2019 11:48 AM EST Narrative Resulting Agency Comment Spec In Lab Henrietta Null MD HEMATOLOGY ORDERABLE S [facility] [place] [address] * (ABNORMAL) Comprehensive metabolic panel (non-fasting) (10/26/2019 10:23 AM EST) Glucose Lvl 91 65 - 199 mg/dL [facility] Comment:Diabetes: >=200 mg/d L plus symptoms BUN 19(H) 8 - 18 mg/dL [facility] Creatinine 0.69(L) 0.70 - 1.20 mg/dL [facility] Sodium 139 135 - 145 mmol/L [facility] Potassium 3.9 3.5 - 5.0 mmol/L [facility] Comment: Please note: ??Patients with WBC >100,000 may have falsely elevated Potassium levels. ??For accurate Potassium quantification in these patients send serum separator tube (gold top) for subsequent determinations. ??Contact the Clinical Chemistry Laboratory if there are any questions. Chloride 102 98 - 107 mmol/L [facility] CO2 26 22 - 31 mmol/L [facility] Anion Gap 11 5 - 15 mmol/L [facility] Calcium 9.4 8.5 - 10.5 mg/dL [facility] Total Protein 6.9 6.1 - 8.0 gm/dL [facility] Albumin 4.3 3.2 - 5.2 gm/dL [facility] AST 22 0 - 30 unit/L [facility] ALT 27 0 - 30 unit/L [facility] Alk Phos 108(H) 35 - 105 unit/L [facility] Total Bilirubin 0.4 0.2 - 1.3 mg/dL [facility] Estimated GFR 86 >=60 mL/min/1. 73 m?? [facility] Comment: The eGFR was calculated using the CKD-EPI equation. As with all creatinine based estimates of kidney function, eGFR values calculated with the CKD-EPI equation are not accurate in patients with acute kidney failure, extremes of body mass or the acutely ill. [email or web address]/DHMCnkf eGFR 99 >=60 mL/min/1. 73 m?? [facility] Comment: The eGFR was calculated using the CKD-EPI equation. As with all creatinine based estimates of kidney function, eGFR values calculated with the CKD-EPI equation are not accurate in patients with acute kidney failure, extremes of body mass or the acutely ill. [email or web address] Blood specimen (specimen) 10/26/2019 10:23 AM EST 10/26/2019 11:49 AM EST Narrative Resulting Agency Comment Spec In Lab Henrietta Null MD CHEMISTRY ORDERABLES [facility] [place] [address] * Vitamin D, 25-Hydroxy (10/26/2019 10:23 AM EST) 25-OH Vit D Total 70 30 - 100 ng/mL [facility] Comment: As of 2019, 25-hydroxyvitamin D testing has moved from the [id number] to the [employer]. No substantial change in measured values is expected. Blood specimen (specimen) 10/26/2019 10:23 AM EST 10/26/2019 11:49 AM EST Narrative Resulting Agency Comment Spec In Lab Henrietta Null MD CHEMISTRY ORDERABLES [facility] [place] [address] documented in this encounter Visit Diagnoses Diagnosis Impacted cerumen of right ear Impacted cerumen AK (actinic keratosis) Actinic keratosis Osteoporosis, unspecified osteoporosis type, unspecified pathological fracture presence documented in this encounter Care Teams Cement Or Concrete Finishing Supervisor Relationship Specialty Start Date End Date Henrietta Null MD [facility] [address] [address] PCP - General 12/20/10 05/08/20 documented as of this encounter
--- OUTSIDE RECORDS SUMMARY | 2024-04-23 12:15 | XMS_ITS | Encounter Summary ---
Author Organization [facility] [place] [address] Care Team Providers Care Screw Eye Assembler Name Role Phone Henrietta Null MD Primary Care Provider [phone] Encounter Details Date Type Department Care Team (Latest Contact Info) Description 12/29/2017 8:26 AM EDT - 12/29/2017 11:59 PM EDT Hospital Encounter Pulmonology at [facility] [place] [id number] KRUGER (dyspnea on exertion); Chronic cough; Acute URI Discharge Disposition: Home Social History Tobacco Use [...] Take 1 tablet by mouth daily. 01/10/2012 fluticasone furoate (ARNUITY ELLIPTA) 100 mcg/actuation Disk with DeviceIndications:Mild persistent asthma, uncomplicated Inhale 1 Act into the lungs daily for 30 days. 1 each 3 12/29/2017 01/28/2018 omeprazole (PRILOSEC) 40 mg Capsule, Delayed Release(E.C.) Take 1 capsule by mouth daily for 30 days. 30 capsule 12/15/2017 01/14/2018 albuterol 90 mcg/actuation HFA Aerosol Inhaler Inhale 1 puff into the lungs 4 times daily. Use with spacer 1 Inhaler 1 12/15/2017 09/17/2019 fluticasone (FLONASE) 50 mcg/actuation [place], Suspension 1 spray by Each Nare route daily. 16 g 11 10/20/2017 09/17/2019 cyanocobalamin (VITAMIN B-12) 1,000 mcg tablet 12/20/201006/01 documented as of this encounter Procedure Notes * Chalo Gonzales MD - 12/29/2017 10:06 PM EDTAssociated Order(s): PULMONARY FUNCTION TEST; PULMONARY FUNCTION TEST Spirometry: FVC is normal FEV1 is normal FEV1 / FVC ratio is decreased Diffusion: DLCO is decreased Fractional excretion of Nitric Oxide (FENO): 20 ppb ?? Nitric oxide (NO) is recognized as a biomarker for eosinophilic airway inflammation, as is generally the case in asthma.?? Measuring NO in exhaled breath can help determine whether non-specific respiratory symptoms of wheezing, dyspnea, and cough are due to asthma.?? However, there are several important limitations of using this test to diagnose and treat asthma.?? Guidelines from a 2011 AmericanThoracic Society (ATS) executive summary on the clinical use of FeNO are listed. ?? Diagnostic Use: ?? A FeNO <25 ppb suggests that eosinophilic airway inflammation, and by inference, clinical responsiveness to corticosteroids, is less likely. ?? A FeNO >50 ppb indicates that eosinophilic airway inflammation and responsiveness to corticosteroids in symptomatic patients are both likely. ?? FeNO levels between 25 and 50 ppb should be interpreted cautiously and in context. ?? Persistent and/or high allergen exposure is a factor associated with higher FeNO levels (>50 ppb). ?? The presence or absence of respiratory symptoms is an important consideration when interpreting FeNO. ?? Monitoring Response: ?? A minimally important decrease in FeNO is defined as >20% for values >50 ppb or more than 10 ppb for values <50 ppb from one visit to the next. ?? A reduction of an elevated FeNO of >20% occurring 2-6 weeks after anti- inflammatory treatmentinitiation is consistent with therapeutic efficacy. Interpretation: ?? Mild airflow obstruction ?? Mildly decreased diffusion ?? FeNO normal Chalo Gonzales MD documented in this encounter Plan of Treatment Upcoming Encounters Date Type Department Care Team (Late st Contact Info) Description 07/07/2024 11:00 AM EDT Office Visit Cardiology at [address] [place] [id number] Lorena Lawrence MD [facility] [place] [id number] documented as of this encounter Procedures Procedure Name Priority Date/Time Associated Diagnosis Comments COMMON PULMONARY FUNCTION TEST Routine 12/29/2017 10:14 PM EDT Chronic cough Acute URI COMMON PULMONARY FUNCTION TEST Routine 12/29/2017 10:14 PM EDT KRUGER (dyspnea on exertion) documented in this encounter Results * Pulmonary Function Testing (12/29/2017 10:14 PM EDT) Narrative Chalo Gonzales MD - 12/29/2017 10:14 PM EDT Chalo Gonzales MD ? 12/29/2017 10:14 PM Spirometry: FVC is normal FEV1 is normal FEV1 / FVC ratio is decreased Diffusion: DLCO is decreased Fractional excretion of Nitric Oxide (FENO): 20 ppb ?? Nitric oxide (NO) is recognized as a biomarker for eosinophilic airway inflammation, as is generally the case in asthma.?? Measuring NO in exhaled breath can help determine whether non-specific respiratory symptoms of wheezing, dyspnea, and cough are due to asthma.?? However, there are several important limitations of using this test to diagnose and treat asthma.?? Guidelines from a 2011 [place] [employer] (ATS) executive summary on the clinical use of FeNO are listed. ?? Diagnostic Use: ?? A FeNO <25 ppb suggests that eosinophilic airway inflammation, and by inference, clinical responsiveness to corticosteroids, is less likely. ?? A FeNO >50 ppb indicates that eosinophilic airway inflammation and responsiveness to corticosteroids in symptomatic patients are both likely. ?? FeNO levels between 25 and 50 ppb should be interpreted cautiously and in context. ?? Persistent and/or high allergen exposure is a factor associated with higher FeNO levels (>50 ppb). ?? The presence or absence of respiratory symptoms is an important consideration when interpreting FeNO. ?? Monitoring Response: ?? A minimally important decrease in FeNO is defined as >20% for values >50 ppb or more than 10 ppb for values <50 ppb from one visit to the next. ?? A reduction of an elevated FeNO of >20% occurring 2-6 weeks after anti-inflammatory treatment initiation is consistent with therapeutic efficacy. Interpretation: ?? Mild airflow obstruction ?? Mildly decreased diffusion ?? FeNO normal Chalo Gonzales MD Yovani Swanson MD PFT ORDERABLES * Pulmonary Function Testing (12/29/2017 10:14 PM EDT) Narrative Chalo Gonzales MD - 12/29/2017 10:14 PM EDT Chalo Gonzales MD ? 12/29/2017 10:14 PM Spirometry: FVC is normal FEV1 is normal FEV1 / FVC ratio is decreased Diffusion: DLCO is decreased Fractional excretion of Nitric Oxide (FENO): 20 ppb ?? Nitric oxide (NO) is recognized as a biomarker for eosinophilic airway inflammation, as is generally the case in asthma.?? Measuring NO in exhaled breath can help determine whether non-specific respiratory symptoms of wheezing, dyspnea, and cough are due to asthma.?? However, there are several important limitations of using this test to diagnose and treat asthma.?? Guidelines from a 2011 [place] [employer] (ATS) executive summary on the clinical use of FeNO are listed. ?? Diagnostic Use: ?? A FeNO <25 ppb suggests that eosinophilic airway inflammation, and by inference, clinical responsiveness to corticosteroids, is less likely. ?? A FeNO >50 ppb indicates that eosinophilic airway inflammation and responsiveness to corticosteroids in symptomatic patients are both likely. ?? FeNO levels between 25 and 50 ppb should be interpreted cautiously and in context. ?? Persistent and/or high allergen exposure is a factor associated with higher FeNO levels (>50 ppb). ?? The presence or absence of respiratory symptoms is an important consideration when interpreting FeNO. ?? Monitoring Response: ?? A minimally important decrease in FeNO is defined as >20% for values >50 ppb or more than 10 ppb for values <50 ppb from one visit to the next. ?? A reduction of an elevated FeNO of >20% occurring 2-6 weeks after anti-inflammatory treatment initiation is consistent with therapeutic efficacy. Interpretation: ?? Mild airflow obstruction ?? Mildly decreased diffusion ?? FeNO normal Chalo Gonzales MD Yovani Swanson MD PFT ORDERABLES documented in this encounter Visit Diagnoses Diagnosis KRUGER (dyspnea on exertion) Other dyspnea and respiratory abnormality Chronic cough Cough Acute URI Acute upper respiratory infections of unspecified site documented in this encounter Care Teams Screw Eye Assembler Relationship Specialty Start Date End Date Henrietta Null MD [facility] [address] [place] [address] PCP - General 12/20/10 05/08/20 documented as of this encounter
--- OUTSIDE RECORDS SUMMARY | 2024-04-23 12:15 | XMS_ITS | Encounter Summary ---
Author Organization [facility] [place] [address] Care Team Providers Care Counselor Education Professor Name Role Phone Henrietta Null MD Primary Care Provider [phone] Reason for Visit * Auth/Cert Specialty Diagnoses / Procedures Referred By Evelio mathis Referred To Contact Diagnoses NSTEMI Procedures EMERGENCY IPI Referral ID Status Reason Start Date Expiration Date Visits Re quested Visits Authorized [id number] 1 1 Encounter Details Date Type Department Care Team (Latest Contact Info) Description 01/06/2020 11:51 AM EDT - 01/08/2020 1:38 PM EDT Hospital Encounter Intermediate Cardiac [place] [address] Carley Martinez MD [facility] [place] [address] Ab Ervin MD [facility] [address] Non-ST elevation myocardial infarction (NSTEMI) Discharge Disposition: Home Social History Tobacco Use [...] Sign Reading Time Taken Comments Blood Pressure 102/45 01/08/2020 11:31 AM EDT Pulse 76 01/08/2020 11:31 AM EDT Temperature 37.2 ??C (99 ??F) 01/08/2020 11:31 AM EDT Respiratory Rate 18 01/08/2020 11:31 AM EDT Oxygen Saturation 97% 01/08/2020 11:31 AM EDT Inhaled Oxygen Concentration - - Weight 55.5 kg (122 lb 5.7 oz) 01/08/2020 5:40 A M EDT Height 148.6 cm (4' 10.5) 01/06/2020 11:56 AM E DT Body Mass Index 25.14 01/06/2020 11:56 AM EDT documented in this encounter Discharge Summaries * Ab Ervin MD - 01/08/2020 1:38 PM EDT Discharge Summary Patient Name: Heike Ramires Patient Age: 74 y.o. Language: Bolivian Race: White Ethnicity: Not nor Admit date: 01/06/2020 Discharge date and time: 01/08/2020 6:15 PM Attending Physician: Ab Ervin MD Discharge Physician: Ab Ervin MD Follow-up Recommendations for Providers: 1. Discharge weight 55.5 kg 2. Diuretic dosing at discharge Lasix 20 mg daily 3. Please closely monitor BP and HR on newly prescribed Toprol XL 25 mg and Losartan 25 mg. 4. Iron and iron sat were 23 and 12, please follow. 5. BMP within 7-10 days of discharge. Patient provided with lab slip. 6. Follow up echocardiogram in ~1-3 months to reassess left ventricular wall motion. Inpatient Provider Contact Information: MD Ab Tierney MD Alyce Vendetti, PA-C Janette Stender, MAIL PROCESSING MACHINE OPERATOR Discharge Diagnoses (Hospital Problems) and Secondary Diagnoses (Chronic Problems): Active Hospital Problems Diagnosis ??? Stress-induced cardiomyopathy Resolved Hospital Problems No resolved problems to display. Active Non-Hospital Problems Diagnosis ??? Other specified aftercare following surgery ??? Skin lesion of hand ??? Nevus, atypical - foot ??? Trigger fingers, left thumb and ring, right ring ??? Preventative health care ??? Ovarian fibroma ??? Osteoporosis ??? Trigeminal neuralgia Operations/Major Procedures: Operations: Procedure(s): CARDIAC CATHETERIZATION Hemodynamics: Left Heart Pressures Resting: Syst Diast EDP a v m Ao 102 54 73 LV 100 20 Coronary Angiography: Dominance: Right Left Main The left main was normal, free of disease. Left Anterior Descending The left anterior descending (LAD) was normal, free of disease. Left Circumflex The left circumflex (LCX) was normal, free of disease. Right Coronary Artery The right coronary artery (RCA) was normal, free of disease. Vascular Access: Vascular Access Management: Mechanical Compression of the right radial artery access site was performed. Conclusions: * Normal coronary arteries * Elevated left ventricular end diastolic pressure Other Major Procedures: Echo: SUMMARY: ?? 1. The left ventricular chamber size is normal. Basal septal hypertrophy is observed. Global left ventricular systolic function is reduced. GLS-13.1%. The visually estimated left ventricular ejection fraction is 45%. There are left ventricular segmental wall motion abnormalities present, as shown in the diagram below; some or all of these abnormalities could be related to LBBB. 2. Right ventricular chamber size and systolic function are within normal limits. The estimated pulmonary artery systolic pressure is 37 mmHg. 3. There is no hemodynamically significant valve disease. 4. See remainder of report for additional findings. Wall Motion: ?? Segment Name ?Rest ? Base-Anteroseptal ?Normal ? Base-Anterior ?Normal ? Base-Anterolateral ??Normal ? Base-Posterolateral Normal ? Base-Inferior ?Normal ? Base-Inferoseptal ?Normal ? Mid-Anteroseptal ?Hypokinetic ? Mid-Anterior ?Normal ? Mid-Anterolateral ?Normal ? Mid-Posterolateral ??Normal ? Mid-Inferior ?Normal ? Mid-Inferoseptal ?Hypokinetic ? Buchanan-Septal ?Hypokinetic ? Buchanan-Anterior ?Hypokinetic ? Buchanan-Lateral ?Hypokinetic ? Buchanan-Inferior ?Hypokinetic ? Buchanan-Tip ?Hypokinetic ?? 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 She states that she continued to work through the chest pressure as she felt it was more likely to be MSK. Resolved later that day. Chest pain recurrent over the next 24 hours. Finally, she took her 's sublingual nitro x2 which again resolved pain. Pain this morning reportedly worse prompting evaluation at [facility] ER. No associated shortness of breath, diaphoresis, palpitations. Pain substernal and under both breasts. Worse with inspiration. ?? At [facility], EKG showing LBBB that is new compared to EKG from 2018. Troponin reported to be detectable. Transferred for coronary angiography. ?? OSH Course: 123/57, 78 bpm, RR 13, 95% on RA WBC 9.6 H/H 12.4/39 Plts 182 Na 138 K 3.9 Bun/Cr 14/0.82 AST/ALT 33/24 Trop I 0.047 (ULN 0.056) CK 115 ?? CXR: No acute cardiopulmonary disease EKG: SR, LBBB (new compared to EKG from 2018) ?? Meds Administered: ASA given by ambulance; 4 more 81 mg tabs given prior to departure Plavix 300 10:06 am Heparin gtt Morphine 4 mg Zofran Hospital Course: Chest pain Non-ischemic, possibly stress-cardiomyopathy Acute systolic heart failure This is a 74 yo female with a PMH of osteoporosis and trigeminal neuralgia without known HTN, HLD, diabetes and who is a non-smoker who presented with 3 days of stuttering chest pain. EKG showed a LBBB that is new compared to EKG from 2018. Troponin reported to be detectable at the OSH thus transferred for coronary angiography. She was continued on a heparin drip. An echocardiogram was performed showing a depressed EF to 45% with wall motion abnormalities mostly of the apical to mid left ventricular wall segments, suggestive of a stress cardiomyopathy. Given her ongoing chest pain on arrival, new EKG changes and detectable troponin (however at [facility] negative troponins), it was decided to im mediately proceed with coronary angiography. This revealed normal coronary arteries but an elevatedLVEDP of 20 c/w an elevated ProBNP drawn on admission to [facility]. Aspirin and Plavix discontinued. Shewas started on GDMT including low dose carvedilol and lisinopril. She was given Lasix 20 mg IVP x1 which resulted in adequate diuresis. Unfortunately her blood pressures did not tolerate carvedilol, and she was changed to metoprolol and losartan. She was discharged on lasix 20 mg daily, and encouraged to monitor her weight daily. She was ordered for a repeat BMP 7-10 days from discharge to followup on her electrolytes and renal function. ?? A lipid profile was drawn along with an A1C and non-ischemic cardiomyopathy labs. NICM lab panel was essentially unrevealing with a normal TSH, vitamin D, and ferritin level. Lyme, RF and BROCK were all negative. Iron and iron sat were 23 and 12, and should be followed up on in the outpatient setting. Functional and Cognitive Status: Alert and oriented x 3, ambulatory-independent. Important Studies and Lab Data: Labs: Lab Results Component Value Date WBC 14.0 (H) 01/08/2020 HGB 11.2 (L) 01/08/2020 HCT 35.6 (L) 01/08/2020 PLATELET 169 01/08/2020 Recent Labs 01/06/20 1231 INR 1.1 Lab Results Component Value Date NA 133 (L) 01/08/2020 K 4.2 01/08/2020 CL 100 01/08/2020 CO2 22 01/08/2020 BUN 20 (H) 01/08/2020 CREATININE 0.71 01/08/2020 Recent Labs 01/06/20 1231 TSH 1.31 Recent Labs 01/07/20 0348 HA1C 5.3 Recent Labs 01/07/20 0348 01/06/20 1831 01/06/20 1231 CK 55 82 96 TROPONINT <0.01 <0.01 <0.01 Lab Results Component Value Date CHLPL 150 01/07/2020 HDL 56 01/07/2020 CHOLHDL 2.7 01/07/2020 TRIG 71 01/07/2020 LDLCHOL 160 04/02/2018 LDLDIRECT 92 01/07/2020 Pending Studies and Lab Data: None. Discharge Conditions/Prognosis: Stable, without chest pain or shortness of breath at rest or with exertion. Discharge to: Home. Updated Allergies/ADRs: Allergies Allergen Reactions ??? Methadone Hcl headaches ??? Morphine Sulfate Nausea And Vomiting ??? Oxidized Glycerol Triesters headache ??? Oxycodone Hcl severe headaches ??? Codeine Phosphate stomach ache Immunizations Given this Hospitalization: Immunization History Administered Date(s) Administered ??? Influenza PF, Split 08/12/2014, 06/29/2015, 06/19/2016 ??? Influenza PF, Split (High Dose) 07/19/2013, 10/15/2017, 08/08/2019 ??? Influenza Vaccine w/Preservative, Split 10/03/2012 ??? Influenza Vaccine, Whole 08/16/2006, 05/30/2009, 06/29/2010 ??? Influenza, Trivalent, Adjuvanted 06/26/2018 ??? Pneumococcal Conjugate (13 Valent) 01/27/2015 ??? Pneumococcal Polyvalent 23 06/29/2010 ??? Td Vaccine, Absorbed, PF, Adult 09/17/2019 ??? Tdap Vaccine 12/13/2008 ??? Zoster Vaccine, Live 01/13/2012 Discharge Medications: Your Medications New Medications Dose Details furosemide 20 mg Tab Commonly known as: Lasix Take 1 tablet by mouth daily. 20 mg Quantity: 30 tablet Refills: 2 losartan 25 mg Tab Commonly known as: Cozaar Take 1 tablet by mouth nightly. 25 mg Quantity: 30 tablet Refills: 2 metoprolol succinate XL 25 mg Tablet sr Commonly known as: Toprol XL Take 1 tablet by mouth daily. 25 mg Quantity: 30 tablet Refills: 2 Continued medications, unchanged Dose Details CALCIUM LACTATE ORAL Take by mouth. Refills: 0 cholecalciferol (Vitamin D3) 1,000 unit Tab Commonly known as: Vitamin D Take 1 tablet by mouth daily. 1,000 Units Refills: 0 INOSITOL ORAL Take by mouth. Refills: 0 Vitamin B-12 1,000 mcg Tab Generic drug: cyanocobalamin (Vitamin B-12) Refills: 0 Smoking Status at Discharge: Social History Tobacco Use Smoking Status Never Smoker Smokeless Tobacco Never Used Instructions Given to Patient at Discharge: There are no outpatient Patient Instructions on file for this admission. General Instructions Call your doctor if: Chest pain, shortness of breath, pain or swelling in legs occurs. If you have non-emergent questions between now and the time of your follow up appointments: During 8am-5pm Friday through Friday call [phone] to speak with a nurse in the cardiology clinic All other times call [phone] and ask to speak to the relays draftsperson information operator. Return to work: One week Driving: No driving for 48 hours after catheterization. Follow up Appointments: PCP Henrietta Null MD [phone] Your follow up appointment is scheduled for FridayJanuary 17 at 11:20 AM. This will be a telephone appointment. Cardiology Dr. Salas [place], [place] - . You will be contacted with these appointmentdetails. If you have not heard from this office within 1 week, please call the office and [facility] be scheduled 1 month from your discharge date. Labs: 1. Please have labs drawn in 7-10 days from day of discharge. You do not need to fast for this lab work. Future Appointments and Orders Future Appointments and Orders Future Appointments Provider Department Dept Phone 01/18/2020 11:20 AM Henrietta Null MD Internal Medicine at [facility] Arrive at: Home [phone] Please do not come in for this visit. Your provider will call you at the number you provided. Future Orders Complete By Expires Basic Metabolic Panel (non-fasting) [LAB15 Custom] 01/15/2020 01/08/2021 Process Instructions: Scheduling Instructions: Comments: Questions: Discharge References/Attachments Nory Phillip APRN Cardiovascular Medicine 01/08/2020 documented in this encounter Discharge Instructions * Discharge Instructions* Tiffani Phillip APRN - 01/08/2020 12:10 PM EDT Call your doctor if: Chest pain, shortness of breath, pain or swelling in legs occurs. If you have non-emergent questions between now and the time of your follow up appointments: During 8am-5pm Friday through Friday call [phone] to speak with a nurse in the cardiology clinic All other times call [phone] and ask to speak to the relays draftsperson information operator. Return to work: One week Driving: No driving for 48 hours after catheterization. Follow up Appointments: PCP Henrietta Null MD [phone] Your follow up appointment is scheduled for FridayJanuary 17 at 11:20 AM. This will be a telephone appointment. Cardiology Dr. Salas [place], [place] - . You will be contacted with these appointmentdetails. If you have not heard from this office within 1 week, please call the office and request [facility] follow up to be scheduled 1 month from your discharge date. Labs: 1. Please have labs drawn in 7-10 days from day of discharge. You do not need to fast for this lab work. documented in this encounter Medications at Time of Discharge Medication Sig Dispensed Refills Start Date End Date CALCIUM LACTATE ORAL Take 1 tablet by mouth daily. INOSITOL ORAL Take 2 tablets by mouth 2 times daily. cholecalciferol, Vitamin D3, (VITAMIN D) 1,000 unit Tab tabletIndications:Osteo penia Take 1 tablet by mouth daily. 01/10/2012 losartan (Cozaar) 25 mg Tablet Take 1 tablet by mouth nightly. 30 tablet 2 01/08/2020 01/21/2020 metoprolol succinate XL (Toprol XL) 25 mg Tablet Sustained Release 24 hr Take 1 tablet by mouth daily. 30 tablet 2 01/08/2020 03/29/2020 furosemide (Lasix) 20 mg Tablet Take 1 tablet by mouth daily. 30 tablet 2 01/08/2020 02/18/2020 cyanocobalamin (VITAMIN B-12) 1,000 mcg tablet 12/20/201006/01 documented as of this encounter Progress Notes * Bipin Ruiz - 01/08/2020 1:31 PM EDT Patient discharge to home. 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 Patient denies chest pain, nausea, or shortness of breath. RN discussed pain management, discharge instructions, and home medications. Patient received After Visit Summary and RN reviewed document with patient answering any questions that arose. Patient was encouraged to call with questions or concerns. Patient has all belongings, discharge packet, and prescriptions. Bipin Ruiz II, RN * Tiffani Phillip APRN - 01/08/2020 7:55 AM EDT Inpatient Cardiology Progress Note Patient Name: Heike Ramires Service: CHINESE LANGUAGE PROFESSOR / PA Responsible Attending: Ab Ervin MD Reason for continued hospitalization: Evaluation and management of chest pain, mildly elevated troponin at OSH Medication adjustment Discharge today Active Problems: Active Hospital Problems Diagnosis ??? NSTEMI (non-ST elevated myocardial infarction) Resolved Hospital Problems No resolved problems to display. Interval History: Blood pressures improved overnight with SBPs 100-130s.after change of carvedilol to metoprolol. No concerning symptoms of chest pain or shortness of breath. Constipation resolved after multiple BMs. Around midnight T 37.9, no intervention and this morning T 37. WBC elevated at 14. On further discussion with patient, no recent chills or fevers prior to hospitalization. [place] or [place] by her or her spouse who she lives with. No cough, no shortness of breath. Patient also denies any dysuria or other urinary symptoms to indicate UTI. Case discussed with ID JETT consult team, no need for additional testing at this time. Review of Systems: Review of Systems Respiratory: Negative for shortness of breath. Cardiovascular: Negative for chest pain. Musculoskeletal: Right radial site feels well. All other systems reviewed and are negative. Telemetry: HR: 80-90s sinus rhythm, LBBB Meds: Scheduled Meds: ??? metoprolol tartrate 12.5 mg Oral 2 times per day ??? losartan 25 mg Oral Nightly ??? polyethylene glycol (MIRALAX)oral powder 17 g Oral Daily ??? docusate sodium 100 mg Oral BID ??? carBAMazepine 200 mg Oral BID WC Continuous Infusions: PRN Meds:bisacodyL, nitroGLYcerin, acetaminophen Physical Exam: Vital Signs: Last value Range last 48 hrs Temperature Temp: 37.8 ??C (100 ??F) Temp: [36.5 ??C (97.7 ??F)-37.9 ??C (100.2 ??F)] Heart Rate Heart Rate: 82 Heart Rate: [63-86] Blood Pressure BP: 100/53 BP: (74-135)/(30-63) Respiratory Rate Resp: 16 Resp: [7-23] SpO2 SpO2: 92 % SpO2: [90 %-100 %] Patient Vitals for the past 168 hrs: Weight 01/08/20 0540 55.5 kg (122 lb 5.7 oz) 01/07/20 0624 55.9 kg (123 lb 3.8 oz) 01/06/20 1156 56.6 kg (124 lb 12.5 oz) Intake/Output Summary (Last 24 hours) at 01/08/2020 0755 Last data filed at 01/08/2020 0408 Gross per 24 hour Intake 810 ml Output 650 ml Net 160 ml Physical Exam Constitutional: She is oriented to person, place, and time. She appears well- developed and well-nourished. No distress. HENT: Head: Normocephalic and atraumatic. Eyes: Right eye exhibits no discharge. Left eye exhibits no discharge. Neck: Normal range of motion. Neck supple. Cardiovascular: Normal rate, regular rhythm, normal heart sounds and intact distal pulses. Exam reveals no gallop and no friction rub. No murmur heard. Pulmonary/Chest: Effort normal and breath sounds normal. No respiratory distress. She has no wheezes. She has no rales. Abdominal: Soft. Bowel sounds are normal. She exhibits no distension. There is no abdominal tenderness. There is no rebound. Musculoskeletal: Normal range of motion. General: No edema. Comments: Right wrist is clean, dry and intact. No hematoma or ooze. Radial pulse is present. Intact color, sensation and motion. Capillary refill is under 2 seconds. Neurological: She is alert and oriented to person, place, and time. Skin: Skin is warm and dry. She is not diaphoretic. Psychiatric: She has a normal mood and affect. Her behavior is normal. Vitals reviewed. Lab Comments: Recent Labs 01/08/2042401/07/2034701/06/20 1231 WBC 14.0* 7.7 10.3* HGB 11.2* 10.8* 11.8 HCT 35.6* 33.8* 37.4 PLATELET 169 159 165 Recent Labs 01/06/20 1231 INR 1.1 Recent Labs 01/08/2042401/07/2034701/06/20 1231 NA 133* 138 136 K 4.2 4.0 4.0 CL 100 104 104 CO2 22 24 21* BUN 20* 15 10 CREATININE 0.71 1.06 0.61* No results for input(s): AST, ALT, ALKPHOS, BILITOT, BILIDIR in the last 168 hours. Recent Labs 01/08/2042401/07/2034701/06/20 1231 CALCIUM 8.5 8.3* 8.3* Recent Labs 01/07/2034701/06/20 1831 01/06/20 1231 CK 55 82 96 TROPONINT <0.01 <0.01 <0.01 Pertinent Radiographic/Diagnostic Results: ECG: HR 85 sinus rhythm, LBBB Cardiac Cath 01/06/20: Conclusions: * Normal coronary arteries * Elevated left ventricular end diastolic pressure TTE 01/06/20: SUMMARY: 1. The left ventricular chamber size is normal. Basal septal hypertrophy is observed. Global left ventricular systolic function is reduced. GLS-13.1%. The visually estimated left ventricular ejectionfraction is 45%. There are left ventricular segmental wall motion abnormalities present, as shown in the diagram below; some or all of these abnormalities could be related to LBBB. 2. Right ventricular chamber size and systolic function are within normal limits. The estimated pulmonary artery systolic pressure is 37 mmHg. 3. There is no hemodynamically significant valve disease. 4. See remainder of report for additional findings. Wall Motion: Segment Name Rest Base-Anteroseptal Normal Base-Anterior Normal Base-Anterolateral Normal Base-Posterolateral Normal Base-Inferior Normal Base-Inferoseptal Normal Mid-Anteroseptal Hypokinetic Mid-Anterior Normal Mid-Anterolateral Normal Mid-Posterolateral Normal Mid-Inferior Normal Mid-Inferoseptal Hypokinetic Buchanan-Septal Hypokinetic Buchanan-Anterior Hypokinetic Buchanan-Lateral Hypokinetic Buchanan-Inferior Hypokinetic Buchanan-Tip Hypokinetic Assessment: Heike Ramires is a 74 y.o. female with a PMH of osteoporosis and trigeminal neuralgia who presented with 3 days of stuttering chest pain. EKG showing LBBB that is new compared to EKG from 2018. Troponin reported to be detectable at OSH, though negative x [address] [facility]. Cardiac cath with normal coronaries, TTE demonstrated a reduced LVEF of 45% with + WMAs. ProBNP elevated at ~5,000 and LVEDP elevated on cath. She was diuresed with IV lasix following her cath procedure. Unfortunately, she failed coreg dosing with SBP in the 70-80s. Her blood pressures have stabilizedwith trial of metoprolol dosing and initiation of losartan. Screening questions negative for COVID. Her clinical condition has improved with IV diuresis. Givenher borderline temp this morning and elevated WBC, her case was reviewed with ID. No need to test further at this time. Plan for discharge home today. Plan: Chest pain NSTEMI, type II NICM Acute HFrEF Normal coronaries on cath No aspirin or plavix dosing needed Continue metoprolol (did not tolerate carvedilol d/t hypotension) Continue losartan Appears euvolemic on exam, no further diuresis NICM lab sent Hyperlipidemia Patient with TC 150, HDL 56, LDL 92, Trig 71 Moderate statin indicated for 10 year risk reduction, however patient would like to hold off for now (she takes red yeast rice at home) Constipation, resolved S/p Miralax dosing Continue PRN stool softener DVT prophylaxis: early ambulation CODE STATUS: FULL CODE Discussed with MD Tiffani Isaacs APRN Cardiovascular Medicine 01/08/2020 Associated attestation - Ab Ervin MD - 01/08/2020 6:08 PM EDT Cardiology Attending Addendum I shared this visit with Tiffani Phillip APRN and guided the medical decision-making. More than 30 minutes were spent in [id number] contact with patient and with arranging discharge and coordinating follow-up. * Yolie Phillips RN - 01/07/2020 6:34 PM EDT Gloria continued to report abdominal discomfort/cramping and slight nausea throughout the afternoon.After miralax and zofran (see previous note), tap water enema was tried with small amount of stool but Gloria did not feel relief of symptoms. bisacodyl suppository given around 1800. Awaiting results. * Gladys Arizmendi APRN - 01/07/2020 3:14 PM EDT Images from the original note were not included. 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 NSTEMI (non-ST elevated myocardial infarction) Resolved Hospital Problems No resolved problems to display. Interval History: Cardiac cath revealed normal coronary arteries, elevated LVEDP of 20. Received IVlasix 20 mg x 1 post cath. No chest pain or shortness of breath overnight. Reviewed findings of cardiac catheterization. Hypotension with coreg last night, no lisinopril given. Complaint of constipation, nausea this afternoon. Review of Systems: Review of Systems Respiratory: Negative for shortness of breath. Cardiovascular: Negative for chest pain. Musculoskeletal: Right radial site feels well. All other systems reviewed and are negative. Telemetry: HR: 60-100s sinus rhythm, sinus tachycardia, LBBB Meds: Scheduled Meds: ??? atorvastatin 40 mg Oral QPM ??? carvediloL 3.125 mg Oral BID WC ??? lisinopriL 2.5 mg Oral Nightly ??? carBAMazepine 200 mg Oral BID WC Continuous Infusions: ??? heparin Stopped (01/06/20 1330) PRN Meds:heparin (porcine) AND heparin, nitroGLYcerin, acetaminophen Physical Exam: Vital Signs: Last value Range last 48 hrs Temperature Temp: 36.5 ??C (97.7 ??F) Temp: [36.5 ??C (97.7 ??F)-37.6 ??C (99.7 ??F)] Heart Rate Heart Rate: 72 Heart Rate: [71-86] Blood Pressure BP: (!) 82/37(RN is aware) BP: (74-127)/(30-62) Respiratory Rate Resp: 16 Resp: [7-23] SpO2 SpO2: 90 % SpO2: [90 %-100 %] Patient Vitals for the past 168 hrs: Weight 01/06/20 1156 56.6 kg (124 lb 12.5 oz) Intake/Output Summary (Last 24 hours) at 01/07/2020 0554 Last data filed at 01/07/2020 0400 Gross per 24 hour Intake 490 ml Output 2650 ml Net -2160 ml Physical Exam Constitutional: She is oriented to person, place, and time. She appears well- developed and well-nourished. No distress. HENT: Head: Normocephalic and atraumatic. Eyes: Right eye exhibits no discharge. Left eye exhibits no discharge. Neck: Normal range of motion. Neck supple. Cardiovascular: Normal rate, regular rhythm, normal heart sounds and intact distal pulses. Exam reveals no gallop and no friction rub. No murmur heard. Pulmonary/Chest: Effort normal and breath sounds normal. No respiratory distress. She has no wheezes. She has no rales. Abdominal: Soft. Bowel sounds are normal. She exhibits no distension. There is no abdominal tenderness. There is no rebound. Musculoskeletal: Normal range of motion. General: No edema. Comments: Right wrist is clean, dry and intact. No hematoma or ooze. Radial pulse is present. Intact color, sensation and motion. Capillary refill is under 2 seconds. Neurological: She is alert and oriented to person, place, and time. Skin: Skin is warm and dry. She is not diaphoretic. Psychiatric: She has a normal mood and affect. Her behavior is normal. Vitals reviewed. Lab Comments: Recent Labs 01/07/208 01/06/20 1231 WBC 7.7 10.3* HGB 10.8* 11.8 HCT 33.8* 37.4 PLATELET 159 165 Recent Labs 01/06/20 1231 INR 1.1 Recent Labs 01/07/2034701/06/20 1231 NA 138 136 K 4.0 4.0 CL 104 104 CO2 24 21* BUN 15 10 CREATININE 1.06 0.61* No results for input(s): AST, ALT, ALKPHOS, BILITOT, BILIDIR in the last 168 hours. Recent Labs 01/07/208 01/06/20 1231 CALCIUM 8.3* 8.3* Recent Labs 01/07/20 0348 01/06/20 1831 01/06/20 1231 CK 55 82 96 TROPONINT <0.01 <0.01 <0.01 Pertinent Radiographic/Diagnostic Results: ECG: HR 70 sinus rhythm with biphasic T waves noted in anterior leads Cardiac Cath 01/06/20: Conclusions: * Normal coronary arteries * Elevated left ventricular end diastolic pressure TTE 01/06/20: SUMMARY: 1. The left ventricular chamber size is normal. Basal septal hypertrophy is observed. Global left ventricular systolic function is reduced. GLS-13.1%. The visually estimated left ventricular ejectionfraction is 45%. There are left ventricular segmental wall motion abnormalities present, as shown in the diagram below; some or all of these abnormalities could be related to LBBB. 2. Right ventricular chamber size and systolic function are within normal limits. The estimated pulmonary artery systolic pressure is 37 mmHg. 3. There is no hemodynamically significant valve disease. 4. See remainder of report for additional findings. Wall Motion: Segment Name Rest Base-Anteroseptal Normal Base-Anterior Normal Base-Anterolateral Normal Base-Posterolateral Normal Base-Inferior Normal Base-Inferoseptal Normal Mid-Anteroseptal Hypokinetic Mid-Anterior Normal Mid-Anterolateral Normal Mid-Posterolateral Normal Mid-Inferior Normal Mid-Inferoseptal Hypokinetic Buchanan-Septal Hypokinetic Buchanan-Anterior Hypokinetic Buchanan-Lateral Hypokinetic Buchanan-Inferior Hypokinetic Buchanan-Tip Hypokinetic Assessment: Heike Ramires is a 74 y.o. female with a PMH of osteoporosis and trigeminal neuralgia who presented with 3 days of stuttering chest pain. EKG showing LBBB that is new compared to EKG from 2018. Troponin reported to be detectable at OSH, though negative x [address] [facility]. Cardiac cath with normal coronaries, TTE demonstrated a reduced LVEF of 45% with + WMAs. ProBNP elevated at ~5,000 and LVEDP elevated on cath. She was diuresed with IV lasix yesterday following procedure. Failed coreg dosing with SBP in the 70-80s. Trial of metoprolol dosing today with initiation with losartan dosing this evening. Anticipate discharge home tomorrow if medications are tolerated. Plan: Chest pain NSTEMI, type II NICM Acute HFrEF Reassured that coronary arteries looked well yesterday Tried Coreg 3.125 with systolic blood pressure in the 70-80 range, patient asymptomatic but unable to initiate lisinopril last evening Discontinued Coreg today with initiation of metoprolol tartrate Will try to initiate losartan 25 mg tonight No aspirin or plavix dosing needed Hyperlipidemia Patient with TC 150, HDL 56, LDL 92, Trig 71 Moderate statin indicated for 10 year risk reduction, however patient would like to hold off for now (she takes red yeast rice at home) Constipation Miralax given Will add stool softener Anticipate discharge home tomorrow, cardiology follow up at [facility] with Dr. Salas Discussed with MD Gladys Isaacs APRN 01/07/2020 Associated attestation - Ab Ervin MD - 01/07/2020 9:52 PM EDT Cardiology Attending Addendum I shared this visit with Gladys Arizmendi APRN, and guided the medical decision-making. * Amrita Cintron RN - 01/07/2020 9:55 AM EDT Cardiac rehab- Reviewed this patient w/Gladys Arizmendi APRN. Patient did not rule in at [facility]. EF 45%. Not appropriate for outpatient CR referral at this time. * Ary Perez RN - 01/07/2020 7:34 AM EDT CM update: Hospital Day#; 1 Dx: NSTEMI (non-ST elevated myocardial infarction) Per provider - plan for ongoing medical care; today noted to have low BP (lEF 45%). Services: pending PT/OT evaluation - lives in [facility] if services is needed Barriers: none anticipated; Insurance: AARP MANAGED MEDICARE COMPLETE Transport: Family Anticipated discharge date: TBD A member of the Care Management team will continue to monitor progress, follow for continuity of care and assist with transition of care planningOneida Perez RN (Jonas) cellphone: [phone] documented in this encounter H&P Notes * Carley Martinez MD - 01/06/2020 12:13 PM EDT Images from the original note were not included. Cardiology Admission H&P Patient Name: Heike Ramires Date of : 1945 Age: 74 y.o. Hospital Admit Date: 01/06/2020 Inpatient Attending: Carley Martinez MD PCP: Henrietta Null MD Presenting Diagnosis/Chief Complaint: Chest pain; NSTEMI Active Problem List: Active Hospital Problems Diagnosis ??? NSTEMI (non-ST elevated myocardial infarction) Resolved Hospital Problems No resolved problems to display. 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 She states that she continued to work through the chest pressure as she felt it was more likely to be MSK. Resolved later that day. Chest pain recurrent over the next 24 hours. Finally, she took her 's sublingual nitro x2 which again resolved pain. Pain this morning reportedly worse prompting evaluation at [facility] ER. No associated shortness of breath, diaphoresis, palpitations. Pain substernal and under both breasts. Worse with inspiration. At [facility], EKG showing LBBB that is new compared to EKG from 2018. Troponin reported to be detectable. Transferred for coronary angiography. OSH Course: 123/57, 78 bpm, RR 13, 95% on RA WBC 9.6 H/H 12.4/39 Plts 182 Na 138 K 3.9 Bun/Cr 14/0.82 AST/ALT 33/24 Trop I 0.047 (ULN 0.056) CK 115 CXR: No acute cardiopulmonary disease EKG: SR, LBBB (new compared to EKG from 2018) Meds Administered: ASA given by ambulance; 4 more 81 mg tabs given prior to departure Plavix 300 10:06 am Heparin gtt Morphine 4 mg Zofran Past Medical History: Past Medical History: Diagnosis Date ??? Dysplastic nevus ??? Osteoporosis ??? Trigeminal neuralgia Surgical History/Problems: Past Surgical History: Procedure Laterality Date ??? FACIAL NERVE DECOMPRESSION 07/26/2009 Micraovascular decompression for trigeminal neuralgia ??? PRO COLONOSCOPY, REMV LESN, SNARE 03/21/2014 COLONOSCOPY, POLYPECTOMY, REMOVAL LESION BY SNARE performed by Yareli Talley MD at [facility] ??? PRO REMOVAL OF OVARY/TUBE(S) 01/07/2011 ??SALPINGO-OOPHORECTOMY, UNILATERAL OR TERESA performed by JOSSUE PEREZ at [facility] MA[facility] OR Significant Family History: Family History Problem Relation Age [...] file Gets together: Not on file Attends hindu service: Not on file Active member of [...] on file Social History Narrative Lives in [place], with her . 4 children ([facility], [facility], next door). 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 Enjoying cooking, gardening, swimming. No tob No etoh rare caffeine (tea) exercise at work only Father age 88, + cerebral aneurysm, also with AAA Mother age 40 with SLE Colon Cancer - sister Pancreatic Duct cancer? - sister, also with COPD Brother - from trauma, pt relates to etoh Sister - diverticulitis Sister - alzheimer's REVIEW OF SYSTEMS: Review of Systems Respiratory: Positive for chest tightness. Negative for shortness of breath. Cardiovascular: Positive for chest pain. Negative for palpitations. All other systems reviewed and are negative. Medications: Medications Prior to Admission Medication Sig Dispense Refill Last Dose ??? CALCIUM LACTATE ORAL Take by mouth. Taking ??? INOSITOL ORAL Take by mouth. Taking ??? cholecalciferol, Vitamin D3, (VITAMIN D) 1,000 unit Tab tablet Take 1 tablet by mouth daily. Taking ??? cyanocobalamin (VITAMIN B-12) 1,000 mcg tablet Taking Allergies: Allergies Allergen Reactions ??? Methadone Hcl headaches ??? Morphine Sulfate Nausea And Vomiting ??? Oxidized Glycerol Triesters headache ??? Oxycodone Hcl severe headaches ??? Codeine Phosphate stomach ache PHYSICAL EXAM: Last set of vital signs: BP 127/56 (BP Location (NBP): Right arm, Patient Position: Sitting) Pulse 86 Temp 36.9 ??C (98.4 ??F) (Oral) Resp 18 Ht 148.6 cm (4' 10.5) Wt 56.6 kg (124 lb 12.5 oz) SpO2 96% BMI 25.64 kg/m?? Physical Exam Constitutional: Appearance: Normal appearance. HENT: Head: Normocephalic and atraumatic. Neck: Musculoskeletal: Normal range of motion and neck supple. Cardiovascular: Rate and Rhythm: Normal rate and regular rhythm. Comments: ? Friction rub Pulmonary: Effort: Pulmonary effort is normal. Breath sounds: No rales. Abdominal: General: Abdomen is flat. There is no distension. Palpations: Abdomen is soft. Tenderness: There is no abdominal tenderness. Musculoskeletal: Normal range of motion. Right lower leg: No edema. Left lower leg: No edema. Skin: General: Skin is warm and dry. Neurological: Mental Status: She is alert. Psychiatric: Mood and Affect: Mood normal. Behavior: Behavior normal. Diagnostics: I have independently visualized the following studies: ECG: SR, LBBB LABS: Recent Results (from the past 24 hour(s)) Hemogram Result Value Ref Range WBC 10.3 (H) 4.0 - 9.5 x10(3)/mcL RBC 4.03 4.00 - 5.21 x10(6)/mcL Hemoglobin 11.8 11.7 - 15.5 gm/dL Hematocrit 37.4 35.7 - 45.8 % MCV 92.8 82.6 - 94.4 fL MCH 29.3 27.1 - 32.0 pg MCHC 31.6 (L) 31.7 - 35.0 gm/dL Platelets 165 145 - 357 x10(3)/mcL RDWSD 43.2 37.0 - 46.0 fL RDWCV 12.6 11.5 - 14.1 % MPV 10.3 7.6 - 12.9 fL nRBC % Auto 0.0 % nRBC Abs Auto 0.000 0.000 - 0.000 x10(3)/mcL Differential, Automated Result Value Ref Range Neutrophils % 87.1 % Neutr Abs (ANC) 8.97 (H) 1.70 - 6.10 x10(3)/mcL Lymphocytes % 5.1 % Lymphocytes Abs 0.5 (L) 0.9 - 3.2 x10(3)/mcL Monocytes % 6.7 % Monocyte Abs 0.7 0.3 - 0.9 x10(3)/mcL Eosinophils % 0.4 % Eosinophils Abs 0.0 0.0 - 0.4 x10(3)/mcL Basophils % 0.3 % Basophils Abs 0.0 0.0 - 0.1 x10(3)/mcL Immature Gran % 0.40 % Anne Gran Abs 0.04 0.00 - 0.04 x10(3)/mcL ASSESSMENT: This is a 74 yo female with a PMH of osteoporosis and trigeminal neuralgia without known HTN, HLD, diabetes and who is a non-smoker who presented with 3 days of stuttering chest pain. EKGshowing LBBB that is new compared to EKG from 2018. Troponin reported to be detectable. Transferred for coronary angiography. TREATMENT PLAN: #NSTEMI Admit to cardiology Trend troponin Aspirin 324/81mg Plavix 300/75 mg Heparin drip BB - metoprolol tartrate 12.5 mg q 6 hours Statin - atorvastatin 40 mg nightly; am lipids LESLEY - Consider if depressed EF SLNTG prn [place] Coronary angiography FULL CODE This patient was discussed with Carley Martinez MD. Noemi Ross PA-C 01/06/2020 Cardiac cath Pre Procedure Note The indications, expected benefits and potential risks of heart catheterization were reviewed in detail with the patient. The potential for , heart attack, stroke, kidney failure, hemorrhage, allergic reaction, vascular complications and infection were reviewed in detail. The possibility of stenting and other percutaneous intervention with associated risk was reviewed. The possible need for emergent coronary artery bypass surgery was reviewed. After a discussion about the above, and havinganswered all questions posed, the patient was provided with a consent which was reviewed and signed. ASA: 2: Patient with mild systemic disease Mallampati: II: tonsillar pillars are blocked by the tongue Sedation Plan: moderate (conscious sedation) Assessment and Plan: Proceed with cardiac cath today, see progress note from today for further details. JAMIA Valerio 01/06/2020 Pager [phone] Attestation I have seen and evaluated the patient and have discussed with Noemi BLANDON I agree with the assessment and recommendations made. Carley Martinez MD, [facility] Attending documented in this encounter Miscellaneous Notes * Plan of Care - Kimberly Aviles RN - 01/08/2020 6:05 AM EDT Problem: Patient Care Overview Goal: Plan of Care Review Outcome: Ongoing (Interventions Implemented as Appropriate) 01/08/20 0600 Coping/Psychosocial Plan Of Care Reviewed With patient Plan of Care Review Progress progress toward functional goals is gradual OUTCOME EVALUATION NOTE: OUTCOME SUMMARY: Pt with several loose BM's overnight. HS stool softeners held. Inaccurate I&O's as patient removed the measuring hat or emptied the hat herself. Pt reminded to allow staff to measure urine. MD notified of patients persistent temps up to 37.9. Pt denies complaints. MD notified of patient's elevated WBC of 14 this am. PLAN MOVING FORWARD: D/C planning. INDIVIDUALIZED FALL PREVENTION INTERVENTIONS: Patient-specific fall risk factors per assessment: [current deficits]: age, equipment, medications Assistance [level of assistance required for transfers and ambulation]: Stand by x 1 as needed. Supervision [direct monitoring required during toileting and ADLs]: Intermittent. Surveillance [continuous indirect monitoring]: Telemetry, purposeful hourly rounding. Patient-specific fall prevention interventions for sensory deficits provided, if applicable: Call day in reach CPG GOAL OUTCOME EVALUATION: * Plan of Care - Bruce Kowalski RN - 01/07/2020 4:33 PM EDT Problem: Patient Care Overview Goal: Plan of Care Review Outcome: Ongoing (Interventions Implemented as Appropriate) 01/07/20 1458 Coping/Psychosocial Plan Of Care Reviewed With patient Plan of Care Review Progress progress towards functional goals is fair OUTCOME EVALUATION NOTE: OUTCOME SUMMARY: Pt reports H/A in AM, Tylenol given. Pt reports constipation and N/V in afternoon, Mirulax given. Zofran given for nausea. Lost IV access, new IV placed. Pt's Sp02 mid to high 90s on RA Sinus rhythm on tele, HR in 60s PLAN MOVING FORWARD: Monitor on new med changes, D/C planning. INDIVIDUALIZED FALL PREVENTION INTERVENTIONS: Patient-specific fall risk factors per assessment: [current deficits]: General weakness, Unfamiliarenvironment, Tele leads Assistance [level of assistance required for transfers and ambulation]: Independent in room, SB in lin Supervision [direct monitoring required during toileting and ADLs]: Int Surveillance [continuous indirect monitoring]: ECG Patient-specific fall prevention interventions for sensory deficits provided, if applicable: Non-skid socks on, Bed in low position, Upper rails up. CPG GOAL OUTCOME EVALUATION: Ongoing * Plan of Care - Analilia Lazar RN - 01/07/2020 5:37 AM EDT OUTCOME EVALUATION NOTE: OUTCOME SUMMARY: Pt hypotensive throughout shift, SBP ranging 74-85, pt completely asymptomatic, states her BP is usually low. MD aware. Otherwise uneventful shift, continues to c/o chest pressure, but appears comfortable and was able to sleep well, states pain is better this AM. R radial site CDI. SR on tele. PLAN MOVING FORWARD: Monitor, d/c planning INDIVIDUALIZED FALL PREVENTION INTERVENTIONS: Patient-specific fall risk factors per assessment: [current deficits]: Weakness, hypotension, wires, unfamiliar environment Assistance [level of assistance required for transfers and ambulation]: SBA Supervision [direct monitoring required during toileting and ADLs]: Eyes on Surveillance [continuous indirect monitoring]: tele Patient-specific fall prevention interventions for sensory deficits provided, if applicable: [X] N/A CPG GOAL OUTCOME EVALUATION: * Plan of Care - Bruce Kowalski RN - 01/06/2020 6:56 PM EDT Problem: Patient Care Overview Goal: Plan of Care Review Outcome: Ongoing (Interventions Implemented as Appropriate) 01/06/20 4703 Coping/Psychosocial Plan Of Care Reviewed With patient Plan of Care Review Progress progress towards functional goals is fair OUTCOME EVALUATION NOTE: OUTCOME SUMMARY: Pt presented with 9 of 10 chest pain on arrival. 5mg IV metoprolol given, no change in pain. On 650Units/hour of heparin. Went to [facility] at 1330, heparin discontinued while at laboratory technical specialist. 20 of IV Lasix given post-op. Right radial TR band on return with 14 ml of air. TR band in process of removal.Pt reports chest pain of 2-3 on return, increased to 8 of 10 at 1800, tylenol given. Pt SR on tele with SP02 of mid 90s on RA. PLAN MOVING FORWARD: Determine source of chest pain/continue monitoring, possible DC 01/06. INDIVIDUALIZED FALL PREVENTION INTERVENTIONS: Patient-specific fall risk factors per assessment: [current deficits]: Unfamiliar environment, generalized weakness, tele leads Assistance [level of assistance required for transfers and ambulation]: SB Supervision [direct monitoring required during toileting and ADLs]: Int Surveillance [continuous indirect monitoring]: ECG Tele Patient-specific fall prevention interventions for sensory deficits provided, if applicable: Non-skid socks on when up, bed in low position, upper rails up, adequate lighting CPG GOAL OUTCOME EVALUATION: Ongoing * Brief Op Note - Gaurav Corrigan MD - 01/06/2020 2:29 PM EDT Brief Operative Note Patient Name: Heike Ramires : [id number] MR#: [id number] Case Date: 01/06/2020 Surgeon: Surgeon(s) and Role: * Gaurav Corrigan MD - Primary * Silvino Downs MD - Fellow * Paulette Jane MD - Fellow * Samuel Nesbitt MD - Fellow Preoperative diagnosis: NSTEMI, cardiomyopathy Postoperative diagnosis: NSTEMI, cardiomyopathy Procedure(s) (LRB): CARDIAC CATHETERIZATION (N/A) Findings: Right-dominant system. No angiographically significant disease in the left or right coronary arteries. LVEDP ~20 mmHg; no significant gradient across the aortic valve. Complications: None * Initial Assessments - Marsha Pitts RN - 01/06/2020 1:07 PM EDT Office of Care Management Initial Assessment Marsha Pitts RN reviewed record and discussed patient with Care Team. Source of Information: Medical record review and assessment questions answered by Patient's , Gaurav, via phone call. Introduced self/reviewed role; services accepted. Admission order reviewed: # Order [id number] Reason for Hospitalization: NSTEMI (non-ST elevated myocardial) PMH of osteoporosis and trigeminal neuralgia without known HTN, HLD, diabetes - per Linda BLANDON Past Medical History: Diagnosis Date ??? Dysplastic nevus ??? Osteoporosis ??? Trigeminal neuralgia Hospitalizations Within the Past 30 Days: None Assessment: Patient with intermittent CP x3 day who presented to [facility] and sent to after EKG showed LBBB and detectable troponin labs. Patient went to [facility] [employer] [facility] today , waiting results Anticipated Length Of Stay (If known): 2-3 days Current Decision-Making Capacity: Full Capacity Advance Care Planning: Full Code Received No AD document scanned to eDH. AD packet offered to patient Current Coping/Education/Information Needs: Verbalizes understanding of illness and treatment; verbalizes good support system Current Functional Ability: SBA Functional Status Prior to Admission: Independent without assistive device Home Environment: lives with spouse, Gaurav, at [address] [place] [phone] ALEX: 3/ same level living. Gaurav reports no alcohol or tobacco use by patient Social & Family Supports/Community Resources: Extended Emergency Contact Information Primary Emergency Contact: Gaurav Ramires Address: [address] [place] [phone] [facility] Mobile Relation: Spouse Secondary Emergency Contact: [facility] Relation: Child Supportive family per Gaurav, patient's . Other Pertinent/Service Specific Information: n/a Health/Prescription Coverage: Primary Insurance: [employer]ARP MANAGED MEDICARE Payor: AARP MANAGED MEDICARE / Plan: AARP MANAGED MEDICARE COMPLETE / Product Type: *No Product type* / Secondary Insurance: N/A Prescription Coverage: Preferred Pharmacy: [id number] [facility] [id number] [facility] [phone] [facility] [address] [place] [phone] [place] [place] [address] [place] [id number] Other: Primary Care Provider: Henrietta Null MD [phone] Patient/Caregiver Goals of Treatment: to return to previous level of function Potential Needs for Transition of Care: Rehab/SNF: NA Home Health: NA - lives in [facility] if VN is needed DME: NA Dialysis: NA Community Resources: n/a Transportation: Family or Friend Other: n/a Anticipated Barriers to Discharge/Special Considerations: None Plan: Patient will discharge when medically stable for discharge. Needs pending hospital course Patient assessed with no apparent RNCM/SW needs including clinical resource support at home, housing, transportation, insurance, or other concerns identified. Supports in place to achieve a safe post-hospital transition. No identified barriers to accessing necessary care and/or follow-up after discharge A member of the Care Management team will continue to monitor progress, follow for continuity of care and assist with transition of care planning. Marsha Pitts RN CM Pager [phone] documented in this encounter Plan of Treatment Upcoming Encounters Date Type Department Care Team (Late st Contact Info) Description 07/07/2024 11:00 AM EDT Office Visit Cardiology at [address] [place] [phone] Lorena Lawrence MD [facility] [place] [phone] documented as of this encounter Procedures Procedure Name Priority Date/Time Associated Diagnosis Comments EKG 12-LEAD Routine 01/08/2020 6:37 AM EDT Non-ST elevation myocardial infarction (NSTEMI) HC VENIPUNCTURE Routine 01/08/2020 4:25 AM EDT HEMOGRAM Routine 01/08/2020 4:25 AM EDT DIFFERENTIAL, AUTOMATED Routine 01/08/20 20 4:25 AM EDT HC CBC,PLT & AUTO DIFF Routine 0 4:25 AM EDT HC PROBNP Routine 01/08/2020 4:25 AM EDT EKG 12-LEAD Routine 01/07/2020 6:39 AM EDT Non-ST elevation myocardial infarction (NSTEMI) HC IMMUNOGLOBULIN FREE LIGHT CHAINS, SERUM Routine 01/07/2020 3:48 AM EDT HC LYME DISEASE, VINNIE Routine 0 3:48 AM EDT BMP W/FASTING GLUCOSE Routine 01/07/2020 3:48 AM EDT HEMOGRAM Routine 01/07/2020 3:48 AM EDT DIFFERENTIAL, AUTOMATED Routine 01/07/20 20 3:48 AM EDT HC IRON BINDING CAPACITY Routine 01/07/2020 3:48 AM EDT HC VITAMIN D TOTAL-25 HYDROXY Routine 01/07/2020 3:48 AM EDT HC CBC,PLT & AUTO DIFF Routine 0 3:48 AM EDT HC RHEUMATOID FACTOR Routine 01/07/2020 3:48 AM EDT HC ANTINUCLEAR ANTIBODY,SERUM Routine 01/07/2020 3:48 AM EDT HC TROPONIN T STAT 01/07/2020 3:48 AM EDT HC TRIGLYCERIDES Routine 01/07/2020 3:48 AM EDT HC SERUM PROT. ELECTROPHORESIS Routine 01/07/2020 3:48 AM EDT HC LDL CHOLESTEROL, DIRECT Routine 01/07/2020 3:48 AM EDT HC CHOLESTEROL Routine 01/07/2020 3:48 AM EDT HC HEMOGLOBIN A1C Routine 01/07/2020 3:4 8 AM EDT HC FERRITIN, SERUM Routine 01/07/2020 3: 48 AM EDT HC VENIPUNCTURE Routine 01/07/2020 3:48 AM EDT HC VENIPUNCTURE STAT 01/06/2020 6:31 PM EDT HC CREATINE PHOSPHOKINASE, SERUM Routine 01/06/2020 6:31 PM EDT CARDIAC CATHETERIZATION Routine 01/06/20 2:40 PM EDT ECHO COMPLETE Routine 01/06/2020 1:48 PM EDT Non-ST elevation myocardial infarction (NSTEMI) CRP, ACUTE INFLAMMATION STAT 01/06/20 12:31 PM EDT HC UNFRACTIONATED HEPARIN (HEP UFH) STAT 01/06/2020 12:31 PM EDT HEMOGRAM STAT 01/06/2020 12:31 PM EDT DIFFERENTIAL, AUTOMATED STAT 01/06/20 12:31 PM EDT HC PARTIAL THROMBOPLASTIN TIME STAT 01/06/2020 12:31 PM EDT SEDIMENTATION RATE STAT 01/06/2020 12 :31 PM EDT HC PROTHROMBIN TIME STAT 01/06/2020 1 2:31 PM EDT HC CBC,PLT & AUTO DIFF STAT 0 12:31 PM EDT HC TROPONIN T STAT 01/06/2020 12:31 PM EDT TSH STAT 01/06/2020 12:31 PM EDT HC PROBNP STAT 01/06/2020 12:31 PM EDT HC CREATINE PHOSPHOKINASE, SERUM Routine 01/06/2020 12:31 PM EDT HC VENIPUNCTURE STAT 01/06/2020 12:31 PM EDT EKG 12-LEAD STAT 01/06/2020 12:07 PM EDT Non-ST elevation myocardial infarction (NSTEMI) documented in this encounter Results * EKG 12 Lead (01/08/2020 6:37 AM EDT) Ventricular rate 85 BPM MUSE SYSTEM Atrial Rate 85 BPM MUSE SYSTEM P-R Interval 156 ms MUSE SYSTEM QRS Duration 134 ms MUSE SYSTEM Q-T Interval 390 ms MUSE SYSTEM QTC Calculated (Bezet) 464 ms MUSE SYSTEM Calculated P Ligonier 51 degrees MUSE SYSTEM Calculated R Ligonier -25 degrees MUSE SYSTEM Calculated T Ligonier 79 degrees MUSE SYSTEM INTERPRETATION Normal sinus rhythm Left bundle branch block Abnormal ECG When compared with ECG of 07-JAN-2020 06:39, T wave inversion no longer evident in Anterior leads Inverted T waves have replaced nonspecific T wave abnormality in Lateral leads Confirmed by MD Salas Daniel ([id number]) on 01/08/2020 12:46:11 PM MUSE SYSTEM 01/08/2020 6:37 AM EDT 01/08/2020 12:46 PM EDT Carley Martinez MD ECG ORDERABLES MUSE SYSTEM * (ABNORMAL) Differential, Automated (01/08/2020 4:25 AM EDT) Neutrophils % 88.5 % [facility] Neutr Abs (ANC) 12.40(H) 1.70 - 6.10 x10(3)/mc L [facility] Lymphocytes % 4.4 % [facility] Lymphocytes Abs 0.6(L) 0.9 - 3.2 x10(3)/[facility] Monocytes % 6.6 % [facility] Monocyte Abs 0.9 0.3 - 0.9 x10(3)/[facility] Eosinophils % 0.1 % [facility] Eosinophils Abs 0.0 0.0 - 0.4 x10(3)/[facility] Basophils % 0.1 % [facility] Basophils Abs 0.0 0.0 - 0.1 x10(3)/[facility] Immature Gran % 0.30 % [facility] Comment: Immature granulocytes(IG's)percentage and absolute count will include metamyelocytes, myelocytes, and promyelocytes. Blood smears from CBCs yielding IG's will be scanned manually for concordance. If this scan disagrees with the automated IG or if promyelocytes are noted, a manual differential will be performed. Anne Gran Abs 0.04 0.00 - 0.04 x10(3)/[facility] Blood specimen (specimen) 01/08/2020 4:25 AM EDT 01/08/2020 4:40 AM EDT Narrative Resulting Agency Comment Spec In Lab Noemi BLANDON HEMATOLOGY ORDERABLE S [facility] [place] [address] * (ABNORMAL) Hemogram (01/08/2020 4:25 AM EDT) WBC 14.0(H) 4.0 - 9.5 x10(3)/[facility] RBC 3.88(L) 4.00 - 5.21 x10(6)/[facility] Hemoglobin 11.2(L) 11.7 - 15.5 gm/dL [facility] Hematocrit 35.6(L) 35.7 - 45.8 % [facility] MCV 91.8 82.6 - 94.4 fL [facility] MCH 28.9 27.1 - 32.0 pg [facility] MCHC 31.5(L) 31.7 - 35.0 gm/dL [facility] Platelets 169 145 - 357 x10(3)/[facility] RDWSD 42.8 37.0 - 46.0 fL [facility] RDWCV 12.9 11.5 - 14.1 % [facility] MPV 10.6 7.6 - 12.9 fL [facility] nRBC % Auto 0.0 % [facility] nRBC Abs Auto 0.000 0.000 - 0.000 x10(3)/[facility] Blood specimen (specimen) 01/08/2020 4:25 AM EDT 01/08/2020 4:40 AM EDT Narrative Resulting Agency Comment Spec In Lab Neomi BLANDON HEMATOLOGY ORDERABLE S [facility] [place] [address] * (ABNORMAL) BMP w/fasting Glucose (01/08/2020 4:25 AM EDT) Glucose Fasting 133(H) 65 - 99 mg/dL [facility] Comment: ?Fasting* Glucose Interpretive Criteria Normal ?65-99 mg/dL Impaired Fasting glucose ?100-125 mg/dL Consistent with Diabetes Mellitus ? >or= 126 mg/dL *Fasting is defined as no caloric intake for at least 8 hours In the absence of unequivocal hyperglycemia a plasma glucose value of >or= 126 mg/dL should be repeated on a subsequent day. Diagnosis and Classification of Diabetes Mellitus, Position Statement from the [place] [employer]. ??Diabetes Care, Volume 33, Supplement 1, Sep 2009 BUN 20(H) 8 - 18 mg/dL [facility] Creatinine 0.71 0.70 - 1.20 mg/dL [facility] Sodium 133(L) 135 - 145 mmol/L [facility] Potassium 4.2 3.5 - 5.0 mmol/L [facility] Comment: Please note: ??Patients with WBC >100,000 may have falsely elevated Potassium levels. ??For accurate Potassium quantification in these patients send serum separator tube (gold top) for subsequent determinations. ??Contact the Clinical Chemistry Laboratory if there are any questions. Chloride 100 98 - 107 mmol/L [facility] CO2 22 22 - 31 mmol/L [facility] Anion Gap 11 5 - 15 mmol/L [facility] Calcium 8.5 8.5 - 10.5 mg/dL [facility] Estimated GFR 84 >=60 mL/min/1. 73 m?? [facility] Comment: The eGFR was calculated using the CKD-EPI equation. As with all creatinine based estimates of kidney function, eGFR values calculated with the CKD-EPI equation are not accurate in patients with acute kidney failure, extremes of body mass or the acutely ill. [email or web address]nk[facility] eGFR 97 >=60 mL/min/1. 73 m?? [facility] Comment: The eGFR was calculated using the CKD-EPI equation. As with all creatinine based estimates of kidney function, eGFR values calculated with the CKD-EPI equation are not accurate in patients with acute kidney failure, extremes of body mass or the acutely ill. [email or web address] Blood specimen (specimen) 01/08/2020 4:25 AM EDT 01/08/2020 4:40 AM EDT Narrative Resulting Agency Comment Spec In Lab Carley Martinez MD CHEMISTRY ORDERABLES [facility] [place] [place] [address] * (ABNORMAL) pro-Brain Natriuretic Peptide (01/08/2020 4:25 AM EDT) ProBNP 3,427(H) <=125 pg/mL [facility] Blood specimen (specimen) 01/08/2020 4:25 AM EDT 01/08/2020 4:40 AM EDT Narrative Resulting Agency Comment Spec In Lab Gladys Arizmendi MAIL PROCESSING MACHINE OPERATOR CHEMISTRY ORDERAB LES Performing Organization Address City/[facility]/ZIP Co de Phone Number [facility] [place] [place] [address] * EKG 12 Lead (01/07/2020 6:39 AM EDT) Ventricular rate 70 BPM MUSE SYSTEM Atrial Rate 70 BPM MUSE SYSTEM P-R Interval 142 ms MUSE SYSTEM QRS Duration 132 ms MUSE SYSTEM Q-T Interval 466 ms MUSE SYSTEM QTC Calculated (Bezet) 503 ms MUSE SYSTEM Calculated P Ligonier 24 degrees MUSE SYSTEM Calculated R [place]on[place] -19 degrees MUSE SYSTEM Calculated T [place]on[place] 39 degrees MUSE SYSTEM INTERPRETATION Normal sinus rhythm Left bundle branch block Abnormal ECG When compared with ECG of 06-JAN-2020 12:07, No significant change was found Confirmed by MD DEMAR, TREVER ([id number]) on 01/07/2020 7:50:37 PM MUSE SYSTEM 01/07/2020 6:39 AM EDT 01/07/2020 7:50 PM EDT Carley Martinez MD ECG ORDERABLES Performing Organization Address [facility]/ZIP Co de Phone Number MUSE SYSTEM * Differential, Automated (01/07/2020 3:48 AM EDT) Neutrophils % 72.0 % [facility] Neutr Abs (ANC) 5.53 1.70 - 6.10 x10(3)/[facility] Lymphocytes % 14.0 % [facility] Lymphocytes Abs 1.1 0.9 - 3.2 x10(3)/[facility] Monocytes % 10.6 % [facility] Monocyte Abs 0.8 0.3 - 0.9 x10(3)/[facility] Eosinophils % 2.7 % [facility] Eosinophils Abs 0.2 0.0 - 0.4 x10(3)/[facility] Basophils % 0.3 % [facility] Basophils Abs 0.0 0.0 - 0.1 x10(3)/[facility] Immature Gran % 0.40 % [facility] Comment: Immature granulocytes(IG's)percentage and absolute count will include metamyelocytes, myelocytes, and promyelocytes. Blood smears from CBCs yielding IG's will be scanned manually for concordance. If this scan disagrees with the automated IG or if promyelocytes are noted, a manual differential will be performed. Anne Gran Abs 0.03 0.00 - 0.04 x10(3)/[facility] Blood specimen (specimen) 01/07/2020 3:48 AM EDT 01/07/2020 4:06 AM EDT Narrative Resulting Agency Comment Spec In Lab Noemi BLANDON HEMATOLOGY ORDERABLE S [facility] [place] [address] * (ABNORMAL) Hemogram (01/07/2020 3:48 AM EDT) WBC 7.7 4.0 - 9.5 x10(3)/[facility] RBC 3.72(L) 4.00 - 5.21 x10(6)/[facility] Hemoglobin 10.8(L) 11.7 - 15.5 gm/dL [facility] Hematocrit 33.8(L) 35.7 - 45.8 % [facility] MCV 90.9 82.6 - 94.4 fL [facility] MCH 29.0 27.1 - 32.0 pg [facility] MCHC 32.0 31.7 - 35.0 gm/dL [facility] Platelets 159 145 - 357 x10(3)/[facility] RDWSD 42.6 37.0 - 46.0 fL [facility] RDWCV 12.9 11.5 - 14.1 % [facility] MPV 10.5 7.6 - 12.9 fL [facility] nRBC % Auto 0.0 % [facility] nRBC Abs Auto 0.000 0.000 - 0.000 x10(3)/[facility] Blood specimen (specimen) 01/07/2020 3:48 AM EDT 01/07/2020 4:06 AM EDT Narrative Resulting Agency Comment Spec In Lab Noemi BLANDON HEMATOLOGY ORDERABLE S Performing Organization Address City/State/[facility] Co de Phone Number [facility] [place] [place] [address] * (ABNORMAL) BMP w/fasting Glucose (01/07/2020 3:48 AM EDT) Glucose Fasting 110(H) 65 - 99 mg/dL [facility] Comment: ?Fasting* Glucose Interpretive Criteria Normal ?65-99 mg/dL Impaired Fasting glucose ?100-125 mg/dL Consistent with Diabetes Mellitus ? >or= 126 mg/dL *Fasting is defined as no caloric intake for at least 8 hours In the absence of unequivocal hyperglycemia a plasma glucose value of >or= 126 mg/dL should be repeated on a subsequent day. Diagnosis and Classification of Diabetes Mellitus, Position Statement from the [place] [employer]. ??Diabetes Care, Volume 33, Supplement 1, Sep 2009 BUN 15 8 - 18 mg/dL [facility] Creatinine 1.06 0.70 - 1.20 mg/dL [facility] Sodium 138 135 - 145 mmol/L [facility] Potassium 4.0 3.5 - 5.0 mmol/L [facility] Comment: Please note: ??Patients with WBC >100,000 may have falsely elevated Potassium levels. ??For accurate Potassium quantification in these patients send serum separator tube (gold top) for subsequent determinations. ??Contact the Clinical Chemistry Laboratory if there are any questions. Chloride 104 98 - 107 mmol/L [facility] CO2 24 22 - 31 mmol/L [facility] Anion Gap 10 5 - 15 mmol/L [facility] Calcium 8.3(L) 8.5 - 10.5 mg/dL [facility] Estimated GFR 52(L) >=60 mL/min/1. 73 m?? [facility] Comment: The eGFR was calculated using the CKD-EPI equation. As with all creatinine based estimates of kidney function, eGFR values calculated with the CKD-EPI equation are not accurate in patients with acute kidney failure, extremes of body mass or the acutely ill. [email or web address] CITYnk[facility] eGFR 60 >=60 mL/min/1. 73 m?? [facility] Comment: The eGFR was calculated using the CKD-EPI equation. As with all creatinine based estimates of kidney function, eGFR values calculated with the CKD-EPI equation are not accurate in patients with acute kidney failure, extremes of body mass or the acutely ill. [email or web address] CITYnkf Blood specimen (specimen) 01/07/2020 3:48 AM EDT 01/07/2020 4:06 AM EDT Narrative Resulting Agency Comment Spec In Lab Carley Martinez MD CHEMISTRY ORDERABLES [facility] [place] [address] * Lyme IgG & IgM Antibody (01/07/2020 3:48 AM EDT) Lyme Screening Antibody Neg Neg [facility] Blood specimen (specimen) 01/07/2020 3:48 AM EDT 01/07/2020 6:54 AM EDT Narrative Resulting Agency Comment Spec In Lab Carley Martinez MD IMMUNOLOGY ORDERABLE S Performing Organization Address [facility] [[email or web address]] de Phone Number [facility] [place] [address] * Free Light Chains, Serum (01/07/2020 3:48 AM EDT) [place] Free Light Chains 1.77 0.81 - 2.98 mg/dL [facility] Lambda Free Light Chains 1.50 0.86 - 1.99 mg/dL [facility] [place]/Lambda Free Light Chain Ratio 1.1800 0.5000 - 2.4300 [facility] Comment: Please be advised that following a multi-institution study the reference interval for Serum Free Light Chains was updated October 10, 2017. Blood specimen (specimen) 01/07/2020 3:48 AM EDT 01/07/2020 4:06 AM EDT Narrative Resulting Agency Comment Spec In Lab Carley Martinez MD CHEMISTRY ORDERABLES Performing Organization Address [facility] Co de Phone Number [facility] [place] [address] * (ABNORMAL) Protein Electrophoresis, serum (01/07/2020 3:48 AM EDT) Total Prot Elec 5.4(L) 6.1 - 8.0 gm/dL [facility] Albumin Elect 3.39(L) 3.60 - 6.00 gm/dL [facility] Alpha1-Globul in 0.19 0.10 - 0.30 gm/dL [facility] Alpha2-Globul in 0.69 0.40 - 0.90 gm/dL [facility] Beta Globulin 0.58 0.50 - 1.00 gm/dL [facility] Gamma Globulin 0.56 0.50 - 1.30 gm/dL [facility] M1 Band None Detected None Detected [facility] Blood specimen (specimen) 01/07/2020 3:48 AM EDT 01/07/2020 4:06 AM EDT Narrative Resulting Agency Comment Spec In Lab Carley Martinez MD CHEMISTRY ORDERABLES Performing Organization Address [facility] Co de Phone Number [facility] [place] [address] * Rheumatoid factor, quant (01/07/2020 3:48 AM EDT) RF 14 <=14 IU/mL [facility] Blood specimen (specimen) 01/07/2020 3:48 AM EDT 01/07/2020 4:06 AM EDT Narrative Resulting Agency Comment Spec In Lab Carley Martinez MD IMMUNOLOGY ORDERABLE S Performing Organization Address [facility] Co de Phone Number [facility] [place] [address] * BROCK ([facility]/CGP) (01/07/2020 3:48 AM EDT) BROCK Neg Neg [facility] Comment:Anti-nuclear antibod ies were tested using an indirect immunofluorescent assay. Blood specimen (specimen) 01/07/2020 3:48 AM EDT 01/07/2020 7:22 AM EDT Narrative Resulting Agency Comment Spec In Lab Carley Martinez MD IMMUNOLOGY ORDERABLE S Performing Organization Address City/[facility]/ZIP Co de Phone Number [facility] [place] [address] * Vitamin D, 25-Hydroxy (01/07/2020 3:48 AM EDT) 25-OH Vit D Total 50 30 - 100 ng/mL [facility] Blood specimen (specimen) 01/07/2020 3:48 AM EDT 01/07/2020 4:06 AM EDT Narrative Resulting Agency Comment Spec In Lab Carley Martinez MD CHEMISTRY ORDERABLES [facility] [place] [address] * (ABNORMAL) Iron and TIBC (01/07/2020 3:48 AM EDT) Iron 23(L) 30 - 150 mcg/dL [facility] TIBC 190(L) 250 - 450 mcg/dL [facility] Iron Saturation 12(L) 20 - 50 % [facility] Blood specimen (specimen) 01/07/2020 3:48 AM EDT 01/07/2020 4:06 AM EDT Narrative Resulting Agency Comment Spec In Lab Carley Martinez MD CHEMISTRY ORDERABLES Performing Organization Address [facility]/ZIP Co de Phone Number [facility] [place] [address] * Ferritin (01/07/2020 3:48 AM EDT) [facility] Ferritin 131 30 - 400 ng/mL [facility] Comment: Pediatric reference ranges not verified at [facility], interpret with caution. Reference ranges for females greater than 50 years of age approach values for men, i.e., 30-400 ng/mL. Blood specimen (specimen) 01/07/2020 3:48 AM EDT 01/07/2020 4:06 AM EDT Narrative Resulting Agency Comment Spec In Lab Carley Martinez MD CHEMISTRY ORDERABLES Performing Organization Address City/[facility]/ZIP Co de Phone Number [facility] [place] [address] * Triglyceride (01/07/2020 3:48 AM EDT) Triglycerides 71 mg/dL [facility] Comment: Average Risk/Lower Risk: <150 mg/dL Borderline High Risk: 150-199 mg/dL High Risk: 200-499 mg/dL Very High Risk: >wb=994 mg/dL Blood specimen (specimen) 01/07/2020 3:48 AM EDT 01/07/2020 4:06 AM EDT Narrative Resulting Agency Comment Spec In Lab Carley Martinez MD CHEMISTRY ORDERABLES [facility] [place] [address] * HDL/Cholesterol Profile (01/07/2020 3:48 AM EDT) Chol, Total 150 mg/dL [facility] Comment: Lower Risk: <200 mg/dL Average Risk: 200-239 mg/dL Higher Risk: >ad=761 mg/dL HDL 56 mg/dL [facility] Comment: Males: ?? Higher Risk: <40 mg/dL Females: ?? HIgher Risk: <50 mg/dL Chol/HDL Ratio 2.7 ratio [facility] Chol/HDL Interpretation See Note [facility] Comment: Lipid management should be guided by a patient? s ASCVD risk, goals and preferences. ACC/AHA Guidelines recommend high intensity statin if clinical ASCVD or LDL greater than or equal to 190 mg/dL. http://[employer].com/OIP-WCX-Poyxphpnu Measure LDL if Total Cholesterol minus HDL Cholesterol is greater than 220 mg/dL. Adults aged 40-75 with LDL 70-189 mg/dL should have their 10 year ASCVD risk estimated with the ACC/AHA ASCVD risk manager deli http://tools.acc.org/NLXPS-Sfcc-Fiydmqgjb/ Statin should be discussed if risk greater than or equal to 7.5% in non-diabetics. With diabetes, moderate intensity statin is recommended if risk less than 7.5%, high intensity if risk greater than or equal to 7.5%. Annual lipid monitoring on statins is not necessary. Lifestyle modification is a critical component of ASCVD risk reduction. Blood specimen (specimen) 01/07/2020 3:48 AM EDT 01/07/2020 4:06 AM EDT Narrative Resulting Agency Comment Spec In Lab Carley Martinez MD CHEMISTRY ORDERABLES Performing Organization Address City/State/[facility] Co de Phone Number [facility] [place] [address] * LDL Cholesterol, Direct (01/07/2020 3:48 AM EDT) Pathologist [facility] LDL Chol Direct 92 mg/dL [facility] Comment: Lowest Risk: <100 mg/dL Lower Risk: 100-129 mg/dL Borderline High Risk: 130-159 mg/dL High Risk: 160-189 mg/dL Very High Risk: >gz=691 mg/dL Blood specimen (specimen) 01/07/2020 3:48 AM EDT 01/07/2020 4:06 AM EDT Narrative Resulting Agency Comment Spec In Lab Carley Martinez MD CHEMISTRY ORDERABLES Performing Organization Address [facility] [[email or web address]] de Phone Number [facility] [place] [address] * Hemoglobin A1c (01/07/2020 3:48 AM EDT) [facility] Hemoglobin A1C 5.3 4.3 - 5.6 % [facility] Comment: Reference Range: 4.3 - 5.6% 5.7 - 6.4% - Increased Risk of Developing Diabetes Mellitus >= 6.5% - Consistent with diagnosis of Diabetes Mellitus In the absence of hyperglycemia (i.e. plasma glucose > 200 mg/dL) or classic symptoms of hyperglycemia a repeat measurement of HbA1c should be performed on a separate sample to confirm the diagnosis. Diagnosis and Classification of Diabetes Mellitus, Diabetes Care 2013; 36: Suppl. 1, S67-74 Est Avg Gluc See note mg/dL [facility] Comment: Estimated Average Glucose not appropriate for patients over 70 years of age. eAG equivalents for HbA1c percentages: HbA1c(%) ?eAG(mg/dL) 6.0 ?126 6.5 ?140 7.0 ?154 7.5 ?169 8.0 ?183 8.5 ?197 9.0 ?212 9.5 ?226 10.0 ? 240 Limitations: The eAG calculation has not been validated on women, individuals below 18 years old and above 70 years old, and individuals with hemoglobinopathies. Additional resources are available on the ADA website. Migel PORTER, Davie J, Alexey R, et al. ??Translating the A1C assay into estimated average glucose values. ??Diabetes Care 2008:31(8):1535-3025. Blood specimen (specimen) 01/07/2020 3:48 AM EDT 01/07/2020 4:06 AM EDT Narrative Resulting Agency Comment Spec In Lab Carley Martinez MD CHEMISTRY ORDERABLES Performing Organization Address [facility] [[email or web address]] de Phone Number [facility] [place] [address] * CK (01/07/2020 3:48 AM EDT) [facility] CK, Total 55 0 - 160 unit/L [facility] Blood specimen (specimen) 01/07/2020 3:48 AM EDT 01/07/2020 4:06 AM EDT Narrative Resulting Agency Comment Spec In Lab Carley Martinez MD CHEMISTRY ORDERABLES Performing Organization Address [facility] Co de Phone Number [facility] [place] [address] * Troponin (01/07/2020 3:48 AM EDT) [facility] Troponin-T <0.01 0.00 - 0.00 ng/mL [facility] Comment: The 99th percentile for Troponin T is less than 0.01 ng/mL, any detectable cTnT concentration using this assay should be considered elevated. According to the third universal definition of myocardial infarction the following criteria with a clinical presentation consistent with acute myocardial ischemia meets the diagnosis for a myocardial infarction (OH). Detection of a rise and/or fall of cTnT, with at least one value greater than the 99th percentile (> or = 0.01) and with at least one of the following ?? Symptoms of ischemia ?? New or presumed new significant LU-avhvcvq-G wave (ST-T) changes or new left bundle branch block (LBBB) ?? Development of pathologic Q waves in the ECG ?? Imaging evidence of new loss of viable myocardium or new regional wall motion abnormality ?? Identification of an intracoronary thrombus by angiography or autopsy Samples for cTnT testing should be obtained serially upon first assessment and again 3 to 6 hours later. If the clinical suspicion is high and previous samples have been negative an additional sample may be indicated. Reference: Third Watkins Definition of Myocardial Infarction. Journal of the [place] [employer] 2012;60:1581-98 Blood specimen (specimen) 01/07/2020 3:48 AM EDT 01/07/2020 4:06 AM EDT Narrative Resulting Agency Comment Spec In Lab Carley Martinez MD CHEMISTRY ORDERABLES Performing Organization Address [facility] Co de Phone Number [facility] [place] [address] * CK (01/06/2020 6:31 PM EDT) [facility] CK, Total 82 0 - 160 unit/L [facility] Blood specimen (specimen) 01/06/2020 6:31 PM EDT 01/06/2020 6:44 PM EDT Narrative Resulting Agency Comment Spec In Lab Carley Martinez MD CHEMISTRY ORDERABLES Performing Organization Address [facility] Co de Phone Number [facility] [place] [address] * Troponin (01/06/2020 6:31 PM EDT) [facility] Troponin-T <0.01 0.00 - 0.00 ng/mL [facility] Comment: The 99th percentile for Troponin T is less than 0.01 ng/mL, any detectable cTnT concentration using this assay should be considered elevated. According to the third universal definition of myocardial infarction the following criteria with a clinical presentation consistent with acute myocardial ischemia meets the diagnosis for a myocardial infarction (OH). Detection of a rise and/or fall of cTnT, with at least one value greater than the 99th percentile (> or = 0.01) and with at least one of the following ?? Symptoms of ischemia ?? New or presumed new significant VH-osxyqia-G wave (ST-T) changes or new left bundle branch block (LBBB) ?? Development of pathologic Q waves in the ECG ?? Imaging evidence of new loss of viable myocardium or new regional wall motion abnormality ?? Identification of an intracoronary thrombus by angiography or autopsy Samples for cTnT testing should be obtained serially upon first assessment and again 3 to 6 hours later. If the clinical suspicion is high and previous samples have been negative an additional sample may be indicated. Reference: Third Watkins Definition of Myocardial Infarction. Journal of the [place] [employer] 2012;60:1581-98 Blood specimen (specimen) 01/06/2020 6:31 PM EDT 01/06/2020 6:44 PM EDT Narrative Resulting Agency Comment Spec In Lab Carley aMrtinez MD CHEMISTRY ORDERABLES Performing Organization Address City/State/[facility] Co de Phone Number [facility] [place] [address] * CARDIAC CATHETERIZATION (01/06/2020 2:40 PM EDT) Anatomical Region Laterality Modality Other Narrative 01/06/2020 4:09 PM EDT ?[facility] ? Cardiac Catheterization/Intervention Report ? Patient Name: Heike Ramires. ? Procedure Date: 01/06/2020 ? A #: [id number] ? Primary Physician: Young, Gaurav N ? Case #: [id number] ? File Name: [id number] ? Catheterization Order Number: [id number] ? [facility] ? Final Report [place], [place] ? Patient Name: ? Heike M. Ramires ?ID#: ?[id number] ? : ?1945 ? Procedure Date: ? January 06, 2020 ?Case #: ? [id number] ? Room: ? 6 ? Case Physician: ? Gaurav Corrigan M.D. ?Start: ?14:05 ?Fellow: ? Silvino Downs M.D. ? Admission: ??01/06/2020 ?Samuel Nesbitt M.D. ?Paulette Jane M.D. ? Referring Physician: ??Emeterio Paz M.D. ? Procedures: ?* Coronary Angiography ?* Left Heart Catheterization ? History ?Heike Ramires is a 74 year old woman. She has hypertension. The ?patient's smoking status is Never. She has untreated ?hypercholesterolemia. The patient has untreated diabetes. She is also ?status post an acute non-ST elevation myocardial infarction. Prior to the ?initiation of this procedure, the patient was designated as ASA Class ?III. The CSHA clinical frailty scale is 3: Managing Well. ? Diagnostic Tests: ?Electrocardiography: ? EKG was assessed by ECG. EKG was Abnormal. EKG showed new LBBB. ?Medications Prior to Procedure: ? ASA. ? Indications for Diagnostic Cath: ?The priority of the diagnostic procedure was Urgent. The indication for ?the laboratory technical specialist visit is ACS less than or equal to 24 hrs. Chest pain ?symptom assessment was: Typical Angina. ? Technique: ?A 6 SLFr sheath was inserted in the right radial artery utilizing the ?Seldinger technique. The left coronary artery was injected utilizing a ?5Fr JL 3.5 catheter. A 5Fr ESTEVAN RADIAL catheter was used to inject the ?right coronary artery. Left ventricular pressure was performed with a 5Fr ?ESTEVAN RADIAL catheter. 3,000 units of heparin were administered. A total ?of 100cc of Omnipaque were opened, 65cc of Omnipaque were administered ?and 35cc of Omnipaque were wasted. Radiation: Fluoro time was 8.4 ?minutes, dose area product was 17,800 mGYcm2 and air kerma was 203 mGY. ?See the case log for additional details. ?The patient received the following medications prior to and during the ?procedure: ? Unfractionated Heparin and Clopidogrel. ? Hemodynamics: ?Left Heart Pressures ? Resting: ? Syst Diast ? EDP ?a ?v ? m ?Ao 102 ?? 54 ?73 ?LV 100 ? 20 ? Coronary Angiography: ?Dominance: Right ?Left Main ? The left main was normal, free of disease. ?Left Anterior Descending ? The left anterior descending (LAD) was normal, free of disease. ?Left Circumflex ? The left circumflex (LCX) was normal, free of disease. ?Right Coronary Artery ? The right coronary artery (RCA) was normal, free of disease. ? Vascular Access: ?Vascular Access Management: ? Mechanical Compression of the right radial artery access site was ? performed. ? Conclusions: ?* Normal coronary arteries ?* Elevated left ventricular end diastolic pressure ? Complications/Events: ?The patient had no complications during these procedures. ?The attending physician was present for the entire procedure. ?Dr. Gaurav Corrigan M.D. was present during the moderate sedation ?intraservice time as documented by the sedation nurse. ??Case time = 00:24. ?Dr. Gaurav Corrigan M.D. performed the coronary angiography and left heart ?catheterization. ? Gaurav Corrigan M.D. ? Electronically Signed by: Gaurav Corrigan M.D. ? Report Finalized: 01/06/2020 ??16:02 ? Procedure Note Gaurav Corrigan MD - 01/06/2020 [facility] Cardiac Catheterization/Intervention Report Patient Name: Heike Ramires Procedure Date: 01/06/2020 A #: [id number] Primary Physician: Gaurav Corrigan Case #: [id number] File Name: [id number] Catheterization Order Number: [id number] [facility] FinalReport [place], [place] Patient Name: Heike Ramires ID#:[id number] :1945 Procedure Date: January 06, 2020 Case #: [id number] Room: 6 Case Physician: Gaurav Corrigan M.D. Start: 14:05 Fellow: Silvino Downs M.D. Admission:01/06/2020 Timo Poon M.D. Referring Physician: Emeterio Paz M.D. Procedures: * Coronary Angiography * Left Heart Catheterization History Heike Ramires is a 74 year old woman. She has hypertension. The patient's smoking status is Never. She has untreated hypercholesterolemia. The patient has untreated diabetes. She isalso status post an acute non-ST elevation myocardial infarction. Priorto the initiation of this procedure, the patient was designated as ASAClass III. The [facility] clinical frailty scale is 3: Managing Well. Diagnostic Tests: Electrocardiography: EKG was assessed by ECG. EKG was Abnormal. EKG showed new LBBB. Medications Prior to Procedure: ASA. Indications for Diagnostic Cath: The priority of the diagnostic procedure was Urgent. The indicationfor the laboratory technical specialist visit is ACS less than or equal to 24 hrs. Chest pain symptom assessment was: Typical Angina. Technique: A 6 SLFr sheath was inserted in the right radial artery utilizingthe Seldinger technique. The left coronary artery was injected utilizinga 5Fr JL 3.5 catheter. A 5Fr ESTEVAN RADIAL catheter was used to injectthe right coronary artery. Left ventricular pressure was performed witha 5Fr ESTEVAN RADIAL catheter. 3,000 units of heparin were administered. Atotal of 100cc of Omnipaque were opened, 65cc of Omnipaque wereadministered and 35cc of Omnipaque were wasted. Radiation: Fluoro time was 8.4 minutes, dose area product was 17,800 mGYcm2 and air kerma was 203mGY. See the case log for additional details. The patient received the following medications prior to and duringthe procedure: Unfractionated Heparin and Clopidogrel. Hemodynamics: Left Heart Pressures Resting: Syst Diast EDP a v m Ao 102 54 73 LV 100 20 Coronary Angiography: Dominance: Right Left Main The left main was normal, free of disease. Left Anterior Descending The left anterior descending (LAD) was normal, free of disease. Left Circumflex The left circumflex (LCX) was normal, free of disease. Right Coronary Artery The right coronary artery (RCA) was normal, free of disease. Vascular Access: Vascular Access Management: Mechanical Compression of the right radial artery access sitewas performed. Conclusions: * Normal coronary arteries * Elevated left ventricular end diastolic pressure Complications/Events: The patient had no complications during these procedures. The attending physician was present for the entire procedure. Dr. Gaurav Corrigan M.D. was present during the moderate sedation intraservice time as documented by the sedation nurse. Case time =00:24. Dr. Gaurav Corrigan M.D. performed the coronary angiography and leftheart catheterization. Gaurav Corrigan M.D. Electronically Signed by: Gaurav Corrigan M.D. Report Finalized: 01/06/2020 16:02 Carley Martinez MD CARDIAC CATH ORDERAB LES * ECHO COMPLETE (01/06/2020 1:48 PM EDT) EF 45 [employer] SYSTEM Anatomical Region Laterality Modality Other 01/06/2020 Narrative 01/06/2020 2:07 PM EDT Procedure: ?Transthoracic Echocardiogram Patient: ?KIM Sneed ?(Age): 1945(74y) Med Rec#: ? [id number] ?Sex: ?F ? Site Loc: ? [facility] [place] ?Ht / Wt: ??148(cm)/57(kg) Pt. Loc: ?Adult Floor ? BSA: ?1.5 Study Date: ?? 01/06/2020 ?Pt. Type: Inpatient Tape: ? [facility] Reading: Shabbir Velez ([id number]) Manager Laundry: Fco Ortiz RDCS, MARILEE Diagnosis: *Non-ST elevation (NSTEMI) myocardial infarction (I21.4) Indication: ?? NSTEMI Rhythm: ? Bundle Branch Block BP: ? 114/54 HR: ? 82 SUMMARY: 1. The left ventricular chamber size is normal. ??Basal septal hypertrophy is observed. ??Global left ventricular systolic function is reduced. ??GLS-13.1%. ??The visually estimated left ventricular ejection fraction is ??45%. ??There are left ventricular segmental wall motion abnormalities present, as shown in the diagram below; some or all of these abnormalities could be related to LBBB. 2. Right ventricular chamber size and systolic function are within normal limits. ??The estimated pulmonary artery systolic pressure is 37 mmHg. 3. There is no hemodynamically significant valve disease. 4. See remainder of report for additional findings. Findings ? : Study Quality: ? Adequate Left Ventricle: ? The left ventricular chamber size is normal. ?Basal septal hypertrophy is observed. ?There is no evidence of LVOT obstruction. ?No ventricular septal defect is visualized. ?Global left ventricular systolic function is mildly reduced. GLS-13.1%. ?The visually estimated left ventricular ejection fraction is 45%. ?There are left ventricular segmental wall motion abnormalities present, as shown in the diagram below. ?There is a left ventricular septal wall motion abnormality observed, possibly due to the presence of a left bundle branch block. ?Doppler assessment is consistent with normal left sided filling pressure. ?The ??mid anteroseptal, mid inferoseptal, apical septal, apical anterior, apical lateral, and ??apical inferior wall segments are hypokinetic (score 2). ?Overall wallmotion score index is ??1.38 Left Atrium: ? The left atrium is normal in size. 32 ml/m2. Right Ventricle: ? The estimated pulmonary artery systolic pressure is 37 mmHg. ?The estimated right atrial pressure is 3 mmHg. Right Atrium: ? The right atrium appears normal. Aortic Valve: ? The aortic valve is tricuspid. ?The aortic valve leaflets are mildly thickened. ?There is no evidence of aortic valve stenosis. ?Mild (1+/4+) aortic valve regurgitation is present. Mitral Valve: ? The mitral valve appears normal in structure and function. ?There is no evidence of mitral valve leaflet prolapse. ?There is mild (1+/4+) mitral regurgitation present. Tricuspid Valve: ? The tricuspid valve appears normal in structure and function. ?There is mild to moderate (1-2+/4+) tricuspid regurgitation present. Pulmonic Valve: ? The pulmonic valve appears normal in structure and function. Pericardium: ? The pericardium appears normal and there is no evidence of a pericardial effusion. Aorta: ? The aortic root is normal in size. ?The ascending aorta is normal in size. ?There is no evidence of coarctation of the aorta. Pulmonary Artery: ? The main pulmonary artery appears normal. Venous: ? The inferior vena cava appears normal in size. ?There is a greater than 50% respiratory change in the inferior vena cava dimension. Misc: ? There is no hemodynamically significant valve disease. ?See remainder of report for additional findings. ?Two-dimensional echo, spectral Doppler and color Doppler performed. ?Myocardial Strain Imaging Chambers 2D ?Value ?Units (Range) ? IVSd (2D) ? 1 ?cm ? LVPWd (2D) ?1 ?cm ? IVS:LVPW ratio (2D) 1 ?ratio ? RWT (2D) ?0.44 ? ratio ? RWT PW (2D) ? 0.44 ? ratio ? LVIDd (2D) ?4.53 ? cm ? LVIDs (2D) ?2.7 ?cm ? LVIDd (2D) index ?3.02 ? cm/m2 ? LVIDs (2D) index ?1.8 ?cm/m2 ? LV FS (2D) ?40.29 ?% ? EF Teichholz (2D) ?? 71.1 ? % ? Ao root diameter (2D3.11 ? cm (2.1 - 3.6) ? Ascending Ao ?3.24 ? cm (2 - 3.5) ? Volumes/Mass ?Value ?Units (Range) ? LA Area 4 CH ?16 ? cm2 (<21) ? LA ESV BP (A/L) inde32.14 ?ml/m2 ? RA AREA 4CH ? 12 ? cm2 ? LA ESV BP (MOD) inde32 ? ml/m2 ? LV ESV SP 4CH (MOD) 45.06 ?ml ? LV ESV SP 2CH (MOD) 49.81 ?ml ? LV EDV BP ? 100.71 ? ml ? LV ESV BP ? 48.51 ?ml ? LV EDV BP index ? 67.14 ?ml/m2 ? LV ESV BP index ? 32.34 ?ml/m2 ? BP EF (MOD) ? 51.84 ?% ? Global Longiitudinal-13.1 ?% (-30 - -10) ? LV mass (2D) ?154.23 ? g ? LV mass (2D) index ??102.83 ? g/m2 ? Diastolic/Systolic Function ?Value ?Units (Range) ? MV E-wave Vmax ?0.68 ? m/sec ? MV deceleration llvb622.12 ? msec ? MV A-wave Vmax ?0.94 ? m/sec ? MV E:A ratio ?0.72 ? ratio ? LV septal e' Vmax ?? 0.06 ? m/sec ? LV lateral e' Vmax ??0.12 ? m/sec ? LV average e' Vmax ??0.09 ? m/sec ? LV E:e' septal ratio11.28 ?ratio ? LV E:e' lateral rati5.64 ? ratio ? LV average E:e' rati7.52 ? ratio ? Aortic Valve ?Value ?Units (Range) ? AV Vmax ? 1.27 ? m/sec ? AV peak gradient ?6.42 ? mmHg ? LVOT Vmax ? 0.82 ? m/sec ? LVOT peak gradient ??2.69 ? mmHg ? DOI (Vmax) ?0.65 ? ratio ? AR PHT ?515.85 ? msec ? AR peak gradient ?62.22 ?mmHg ? Tricuspid Valve ?Value ?Units (Range) ? TR Vmax ? 2.93 ? m/sec ? TR peak gradient ?34 ? mmHg ? RAP ? 3 ?mmHg ? RVSP ?37 ? mmHg ? Wall Motion: Segment Name ?Rest ? Base-Anteroseptal ?? Normal ? Base-Anterior ? Normal ? Base-Anterolateral ??Normal ? Base-Posterolateral Normal ? Base-Inferior ? Normal ? Base-Inferoseptal ?? Normal ? Mid-Anteroseptal ?Hypokinetic ? Mid-Anterior ?Normal ? Mid-Anterolateral ?? Normal ? Mid-Posterolateral ??Normal ? Mid-Inferior ?Normal ? Mid-Inferoseptal ?Hypokinetic ? Buchanan-Septal ? Hypokinetic ? Buchanan-Anterior ? Hypokinetic ? Buchanan-Lateral ?Hypokinetic ? Buchanan-Inferior ? Hypokinetic ? Buchanan-Tip ?Hypokinetic ? This report has been electronically signed by: Shabbir Velez MD ? 01/06/2020 14:06:24 Images reviewed and interpretation verified [facility] Procedure Note Shabbir Velez MD - 01/06/2020 Procedure: Transthoracic Echocardiogram Patient: KIM nSeed (Age): 1945(74y) Med Rec#: [id number] Sex: F Site Loc: [facility] [place] Ht / Wt: 148(cm)/57(kg) Pt. Loc: Adult Floor BSA: 1.5 Study Date: 01/06/2020 Pt. Type: Inpatient Tape: Referring: SHEELA Reading: Shabbir Velez ([id number]) Manager Laundry: Fco Ortiz [facility] Diagnosis: *Non-ST elevation (NSTEMI) myocardial infarction (I21.4) Indication: NSTEMI Rhythm: Bundle Branch Block BP: 114/54 HR: 82 SUMMARY: 1. The left ventricular chamber size is normal. Basal septal hypertrophy is observed. Global left ventricular systolic function is reduced. GLS-13.1%. The visually estimated left ventricular ejection fraction is 45%. There are left ventricular segmental wall motion abnormalities present, as shown in the diagram below; some or all of these abnormalities could be related to LBBB. 2. Right ventricular chamber size and systolic function are within normal limits. The estimated pulmonary artery systolic pressure is 37 mmHg. 3. There is no hemodynamically significant valve disease. 4. See remainder of report for additional findings. Findings : Study Quality: Adequate Left Ventricle: The left ventricular chamber size is normal. Basal septal hypertrophy is observed. There is no evidence of LVOT obstruction. No ventricular septal defect is visualized. Global left ventricular systolic function is mildly reduced. GLS-13.1%. The visually estimated left ventricular ejection fraction is 45%. There are left ventricular segmental wall motion abnormalities present, as shown in the diagram below. There is a left ventricular septal wall motion abnormality observed, possibly due to the presence of a left bundle branch block. Doppler assessment is consistent with normal left sided filling pressure. The mid anteroseptal, mid inferoseptal, apical septal, apical anterior, apical lateral, and apical inferior wall segments are hypokinetic (score 2). Overall wallmotion score index is 1.38 Left Atrium: The left atrium is normal in size. 32 ml/m2. Right Ventricle: The estimated pulmonary artery systolic pressure is 37 mmHg. The estimated right atrial pressure is 3 mmHg. Right Atrium: The right atrium appears normal. Aortic Valve: The aortic valve is tricuspid. The aortic valve leaflets are mildly thickened. There is no evidence of aortic valve stenosis. Mild (1+/4+) aortic valve regurgitation is present. Mitral Valve: The mitral valve appears normal in structure and function. There is no evidence of mitral valve leaflet prolapse. There is mild (1+/4+) mitral regurgitation present. Tricuspid Valve: The tricuspid valve appears normal in structure and function. There is mild to moderate (1-2+/4+) tricuspid regurgitation present. Pulmonic Valve: The pulmonic valve appears normal in structure and function. Pericardium: The pericardium appears normal and there is no evidence of a pericardial effusion. Aorta: The aortic root is normal in size. The ascending aorta is normal in size. There is no evidence of coarctation of the aorta. Pulmonary Artery: The main pulmonary artery appears normal. Venous: The inferior vena cava appears normal in size. There is a greater than 50% respiratory change in the inferior vena cava dimension. Misc: There is no hemodynamically significant valve disease. See remainder of report for additional findings. Two-dimensional echo, spectral Doppler and color Doppler performed. Myocardial Strain Imaging Chambers 2D Value Units (Range) IVSd (2D) 1 cm LVPWd (2D) 1 cm IVS:LVPW ratio (2D) 1 ratio RWT (2D) 0.44 ratio RWT PW (2D) 0.44 ratio LVIDd (2D) 4.53 cm LVIDs (2D) 2.7 cm LVIDd (2D) index 3.02 cm/m2 LVIDs (2D) index 1.8 cm/m2 LV FS (2D) 40.29 % EF Teichholz (2D) 71.1 % Ao root diameter (2D3.11 cm (2.1 - 3.6) Ascending Ao 3.24 cm (2 - 3.5) Volumes/Mass Value Units (Range) LA Area 4 CH 16 cm2 (<21) LA ESV BP (A/L) inde32.14 ml/m2 RA AREA 4CH 12 cm2 LA ESV BP (MOD) inde32 ml/m2 LV ESV SP 4CH (MOD) 45.06 ml LV ESV SP 2CH (MOD) 49.81 ml LV EDV BP 100.71 ml LV ESV BP 48.51 ml LV EDV BP index 67.14 ml/m2 LV ESV BP index 32.34 ml/m2 BP EF (MOD) 51.84 % Global Longiitudinal-13.1 % (-30 - -10) LV mass (2D) 154.23 g LV mass (2D) index 102.83 g/m2 Diastolic/Systolic Function Value Units (Range) MV E-wave Vmax 0.68 m/sec MV deceleration lbie528.12 msec MV A-wave Vmax 0.94 m/sec MV E:A ratio 0.72 ratio LV septal e' Vmax 0.06 m/sec LV lateral e' Vmax 0.12 m/sec LV average e' Vmax 0.09 m/sec LV E:e' septal ratio11.28 ratio LV E:e' lateral rati5.64 ratio LV average E:e' rati7.52 ratio Aortic Valve Value Units (Range) AV Vmax 1.27 m/sec AV peak gradient 6.42 mmHg LVOT Vmax 0.82 m/sec LVOT peak gradient 2.69 mmHg DOI (Vmax) 0.65 ratio AR PHT 515.85 msec AR peak gradient 62.22 mmHg Tricuspid Valve Value Units (Range) TR Vmax 2.93 m/sec TR peak gradient 34 mmHg RAP 3 mmHg RVSP 37 mmHg Wall Motion: Segment Name Rest Base-Anteroseptal Normal Base-Anterior Normal Base-Anterolateral Normal Base-Posterolateral Normal Base-Inferior Normal Base-Inferoseptal Normal Mid-Anteroseptal Hypokinetic Mid-Anterior Normal Mid-Anterolateral Normal Mid-Posterolateral Normal Mid-Inferior Normal Mid-Inferoseptal Hypokinetic Buchanan-Septal Hypokinetic Buchanan-Anterior Hypokinetic Buchanan-Lateral Hypokinetic Buchanan-Inferior Hypokinetic Buchanan-Tip Hypokinetic This report has been electronically signed by: Shabbir Velez MD 01/06/2020 14:06:24 Images reviewed and interpretation verified [facility] Carley Martinez MD ECHO ORDERABLES * (ABNORMAL) CRP, acute inflammation (01/06/2020 12:31 PM EDT) CRP 33.3(H) <=4.9 mg/L [facility] Blood specimen (specimen) Venous Draw / Unknown 01/06/2020 12:31 PM EDT 01/06/2020 12:40 PM EDT Narrative Resulting Agency Comment Spec In Lab Noemi Ross PA CHEMISTRY ORDERABLES Performing Organization Address [facility] Co de Phone Number [facility] [place] [address] * Sedimentation rate (01/06/2020 12:31 PM EDT) Pathologist [facility] Sed Rate 13 3 - 46 mm/hr [facility] Comment: Effective September 08, 2019 new capillary photometric technology has resulted in a change in reference ranges. It is recommended that each ESR result be reviewed with its own age appropriate reference range. Blood specimen (specimen) Venous Draw / Unknown 01/06/2020 12:31 PM EDT 01/06/2020 12:39 PM EDT Narrative Resulting Agency Comment Spec In Lab Noemi Espinozakasandra [facility]ON HEMATOLOGY ORDERABLE S Performing Organization Address [facility] Co de Phone Number [facility] [place] [address] * TSH (01/06/2020 12:31 PM EDT) [facility] TSH 1.31 0.27 - 4.20 mcIU/mL [facility] Blood specimen (specimen) Venous Draw / Unknown 01/06/2020 12:31 PM EDT 01/06/2020 12:40 PM EDT Narrative Resulting Agency Comment Spec In Lab Noemialayna BLANDON CHEMISTRY ORDERABLES Performing Organization Address City/[facility]/ZIP Co de Phone Number [facility] [place] [address] * (ABNORMAL) Differential, Automated (01/06/2020 12:31 PM EDT) [facility] Neutrophils % 87.1 % [facility] Neutr Abs (ANC) 8.97(H) 1.70 - 6.10 x10(3)/mc L [facility] Lymphocytes % 5.1 % [facility] Lymphocytes Abs 0.5(L) 0.9 - 3.2 x10(3)/mc L [facility] Monocytes % 6.7 % [facility] Monocyte Abs 0.7 0.3 - 0.9 x10(3)/[facility] Eosinophils % 0.4 % [facility] Eosinophils Abs 0.0 0.0 - 0.4 x10(3)/[facility] Basophils % 0.3 % [facility] Basophils Abs 0.0 0.0 - 0.1 x10(3)/[facility] LABOR[facility]ORY Immature Gran % 0.40 % [facility] Comment: Immature granulocytes(IG's)percentage and absolute count will include metamyelocytes, myelocytes, and promyelocytes. Blood smears from CBCs yielding IG's will be scanned manually for concordance. If this scan disagrees with the automated IG or if promyelocytes are noted, a manual differential will be performed. Anne Gran Abs 0.04 0.00 - 0.04 x10(3)/[facility] Blood specimen (specimen) 01/06/2020 12:31 PM EDT 01/06/2020 12:39 PM EDT Narrative Resulting Agency Comment Spec In Lab Noemi BLANDON HEMATOLOGY ORDERABLE S [facility] [place] [address] * (ABNORMAL) Hemogram (01/06/2020 12:31 PM EDT) WBC 10.3(H) 4.0 - 9.5 x10(3)/[facility] RBC 4.03 4.00 - 5.21 x10(6)/[facility] Hemoglobin 11.8 11.7 - 15.5 gm/dL [facility] Hematocrit 37.4 35.7 - 45.8 % [facility] MCV 92.8 82.6 - 94.4 fL [facility] MCH 29.3 27.1 - 32.0 pg [facility] MCHC 31.6(L) 31.7 - 35.0 gm/dL [facility] Platelets 165 145 - 357 x10(3)/[facility] [place] [place] RDWSD 43.2 37.0 - 46.0 [facility] RDWCV 12.6 11.5 - 14.1 % [facility] MPV 10.3 7.6 - 12.9 [facility] LABORATORY nRBC % Auto 0.0 % [facility] nRBC Abs Auto 0.000 0.000 - 0.000 x10(3)/[facility] Blood specimen (specimen) 01/06/2020 12:31 PM EDT 01/06/2020 12:39 PM EDT Narrative Resulting Agency Comment Spec In Lab Noemi BLANDON HEMATOLOGY ORDERABLE S Performing Organization Address City/State/[facility] Co de Phone Number [facility] [place] [address] * Heparin (unfractionated) Level (01/06/2020 12:31 PM EDT) Heparin UFH Level 0.76 IU/mL [facility] Comment: Guidelines for therapeutic unfractionated heparin levels are summarized below. Heparin (Anti-Xa) levels should be determined in a plasma sample that has been drawn 6 hours after a dose change i.e., steady-state has been reached. DRUG ?Dosing Schedule ? Target Peak Steady-State ?Heparin (Anti-Xa) Levels (Units/mL) Unfractionated ?Continuous infusion ?0.3-0.7 Heparin ?0.3-0.6 for some neurology indications Blood specimen (specimen) 01/06/2020 12:31 PM EDT 01/06/2020 12:39 PM EDT Narrative Resulting Agency Comment Spec In Lab Carley Martinez MD HEMATOLOGY ORDERABLE S Performing Organization Address City/[facility]/ZIP Co de Phone Number [facility] [place] [address] * CK (01/06/2020 12:31 PM EDT) CK, Total 96 0 - 160 unit/L [facility] Blood specimen (specimen) 01/06/2020 12:31 PM EDT 01/06/2020 12:39 PM EDT Narrative Resulting Agency Comment Spec In Lab Carley Martinez MD CHEMISTRY ORDERABLES Performing Organization Address [facility] Co de Phone Number [facility] [place] [address] * Troponin (01/06/2020 12:31 PM EDT) Troponin-T <0.01 0.00 - 0.00 ng/mL [facility] Comment: The 99th percentile for Troponin T is less than 0.01 ng/mL, any detectable cTnT concentration using this assay should be considered elevated. According to the third universal definition of myocardial infarction the following criteria with a clinical presentation consistent with acute myocardial ischemia meets the diagnosis for a myocardial infarction (OH). Detection of a rise and/or fall of cTnT, with at least one value greater than the 99th percentile (> or = 0.01) and with at least one of the following ?? Symptoms of ischemia ?? New or presumed new significant TC-wsihozu-L wave (ST-T) changes or new left bundle branch block (LBBB) ?? Development of pathologic Q waves in the ECG ?? Imaging evidence of new loss of viable myocardium or new regional wall motion abnormality ?? Identification of an intracoronary thrombus by angiography or autopsy Samples for cTnT testing should be obtained serially upon first assessment and again 3 to 6 hours later. If the clinical suspicion is high and previous samples have been negative an additional sample may be indicated. Reference: Third Watkins Definition of Myocardial Infarction. Journal of the [place] [employer] 2012;60:1581-98 Blood specimen (specimen) 01/06/2020 12:31 PM EDT 01/06/2020 12:39 PM EDT Narrative Resulting Agency Comment Spec In Lab Carley Martinez MD CHEMISTRY ORDERABLES Performing Organization Address [facility] Co de Phone Number [facility] [place] [address] * (ABNORMAL) APTT (01/06/2020 12:31 PM EDT) PTT 100(H) 25 - 37 sec [facility] Comment: The PTT is NOT appropriate for heparin monitoring. Use the Anti-Xa level for heparin monitoring (HEP UFH) or LMWH monitoring (HEP LMW). A PTT less than 37 seconds generally indicates adequate hemostasis. Blood specimen (specimen) 01/06/2020 12:31 PM EDT 01/06/2020 12:39 PM EDT Narrative Resulting Agency Comment Spec In Lab Carley Martinez MD HEMATOLOGY ORDERABLE S Performing Organization Address [facility] [[email or web address]] de Phone Number [facility] [place] [phone] * Prothrombin Time (01/06/2020 12:31 PM EDT) PT 12.3 9.4 - 12.5 sec [facility] INR 1.1 [facility] Comment: An INR <2.0 indicates adequate procoagulant activity for hemostasis in most patients without underlying bleeding disorders, though the INR may not adequately reflect hemostatic capacity in patients with liver disease and synthetic impairment. The recommended target INR range for therapeutic anticoagulation is 2.0 ? 3.0 for most applications, though lower and higher ranges may be appropriate depending on clinical circumstances. Blood specimen (specimen) 01/06/2020 12:31 PM EDT 01/06/2020 12:39 PM EDT Narrative Resulting Agency Comment Spec In Lab Carley Martinez MD HEMATOLOGY ORDERABLE S [facility] [place] [address] * (ABNORMAL) pro-Brain Natriuretic Peptide (01/06/2020 12:31 PM EDT) Pathologist [facility] ProBNP 4,968(H) <=125 pg/mL [facility] Blood specimen (specimen) 01/06/2020 12:31 PM EDT 01/06/2020 12:39 PM EDT Narrative Resulting Agency Comment Spec In Lab Carley Martinez MD CHEMISTRY ORDERABLES Performing Organization Address [facility]/ZIP Co de Phone Number [facility] [place] [address] * (ABNORMAL) Basic Metabolic Panel (non-fasting) (01/06/2020 12:31 PM EDT) [facility] Glucose Lvl 125 65 - 199 mg/dL [facility] Comment:Diabetes: >=200 mg/d L plus symptoms BUN 10 8 - 18 mg/dL [facility] Creatinine 0.61(L) 0.70 - 1.20 mg/dL [facility] Sodium 136 135 - 145 mmol/L [facility] Potassium 4.0 3.5 - 5.0 mmol/L [facility] Comment: Please note: ??Patients with WBC >100,000 may have falsely elevated Potassium levels. ??For accurate Potassium quantification in these patients send serum separator tube (gold top) for subsequent determinations. ??Contact the Clinical Chemistry Laboratory if there are any questions. Chloride 104 98 - 107 mmol/L [facility] CO2 21(L) 22 - 31 mmol/L [facility] Anion Gap 11 5 - 15 mmol/L [facility] Calcium 8.3(L) 8.5 - 10.5 mg/dL [facility] Estimated GFR 89 >=60 mL/min/1. 73 m?? [facility] Comment: The eGFR was calculated using the CKD-EPI equation. As with all creatinine based estimates of kidney function, eGFR values calculated with the CKD-EPI equation are not accurate in patients with acute kidney failure, extremes of body mass or the acutely ill. [email or web address] eGFR 104 >=60 mL/min/1. 73 m?? [facility] Comment: The eGFR was calculated using the CKD-EPI equation. As with all creatinine based estimates of kidney function, eGFR values calculated with the CKD-EPI equation are not accurate in patients with acute kidney failure, extremes of body mass or the acutely ill. [email or web address] Blood specimen (specimen) 01/06/2020 12:31 PM EDT 01/06/2020 12:39 PM EDT Narrative Resulting Agency Comment Spec In Lab Carley Martinez MD CHEMISTRY ORDERABLES Performing Organization Address City/[facility] Co de Phone Number [facility] [place] [address] * EKG 12 Lead (01/06/2020 12:07 PM EDT) Ventricular rate 81 BPM MUSE SYSTEM Atrial Rate 81 BPM MUSE SYSTEM P-R Interval 160 ms MUSE SYSTEM QRS Duration 140 ms MUSE SYSTEM Q-T Interval 460 ms MUSE SYSTEM QTC Calculated (Bezet) 534 ms MUSE SYSTEM Calculated P [place]on[place] 45 degrees MUSE SYSTEM Calculated R [place] -29 degrees MUSE SYSTEM Calculated T [place] 39 degrees MUSE SYSTEM INTERPRETATION Normal sinus rhythm Left bundle branch block Abnormal ECG When compared with ECG of 12-DEC-2017 14:30, Left bundle branch block is now Present Confirmed by Shabbir Velez MD ([id number]) on 01/06/2020 12:31:01 PM MUSE SYSTEM 01/06/2020 12:0 7 PM EDT 01/06/2020 12:31 PM EDT Carley Martinez MD ECG ORDERABLES MUSE SYSTEM documented in this encounter Visit Diagnoses Diagnosis Non-ST elevation myocardial infarction (NSTEMI) Acute myocardial infarction, subendocardial infarction, episode of care unspecified NSTEMI (non-ST elevated myocardial infarction) Acute myocardial infarction, subendocardial infarction, episode of care unspecified documented in this encounter Admitting Diagnoses Diagnosis NSTEMI (non-ST elevated myocardial infarction) Acute myocardial infarction, subendocardial infarction, episode of care unspecified documented in this encounter Administered Medications Inactive Administered Medications - up to 3 most recent administrations Medication Order MAR Action Action Date Dose Rate Site acetaminophen (Tylenol) tablet 650 mg 650 mg, Oral, EVERY 4 HOURS PRN, Starting on Fri01/06/20 at 1309, Until 01/08/20 at 1538, Pain, Headaches, Maximum dose of acetaminophen is 4000 mg from all sources in 24 hours., Routine Given 01/07/2020 9:33 AM EDT 650 mg Given 01/06/2020 6:32 PM EDT 650 mg atorvastatin (Lipitor) tablet 40 mg 40 mg, Oral, EVERY EVENING, First dose on Fri01/06/20 at 1700, Until Discontinued, Routine Given 01/06/2020 5:04 PM EDT 40 mg bisacodyL (Dulcolax) suppository 10 mg 10 mg, Rectal, DAILY PRN, Starting on Fri01/07/20 at 1750, Until 01/08/20 at 1538, Constipation, Routine Given 01/07/2020 5:58 PM EDT 10 mg carBAMazepine (TEGretol) tablet 200 mg 200 mg, Oral, 2 TIMES DAILY WITH MEALS, First dose on Fri01/06/20 at 1830, Until Discontinued, DO NOT SPLIT, CRUSH OR OPEN, Routine Given 01/08/2020 8:38 AM EDT 200 mg Given 01/07/2020 7:01 PM EDT 200 mg Given 01/07/2020 7:52 AM EDT 200 mg carvediloL (Coreg) tablet 3.125 mg 3.125 mg, Oral, 2 TIMES DAILY WITH MEALS, First dose on Fri01/06/20 at 1700, Until Discontinued, Routine Given 01/06/2020 5:03 PM EDT 3.125 mg docusate sodium (Colace) capsule 100 mg 100 mg, Oral, 2 TIMES DAILY, First dose on Fri01/07/20 at 2100, Until Discontinued, Routine furosemide (LASIX) injection 20 mg 20 mg, Intravenous, ONCE, 1 dose, On Indira 01/06/20 at 1515, Routine Given 01/06/2020 5:00 PM EDT 20 mg heparin 25,000 units in sodium chloride 0.45% 500 mL infusion 0-5,000 Units/hr (0-100 mL/hr), Intravenous, CONTINUOUS, Starting on Indira 01/06/20 at 1230, Until Fri01/07/20 at 1057, BEGIN infusion at 700 units per hr (12 units/kg/hr). MAX INITIAL infusion rate is 1,000 units/hr. Target Heparin UFH Level (anti-Xa activity) = 0.3 - 0.7 IU/mL Start adjustment schedule 6 hours after starting infusion. If Heparin UFH Level is: - less than 0.1 IU/mL, administer PRN bolus and increase rate by 250 units per hr (4 units/kg/hr) - 0.1 - 0.29 IU/mL, administer PRN bolus and increase rate by 100 units per hr (2 units/kg/hr) - 0.3 - 0.7 IU/mL, No Change - 0.71 - 0.85 IU/mL, decrease rate by 50 units per hr (1 units/kg/hr) - 0.86 - 1.05 IU/mL, stop infusion for 30 minutes, then decrease rate by 100 units per hr (2 units/kg/hr) - Greater than 1.05 IU/mL, stop infusion for 60 minutes, then decrease rate by 150 units per hour (3 units/kg/hr) Repeat Heparin UFH Level 6 hours after initiating heparin. Then 6 hours after each dose adjustment. When 2 consecutive Heparin UFH Level within target range of 0.3 - 0.7 IU/mL, change Heparin UFH Level to once every 24 hours with A.M. labs while on heparin. RN to order required Heparin UFH Level - Per Protocol, Routine, Indication: ACS (STEMI vs NSTEMI vs UA) Rate/Dose Change 01/06/2020 1:14 PM EDT 650 Units/hr 13 mL/hr New Bag 01/06/2020 12:55 PM EDT 700 Units/hr 14 mL/hr losartan (Cozaar) tablet 25 mg 25 mg, Oral, NIGHTLY, First dose on Fri01/07/20 at 2100, Until Discontinued, Routine Given 01/07/2020 9:30 PM EDT 25 mg metoprolol (LOPRESSOR) injection 5 mg 5 mg, Intravenous, ONCE, 1 dose, On Indira 01/06/20 at 1300 Given 01/06/2020 12:50 PM EDT 5 mg metoprolol tartrate (Lopressor) tablet 12.5 mg 12.5 mg, Oral, EVERY 12 HOURS SCHEDULED (2 times per day), First dose on Fri01/07/20 at 0930, Until Discontinued, Hold for SBP under 90 or HR under 50., Routine Given 01/08/2020 8:38 AM EDT 12.5 mg Given 01/07/2020 9:30 PM EDT 12.5 mg Given 01/07/2020 9:34 AM EDT 12.5 mg ondansetron (ZOFRAN) injection 4 mg 4 mg, Intravenous, ONCE, 1 dose, On Fri01/07/20 at 1530 Given 01/07/2020 3:53 PM EDT 4 mg polyethylene glycol (Miralax) packet 17 g 17 g, Oral, DAILY, First dose on Fri01/07/20 at 1530, Until Discontinued, Routine Given 01/07/2020 3:06 PM EDT 17 g sodium chloride 0.9% infusion 150 mL/hr, Intravenous, CONTINUOUS, Starting on Indira 01/06/20 at 1500, Until Indira 01/06/20 at 1659, Recovery (Recovery-Hospital Unit) [facility] 01/06/2020 3:00 PM EDT 150 mL/hr 150 mL /hr documented in this encounter Active and Recently Administered Medications Times are shown in EDT. Scheduled Medication Order 01/06/2020 01/07/2020 01/08/2020 atorvastatin (Lipitor) tablet 40 mg (CANCELED) 40 mg, Oral, EVERY EVENING, First dose on Indira 01/06/20 at 1700, Until Discontinued, Routine 1342 (NOV Hold - Provider: Admin Adt - Reason: Transfer to a Procedural area)1504 (NOV Unhold - Provider: Admin Adt)1704 (Given - Provider: Bruce Kowalski RN) carBAMazepine (TEGretol) tablet 200 mg 200 mg, Oral, 2 TIMES DAILY WITH MEALS, First dose on Indira 01/06/20 at 1830, Until Discontinued, DO NOT SPLIT, CRUSH OR OPEN, Routine 2052 (Given - Provider: Analilia Lazar RN) 0752 (Given - Provider: Bruce Kowalski RN)1901 (Given - Provider: Yolie Phillips RN - Comment: given late, nauseous earlier) 0838 (Given - Provider: Bipin Ruiz) carvediloL (Coreg) tablet 3.125 mg (CANCELED) 3.125 mg, Oral, 2 TIMES DAILY WITH MEALS, First dose on Indira 01/06/20 at 1700, Until Discontinued, Routine 1703 (Given - Provider: Bruce Kowalski RN) 0800 (Not Given - Provider: Bruce Kowalski RN - Reason: Per MD Order - Comment: Held per DENNIS Blank) docusate sodium (Colace) capsule 100 mg 100 mg, Oral, 2 TIMES DAILY, First dose on Fri01/07/20 at 2100, Until Discontinued, Routine 2100 (Not Given - Provider: Kimberly Aviles RN - Reason: Patient/family refused) 0900 (Not Given - Provider: Bipin Ruiz - Reason: Contraindicated - Comment: Multiple loose stools overnight) furosemide (LASIX) injection 20 mg (COMPLETED) 20 mg, Intravenous, ONCE, 1 dose, On Indira 01/06/20 at 1515, Routine 1700 (Given - Provider: Bruce Kowalski RN) losartan (Cozaar) tablet 25 mg 25 mg, Oral, NIGHTLY, First dose on Fri01/07/20 at 2100, Until Discontinued, Routine 2130 (Given - Provider: Kimberly Aviles RN) metoprolol (LOPRESSOR) injection 5 mg (COMPLETED) 5 mg, Intravenous, ONCE, 1 dose, On Indira 01/06/20 at 1300 1250 (Given - Provider: Bruce Kowalski RN) metoprolol tartrate (Lopressor) tablet 12.5 mg 12.5 mg, Oral, EVERY 12 HOURS SCHEDULED (2 times per day), First dose on Fri01/07/20 at 0930, Until Discontinued, Hold for SBP under 90 or HR under 50., Routine 0934 (Given - Provider: Bruce Kowalski RN)2130 (Given - Provider: Kimberly Aviles RN) 0838 (Given - Provider: Bipin Ruiz) ondansetron (ZOFRAN) injection 4 mg (COMPLETED) 4 mg, Intravenous, ONCE, 1 dose, On Fri01/07/20 at 1530 1553 (Given - Provider: Bruce Kowalski, TUSHAR) polyethylene glycol (Miralax) packet 17 g 17 g, Oral, DAILY, First dose on Fri01/07/20 at 1530, Until Discontinued, Routine 1506 (Given - Provider: Yolie Phillips RN) 0900 (Not Given - Provider: Bipin Ruiz - Reason: Contraindicated - Comment: multiple loose stools overnight) Continuous Medication Order 01/06/2020 01/07/2020 01/08/2020 heparin 25,000 units in sodium chloride 0.45% 500 mL infusion (CANCELED)(Linked Group 1) 0-5,000 Units/hr (0-100 mL/hr), Intravenous, CONTINUOUS, Starting on Indira 01/06/20 at 1230, Until Fri01/07/20 at 1057, BEGIN infusion at 700 units per hr (12 units/kg/hr). MAX INITIAL infusion rate is 1,000 units/hr. Target Heparin UFH Level (anti-Xa activity) = 0.3 - 0.7 IU/mL Start adjustment schedule 6 hours after starting infusion. If Heparin UFH Level is: - less than 0.1 IU/mL, administer PRN bolus and increase rate by 250 units per hr (4 units/kg/hr) - 0.1 - 0.29 IU/mL, administer PRN bolus and increase rate by 100 units per hr (2 units/kg/hr) - 0.3 - 0.7 IU/mL, No Change - 0.71 - 0.85 IU/mL, decrease rate by 50 units per hr (1 units/kg/hr) - 0.86 - 1.05 IU/mL, stop infusion for 30 minutes, then decrease rate by 100 units per hr (2 units/kg/hr) - Greater than 1.05 IU/mL, stop infusion for 60 minutes, then decrease rate by 150 units per hour (3 units/kg/hr) Repeat Heparin UFH Level 6 hours after initiating heparin. Then 6 hours after each dose adjustment. When 2 consecutive Heparin UFH Level within target range of 0.3 - 0.7 IU/mL, change Heparin UFH Level to once every 24 hours with A.M. labs while on heparin. RN to order required Heparin UFH Level - Per Protocol, Routine, Indication: ACS (STEMI vs NSTEMI vs UA) 1255 (New Bag - Provider: Yolie Phillips RN)1314 (Rate/Dose Change - Provider: Bruce Kowalski, TUSHAR)1330 (Stopped - Provider: Yolie Phillips RN - Comment: stopped by laboratory technical specialist RN)1342 (NOV Hold - Provider: Admin Adt - Reason: Transfer to a Procedural area)1504 (MAR Unhold - Provider: Admin Adt) sodium chloride 0.9% infusion () 150 mL/hr, Intravenous, CONTINUOUS, Starting on Indira 01/06/20 at 1500, Until Indira 01/06/20 at 1659, Recovery (Recovery-Hospital Unit) 1500 (New Bag - Provider: Poonam Mar RN)1610 (Stopped - Provider: Bruce Kowalski, TUSHAR) PRN Medication Order 01/06/2020 01/07/2020 01/08/2020 acetaminophen (Tylenol) tablet 650 mg 650 mg, Oral, EVERY 4 HOURS PRN, Starting on Indira 01/06/20 at 1309, Until 01/08/20 at 1538, Pain, Headaches, Maximum dose of acetaminophen is 4000 mg from all sources in 24 hours., Routine 1342 (NOV Hold - Provider: Admin Adt - Reason: Transfer to a Procedural area)1504 ([facility] Unhold - Provider: Admin Adt)1832 (Given - Provider: Yolie Phillips RN - Comment: chest) 0933 (Given - Provider: Bruce Kowalski, TUSHAR) bisacodyL (Dulcolax) suppository 10 mg 10 mg, Rectal, DAILY PRN, Starting on 01/07/20 at 1750, Until 01/08/20 at 1538, Constipation, Routine 1758 (Given - Provider: Yolie Phillips, TUSHAR) fentaNYL 50 mcg/mL multi-dose injection (CANCELED) ONCE PRN, Starting on Indira 01/06/20 at 1408, Until Indira 01/06/20 at 1504, Intra-Operative (Intra-Procedure), Routine 1408 (Given - Provider: Gaurav Gastelum, TUSHAR) heparin (porcine) 1,000 unit/mL injection (CANCELED) ONCE PRN, Starting on Indira 01/06/20 at 1417, Until Indira 01/06/20 at 1438, Cath (Intra-Procedure), Routine 1417 (Given - Provider: Henry Brito RN) iohexoL (OMNIPAQUE) 350 mg/mL solution (CANCELED) ONCE PRN, Starting on Indira 01/06/20 at 1437, Until Indira 01/06/20 at 1438, Cath (Intra-Procedure), Routine 1437 (Given - Provider: Gaurav Corrigan MD) midazolam (PF) (VERSED) multi-dose injection (CANCELED) ONCE PRN, Starting on Indira 01/06/20 at 1408, Until Indira 01/06/20 at 1444, Cath (Intra-Procedure), Routine 1408 (Given - Provider: Gaurav Gastelum RN) nitroGLYcerin (Nitrostat) disintegrating tablet 0.4 mg 0.4 mg, Sublingual, EVERY 5 MIN PRN, Starting on Indira 01/06/20 at 1309, Until 01/08/20 at 1538, Chest pain, May repeat every 5 minutes for a total of three doses. Notify provider if chest pain not relieved with nitroglycerin. Do not administer nitroglycerin if the patient has received or taken phosphodiesterase (PDE-5) inhibitors such as sildenafil, tadalafil or vardenafil within the last 24 to 72 hours., Routine 1342 (NOV Hold - Provider: Admin Adt - Reason: Transfer to a Procedural area)1504 (MAR Unhold - Provider: Admin Adt) nitroGLYcerin 100 mcg/mL intracoronary dilution (CANCELED) ONCE PRN, Starting on Indira 01/06/20 at 1407, Until Indira 01/06/20 at 1444, Cath (Intra-Procedure), Routine 1407 (Given - Provider: Silvino Downs) verapamiL (ISOPTIN) injection (CANCELED) ONCE PRN, Starting on Indira 01/06/20 at 1407, Until Indira 01/06/20 at 1444, Administer over 2 Minutes, Cath (Intra-Procedure) 1407 (Given - Provider: Silvino Downs) Linked Groups Order Group 1: heparin (porcine) injection 0-4,000 Units (CANCELED) 0-4,000 Units, Intravenous, BOLUS PER HEPARIN PROTOCOL, Starting on Indira 01/06/20 at 1211, Until Fri01/07/20 at 1057, Per Protocol, START ADJUSTMENT SCHEDULE 6 HOURS AFTER STARTING INFUSION Heparin UFH Level between 0.1 - 0.29 IU/mL: Bolus 1,700 units Heparin UFH Level less than 0.1 IU/mL: Bolus 3,400 units, Routine And heparin 25,000 units in sodium chloride 0.45% 500 mL infusion (CANCELED)Jump to med 0-5,000 Units/hr (0-100 mL/hr), Intravenous, CONTINUOUS, Starting on Indira 01/06/20 at 1230, Until Fri01/07/20 at 1057, BEGIN infusion at 700 units per hr (12 units/kg/hr). MAX INITIAL infusion rate is 1,000 units/hr. Target Heparin UFH Level (anti-Xa activity) = 0.3 - 0.7 IU/mL Start adjustment schedule 6 hours after starting infusion. If Heparin UFH Level is: - less than 0.1 IU/mL, administer PRN bolus and increase rate by 250 units per hr (4 units/kg/hr) - 0.1 - 0.29 IU/mL, administer PRN bolus and increase rate by 100 units per hr (2 units/kg/hr) - 0.3 - 0.7 IU/mL, No Change - 0.71 - 0.85 IU/mL, decrease rate by 50 units per hr (1 units/kg/hr) - 0.86 - 1.05 IU/mL, stop infusion for 30 minutes, then decrease rate by 100 units per hr (2 units/kg/hr) - Greater than 1.05 IU/mL, stop infusion for 60 minutes, then decrease rate by 150 units per hour (3 units/kg/hr) Repeat Heparin UFH Level 6 hours after initiating heparin. Then 6 hours after each dose adjustment. When 2 consecutive Heparin UFH Level within target range of 0.3 - 0.7 IU/mL, change Heparin UFH Level to once every 24 hours with A.M. labs while on heparin. RN to order required Heparin UFH Level - Per Protocol, Routine, Indication: ACS (STEMI vs NSTEMI vs UA) documented in this encounter Care Teams Counselor Education Professor Relationship Specialty Start Date End Date Henrietta Null MD [facility] [address] [facility] [address] [place] [address] PCP - General 12/20/10 05/08/20 documented as of this encounter
--- OUTSIDE RECORDS SUMMARY | 2024-04-23 12:15 | XMS_ITS | Encounter Summary ---
Author Organization [facility] Address [facility] [place] [address] Care Team Providers Care [employer] Driver Name Role Phone Henrietta Null MD Primary Care Provider [phone] Encounter Details Date Type Department Care Team (Latest Contact Info) Description 05/07/2019 8:11 AM EDT - 05/07/2019 11:59 PM EDT Hospital Encounter Mammography/[place] [id number] Henrietta Null MD [facility] [place] [address] Encounter for screening mammogram for breast cancer [...] 1 12/15/2017 09/17/2019 fluticasone (FLONASE) 50 mcg/actuation Sledge, Suspension 1 spray by Each Nare route daily. 16 g 11 10/20/2017 09/17/2019 cyanocobalamin (VITAMIN B-12) 1,000 mcg tablet 12/20/2010 06/01/2021 documented as of this encounter Plan of Treatment Upcoming Encounters Date Type Department Care Team (Late st Contact Info) Description 07/07/2024 11:00 AM EDT Office Visit Cardiology at [address] [place] [address] Lorena Lawrence MD [facility] [place] [address] documented as of this encounter Procedures Procedure Name Priority Date/Time Associated Diagnosis Comments MAMMO SCREENING CAD AND RENAN BILATERAL Routine 05/07/2019 8:35 AM EDT Encounter for screening mammogram for breast cancer documented in this encounter Results * Mammo Screening Cad and Renan Bilateral (05/07/2019 8:35 AM EDT) Anatomical Region Laterality Modality Breast Bilateral Mammography Narrative 05/07/2019 8:51 AM EDT BILATERAL MAMMOGRAPHY REASON FOR EXAM: [...] CONCLUSION: No mammographic evidence of malignancy. RECOMMENDATION: Medical organizations agree that annual screening mammography beginning at age 40 saves the most lives. The risks of screening are negligible compared to dying from breast cancer or suffering from more aggressive treatment required when detected at a later stage. No woman is at low risk for breast cancer. Some women, because of their family history, a genetic tendency, or certain other factors, should be screened with breast MRI along with mammograms. (The number of women who fall into this category is very small). The patient and health care provider should discuss the patient history and decide if earlier screening and breast MRI are appropriate. Screening should continue as long as a woman is in good health and is expected to live 10 years or longer. Screening mammography may not detect 10-15% of breast cancers. Women should report any breast changes to a health care provider right away. A result letter has been sent to this patient by [facility]. BIRADS CATEGORY 1: NEGATIVE Henrietta Null MD IMG MAMMO ORDERABLES documented in this encounter Visit Diagnoses Diagnosis Encounter for screening mammogram for breast cancer documented in this encounter Care Teams [employer] Whe[employer] Driver Relationship Specialty Start Date End Date Henrietta Null MD [facility] [place] [address] PCP - General 12/20/10 05/08/20 documented as of this encounter
--- OUTSIDE RECORDS SUMMARY | 2024-04-23 12:15 | XMS_ITS | Encounter Summary ---
Author Organization [facility] [place] [address] Care Team Providers Care Word Processing Supervisor Name Role Phone Henrietta Null MD Primary Care Provider [phone] Reason for Visit * Auth/Cert Specialty Diagnoses / Procedures Referred By Evelio mathis Referred To Contact Diagnoses NSTEMI Procedures EMERGENCY IPI Referral ID Status Reason Start Date Expiration Date Visits Re quested Visits Authorized [id number] 1 1 Encounter Details Date Type Department Care Team (Late st Contact Info) Description 01/06/2020 2:00 PM EDT - 01/06/2020 3:00 PM EDT Surgery S[facility] [place] [phone] Gaurav Corrigan MD [facility] [address] [place] [address] CARDIAC CATHETERIZATION Social History Tobacco Use Types Packs/Day Years [...] Sign Reading Time Taken Comments Blood Pressure 97/47 01/06/2020 2:55 PM EDT Pulse 72 01/06/2020 3:00 PM EDT Temperature 36.9 ??C (98.4 ??F) 01/06/2020 1 2:07 PM EDT Respiratory Rate 21 01/06/2020 3:00 PM EDT Oxygen Saturation 99% 01/06/2020 3:00 PM EDT Inhaled Oxygen Concentration - - Weight 56.6 kg (124 lb 12.5 oz) 020 11:56 AM EDT Height 148.6 cm (4' 10.5) 01/06/2020 1 1:56 AM EDT Body Mass Index 25.14 01/06/2020 11:56 AM EDT documented in this encounter Discharge Summaries * Ab Ervin MD - 01/08/2020 1:38 PM EDT Discharge Summary Patient Name: Heike Ramires Patient Age: 74 y.o. Language: Fijian Race: White Ethnicity: Not nor Admit date: [...] Tierney MD Alyce Vendetti, PA-C Janette Stender, DIRECTOR EHS Discharge Diagnoses (Hospital Problems) and Secondary Diagnoses [...] ? Mid-Inferior ?Normal ? Mid-Inferoseptal ?Hypokinetic ? Flomot-Septal ?Hypokinetic ? Flomot-Anterior ?Hypokinetic ? Flomot-Lateral ?Hypokinetic ? Flomot-Inferior ?Hypokinetic ? Flomot-Tip ?Hypokinetic ?? History of Presentation: HPI per [...] this morning reportedly worse prompting evaluation at [facility] ER. No associated shortness of breath, diaphoresis, palpitations. Pain substernal and under both breasts. Worse with inspiration. ?? At [facility], EKG showing LBBB that is new [...] EKG changes and detectable troponin (however at [facility] negative troponins), it was decided to im mediately proceed with coronary angiography. This revealed normal coronary arteries but an elevatedLVEDP of 20 c/w an elevated ProBNP drawn on admission to 4968. Aspirin and Plavix discontinued. Shewas started on [...] appointments: During 8am-5pm Friday through Friday call [phone] to speak with a nurse in the cardiology clinic All other times call [phone] and ask to speak to the horse trainer lamination machine operator. Return to work: One week Driving: No driving for 48 hours after catheterization. Follow up Appointments: PCP Henrietta Null MD [phone] Your follow up appointment is scheduled for FridayJanuary 17 at 11:20 AM. This will be a telephone appointment. Cardiology [place], [place] - . You will be contacted [...] AM Henrietta Null MD Internal Medicine at [facility] Arrive at: Home [phone] Please do not come in for this [...] appointments: During 8am-5pm Friday through Friday call [phone] to speak with a nurse in the cardiology clinic All other times call [phone] and ask to speak to the horse trainer lamination machine operator. Return to work: One week Driving: No driving for 48 hours after catheterization. Follow up Appointments: PCP Henrietta Null MD [phone] Your follow up appointment is scheduled for FridayJanuary 17 at 11:20 AM. This will be a telephone appointment. Cardiology Dr. [place], [place] - . You will be contacted with these appointmentdetails. If you have not heard from this office within 1 week, please call the office and request [facility] follow up to be scheduled 1 month [...] 1:31 PM EDT Patient discharge to home. wellness program coordinator remains unchanged from previous assessment documentation. Patient [...] Progress Note Patient Name: Heike Ramires Service: GROUNDS MAINTENANCE WORKER / PA Responsible Attending: Ab Ervin MD [...] prior to hospitalization. [place] recent [place] or [place] by her or her spouse [...] Normal Mid-Posterolateral Normal Mid-Inferior Normal Mid-Inferoseptal Hypokinetic Flomot-Septal Hypokinetic Flomot-Anterior Hypokinetic Flomot-Lateral Hypokinetic Flomot-Inferior Hypokinetic Flomot-Tip Hypokinetic Assessment: Heike Ramires is a 74 y.o. female with a PMH of osteoporosis and trigeminal neuralgia who presented with 3 days of stuttering chest pain. EKG showing LBBB that is new compared to EKG from 2018. Troponin reported to be detectable at OSH, though negative x 3 upon transfer to [facility]. 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 Recent Labs 01/07/208 01/06/20 1231 CALCIUM 8.3* 8.3* Recent Labs 01/07/208 01/06/20 1831 01/06/20 1231 CK 55 82 [...] Normal Mid-Posterolateral Normal Mid-Inferior Normal Mid-Inferoseptal Hypokinetic Flomot-Septal Hypokinetic Flomot-Anterior Hypokinetic Flomot-Lateral Hypokinetic Flomot-Inferior Hypokinetic Flomot-Tip Hypokinetic Assessment: Heike Ramires is a 74 y.o. female with a PMH of osteoporosis and trigeminal neuralgia who presented with 3 days of stuttering chest pain. EKG showing LBBB that is new compared to EKG from 2018. Troponin reported to be detectable at OSH, though negative x 3 upon transfer to [facility]. Cardiac cath with normal coronaries, TTE demonstrated [...] discharge home tomorrow, cardiology follow up at [facility] with Dr. Salas Discussed with MD Gladys Isaacs APRN 01/07/2020 Associated attestation - Ab Ervin MD - 01/07/2020 9:52 PM EDT Cardiology Attending Addendum I shared this visit with Gladys Arizmendi APRN, and guided the medical decision-making. * Amrita Cintron RN - 01/07/2020 9:55 AM EDT Cardiac rehab- Reviewed this patient w/Gladys Arizmendi APRN. Patient did not rule in at [facility]. EF 45%. Not appropriate for outpatient CR referral at this time. * Ary Perez RN - 01/07/2020 7:34 AM EDT CM update: Hospital Day#; 1 Dx: NSTEMI (non-ST elevated myocardial infarction) Per provider - plan for ongoing medical care; today noted to have low BP (lEF 45%). Services: pending PT/OT evaluation - lives in [facility] if services is needed Barriers: none anticipated; Insurance: AARP MANAGED MEDICARE COMPLETE Transport: Family Anticipated discharge date: TBD A member of the Care Management team will continue to monitor progress, follow for continuity of care and assist with transition of care planningOneida Perez RN (Jonas) cellphone: [phone] documented in this encounter H&P Notes * [...] this morning reportedly worse prompting evaluation at [facility] ER. No associated shortness of breath, diaphoresis, palpitations. Pain substernal and under both breasts. Worse with inspiration. At [facility], EKG showing LBBB that is new [...] SNARE performed by Yareli Talley MD at [facility] ENDOSCOPY ??? PRO REMOVAL OF OVARY/TUBE(S) 01/07/2011 ??SALPINGO-OOPHORECTOMY, UNILATERAL OR TERESA performed by JOSSUE PEREZ at [facility] MAIN OR Significant Family History: Family History [...] file Gets together: Not on file Attends denominational service: Not on file Active member of [...] on file Social History Narrative Lives in [place], with her . 4 children ([place], [facility], [facility], next door). 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 Enjoying cooking, gardening, swimming. No tob [...] for further details. JAMIA Valerio 01/06/2020 Pager [phone] Attestation I have seen and evaluated the [...] Outcome: Ongoing (Interventions Implemented as Appropriate) 01/06/20 7739 Coping/Psychosocial Plan Of Care Reviewed With patient Plan of Care Review Progress progress towards functional goals is fair OUTCOME EVALUATION NOTE: OUTCOME SUMMARY: Pt presented with 9 of 10 chest pain on arrival. 5mg IV metoprolol given, no change in pain. On 650Units/hour of heparin. Went to labor relations or personnel negotiator at 1330, heparin discontinued while at laboratory chemical assistant. 20 of IV Lasix given post-op. Right [...] Operative Note Patient Name: Heike Ramires : [id number] MR#: [id number] Case Date: 01/06/2020 Surgeon: Surgeon(s) and Role: [...] services accepted. Admission order reviewed: # Order [id number] Reason for Hospitalization: NSTEMI (non-ST elevated myocardial) PMH of osteoporosis and trigeminal neuralgia without known HTN, HLD, diabetes - per Linda BLANDON Past Medical History: Diagnosis Date ??? Dysplastic nevus ??? Osteoporosis ??? Trigeminal neuralgia Hospitalizations Within the Past 30 Days: None Assessment: Patient with intermittent CP x3 day who presented to [facility] and sent to after EKG showed LBBB and detectable troponin labs. Patient went to labor relations or personnel negotiator today , waiting results Anticipated Length Of [...] without assistive device Home Environment: lives with spouseGaurav, at [address] [place] [phone] EVAN: 3/ same level living. Gaurav reports no alcohol or tobacco use by patient Social & Family Supports/Community Resources: Extended Emergency Contact Information Primary Emergency Contact: Gaurav Ramires Address: [address] [place] [phone] [facility] Mobile Relation: Spouse [facility] Relation: Child Supportive family per Gaurav, patient's . Other Pertinent/Service Specific Information: n/a Health/Prescription Coverage: Primary Insurance: AARP MANAGED MEDICARE Payor: AARP MANAGED MEDICARE / Plan: AARP MANAGED MEDICARE COMPLETE / Product Type: *No Product type* / Secondary Insurance: N/A Prescription Coverage: Preferred Pharmacy: [facility] [address] [phone] [facility] [address] [place] [phone] [address] Other: Primary Care Provider: Henrietta Null MD [phone] Patient/Caregiver Goals of Treatment: to return to previous level of function Potential Needs for Transition of Care: Rehab/SNF: NA Home Health: NA - lives in [facility] if VN is needed DME: NA Dialysis: [...] care planning. Marsha Pitts RN CM Pager [phone] documented in this encounter Plan of Treatment Upcoming Encounters Date Type Department Care Team (Late st Contact Info) Description 07/07/2024 11:00 AM EDT Office Visit Cardiology at [address] [place] [address] Lorena Lawrence MD [facility] [place] [address] documented as of this encounter Procedures Procedure Name Priority Date/Time Associated Diagnosis Comments EKG 12-LEAD Routine 01/08/2020 6:37 AM EDT Non-ST elevation myocardial infarction (NSTEMI) HC VENIPUNCTURE Routine 01/08/2020 4:25 AM EDT HEMOGRAM Routine 01/08/2020 4:25 AM EDT DIFFERENTIAL, AUTOMATED Routine 01/08/20 4:25 AM EDT HC CBC,PLT & AUTO [...] infarction (NSTEMI) CRP, ACUTE INFLAMMATION STAT 01/06/20 20 12:31 PM EDT HC UNFRACTIONATED HEPARIN (HEP UFH) STAT 01/06/2020 12:31 PM EDT HEMOGRAM STAT 01/06/2020 12:31 PM EDT DIFFERENTIAL, AUTOMATED STAT 01/06/20 20 12:31 PM EDT HC PARTIAL THROMBOPLASTIN TIME [...] (Bezet) 464 ms MUSE SYSTEM Calculated P Massena 51 degrees MUSE SYSTEM Calculated R Massena -25 degrees MUSE SYSTEM Calculated T Massena 79 degrees MUSE SYSTEM INTERPRETATION Normal sinus rhythm Left bundle branch block Abnormal ECG When compared with ECG of 07-JAN-2020 06:39, T wave inversion no longer evident in Anterior leads Inverted T waves have replaced nonspecific T wave abnormality in Lateral leads Confirmed by MD Salas Daniel ([id number]) on 01/08/2020 12:46:11 PM MUSE SYSTEM 01/08/2020 6:37 AM EDT 01/08/2020 12:46 PM EDT Carley Martinez MD ECG ORDERABLES MUSE SYSTEM * (ABNORMAL) Differential, Automated (01/08/2020 4:25 AM EDT) Neutrophils % 88.5 % [facility] Neutr Abs (ANC) 12.40(H) 1.70 - 6.10 x10(3)/mc L [facility] Lymphocytes % 4.4 % [facility] Lymphocytes Abs 0.6(L) 0.9 - 3.2 x10(3)/mc L [facility] Monocytes % 6.6 % [facility] Monocyte Abs 0.9 0.3 - 0.9 x10(3)/[facility] Eosinophils % 0.1 % [facility] Eosinophils Abs 0.0 0.0 - 0.4 x10(3)/[facility] Basophils % 0.1 % [facility] Basophils Abs 0.0 0.0 - 0.1 x10(3)/[facility] Immature Gran % 0.30 % [facility] Comment: Immature granulocytes(IG's)percentage and absolute count will include metamyelocytes, myelocytes, and promyelocytes. Blood smears from CBCs yielding IG's will be scanned manually for concordance. If this scan disagrees with the automated IG or if promyelocytes are noted, a manual differential will be performed. Anne Gran Abs 0.04 0.00 - 0.04 x10(3)/[facility] Blood specimen (specimen) 01/08/2020 4:25 AM EDT 01/08/2020 4:40 AM EDT Narrative Resulting Agency Comment Spec In Lab Noemi BLANDON HEMATOLOGY ORDERABLE S [facility] [place] [address] * (ABNORMAL) Hemogram (01/08/2020 4:25 AM EDT) WBC 14.0(H) 4.0 - 9.5 x10(3)/[facility] LABORATORY RBC 3.88(L) 4.00 - 5.21 x10(6)/[facility] Hemoglobin 11.2(L) 11.7 - 15.5 gm/dL [facility] Hematocrit 35.6(L) 35.7 - 45.8 % [facility] MCV 91.8 82.6 - 94.[address] [facility] MCH 28.9 27.1 - 32.0 pg [facility] MCHC 31.5(L) 31.7 - 35.0 gm/dL [facility] Platelets 169 145 - 357 x10(3)/[facility]ORATORY RDWSD 42.8 37.0 - 46.[address] [facility] RDWCV 12.9 11.5 - 14.1 % [facility] MPV 10.6 7.6 - 12.[address] [facility] nRBC % Auto 0.0 % [facility] nRBC Abs Auto 0.000 0.000 - 0.000 x10(3)/[facility] Blood specimen (specimen) 01/08/2020 4:25 AM EDT 01/08/2020 4:40 AM EDT Narrative Resulting Agency Comment Spec In Lab Noemi BLANDON HEMATOLOGY ORDERABLE S Performing Organization Address City/State/[facility] Co de Phone Number [facility] [place] [address] * (ABNORMAL) BMP w/fasting Glucose (01/08/2020 4:25 AM EDT) Glucose Fasting 133(H) 65 - 99 mg/dL [facility] Comment: ?Fasting* Glucose Interpretive Criteria Normal [...] of Diabetes Mellitus, Position Statement from the [place] [employer]. ??Diabetes Care, Volume 33, Supplement 1, Sep 2009 BUN 20(H) 8 - 18 mg/dL [facility] Creatinine 0.71 0.70 - 1.20 mg/dL [facility] Sodium 133(L) 135 - 145 mmol/L [facility] Potassium 4.2 3.5 - 5.0 mmol/L [facility] Comment: Please note: ??Patients with WBC >100,000 may have falsely elevated Potassium levels. ??For accurate Potassium quantification in these patients send serum separator tube (gold top) for subsequent determinations. ??Contact the Clinical Chemistry Laboratory if there are any questions. Chloride 100 98 - 107 mmol/L [facility] CO2 22 22 - 31 mmol/L [facility] Anion Gap 11 5 - 15 mmol/L [facility] Calcium 8.5 8.5 - 10.5 mg/dL [facility] Estimated GFR 84 >=60 mL/min/1. 73 m?? [facility] Comment: The eGFR was calculated using the CKD-EPI equation. As with all creatinine based estimates of kidney function, eGFR values calculated with the CKD-EPI equation are not accurate in patients with acute kidney failure, extremes of body mass or the acutely ill. http://Stat/DHMCnkf eGFR 97 >=60 mL/min/1. 73 m?? [facility] Comment: The eGFR was calculated using the CKD-EPI equation. As with all creatinine based estimates of kidney function, eGFR values calculated with the CKD-EPI equation are not accurate in patients with acute kidney failure, extremes of body mass or the acutely ill. http://Stat/DHMCnkf Blood specimen (specimen) 01/08/2020 4:25 AM EDT 01/08/2020 4:40 AM EDT Narrative Resulting Agency Comment Spec In Lab Carley Martinez MD CHEMISTRY ORDERABLES [facility] [place] [address] * (ABNORMAL) pro-Brain Natriuretic Peptide (01/08/2020 4:25 AM EDT) ProBNP 3,427(H) <=125 pg/mL [facility] Blood specimen (specimen) 01/08/2020 4:25 AM EDT 01/08/2020 4:40 AM EDT Narrative Resulting Agency Comment Spec In Lab Gladys Tammy Ugo DIRECTOR EHS CHEMISTRY ORDERAB LES Performing Organization Address City/[facility]/ZIP Co de Phone Number [facility] [place] [address] * EKG 12 Lead (01/07/2020 6:39 AM EDT) Ventricular rate 70 BPM MUSE SYSTEM Atrial Rate 70 BPM MUSE SYSTEM P-R Interval 142 ms MUSE SYSTEM QRS Duration 132 ms MUSE SYSTEM Q-T Interval 466 ms MUSE SYSTEM QTC Calculated (Bezet) 503 ms MUSE SYSTEM Calculated P Massena 24 degrees MUSE SYSTEM Calculated R Massena -19 degrees MUSE SYSTEM Calculated T Massena 39 degrees MUSE SYSTEM INTERPRETATION Normal sinus rhythm Left bundle branch block Abnormal ECG When compared with ECG of 06-JAN-2020 12:07, No significant change was found Confirmed by MD DEMAR, TREVER ([id number]) on 01/07/2020 7:50:37 PM MUSE SYSTEM 01/07/2020 6:39 AM EDT 01/07/2020 7:50 PM EDT Carley Martinez MD ECG ORDERABLES Performing Organization Address City/[facility]/ZIP Co de Phone Number MUSE SYSTEM * Differential, Automated (01/07/2020 3:48 AM EDT) Neutrophils % 72.0 % [facility] Neutr Abs (ANC) 5.53 1.70 - 6.10 x10(3)/[facility] Lymphocytes % 14.0 % [facility] Lymphocytes Abs 1.1 0.9 - 3.2 x10(3)/[facility] Monocytes % 10.6 % [facility] Monocyte Abs 0.8 0.3 - 0.9 x10(3)/[facility] Eosinophils % 2.7 % [facility] Eosinophils Abs 0.2 0.0 - 0.4 x10(3)/[facility]AT[facility] Basophils % 0.3 % [facility] Basophils Abs 0.0 0.0 - 0.1 x10(3)/[facility] LABORATORY Immature Gran % 0.40 % [facility] Comment: Immature granulocytes(IG's)percentage and absolute count will include metamyelocytes, myelocytes, and promyelocytes. Blood smears from CBCs yielding IG's will be scanned manually for concordance. If this scan disagrees with the automated IG or if promyelocytes are noted, a manual differential will be performed. Anne Gran Abs 0.03 0.00 - 0.04 x10(3)/[facility]AT[facility] Blood specimen (specimen) 01/07/2020 3:48 AM EDT 01/07/2020 4:06 AM EDT Narrative Resulting Agency Comment Spec In Lab Noemi BLANDON HEMATOLOGY ORDERABLE S Performing Organization Address City/State/[facility] Co de Phone Number [facility] [place] [address] * (ABNORMAL) Hemogram (01/07/2020 3:48 AM EDT) WBC 7.7 4.0 - 9.5 x10(3)/[facility]AT[facility] RBC 3.72(L) 4.00 - 5.21 x10(6)/[facility] Hemoglobin 10.8(L) 11.7 - 15.5 gm/dL [facility] Hematocrit 33.8(L) 35.7 - 45.8 % [facility] MCV 90.9 82.6 - 94.[address] [facility] MCH 29.0 27.1 - 32.[address] [facility] MCHC 32.0 31.7 - 35.0 gm/dL [facility] Platelets 159 145 - 357 x10(3)/[facility] RDWSD 42.6 37.0 - 46.[address] [facility] RDWCV 12.9 11.5 - 14.1 % [facility] MPV 10.5 7.6 - 12.[address] [facility] nRBC % Auto 0.0 % [facility] nRBC Abs Auto 0.000 0.000 - 0.000 x10(3)/mcL [facility] Blood specimen (specimen) 01/07/2020 3:48 AM EDT 01/07/2020 4:06 AM EDT Narrative Resulting Agency Comment Spec In Lab Noemi BLANDON HEMATOLOGY ORDERABLE S [facility] [place] [address] * (ABNORMAL) BMP w/fasting Glucose (01/07/2020 3:48 AM EDT) Glucose Fasting 110(H) 65 - 99 mg/dL [facility] Comment: ?Fasting* Glucose Interpretive Criteria Normal [...] of Diabetes Mellitus, Position Statement from the [place] [employer]. ??Diabetes Care, Volume 33, Supplement 1, Sep 2009 BUN 15 8 - 18 mg/dL [facility] Creatinine 1.06 0.70 - 1.20 mg/dL [facility] Sodium 138 135 - 145 mmol/L [facility] Potassium 4.0 3.5 - 5.0 mmol/L [facility] Comment: Please note: ??Patients with WBC >100,000 may have falsely elevated Potassium levels. ??For accurate Potassium quantification in these patients send serum separator tube (gold top) for subsequent determinations. ??Contact the Clinical Chemistry Laboratory if there are any questions. Chloride 104 98 - 107 mmol/L [facility] CO2 24 22 - 31 mmol/L [facility] Anion Gap 10 5 - 15 mmol/L [facility] Calcium 8.3(L) 8.5 - 10.5 mg/dL [facility] Estimated GFR 52(L) >=60 mL/min/1. 73 m?? [facility] Comment: The eGFR was calculated using the CKD-EPI equation. As with all creatinine based estimates of kidney function, eGFR values calculated with the CKD-EPI equation are not accurate in patients with acute kidney failure, extremes of body mass or the acutely ill. http://Stat/[facility]nkf eGFR 60 >=60 mL/min/1. 73 m?? [facility] Comment: The eGFR was calculated using the CKD-EPI equation. As with all creatinine based estimates of kidney function, eGFR values calculated with the CKD-EPI equation are not accurate in patients with acute kidney failure, extremes of body mass or the acutely ill. http://Stat/Synergosnkf Blood specimen (specimen) 01/07/2020 3:48 AM EDT 01/07/2020 4:06 AM EDT Narrative Resulting Agency Comment Spec In Lab Carley Martinez MD CHEMISTRY ORDERABLES Performing Organization Address City/[facility] Co de Phone Number [facility] [place] [address] * Lyme IgG & IgM Antibody (01/07/2020 3:48 AM EDT) Lyme Screening Antibody Neg Neg [facility] Blood specimen (specimen) 01/07/2020 3:48 AM EDT 01/07/2020 6:54 AM EDT Narrative Resulting Agency Comment Spec In Lab Carley Martinez MD IMMUNOLOGY ORDERABLE S Performing Organization Address City/[facility]/ZIP Co de Phone Number [facility] [place] [address] * Free Light Chains, Serum (01/07/2020 3:48 AM EDT) [place] Free Light Chains 1.77 0.81 - 2.98 mg/dL [facility] Lambda Free Light Chains 1.50 0.86 - 1.99 mg/dL [facility] [place]/Lambda Free Light Chain Ratio 1.1800 0.5000 - 2.4300 [facility] Comment: Please be advised that following a multi-institution study the reference interval for Serum Free Light Chains was updated October 10, 2017. Blood specimen (specimen) 01/07/2020 3:48 AM EDT 01/07/2020 4:06 AM EDT Narrative Resulting Agency Comment Spec In Lab Carley Martinez MD CHEMISTRY ORDERABLES Performing Organization Address [facility] Co de Phone Number [facility] [place] [address] * (ABNORMAL) Protein Electrophoresis, serum (01/07/2020 3:48 AM EDT) Total Prot Elec 5.4(L) 6.1 - 8.0 gm/dL [facility] Albumin Elect 3.39(L) 3.60 - 6.00 gm/dL [facility] Alpha1-Globul in 0.19 0.10 - 0.30 gm/dL [facility] Alpha2-Globul in 0.69 0.40 - 0.90 gm/dL [facility] Beta Globulin 0.58 0.50 - 1.00 gm/dL [facility] Gamma Globulin 0.56 0.50 - 1.30 gm/dL [facility] M1 Band None Detected None Detected [facility] Blood specimen (specimen) 01/07/2020 3:48 AM EDT 01/07/2020 4:06 AM EDT Narrative Resulting Agency Comment Spec In Lab Carley Martinez MD CHEMISTRY ORDERABLES [facility] [place] [address] * Rheumatoid factor, quant (01/07/2020 3:48 AM EDT) RF 14 <=14 IU/mL [facility] Blood specimen (specimen) 01/07/2020 3:48 AM EDT 01/07/2020 4:06 AM EDT Narrative Resulting Agency Comment Spec In Lab Carley Martinez MD IMMUNOLOGY ORDERABLE S Performing Organization Address [facility]/ZIP Co de Phone Number [facility] [place] [address] * BROCK ([facility]) (01/07/2020 3:48 AM EDT) BROCK Neg Neg [facility] Comment:Anti-nuclear antibod ies were tested using an indirect immunofluorescent assay. Blood specimen (specimen) 01/07/2020 3:48 AM EDT 01/07/2020 7:22 AM EDT Narrative Resulting Agency Comment Spec In Lab Carley Martinez MD IMMUNOLOGY ORDERABLE S Performing Organization Address City/[facility]/ZIP Co de Phone Number [facility] [place] [address] * Vitamin D, 25-Hydroxy (01/07/2020 3:48 AM EDT) 25-OH Vit D Total 50 30 - 100 ng/mL [facility] Blood specimen (specimen) 01/07/2020 3:48 AM EDT 01/07/2020 4:06 AM EDT Narrative Resulting Agency Comment Spec In Lab Carley Martinez MD CHEMISTRY ORDERABLES [facility] [place] [address] * (ABNORMAL) Iron and TIBC (01/07/2020 3:48 AM EDT) Iron 23(L) 30 - 150 mcg/dL [facility] TIBC 190(L) 250 - 450 mcg/dL [facility] Iron Saturation 12(L) 20 - 50 % [facility] Blood specimen (specimen) 01/07/2020 3:48 AM EDT 01/07/2020 4:06 AM EDT Narrative Resulting Agency Comment Spec In Lab Carley Martinez MD CHEMISTRY ORDERABLES Performing Organization Address City/[facility]/ZIP Co de Phone Number [facility] [place] [address] * Ferritin (01/07/2020 3:48 AM EDT) Ferritin 131 30 - 400 ng/mL [facility] Comment: Pediatric reference ranges not verified at [facility], interpret with caution. Reference ranges for females greater than 50 years of age approach values for men, i.e., 30-400 ng/mL. Blood specimen (specimen) 01/07/2020 3:48 AM EDT 01/07/2020 4:06 AM EDT Narrative Resulting Agency Comment Spec In Lab Carley Martinez MD CHEMISTRY ORDERABLES Performing Organization Address City/[facility]/ZIP Co de Phone Number [facility] [place] [address] * Triglyceride (01/07/2020 3:48 AM EDT) Triglycerides 71 mg/dL [facility] Comment: Average Risk/Lower Risk: <150 mg/dL Borderline High Risk: 150-199 mg/dL High Risk: 200-499 mg/dL Very High Risk: >um=246 mg/dL Blood specimen (specimen) 01/07/2020 3:48 AM EDT 01/07/2020 4:06 AM EDT Narrative Resulting Agency Comment Spec In Lab Carley Martinez MD CHEMISTRY ORDERABLES Performing Organization Address City/[facility]/ZIP Co de Phone Number [facility] [place] [address] * HDL/Cholesterol Profile (01/07/2020 3:48 AM EDT) Chol, Total 150 mg/dL [facility] Comment: Lower Risk: <200 mg/dL Average Risk: 200-239 mg/dL Higher Risk: >gr=098 mg/dL HDL 56 mg/dL [facility] Comment: Males: ?? Higher Risk: <40 mg/dL Females: ?? HIgher Risk: <50 mg/dL Chol/HDL Ratio 2.[address] [facility] Chol/HDL Interpretation See Note [facility] Comment: Lipid management should be guided by a patient? s ASCVD risk, goals and preferences. ACC/AHA Guidelines recommend high intensity statin if clinical ASCVD or LDL greater than or equal to 190 mg/dL. http://[employer].com/JAI-ACG-Mqgpqclby Measure LDL if Total Cholesterol minus HDL Cholesterol is greater than 220 mg/dL. Adults aged 40-75 with LDL 70-189 mg/dL should have their 10 year ASCVD risk estimated with the ACC/AHA ASCVD risk pit operator http://tools.acc.org/OZURO-Gujh-Pueyuaeie/ Statin should be discussed if risk greater [...] In Lab Carley Martinez MD CHEMISTRY ORDERABLES [facility] [place] [address] * LDL Cholesterol, Direct (01/07/2020 3:48 AM EDT) LDL Chol Direct 92 mg/dL [facility] Comment: Lowest Risk: <100 mg/dL Lower Risk: 100-129 mg/dL Borderline High Risk: 130-159 mg/dL High Risk: 160-189 mg/dL Very High Risk: >um=653 mg/dL Blood specimen (specimen) 01/07/2020 3:48 AM EDT 01/07/2020 4:06 AM EDT Narrative Resulting Agency Comment Spec In Lab Carley Martinez MD CHEMISTRY ORDERABLES [facility] [place] [address] * Hemoglobin A1c (01/07/2020 3:48 AM EDT) [facility] Hemoglobin A1C 5.3 4.3 - 5.6 % [facility] Comment: Reference Range: 4.3 - 5.6% [...] Mellitus, Diabetes Care 2013; 36: Suppl. 1, F67-52 Est Avg Gluc See note mg/dL [facility] Comment: Estimated Average Glucose not appropriate [...] into estimated average glucose values. ??Diabetes Care 2008:31(8):7879-1150. Blood specimen (specimen) 01/07/2020 3:48 AM EDT 01/07/2020 4:06 AM EDT Narrative Resulting Agency Comment Spec In Lab Carley Martinez MD CHEMISTRY ORDERABLES Performing Organization Address [facility] Co de Phone Number [facility] [place] [address] * CK (01/07/2020 3:48 AM EDT) CK, Total 55 0 - 160 unit/L [facility] Blood specimen (specimen) 01/07/2020 3:48 AM EDT 01/07/2020 4:06 AM EDT Narrative Resulting Agency Comment Spec In Lab Carley Martinez MD CHEMISTRY ORDERABLES Performing Organization Address [facility] de Phone Number [facility] [place] [address] * Troponin (01/07/2020 3:48 AM EDT) Pathologist [facility] Troponin-T <0.01 0.00 - 0.00 ng/mL [facility] Comment: The 99th percentile for Troponin T is less than 0.01 ng/mL, any detectable cTnT concentration using this assay should be considered elevated. According to the third universal definition of myocardial infarction the following criteria with a clinical presentation consistent with acute myocardial ischemia meets the diagnosis for a myocardial infarction (MA). Detection of a rise and/or fall of cTnT, with at least one value greater than the 99th percentile (> or = 0.01) and with at least one of the following ?? Symptoms of ischemia ?? New or presumed new significant EJ-mzvuygl-P wave (ST-T) changes or new left bundle [...] additional sample may be indicated. Reference: Third [place] Definition of Myocardial Infarction. Journal of the [place] [employer] 2012;60:1581-98 Blood specimen (specimen) 01/07/2020 3:48 AM EDT 01/07/2020 4:06 AM EDT Narrative Resulting Agency Comment Spec In Lab Carley Martinez MD CHEMISTRY ORDERABLES Performing Organization Address [facility] Co de Phone Number [facility] [place] [address] * CK (01/06/2020 6:31 PM EDT) CK, Total 82 0 - 160 unit/L [facility] Blood specimen (specimen) 01/06/2020 6:31 PM EDT 01/06/2020 6:44 PM EDT Narrative Resulting Agency Comment Spec In Lab Carley Martinez MD CHEMISTRY ORDERABLES Performing Organization Address [facility] Co de Phone Number [facility] [place] [address] * Troponin (01/06/2020 6:31 PM EDT) Troponin-T <0.01 0.00 - 0.00 ng/mL [facility] Comment: The 99th percentile for Troponin T is less than 0.01 ng/mL, any detectable cTnT concentration using this assay should be considered elevated. According to the third universal definition of myocardial infarction the following criteria with a clinical presentation consistent with acute myocardial ischemia meets the diagnosis for a myocardial infarction (MA). Detection of a rise and/or fall of cTnT, with at least one value greater than the 99th percentile (> or = 0.01) and with at least one of the following ?? Symptoms of ischemia ?? New or presumed new significant FN-nrsyvbi-B wave (ST-T) changes or new left bundle [...] additional sample may be indicated. Reference: Third [place] Definition of Myocardial Infarction. Journal of the [place] [employer] 2012;60:1581-98 Blood specimen (specimen) 01/06/2020 6:31 PM EDT 01/06/2020 6:44 PM EDT Narrative Resulting Agency Comment Spec In Lab Carley Martinez MD CHEMISTRY ORDERABLES [facility] [place] [address] * CARDIAC CATHETERIZATION (01/06/2020 2:40 PM EDT) Anatomical Region Laterality Modality Other Narrative 01/06/2020 4:09 PM EDT ?[facility] ? Cardiac Catheterization/Intervention Report ? Patient Name: Ramires, Heike M. ? Procedure Date: 01/06/2020 ? A #: [id number] ? Primary Physician: Shekhar, Gaurav Wilson ? Case #: [id number] ? File Name: [id number] ? Catheterization Order Number: [id number] ? [facility] ? Final Report [place], [place] ? Patient Name: ? Heike M. Ramires ?ID#: ?[id number] ? : ?1945 ? Procedure Date: ? January 06, 2020 ?Case #: ? [id number] ? Room: ? 6 ? Case Physician: [...] was Urgent. The indication for ?the laboratory chemical assistant visit is ACS less than or equal [...] and left heart ?catheterization. ? Gaurav Corrigan MOneidaD. ? Electronically Signed by: Nedra Trevino.D. ? Report Finalized: 01/06/2020 ??16:02 ? Procedure Note Gaurav Corrigan MD - 01/06/2020 [facility] Cardiac Catheterization/Intervention Report Patient Name: Heike Ramires Procedure Date: 01/06/2020 A #: [id number] Primary Physician: Gaurav Corrigan Case #: [id number] File Name: [id number] Catheterization Order Number: [id number] [facility] FinalReport [place], [place] Patient Name: Heike Ramires ID#:[id number] :1945 Procedure Date: January 06, 2020 Case [...] patient was designated as ASAClass III. The [facility] clinical frailty scale is 3: Managing Well. Diagnostic Tests: Electrocardiography: EKG was assessed by ECG. EKG was Abnormal. EKG showed new LBBB. Medications Prior to Procedure: ASA. Indications for Diagnostic Cath: The priority of the diagnostic procedure was Urgent. The indicationfor the laboratory chemical assistant visit is ACS less than or equal [...] COMPLETE (01/06/2020 1:48 PM EDT) EF 45 HEART[facility] SYSTEM Anatomical Region Laterality Modality Other 01/06/2020 Narrative 01/06/2020 2:07 PM EDT Procedure: ?Transthoracic Echocardiogram Patient: ?KIM Sneed ?(Age): 1945(74y) Med Rec#: ? [id number] ?Sex: ?F ? Site Loc: ? [facility] ?Ht / Wt: ??148(cm)/57(kg) Pt. Loc: ?Adult Floor ? BSA: ?1.5 Study Date: ?? 01/06/2020 ?Pt. Type: Inpatient Tape: ? Referring: [facility] Reading: Shabbir Velez ([id number]) Hand Kiss Setter: Fco Ortiz RDCS, FASE Diagnosis: *Non-ST elevation (NSTEMI) myocardial infarction (I21.4) [...] Vmax ?0.68 ? m/sec ? MV deceleration egob471.12 ? msec ? MV A-wave Vmax ?0.94 [...] ? Mid-Inferior ?Normal ? Mid-Inferoseptal ?Hypokinetic ? [place]-Septal ? Hypokinetic ? [place]-Anterior ? Hypokinetic ? [place]-Lateral ?Hypokinetic ? [place]-Inferior ? Hypokinetic ? [place]-Tip ?Hypokinetic ? This report has been electronically signed by: Shabbir Velez MD ? 01/06/2020 14:06:24 Images reviewed and interpretation verified [facility] Procedure Note Shabbir Velez MD - 01/06/2020 Procedure: Transthoracic Echocardiogram Patient: KIM Sneed (Age): 1945(74y) Med Rec#: [id number] Sex: F Site Loc: [facility] Ht / Wt: 148(cm)/57(kg) Pt. Loc: Adult Floor BSA: 1.5 Study Date: 01/06/2020 Pt. Type: Inpatient Tape: Referring: [facility] Reading: Shabbir Velez ([id number]) Hand Kiss Setter: Fco Ortiz RDCS, FASE Diagnosis: *Non-ST elevation (NSTEMI) myocardial infarction (I21.4) [...] MV E-wave Vmax 0.68 m/sec MV deceleration cphl005.12 msec MV A-wave Vmax 0.94 m/sec MV [...] Normal Mid-Posterolateral Normal Mid-Inferior Normal Mid-Inferoseptal Hypokinetic [place]-Septal Hypokinetic Fl[place]ot-Anterior Hypokinetic [place]-Lateral Hypokinetic [place]-Inferior Hypokinetic [place]-Tip Hypokinetic This report has been electronically signed by: Shabbir Velez MD 01/06/2020 14:06:24 Images reviewed and interpretation verified [facility] Carley Martinez MD ECHO ORDERABLES * (ABNORMAL) CRP, acute inflammation (01/06/2020 12:31 PM EDT) CRP 33.3(H) <=4.9 mg/L [facility] Blood specimen (specimen) Venous Draw / Unknown 01/06/2020 12:31 PM EDT 01/06/2020 12:40 PM EDT Narrative Resulting Agency Comment Spec In Lab Noemi BLANDON CHEMISTRY ORDERABLES [facility] [place] [address] * Sedimentation rate (01/06/2020 12:31 PM EDT) [facility] Sed Rate 13 3 - 46 mm/hr [facility] Comment: Effective September 08, 2019 new [...] BLANDON HEMATOLOGY ORDERABLE S Performing Organization Address City/[facility]/ZIP Co de Phone Number [facility] [place] [address] * TSH (01/06/2020 12:31 PM EDT) [facility] TSH 1.31 0.27 - 4.20 mcIU/mL [facility] Blood specimen (specimen) Venous Draw / Unknown 01/06/2020 12:31 PM EDT 01/06/2020 12:40 PM EDT Narrative Resulting Agency Comment Spec In Lab Noemi BLANDON CHEMISTRY ORDERABLES Performing Organization Address City/[facility]/ZIP Co de Phone Number [facility] [place] [address] * (ABNORMAL) Differential, Automated (01/06/2020 12:31 PM EDT) [facility] Neutrophils % 87.1 % [facility] Neutr Abs (ANC) 8.97(H) 1.70 - 6.10 x10(3)/mc L [facility] Lymphocytes % 5.1 % [facility] Lymphocytes Abs 0.5(L) 0.9 - 3.2 x10(3)/mc L [facility] Monocytes % 6.7 % [facility] Monocyte Abs 0.7 0.3 - 0.9 x10(3)/mc L [facility] Eosinophils % 0.4 % [facility] Eosinophils Abs 0.0 0.0 - 0.4 x10(3)/[facility]OR[facility] Basophils % 0.3 % [facility] Basophils Abs 0.0 0.0 - 0.1 x10(3)/[facility]ORATORY Immature Gran % 0.40 % [facility] Comment: Immature granulocytes(IG's)percentage and absolute count will include metamyelocytes, myelocytes, and promyelocytes. Blood smears from CBCs yielding IG's will be scanned manually for concordance. If this scan disagrees with the automated IG or if promyelocytes are noted, a manual differential will be performed. Anne Gran Abs 0.04 0.00 - 0.04 x10(3)/[facility] Blood specimen (specimen) 01/06/2020 12:31 PM EDT 01/06/2020 12:39 PM EDT Narrative Resulting Agency Comment Spec In Lab Noemi BLANDON HEMATOLOGY ORDERABLE S [facility] [place] [address] * (ABNORMAL) Hemogram (01/06/2020 12:31 PM EDT) WBC 10.3(H) 4.0 - 9.5 x10(3)/[facility] LABORATORY RBC 4.03 4.00 - 5.21 x10(6)/[facility] Hemoglobin 11.8 11.7 - 15.5 gm/dL [facility] Hematocrit 37.4 35.7 - 45.8 % [facility] MCV 92.8 82.6 - 94.[address] [facility] MCH 29.3 27.1 - 32.0 pg [facility] MCHC 31.6(L) 31.7 - 35.0 gm/dL [facility] Platelets 165 145 - 357 x10(3)/[facility] RDWSD 43.2 37.0 - 46.[address] [facility] RDWCV 12.6 11.5 - 14.1 % [facility] MPV 10.3 7.6 - 12.9 [facility] nRBC % Auto 0.0 % [facility] nRBC Abs Auto 0.000 0.000 - 0.000 x10(3)/mcL [facility] Blood specimen (specimen) 01/06/2020 12:31 PM EDT 01/06/2020 12:39 PM EDT Narrative Resulting Agency Comment Spec In Lab Noemi BLANDON HEMATOLOGY ORDERABLE S [facility] [place] [address] * Heparin (unfractionated) Level (01/06/2020 12:31 PM EDT) Heparin UFH Level 0.76 IU/mL [facility] Comment: Guidelines for therapeutic unfractionated [...] MD HEMATOLOGY ORDERABLE S Performing Organization Address City/[facility]/ZIP Co de Phone Number [facility] [place] [address] * CK (01/06/2020 12:31 PM EDT) [facility] CK, Total 96 0 - 160 unit/L [facility] Blood specimen (specimen) 01/06/2020 12:31 PM EDT 01/06/2020 12:39 PM EDT Narrative Resulting Agency Comment Spec In Lab Carley Martinez MD CHEMISTRY ORDERABLES Performing Organization Address [facility] Co de Phone Number [facility] [place] [address] * Troponin (01/06/2020 12:31 PM EDT) [facility] Troponin-T <0.01 0.00 - 0.00 ng/mL [facility] Comment: The 99th percentile for Troponin T is less than 0.01 ng/mL, any detectable cTnT concentration using this assay should be considered elevated. According to the third universal definition of myocardial infarction the following criteria with a clinical presentation consistent with acute myocardial ischemia meets the diagnosis for a myocardial infarction (MA). Detection of a rise and/or fall of cTnT, with at least one value greater than the 99th percentile (> or = 0.01) and with at least one of the following ?? Symptoms of ischemia ?? New or presumed new significant MZ-myrqqaw-H wave (ST-T) changes or new left bundle [...] additional sample may be indicated. Reference: Third [place] Definition of Myocardial Infarction. Journal of the [place] [employer] 2012;60:1581-98 Blood specimen (specimen) 01/06/2020 12:31 PM EDT 01/06/2020 12:39 PM EDT Narrative Resulting Agency Comment Spec In Lab Carley Martinez MD CHEMISTRY ORDERABLES Performing Organization Address [facility] Co de Phone Number [facility] [place] [address] * (ABNORMAL) APTT (01/06/2020 12:31 PM EDT) PTT 100(H) 25 - [address] [facility] Comment: The PTT is NOT appropriate for heparin monitoring. Use the Anti-Xa level for heparin monitoring (HEP UFH) or LMWH monitoring (HEP LMW). A PTT less than 37 seconds generally indicates adequate hemostasis. Blood specimen (specimen) 01/06/2020 12:31 PM EDT 01/06/2020 12:39 PM EDT Narrative Resulting Agency Comment Spec In Lab Carley Martinez MD HEMATOLOGY ORDERABLE S Performing Organization Address [facility] Co de Phone Number [facility] [place] [address] * Prothrombin Time (01/06/2020 12:31 PM EDT) PT 12.3 9.4 - 12.[address] [facility] INR 1.1 [facility] Comment: An INR <2.0 indicates [...] MD HEMATOLOGY ORDERABLE S Performing Organization Address [facility] Co de Phone Number [facility] [place] [address] * (ABNORMAL) pro-Brain Natriuretic Peptide (01/06/2020 12:31 PM EDT) ProBNP 4,968(H) <=125 pg/mL [facility] Blood specimen (specimen) 01/06/2020 12:31 PM EDT 01/06/2020 12:39 PM EDT Narrative Resulting Agency Comment Spec In Lab Carley Martinez MD CHEMISTRY ORDERABLES [facility] [place] [address] * (ABNORMAL) Basic Metabolic Panel (non-fasting) (01/06/2020 12:31 PM EDT) Glucose Lvl 125 65 - 199 mg/dL [facility] Comment:Diabetes: >=200 mg/d L plus symptoms BUN 10 8 - 18 mg/dL [facility] Creatinine 0.61(L) 0.70 - 1.20 mg/dL [facility] Sodium 136 135 - 145 mmol/L [facility] Potassium 4.0 3.5 - 5.0 mmol/L [facility] Comment: Please note: ??Patients with WBC >100,000 may have falsely elevated Potassium levels. ??For accurate Potassium quantification in these patients send serum separator tube (gold top) for subsequent determinations. ??Contact the Clinical Chemistry Laboratory if there are any questions. Chloride 104 98 - 107 mmol/L [facility] CO2 21(L) 22 - 31 mmol/L [facility] Anion Gap 11 5 - 15 mmol/L [facility] Calcium 8.3(L) 8.5 - 10.5 mg/dL [facility] Estimated GFR 89 >=60 mL/min/1. 73 m?? [facility] Comment: The eGFR was calculated using the CKD-EPI equation. As with all creatinine based estimates of kidney function, eGFR values calculated with the CKD-EPI equation are not accurate in patients with acute kidney failure, extremes of body mass or the acutely ill. http://tinyurl.com/DHMCnkf eGFR 104 >=60 mL/min/1. 73 m?? [facility] Comment: The eGFR was calculated using the CKD-EPI equation. As with all creatinine based estimates of kidney function, eGFR values calculated with the CKD-EPI equation are not accurate in patients with acute kidney failure, extremes of body mass or the acutely ill. http://Stat/DHMCnkf Blood specimen (specimen) 01/06/2020 12:31 PM EDT 01/06/2020 12:39 PM EDT Narrative Resulting Agency Comment Spec In Lab Carley Martinez MD CHEMISTRY ORDERABLES Performing Organization Address [facility] Co de Phone Number [facility] [place] [address] * EKG 12 Lead (01/06/2020 12:07 PM EDT) Ventricular rate 81 BPM MUSE SYSTEM Atrial Rate 81 BPM MUSE SYSTEM P-R Interval 160 ms MUSE SYSTEM QRS Duration 140 ms MUSE SYSTEM Q-T Interval 460 ms MUSE SYSTEM QTC Calculated (Bezet) 534 ms MUSE SYSTEM Calculated P [place] 45 degrees MUSE SYSTEM Calculated R [place] -29 degrees MUSE SYSTEM Calculated T [place] 39 degrees MUSE SYSTEM INTERPRETATION Normal sinus rhythm Left bundle branch block Abnormal ECG When compared with ECG of 12-DEC-2017 14:30, Left bundle branch block is now Present Confirmed by Shabbir Velez MD ([id number]) on 01/06/2020 12:31:01 PM MUSE SYSTEM 01/06/2020 12:0 7 PM EDT 01/06/2020 12:31 PM EDT Carley Martinez MD ECG ORDERABLES Performing Organization Address [facility] Co de Phone Number MUSE SYSTEM documented in this encounter Visit Diagnoses Not on filedocumented in this encounter Admitting Diagnoses Diagnosis NSTEMI [...] Given 01/06/2020 6:32 PM EDT 650 mg bisacodyL (Dulcolax) suppository 10 mg 10 [...] Given 01/07/2020 7:52 AM EDT 200 mg docusate sodium (Colace) capsule 100 mg 100 mg, Oral, 2 TIMES DAILY, First dose on Fri01/07/20 at 2100, Until Discontinued, Routine fentaNYL 50 mcg/mL multi-dose injection ONCE PRN, Starting on Indira 01/06/20 at 1408, Until Indira 01/06/20 at 1504, Intra-Operative (Intra-Procedure), Routine Given 01/06/2020 2:08 PM EDT 12.5 mcg heparin (porcine) 1,000 unit/mL injection ONCE PRN, Starting on Indira 01/06/20 at 1417, Until Indira 01/06/20 at 1438, Cath (Intra-Procedure), Routine Given 01/06/2020 2:17 PM EDT 3,000 Units iohexoL (OMNIPAQUE) 350 mg/mL solution ONCE PRN, Starting on Indira 01/06/20 at 1437, Until Indira 01/06/20 at 1438, Cath (Intra-Procedure), Routine Given 01/06/2020 2:37 PM EDT 65 mLs losartan (Cozaar) tablet 25 mg 25 mg, Oral, NIGHTLY, First dose on Fri01/07/20 at 2100, Until Discontinued, Routine Given 01/07/2020 9:30 PM EDT 25 mg metoprolol tartrate (Lopressor) tablet 12.5 mg 12.5 mg, Oral, EVERY 12 HOURS SCHEDULED (2 times per day), First dose on Fri01/07/20 at 0930, Until Discontinued, Hold for SBP under 90 or HR under 50., Routine Given 01/08/2020 8:38 AM EDT 12.5 mg Given 01/07/2020 9:30 PM EDT 12.5 mg Given 01/07/2020 9:34 AM EDT 12.5 mg midazolam (PF) (VERSED) multi-dose injection ONCE PRN, Starting on Indira 01/06/20 at 1408, Until Fri01/06/20 at 1444, Cath (Intra-Procedure), Routine Given 01/06/2020 2:08 PM EDT 1 mg nitroGLYcerin 100 mcg/mL intracoronary dilution ONCE PRN, Starting on Fri01/06/20 at 1407, Until Fri01/06/20 at 1444, Cath (Intra-Procedure), Routine Given 01/06/2020 2:07 PM EDT 150 mcg polyethylene glycol (Miralax) packet 17 g 17 g, Oral, DAILY, First dose on Fri01/07/20 at 1530, Until Discontinued, Routine Given 01/07/2020 3:06 PM EDT 17 g verapamiL (ISOPTIN) injection ONCE PRN, Starting on Fri01/06/20 at 1407, Until Indira 01/06/20 at 1444, Administer over 2 Minutes, Cath (Intra-Procedure) Given 01/06/2020 2:07 PM EDT 2.5 mg documented in this encounter Active and Recently Administered Medications Times are shown in EDT. Scheduled Medication Order 01/06/2020 01/07/2020 01/08/2020 atorvastatin (Lipitor) tablet 40 mg (CANCELED) 40 mg, Oral, EVERY EVENING, First dose on Fri01/06/20 at 1700, Until Discontinued, Routine 1342 (NOV Hold - Provider: Admin Adt - Reason: Transfer to a Procedural area)1504 (MAR Unhold - Provider: Admin Adt)1704 (Given - Provider: Bruce Kowalski RN) carBAMazepine (TEGretol) tablet 200 mg 200 mg, Oral, 2 TIMES DAILY WITH MEALS, First dose on Fri01/06/20 at 1830, Until Discontinued, DO NOT SPLIT, CRUSH OR OPEN, Routine 2052 (Given - Provider: Analilia Lazar RN) 0752 (Given - Provider: Bruce Kowalski, TUSHAR)1901 (Given - Provider: Yolie Phillips RN - Comment: given late, nauseous earlier) 0838 (Given - Provider: Bipin Ruiz) carvediloL (Coreg) tablet 3.125 mg (CANCELED) 3.125 mg, Oral, 2 TIMES DAILY WITH MEALS, First dose on Fri01/06/20 at 1700, Until Discontinued, Routine 170 (Given - Provider: Bruce Kowalski, TUSHAR) 0800 (Not Given - Provider: Bruce Kowalski [...] 20 mg, Intravenous, ONCE, 1 dose, On Fri01/06/20 at 1515, Routine 1700 (Given - Provider: Bruce Kowalski RN) losartan (Cozaar) tablet 25 mg 25 mg, Oral, NIGHTLY, First dose on Fri01/07/20 at 2100, Until Discontinued, Routine 2130 (Given - Provider: Kimberly Aviles RN) metoprolol (LOPRESSOR) injection 5 mg (COMPLETED) 5 mg, Intravenous, ONCE, 1 dose, On Fri01/06/20 at 1300 1250 (Given - Provider: Bruce [...] Phillips RN - Comment: stopped by laboratory chemical assistant RN)1342 (NOV Hold - Provider: Admin Adt - Reason: Transfer to a Procedural area)1504 (NOV Unhold - Provider: Admin Adt) sodium chloride 0.9% infusion () 150 mL/hr, Intravenous, CONTINUOUS, Starting on Indira 01/06/20 at 1500, Until Indira 01/06/20 at 1659, Recovery (Recovery-Hospital Unit) 1500 (New Bag - Provider: Poonam Mar RN)1610 (Stopped - Provider: Bruce Kowalski RN) PRN Medication Order 01/06/2020 01/07/2020 01/08/2020 acetaminophen (Tylenol) tablet 650 mg 650 mg, Oral, EVERY 4 HOURS PRN, Starting on Indira 01/06/20 at 1309, Until 01/08/20 at 1538, Pain, Headaches, Maximum dose of acetaminophen is 4000 mg from all sources in 24 hours., Routine 1342 (NOV Hold - Provider: Admin Adt - Reason: Transfer to a Procedural area)1504 (NOV Unhold - Provider: Admin Adt)1832 (Given - Provider: Yolie Phillips RN - Comment: chest) 0933 (Given - Provider: Bruce Kowalski, TUSHAR) bisacodyL (Dulcolax) suppository 10 mg 10 mg, Rectal, DAILY PRN, Starting on 01/07/20 at 1750, Until 01/08/20 at 1538, Constipation, Routine 1758 (Given - Provider: Yolie Phillips RN) fentaNYL 50 mcg/mL multi-dose injection (CANCELED) ONCE PRN, Starting on Indira 01/06/20 at 1408, Until Indira 01/06/20 at 1504, Intra-Operative (Intra-Procedure), Routine 1408 (Given - Provider: Gaurav Gastelum RN) heparin (porcine) 1,000 unit/mL injection (CANCELED) ONCE PRN, Starting on Indira 01/06/20 at 1417, Until Indira 01/06/20 at 1438, Cath (Intra-Procedure), Routine 1417 (Given - Provider: Henry Brito RN) iohexoL (OMNIPAQUE) 350 mg/mL solution (CANCELED) ONCE PRN, Starting on Indira 01/06/20 at 1437, Until Indira 01/06/20 at 1438, Cath (Intra-Procedure), Routine 143 (Given - Provider: Gaurav Corrigan MD) midazolam [...] last 24 to 72 hours., Routine 1342 (MAR Hold - Provider: Admin Adt - Reason: [...] UA) documented in this encounter Care Teams Word Processing Supervisor Relationship Specialty Start Date End Date Henrietta Null MD [facility] [address] [place] [address] PCP - General 12/20/10 05/08/20 documented as of this encounter
--- OUTSIDE RECORDS SUMMARY | 2024-04-23 12:15 | XMS_ITS | Encounter Summary ---
Author Organization [facility] [place] [address] Care Team Providers Care Herbarium Curator Name Role Phone Henrietta Null MD Primary Care Provider [phone] Encounter Details Date Type Department Care Team (Late st Contact Info) Description 04/06/2018 Telephone Internal Medicine at [address] [address] Rosa Shook RN Social History [...] Telephone Encounter - Deuce Shook RN - 04/06/2018 11:16 AM EDT Caller: patient Learning Needs Assessment Reviewed: No Subjective vomiting/diarrhea Objective/Assessment Symptom onset: started this morning Location: n/a Duration: n/a Characteristics: patient woke up early this morning with vomitting and diarrhea, she has been unable to keep anything down, has vomited 7-8x since 6:00 Aggravating factors: food or fluids into stomach Relieving factors: none noted Past Medical History: Past Medical History: Diagnosis Date ??? Dysplastic nevus Plan Intervention/Plan/ Follow Up: Patient advised to keep AWV appointment today to see Dr. Null and be assessed documented in this encounter Plan of Treatment Upcoming Encounters Date Type Department Care Team (Late st Contact Info) Description 07/07/2024 11:00 AM EDT Office Visit Cardiology at [address] [place] [id number] Lorena Lawrence MD [facility] [place] [id number] documented as of this encounter Visit Diagnoses Not on filedocumented in this encounter Care Teams Herbarium Curator Relationship Specialty Start Date End Date Henrietta Null MD [facility] [address] [place] [address] PCP - General 12/20/10 05/08/20 documented as of this encounter
--- OUTSIDE RECORDS SUMMARY | 2024-04-23 12:15 | XMS_ITS | Encounter Summary ---
Author Organization Formerly [facility] [place] [address] Care Team Providers Care Flatbed Truck Driver Name Role Phone Henrietta Null MD Primary Care Provider [phone] Reason for Visit * Reason Comments Annual Wellness Visit Encounter Details Date Type Department Care Team (Late st Contact Info) Description 04/06/2018 2:20 PM EDT Office Visit Internal Medicine at [address] [address] Henrietta Null MD [facility] [address] Medicare annual wellness visit, subsequent; Intractable vomiting with nausea, unspecified vomiting type; Hyperlipidemia, unspecified hyperlipidemia type Social History Tobacco [...] Sign Reading Time Taken Comments Blood Pressure 100/44 04/06/2018 2:02 PM EDT Pulse 76 04/06/2018 2:02 PM EDT Temperature 36.7 ??C (98 ??F) 04/06/2018 2:02 PM EDT Respiratory Rate 20 04/06/2018 2:02 PM EDT Oxygen Saturation 99% 04/06/2018 2:02 PM EDT Inhaled Oxygen Concentration - - Weight 52.6 kg (116 lb) 04/06/2018 2:02 PM EDT Height 149.2 cm (4' 10.75) 04/06/2018 2:02 PM E DT Body Mass Index 23.63 04/06/2018 2:02 PM EDT documented in this encounter Progress Notes * Henrietat Null MD - 04/06/2018 2:20 PM EDT AWV: [id number] Chief Complaint Patient presents with ??? Annual Wellness Visit HEIKE RAMIRES seen today for subsequent annual wellness visit. Unfortunately at 6 am this morning she started feeling nauseated and started throwing up. She has thrown up 7-8 times since starting,including while she was sitting in the examining room waiting for me when she threw up some bile looking fluid. She has had loose stools but no liquid stools and denies any abdominal pain, hematemesis , coffee grounds, melena or BRBPR. She denies f/c, but has felt sweaty as she has been throwing up.She has had no sick contacts, recent travel and has not eaten anything unusual. She says that this is very similar to previous episodes which have led her to require ER visits for fluids. These occurabout once/year. She doesn't recall ever being told what caused the episodes. She says that when she gets a BRAGA with these episodes, then she knows she is dehydrated and knows she needs to go to ER. This past year has been more eventful than most with admission to the hospital in late November with hypoxemic respiratory distress of unknown etiology but which improved with nebulizers and prednisone.She followed up with pulmonary with PFT's showing mild obstruction and she was treated like asthma (CTPA neg, A1AT normal, RAST/RIST normal. She says that her breathing is now fine. Medical and family history reviewed. Specific active medical issues managed today are in second section of note. Annual Wellness Visit Responses: myD-H Annual Wellness Visit Responses 04/06/2018 Health in general Very Good Quality of life Very Good Physical health Very Good Mental health Very Good Satisfaction with social activities Very Good Ability to carry out social activities Very Good Ability to carry out physical activities Mostly Bothered by emotional problems Never Rate of fatigue Mild Rate of pain 0 -No Pain PROMIS-10 Physical Health Score 54.1 PROMIS-10 Mental Health Score 56 Hearing Loss No Activity - low level (Bathing, Dressing, Eating, Mobility, Using toilet, Grooming) I do not need any help Activity - high level (Laundry, Housekeeping, Banking, Shopping, Use phone, Food Prep, Transportation, Taking meds) I do not need any help Fallen in last year No Difficulties with balance or walking No Injured as a result of a fall No Walkways free of cords/clutter No Smoke detectors in house No Difficulty walking 1/4 mile No or some difficulties Difficulty climbing a flight of stairs No or some difficulties Involuntarily lost > 10 pounds No Feel everything is an effort/could not get going Rarely or sometimes (2 times or less/week) Physical activity level Regular physical activity (at least 2-4 hours per week) Disability Score (FiND) 0 (Robust) Little interest or pleasure Not at all Down, depressed, hopeless Not at all Feel lonely or isolated Never Have money for everyday living Sometimes Confident in managing health problems Somewhat confident Confident filling medical forms Extremely Medication finances No Smoking Status Never Drinking frequency Never Drinks per day 0 drinks 6+ drinks on one occasion Never Audit-C Score 0 (No Risk) 10 mins of vigorous physical activity 6 days Time spent on vigorous physical activity 90 minutes or more 10 mins of moderate physical activity 7 days Time spent on moderate physical activity 90 minutes or more Eat Fruit 4 - 5 times per day Eat Vegetables 4 - 5 times per day Eat Peanut Butter - Eat Nuts and Seeds - Eat Tuna or Other Dark Meat Fish - Take Supplements - Wear Seatbelt Always Tooth or Mouth Problems No Urinary Incontinence No Sexually active No Live Alone No School - Employment Status Currently working Hours per week 30-39 hours Combined Household Income $25,000 to less than $35,000 # People Supported 2 Who is taking survey I am (patient) Providers: Dr. Joshi in Dermatology, Dr. Pina in Pulmonary Suppliers: Preventative health care DT: Tdap 12/13/08 (from scanned pcp records in [facility]) Pneumonia: 2009, 2014 Influenza:yearly Shingles: 2012 Cigarettes: none Alcohol: none Caffeine:little Exercise: active in job, treadmill Seat Belts: consistent Helmets:consistent Cholesterol (Total/HDL/LDL): Lab Results Component Value Date CHLPL 241 04/02/2018 HDL 60 04/02/2018 TRIG 105 04/02/2018 LDLCHOL 160 04/02/2018 LDLDIRECT 183 (H) 02/16/2016 Diabetes Screening: Lab Results Component Value Date GLUCFASTING 94 03/21/2017 Optho Screening: recent Calcium/Vitamin D: adequate Colon Cancer Screening: Colonoscopy 03/[address] [facility] Osteoporosis Screening: Dexa 2015 lowest - 3. 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 Since trigeminal neuralgia surgery Urinary incontinence: none Fecal incontinence: None IADL: can use telephone, finances, medications, laundry, housework, shopping, driving in familar areas. ADL: independent in bathing, dressing, transfers, toileting, grooming, feeding Mobility: the patient is ambulatory and very active Use of Assisted Devise: none Lifeline: none Nutrition/weight loss: stable. Dentition:no issues Driving: no recent accidents. Assessment of cognitive function - mini-cog not performed. No issues per pt and . Advanced Care planning: advanced directive scanned into [facility] Depression- PHQ9 Questionnaires Data (Clinic and Pt Entered): Today's value PHQ-9 QUESTIONNAIRE (AMB) 04/06/2018 PHQ - 9 Score (Clinic) - Little interest or pleasure (Clinic) - Little interest or pleasure (Patient) Not at all Down, depressed, hopeless (Clinic) - Down, depressed, hopeless (Patient) Not at all BP 100/44 (BP Location (NBP): Left arm, Patient Position: Sitting, BP Cuff Sizes: Adult (25-34 cm)) Pulse 76 Temp 36.7 ??C (98 ??F) (Oral) Resp 20 Ht 149.2 cm (4' 10.75) Wt 52.6 kg (116 lb) SpO2 99% BMI 23.63 kg/m2 Body mass index is 23.63 kg/(m^2). Health risk assessment: (at risk for:) Average risk for age related illnesses. Mental health risk factors: none Written screening schedule: Health Maintenance Topic Date Due ??? Hepatitis C Screening 1985 ??? Influenza (Flu) vaccine (1 of 1 - Influenza Standard Series) 05/30/2018 ??? Tetanus vaccine 12/13/2018 ??? Breast Cancer Screening 02/03/2019 ??? Colonoscopy 03/21/2019 ??? Pneumo vaccine (65+) Completed ??? Bone Density,female 65+ Completed ??? Zoster vaccine Completed ??? Tdap adult Completed ??? Zoster vaccine (pending deactivation) Completed Lab Results Component Value Date CHLPL 241 04/02/2018 HDL 60 04/02/2018 TRIG 105 04/02/2018 LDLCHOL 160 04/02/2018 LDLDIRECT 183 (H) 02/16/2016 Personal Health advice: [ ] weight loss: [x] physical activity: active with job. [ ] smoking cessation: [ ] fall prevention: [ ] nutrition: [ ] community based lifestyle interventions: [ ] other ACTIVE MEDICAL ISSUES Patient Active Problem List Diagnosis ??? Nevus, atypical - foot - sees derm on yearly basis. ??? Ovarian fibroma - s/p resection. No residual discomfort ??? Osteoporosis - on Drug holiday. Met with endocrine 2 years ago - dexa values in osteoporotic range. On ca/vit d. No fracture. Last dexa 2017 with lowest - 3.0, + prior tegretol use- no sig change - spine much worse than the hip. ??? Trigeminal neuralgia - taking inositol with good relief, tapered off her tegretol completely! ROS: Constitutional - no fevers, chills, + sweats (with this illness) No sig weight loss or gain, fatigue HEENT - No difficulty swallowing. No nasal congestion or postnasal drip, mild hearing loss R ear Respiratory - No new SOB, KRUGER, wheeze, cough, sputum production Cardiovascular - No new CP, palpitations, angina, edema, claudication Gastrointestinal - Above - no new difficulty urinating, incontinence or dysuria. Musculoskeletal - No new focal weakness, pain at rest or with movement Skin - no new rashes All other systems negative Current Outpatient Prescriptions on File Prior to Visit Medication Sig Dispense Refill ??? fluticasone (FLONASE) 50 mcg/actuation Oracle, Suspension 1 spray by Each Nare route daily. 16 g11 ??? CALCIUM LACTATE ORAL Take by mouth. ??? INOSITOL ORAL Take by mouth. ??? cholecalciferol, Vitamin D3, (VITAMIN D) 1,000 unit Tab tablet Take 1 tablet by mouth daily. ??? cyanocobalamin (VITAMIN B-12) 1,000 mcg tablet ??? fluconazole (DIFLUCAN) 100 mg Tablet Take 1 tablet by mouth daily. (Patient not taking: Reported on 04/06/2018) 10 tablet 0 ??? albuterol 90 mcg/actuation HFA Aerosol Inhaler Inhale 1 puff into the lungs 4 times daily. Use with spacer (Patient not taking: Reported on 04/06/2018) 1 Inhaler 1 No current facility-administered medications on file prior to visit. Physical Exam: Vitals: 04/06/18 1402 BP: 100/44 BP Location (NBP): Left arm Patient Position: Sitting BP Cuff Sizes: Adult (25-34 cm) Pulse: 76 Resp: 20 Temp: 36.7 ??C (98 ??F) TempSrc: Oral SpO2: 99% Weight: 52.6 kg (116 lb) Height: 149.2 cm (4' 10.75) General - No acute distress. Appears more tired than her baseline. ENT - Mouth dry without lesions. TM clear. Hearing decreased R hear to clicking with fingers. Eyes- EOMI. Not jaundiced. Noninjected Neck - No lymphadenopathy. No thyromegaly Lungs - Clear to auscultation. good air movement, no crackles. Breasts - No masses, no rashes, no LAD Heart - RRR, S1,S2, no audible murmur, gallop or rub. Abdomen/GI - Soft, nontender, normal active bowel sounds, neg hsm or masses. Extremities - No clubbing, cyanosis or edema. Pulses intact. Orthostatics - 112/68, 74; 102/49, 77; 103/61, 87. Assessment and Plan: Addl Diagnoses and all orders for this visit: Vomiting with nausea - apparently recurrent in nature, although rare. She is borderline orthostatictoday and given her history of requiring IV fluids with similar illnesses, an attempt was made today in our office to start an IV. Unfortunately, staff was unable to do this. The patient rested and at the end of the visit took a small amount of water by mouth and did not throw it up. She was recommended to stop at the pharmacy and spanish moss picker a prescription for Phenergan suppositories which she can take this evening should she have continued nausea and vomiting. She is aware that if she starts having symptoms of hypotension, she will need to go to the emergency room for management. The exact cause of her symptoms is unclear, however the recurrent nature makes a intermittent small bowel obstruction possible. One would expect that she would be having some pain however with obstruction. Labs as below will be collected. - Comprehensive metabolic panel (non-fasting); Future - CBC (with Diff); Future - Lipase; Future - Comprehensive metabolic panel (non-fasting) - CBC (with Diff) - Lipase - Hemogram - Differential, Automated - promethazine (PHENERGAN) 12.5 mg Suppository; Place 1 suppository rectally every 6 hours as needed for Nausea. Hyperlipidemia, unspecified hyperlipidemia type -we discussed her continued elevation in her cholesterol levels. At this point in time the patient is resistant to starting a statin medication, which I think is reasonable given that her levels are her only cardiac risk factor. She would like to continue a herbal supplement that she receives from her chiropractor. Osteoporosis -DEXA last year showing no change in her bone density. We will continue her drug holiday, cont ca/vit d. Focus on weight bearing exercise. Trigeminal neuralgia - doing terrific off medications. The 10-year ASCVD risk score ([place] DC Jr, et al., 2013) is: 8.5% Values used to calculate the score: Age: 73 years Sex: Female Is Non- : No Diabetic: No Tobacco smoker: No Systolic Blood Pressure: 100 mmHg Is BP treated: No HDL Cholesterol: 60 mg/dL Total Cholesterol: 241 mg/dL documented in this encounter Plan of Treatment Upcoming Encounters Date Type Department Care Team (Late st Contact Info) Description 07/07/2024 11:00 AM EDT Office Visit Cardiology at [address] [phone] Lorena Lawrence MD [facility] [place] [address] documented as of this encounter Procedures Procedure Name Priority Date/Time Associated Diagnosis Comments HEMOGRAM Routine 04/06/2018 4:52 PM EDT Intractable vomiting with nausea, unspecified vomiting type DIFFERENTIAL, AUTOMATED Routine 04/06/2018 4:52 PM EDT Intractable vomiting with nausea, unspecified vomiting type CBC (WITH DIFF) Routine 04/06/2018 4:52 PM EDT Intractable vomiting with nausea, unspecified vomiting type LIPASE Routine 04/06/2018 4:52 PM EDT Intractable vomiting with nausea, unspecified vomiting type COMPREHENSIVE METABOLIC PANEL (NON-FASTING) Routine 04/06/2018 4:52 PM EDT Intractable vomiting with nausea, unspecified vomiting type documented in this encounter Results * (ABNORMAL) Differential, Automated (04/06/2018 4:52 PM EDT) Neutrophils % 92.5 % [facility] Neutr Abs (ANC) 8.07(H) 1.70 - 6.10 x10(3)/mc L [facility] Lymphocytes % 4.8 % [facility] Lymphocytes Abs 0.4(L) 0.9 - 3.2 x10(3)/mc L [facility] Monocytes % 1.9 % [facility] Monocyte Abs 0.2(L) 0.3 - 0.9 x10(3)/mc L [facility] Eosinophils % 0.0 % [facility] Eosinophils Abs 0.0 0.0 - 0.4 x10(3)/mc L [facility] Basophils % 0.3 % [facility] Basophils Abs 0.0 0.0 - 0.1 x10(3)/mc L [facility] Immature Gran % 0.50 % [facility] Comment: Immature granulocytes(IG's)percentage and absolute count will include metamyelocytes, myelocytes, and promyelocytes. Blood smears from CBCs yielding IG's will be scanned manually for concordance. If this scan disagrees with the automated IG or if promyelocytes are noted, a manual differential will be performed. Anne Gran Abs 0.04 0.00 - 0.04 x10(3)/mc L [facility] Blood specimen (specimen) 04/06/2018 4:52 PM EDT 04/06/2018 6:32 PM EDT Narrative Resulting Agency Comment Spec In Lab Henrietta Null MD HEMATOLOGY ORDERABLE S [facility] [address] * (ABNORMAL) Hemogram (04/06/2018 4:52 PM EDT) WBC 8.7 4.0 - 9.5 x10(3)/[facility] RBC 4.74 4.00 - 5.21 x10(6)/[facility] Hemoglobin 13.3 11.7 - 15.5 gm/dL [facility] Hematocrit 42.5 35.7 - 45.8 % [facility] MCV 89.7 82.6 - 94.4 [facility] MCH 28.1 27.1 - 32.[address] [facility] MCHC 31.3(L) 31.7 - 35.0 gm/dL [facility] Platelets 227 145 - 357 x10(3)/[facility] RDWSD 42.4 37.0 - 46.0 [facility] RDWCV 12.7 11.5 - 14.1 % [facility] MPV 11.1 7.6 - 12.9 [facility] nRBC % Auto 0.0 % [facility] nRBC Abs Auto 0.000 0.000 - 0.000 x10(3)/[facility] Blood specimen (specimen) 04/06/2018 4:52 PM EDT 04/06/2018 6:32 PM EDT Narrative Resulting Agency Comment Spec In Lab Henrietta Null MD HEMATOLOGY ORDERABLE S Performing Organization Address City/[facility]/ZIP Co de Phone Number [facility] [place] [address] * Lipase (04/06/2018 4:52 PM EDT) Lipase 33 0 - 60 unit/L [facility] Blood specimen (specimen) 04/06/2018 4:52 PM EDT 04/06/2018 6:31 PM EDT Narrative Resulting Agency Comment Spec In Lab Henrietta Null MD CHEMISTRY ORDERABLES Performing Organization Address [facility] de Phone Number [facility] [place] [address] * (ABNORMAL) Comprehensive metabolic panel (non-fasting) (04/06/2018 4:52 PM EDT) Pathologist [facility] Glucose Lvl 113 65 - 199 mg/dL [facility] Comment:Diabetes: >=200 mg/d L plus symptoms BUN 24(H) 8 - 18 mg/dL [facility] Creatinine 0.76 0.70 - 1.20 mg/dL [facility] Sodium 140 135 - 145 mmol/L [facility] Potassium 4.4 3.5 - 5.0 mmol/L [facility] Comment: Please note: ??Patients with WBC >100,000 may have falsely elevated Potassium levels. ??For accurate Potassium quantification in these patients send serum separator tube (gold top) for subsequent determinations. ??Contact the Clinical Chemistry Laboratory if there are any questions. Chloride 103 98 - 107 mmol/L [facility] CO2 22 22 - 31 mmol/L [facility] Anion Gap 15 5 - 15 mmol/L [facility] Calcium 8.8 8.5 - 10.5 mg/dL [facility] Total Protein 7.2 6.1 - 8.0 gm/dL [facility] Albumin 4.3 3.2 - 5.2 gm/dL [facility] AST 32(H) 0 - 30 unit/L [facility] ALT 27 0 - 30 unit/L [facility] Alk Phos 112(H) 40 - 104 unit/L [facility] Total Bilirubin 0.5 0.2 - 1.3 mg/dL [facility] Estimated GFR 78 >=60 mL/min/1. 73 m?? [facility] Comment: The eGFR was calculated using the CKD-EPI equation. As with all creatinine based estimates of kidney function, eGFR values calculated with the CKD-EPI equation are not accurate in patients with acute kidney failure, extremes of body mass or the acutely ill. [email or web address] [email or web address] [email or web address] eGFR 90 >=60 mL/min/1. 73 m?? [facility] Comment: The eGFR was calculated using the CKD-EPI equation. As with all creatinine based estimates of kidney function, eGFR values calculated with the CKD-EPI equation are not accurate in patients with acute kidney failure, extremes of body mass or the acutely ill. [email or web address] [email or web address] Blood specimen (specimen) 04/06/2018 4:52 PM EDT 04/06/2018 6:31 PM EDT Narrative Resulting Agency Comment Spec In Lab Henrietta Null MD CHEMISTRY ORDERABLES [facility] [place] [address] documented in this encounter Visit Diagnoses Diagnosis Medicare annual wellness visit, subsequent Routine general medical examination at a health care facility Intractable vomiting with nausea, unspecified vomiting type Hyperlipidemia, unspecified hyperlipidemia type documented in this encounter Care Teams Flatbed Truck Driver Relationship Specialty Start Date End Date Henrietta Null MD [facility] [place] [address] PCP - General 12/20/10 05/08/20 documented as of this encounter
--- OUTSIDE RECORDS SUMMARY | 2024-04-23 12:15 | XMS_ITS | Encounter Summary ---
Author Organization [facility] [place] [address] Care Team Providers Care Pig Furnace Operator Name Role Phone Henrietta Null MD Primary Care Provider [phone] Reason for Visit * Reason Onset Date Comments Labs Only 02/24/2018 Encounter Details Date Type Department Care Team (Late st Contact Info) Description 02/24/2018 Telephone Internal Medicine at [address] [address] Felisa Gregorio Labs Only Social History Tobacco Use Types [...] encounter Miscellaneous Notes * Telephone Encounter - Felisa Gregorio - 02/24/2018 4:31 PM EDT Message: pt is wondering if she will need lab work done for her AWV this year. If pt does need labs, she would like to come in a few days before her AWV to do them. Pt likes to get her blood drawn before eating just to make sure things come out right, so waiting until 2 in the afternoon wont work for her. Please call pt to let her know if this is something she can do Caller and relationship (if other than patient-full name): self Best time to call back: any Ok to leave a message: [y] Ok to send my- message: [] Offered Appointment: MA/Nurse contacted via: Message: y Call: n Pager: n documented in this encounter Plan of Treatment Upcoming Encounters Date Type Department Care Team (Late st Contact Info) Description 07/07/2024 11:00 AM EDT Office Visit Cardiology at [address] [place] [address] Lorena Lawrence MD [facility] [place] [address] documented as of this encounter Results * Hepatic Function Panel (04/02/2018 9:14 AM EDT) Total Protein 6.8 6.1 - 8.0 gm/dL [facility] Albumin 4.0 3.2 - 5.2 gm/dL [facility] AST 23 0 - 30 unit/L [facility] ALT 22 0 - 30 unit/L [facility] Alk Phos 93 40 - 104 unit/L [facility] Total Bilirubin 0.6 0.2 - 1.3 mg/dL [facility] Bili, Direct 0.1 0.0 - 0.3 mg/dL [facility] Blood specimen (specimen) 04/02/2018 9:14 AM EDT 04/02/2018 12:08 PM EDT Narrative Resulting Agency Comment Spec In Lab Henrietta Null MD CHEMISTRY ORDERABLES [facility] [place] [address] * Lipid Panel (04/02/2018 9:14 AM EDT) Pathologist [facility] Chol, Total 241 mg/dL [facility] Comment: Lower Risk: <200 mg/dL Average Risk: 200-239 mg/dL Higher Risk: >sd=370 mg/dL Triglycerides 105 mg/dL [facility] Comment: Average Risk/Lower Risk: <150 mg/dL Borderline High Risk: 150-199 mg/dL High Risk: 200-499 mg/dL Very High Risk: >qt=974 mg/dL HDL 60 mg/dL [facility] Comment: Males: ?? Higher Risk: <40 mg/dL Females: ?? HIgher Risk: <50 mg/dL LDL Cholesterol 160 mg/dL [facility] Comment: Lowest Risk: <100 mg/dL Lower Risk: 100-129 mg/dL Borderline High Risk: 130-159 mg/dL High Risk: 160-189 mg/dL Very High Risk: >zz=107 mg/dL Chol/HDL Ratio 4.[address] [facility] Lipid Interpretation See Note [facility] Comment: Lipid management should be guided by a patient? s ASCVD risk, goals and preferences. ACC/AHA Guidelines recommend high intensity statin if clinical ASCVD or LDL greater than or equal to 190 mg/dL. [email or web address]-[email or web address] Adults aged 40-75 with LDL 70-189 mg/dL should have their 10 year ASCVD risk estimated with the ACC/AHA ASCVD risk director river restoration http://tools.acc.org/IKCUG-Hahg-Nogignoat/ Statin should be discussed if risk greater [...] In Lab Henrietta Null MD CHEMISTRY ORDERABLES [facility] [place] [address] documented in this encounter Visit Diagnoses Diagnosis Hyperlipidemia, unspecified hyperlipidemia type documented in this encounter Care Teams Pig Furnace Operator Relationship Specialty Start Date End Date Henrietta Null MD [facility] [address] [place] [address] PCP - General 12/20/10 05/08/20 documented as of this encounter
--- OUTSIDE RECORDS SUMMARY | 2024-04-23 12:15 | XMS_ITS | Encounter Summary ---
Author Organization [facility] [place] [address] Care Team Providers Care Bleach Liquor Maker Name Role Phone Henrietta Null MD Primary Care Provider [phone] Encounter Details Date Type Department Care Team (Late st Contact Info) Description 01/06/2020 External Results Administration [facility] [place] [address] Social History Tobacco Use Types Packs/Day Years [...] AM EDT Office Visit Cardiology at [address] [place] [address] Lorena Lawrence MD [facility] [place] [address] documented as of this encounter Procedures Procedure Name Priority Date/Time Associated Diagnosis Comments ECG SCAN Routine 01/06/2020 documented in this encounter Results * Scan Doc: ECG (01/06/2020) Historical Provider MD MEDIA MGR SCAN EX T ORDR/RSLT documented in this encounter Visit Diagnoses Not on filedocumented in this encounter Care Teams Bleach Liquor Maker Relationship Specialty Start Date End Date Henrietta Null MD [facility] [address] [address] PCP - General 12/20/10 05/08/20 documented as of this encounter
--- OUTSIDE RECORDS SUMMARY | 2024-04-23 12:15 | XMS_ITS | Encounter Summary ---
Author Organization [facility] [place] [address] Care Team Providers Care Circuit Board Drafter Name Role Phone Henrietta Null MD Primary Care Provider [phone] Reason for Visit * Reason Onset Date Comments Appointment 01/07/2020 Encounter Details Date Type Department Care Team (Late st Contact Info) Description 01/07/2020 Telephone Internal Medicine at [address] [address] Frederic Ny Appointment Social History Tobacco Use Types Packs/Day [...] encounter Miscellaneous Notes * Telephone Encounter - Frederic Acevedo - 01/07/2020 2:20 PM EDT Message: Tiffani from cardiology called to schedule pt's hck . The agent scheduled for 01/17 TOV Lashay Null MD please call pt if this is not appropriate Ask caller their first and last name and relationship to the patient: Heike Best time to call back: any Ok to leave a message: yes Ok to send - message: Offered Appointment: MA/Nurse/Service Rig Operator contacted via: Message: x Call: Pager: documented in this encounter Plan of Treatment Upcoming Encounters Date Type Department Care Team (Late st Contact Info) Description 07/07/2024 11:00 AM EDT Office Visit Cardiology at [address] [facility] [place] [address] Lorena Lawrence MD [facility] [place] [address] documented as of this encounter Visit Diagnoses Not on filedocumented in this encounter Care Teams Circuit Board Drafter Relationship Specialty Start Date End Date Henrietta Null MD [facility] [address] [place] [address] PCP - General 12/20/10 05/08/20 documented as of this encounter
--- OUTSIDE RECORDS SUMMARY | 2024-04-23 12:15 | XMS_ITS | Encounter Summary ---
Author Organization [facility] [place] [address] Care Team Providers Care Rubber Extrusion Machine Operator Name Role Phone Henrietta Null MD Primary Care Provider [phone] Reason for Referral * Diagnostic Test (Routine) - Closed Specialty Diagnoses / Procedures Referred By Contac t Referred To Contact Radiology Diagnoses Osteoporosis, unspecified osteoporosis type, unspecified pathological fracture presence Procedures DXA Central Spine, Hip, and/or Whole Body (Generic) Henrietta Null MD [facility] [place] [address] [facility] Rad Xray [address] [place] [address] [place] [address] Referral ID Status Reason Start Date Expiration Date V isits Requested Visits Authorized [id number] Closed Specialty Service Requested 09/28/2019 03/18/2021 1 1 Reason for Visit * Diagnostic Test (Routine) - Closed Specialty Diagnoses / Procedures Referred By Contac t Referred To Contact Radiology Diagnoses Osteoporosis, unspecified osteoporosis type, unspecified pathological fracture presence Procedures DXA Central Spine, Hip, and/or Whole Body (Generic) Henrietta Null MD [facility] [place] [address] [facility] Rad Xray [address] [place] [address] [place] [address] Referral ID Status Reason Start Date Expiration Date V isits Requested Visits Authorized [id number] Closed Specialty Service Requested 09/28/2019 03/18/2021 1 1 Encounter Details Date Type Department Care Team (Latest Contact Info) Description 10/26/2019 7:59 AM EST - 10/26/2019 11:59 PM EST Hospital Encounter XRay at [address] [place] [address] Henrietta Null MD [facility] [place] [address] Osteoporosis, unspecified osteoporosis type, unspecified pathological fracture presence Discharge Disposition: Home Social History Tobacco Use [...] Take 1 tablet by mouth daily. 01/10/2012 cyanocobalamin (VITAMIN B-12) 1,000 mcg tablet 12/20/201006/01 documented as of this encounter Plan of Treatment Upcoming Encounters Date Type Department Care Team (Late st Contact Info) Description 07/07/2024 11:00 AM EDT Office Visit Cardiology at [address] [facility] [place] [id number] Lorena Lawrence MD [facility] [place] [address] documented as of this encounter Procedures Procedure Name Priority Date/Time Associated Diagnosis Comments DXA CENTRAL SPINE, HIP, AND/OR WHOLE BODY (GENERIC) Routine 10/26/2019 8:19 AM EST Osteoporosis, unspecified osteoporosis type, unspecified pathological fracture presence documented in this encounter Results * DXA Central Spine, Hip, and/or Whole [...] BMD measurements and plots are available in EBizimply under the imaging tab. Paper copies will be sent to providers without E-DH access. If you have received this report without the data sheet and do not have access to EBizimply, please contact Radiology Associate Director Regulatory Affairs at [phone] Friday thru Friday 8am-4pm. Thank you for letting us participate in the care of this patient. For questions regarding this report, please contact the number below. ? Narrative 10/28/2019 9:11 AM EST EXAMINATION: DXA [...] BMD measurements and plots are available in ECloudFlareunder the imaging tab. Paper copies will be sent to providers without HQ plus access.If you have received this report without the data sheet and do not haveaccess to HQ plus, please contact Radiology Associate Director Regulatory Affairs at [phone] Friday 8am-4pm. Thank you for letting us participate in the care of this patient. Forquestions regarding this report, please contact the number below. Electronically signed by: Olivia Alexander [facility]([phone]), at 10/28/2019 9:11 AM Henrietta Null MD IMG DEXA ORDERABLES documented in this encounter Visit Diagnoses Diagnosis Osteoporosis, unspecified osteoporosis type, unspecified pathological fracture presence documented in this encounter Care Teams Rubber Extrusion Machine Operator Relationship Specialty Start Date End Date Henrietta Null MD [facility] [address] [place] [address] PCP - General 12/20/10 05/08/20 documented as of this encounter
--- OUTSIDE RECORDS SUMMARY | 2024-04-23 12:15 | XMS_ITS | Encounter Summary ---
Author Organization [facility] [place] [address] Care Team Providers Care Truck Cleaner Name Role Phone Henrietta Null MD Primary Care Provider [phone] Reason for Visit * Reason Onset Date Comments Results 11/01/2019 Encounter Details Date Type Department Care Team (Late st Contact Info) Description 11/01/2019 Telephone Internal Medicine at [address] [address] Diana Nguyen Results Social History Tobacco Use Types Packs/Day Years [...] Telephone Encounter - Henrietta Null MD - 11/02/2019 3:16 PM EST Letter to pt and results sent to pt * Telephone Encounter - Gretchen Rubio RN - 11/01/2019 10:31 AM EST I spoke with Heike and read her the results of her dexa and lab results. All look good. She askedabout her Vitamin D and I told her she is within the range and she said, ok, good. Then I will start taking the D again. I had stopped it for about a week. She thanked me for the report. * Telephone Encounter - Diana Nguyen - 11/01/2019 8:04 AM EST Requesting test results: Type of Test: Dexa & labs Date of Test: 10/26/19 [place] Test was [place] [facility] Who ordered the Test: Dr. Null Caller and relationship (if other than patient-full name): self Best time to call back: any Ok to leave a message: yes Ok to send my- message no MA/Nurse contacted via: Message: x Call: Pager: documented in this encounter Plan of Treatment Upcoming Encounters Date Type Department Care Team (Late st Contact Info) Description 07/07/2024 11:00 AM EDT Office Visit Cardiology at [address] [address] Lorena Lawrence MD [facility] [place] [address] documented as of this encounter Visit Diagnoses Not on filedocumented in this encounter Care Teams Truck Cleaner Relationship Specialty Start Date End Date Henrietta Null MD [facility] [address] [place] [address] PCP - General 12/20/10 05/08/20 documented as of this encounter
--- OUTSIDE RECORDS SUMMARY | 2024-04-23 12:15 | XMS_ITS | Encounter Summary ---
Author Organization [facility] [place] [address] Care Team Providers Care Insurance Claims Processor Name Role Phone Henrietta Null MD Primary Care Provider [phone] Reason for Visit * Reason Onset Date Comments Triage 07/31/2018 Encounter Details Date Type Department Care Team (Late st Contact Info) Description 07/31/2018 Telephone Internal Medicine at [address] [address] Felisa Greogrio Triage Social History Tobacco Use Types Packs/Day [...] encounter Miscellaneous Notes * Telephone Encounter - Gretchen Rubio RN - 07/31/2018 11:47 AM EDT GIM Tick Bite Phone Triage Note Eligibility for protocol: Patient with known tick bite who wishes to consider an antibiotic to reduce the risk of Lyme disease. The patient is not eligible for the protocol if they have symptoms related to the bite other than mild itching or irritation. Description of tick and bite: [x] The tick is a deer tick. If the patient is unsure about the type of tick, describe that an unengorged deer tick is the size of pencil point, but an engorged tick can be the size of a pea. A deer tick has no white preston on its back. If there are white preston, the tick is a dog tick. [x] The tick is engorged with blood (i.e. the body is round like a ball, full of blood), OR the tick bite started at least 36 hours ago based on the patient???s suspected time and place of exposure. [x] The tick was removed <72 hours prior to the call If no to any, prophylaxis is not indicated. Proceed to patient instructions. If yes to all, continue with protocol. Does the patient have: [] , or possibly [] Renal failure [] Allergy to doxycycline or tetracycline If yes to any, prophylaxis is contraindicated; proceed to patient instructions. If no to all, give patient instructions and treat with: [x] Doxycycline 200 mg x 1 dose There are no recommended prophylactic alternatives to doxycycline. Patients with contraindications to doxycycline should not receive prophylaxis and should call to be evaluated if they develop symptoms. Patient Instructions: Removing the tick Use forceps or tweezers, pulling straight up gently but firmly. Wash the area with soap and water after tick is removed. If tick partsare left in the skin, leave them, they will normally be expelled spontaneously Symptoms to look for Itching, mild swelling and redness at the site of the tick bite are common and not worrisome. A spreading red rash at the site of the bite or elsewhere on the body, or a low grade fever or flu-like symptoms within 30 days of exposure could represent a local infection or Lyme disease. Call [facility] appointment if these symptoms occur. * Telephone Encounter - Felisa Gregorio - 07/31/2018 11:36 AM EDT Message: pt found a tick on her this morning that was engorged. Please call back to discuss Caller and relationship (if other than patient-full name): self Best time to call back: any Ok to leave a message: [] Ok to send my- message: [] Offered Appointment: MA/Nurse contacted via: Message: y Call: n Pager: n documented in this encounter Plan of Treatment Upcoming Encounters Date Type Department Care Team (Late st Contact Info) Description 07/07/2024 11:00 AM EDT Office Visit Cardiology at [address] [place] [address] Lorena Lawrence MD [facility] [place] [address] documented as of this encounter Visit Diagnoses Not on filedocumented in this encounter Care Teams Insurance Claims Processor Relationship Specialty Start Date End Date Henrietta Null MD [facility] [address] [place] [address] PCP - General 12/20/10 05/08/20 documented as of this encounter
--- OUTSIDE RECORDS SUMMARY | 2024-04-23 12:15 | XMS_ITS | Encounter Summary ---
Author Organization [facility] [place] [address] Care Team Providers Care Aerial Erector Name Role Phone Henrietta Null MD Primary Care Provider [phone] Reason for Referral * Diagnostic Test (Routine) - Closed Specialty Diagnoses / Procedures Referred By Evelio t Referred To Contact Radiology Diagnoses Osteoporosis, unspecified osteoporosis type, unspecified pathological fracture presence Procedures DXA Central Spine, Hip, and/or Whole Body (Generic) Henrietta Null MD [facility] [place] [address] [facility] Rad Xray [address] [place] [address] [place] [address] Referral ID Status Reason Start Date Expiration Date V isits Requested Visits Authorized [id number] Closed Specialty Service Requested 09/28/2019 03/18/2021 1 1 * Consultation (Routine) - Closed Specialty Diagnoses / Procedures Referred By Evelio mathis Referred To Contact Gastroenterology Diagnoses Family history of colon cancer Henrietta Null MD [facility] [place] [address] [facility] Endoscopy [address] [place] [address] Referral ID Status Reason Start Date Expiration Date V isits Requested Visits Authorized [id number] Closed Test Only 09/17/2019 09/16/2020 1 1 Reason for Visit * Reason Comments Annual Wellness Visit No specific concer ns Encounter Details Date Type Department Care Team (Late st Contact Info) Description 09/17/2019 10:20 AM EST Office Visit Internal Medicine at [address] [address] Henrietta Null MD [facility] [place] [address] Medicare annual wellness visit, subsequent; Need for prophylactic vaccination with tetanus-diphtheria (Td); Family history of colon cancer; Osteoporosis, unspecified osteoporosis type, unspecified pathological fracture presence; AK (actinic keratosis); Impacted cerumen of right ear Social History Tobacco Use Types Packs/Day Years [...] Sign Reading Time Taken Comments Blood Pressure 149/58 09/17/2019 10:07 AM EST Pulse 61 09/17/2019 10:07 AM EST Temperature 36.3 ??C (97.4 ??F) 09/17/2019 10:[address] Respiratory Rate - - Oxygen Saturation 100% 09/17/2019 10:07 AM EST Inhaled Oxygen Concentration - - Weight 53.3 kg (117 lb 9.6 oz) 09/17/2019 10:07 AM EST Height 148.1 cm (4' 10.31) 09/17/2019 10:07 AM EST Body Mass Index 24.32 09/17/2019 10:07 AM EST documented in this encounter Progress Notes * Henrietta Null MD - 09/17/2019 10:20 AM EST AWV: [id number] Chief Complaint Patient presents with ??? Annual Wellness Visit No specific concerns HEIKE RAMIRES seen today for subsequent annual wellness visit. 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 I have to work until I pass on - enjoys it as well. Feels as if she never stops moving throughout the day. She is no longer on any prescription medications. She continues to take inositol daily with complete resolution of her trigeminal neuralgia which used to be very limiting. She was on tegretol for over 30 years for it. She was previously also on boniva for severe osteoporosis, has seen endocrine and is on drug holiday. Last dexa with no change. Lowest -3.2. Denies complaints today Medical and family history reviewed. Specific active medical issues managed today are in second section of note. Annual Wellness Visit Responses: myD-H Annual Wellness Visit Responses 09/17/2019 Health in general Very Good Quality of life Very Good Physical health Very Good Mental health Very Good Satisfaction with social activities Very Good Ability to carry out social activities Very Good Ability to carry out physical activities Completely Bothered by emotional problems Never Rate of fatigue None Rate of pain 0 -No Pain PROMIS-10 Physical Health Score 61.9 PROMIS-10 Mental Health Score 56 Hearing Loss Yes Activity - low level (Bathing, Dressing, Eating, Mobility, Using toilet, Grooming) - Activity - high level (Laundry, Housekeeping, Banking, Shopping, Use phone, Food Prep, Transportation, Taking meds) - Fallen in last year No Difficulties with [...] living Sometimes Confident in managing health problems Very confident Confident filling medical forms Somewhat Medication finances No Smoking Status Never Drinking frequency Never Drinks per day 0 drinks 6+ drinks on one occasion Never Audit-C Score 0 (No Risk) 10 mins of vigorous physical activity 5 days Time spent on vigorous physical activity 60 minutes 10 mins of moderate physical activity 4 days Time spent on moderate physical activity 90 minutes or more Eat Fruit 3 - 5 times per week Eat Vegetables 1 - 3 times per day Wear Seatbelt Always Tooth or Mouth Problems No Urinary Incontinence No Sexually active No Live Alone No School - Employment Status - Hours per week - Combined Household Income - # People Supported - Who is taking survey - Providers: Dr. Joshi in Dermatology, Dr. Pina in Pulmonary Suppliers: Preventative health care DT: Tdap 12/13/08 (from scanned pcp records in [facility]) Pneumonia: 2009, 2014 Influenza:yearly Shingles: 2011, not interested in new vaccine Cigarettes: none Alcohol: none Caffeine:little Exercise: active in job, treadmill Seat Belts: consistent Helmets:consistent Cholesterol (Total/HDL/LDL): Lab Results Component Value Date CHLPL 241 04/02/2018 HDL 60 04/02/2018 TRIG 105 04/02/2018 LDLCHOL 160 04/02/2018 LDLDIRECT 183 (H) 02/16/2016 Diabetes Screening: Lab Results Component Value Date GLUCFASTING 94 03/21/2017 Optho Screening: recent Calcium/Vitamin D: adequate Colon Cancer Screening: Colonoscopy 03/12 + [facility] Osteoporosis Screening: Dexa 2017 lowest - 3.2 spine, hip within osteopenic range Breast Cancer Screening: Mammogram 2019 neg Self Breast Exam: Yes Cervical Cancer [...] Advanced Care planning: advanced directive scanned into [facility] Depression- PHQ9 Questionnaires Data (Clinic and Pt Entered): Today's value PHQ-9 QUESTIONNAIRE (AMB) 09/17/2019 PHQ - 9 Score (Clinic) - Little interest or pleasure (Clinic) - Little interest or pleasure (Patient) Not at all Down, depressed, hopeless (Clinic) - Down, depressed, hopeless (Patient) Not at all BP 149/58 (BP Location (NBP): Left arm, Patient Position: Sitting, BP Cuff Sizes: Adult (25-34 cm)) Pulse 61 Temp 36.3 ??C (97.4 ??F) (Oral) Ht 148.1 cm (4' 10.31) Wt 53.3 kg (117 lb 9.6 oz) SpO2 100% BMI 24.32 kg/m?? Body mass index is 24.32 kg/m??. Health risk assessment: (at risk for:) Average risk for age related illnesses. Risk for fall related to osteoporosis Increased risk colon ca given /[facility] Mental health risk factors: none Written screening schedule: Health Maintenance Topic Date Due ??? Hepatitis C Screening Low risk ??? Zoster vaccine (2 of 3) 03/09/2012 - pt declines ??? Colonoscopy refer ??? Breast Cancer screening 05/07/2021 ??? Tetanus vaccine 09/17/2029 ??? Pneumo vaccine (65+) Completed ??? Bone Density Scan Schedule ??? Influenza (Flu) vaccine Completed ??? Tdap adult Completed Lab Results Component Value Date CHLPL 241 04/02/2018 HDL 60 04/02/2018 TRIG 105 04/02/2018 LDLCHOL 160 04/02/2018 LDLDIRECT 183 (H) 02/16/2016 Personal Health advice: continue with current interventions. [ ] weight loss: [] physical activity: active with job. [ ] smoking cessation: [ ] fall prevention: [ ] nutrition: [ ] community based lifestyle interventions: [ ] other ACTIVE MEDICAL ISSUES Patient Active Problem List Diagnosis ??? Nevus, atypical - foot - sees derm on yearly basis. ??? Ovarian fibroma - s/p resection. No residual discomfort ??? Osteoporosis - on Drug holiday. Met with endocrine 2016 - dexa values in osteoporotic range. Onca/vit d. No fracture. + prior tegretol use- no sig change - spine much worse than the hip. ??? Trigeminal neuralgia - taking inositol with good relief, tapered off her tegretol completely! ROS: Constitutional - no fevers, chills, h No sig weight loss or gain, fatigue [...] to Visit Medication Sig Dispense Refill ??? [DISCONTINUED] promethazine (PHENERGAN) 12.[address] 1 suppository rectally every 6 hours as needed for Nausea. 12 each 0 ??? CALCIUM LACTATE ORAL Take by mouth. ??? INOSITOL ORAL Take by mouth. ??? cholecalciferol, Vitamin D3, (VITAMIN D) 1,000 unit Tab tablet Take 1 tablet by mouth daily. ??? cyanocobalamin (VITAMIN B-12) 1,000 mcg tablet ??? [DISCONTINUED] fluconazole (DIFLUCAN) 100 mg Tablet Take 1 tablet by mouth daily. (Patient not taking: Reported on 04/06/2018) 10 tablet 0 ??? [DISCONTINUED] albuterol 90 mcg/actuation HFA Aerosol Inhaler Inhale 1 puff into the lungs 4 times daily. Use with spacer (Patient not taking: Reported on 04/06/2018) 1 Inhaler 1 ??? [DISCONTINUED] fluticasone (FLONASE) 50 mcg/actuation [place], Suspension 1 spray by Each Nare route daily. (Patient not taking: Reported on 09/17/2019) 16 g 11 No current facility-administered medications on file prior to visit. Physical Exam: Vitals: 09/17/19 1007 BP: 149/58 BP Location (NBP): Left arm Patient Position: Sitting BP Cuff Sizes: Adult (25-34 cm) Pulse: 61 Temp: 36.3 ??C (97.4 ??F) TempSrc: Oral SpO2: 100% Weight: 53.3 kg (117 lb 9.6 oz) Height: 148.1 cm (4' 10.31) General - No acute distress. Appears well. ENT - Mouth dry without lesions. TM occluded on R d/t wax. Hearing decreased R hear to clicking with [...] No clubbing, cyanosis or edema. Pulses intact. Skin - 5 mm patch of scaling erythema across bridge of nose. . Assessment and Plan: Heike was seen today for annual wellness visit. Diagnoses and all orders for this visit: Medicare annual wellness visit, subsequent Need for prophylactic vaccination with tetanus-diphtheria (Td) - Td vaccine preservative free greater than or equal to 7yo IM Family history of colon cancer - Referral to Gastroenterology Osteoporosis, unspecified osteoporosis type, unspecified pathological fracture presence - DXA Central Spine, Hip, and/or Whole Body (Generic); Future - Comprehensive metabolic panel (non-fasting); Future - CBC (with Diff); Future - Vitamin D, 25-Hydroxy; Future AK (actinic keratosis) - rtc in 1 month for treatment Impacted cerumen - rtc for removal. elevated lipids - as below - pt is not interested in medications. The 10-year ASCVD risk score (Warrens DC Jr., et al., 2013) is: 19.4% Values used to calculate the score: Age: 74 years Sex: Female Is Non- : No Diabetic: No Tobacco smoker: No Systolic Blood Pressure: 149 mmHg Is BP treated: No HDL Cholesterol: 60 mg/dL Total Cholesterol: 241 mg/dL documented in this encounter Plan of Treatment Upcoming Encounters Date Type Department Care Team (Late st Contact Info) Description 07/07/2024 11:00 AM EDT Office Visit Cardiology at [address] [place] [address] Lorena Lawrence MD [facility] [place] [address] Scheduled Referrals Name Type Priority Associated Diagnoses Order Schedule Referral to Gastroenterology Outpatient Referral Routine Family history of colon cancer Ordered: 09/17/2019 documented as of this encounter Results * Vitamin D, 25-Hydroxy (10/26/2019 10:23 AM EST) 25-OH Vit D Total 70 30 - 100 ng/mL [facility] Comment: As of 2019, 25-hydroxyvitamin D testing has moved from the [facility] to the [facility]. No substantial change in measured values is expected. Blood specimen (specimen) 10/26/2019 10:23 AM EST 10/26/2019 11:49 AM EST Narrative Resulting Agency Comment Spec In Lab Henrietta Null MD CHEMISTRY ORDERABLES [facility] [place] [address] * (ABNORMAL) Comprehensive metabolic panel (non-fasting) (10/26/2019 10:23 AM EST) Glucose Lvl 91 65 - 199 mg/dL [facility] Comment:Diabetes: >=200 mg/d L plus symptoms BUN 19(H) 8 - 18 mg/dL [facility] Creatinine 0.69(L) 0.70 - 1.20 mg/dL [facility] Sodium 139 135 - 145 mmol/L [facility] Potassium 3.9 3.5 - 5.0 mmol/L [facility] Comment: Please note: ??Patients with WBC >100,000 may have falsely elevated Potassium levels. ??For accurate Potassium quantification in these patients send serum separator tube (gold top) for subsequent determinations. ??Contact the Clinical Chemistry Laboratory if there are any questions. Chloride 102 98 - 107 mmol/L [facility] CO2 26 22 - 31 mmol/L [facility] Anion Gap 11 5 - 15 mmol/L [facility] Calcium 9.4 8.5 - 10.5 mg/dL [facility] Total Protein 6.9 6.1 - 8.0 gm/dL [facility] Albumin 4.3 3.2 - 5.2 gm/dL [facility] AST 22 0 - 30 unit/L [facility] ALT 27 0 - 30 unit/L [facility] Alk Phos 108(H) 35 - 105 unit/L [facility] Total Bilirubin 0.4 0.2 - 1.3 mg/dL [facility] Estimated GFR 86 >=60 mL/min/1. 73 m?? [facility] Comment: The eGFR was calculated using the CKD-EPI equation. As with all creatinine based estimates of kidney function, eGFR values calculated with the CKD-EPI equation are not accurate in patients with acute kidney failure, extremes of body mass or the acutely ill. [email or web address] eGFR 99 >=60 mL/min/1. 73 m?? [facility] Comment: The eGFR was calculated using the CKD-EPI equation. As with all creatinine based estimates of kidney function, eGFR values calculated with the CKD-EPI equation are not accurate in patients with acute kidney failure, extremes of body mass or the acutely ill. [email or web address]/[facility] Blood specimen (specimen) 10/26/2019 10:23 AM EST 10/26/2019 11:49 AM EST Narrative Resulting Agency Comment Spec In Lab Henrietta Null MD CHEMISTRY ORDERABLES [facility] [place] [address] * DXA Central Spine, Hip, and/or Whole [...] BMD measurements and plots are available in [employer] under the imaging tab. Paper copies will be sent to providers without [facility] access. If you have received this report without the data sheet and do not have access to [employer], please contact Radiology Winding Operator at [phone] Friday thru Friday 8am-4pm. Thank you for letting us participate in the care of this patient. For questions regarding this report, please contact the number below. ? Electronically signed by: Olivia Alexander [facility] ([phone]), at 10/28/2019 9:11 AM Narrative 10/28/2019 9:11 [...] BMD measurements and plots are available in [employer] the imaging tab. Paper copies will be sent to providers without [employer] access.If you have received this report without the data sheet and do not haveaccess to [facility], please contact Radiology [facility] at [phone] Friday 8am-4pm. Thank you for letting us participate in the care of this patient. Forquestions regarding this report, please contact the number below. Electronically signed by: Olivia Alexander [facility]([phone]), at 10/28/2019 9:11 AM Henrietta Null MD IMG DEXA ORDERABLES documented in this encounter Visit Diagnoses Diagnosis Medicare annual wellness visit, subsequent Routine general medical examination at a health care facility Need for prophylactic vaccination with tetanus-diphtheria (Td) Family history of colon cancer Family history of malignant neoplasm of gastrointestinal tract Osteoporosis, unspecified osteoporosis type, unspecified pathological fracture presence AK (actinic keratosis) Actinic keratosis Impacted cerumen of right ear Impacted cerumen Osteoporosis, unspecified osteoporosis type, unspecified pathological fracture presence documented in this encounter Care Teams Aerial Erector Relationship Specialty Start Date End Date Henrietta Null MD [facility] [address] [address] PCP - General 12/20/10 05/08/20 documented as of this encounter
--- OUTSIDE RECORDS SUMMARY | 2024-04-23 12:16 | XMS_ITS | Encounter Summary ---
Author Organization [facility] [place] [address] Care Team Providers Care Grinding And Polishing Laborer Name Role Phone Henrietta Null MD Primary Care Provider [phone] Reason for Visit * Reason Comments Osteoporosis 3 month followup Encounter Details Date Type Department Care Team (Late st Contact Info) Description 05/26/2015 8:45 AM EDT Follow-Up Internal Medicine at [address] [id number] Henrietta Null MD [facility] GENER[place] [address] Trigeminal neuralgia Discharge Disposition: Home Social History Tobacco Use [...] Sign Reading Time Taken Comments Blood Pressure 111/50 05/26/2015 8:33 AM EDT Pulse 57 05/26/2015 8:33 AM EDT Temperature 36.6 ??C (97.8 ??F) 05/26/2015 8:33 AM ED T Respiratory Rate - - Oxygen Saturation 99% 05/26/2015 8:33 AM EDT Inhaled Oxygen Concentration - - Weight 53.3 kg (117 lb 9.6 oz) 05/26/2015 8:33 A M EDT Height 148.6 cm (4' 10.5) 05/26/2015 8:33 AM ED T reported Body Mass Index 24.16 05/26/2015 8:33 AM EDT documented in this encounter Progress Notes * Henrietta Null MD - 05/26/2015 9:33 AM EDT ESTABLISHED PATIENT FOLLOW-UP VISIT Chief Complaint Patient presents with ??? Osteoporosis 3 month followup Pt is a 70 y.o. female who presents for scheduled follow up visit. Issue include 1. Osteoporosis - saw endocrine, advised d/c of boniva for drug holiday given relative stabilization of dexa scan. Vit d checked - normal, spep/upep neg. 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 ? Of whether tegretol contributing. 2. Trigeminal neuralgia - down to tegretol 100 mg twice daily (1/2 tabs). No pain whatsover. Cont on inositol 3000 mg/d and feels that it is effective. Is wanting to decrease tegretol further given that it may be effecting bones. ROS: Constitutional - no fevers, chills, weight [...] to Visit Medication Sig Dispense Refill ??? TEGRETOL 200 mg Tablet Take 0.5 tablets by mouth 2 times daily. 60 tablet 5 ??? fluticasone (FLONASE) 50 mcg/actuation [place], Suspension 2 sprays by Each Nare route daily. 16 g 11 ??? albuterol (PROVENTIL HFA;VENTOLIN HFA;PROAIR) 90 mcg/actuation HFA Aerosol Inhaler Inhale 2 puffs into the lungs every 4 hours as needed for Wheezing. 1 Inhaler 1 ??? CALCIUM LACTATE ORAL Take by mouth. ??? INOSITOL ORAL Take by mouth. ??? cholecalciferol, Vitamin D3, (VITAMIN D) 1,000 unit Tab tablet Take 1 tablet by mouth daily. ??? cyanocobalamin (VITAMIN B-12) 1,000 mcg tablet No current facility-administered medications on file prior to visit. Patient Active Problem List Diagnosis Code ??? Ovarian fibroma 220 ??? Osteoporosis 733.00 ??? Trigeminal neuralgia 350.1 ??? Preventative health care V70.0 ??? Trigger fingers, left thumb and ring, right ring 727.03 ??? Nevus, atypical - foot 216.9 ??? Skin lesion of hand 709.9 ??? Other specified aftercare following surgery V58.49 Social History Narrative Lives in [place], with her . 4 children ([facility], [facility], nearby). 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 Enjoying cooking, gardening, swimming. No tob No etoh rare caffeine (tea) exercise at work only Father age 88, + cerebral aneurysm, also with AAA Mother age 40 with SLE Colon Cancer - sister Pancreatic Duct cancer? - sister, also with COPD Brother - from trauma, pt relates to etoh Sister - diverticulitis Physical Exam: Filed Vitals: 05/26/15 0833 BP: 111/50 Pulse: 57 Temp: 36.6 ??C (97.8 ??F) Height: 148.6 cm (4' 10.5) Weight: 53.343 kg (117 lb 9.6 oz) SpO2: 99% General - No acute distress. Appears well. Assessment and Plan: Heike was seen today for osteoporosis and trigeminal neuralgia. 1. Osteoporosis - cont ca/vit d, hold boniva x 2 years with repeat dexa in January 2017. 2. trigeminal neuralgia - will decrease tegretol to 50 mg twice daily. As pt has only tolerated brand name in past, will call in suspension 100mg/5 cc with pt taking 2.5 cc bid. Spoke to pharmacy Trigeminal neuralgia 15 of 20 minutes spent in direct [id number] counseling and the rest in taking history and planning management. documented in this encounter Plan of Treatment Upcoming Encounters Date Type Department Care Team (Late st Contact Info) Description 07/07/2024 11:00 AM EDT Office Visit Cardiology at [address] [facility] [place] [address] Lorena Lawrence MD [facility] [place] [address] documented as of this encounter Visit Diagnoses Diagnosis Trigeminal neuralgia documented in this encounter Care Teams Grinding And Polishing Laborer Relationship Specialty Start Date End Date Henrietta Null MD [facility] [address] [place] [address] PCP - General 12/20/10 05/08/20 documented as of this encounter
--- OUTSIDE RECORDS SUMMARY | 2024-04-23 12:16 | XMS_ITS | Encounter Summary ---
Author Organization [facility] [place] [address] Care Team Providers Care Burr Filer Name Role Phone Henrietta Null MD Primary Care Provider [phone] Reason for Referral * Diagnostic Test (Emergency) - Closed Specialty Diagnoses / Procedures Referred By Contac t Referred To Contact Radiology Diagnoses Chest tightness or pressure Exertional dyspnea Procedures CTA Chest for Pulmonary Embolus w Contrast Neal Cooper MD [facility] [place] [address] [facility] [place] [address] Referral ID Status Reason Start Date Expiration Date V isits Requested Visits Authorized [id number] Closed Specialty Service Requested 12/12/2017 12/12/2018 1 1 Reason for Visit * Diagnostic Test (Emergency) - Closed Specialty Diagnoses / Procedures Referred By Contac t Referred To Contact Radiology Diagnoses Chest tightness or pressure Exertional dyspnea Procedures CTA Chest for Pulmonary Embolus w Contrast Neal Cooper MD [facility] [place] [address] [facility] [place] [address] Referral ID Status Reason Start Date Expiration Date V isits Requested Visits Authorized [id number] Closed Specialty Service Requested 12/12/2017 12/12/2018 1 1 Encounter Details Date Type Department Care Team (Latest Contact Info) Description 12/12/2017 3:42 PM EDT - 12/12/2017 11:59 PM EDT Hospital Encounter CT Scan at [facility] [place] [address] Sotero Bentley MD [facility] [place] [address] Chest tightness or pressure; Exertional dyspnea Discharge Disposition: Home Social History Tobacco Use [...] 1 tablet by mouth daily. 01/10/2012 fluticasone (FLONASE) 50 mcg/actuation [place], Suspension 1 spray by Each Nare route daily. 16 g 11 10/20/2017 09/17/2019 cyanocobalamin (VITAMIN B-12) 1,000 mcg tablet 12/20/201006/01 documented as of this encounter Plan of Treatment Upcoming Encounters Date Type Department Care Team (Late st Contact Info) Description 07/07/2024 11:00 AM EDT Office Visit Cardiology at [address] [phone] Lorena Lawrence MD [facility] [place] [address] documented as of this encounter Procedures Procedure Name Priority Date/Time Associated Diagnosis Comments CT CHEST PULMONARY EMBOLISM W CONTRAST STAT 12/12/2017 4:33 PM EDT Chest tightness or pressure Exertional dyspnea documented in this encounter Results * CTA Chest for Pulmonary Embolus w Contrast (12/12/2017 4:33 PM EDT) Anatomical Region Laterality Modality Chest Computed Tomogra phy Impressions 12/12/2017 4:45 PM EDT No pulmonary embolism or other significant abnormality.. Narrative 12/12/2017 4:45 PM EDT EXAMINATION: CTA chest for pulmonary arteries CLINICAL HISTORY: 72 yo F with profound exertional dyspnea, chest xray clear, concerned about possibility of PE. TECHNIQUE: 3 mm thick axial contiguous sections were obtained through the chest via helical acquisition after the intravenous administration of 45 cc of Omnipaque-350. Thin-section reconstructions as well as coronal and sagittal MIP reformatted images were generated to aid in evaluation. COMPARISON: Chest radiograph 12/12/2017 FINDINGS: Pulmonary arteries: No pulmonary arterial filling defects. Other cardiovascular structures: No significant findings. Pulmonary parenchyma: Mild bibasilar atelectasis. No discrete nodule corresponding with recent chest radiograph. Airways: No significant findings. Pleura: No significant findings. Lymph nodes: No significant findings. Other mediastinal structures: No significant findings. Upper abdomen: No significant findings. Skeletal structures: No significant findings. Procedure Note Bird Pinto MD - 12/12/2017 EXAMINATION: CTA chest for pulmonary arteries CLINICAL HISTORY: 72 yo F with profound exertional dyspnea, chest xrayclear, concerned about possibility of PE. TECHNIQUE: 3 mm thick axial contiguous sections were obtained through thechest via helical acquisition after the intravenous administration of 45 cc of Omnipaque-350. Thin-section reconstructions as well as coronal andsagittal MIP reformatted images were generated to aid in evaluation. COMPARISON: Chest radiograph 12/12/2017 FINDINGS: Pulmonary arteries: No pulmonary arterial filling defects. Other cardiovascular structures: No significant findings. Pulmonary parenchyma: Mild bibasilar atelectasis. No discrete nodule corresponding with recent chest radiograph. Airways: No significant findings. Pleura: No significant findings. Lymph nodes: No significant findings. Other mediastinal structures: No significant findings. Upper abdomen: No significant findings. Skeletal structures: No significant findings. IMPRESSION No pulmonary embolism or other significant abnormality.. Sotero Bentley MD IMG CT ORDERABLES documented in this encounter Visit Diagnoses Diagnosis Chest tightness or pressure Other chest pain Exertional dyspnea Other dyspnea and respiratory abnormality documented in this encounter Administered Medications Inactive Administered Medications - up to 3 most recent administrations Medication Order MAR Action Action Date Dose Rate Site iohexol (OMNIPAQUE) 350 mg/mL solution 0-200 mL 0-200 mL, Intravenous, ONCE PRN, 1 dose, Starting on Fri12/12/17 at 1621, Until Fri12/12/17 at 1621, Per Protocol, Warning Vesicant/Irritant Medication , Radiology Contrast, Routine Given 12/12/2017 4:21 PM EDT 45 mLs documented in this encounter Care Teams Burr Filer Relationship Specialty Start Date End Date Henrietta Null MD [facility] [address] [place] [address] PCP - General 12/20/10 05/08/20 documented as of this encounter
--- OUTSIDE RECORDS SUMMARY | 2024-04-23 12:16 | XMS_ITS | Encounter Summary ---
Author Organization [facility] [place] [address] Care Team Providers Care Meteorology Teacher Name Role Phone Henrietta Null MD Primary Care Provider [phone] Reason for Visit * Reason Onset Date Comments Triage 07/17/2017 Encounter Details Date Type Department Care Team (Late st Contact Info) Description 07/17/2017 Telephone Internal Medicine at [address] [address] Jenn Norton Triage Social History Tobacco Use Types Packs/Day [...] Miscellaneous Notes * Telephone Encounter - Bruna Conner RN - 07/17/2017 1:32 PM EDT Nursing Triage Note - Tick Bite Criteria for Prophylactic Treatment: ??? Should be a deer tick ? ? Attachment should be > 36 h ??? Prophylaxis should be given within 72 h of the tick removal Size of Tick: tiny ones Length of Attachment: A few hours Length of time since Tick removed: 18 hrs Evidence of Rash: none Prophylaxis is Doxycycline 200mg X 1 Dose, observe only if Doxycycline contraindicated (, allergy, age <18) Appropriate for Treatment: Yes ( ) No (xx ) Instructions given to Patient: Identification of Tick _*_ S/S infection _*_ Local Treatment of Inflammation -------_*_ * Telephone Encounter - Jenn Norton - 07/17/2017 1:17 PM EDT Message: patient is calling stating she had two tick bites, and would like to see if she should geta prescription, please call Caller and relationship (if other than patient-full name): Best time to call back: today Ok to leave a message: [yes] Ok to send [facility] message: [] Offered Appointment: MA/Nurse contacted via: Message: x Call: Pager: documented in this encounter Plan of Treatment Upcoming Encounters Date Type Department Care Team (Late st Contact Info) Description 07/07/2024 11:00 AM EDT Office Visit Cardiology at [address] [phone] Lorena Lawrence MD [facility] [place] [address] documented as of this encounter Visit Diagnoses Not on filedocumented in this encounter Care Teams Meteorology Teacher Relationship Specialty Start Date End Date Henrietta Null MD [facility] [address] [place] [address] PCP - General 12/20/10 05/08/20 documented as of this encounter
--- OUTSIDE RECORDS SUMMARY | 2024-04-23 12:16 | XMS_ITS | Encounter Summary ---
Author Organization [facility] [place] [address] Care Team Providers Care Metal Tube Cutter Name Role Phone Henrietta Null MD Primary Care Provider [phone] Reason for Visit * Reason Comments Cough Chest/nasal congesti on. Fever. Encounter Details Date Type Department Care Team (Late st Contact Info) Description 10/01/2016 1:20 PM EST Office Visit Internal Medicine at [address] [address] Sotero Bentley MD [facility] [place] [address] CAP (community acquired pneumonia) Social History Tobacco Use Types Packs/Day Years [...] Sign Reading Time Taken Comments Blood Pressure 133/50 10/01/2016 1:06 PM EST Pulse 66 10/01/2016 1:06 PM EST Temperature 36.8 ??C (98.2 ??F) 10/01/2016 1:06 PM ES T Respiratory Rate - - Oxygen Saturation 100% 10/01/2016 1:06 PM EST Inhaled Oxygen Concentration - - Weight 55.9 kg (123 lb 3.2 oz) 10/01/2016 1:06 P M EST Height - - Body Mass Index 25.04 02/16/2016 1:44 PM EDT documented in this encounter Progress Notes * Sotero Bentley MD - 10/01/2016 1:20 PM EST ESTABLISHED PATIENT VISIT I. HISTORY a. Reason(s) for Visit: Heike Ramires 71 y.o. female who presents today due to complaint(s) of: Chief Complaint Patient presents with ??? Cough Chest/nasal congestion. Fever. b. History of Present Illness:[] Pt presenting with subjective fever, cough, and sore throat for about 1.5 weeks ago. Has not improved in any way. and grandson have similar illness. seen in ED and given abx. 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 c. Review of Systems: Constitutional -+ subjective fevers, + chills, weight loss or gain,+ fatigue Cardiovascular - No CP, palpitations, angina, KRUGER, SOB Respiratory -see HPI HEENT - see HPI Gastrointestinal - No abdominal pain, nausea, GERD, constipation, diarrhea, blood in stool Musculoskeletal - No weakness, pain at rest or with movement All other systems negative d. PMH Patient Active Problem List Diagnosis ??? Other specified aftercare following surgery [...] adequate Colon Cancer Screening: Colonoscopy 03/12 + [facility] Osteoporosis Screening: Dexa 2013, lowest - 3.1 spine, hip within osteopenic range Breast Cancer Screening: Mammogram 01/10 neg Self Breast Exam: Yes Cervical Cancer Screening: Pap smear 11/2008, never with abnl Sexual History: not sexually active Control:n/a HIV Status: unknown Advanced Directives: No ??? Ovarian fibroma ??? Osteoporosis ??? Trigeminal neuralgia Taking inositol daily and tapering down on her tegretol. Soc: Social History Substance Use Topics ??? Smoking status: Never Smoker ??? Smokeless tobacco: Never Used ??? Alcohol use No II. PHYSICAL EXAM: BP 133/50 (BP Location (NBP): Left arm, Patient Position: Sitting, BP Cuff Sizes: Adult (25-34 cm))Pulse 66 Temp 36.8 ??C (98.2 ??F) (Oral) Wt 55.9 kg (123 lb 3.2 oz) SpO2 100% BMI 25.04 kg/m2 General -Uncomfortable but No acute distress, conversing without difficulty. ENT - oropharynx without lesions. Eyes - EOMI. No scleral icterus Neck - small symmetric anterior LAD Lungs -course breath sounds throughout but noted course crackles mid axillary line. Heart - RRR, S1,S2, no murmur, gallop or rub. Extremities - No clubbing, cyanosis or edema. III. ASSESSMENT/PLAN:Heike Ramires 71 y.o. female presenting for acute respiratory illness and given exam findings I am concerned for CAP aristeo given subjective fevers. Viral illness also possible but I feel abx are warranted Heike was seen today for cough. Diagnoses and all orders for this visit: CAP (community acquired pneumonia) - Start azithromycin (ZITHROMAX) 250 mg Tablet; Day 1: Take 2 tablets daily, Day 2 - 5: Take one tablet daily Call if worsens or does not improve Meds reconciled * Izabela Purdy - 10/01/2016 1:20 PM EST ESTABLISHED PATIENT VISIT I. HISTORY a. Reason(s) for Visit: Heike Ramires 71 y.o. female who presents today due to complaint(s) of: Chief Complaint Patient presents with ??? Cough Chest/nasal congestion. Fever. b. History of Present Illness: Ms. Ramires presents with 1.5 weeks of subjective fevers, productive cough, sore throat, headaches, nasal congestion, and fatigue. Symptoms have gradually worsened sincefirst onset. She has tried mucinex and fluticasone without symptom relief. She has sick contacts inher family. Notably, her has had similar symptoms for 2+ weeks, was taken to the ER a few da ys ago, and discharged with antibiotics. Pt denies myalgias, arthralgias, chest pain, GI upset. Patient has been able to work despite feeling sick. c. Review of Systems: Constitutional - No chills, weight loss / gain, appetite change Cardiovascular - No CP, palpitations, angina, KRUGER, SOB Respiratory - No SOB, hemoptysis HEENT - No diffculty swallowing, hearing, some nasal congestion Gastrointestinal - No abdominal pain, nausea, GERD, constipation, diarrhea, blood in stool Musculoskeletal - No weakness, pain at rest or with movement All other systems negative d. [facility] Patient Active Problem List Diagnosis ??? Other specified aftercare following surgery ??? Skin lesion of hand ??? Nevus, atypical - foot ??? Trigger fingers, left thumb and ring, right ring ??? Preventative health care DT: Tdap 12/13/08 (from scanned pcp records in [facility]) Pneumovax: 2009 Influenza:2013 Shingles: 2011 Cigarettes: none Alcohol: none Caffeine:little Exercise: active in job, treadmill / Seat Belts: consistent Helmets:consistent Cholesterol (Total/HDL/LDL): Lab Results Component Value Date CHLPL 260* 01/28/2014 HDL 64 01/28/2014 TRIG 114 01/28/2014 LDLCHOL 173* 01/28/2014 Diabetes Screenin 2013 Optho Screening: recent Calcium/Vitamin D: adequate Colon Cancer Screening: Colonoscopy 03/12 + [facility] Osteoporosis Screening: Dexa 2012, lowest - 3.1 spine, hip within osteopenic range Breast Cancer Screening: Mammogram 01/10 neg Self Breast Exam: Yes Cervical Cancer Screening: Pap smear 11/2008, never with abnl Sexual History: not sexually active Control:n/a HIV Status: unknown Advanced Directives: No ??? Ovarian fibroma ??? Osteoporosis ??? Trigeminal neuralgia Taking inositol daily and tapering down on her tegretol. Soc: Social History Substance Use Topics ??? Smoking status: Never Smoker ??? Smokeless tobacco: Never Used ??? Alcohol use No II. PHYSICAL EXAM: BP 133/50 (BP Location (NBP): Left arm, Patient Position: Sitting, BP Cuff Sizes: Adult (25-34 cm))Pulse 66 Temp 36.8 ??C (98.2 ??F) (Oral) Wt 55.9 kg (123 lb 3.2 oz) SpO2 100% BMI 25.04 kg/m2 General - No acute distress, conversing without difficulty. ENT - Oropharynx with slight erythema, without exudate. Eyes - EOMI. No scleral icterus or injected conjunctiva. Neck - Cervical lymphadenopathy with tenderness on palpation, supple, no masses Lungs - Diffuse crackles with shift after coughing. Course rhonchi at R midaxillary. Heart - RRR, S1,S2, no murmur, gallop or rub. Abdomen/GI - Soft, nontender, normal active bowel sounds. Extremities - No clubbing, cyanosis or edema. Pulses intact. III. ASSESSMENT/PLAN:Heike Ramires 71 y.o. female presenting with constellation of symptoms thatare suggestive of URI or PNA. Influenza less likely as she denies myalgias / arthralgias. Patient'sclinical picture is more consistent with acute bronchitis. However, her subjective fevers, R middlelobe rhonchi, and sick contacts ( treated w/ abx for presumed PNA) warrant treatment with azithromycin. Patient instructed to return to clinic if she does not improve or feels worse. Izabela Aguirre MS4 documented in this encounter Plan of Treatment Upcoming Encounters Date Type Department Care Team (Late st Contact Info) Description 07/07/2024 11:00 AM EDT Office Visit Cardiology at [address] [phone] Lorena Lawrence MD [facility] [place] [address] documented as of this encounter Visit Diagnoses Diagnosis CAP (community acquired pneumonia) Pneumonia, organism unspecified documented in this encounter Care Teams Metal Tube Cutter Relationship Specialty Start Date End Date Henrietta Null MD [facility] [place] [address] PCP - General 12/20/10 05/08/20 documented as of this encounter
--- OUTSIDE RECORDS SUMMARY | 2024-04-23 12:16 | XMS_ITS | Encounter Summary ---
Author Organization [facility] [place] [address] Care Team Providers Care Global Risk Management Director Name Role Phone Henrietta Null MD Primary Care Provider [phone] Reason for Visit * Reason Onset Date Comments Other 03/11/2016 Encounter Details Date Type Department Care Team (Late st Contact Info) Description 03/11/2016 Telephone Internal Medicine at [address] [address] Gaurav Larkin Other Social History Tobacco Use Types Packs/Day [...] Telephone Encounter - Carol Choi RN - 03/11/2016 9:57 AM EDT Sent her to My support. * Telephone Encounter - Gaurav Larkin - 03/11/2016 9:43 AM EDT Message: Patient called to ask that Dr. Null's [facility] email from 02/19 is resent to her. Caller and relationship (if other than patient-full name): self Best time to call back: anytime Ok to leave a message: [yes] Ok to send my- message: [no] documented in this encounter Plan of Treatment Upcoming Encounters Date Type Department Care Team (Late st Contact Info) Description 07/07/2024 11:00 AM EDT Office Visit Cardiology at [address] [place] [address] Lorena Lawrence MD [facility] [place] [address] documented as of this encounter Visit Diagnoses Not on filedocumented in this encounter Care Teams Global Risk Management Director Relationship Specialty Start Date End Date Henrietta Null MD [facility] [address] [place] [address] PCP - General 12/20/10 05/08/20 documented as of this encounter
--- OUTSIDE RECORDS SUMMARY | 2024-04-23 12:16 | XMS_ITS | Encounter Summary ---
Author Organization [facility] [place] [address] Care Team Providers Care House Detective Name Role Phone Henrietta Null MD Primary Care Provider [phone] Reason for Visit * Reason Onset Date Comments Pre Procedure Call 06/28/2016 Encounter Details Date Type Department Care Team (Late st Contact Info) Description 06/28/2016 [address] at [facility] [address] [place] [phone] Carol An LPN Pre Procedure Call Social History Tobacco Use Types Packs/Day Years [...] Miscellaneous Notes * Telephone Encounter - Carol An LPN - 06/28/2016 11:28 AM EDT Pre - OP Excision Phone Call Date of Call: 06/28/16 Unable to reach Heike Ramires by phone to discuss pre-op procedure instructions. Message left on answering machine. Carol An LPN documented in this encounter Plan of Treatment Upcoming Encounters Date Type Department Care Team (Late st Contact Info) Description 07/07/2024 11:00 AM EDT Office Visit Cardiology at [address] [place] [phone] Lorena Lawrence MD [facility] [place] [address] documented as of this encounter Visit Diagnoses Not on filedocumented in this encounter Care Teams House Detective Relationship Specialty Start Date End Date Henrietta Null MD [facility] [address] [place] [address] PCP - General 12/20/10 05/08/20 documented as of this encounter
--- OUTSIDE RECORDS SUMMARY | 2024-04-23 12:16 | XMS_ITS | Encounter Summary ---
Author Organization [facility] [place] [address] Care Team Providers Care Political Science Faculty Member Name Role Phone Henrietta Null MD Primary Care Provider [phone] Reason for Visit * Reason Comments Diarrhea since Amox-clav was given on 20 of October stopped meds and has not gone away Cough dry cough Encounter Details Date Type Department Care Team (Late st Contact Info) Description 10/29/2017 3:30 PM EST Office Visit Internal Medicine at [place] [phone] Magno Gardner MD [facility] [place] [address] Cough; Antibiotic-associate d diarrhea Social History Tobacco Use Types Packs/Day Years [...] Reading Time Taken Comments Blood Pressure 122/51 10/29/2017 3:10 PM EST Pulse 68 10/29/2017 3:10 PM EST Temperature 36.7 ??C (98 ??F) 10/29/2017 3:10 PM EST Respiratory Rate - - Oxygen Saturation 97% 10/29/2017 3:10 PM EST Inhaled Oxygen Concentration - - Weight 54.4 kg (120 lb) 10/29/2017 3:10 PM EST Height 151.4 cm (4' 11.6) 10/29/2017 3:10 PM ES T Body Mass Index 23.75 10/29/2017 3:10 PM EST documented in this encounter Patient Instructions * Patient Instructions* Magno Gardner - 10/29/2017 3:30 PM EST Use Loperamide 2mg as long as you are having 3BM a day. Use Afrin for 3 days. documented in this encounter Progress Notes * Henrietta Null MD - 10/29/2017 3:30 PM EST The case was discussed at the time of the visit or immediately after the visit. The assessment and plan were formulated in discussion with me and I agree with them as documented. I have reviewed the history, physical exam, assessment and plan with the resident. Major issues discussed today: Pt returns with diarrhea which started after taking Augmentin and zpack for possible CAP. Had approx 6 episodes/day. Trial of peptobismol with out improvement. She continues to have cough however without fatigue or fevers. Diarrhea is now getting better. Denies any abdpain, n/v. On exam vital signs unremarkable but she has cough during visit. Lungs are clear and abdis soft. Will plan to start afrin, cont tesselon and flonase. Can take loperamide if continues withincreased BM. * Magno Gardner - 10/29/2017 3:30 PM EST Subjective: Patient ID: Heike Ramires is a 72 y.o. female. Chief Complaint Patient presents with ??? Diarrhea since Amox-clav was given on 20 of October stopped meds and has not gone away ??? Cough dry cough Diarrhea- Started on the 26 of October, had 6 more days left, diarrhea has continued. She is having 5-6 BM a day. She was taking pepto bismol, turned black. Stopped it. The stool has started to form today. She denies abdominal pain, vomiting, syncope, or near syncope. She stopped augmentin on October 23. She finished her z-pack. Cough- Present for 3 weeks, a lot of nasal congestion and post nasal drip. Has not started flonase.Cough is usually dry. Has not had a fever. Has been able to go to work without much fatigue. Review of Systems See HPI Objective: Vitals: 10/29/17 1510 BP: 122/51 Pulse: 68 Temp: 36.7 ??C (98 ??F) TempSrc: Oral SpO2: 97% Weight: 54.4 kg (120 lb) Height: 151.4 cm (4' 11.6) Body mass index is 23.75 kg/(m^2). Physical Exam Constitutional: She is oriented to person, place, and time. She appears well- developed and well-nourished. HENT: Head: Normocephalic and atraumatic. Eyes: Conjunctivae and EOM are normal. Pupils are equal, round, and reactive to light. Cardiovascular: Normal rate and regular rhythm. Pulmonary/Chest: Effort normal and breath sounds normal. Frequent dry cough present Abdominal: Soft. Bowel sounds are normal. Neurological: She is alert and oriented to person, place, and time. Skin: Skin is warm and dry. Psychiatric: She has a normal mood and affect. Her behavior is normal. Assessment and Plan: Heike Ramires is a 72 y.o. female here for antibiotics associated diarrhea and cough 1. Problem: Antibiotics associated diarrhea Description: Stool is now starting to form. If it worsens will test for C-dif Plan -Loperamide PRN for >3 BM a day 2. Problem: Cough Description: Likely due to bronchitis and post nasal drip Plan -Afrin x 3 days -Flonase documented in this encounter Plan of Treatment Upcoming Encounters Date Type Department Care Team (Late st Contact Info) Description 07/07/2024 11:00 AM EDT Office Visit Cardiology at [address] [place] [phone] Lorena Lawrence MD [facility] [place] [id number] documented as of this encounter Visit Diagnoses Diagnosis Cough Antibiotic-associated diarrhea Diarrhea documented in this encounter Care Teams Political Science Faculty Member Relationship Specialty Start Date End Date Henrietta Null MD [facility] [address] [place] [address] [place] [address] PCP - General 12/20/10 05/08/20 documented as of this encounter
--- OUTSIDE RECORDS SUMMARY | 2024-04-23 12:16 | XMS_ITS | Encounter Summary ---
Author Organization [facility] [place] [address] Care Team Providers Care Sloop Captain Name Role Phone Henrietta Null MD Primary Care Provider [phone] Reason for Visit * Reason Comments Annual Wellness Visit no concerns; no re fills Encounter Details Date Type Department Care Team (Late st Contact Info) Description 02/16/2016 2:00 PM EDT Office Visit Internal Medicine at [address] [address] Henrietta Null MD [facility] [place] [address] Medicare annual wellness visit, subsequent; Osteoporosis; Trigeminal neuralgia; Encounter for medication monitoring; Hyperlipidemia, unspecified hyperlipidemia type Social History Tobacco [...] Sign Reading Time Taken Comments Blood Pressure 126/59 02/16/2016 1:44 PM EDT Pulse 66 02/16/2016 1:44 PM EDT Temperature 36.5 ??C (97.7 ??F) 02/16/2016 1:44 PM ED T Respiratory Rate - - Oxygen Saturation - - Inhaled Oxygen Concentration - - Weight 55.1 kg (121 lb 6.4 oz) 02/16/2016 1:44 P M EDT Height 149.4 cm (4' 10.82) 02/16/2016 1:44 PM E DT Body Mass Index 24.67 02/16/2016 1:44 PM EDT documented in this encounter Progress Notes * Henrietta Null MD - 02/16/2016 2:34 PM EDT AWV: [id number] Chief Complaint Patient presents with ??? Annual Wellness Visit no concerns; no refills HEIKE RAMIRES seen today for subsequent annual wellness visit. Medical and family history reviewed. Specific active medical issues managed today are in second section of note. Providers: Dr. Joshi in Dermatology. Suppliers: Preventative health care DT: Tdap 12/13/08 (from scanned pcp records in [facility]) Pneumonia: 2009, 2014 Influenza:2012 Shingles: 2011 Cigarettes: none Alcohol: none Caffeine:little Exercise: active in job, treadmill 1/2 Seat Belts: consistent Helmets:consistent Cholesterol (Total/HDL/LDL): Lab Results Component Value Date CHLPL 234 (H) 01/27/2015 HDL 67 01/27/2015 TRIG 61 01/27/2015 LDLCHOL 155 (H) 01/27/2015 Diabetes Screening: Lab Results Component Value Date GLUCFASTING 103 (H) 01/27/2015 Optho Screening: recent Calcium/Vitamin D: adequate Colon Cancer Screening: Colonoscopy 03/12 + [facility] Osteoporosis Screening: Dexa 2015 lowest - 3. 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 Urinary incontinence: none Fecal incontinence: None IADL: can use telephone, finances, medications, laundry, housework, shopping, driving in familar areas. ADL: independent in bathing, dressing, transfers, toileting, grooming, feeding Mobility: the patient is ambulatory and very active Use of Assisted Devise: none Lifeline: none Nutrition/weight loss: stable. Dentition: Recent root canal. Driving: no recent accidents. Assessment of cognitive function - by direct observation and by report of others is normal Advanced Care planning: advanced directive scanned into eDH Depression- PHQ9 Questionnaires Data (Clinic and Pt Entered): Today's value PHQ-9 QUESTIONNAIRE (AMB) 02/16/2016 PHQ - 9 Score (Clinic) - Little interest or pleasure (Clinic) - Little interest or pleasure (Patient) Not at all Down, depressed, hopeless (Clinic) - Down, depressed, hopeless (Patient) Not at all Visit Vitals ??? BP 126/59 (BP Location (NBP): Right arm, Patient Position: Sitting, BP Cuff Sizes: Adult (25-34cm)) ??? Pulse 66 ??? Temp 36.5 ??C (97.7 ??F) (Oral) ??? Ht (!) 149.4 cm (4' 10.82) ??? Wt 55.1 kg (121 lb 6.4 oz) ??? BMI 24.67 kg/m2 Body mass index is 24.67 kg/(m^2). Health risk assessment: (at risk for:) Average risk for age related illnesses. Mental health risk factors: none Written screening schedule: Health Maintenance Topic Date Due ??? *PCV-13 adult 65+ (#1) completed ??? Hepatitis C screening (B. [id number]) Low risk ??? Influenza (Flu) vaccine (#1 of 1) 05/30/2015 ??? Breast Cancer Screen,every 2 yrs (40-74) Completed ??? Tetanus vaccine 12/13/2018 ??? Colonoscopy every 5 yrs 03/21/2019 ??? *PPSV23 adult 65+ Completed ??? Bone Density,female 65+ Completed - as below ??? Tdap adult Completed ??? Zoster vaccine Completed Lab Results Component Value Date CHLPL 234 (H) 01/27/2015 HDL 67 01/27/2015 TRIG 61 01/27/2015 LDLCHOL 155 (H) 01/27/2015 Personal Health advice: [ ] weight loss: [...] - on Drug holiday. Met with endocrine last year - dexa values in osteoporotic range. On ca/vit d. No fracture. Last dexa 2014 with lowest -3.0 ??? Trigeminal neuralgia - taking inositol with good relief, has been tapering on her tegretol and is now taking 50 qd, is excited about stopping completely ROS: Constitutional - no fevers, chills, No sig weight loss or gain, fatigue [...] Visit Medication Sig Dispense Refill ??? carBAMazepine (TEGRETOL) 100 mg/5 mL Suspension Take 2.5 mLs by mouth 2 times daily. 150 mL 3 ??? albuterol (PROVENTIL HFA;VENTOLIN HFA;PROAIR) 90 mcg/actuation [...] file prior to visit. Physical Exam: Vitals: 02/16/16 1344 BP: 126/59 BP Location (NBP): Right arm Patient Position: Sitting BP Cuff Sizes: Adult (25-34 cm) Pulse: 66 Temp: 36.5 ??C (97.7 ??F) TempSrc: Oral Weight: 55.1 kg (121 lb 6.4 oz) Height: (!) 149.4 cm (4' 10.82) General - No acute distress. Appears well. ENT - Mouth moist without lesions. TM clear. Eyes- EOMI. Not jaundiced. Noninjected Neck - No lymphadenopathy. No thyromegaly Lungs - Clear to auscultation. good air movement, no crackles. Breasts - No masses, no rashes, no LAD Heart - RRR, S1,S2, no audible murmur, gallop or rub. Abdomen/GI - Soft, nontender, normal active bowel sounds, neg hsm or masses. Extremities - No clubbing, cyanosis or edema. Pulses intact. Assessment and Plan: Diagnoses and all orders for this visit: Osteoporosis - on drug holiday, cont ca/vit d. Focus on weight bearing exercise. Trigeminal neuralgia - tolerating taper off of tegretol. Will cont until off. Check cb, cmp for drug effect. Orders: - CBC (with Diff); Future - Comprehensive metabolic panel (non-fasting); Future - CBC (with Diff) - Comprehensive metabolic panel (non-fasting) - Hemogram - Differential, Automated Hyperlipidemia, unspecified hyperlipidemia type - check lipid levels. Pt at otherwise low risk of cardiac event. Orders: - HDL/Cholesterol Profile; Future - LDL Cholesterol, Direct; Future - HDL/Cholesterol Profile - LDL Cholesterol, Direct documented in this encounter Plan of Treatment Upcoming Encounters Date Type Department Care Team (Late st Contact Info) Description 07/07/2024 11:00 AM EDT Office Visit Cardiology at [address] [phone] Lorena Lawrence MD [facility] [place] [address] documented as of this encounter Procedures Procedure Name Priority Date/Time Associated Diagnosis Comments HEMOGRAM Routine 02/16/2016 2:38 PM EDT Trigeminal neuralgia Encounter for medication monitoring DIFFERENTIAL, AUTOMATED Routine 02/16/2016 2:38 PM EDT Trigeminal neuralgia Encounter for medication monitoring CBC (WITH DIFF) Routine 02/16/2016 2:38 PM EDT Trigeminal neuralgia Encounter for medication monitoring LDL CHOLESTEROL, DIRECT Routine 02/16/2016 2:38 PM EDT Hyperlipidemia, unspecified hyperlipidemia type HDL/CHOL PROFILE Routine 02/16/2016 2:38 PM EDT Hyperlipidemia, unspecified hyperlipidemia type COMPREHENSIVE METABOLIC PANEL (NON-FASTING) Routine 02/16/2016 2:38 PM EDT Trigeminal neuralgia Encounter for medication monitoring documented in this encounter Results * Differential, Automated (02/16/2016 2:38 PM EDT) Neutrophils % 56.8 % [facility] Neutr Abs (ANC) 2.63 1.50 - 6.30 x10(3)/[facility] Lymphocytes % 29.2 % [facility] Lymphocytes Abs 1.4 1.0 - 3.6 x10(3)/[facility] Monocytes % 8.6 % [facility] Monocyte Abs 0.4 0.2 - 1.0 x10(3)/[facility] Eosinophils % 4.5 % [facility] Eosinophils Abs 0.2 0.0 - 0.5 x10(3)/[facility] Basophils % 0.9 % [facility] Basophils Abs 0.0 0.0 - 0.2 x10(3)/[facility] Immature Gran % 0.00 % [facility] Comment: Immature granulocytes(IG's)percentage and absolute count will include metamyelocytes, myelocytes, and promyelocytes. Blood smears from CBCs yielding IG's will be scanned manually for concordance. If this scan disagrees with the automated IG or if promyelocytes are noted, a manual differential will be performed. Anne Gran Abs 0.00 0.00 - 0.05 x10(3)/[facility] Blood specimen (specimen) 02/16/2016 2:38 PM EDT 02/16/2016 6:40 PM EDT Narrative Resulting Agency Comment Spec In Lab Henrietta Null MD HEMATOLOGY ORDERABLE S Performing Organization Address [facility]/ZIP Co de Phone Number [facility] [place] [address] * Hemogram (02/16/2016 2:38 PM EDT) WBC 4.6 4.0 - 10.0 x10(3)/[facility] RBC 4.08 3.93 - 5.22 x10(6)/[facility] Hemoglobin 12.0 11.2 - 15.7 gm/dL [facility] Hematocrit 36.5 34.0 - 45.0 % [facility] MCV 89.5 79.0 - 94.0 [facility] MCH 29.4 26.6 - 32.2 pg [facility] MCHC 32.9 32.0 - 36.5 gm/dL [facility] Platelets 215 145 - 370 x10(3)/[facility] RDWSD 41.1 35.0 - 46.0 [facility] RDWCV 12.7 10.9 - 14.4 % [facility] MPV 10.4 9.0 - 12.0 [facility] Blood specimen (specimen) 02/16/2016 2:38 PM EDT 02/16/2016 6:40 PM EDT Narrative Resulting Agency Comment Spec In Lab Henrietta Null MD HEMATOLOGY ORDERABLE S Performing Organization Address City/[facility]/ZIP Co de Phone Number [facility] [place] [address] * (ABNORMAL) LDL Cholesterol, Direct (02/16/2016 2:38 PM EDT) LDL Chol Direct 183(H) <=99 mg/dL [facility] Comment: The National Cholesterol Education Program (NCEP) has set the following guidelines for LDL Cholesterol: Reference range: ?? Optimal: ?<100 mg/dL ?? Near Optimal/Above Optimal: ?? 100-129 mg/dL ?? Borderline high: ?130-159 mg/dL ?? High: ? 160-189 mg/dL ?? Very high: ?>fj=669 mg/dL THANIA 2001: 285(19):5253-6224 Blood specimen (specimen) 02/16/2016 2:38 PM EDT 02/16/2016 6:39 PM EDT Narrative Resulting Agency Comment Spec In Lab Henrietta Null MD CHEMISTRY ORDERABLES [facility] [place] [address] * (ABNORMAL) HDL/Cholesterol Profile (02/16/2016 2:38 PM EDT) Chol, Total 264(H) <=199 mg/dL [facility] Comment: Recommendations of the NCEP Adult Treatment Panel for the following risk cutoff thresholds for the [place] population: Desirable: <200 mg/dL Borderline High: 200-239 mg/dL High: > or = 240 mg/dL HDL 70 >=40 mg/dL [facility] Comment: Reference range: ??Low HDL: ?? < 40 mg/dL ??Normal: ?40-60 mg/dL ??Desirable: > 60 mg/dL THANIA 2001; 285(19):0230-9542 Chol/HDL Ratio 3.8 ratio [facility] Comment: A Cholesterol to HDL ratio below 4:1 is desirable. ??Studies suggest that increased CAD risk occurs at ratios above 5 for females and above 6 for men. ? [place] Heart Association ??(http://www.americanheart.org) ? [place] Int Med, 1994; 121:641 ? AM J Med, 1998; 105(1A):48S Blood specimen (specimen) 02/16/2016 2:38 PM EDT 02/16/2016 6:39 PM EDT Narrative Resulting Agency Comment Spec In Lab Henrietta Null MD CHEMISTRY ORDERABLES [facility] [place] [address] * (ABNORMAL) Comprehensive metabolic panel (non-fasting) (02/16/2016 2:38 PM EDT) Glucose Lvl 91 65 - 199 mg/dL [facility] Comment:Diabetes: >=200 mg/d L plus symptoms BUN 16 8 - 18 mg/dL [facility] Creatinine 0.80 0.70 - 1.20 mg/dL [facility] Comment: Please note that the pediatric reference intervals supplied above were not validated at [facility]. Results from pediatric patients should be interpreted in conjunction to the patient's age, height and muscle mass. Sodium 139 135 - 145 mmol/L [facility] Potassium 3.8 3.5 - 5.0 mmol/L [facility] Comment: Please note: ??Patients with WBC >100,000 may have falsely elevated Potassium levels. ??For accurate Potassium quantification in these patients send serum separator tube (gold top) for subsequent determinations. ??Contact the Clinical Chemistry Laboratory if there are any questions. Chloride 101 98 - 107 mmol/L [facility] CO2 26 22 - 31 mmol/L [facility] Anion Gap 12 5 - 15 mmol/L [facility] Calcium 9.2 8.5 - 10.5 mg/dL [facility] Total Protein 6.7 6.1 - 8.0 gm/dL [facility] Albumin 4.3 3.2 - 5.2 gm/dL [facility] AST 20 0 - 30 unit/L [facility] ALT 20 0 - 30 unit/L [facility] Alk Phos 108(H) 40 - 104 unit/L [facility] Total Bilirubin 0.2 0.2 - 1.3 mg/dL [facility] Bili, Direct 0.1 0.0 - 0.3 mg/dL [facility] Estimated GFR >60 >=60 [facility] Comment: This estimated GFR (eGFR) value was calculated using the MDRD equation which has been validated on patients between the ages of 18 and 70. The MDRD should not be used to assess kidney function in patients < 18 years of age or in patients with extremes of body mass, or in patients with acute kidney failure. This value should be multiplied by 1.2 for patients. For further information please copy and paste the following links into your internet browser. http://[employer]/DHnkdep http://[employer]/DHMCnkf Blood specimen (specimen) 02/16/2016 2:38 PM EDT 02/16/2016 6:39 PM EDT Narrative Resulting Agency Comment Spec In Lab Henrietta Null MD CHEMISTRY ORDERABLES [facility] [place] [address] documented in this encounter Visit Diagnoses Diagnosis Medicare annual wellness visit, subsequent Routine general medical examination at a health care facility Osteoporosis Osteoporosis, unspecified Trigeminal neuralgia Encounter for medication monitoring Encounter for therapeutic drug monitoring Hyperlipidemia, unspecified hyperlipidemia type documented in this encounter Care Teams Sloop Captain Relationship Specialty Start Date End Date Henrietta Null MD [facility] [address] [place] [address] PCP - General 12/20/10 05/08/20 documented as of this encounter
--- OUTSIDE RECORDS SUMMARY | 2024-04-23 12:16 | XMS_ITS | Encounter Summary ---
Author Organization [facility] [address] Care Team Providers Care Ticketing Agent Name Role Phone Henrietta Null MD Primary Care Provider [phone] Encounter Details Date Type Department Care Team (Late Contact Info) Description 12/22/2017 Orders [place] [address] Yovani Swanson MD [facility] [place] [address] Chronic cough; Acute URI Social History Tobacco Use Types Packs/Day Years [...] AM EDT Office Visit Cardiology at [address] [place] [phone] Lorena Lawrence MD [facility] [place] [address] documented as of this encounter Results * Pulmonary Function Testing [...] and treat asthma.?? Guidelines from a 2011 [place] [employer] Society (ATS) executive summary on the [...] encounter Visit Diagnoses Diagnosis Chronic cough Cough Acute URI Acute upper respiratory infections of unspecified site KRUGER (dyspnea on exertion) Other dyspnea and respiratory abnormality Chronic cough Cough Acute URI Acute upper respiratory infections of unspecified site documented in this encounter Care Teams Ticketing Agent Relationship Specialty Start Date End Date Henrietta Null MD [facility] [place] [address] PCP - General 12/20/10 05/08/20 documented as of this encounter
--- OUTSIDE RECORDS SUMMARY | 2024-04-23 12:16 | XMS_ITS | Encounter Summary ---
Author Organization [facility] [place] [address] Care Team Providers Care Sewing Machines Salesperson Name Role Phone Henrietta Null MD Primary Care Provider [phone] Reason for Visit * Reason Comments Skin Check Encounter Details Date Type Department Care Team (Late st Contact Info) Description 05/17/2016 1:00 PM EDT Office Visit Dermatology at [facility] [address] [place] [address] Annmarie Haywood MD [facility] [place] [address] Neoplasm of uncertain behavior of skin; History of dysplastic nevus; Skin cancer screening Social History Tobacco Use Types Packs/Day Years Used Date Smoking Tobacco: Never Smokeless Tobacco: Never Alcohol Use Standard Drinks/Week Comments No 0 (1 standard drink = 0.6 oz pur e alcohol) Sex and Gender Information Value Date Recorded Sex Assigned at Not on file Gender Identity Not on file Sexual Orientation Not on file documented as of this encounter Progress Notes * Annmarie Haywood - 05/17/2016 1:00 PM EDT Images from the original note were not included. DERMATOLOGY - ESTABLISHED PATIENT NOTE Date of service: 05/17/2016 Heike Ramires : 1945 Dermatology Resident Note: Annmarie Haywood MD Chief Problem: skin cancer screening Ms. Heike Ramires is a 71 y.o. female. This is a new patient to me but established in dermatology last seen in 03/11/14. HPI: Mrs. Ramires 71 y/o female with a hx of several dysplastic nevi and trigeminal neuralgia who presents for a full skin exam. She has not noticed any new spots of concern. She does a lot of yard work and is outside most of the day. She wears sunscreen and does reapply, but hates to wear a hat. History of blistering sunburns? no Sunscreen use? Yes #40 SPF History of tanning bed use? no Past Skin History: A - Skin, right upper back, shave [...] (see Comment). Excised by Dr. Sánchez 04/2012 F. Right upper back, shave biopsy: Seborrheic keratosis Medical History: Patient Active Problem List Diagnosis Code ??? Ovarian fibroma D27.9 ??? Osteoporosis M81.0 ??? Trigeminal neuralgia G50.0 ??? Preventative health care Z00.00 ??? Trigger fingers, left thumb and ring, right ring M65.30 ??? 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 Skin lesion of hand L98.9 ??? Other specified aftercare following surgery Z48.89 Medications: Current Outpatient Prescriptions Medication Sig Dispense Refill ??? CARBAMAZEPINE (TEGRETOL ORAL) Take 25 g by mouth. ??? albuterol (PROVENTIL HFA;VENTOLIN HFA;PROAIR) 90 mcg/actuation [...] No current facility-administered medications for this visit. Allergies: Allergies Allergen Reactions ??? Methadone Hcl headaches ??? Morphine Sulfate Nausea And Vomiting ??? Oxidized Glycerol Triesters headache ??? Oxycodone Hcl severe headaches ??? Codeine Phosphate stomach ache Family History: No family history of melanoma or non-melanoma skin cancer ?? 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 Skin: A full skin examination was performed. This includes the head, neck, face and scalp includingbehind the ears. The chest, abdomen, back, and axillae, as well as the arms, hands, palms, fingers.Legs, feet, toes and soles were also examined. Buttocks and breasts were also examined with patientconsent. Genitalia were not examined. Specific skin findings: 1. Well healed scars as listed above in history including right upper back, right palm, left dorsalfoot, right calf and left green. NER 2. Right lateral shoulder - 3 mm pink papule with central radiating pigment under dermoscopy Photos taken with patient permission: Diagnosis/Assessment/Treatment Plan: 1. History of dysplastic nevi - no evidence of recurrence. - Emphasize sun protection 2. Nevus r/o atypia Procedure: Skin Shave removal technique Location: right lateral shoulder Discussed indications for procedure and expectations including risks and benefits. Verbal consent obtained. Skin prep with alcohol. Local anesthesia with 1% xylocaine, 1/100,000 epinephrine. A sampleof the lesion was removed by shave technique to the level of the dermis and submitted to Pathology.Hemostasis obtained (AlCl and/or electrocautery). There were no complications; the pt. tolerated the procedure well. The wound was dressed. Post-procedure expectations, wound care and activity restrictions were reviewed. Follow-up based on pathology results. OK to leave message on machine per patient. - The nature of sun-induced photo-aging and skin cancers was discussed. Discussed the importance ofsun avoidance. Sun protection strategies including protective clothing (such as awide-brimmed hat),and the use and frequent reapplication of a broad-spectrum (UVA + UVB) sunscreen with an SPF > 30 were advised. Patient was instructed to observe closely for any skin damage/changes, and call if such occurs. - Discussed warning signs for skin cancer, including the ABCDE's of melanoma. RTC per pathology otherwise in 2 years for full skin exam or sooner if needed. Instructed to call for questions, concerns. JASEN GANDHI LPN I am documenting this encounter acting as the scribe for and in the presence of Dr. Yobany Haywood MD I performed the above scribed service and agree with the accuracy of the documentation in this encounter. Resident in Dermatology [facility] Patient seen and evaluated with staff film technician: Rody Carroll MD Section of Dermatology [facility] * Rody Carroll MD - 05/17/2016 1:00 PM EDT I directly supervised Dr. Annmarie Haywood during this office visit. Dr. Haywood presented the historyand physical exam to me. I then saw and examined this patient with Dr. Haywood. We reviewed the history and pertinent details and I confirmed the physical findings. I agree with the details of the history and physical exam as documented in Dr. Haywood's note. RODY CARROLL MD Staff Physician documented in this encounter Plan of Treatment Upcoming Encounters Date Type Department Care Team (Late st Contact Info) Description 07/07/2024 11:00 AM EDT Office Visit Cardiology at [address] [place] [id number] Lorena Lawrence MD [facility] [place] [address] documented as of this encounter Procedures Procedure Name Priority Date/Time Associated Diagnosis Comments SPECIMEN TO PATHOLOGY (NON-OR) Routine 05/17/2016 2:03 PM EDT Neoplasm of uncertain behavior of skin SURGICAL PATHOLOGY REPORT Routine 05/17/2016 2:03 PM EDT documented in this encounter Results * Surgical Pathology Report (05/17/2016 2:03 PM EDT) FINAL DIAGNOSIS (AP) [id number] ?Location: [facility] The signing pathologist has (i) examined the relevant preparation(s) for the specimen(s) and (ii) rendered or confirmed the diagnosis(es). . ?Surgical Pathology DIAGNOSIS Skin, right lateral shoulder, shave removal: ??Compound nevus with atypical feature (see discussion). Electronically signed by: ??Jason CONTRERAS, PhD, Rosio Verified: ??05/27/2016 ?Dermatopatholog ist DISCUSSION The junctional and superficial dermal components show atypical features associated with dermal fibrosis, ?? suggestive of prior trauma or procedure with recurrent phenomenon. However, nuclear hyperchromasia and cytologic atypia are also seen in melanocytes in the adjacent dermis associated with solar elastosis. This lesion appears to mature with depth, consistent with nevus with atypical features. It extends close to the deep specimen edge, conservative complete excision is recommended to ensure its complete removal. Dr. Apple has reviewed this case and concurs with this diagnosis. CLINICAL INFORMATION Specimen Submitted: A - Skin, right lateral shoulder, shave removal (1) Clinical History: 3 mm pink papule with central radiating pigment on dermoscopy Clinical Diagnosis: Nevus, rule out atypia SPECIMEN PROCESSING A - Labeled/Fixative: Right lateral shoulder, formalin. Quantity/Size: Single, 0.7 x 0.6 x 0.1 cm. Tissue Description: Shave of light brown skin with a 0.3 cm brown papule. Sections/Processi ng: Inked and trisected. (T1) ??sns 05/27/2016 1:42 PM EDT [facility] 05/17/2016 2:03 PM EDT Annmarie Haywood MD PATHOLOGY/CYTOLOGY ORDERABLES Performing Organization Address City/[facility]/ZIP Co de Phone Number [facility] [place] [address] * Specimen to Pathology (NON-OR) (05/17/2016 2:03 PM EDT) AP Specimen 05/17/2016 2:03 PM EDT 05/17/2016 3:39 PM EDT Narrative [facility] - 05/17/2016 3:39 PM EDT Specimen requisition ordered. ??Separate Pathology report to follow Resulting Agency Comment Spec In Lab Rody Carroll MD PATHOLOGY/CYTOLOGY ORDERABLES Performing Organization Address City/[facility]/ZIP Co de Phone Number [facility] [place] [address] documented in this encounter Visit Diagnoses Diagnosis Neoplasm of uncertain behavior of skin History of dysplastic nevus Personal history of diseases of skin and subcutaneous tissue Skin cancer screening Screening for malignant neoplasm of the skin documented in this encounter Care Teams Sewing Machines Salesperson Relationship Specialty Start Date End Date Henrietta Null MD [facility] [place] [address] PCP - General 12/20/10 05/08/20 documented as of this encounter
--- OUTSIDE RECORDS SUMMARY | 2024-04-23 12:16 | XMS_ITS | Encounter Summary ---
Author Organization [facility] Address [facility] [place] [address] Care Team Providers Care Sugar Mill Worker Name Role Phone Henrietta Null MD Primary Care Provider [phone] Encounter Details Date Type Department Care Team (Latest Contact Info) Description 02/09/2016 1:36 PM EDT - 02/09/2016 11:59 PM EDT Hospital [place] [address] Henrietta Null MD [facility] [place] [address] Encounter for screening mammogram for breast cancer [...] 1 tablet by mouth daily. 01/10/2012 carBAMazepine (TEGRETOL) 100 mg/5 mL Suspension Take 2.5 mLs by mouth 2 times daily. 150 mL 3 05/26/2015 05/17/2016 albuterol (PROVENTIL HFA;VENTOLIN HFA;PROAIR) 90 mcg/actuation HFA Aerosol InhalerIndications:Coug h, persistent Inhale 2 puffs into the lungs every 4 hours as needed for Wheezing. 1 Inhaler 1 01/27/2015 11/18/2017 cyanocobalamin (VITAMIN B-12) 1,000 mcg tablet 12/20/201006/01 documented as of this encounter Plan of Treatment Upcoming Encounters Date Type Department Care Team (Late st Contact Info) Description 07/07/2024 11:00 AM EDT Office Visit Cardiology at [address] [place] [phone] Lorena Lawrence MD [facility] [place] [address] documented as of this encounter Procedures Procedure Name Priority Date/Time Associated Diagnosis Comments MAMMO SCREENING CAD AND RENAN BILATERAL Routine 02/09/2016 1:55 PM EDT Encounter for screening mammogram for breast cancer documented in this encounter Results * Mammo Digital Bilateral Screening With CAD and Tomosynthesis (02/09/2016 1:55 PM EDT) Anatomical Region Laterality Modality Breast Bilateral Mammography Narrative 02/12/2016 10:48 AM EDT Bilateral mammography Reason for exam: ROUTINE /U 02/10 Technique: CC and MLO views were obtained of each breast using standard 2-D mammography as well as 3-D tomosynthesis. Computer aided detection was used. Comparison: This is compared with prior images. Findings: The breasts are heterogeneously dense, which may obscure small masses. There are no suspicious microcalcifications, masses, or areas of distortion. The pattern is stable. Stable focal asymmetries bilaterally. Conclusion: No mammographic evidence of malignancy. Recommendation: Routine screening. BI-RADS Category 2: Benign findings. * ??The [place] [employer] and The Society of Breast Imaging recommend annual screening beginning at age 40 for the general female population. * ??Screening should continue as long as a woman is in good health and is expected to live 10 more years or longer. * ??All women should be familiar with the known benefits, limitations, and potential harms linked to breast cancer screening. They also should know how their breasts normally look and feel and report any breast changes to a health care provider right away. * ??Some women, because of their family history, a genetic tendency, or certain other factors, should be screened with MRIs along with mammograms. (The number of women who fall into this category is very small.) The patient and health care provider should discuss the patient history and decide if earlier screening and breast MRI are appropriate. Henrietta Null MD IMG MAMMO ORDERABLES documented in this encounter Visit Diagnoses Diagnosis Encounter for screening mammogram for breast cancer documented in this encounter Care Teams Sugar Mill Worker Relationship Specialty Start Date End Date Henrietta Null MD [facility] [address] [address] PCP - General 12/20/10 05/08/20 documented as of this encounter
--- OUTSIDE RECORDS SUMMARY | 2024-04-23 12:16 | XMS_ITS | Encounter Summary ---
Author Organization [facility] [place] [address] Care Team Providers Care Drone Pilot Name Role Phone Henrietta Null MD Primary Care Provider [phone] Reason for Visit * Reason Comments Hypoxia followup, doing bett er can breathe Encounter Details Date Type Department Care Team (Late st Contact Info) Description 12/19/2017 9:00 AM EDT Office Visit Internal Medicine at [address] [address] Neal Cooper MD [facility] [place] [address] Viral URI with cough Social History Tobacco Use Types Packs/Day [...] Sign Reading Time Taken Comments Blood Pressure 125/60 12/19/2017 8:37 AM EDT Pulse 61 12/19/2017 8:37 AM EDT Temperature - - Respiratory Rate - - Oxygen Saturation 100% 12/19/2017 8:37 AM EDT Inhaled Oxygen Concentration - - Weight 54.4 kg (120 lb) 12/19/2017 8:37 AM EDT Height 151.1 cm (4' 11.5) 12/19/2017 8:37 AM ED T Body Mass Index 23.83 12/19/2017 8:37 AM EDT documented in this encounter Progress Notes * Neal Cooper Jordin - 12/19/2017 9:00 AM EDT Established Patient Visit Internal Medicine - [facility] Subjective: Heike Ramires is a 72 y.o. year old female who returns to clinic today in follow up from recent hospitalization from 12/14-12/15 for hypoxemic respiratory distress. She was discharged with an albuterol inhaler, prednisone 40 mg QD for completion of a 5 day course (12/15-12/19), and omeprazole 40 mg QD (on presumption of GERD with potential exacerbation of chronic cough). Chief Complaint Patient presents with ??? Hypoxia followup, doing better can breathe HPI: Heike is here today for a post hospital discharge. She has been back to work. She has been using her inhaler (received with spacer, was trained in how to use it) four times a day. Today is the lastday of her prednisone course. Has noted some difficulty in getting to sleep but has been sleeping well otherwise. Still has a cough, productive of a thick whitish mucous. No shortness of breath at rest, notes milddyspnea when climbing up and down the stairs. She bought a portable monitor for SpO2 and notes thatshe has been running in the 97-100% range. Transitional Care 12/16/2017 Date of Current Admission 12/14/2017 Facility [facility] Date of most recent discharge to home 12/15/2017 Medications 12/19/17 0841 Medication Sig Taking? albuterol 90 mcg/actuation HFA Aerosol Inhaler Inhale 1 puff into the lungs 4 times daily. Use withspacer Yes omeprazole (PRILOSEC) 40 mg Capsule, Delayed Release(E.C.) Take 1 capsule by mouth daily for 30 days. Yes fluticasone (FLONASE) 50 mcg/actuation Clear, Suspension 1 spray by Each Nare route daily. Yes CALCIUM LACTATE ORAL Take by mouth. Yes INOSITOL ORAL Take by mouth. Yes cholecalciferol, Vitamin D3, (VITAMIN D) 1,000 unit Tab tablet Take 1 tablet by mouth daily. Yes cyanocobalamin (VITAMIN B-12) 1,000 mcg tablet Yes predniSONE (DELTASONE) 20 mg Tablet Take 2 tablets by mouth daily for 4 days. Patient not taking: Reported on 12/19/2017 Problem List reviewed. Review of Systems Constitutional: Positive for fatigue. Negative for chills and fever. HENT: Negative for congestion, sinus pressure and sore throat. Eyes: Negative for visual disturbance. Respiratory: Positive for cough. Negative for chest tightness, shortness of breath and wheezing. Cardiovascular: Negative for chest pain and leg swelling. Gastrointestinal: Negative for abdominal pain, blood in stool, constipation, diarrhea, nausea and vomiting. Genitourinary: Negative for dysuria and frequency. Musculoskeletal: Negative for arthralgias and myalgias. Skin: Negative for rash. Neurological: Negative for dizziness, weakness and light-headedness. OBJECTIVE BP 125/60 Pulse 61 Ht 151.1 cm (4' 11.5) Wt 54.4 kg (120 lb) SpO2 100% BMI 23.83 kg/m2 Physical Exam Gen: Adult elder female, appears comfortable and vivacious today in clinic - no dyspnea, breathing comfortably approximately 14 breaths per minute, speaking in full sentences. Eyes: Note mild conjunctival injection, no icterus, PERRL. Oropharynx: no erythema, no exudate. Neck: JVP <6 cm H2O above sternal angle Heart: regular rate, no MRG Lungs: Inspiratory crackles in bilateral lungs, (R>L) in bases bilaterally. No wheezing. Extremities: No edema, warm / well perfused. ASSESSMENT/PLAN Heike was hospitalized from 12/14-12/15 with acute hypoxemic respiratory distress, most likely precipitated by a viral upper respiratory infection with possible background of undiagnosed reactive airway disease. She responded briskly to steroids and albuterol inhaler. I do not know how much of her airway disease / inflammation is due to the acute insult of the presumed viral infection and how much is a more chronic process. She finishes her 5 day steroid course today. I have recommended she continue the QID inhaler x 1 week, then reduce to BID dosing x 1 week, then reduce to once daily x 1 week, then attempt to stop use entirely. I would like to have her follow up in 1 month for re-assessment of the followin) Symptoms off of inhaler and after anticipated resumption of viral process 2) Recommend PFTs in 30 d if exertional dyspnea persists. 3) Re-evaluate utility of Omeprazole (started on presumption of GERD in setting of cough - I tend to think the URI provides adequate explanation for the cough without recourse to GERD, but am amenable to one month trial). This patient has medical needs (which may include housing, PT/OT, counseling, medication help, etc)that require Moderate medical decision making as discussed above. I am aware of the medications given at the time of discharge from facility. These were reconciled with the patient's ambulatory med list, post discharge. Today, I will be keeping the medicatons the same as per discharge medications. Neal Cooper MD. PGY-2 Internal Medicine Pager #[phone] * Sotero Bentley MD - 12/19/2017 9:00 AM EDT The case was discussed at the time of the visit or immediately after the visit. The assessment and plan were formulated in discussion with me and I agree with them as documented. I have reviewed the history, physical exam, assessment and plan with the resident. Major issues discussed today: Pt was admitted for hypoxic respiratory distress. Treated with 5 days of prednisone and starting albuterol. Day after admission was feeling better. Completed steroids today. Using albuterol. Going back to work and feeling better. Plan: Taper down albuterol Call if not improving Will consider PFTs at f/u in one month documented in this encounter Plan of Treatment Upcoming Encounters Date Type Department Care Team (Late st Contact Info) Description 07/07/2024 11:00 AM EDT Office Visit Cardiology at [address] [place] [address] Lorena Lawrence MD [facility] [place] [address] documented as of this encounter Visit Diagnoses Diagnosis Viral URI with cough Acute upper respiratory infections of unspecified site documented in this encounter Care Teams Drone Pilot Relationship Specialty Start Date End Date Henrietta Null MD [facility] [address] [place] [address] PCP - General 12/20/10 05/08/20 documented as of this encounter
--- OUTSIDE RECORDS SUMMARY | 2024-04-23 12:16 | XMS_ITS | Encounter Summary ---
Author Organization [facility] [place] [address] Care Team Providers Care Shampooer Name Role Phone Henrietta Null MD Primary Care Provider [phone] Reason for Visit * Reason Onset Date Comments Triage 10/28/2017 Encounter Details Date Type Department Care Team (Late st Contact Info) Description 10/28/2017 Telephone Internal Medicine at [address] [address] Iraida Del Castillo Triage Social History Tobacco Use Types Packs/Day [...] Telephone Encounter - Vani Mobley RN - 10/28/2017 5:03 PM EST TC from Heike - returning call. C/O Mushy loose bowel movements every time she eats. Having movements at least 5-6 times a day. Following BRAT diet and drinking fluids. Continues to take Probiotics. Loose stools even after stopping antibiotics. Heike to be seen tomorrow at 3:[address] Gardner. * Telephone Encounter - Bruna Conner RN - 10/28/2017 4:41 PM EST TC to patient. Message left for patient to return my call. * Telephone Encounter - Iraida Del Castillo - 10/28/2017 4:13 PM EST Message: Patient is calling she is still having diarrhea that she started due to the antibiotics that she was put on for her pneumonia. Please call Caller and relationship (if other than patient-full name): Heike Best time to call back: any Ok to leave a message: [yes] Ok to send my- message: [] Offered Appointment: n MA/Nurse contacted via: Message: y Call: n Pager: [phone] documented in this encounter Plan of Treatment Upcoming Encounters Date Type Department Care Team (Late st Contact Info) Description 07/07/2024 11:00 AM EDT Office Visit Cardiology at [address] [address] Lorena Lawrence [place] [facility] [address] documented as of this encounter Visit Diagnoses Not on filedocumented in this encounter Care Teams Shampooer Relationship Specialty Start Date End Date Henrietta Null MD [facility] [address] [place] [address] PCP - General 12/20/10 05/08/20 documented as of this encounter
--- OUTSIDE RECORDS SUMMARY | 2024-04-23 12:16 | XMS_ITS | Encounter Summary ---
Author Organization [facility] [place] [address] Care Team Providers Care Sensor Operator Name Role Phone Henrietta Null MD Primary Care Provider Reason for Visit * Reason Comments Cough DX with pneunomia ba ck in September, soaked her sheets and clothes overnight sleeping with night sweats, given 2 Anti-B's w/ relief first round but no relief second round, SOB and wheezing Encounter Details Date Type Department Care Team (Late st Contact Info) Description 11/18/2017 11:40 AM EST Office [place] [address] Silvino Kyle PA [facility] [place] [address] Acute bacterial sinusitis; Cough, persistent Social History Tobacco Use Types Packs/Day Years [...] Sign Reading Time Taken Comments Blood Pressure 127/61 11/18/2017 11:13 AM EST Pulse 88 11/18/2017 11:13 AM EST Temperature 37.1 ??C (98.8 ??F) 11/18/2017 11:[address] Respiratory Rate 18 11/18/2017 11:13 AM EST Oxygen Saturation 96% 11/18/2017 11:13 AM EST Inhaled Oxygen Concentration - - Weight 54.4 kg (120 lb) 11/18/2017 11:13 AM EST Height 151.1 cm (4' 11.5) 11/18/2017 11:[address] Body Mass Index 23.83 11/18/2017 11:13 AM EST documented in this encounter Progress Notes * Silvino Kyle PA - 11/18/2017 11:40 AM EST Subjective: Patient ID: Heike Ramires is a 72 y.o. female. Chief Complaint Patient presents with ??? Cough DX with pneunomia back in September, soaked her sheets and clothes overnight sleeping with night sweats, given 2 Anti-B's w/ relief first round but no relief second round, SOB and wheezing HPI ?? Heike is a 72 y.o. F who is here today with ongoing cough and sinus pain. She states that she has had a cough since September which is consistent with the records in her chart. She notes that her cough had been persistent even after antibiotic therapy. As for the sinus pain, she notes that the pain is below the eyes. This has been present for over a week. She also had fever and chills last night with night sweats. She has some intermittent ear pain without drainage. She denies any sore throat. She was most recently on augmentin about a month ago, but she was unable to tolerate it due to diarrhea symptoms. Social History Narrative Lives in [place], with her . 4 children ([facility], [facility], nearby). 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 Enjoying cooking, gardening, swimming. No tob No etoh rare caffeine (tea) exercise at work only Father age 88, + cerebral aneurysm, also with AAA Mother age 40 with SLE Colon Cancer - sister Pancreatic Duct cancer? - sister, also with COPD Brother - from trauma, pt relates to etoh Sister - diverticulitis Review of Systems Constitutional: Negative for chills, fatigue and fever. HENT: Positive for congestion, postnasal drip, sinus pain and sinus pressure. Negative for rhinorrhea, sneezing, sore throat and voice change. Respiratory: Positive for cough. Negative for chest tightness, shortness of breath and wheezing. Cardiovascular: Negative for chest pain and palpitations. Gastrointestinal: Negative for nausea and vomiting. Musculoskeletal: Negative for myalgias. Neurological: Negative for light-headedness and headaches. Hematological: Negative for adenopathy. Objective: Visit Vitals ??? BP 127/61 (BP Location (NBP): Right arm, Patient Position: Sitting, BP Cuff Sizes: Adult (25-34cm)) ??? Pulse 88 ??? Temp 37.1 ??C (98.8 ??F) (Oral) ??? Resp 18 ??? Ht 151.1 cm (4' 11.5) ??? Wt 54.4 kg (120 lb) ??? SpO2 96% ??? BMI 23.83 kg/m2 BP Readings from Last 3 Encounters: 11/18/17 127/61 10/29/17 122/51 10/20/17 128/59 Wt Readings from Last 3 Encounters: 11/18/17 54.4 kg (120 lb) 10/29/17 54.4 kg (120 lb) 10/20/17 53.5 kg (118 lb) PHQ-9 QUESTIONNAIRE SCORE ONLY (AMB) 05/26/2015 PHQ - 9 Score (Clinic) 0 (No Depression) Some recent data might be hidden Physical Exam Constitutional: She is oriented to person, place, and time. She appears well- developed and well-nourished. HENT: Head: Normocephalic and atraumatic. Right Ear: Tympanic membrane and external ear normal. Left Ear: Tympanic membrane and external ear normal. Nose: Right sinus exhibits maxillary sinus tenderness. Right sinus exhibits no frontal sinus tenderness. Left sinus exhibits maxillary sinus tenderness. Left sinus exhibits no frontal sinus tenderness. Mouth/Throat: Oropharynx is clear and moist. No oropharyngeal exudate, posterior oropharyngeal edema or posterior oropharyngeal erythema. Eyes: Conjunctivae are normal. Pupils are equal, round, and reactive to light. Cardiovascular: Normal rate, regular rhythm and normal heart sounds. Exam reveals no gallop and no friction rub. No murmur heard. Pulmonary/Chest: Effort normal and breath sounds normal. No respiratory distress. She has no wheezes. She has no rales. Lymphadenopathy: She has no cervical adenopathy. Neurological: She is alert and oriented to person, place, and time. Skin: Skin is warm and dry. Psychiatric: She has a normal mood and affect. Her behavior is normal. Assessment and Plan: 1. Acute bacterial sinusitis Heike appears to have acute maxillary bacterial sinusitis that requires antibiotic therapy. She did not tolerate augmentin last month. Instead we will use doxycycline 100 mg BID x 7 days. We will continue the use of flonase. She will follow up with her PCP if her symptoms worsen or fail to improve. - doxycycline monohydrate (MONODOX) 100 mg Capsule; Take 1 capsule by mouth 2 times daily for 7 days. Dispense: 14 capsule; Refill: 0 2. Cough, persistent Heike has been having persistent cough for the past 2 months. There are no concerns today for pneumonia or bronchitis. There is no wheezing, rales on rhonchi on exam. She was given a prescription of tesslon for cough suppression. - benzonatate (TESSALON) 100 mg Capsule; Take 1 capsule by mouth 3 times daily as needed for Cough.Dispense: 30 tablet; Refill: 0 - An after visit summary was given to the patient - The AVS includes patient education if applicable - Counseled to follow up if symptoms worsen and as needed documented in this encounter Plan of Treatment Upcoming Encounters Date Type Department Care Team (Late st Contact Info) Description 07/07/2024 11:00 AM EDT Office Visit Cardiology at [address] [phone] Lorena Lawrence MD [facility] [place] [address] documented as of this encounter Visit Diagnoses Diagnosis Acute bacterial sinusitis Acute sinusitis, unspecified Cough, persistent Cough documented in this encounter Care Teams Sensor Operator Relationship Specialty Start Date End Date Henrietta Null MD [facility] [address] [place] [address] PCP - General 12/20/10 05/08/20 documented as of this encounter
--- OUTSIDE RECORDS SUMMARY | 2024-04-23 12:16 | XMS_ITS | Encounter Summary ---
Author Organization [facility] [place] [address] Care Team Providers Care Retail Marketing Specialist Name Role Phone Henrietta Null MD Primary Care Provider [phone] Reason for Visit * Reason Onset Date Comments Pre Procedure Call 07/01/2016 Encounter Details Date Type Department Care Team (Late st Contact Info) Description 07/01/2016 Telephone Dermatology at [facility] [address] [place] [phone] Vanesa Anna CMA Pre Procedure Call Social History Tobacco Use [...] encounter Miscellaneous Notes * Telephone Encounter - Vanesa Anna CMA - 07/01/2016 1:18 PM EDT Pre-Op excision phone call Date of Call: 07/01/16 Surgical procedure to be done: excision on the right lateral shoulder Surgical Pathology: Skin, right lateral shoulder, shave removal: 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 Spoke with Heike by phone to review the following. Review of allergies and medications: instructed to take all medications prior to procedure Does not take any blood thinners. Does not have any allergies to Lidocaine or epinephrine. Does not take antibiotics before dental procedures. Does not have any cardiac issues, murmurs or valve replacements. Does not have a pacemaker or defibrillator. Has not had a total joint replacement with in the past 2 years. Recommend that she be accompanied by someone who can drive her home if needed. Discussed length of procedure and time variables. Post operative instructions reviewed including physical limitations after procedure. Phone number given should any questions or concerns arise before or after the procedure. Heike states that she understands all of the above. documented in this encounter Plan of Treatment Upcoming Encounters Date Type Department Care Team (Late st Contact Info) Description 07/07/2024 11:00 AM EDT Office Visit Cardiology at [address] [phone] Lorena Lawrence MD [facility] [place] [address] documented as of this encounter Visit Diagnoses Not on filedocumented in this encounter Care Teams Retail Marketing Specialist Relationship Specialty Start Date End Date Henrietta Null MD [facility] [address] [place] [address] PCP - General 12/20/10 05/08/20 documented as of this encounter
--- OUTSIDE RECORDS SUMMARY | 2024-04-23 12:16 | XMS_ITS | Encounter Summary ---
Author Organization [facility] [place] [address] Care Team Providers Care Pharmacy Picking Technician Name Role Phone Henrietta uNll MD Primary Care Provider Encounter Details Date Type Department Care Team (Late st Contact Info) Description 05/29/2016 Telephone Dermatology at [facility] [address] [place] [phone] Annmarie Haywood MD [facility] [place] [address] Social History Tobacco Use Types Packs/Day Years [...] encounter Miscellaneous Notes * Telephone Encounter - Annmarie Haywood E - 05/29/2016 6:00 PM EDT Called Ms. Ramires to discuss the bx results of her right lateral shoulder, which was as follows: Skin, right lateral shoulder, shave removal: ?? 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 Electronically signed by: ??Jason CONRTERAS, PhD, Rosio Verified: ??05/27/2016 ?Dermatopathologist DISCUSSION The junctional and superficial dermal components show atypical features associated ??with dermal fibrosis, ?? suggestive of prior trauma or procedure with recurrent ??phenomenon. However, nuclear hyperchromasia and cytologic atypia are also seen in ??melanocytes in the adjacent dermis associated with solar elastosis. This lesion ??appears to mature with depth, consistent with nevus with atypical features. ??It extends close to the deep specimen edge, conservative complete excision is ??recommended to ensure its complete removal. Dr. Apple has reviewed this case and ??concurs with this diagnosis. Discussed this with the patient and recommended a complete excision to ensure complete removal. Patient understands and agrees. She was also wondering about her check that she used to pay her copay. She said she received a call that something was not filled out properly, but when she came to the office to fix it, she was told that nothing was wrong and she did not owe money. I told her I will have the custodial officer look into this for her. documented in this encounter Plan of Treatment Upcoming Encounters Date Type Department Care Team (Late st Contact Info) Description 07/07/2024 11:00 AM EDT Office Visit Cardiology at [address] [place] [phone] Lorena Lawrence MD [facility] [place] [address] documented as of this encounter Visit Diagnoses Not on filedocumented in this encounter Care Teams Pharmacy Picking Technician Relationship Specialty Start Date End Date Henrietta Null MD [facility] [address] [place] [address] PCP - General 12/20/10 05/08/20 documented as of this encounter
--- OUTSIDE RECORDS SUMMARY | 2024-04-23 12:16 | XMS_ITS | Encounter Summary ---
Author Organization [facility] [place] [address] Care Team Providers Care Stockbroker Name Role Phone Henrietta Null MD Primary Care Provider [phone] Reason for Visit * Reason Onset Date Comments Triage 10/23/2017 Encounter Details Date Type Department Care Team (Late st Contact Info) Description 10/23/2017 Telephone Internal Medicine at [address] [address] Henrietta Null MD [facility] [place] [address] Triage Social History Tobacco Use Types Packs/Day [...] Telephone Encounter - Bruna Conner RN - 10/23/2017 3:15 PM EST Per Vale, instructed to stop the Augmentin and finish the Zpak. Instructed to drink extra fluids, focus on BRAT foods until stools return to normal, and to call back if diarrhea persists with these measures. * Telephone Encounter - Bruna Conner RN - 10/23/2017 2:19 PM EST TC to patient. States fever is down to normal; cough has subsided, Tessalon helps the cough temporarily, worse when she talks a lot. Describes diarrhea every time she eats, watery and brown. No nausea, able to drink and is drinking extra fluid. Pepto bismol didn't help. Advised BRAT diet. She wants to be able to go out with for anniversary dinner in a few days. Will review with Vale. * Telephone Encounter - Marleen Huizar - 10/23/2017 11:59 AM EST Message: was put on two antibiotics and one of the side effects would be diarrhea which she is having now. Wondering what she can take for the diarrhea. Caller and relationship (if other than patient-full name): self Best time to call back: any Ok to leave a message: [y] Ok to send my- message: [n] Offered Appointment: n MA/Nurse contacted via: Message: x Call: n Pager: n documented in this encounter Plan of Treatment Upcoming Encounters Date Type Department Care Team (Late st Contact Info) Description 07/07/2024 11:00 AM EDT Office Visit Cardiology at [address] [place] [address] Lorena Lawrence MD [facility] [place] [address] documented as of this encounter Visit Diagnoses Not on filedocumented in this encounter Care Teams Stockbroker Relationship Specialty Start Date End Date Henrietta Null MD [facility] [place] [address] PCP - General 12/20/10 05/08/20 documented as of this encounter
--- OUTSIDE RECORDS SUMMARY | 2024-04-23 12:16 | XMS_ITS | Encounter Summary ---
Author Organization [facility] [place] [address] Care Team Providers Care Business Coordinator Name Role Phone Henrietta Null MD Primary Care Provider [phone] Encounter Details Date Type Department Care Team (Late st Contact Info) Description 12/16/2017 Patient Outreach Internal Medicine [facility] [place] [phone] Madhavi Pitts RN Social History Tobacco Use [...] encounter Miscellaneous Notes * Telephone Encounter - Madhavi Pitts RN - 12/16/2017 9:53 AM EDT Post Hospital Discharge Call Transitional Care 12/16/2017 Date of Current Admission 12/14/2017 [place] [facility] of most recent discharge to home 12/15/2017 Person providing information: Patient Discharge Diagnosis: hypoxia, persistent cough Health Status: (Comprehension of reason for hospitalization)Unable to breathe. Patient reported that her cough is a bit better with the steroid and the inhaler. Medication Reconciliation: New Medication started: Yes Discontinued Medication: No Adherence Issues: (financial/transportation): None Clarify Appointments: Assure that patient understands reason for followup appointments and contact information ??? PCP: Yes, 3/23/18, ??? Specialist: Yes, pending, Pulmonology ??? Diagnostic (lab/radiology) No Are coordination of discharge services (home care/DME/meals [...] AM EDT Office Visit Cardiology at [address] [phone] Lorena Lawrence MD [facility] [place] [address] documented as of this encounter Visit Diagnoses Not on filedocumented in this encounter Care Teams Business Coordinator Relationship Specialty Start Date End Date Henrietta Null MD [facility] [address] [address] PCP - General 12/20/10 05/08/20 documented as of this encounter
--- OUTSIDE RECORDS SUMMARY | 2024-04-23 12:16 | XMS_ITS | Encounter Summary ---
[place] [address] Care Team Providers Care Global President Name Role Phone Henrietta Null MD Primary Care Provider [phone] Reason for Referral * Consultation (Hospitalist (2 weeks)) - Closed Specialty Diagnoses / Procedures Referred By Contac t Referred To Contact Pulmonology Diagnoses Acute upper respiratory [place] [address] [facility] Pulmonology [address] [place] [phone] Referral ID Status Reason Start Date Expiration Date V isits Requested Visits Authorized [id number] Closed Consult, Test & Treat 12/15/2017 12/15/2018 1 1 Reason for Visit * Reason Comments Shortness of Breath * Auth/Cert Specialty Diagnoses / Procedures Referred By Contac t Referred To Contact Diagnoses Acute upper respiratory infection Hypoxia low oxygen when walking Procedures SELAM OBSVO Referral ID Status Reason Start Date Expiration Date Visits Re quested Visits Authorized [id number] 1 1 Encounter Details Date Type Department Care Team (Late st Contact Info) Description 12/14/2017 8:50 PM EDT - 12/15/2017 1:28 PM EDT Emergency [address] [phone] Trent Austin MD [address] [place] [id number] [place] [address] [place] [address] Acute upper respiratory infection Discharge Disposition: Home Social History Tobacco Use [...] Sign Reading Time Taken Comments Blood Pressure 132/59 12/15/2017 11:44 AM EDT Pulse 85 12/15/2017 11:44 AM EDT Temperature 36.4 ??C (97.5 ??F) 12/15/2017 11:44 AM E DT Respiratory Rate 20 12/15/2017 11:44 AM EDT Oxygen Saturation 92% 12/15/2017 11:44 AM EDT Inhaled Oxygen Concentration - - Weight 54.1 kg (119 lb 3.2 oz) 12/15/2017 2:23 A M EDT Height 151.4 cm (4' 11.6) 12/14/2017 6:56 PM ED T Body Mass Index 23.59 12/14/2017 6:56 PM EDT documented in this encounter Discharge Summaries * Magno Corrigan MD - 12/15/2017 1:28 PM EDT Discharge Summary Patient Name: Heike Ramires Patient Age: 72 y.o. Language: Sri Lankan Race: White Ethnicity: Not nor Admit date: 12/14/2017 Discharge date and time: 12/15/2017 Attending Physician: MAGNO CORRIGAN MD Discharge Physician: MAGNO CORRIGAN MD Follow-up Recommendations for Providers: #. Continue to assess cause of chronic cough. We have referred her to Pulmonology for PFTs. Inpatient Provider Contact Information: For questions regarding this document or issues relating to this hospitalization on the Medical Service, please contact your inpatient physician through the [facility] Vocational Evaluator . Issues afterhours and on weekends will be handled by the Hospitalist staff on-call. Discharge Diagnoses (Hospital Problems) and Secondary Diagnoses (Chronic Problems): Active Hospital Problems Diagnosis ??? Hypoxia Resolved Hospital Problems Diagnosis Date Resolved No resolved problems to display. Active Non-Hospital Problems Diagnosis ??? Other specified aftercare following surgery ??? Skin lesion of hand ??? Nevus, atypical - foot ??? Trigger fingers, left thumb and ring, right ring ??? Preventative health care ??? Ovarian fibroma ??? Osteoporosis ??? Trigeminal neuralgia History of Presentation: (per initial H&P) Heike Ramires is a 72 y.o. female with a past medical history of ovarian fibroma, osteoporosis and trigeminal neuralgia with almost 2 months of persistent shortness of breath and cough. ?? Patient symptoms started about 2 months ago with cough, shortness of breath, fever and chills. She was diagnosed with pneumonia and started on Z-Michele plus Augmentin. She finished Z-Michele but stopped Augmentin due to diarrhea. Her symptoms improved a little but later developed persistent cough with yellow mucoid sputum, postnasal drip and shortness of breath. She was given Flonase and Afrin that improved her symptoms slightly. However she did not have any more high-grade temperature and night sweats. She was seen again at her PCPs office on 11/18/2017, diagnosed with acute sinusitis and treated with doxycycline 100 mg twice daily for 7 days. She continued to have symptoms and saw her PCP on 2017. At that time she was tachypneic and tachycardic and borderline hypoxic with ambulation. Her oxygen saturations were 88-90 with ambulation at PCPs office. Chest x-ray showed no acute cardiopulmonary process. Showed 7 mm of lung nodule. There was a concern of pulmonary embolism as well, CT chest was done to rule out PE and it was unremarkable. Her labs showed mild anion gap metabolic acidosisand was referred to emergency department patient never showed up. ?? Today she presented with persistent symptoms of cough with yellowish sputum production, postnasal drip, shortness of breath with exertion. She also endorses wheezing with shortness of breath as well.Denies any chest pain although did have an episode of chest tightness few days ago. Denies any PND.However thinks may have orthopnea she used 2 pillows. Denies any weight gain or swelling of lower extremity. Denies any high-grade temperature or chills. No recent sick contacts. Denies any acid reflux symptoms. ?? She never smoked. Had secondhand tobacco exposure from her father until the age of 15. He works as a cleaning lady but denies any exposure to any fumes chemicals. No travel. No weight loss. Never hadany heart issues. ?? In the emergency department, at rest her oxygen saturation is at low 90s. With ambulation she dropped her oxygenation to 86% on room air. Chest x-ray did not show any acute pathology. She was given 1time DuoNeb treatment with some improvement in her symptoms. Hospital Course: By the morning after admission pt was starting to feel better. She noted the nebulizers helped her breathing. Her lung exam was clear and her oxygen saturation on room air was maintained in the 90s with ambulation. The cause of her chronic cough and respiratory symptoms was not entirely clear. Reactive airway disease seems very possible given allergy history and response to bronchodilators. Thus, she was treated with a short course of steroids and trained to use an inhaler. [facility] Additionally, she endorse symptoms of reflux, which could be another possible cause of her cough. We started on PPI. As above, pt was maintaining adequate sats on RA on the day of discharge. She was happy to return home and continue further evaluation as an outpatient. Vital Signs at Discharge: BP: 132/59, Heart Rate: 85, Temp: 36.4 ??C (97.5 ??F), Resp: 20, BMI (Calculated): 23.75 Height: 151.4 cm (4' 11.6) (12/14/171855) Weight: 54.1 kg (119 lb 3.2 oz) (12/15/17 0223) Functional and Cognitive Status: Stable Important Studies and Lab Data: Labs: Last 3 wbc, hgb, hct plt Recent Labs 12/14/17 2130 12/12/17 1537 WBC 6.6 9.7* HGB 12.0 12.8 HCT 36.7 39.6 PLATELET 240 260 Last 3 Lytes Recent Labs 12/14/17 2130 12/12/17 1537 03/21/17 1059 NA 141 147* 141 K 3.8 4.5 4.1 CL 102 105 102 CO2 24 23 26 BUN 17 16 15 CREATININE 0.74 0.89 0.74 Last 3 LFTs No results for input(s): AST, ALT, ALKPHOS, BILITOT, BILIDIR in the last 7068 hours. Studies: CT chest (12/12): No pulmonary embolism or other significant abnormality.. CXR (12/14): No acute cardiopulmonary process seen. Pending Studies and Lab Data: none Discharge Conditions/Prognosis: stable Discharge to: home Updated Allergies/ADRs: Allergies Allergen Reactions ??? Methadone Hcl headaches ??? Morphine Sulfate Nausea And Vomiting ??? Oxidized Glycerol Triesters headache ??? Oxycodone Hcl severe headaches ??? Codeine Phosphate stomach ache Immunizations Given this Hospitalization: Immunization History Administered Date(s) Administered ??? Influenza PF, Split 08/12/2014, 06/29/2015, 06/19/2016 ??? Influenza PF, Split (High Dose) 07/19/2013, 10/15/2017 ??? Influenza Vaccine w/Preservative, Split 10/03/2012 ??? Influenza Vaccine, Whole 08/16/2006, 05/30/2009, 06/29/2010 ??? Pneumococcal Conjugate (13 Valent) 01/27/2015 ??? Pneumococcal Polyvalent 23 06/29/2010 ??? Tdap Vaccine 12/13/2008 ??? Zoster Vaccine, Live 01/13/2012 Discharge Medications: Your Medications Notice Some of the medications listed here do not show instructions, such as how often to take the medication. Ask your doctor or nurse how to use these medications. Specifically ask about this and similar medications: cyanocobalamin (VITAMIN B- 12) 1,000 mcg tablet New Medications Dose Details albuterol 90 mcg/actuation Hfaa Inhale 1 puff into the lungs 4 times daily. Use with spacer 1 puff Quantity: 1 Inhaler Refills: 1 omeprazole 40 mg Cpdr Commonly known as: PriLOSEC Take 1 capsule by mouth daily for 30 days. 40 mg Quantity: 30 capsule Refills: 0 predniSONE 20 mg Tab Commonly known as: DELTASONE Take 2 tablets by mouth daily for 4 days. Start taking on: 12/16/2017 40 mg Quantity: 8 tablet Refills: 0 Continued medications, unchanged Dose Details CALCIUM LACTATE ORAL Take by mouth. Refills: 0 cholecalciferol (Vitamin D3) 1,000 unit Tab Commonly known as: Vitamin D Take 1 tablet by mouth daily. 1000 Units Refills: 0 fluticasone 50 mcg/actuation Spsn Commonly known as: FLONASE 1 spray by Each Nare route daily. 1 spray Quantity: 16 g Refills: 11 INOSITOL ORAL Take by mouth. Refills: 0 VITAMIN B-12 1,000 mcg Tab ?nk?wn!?? Generic drug: cyanocobalamin Refills: 0 Smoking Status at Discharge: History Smoking Status ??? Never Smoker Smokeless Tobacco ??? Never Used Instructions Given to Patient at Discharge: Patient Instructions Instruction after leaving the hospital Why you were hospitalized: cough and low oxygen. This may be due to reactive airway disease or potentially reflux. Call your doctor or seek medical attention if you develop the following: increased shortness of breath, worsening cough, chest pain, fever, or any other concerning symptoms Activity level: as tolerated Diet: no new restrictions Driving: no new restrictions Specific instructions related to your condition: #. We have prescribed your 2 medications to decrease inflammation in your lungs and open up your airways. -Prednisone: please take for 4 more days -Albuterol: Please take every 6 hours AND as needed for worsening cough or shortness of breath. #. Given your symptoms of reflux (which can also cause increased cough). We have prescribed your Omeprazole to treat reflux. #. We have referred your to Pulmonology for evaluation of cough. They should call you with an appointment in the near future. Follow-Up Appointments Future Appointments Date Time Provider Department Center 12/19/2017 9:00 AM Neal Cooper MD [facility] Your Inpatient Doctor(s) at [facility]: MAGNO CORRIGAN MD General Instructions None Future Appointments and Orders Future Appointments Provider Department Dept Phone 12/19/2017 9:00 AM Neal Cooper MD Internal Medicine at [address] [phone] Future Orders Complete By Expires Referral to Pulmonology [REF94 Custom] As directed Process Instructions: If no progress note charted, please enter Clinical details in comments. Scheduling Instructions: Comments: Please select a template from the list below: I am referring to Pulmonology my 72 y.o. female patient Heike Ramires for evaluation of chronic cough. Are all Required tests available(see list below)? no REQUIRED The following required results are available in e[facility]: Chest X-ray, CBC w/Differential, and Spirometry. CBC Result: Lab Results Component Value Date WBC 6.6 12/14/2017 RBC 4.14 12/14/2017 HGB 12.0 12/14/2017 HCT 36.7 12/14/2017 MCV 88.6 12/14/2017 MCH 29.0 12/14/2017 MCHC 32.7 12/14/2017 RDWSD 42.0 12/14/2017 RDWCV 12.8 12/14/2017 PLATELET 240 12/14/2017 MPV 9.7 12/14/2017 NEUTROABS 3.50 12/14/2017 X-ray Chest PA and Lateral Xr Chest Pa & Lateral (generic) Result Date: 12/15/2017 EXAMINATION: XR CHEST PA AND LATERAL (GENERIC) CLINICAL HISTORY: persistent cough and dyspnea TECHNIQUE: PA and lateral views of the chest. COMPARISON: 12/14/2010. FINDINGS: Linear scarring versus atelectasis at the right base as well as an approximately 7 mm nodular opacity on the frontal projection, not definitely present on the lateral view, but new from the 2010 chest radiograph. No other interval pulmonary findings identified. The cardiomediastinal silhouette, [place], pulmonary vessels, and pleura are within normal limits. No significant interval osseous findings are seen. 1. No acute-appearing cardiopulmonary pathology. 2. Unexpected finding. 7 mm nodular opacity seen on the frontal projection by the dome of the right hemidiaphragm, question pulmonary nodule. Neoplasmnot excluded. Confirmation of further evaluation with CT recommended. Xr Chest Pa & Lateral (generic) Result Date: 12/14/2017 EXAMINATION: XR CHEST PA LATERAL CLINICAL HISTORY: Cough, SOB TECHNIQUE: Frontal and lateral COMPARISON: Chest radiographs and CT December 12, 2017. FINDINGS: Mild streaky basilar subsegmental atelectasis and/or scarring. No confluent airspace opacity, pleural effusion, or pneumothorax definitively identified. Cardiomediastinal contours within normal limits for age. No acute cardiopulmonary process seen. The most current assessment of this problem can be found in the note dated 12/15/2017 My clinical question: Pt with 2 months of cough concerning for reactive airway disease vs reflux. Would benefit from PFTs. Pending specialist evaluation, I anticipate (Select one): [X] Consultation, Recommendations & Return to Primary Care Do not type below here [id number] Questions: My question or request is: See comment Discharge References/Attachments None documented in this encounter Discharge Instructions * Discharge Instructions* Magno Corrigan MD - 12/15/2017 11:17 AM EDT * Patient Instructions* Magno Corrigan MD - 12/15/2017 11:17 AM EDT Instruction after leaving the hospital Why you were hospitalized: cough and low oxygen. This may be due to reactive airway disease or potentially reflux. Call your doctor or seek medical attention if you develop the following: increased shortness of breath, worsening cough, chest pain, fever, or any other concerning symptoms Activity level: as tolerated Diet: no new restrictions Driving: no new restrictions Specific instructions related to your condition: #. We have prescribed your 2 medications to decrease inflammation in your lungs and open up your airways. -Prednisone: please take for 4 more days -Albuterol: Please take every 6 hours AND as needed for worsening cough or shortness of breath. #. Given your symptoms of reflux (which can also cause increased cough). We have prescribed your Omeprazole to treat reflux. #. We have referred your to Pulmonology for evaluation of cough. They should call you with an appointment in the near future. Follow-Up Appointments Future Appointments Date Time Provider Department Center 12/19/2017 9:00 AM Neal Cooper MD [facility] Your Inpatient Doctor(s) at [facility]: MAGNO CORRIGAN MD documented in this encounter Medications at Time of Discharge Medication Sig Dispensed Refills Start Date End Date CALCIUM LACTATE ORAL Take 1 tablet by mouth daily. INOSITOL ORAL Take 2 tablets by mouth 2 times daily. cholecalciferol, Vitamin D3, (VITAMIN D) 1,000 unit Tab tabletIndications:Osteo penia Take 1 tablet by mouth daily. 01/10/2012 predniSONE (DELTASONE) 20 mg Tablet Take 2 tablets by mouth daily for 4 days. 8 tablet 12/16/2017 12/20/2017 omeprazole (PRILOSEC) 40 mg Capsule, Delayed Release(E.C.) Take 1 capsule by mouth daily for 30 days. 30 capsule 12/15/2017 01/14/2018 albuterol 90 mcg/actuation HFA Aerosol Inhaler Inhale 1 puff into the lungs 4 times daily. Use with spacer 1 Inhaler 1 12/15/2017 09/17/2019 fluticasone (FLONASE) 50 mcg/actuation [place], Suspension 1 spray by Each Nare route daily. 16 g 11 10/20/2017 09/17/2019 cyanocobalamin (VITAMIN B-12) 1,000 mcg tablet 12/20/201006/01 documented as of this encounter Progress Notes * Michael Slater RN - 12/15/2017 1:28 PM EDT Pt discharged home. PIV removed and intact. Pt ambulated out in hallway on RA with SpO2 91% and above. Inhaler teaching performed. * Enrico Fuentes OT - 12/15/2017 11:05 AM EDT Chart reviewed and orders received. Patient independent with ADLS and mobility. We will monitor till d/c. Enrico Fuentes OTR/L [id number] documented in this encounter H&P Notes * Wai Barclay - 12/15/2017 1:07 AM EDT Inpatient Hospital Medicine - Admission Note Problem List: Active Hospital Problems Diagnosis ??? Hypoxia Resolved Hospital Problems Diagnosis Date Resolved No resolved problems to display. Active Non-Hospital Problems Diagnosis ??? Other specified aftercare following surgery ??? Skin lesion of hand ??? Nevus, atypical - foot ??? Trigger fingers, left thumb and ring, right ring ??? Preventative health care ??? Ovarian fibroma ??? Osteoporosis ??? Trigeminal neuralgia ID: 72 y.o. Female presents to [facility] with persistent cough and SOB History of Present Illness: DESIREE Ramires is a 72 y.o. female with a past medical history of ovarian fibroma, osteoporosis and trigeminal neuralgia with almost 2 months of persistent shortness of breath and cough. Patient symptoms started about 2 months ago with cough, shortness of breath, fever and chills. She was diagnosed with pneumonia and started on Z-Michele plus Augmentin. She finished Z-Michele but stopped Augmentin due to diarrhea. Her symptoms improved a little but later developed persistent cough with yellow mucoid sputum, postnasal drip and shortness of breath. She was given Flonase and Afrin that improved her symptoms slightly. However she did not have any more high-grade temperature and night sweats. She was seen again at her PCPs office on 11/18/2017, diagnosed with acute sinusitis and treated with doxycycline 100 mg twice daily for 7 days. She continued to have symptoms and saw her PCP on 2017. At that time she was tachypneic and tachycardic and borderline hypoxic with ambulation. Her oxygen saturations were 88-90 with ambulation at PCPs office. Chest x-ray showed no acute cardiopulmonary process. Showed 7 mm of lung nodule. There was a concern of pulmonary embolism as well, CT chest was done to rule out PE and it was unremarkable. Her labs showed mild anion gap metabolic acidosisand was referred to emergency department patient never showed up. Today she presented with persistent symptoms of cough with yellowish sputum production, postnasal drip, shortness of breath with exertion. She also endorses wheezing with shortness of breath as well.Denies any chest pain although did have an episode of chest tightness few days ago. Denies any PND.However thinks may have orthopnea she used 2 pillows. Denies any weight gain or swelling of lower extremity. Denies any high-grade temperature or chills. No recent sick contacts. Denies any acid reflux symptoms. She never smoked. Had secondhand tobacco exposure from her father until the age of 15. He works as a cleaning lady but denies any exposure to any fumes chemicals. No travel. No weight loss. Never hadany heart issues. In the emergency department, at rest her oxygen saturation is at low 90s. With ambulation she dropped her oxygenation to 86% on room air. Chest x-ray did not show any acute pathology. She was given 1time DuoNeb treatment with some improvement in her symptoms. Review of Systems: Review of Systems 10 point review of system is negative other than HPI Past Medical and Surgical History: Past Medical History: Diagnosis Date ??? Dysplastic nevus Past Surgical History: Procedure Laterality Date ??? FACIAL NERVE DECOMPRESSION 07/26/2009 Micraovascular decompression for trigeminal neuralgia ??? PRO COLONOSCOPY, REMV LESN, SNARE 03/21/2014 COLONOSCOPY, POLYPECTOMY, REMOVAL LESION BY SNARE performed by Yareli Talley MD at [facility] ??? PRO REMOVAL OF OVARY/TUBE(S) 01/07/2011 ??SALPINGO-OOPHORECTOMY, UNILATERAL OR TERESA performed by JOSSUE PEREZ at [facility] Prior To Admission Medications: (Not in a hospital admission) Allergies: Allergies Allergen Reactions ??? Methadone Hcl headaches ??? Morphine Sulfate Nausea And Vomiting ??? Oxidized Glycerol Triesters headache ??? Oxycodone Hcl severe headaches ??? Codeine Phosphate stomach ache Family History: Family History Problem Relation Age of Onset ??? Aneurysm Father cerebral aneurysm ??? Abdominal Aortic Aneurysm Father ??? Lupus Mother ??? Colorectal Cancer Sister ??? Pancreatic Cancer Sister ?pancreatic duct CA ??? Chronic Obstructive Pulmonary Disease Sister ??? * Sister diverticulitis ??? Breast Cancer Neg Hx Social History and Habits: Social History Social History ??? Marital status: Spouse name: N/A ??? Number of children: N/A ??? Years of education: N/A Occupational History ??? Not on file. Social History Main Topics ??? Smoking status: Never Smoker ??? Smokeless tobacco: Never Used ??? Alcohol use No ??? Drug use: No ??? Sexual activity: Yes Partners: Male Other Topics Concern ??? Not on file Social History Narrative Lives in [place], with her . 4 children ([place], [facility], [facility], nearby). 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 Enjoying cooking, gardening, swimming. No tob No etoh rare caffeine (tea) exercise at work only Father age 88, + cerebral aneurysm, also with AAA Mother age 40 with SLE Colon Cancer - sister Pancreatic Duct cancer? - sister, also with COPD Brother - from trauma, pt relates to etoh Sister - diverticulitis Immunizations: Immunization History Administered Date(s) Administered ??? Influenza PF, Split 08/12/2014, 06/29/2015, 06/19/2016 ??? Influenza PF, Split (High Dose) 07/19/2013, 10/15/2017 ??? Influenza Vaccine w/Preservative, Split 10/03/2012 ??? Influenza Vaccine, Whole 08/16/2006, 05/30/2009, 06/29/2010 ??? Pneumococcal Conjugate (13 Valent) 01/27/2015 ??? Pneumococcal Polyvalent 23 06/29/2010 ??? Tdap Vaccine 12/13/2008 ??? Zoster Vaccine, Live 01/13/2012 Physical Exam: Last Set of Vitals and range of vitals over past 24 hours: Last value Range last 24 hrs Temperature Temp: 37 ??C (98.6 ??F) Temp: [36.8 ??C (98.2 ??F)-37 ??C (98.6 ??F)] Heart Rate Heart Rate: 65 Heart Rate: [65-85] Blood Pressure BP: 114/63 BP: (114-122)/(63-79) Respiratory Rate Resp: 17 Resp: [17-23] SpO2 SpO2: 92 % SpO2: [92 %-95 %] Body mass index is 23.75 kg/(m^2). Physical Exam Nursing notes reviewed General: Patient is in no acute distress HEENT: Minimal pharyngeal erythema, PERRLA, EOMI Neck: Supple, no JVD Lungs: Coarse breath sounds, faint expiratory wheeze is slightly prolonged expiratory phase Heart: Regular rate and rhythm, no murmur or bruit Abdomen: Nontender, nondistended Musculoskeletal: No deformity or lower extremity edema Skin: No rash Neuro: No focal deficit Laboratory (Last 24 Hours): Recent Results (from the past 24 hour(s)) Basic Metabolic Panel (non-fasting) Result Value Ref Range Glucose Lvl 98 65 - 199 mg/dL BUN 17 8 - 18 mg/dL Creatinine 0.74 0.70 - 1.20 mg/dL Sodium 141 135 - 145 mmol/L Potassium 3.8 3.5 - 5.0 mmol/L Chloride 102 98 - 107 mmol/L CO2 24 22 - 31 mmol/L Anion Gap 15 5 - 15 mmol/L Calcium 8.6 8.5 - 10.5 mg/dL Estimated GFR >60 >=60 Hemogram Result Value Ref Range WBC 6.6 4.0 - 9.5 x10(3)/mcL RBC 4.14 4.00 - 5.21 x10(6)/mcL Hemoglobin 12.0 11.7 - 15.5 gm/dL Hematocrit 36.7 35.7 - 45.8 % MCV 88.6 82.6 - 94.4 fL MCH 29.0 27.1 - 32.0 pg MCHC 32.7 31.7 - 35.0 gm/dL Platelets 240 145 - 357 x10(3)/mcL RDWSD 42.0 37.0 - 46.0 fL RDWCV 12.8 11.5 - 14.1 % MPV 9.7 7.6 - 12.9 fL nRBC % Auto 0.0 % nRBC Abs Auto 0.000 0.000 - 0.000 x10(3)/mcL Differential, Automated Result Value Ref Range Neutrophils % 53.4 % Neutr Abs (ANC) 3.50 1.70 - 6.10 x10(3)/mcL Lymphocytes % 28.1 % Lymphocytes Abs 1.8 0.9 - 3.2 x10(3)/mcL Monocytes % 10.4 % Monocyte Abs 0.7 0.3 - 0.9 x10(3)/mcL Eosinophils % 6.9 % Eosinophils Abs 0.4 0.0 - 0.4 x10(3)/mcL Basophils % 0.9 % Basophils Abs 0.1 0.0 - 0.1 x10(3)/mcL Immature Gran % 0.30 % Anne Gran Abs 0.02 0.00 - 0.04 x10(3)/mcL Blue Tube HOLD Result Value Ref Range Blue Hold Sample in lab. Gold Tube HOLD Result Value Ref Range Gold Hold Sample in lab. BLOOD GAS 2 VENOUS Result Value Ref Range pH Danilo 7.39 7.32 - 7.42 pCO2 Danilo 39 (L) 41 - 51 mmHg pO2 Danilo 40 25 - 40 mmHg HCO3 Danilo 23.4 mmol/L BE Danilo -1.5 mmol/L Hgb Blood Gas 13.2 11.7 - 15.5 gm/dL O2HB Danilo 73.1 % COHB Danilo 0.8 % METHB Danilo 0.3 <=1.5 % Na Whole Blood 140 135 - 145 mmol/L K Whole Blood 3.8 3.5 - 5.0 mmol/L ICa Whole Blood 1.17 1.15 - 1.33 mmol/L CL Whole Blood 108 (H) 98 - 107 mmol/L Gluc Whole Bld 96 65 - 199 mg/dL Lactate WB 1.1 0.5 - 2.2 mmol/L BGas Source Venous Radiology: CXR - IMPRESSION No acute cardiopulmonary process seen. Other Studies: EKG - Normal sinus rhythm Low voltage QRS Nonspecific ST abnormality Abnormal ECG When compared with ECG of 07-JAN-2011 12:11, QT has shortened Assessment: Heike Ramires is a 72 y.o. female with a past medical history of ovarian fibroma, osteoporosis and trigeminal neuralgia with almost 2 months of persistent shortness of breath and cough.In the emergency department, at rest her oxygen saturation is at low 90s. With ambulation she dropped her oxygenation to 86% on room air. Chest x-ray did not show any acute pathology. She was given 1 time DuoNebtreatment with some improvement in her symptoms. She has an extensive workup as an outpatient. Has finished 2 courses of antibiotics. But she continued to have symptoms. I think her symptoms are due to upper airway cough syndrome and reactive airway disease due to recent URI with prolonged course. Tachypnea and tachycardia is likely due to ambulatory hypoxia as she is very comfortable and stable at rest and evaluation. Pulmonary embolism has been ruled out. Chest x-ray without any acute infection. And has no signs or symptoms of cardiac etiology. She only uses Flonase occasionally. She has felt better after nebulizer treatment. I will placeher on scheduled DuoNeb every 6 hour for now and give her a trial of 40 mg p.o. prednisone daily. Will also add incentive spirometry as well as daily Flonase. If her symptoms are not improved we willconsult pulmonology. I do not believe her symptoms are due to cardiac etiology however will keep a low threshold to get echocardiogram to assess for left and right heart functions. Plan: ?? Admit to hospital medicine ?? 40 mg p.o. prednisone daily ?? DuoNeb every 6 hours ?? Incentive spirometry ?? She may need home oxygen therapy at the time of discharge ?? Basic labs ?? ProBNP ?? Occupational therapy referral ?? Physical Therapy referral ?? DVT Prophylaxis-subcu heparin ?? If currently a smoker - advised about smoking cessation and will provide smoking cessation material and support. ?? Pneumovax and Influenza Immunizations given as needed. ?? Discussed Advanced Directives and Code Status. The patient wishesto be Full Code. A copy of this document will be sent to the patient's Primary Care Physician and/or Referring Physician. Wai Barclay MD 12/15/2017 documented in this encounter ED Notes * Lamar Clifford RN - 12/15/2017 2:05 AM EDT Transport arrived and taking pt to the floor * Lamar Clifford RN - 12/14/2017 11:10 PM EDT Pt ambulated well around nurses station, pt reports SOB. SPO2 monitored, bounced from 88-91% with one time dropping to 86%. ED Provider notified. Pt used bathroom and then walked back to room. * Danica Sheppard RN - 12/14/2017 9:04 PM EDT Pt ambulated to room ADM2 without difficulty. Changed into hospital gown and connected to business continuity global director. Call day in reach at this time. * Trent Austin MD - 12/14/2017 8:58 PM EDT Heike Ramires is an 72 y.o. female who presents to the ED with: Chief Complaint Patient presents with ??? Shortness of Breath I saw this patient 12/14/2017 at 10:45 PM HPI Heike Ramires is a 72 y.o. female with h/o ovarian fibroma, osteoporosis, and trigeminal neuralgia who presents to the Emergency Department for cough and SOB. She has had upper respiratory symptoms including cough, congestion, runny nose, and shortness of breath since mid September. She has been seen in clinic 4 times and treated with antibiotics twice (Z-Michele on 10/20, doxycycline ??7 days on 11/18 ). Her symptoms have not changed. She was most recently seen on 12/12/17 at which time she had a clear chest x-ray as well as negative CT PE, however there was concern because when she ambulated her O2 saturations dropped from 94% to 91%. She now presents to the emergency department at the request of her PCP for further evaluation. Patient has had intermittent subjective fevers and chills. She denies chest pain, nausea/vomiting, abdominal pain, diarrhea, urinary changes, or lower extremity swelling. She is not currently on antibiotics. Review of Systems: Review of Systems 10 point review of systems performed. As per HPI. All other systems negative. Patient Vitals for the past 24 hrs: BP Temp Temp src Pulse Resp SpO2 Height Weight 12/14/17 2200 114/63 37 ??C (98.6 ??F) Oral 65 17 92 % - - 12/14/17 2100 122/69 - - 69 23 92 % - - 12/14/17 1856 117/79 36.8 ??C (98.2 ??F) Oral 85 17 95 % 151.4 cm (4' 11.6) 54.4 kg (120 lb) Physical Exam: Physical Exam Constitutional: She is oriented to person, place, and time. She appears well- developed and well-nourished. No distress. HENT: Head: Normocephalic and atraumatic. Eyes: Conjunctivae and EOM are normal. Neck: Normal range of motion. Neck supple. Cardiovascular: Normal rate and regular rhythm. Exam reveals no gallop and no friction rub. No murmur heard. Pulmonary/Chest: Effort normal and breath sounds normal. No respiratory distress. She has no wheezes. She has no rales. Frequent coughing Abdominal: Soft. Bowel sounds are normal. She exhibits no distension. There is no tenderness. Thereis no rebound and no guarding. Musculoskeletal: Normal range of motion. She exhibits no edema. Neurological: She is alert and oriented to person, place, and time. Skin: Skin is warm and dry. She is not diaphoretic. Psychiatric: She has a normal mood and affect. Her behavior is normal. Nursing note and vitals reviewed. ED Course: - Patient was evaluated and discussed with Dr. Austin - Medications, allergies and past medical history reviewed Labs reviewed Recent Results (from the past 24 hour(s)) Basic Metabolic Panel (non-fasting) Result Value Ref Range Glucose Lvl 98 65 - 199 mg/dL BUN 17 8 - 18 mg/dL Creatinine 0.74 0.70 - 1.20 mg/dL Sodium 141 135 - 145 mmol/L Potassium 3.8 3.5 - 5.0 mmol/L Chloride 102 98 - 107 mmol/L CO2 24 22 - 31 mmol/L Anion Gap 15 5 - 15 mmol/L Calcium 8.6 8.5 - 10.5 mg/dL Estimated GFR >60 >=60 Hemogram Result Value Ref Range WBC 6.6 4.0 - 9.5 x10(3)/mcL RBC 4.14 4.00 - 5.21 x10(6)/mcL Hemoglobin 12.0 11.7 - 15.5 gm/dL Hematocrit 36.7 35.7 - 45.8 % MCV 88.6 82.6 - 94.4 fL MCH 29.0 27.1 - 32.0 pg MCHC 32.7 31.7 - 35.0 gm/dL Platelets 240 145 - 357 x10(3)/mcL RDWSD 42.0 37.0 - 46.0 fL RDWCV 12.8 11.5 - 14.1 % MPV 9.7 7.6 - 12.9 fL nRBC % Auto 0.0 % nRBC Abs Auto 0.000 0.000 - 0.000 x10(3)/mcL Differential, Automated Result Value Ref Range Neutrophils % 53.4 % Neutr Abs (ANC) 3.50 1.70 - 6.10 x10(3)/mcL Lymphocytes % 28.1 % Lymphocytes Abs 1.8 0.9 - 3.2 x10(3)/mcL Monocytes % 10.4 % Monocyte Abs 0.7 0.3 - 0.9 x10(3)/mcL Eosinophils % 6.9 % Eosinophils Abs 0.4 0.0 - 0.4 x10(3)/mcL Basophils % 0.9 % Basophils Abs 0.1 0.0 - 0.1 x10(3)/mcL Immature Gran % 0.30 % Anne Gran Abs 0.02 0.00 - 0.04 x10(3)/mcL Blue Tube HOLD Result Value Ref Range Blue Hold Sample in lab. Gold Tube HOLD Result Value Ref Range Gold Hold Sample in lab. BLOOD GAS 2 VENOUS Result Value Ref Range pH Danilo 7.39 7.32 - 7.42 pCO2 Danilo 39 (L) 41 - 51 mmHg pO2 Danilo 40 25 - 40 mmHg HCO3 Danilo 23.4 mmol/L BE Danilo -1.5 mmol/L Hgb Blood Gas 13.2 11.7 - 15.5 gm/dL O2HB Danilo 73.1 % COHB Danilo 0.8 % METHB Danilo 0.3 <=1.5 % Na Whole Blood 140 135 - 145 mmol/L K Whole Blood 3.8 3.5 - 5.0 mmol/L ICa Whole Blood 1.17 1.15 - 1.33 mmol/L CL Whole Blood 108 (H) 98 - 107 mmol/L Gluc Whole Bld 96 65 - 199 mg/dL Lactate WB 1.1 0.5 - 2.2 mmol/L BGas Source Venous CXR: NAD Patient ambulated in the ED and O2 saturation dropped to 86% Assessment and Plan: Assessment: 72 y.o. female with upper respiratory symptoms since mid September including cough, congestion, shortness of breath. she had been placed on antibiotics 2 different times since then. She hada CT PE which was negative recently. She presented to the emergency department today for continued symptoms and concern that her O2 saturation had dropped from 91% at her PCPs office. There was also concerned that she had an anion gap at that time. On presentation, the patient was frequently coughing but had clear lung sounds bilaterally. Chest x-ray showed no evidence of pneumonia or other acuteprocess. Blood gas was unremarkable and lactate was 1.1. She had no anion gap. WBC was normal. The patient was ambulated in the emergency department and her O2 saturations dropped to 86%. Due to her hypoxia, the decision was made to admit the patient for further observation. Plan: - admit to [facility] Krystian Sky MD Resident 12/15/17 0006 ED ATTENDING ATTESTATION NOTE The patient was seen in conjunction with Dr. Sky, the resident physician. I have independently performed the [place] portions of the history and physical exam. I have reviewed the nursing notes, vital signs, and all diagnostic studies personally including labs, imaging studies and EKGs. I have discussed the details of the case with the resident and agree with the assessment and plan as described inthe resident note above unless noted otherwise below. Brief Summary: 72-year-old female with COPD and intermittent exacerbations since September. She comesin with increasing difficulty breathing and cough. She was treated with standard steroids and nebulizers after an observation. Was found to have significant dyspnea and hypoxia with minor exertion and for this reason will be admitted to the hospital. There was no evidence of pneumonia. She has no symptoms suggestive of cardiac disease. Final Assessment: COPD exacerbation Trent Austin MD 12/19/17 0643 documented in this encounter Miscellaneous Notes * Plan of Care - Felecia Pringle RN - 12/15/2017 3:48 AM EDT Problem: Patient Care Overview Goal: Plan of Care Review Outcome: Ongoing (Interventions Implemented as Appropriate) 12/15/17 0300 Coping/Psychosocial Plan Of Care Reviewed With patient OUTCOME EVALUATION NOTE: OUTCOME SUMMARY: Pt admitted from ED at 0200 with belongings. Oriented to room and use of call day. Alert and oriented x 4. VSS on RA. SBA to bathroom. Pt brought own herbal medicine for trigeminal neuralgia in plastic baggy, team 2300 paged about use. At this time will defer pt from using supplement as it is not in original bottle so is unidentifiable and may not be compatible w treatment plan. Nurse advised ptto have family member bring in pill bottle tomorrow morning and communicate with treatment team. Patient agreeable with plan of care. Appears to be resting comfortably between care. Will CTM and notify team of any changes. PLAN MOVING FORWARD: Monitor O2 and resp status Observation INDIVIDUALIZED FALL PREVENTION INTERVENTIONS: Patient-specific fall risk factors per assessment: [current deficits]: Med fall risk, KRUGER Assistance [level of assistance required for transfers and ambulation]: independent Supervision [direct monitoring required during toileting and ADLs]: Independent Surveillance [continuous indirect monitoring]: masimo Patient-specific fall prevention interventions for sensory deficits provided, if applicable: NA CPG GOAL OUTCOME EVALUATION: Goal: Individualization & Mutuality Outcome: Ongoing (Interventions Implemented as Appropriate) 12/15/17222 Mutuality/Individual Preferences What Anxieties, Fears or Concerns Do You Have About Your Health or Care? no What Questions Do You Have About Your Health or Care? no What Information Would Help Us Give You More Personalized Care? none Goal: Fall Prevention-Safe Patient Handling Outcome: Ongoing (Interventions Implemented as Appropriate) 12/15/1722212/15/17 0300 Damon Fall Risk History of Falling -- 0 Secondary Diagnosis -- 15 Ambulatory Aids -- 0 Intravenous Therapy/Heparin/Saline Lock -- 20 Gait/Transferring -- 0 Mental Status -- 0 Score -- 35 OTHER Damon Fall Risk -- Low Restraint Interventions Safety Promotion/Fall Prevention activity supervised -- Positioning Body Position -- independent Activity Activity Type -- activity adjusted per tolerance Activity Assistance Provided -- independent Assistive Device Utilized -- none Goal: Infection Control Outcome: Ongoing (Interventions Implemented as Appropriate) 12/15/1722212/15/17299 Safety Interventions Isolation Precautions standard precautions maintained -- Infection Prevention single patient room provided -- Coping Strategies Supportive Measures -- active listening utilized Goal: Discharge Needs Assessment Outcome: Ongoing (Interventions Implemented as Appropriate) 12/15/17222 Living Environment Transportation Available car documented in this encounter Plan of Treatment Upcoming Encounters Date Type Department Care Team (Late st Contact Info) Description 07/07/2024 11:00 AM EDT Office Visit Cardiology at [address] [place] [address] Lorena Lawrence MD [facility] [place] [address] Scheduled Referrals Name Type Priority Associated Diagnoses Orde r Schedule Referral to Pulmonology Outpatient Referral Routine Acute upper respiratory infection Ordered: 12/15/2017 documented as of this encounter Procedures Procedure Name Priority Date/Time Associated Diagnosis Comments BLOOD GAS 2 VENOUS Routine 12/14/2017 9: 32 PM EDT HEMOGRAM STAT 12/14/2017 9:30 PM EDT DIFFERENTIAL, AUTOMATED STAT 12/14/2017 9:30 PM EDT GOLD TUBE HOLD STAT 12/14/2017 9:30 PM EDT BLUE TUBE HOLD STAT 12/14/2017 9:30 PM EDT CBC (WITH DIFF) STAT 12/14/2017 9:30 PM EDT PRO-BRAIN NATRIURETIC PEPTIDE STAT 12/14/2017 9:30 PM EDT BASIC METABOLIC PANEL (NON-FASTING) STAT 12/14/2017 9:30 PM EDT XR CHEST PA AND LATERAL STAT 12/14/2017 9:23 PM EDT documented in this encounter Results * (ABNORMAL) BLOOD GAS 2 VENOUS (12/14/2017 9:32 PM EDT) pH Danilo 7.39 7.32 - 7.42 [facility] pCO2 Danilo 39(L) 41 - 51 mmHg [facility] pO2 Danilo 40 25 - 40 mmHg [facility] HCO3 Danilo 23.4 mmol/L [facility] BE Danilo -1.5 mmol/L [facility] Hgb Blood Gas 13.2 11.7 - 15.5 gm/dL [facility] O2HB Danilo 73.1 % [facility] COHB Danilo 0.8 % [facility] Comment: Nonsmokers: 0.5-1.5% COHB Smokers: Variable, but usually less than 10% Toxic: 20-30% COHB Lethal: Greater than 60% COHB METHB Danilo 0.3 <=1.5 % [facility] Na Whole Blood 140 135 - 145 mmol/L [facility] K Whole Blood 3.8 3.5 - 5.0 mmol/L [facility] Comment: Please note: Patients with WBC >100,000 may have falsely elevated Potassium levels. Contact the Clinical Chemistry Laboratory if there are any questions. ICa Whole Blood 1.17 1.15 - 1.33 mmol/L [facility] Comment: Note: ??Total bilirubin higher than 20 mg/dL may lead to falsely low ionized calcium. CL Whole Blood 108(H) 98 - 107 mmol/L [facility] Gluc Whole Bld 96 65 - 199 mg/dL [facility] Comment:Diabetes: >=200 mg/d L plus symptoms Lactate WB 1.1 0.5 - 2.2 mmol/L [facility] BGas Source Venous [facility] Blood specimen (specimen) 12/14/2017 9:32 PM EDT 12/14/2017 9:32 PM EDT Trent Austin MD CHEMISTRY ORDERABLES Performing Organization Address [facility] Co de Phone Number [facility] [place] [address] * pro-Brain Natriuretic Peptide (12/14/2017 9:30 PM EDT) ProBNP 123 <=125 pg/mL [facility] Blood specimen (specimen) Venous Draw / Unknown 12/14/2017 9:30 PM EDT 12/14/2017 9:47 PM EDT Narrative Resulting Agency Comment Spec In Lab Wai Barclay MD CHEMISTRY ORDERABLES [facility] [place] [address] * Gold Tube HOLD (12/14/2017 9:30 PM EDT) Gold Hold Sample in lab. [facility] Blood specimen (specimen) Venous Draw / Unknown 12/14/2017 9:30 PM EDT 12/14/2017 9:44 PM EDT Trent Austin MD CHEMISTRY ORDERABLES Performing Organization Address City/[facility]/ZIP Co de Phone Number [facility] [place] [address] * Blue Tube HOLD (12/14/2017 9:30 PM EDT) [facility] Blue Hold Sample in lab. [facility] Blood specimen (specimen) Venous Draw / Unknown 12/14/2017 9:30 PM EDT 12/14/2017 9:43 PM EDT Trent Austin MD HEMATOLOGY ORDERABLE S Performing Organization Address [facility]/ZIP Co de Phone Number [facility] [place] [address] * Differential, Automated (12/14/2017 9:30 PM EDT) Neutrophils % 53.4 % [facility] Neutr Abs (ANC) 3.50 1.70 - 6.10 x10(3)/[facility] Lymphocytes % 28.1 % [facility] Lymphocytes Abs 1.8 0.9 - 3.2 x10(3)/[facility] Monocytes % 10.4 % [facility] Monocyte Abs 0.7 0.3 - 0.9 x10(3)/[facility] Eosinophils % 6.9 % [facility] Eosinophils Abs 0.4 0.0 - 0.4 x10(3)/[facility] Basophils % 0.9 % [facility] Basophils Abs 0.1 0.0 - 0.1 x10(3)/[facility] Immature Gran % 0.30 % [facility] Comment: Immature granulocytes(IG's)percentage and absolute count will include metamyelocytes, myelocytes, and promyelocytes. Blood smears from CBCs yielding IG's will be scanned manually for concordance. If this scan disagrees with the automated IG or if promyelocytes are noted, a manual differential will be performed. Anne Gran Abs 0.02 0.00 - 0.04 x10(3)/[facility] Blood specimen (specimen) 12/14/2017 9:30 PM EDT 12/14/2017 9:40 PM EDT Narrative Resulting Agency Comment Spec In Lab Trent Austin MD HEMATOLOGY ORDERABLE S [facility] [place] [address] * Hemogram (12/14/2017 9:30 PM EDT) WBC 6.6 4.0 - 9.5 x10(3)/[facility] RBC 4.14 4.00 - 5.21 x10(6)/[facility] Hemoglobin 12.0 11.7 - 15.5 gm/dL [facility] Hematocrit 36.7 35.7 - 45.8 % [facility] MCV 88.6 82.6 - 94.4 fL [facility] MCH 29.0 27.1 - 32.0 pg [facility] MCHC 32.7 31.7 - 35.0 gm/dL [facility] Platelets 240 145 - 357 x10(3)/[facility] RDWSD 42.0 37.0 - 46.0 [facility] RDWCV 12.8 11.5 - 14.1 % [facility] MPV 9.7 7.6 - 12.9 fL [facility] nRBC % Auto 0.0 % [facility] nRBC Abs Auto 0.000 0.000 - 0.000 x10(3)/mcL [facility] Blood specimen (specimen) 12/14/2017 9:30 PM EDT 12/14/2017 9:40 PM EDT Narrative Resulting Agency Comment Spec In Lab Trent Austin MD HEMATOLOGY ORDERABLE S [facility] [place] [address] * Basic Metabolic Panel (non-fasting) (12/14/2017 9:30 PM EDT) Glucose Lvl 98 65 - 199 mg/dL [facility] Comment:Diabetes: >=200 mg/d L plus symptoms BUN 17 8 - 18 mg/dL [facility] Creatinine 0.74 0.70 - 1.20 mg/dL [facility] Sodium 141 135 - 145 mmol/L [facility] Potassium 3.8 3.5 - 5.0 mmol/L [facility] Comment: Please note: ??Patients with WBC >100,000 may have falsely elevated Potassium levels. ??For accurate Potassium quantification in these patients send serum separator tube (gold top) for subsequent determinations. ??Contact the Clinical Chemistry Laboratory if there are any questions. Chloride 102 98 - 107 mmol/L [facility] CO2 24 22 - 31 mmol/L [facility] Anion Gap 15 5 - 15 mmol/L [facility] Calcium 8.6 8.5 - 10.5 mg/dL [facility] Estimated GFR >60 >=60 [facility] Comment: The reported eGFR should be multiplied by 1.2 for patients. The MDRD is not an appropriate measure of renal function for patients with body mass extremes or in patients with acute kidney failure. http://COH.Go Vocab/DHnkdep http://Flipzu/DHMCnkf Blood specimen (specimen) 12/14/2017 9:30 PM EDT 12/14/2017 9:40 PM EDT Narrative Resulting Agency Comment Spec In Lab Trent Austin MD CHEMISTRY ORDERABLES [facility] [place] [address] * XR Chest PA & Lateral (Generic) (12/14/2017 9:23 PM EDT) Anatomical Region Laterality Modality Chest N/A Digital Radiogra phy Impressions 12/14/2017 11:26 PM EDT No acute cardiopulmonary process seen. Narrative 12/14/2017 11:26 PM EDT EXAMINATION: XR CHEST PA LATERAL CLINICAL HISTORY: Cough, SOB TECHNIQUE: Frontal and lateral COMPARISON: Chest radiographs and CT December 12, 2017. FINDINGS: Mild streaky basilar subsegmental atelectasis and/or scarring. No confluent airspace opacity, pleural effusion, or pneumothorax definitively identified. Cardiomediastinal contours within normal limits for age. Procedure Note Pantera Lemus MD - 12/14/2017 EXAMINATION: XR CHEST PA LATERAL CLINICAL HISTORY: Cough, SOB TECHNIQUE: Frontal and lateral COMPARISON: Chest radiographs and CT December 12, 2017. FINDINGS: Mild streaky basilar subsegmental atelectasis and/or scarring. Noconfluent airspace opacity, pleural effusion, or pneumothorax definitivelyidentified. Cardiomediastinal contours within normal limits for age. IMPRESSION No acute cardiopulmonary process seen. Trent Austin MD IMG DX ORDERABLES documented in this encounter Visit Diagnoses Diagnosis Acute upper respiratory infection Acute upper respiratory infections of unspecified site Hypoxia Hypoxemia documented in this encounter Admitting Diagnoses Diagnosis Hypoxia Hypoxemia documented in this encounter Administered Medications Inactive Administered Medications - up to 3 most recent administrations Medication Order MAR Action Action Date Dose Rate Site albuterol 90 mcg/actuation inhaler 1 puff 1 puff, Inhalation, 4 TIMES DAILY, First dose on Fri12/15/17 at 1300, Until Discontinued, Please use with spacer, Routine, Is there a contraindication to the patient receiving this medication as a nebulizer? No, Nebulizers typically cost 5-10 times less than inhalers, making them more cost effective treatment options for most patients. If the patient can receive a nebulizer but you would like to continue ordering an inhaler, please explain why. patient needs inhaler education for new start Given 12/15/2017 12:57 PM EDT 1 puff fluticasone (FLONASE) 50 mcg/actuation nasal spray 1 spray 1 spray, Each Nare, DAILY, First dose on Fri12/15/17 at 0900, Until Discontinued, Routine Given 12/15/2017 12:58 PM EDT 1 spray heparin (Porcine) subcutaneous injection 5,000 Units 5,000 Units, Subcutaneous, EVERY 12 HOURS SCHEDULED (2 times per day), First dose on Fri12/15/17 at 0245, Until Discontinued, Routine Given 12/15/2017 2:55 AM EDT 5,000 Units ipratropium-albuterol (DUONEB) 0.5 mg-3 mg(2.5 mg base)/3 mL nebulizer solution 3 mL 3 mL, Nebulization, ONCE, 1 dose, On Fri12/14/17 at 2152, STAT Given 12/14/2017 10:32 PM EDT 3 mLs ipratropium-albuterol (DUONEB) 0.5 mg-3 mg(2.5 mg base)/3 mL nebulizer solution 3 mL 3 mL, Nebulization, EVERY 6 HOURS, First dose on Fri12/15/17 at 0245, Until Discontinued, Routine Given 12/15/2017 8:15 AM EDT 3 mLs Given 12/15/2017 2:49 AM EDT 3 mLs pantoprazole (PROTONIX) tablet 40 mg 40 mg, Oral, DAILY, First dose on Fri12/15/17 at 1145, Until Discontinued, DO NOT CRUSH OR OPEN Given 12/15/2017 12:57 PM EDT 40 mg predniSONE (DELTASONE) tablet 40 mg 40 mg, Oral, DAILY, First dose on Fri12/15/17 at 0050, Until Discontinued, Routine Given 12/15/2017 12:5 0 AM EDT 40 mg sodium chloride 0.9 % flush 5 mL 5 mL, Intravenous, 2 TIMES DAILY, First dose on Fri12/15/17 at 0245, Until Discontinued, Routine Given 12/15/2017 8:16 AM EDT 10 mLs Given 12/15/2017 2:45 AM EDT 5 mLs documented in this encounter Active and Recently Administered Medications Times are shown in EDT. Scheduled Medication Order 12/13/2017 12/14/2017 12/15/2017 albuterol 90 mcg/actuation inhaler 1 puff 1 puff, Inhalation, 4 TIMES DAILY, First dose on Fri12/15/17 at 1300, Until Discontinued, Please use with spacer, Routine, Is there a contraindication to the patient receiving this medication as a nebulizer? No, Nebulizers typically cost 5-10 times less than inhalers, making them more cost effective treatment options for most patients. If the patient can receive a nebulizer but you would like to continue ordering an inhaler, please explain why. patient needs inhaler education for new start 1257 (Given - Provider: Michael Slater, TUSHAR) fluticasone (FLONASE) 50 mcg/actuation nasal spray 1 spray 1 spray, Each Nare, DAILY, First dose on Fri12/15/17 at 0900, Until Discontinued, Routine 1258 (Given - Provider: Michael Slater, TUSHAR) heparin (Porcine) subcutaneous injection 5,000 Units 5,000 Units, Subcutaneous, EVERY 12 HOURS SCHEDULED (2 times per day), First dose on Fri12/15/17 at 0245, Until Discontinued, Routine 0255 (Given - Provider: Felecia Pringle RN)0815 (Not Given - Provider: Michael Slater RN - Reason: See comment - Comment: given at 3am) ipratropium-albuterol (DUONEB) 0.5 mg-3 mg(2.5 mg base)/3 mL nebulizer solution 3 mL (COMPLETED) 3 mL, Nebulization, ONCE, 1 dose, On 12/14/17 at 2152, STAT 2232 (Given - Provider: Lamar Clifford RN) ipratropium-albuterol (DUONEB) 0.5 mg-3 mg(2.5 mg base)/3 mL nebulizer solution 3 mL (CANCELED) 3 mL, Nebulization, EVERY 6 HOURS, First dose on Fri12/15/17 at 0245, Until Discontinued, Routine 0249 (Given - Provider: Felecia Pringle RN)0815 (Given - Provider: Michael Slater, RN) pantoprazole (PROTONIX) tablet 40 mg 40 mg, Oral, DAILY, First dose on Fri12/15/17 at 1145, Until Discontinued, DO NOT CRUSH OR OPEN 1257 (Given - Provider: Michael Slater, TUSHAR) predniSONE (DELTASONE) tablet 40 mg 40 mg, Oral, DAILY, First dose on Fri12/15/17 at 0050, Until Discontinued, Routine 0050 (Given - Provider: Lamar Clifford RN) sodium chloride 0.9 % flush 5 mL 5 mL, Intravenous, 2 TIMES DAILY, First dose on Fri12/15/17 at 0245, Until Discontinued, Routine 0245 (Given - Provider: Felecia Pringle RN)0816 (Given - Provider: Michael Slater, TUSHAR) PRN Medication Order 12/13/2017 12/14/2017 12/15/2017 dextromethorphan-guaiFENesin (ROBITUSSIN) 10-100 mg/5 mL oral syrup 5 mL 5 mL, Oral, EVERY 4 HOURS PRN, Starting on Fri12/15/17 at 0225, Until Fri12/15/17 at 1529, Cough, Routine lidocaine (XYLOCAINE) 10 mg/mL (1 %) injection 3 mg 3 mg (0.3 mL), Subcutaneous, ONCE PRN, 1 dose, Starting on Fri12/15/17 at 0225, Until Fri12/15/17 at 1529, for discomfort with PIV insertion, Routine sodium chloride 0.9 % flush 5-20 mL 5-20 mL, Intravenous, EVERY 1 MIN PRN, Starting on Fri12/15/17 at 0225, Until Fri12/15/17 at 1529, flush, Flush pertains to all indwelling lines. Flush per protocol found in the job aid using the link provided on this medication record., Routine documented in this encounter Care Teams Global President Relationship Specialty Start Date End Date Henrietta Null MD [facility] [address] [facility] [place] [address] PCP - General 12/20/10 05/08/20 documented as of this encounter
--- OUTSIDE RECORDS SUMMARY | 2024-04-23 12:16 | XMS_ITS | Encounter Summary ---
Author Organization Formerly [facility] [place] [address] Care Team Providers Care Bleach Range Operator Name Role Phone Henrietta Null MD Primary Care Provider Reason for Referral * Diagnostic Test (Emergency) - Closed Specialty Diagnoses / Procedures Referred By Evelio mathis Referred To Contact Radiology Diagnoses Chest tightness or pressure Exertional dyspnea Procedures CTA Chest for Pulmonary Embolus w Contrast Neal Cooper MD [facility] [place] [address] [facility] [place] [address] Referral ID Status Reason Start Date Expiration Date V isits Requested Visits Authorized [id number] Closed Specialty Service Requested 12/12/2017 12/12/2018 1 1 Reason for Visit * Reason Comments URI xrays done this am Encounter Details Date Type Department Care Team (Late st Contact Info) Description 12/12/2017 2:00 PM EDT Office Visit Internal Medicine at [address] [address] Neal Cooper MD [facility] [place] [address] Chest tightness or pressure; Exertional dyspnea; Cough, persistent Social History Tobacco Use Types [...] Sign Reading Time Taken Comments Blood Pressure 124/53 12/12/2017 1:48 PM EDT Pulse 82 12/12/2017 1:48 PM EDT Temperature 36.6 ??C (97.8 ??F) 12/12/2017 1:48 PM ED T Respiratory Rate - - Oxygen Saturation - - Inhaled Oxygen Concentration - - Weight 54.9 kg (121 lb) 12/12/2017 1:48 PM EDT Height - - Body Mass Index 24.03 11/18/2017 11:13 AM EST documented in this encounter Progress Notes * Neal Cooper - 12/12/2017 2:00 PM EDT Images from the original note were not included. Established Patient Acute Visit Internal Medicine - [facility] Subjective: Heike Ramires is a 72 y.o. year old female with history of ovarian fibroma and osteoporosis who presents to clinic today with the following acute concerns: My breathing and coughing: Summary of recent care: October 20: Seen by Vale Burton, treated for community acquired pneumonia with 5 day course azithromycin (Augmentin initially co-prescribed but discontinued in setting of diarrhea). October 29: Seen by Jt Gardner: treated with afrin / flonase for presumed viral bronchitis. November 18: Seen by Silvino Kyle: treated with doxycycline (7 d) for diagnosis of acute bacterial sinusitis. She notes transient improvement in cough / malaise symptoms during each course of antibiotics but symptoms never resolved and seemed to have worsened after the most recent course of doxycycline. Overthe past week, she has noted progressive shortness of breath limiting her activities. 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 Over the past several days, she has noted a chest pressure sensation like someone sitting on my chest, which is non-exertional, worsened with deep breathing and coughing. Thechest pressure does not radiate to her shoulders or down her arms. She has no history of heart attacks. She denies any prolonged periods of immobility or recent air travel, no symptoms of swelling in thebilateral lower extremities. She has noted a temperature of 99.9F at home in tandem with ongoing symptoms of fevers / chills. Her cough is productive of yellow mucoid sputum, no blood. She denies anysick contacts. Last night she slept on two pillows due to symptoms of shortness of breath while lyin g flat. She has never awoken suddenly short of breath. Has been taking benzonatate (didn't help) and mucinex (AM/PM). She denies any unintentional weight loss. Review of Systems - pertinent positives and negatives as noted above. Medications: Reviewed in chart and updated. Past Medical History & Social History: Reviewed in chart and updated. Objective: Physical Examination BP 124/53 Pulse 82 Temp 36.6 ??C (97.8 ??F) (Oral) Wt 54.9 kg (121 lb) BMI 24.03 kg/m2 SdQ274% at rest, desaturated to 91% with ambulation. General - Elderly adult female, sitting upright in chair at bedside, alert and fully oriented, breathing is fast and shallow (estimated ~30 times per minute). Eyes - No conjunctival icterus or pallor appreciated. Neck - Unable to see JVP with patient reclining at orthogonal position or sitting directly upright,suspect JVP <3 cm above sternal angle. Lungs - Bilateral fine inspiratory crackles in posterior lung bases. Heart - Regular rate, no murmurs, rubs, or S3/4 gallops Extremities - No edema, warm and well perfused. Pulses of equal and normal contour. EKG in office today: Normal axis and intervals, no acute ST segment deviation, t-waves concordant with QRS axes. Marginally poor r-wave progression, slightly low voltage. Chest Radiograph 12/12/17: (my read): lung thomas essentially clear with no sign of congestive pleural effusions of focal opacifications. Note 7mm nodular opacity in right lower lung field as marked by radiology. Assessment & Plan: Heike Ramires is a 72 y.o. year old female. The following issues were addressed during this acute visit. Chest Pressure, Tachypnea, Mild hypoxemia, Relative Tachycardia: I am most concerned about the possibility of an acute pulmonary embolus. I do not see compelling signs of Myocardial infarct on ECG; if her dyspnea were secondary to myocardial infarct, I would expect to see acute pulmonary edema or at least evidence of right heart failure with venous congestion (which I do not). Likewise if her dyspnea were attributable to a viral or bacterial pneumonia with subsequent V/Q mismatching, I would expect to see clear interstitial opacifications consistent with that pattern. Overall, the combination of profound tachypnea and clear lung thomas on radiograph are what I find most concerning. I do not know of a diathesis for clotting aside from the incidental finding of a 7mm nodule on chest xray. While the CT-PE is not a definitive study for this nodule, it willtell us more about the possibility of further nodules. A follow up high resolution CT is likely merited in the non- acute setting. - CBC, BMP, Pro-BNP - stat CT-PE protocol. - If evidence of acute PE, would seek inpatient admission for PE workup - to include at minimum thefollowing: - DVT duplex bilateral lower extremities to assess for clot burden - TTE to assess for right heart strain - Initiation of therapeutic anticoagulation - She remains hemodynamically stable at the moment so I doubt we will have to consider thrombolytics. It is furthermore possible (as an alternative explanation), that her profound dyspnea may be best explained by progression of her viral upper respiratory infection, by a viral or infiltrative cardiomyopathy -- though as explained above I do not have clinical exam findings consistent with heart failure at this stage. If her CT-PE study is negative, I will likely seek close follow up in the outpatient setting (in 1-2 days ideally) for re-evaluation. I discussed this case with my attending Dr Sotero Bentley; his addendum will follow. Neal Cooper MD. PGY-2 Internal Medicine Pager #[phone] * Sotero Bentley MD - 12/12/2017 2:00 PM EDT The case was discussed at the time of the visit or immediately after the visit. The assessment and plan were formulated in discussion with me and I agree with them as documented. I have reviewed the history, physical exam, assessment and plan with the resident. Major issues discussed today: Pt seen by Nataliya Burton in Sep. Given z-sobia and augmentin. Got diarrhea on augmentin and competed 5 day course of z-sobia. Seen by Dr Null on Sep. Given afrin and flonase. Seen by Silvino on Nov 18and thought to be sinusitis with 7 day course of doxy. Having sxs of fevers, chills and cough. Got cxr today. Having sxs of chest pressure also. Getting worse with exertion. Last night had some orthopnea. Exam -breathing 30 breaths per minute -bilateral inspiratory crackles -no r/m/g -no CON Sats dropped from 95 to 90 with walking EKG: low voltage and somewhat poor R wave progression Plan: Concerned for PE given tachypnea and relative tachycardia compared to baseline. Will get CT PE protocol, cbc, bmp, pro-bnp. documented in this encounter Plan of Treatment Upcoming Encounters Date Type Department Care Team (Late st Contact Info) Description 07/07/2024 11:00 AM EDT Office Visit Cardiology at [address] [place] [phone] Lorena Lawrence MD [facility] [place] [address] documented as of this encounter Procedures Procedure Name Priority Date/Time Associated Diagnosis Comments HEMOGRAM Routine 12/12/2017 3:37 PM EDT Cough, persistent DIFFERENTIAL, AUTOMATED Routine 12/12/2017 3:37 PM EDT Cough, persistent CBC (WITH DIFF) Routine 12/12/2017 3:37 PM EDT Cough, persistent PRO-BRAIN NATRIURETIC PEPTIDE Routine 12/12/2017 3:37 PM EDT Exertional dyspnea BASIC METABOLIC PANEL (NON-FASTING) Routine 12/12/2017 3:37 PM EDT Cough, persistent EKG 12-LEAD Routine 12/12/2017 2:30 PM EDT Chest tightness or pressure documented in this encounter Results * CTA [...] abnormality.. Sotero Bentley MD IMG CT ORDERABLES * (ABNORMAL) Differential, Automated (12/12/2017 3:37 PM EDT) Neutrophils % 75.5 % [facility] Neutr Abs (ANC) 7.32(H) 1.70 - 6.10 x10(3)/ L [facility] Lymphocytes % 14.8 % [facility] Lymphocytes Abs 1.4 0.9 - 3.2 x10(3)/[facility] Monocytes % 6.3 % [facility] Monocyte Abs 0.6 0.3 - 0.9 x10(3)/[facility] Eosinophils % 2.4 % [facility] Eosinophils Abs 0.2 0.0 - 0.4 x10(3)/[facility] Basophils % 0.4 % [facility] Basophils Abs 0.0 0.0 - 0.1 x10(3)/[facility] Immature Gran % 0.60 % [facility] Comment: Immature granulocytes(IG's)percentage and absolute count will include metamyelocytes, myelocytes, and promyelocytes. Blood smears from CBCs yielding IG's will be scanned manually for concordance. If this scan disagrees with the automated IG or if promyelocytes are noted, a manual differential will be performed. Anne Gran Abs 0.06(H) 0.00 - 0.04 x10(3)/ L [facility] Blood specimen (specimen) 12/12/2017 3:37 PM EDT 12/12/2017 3:40 PM EDT Narrative Resulting Agency Comment Spec In Lab Neal Cooper MD HEMATOLOGY ORDERABLE S [facility] [place] [address] * (ABNORMAL) Hemogram (12/12/2017 3:37 PM EDT) WBC 9.7(H) 4.0 - 9.5 x10(3)/[facility] RBC 4.47 4.00 - 5.21 x10(6)/[facility] Hemoglobin 12.8 11.7 - 15.5 gm/dL [facility] Hematocrit 39.6 35.7 - 45.8 % [facility] MCV 88.6 82.6 - 94.4 fL [facility] MCH 28.6 27.1 - 32.0 pg [facility] MCHC 32.3 31.7 - 35.0 gm/dL [facility] Platelets 260 145 - 357 x10(3)/[facility] RDWSD 41.1 37.0 - 46.0 [facility] RDWCV 12.7 11.5 - 14.1 % [facility] MPV 9.5 7.6 - 12.9 fL [facility] nRBC % Auto 0.0 % [facility] nRBC Abs Auto 0.000 0.000 - 0.000 x10(3)/[facility] Blood specimen (specimen) 12/12/2017 3:37 PM EDT 12/12/2017 3:40 PM EDT Narrative Resulting Agency Comment Spec In Lab Neal Cooper MD HEMATOLOGY ORDERABLE S [facility] [place] [address] * pro-Brain Natriuretic Peptide (12/12/2017 3:37 PM EDT) ProBNP 116 <=125 pg/mL [facility] Blood specimen (specimen) 12/12/2017 3:37 PM EDT 12/12/2017 3:40 PM EDT Narrative Resulting Agency Comment Spec In Lab Sotero Bentley MD CHEMISTRY ORDERABLES Performing Organization Address [facility] Co de Phone Number [facility] [place] [address] * (ABNORMAL) Basic Metabolic Panel (non-fasting) (12/12/2017 3:37 PM EDT) Glucose Lvl 106 65 - 199 mg/dL [facility] Comment:Diabetes: >=200 mg/d L plus symptoms BUN 16 8 - 18 mg/dL [facility] Creatinine 0.89 0.70 - 1.20 mg/dL [facility] Sodium 147(H) 135 - 145 mmol/L [facility] Potassium 4.5 3.5 - 5.0 mmol/L [facility] Comment: Please note: ??Patients with WBC >100,000 may have falsely elevated Potassium levels. ??For accurate Potassium quantification in these patients send serum separator tube (gold top) for subsequent determinations. ??Contact the Clinical Chemistry Laboratory if there are any questions. Chloride 105 98 - 107 mmol/L [facility] CO2 23 22 - 31 mmol/L [facility] Anion Gap 19(H) 5 - 15 mmol/L [facility] Calcium 9.4 8.5 - 10.5 mg/dL [facility] Estimated GFR >60 >=60 [facility] Comment: The reported eGFR should be multiplied by 1.2 for patients. The MDRD is not an appropriate measure of renal function for patients with body mass extremes or in patients with acute kidney failure. http://Konnects.NextStep.io/DHnkdep [email or web address]://Konnects.NextStep.io/DHMCnkf Blood specimen (specimen) 12/12/2017 3:37 PM EDT 12/12/2017 3:40 PM EDT Narrative Resulting Agency Comment Spec In Lab Sotero Bentley MD CHEMISTRY ORDERABLES Performing Organization Address [facility]/ZIP Co de Phone Number [facility] [place] [address] * EKG 12 Lead (12/12/2017 2:30 PM EDT) Ventricular rate 73 BPM MUSE SYSTEM Atrial Rate 73 BPM MUSE SYSTEM P-R Interval 164 ms MUSE SYSTEM QRS Duration 78 ms MUSE SYSTEM Q-T Interval 384 ms MUSE SYSTEM QTC Calculated (Bezet) 423 ms MUSE SYSTEM Calculated P [place] 52 degrees MUSE SYSTEM Calculated R [place] -3 degrees MUSE SYSTEM Calculated T [place] 46 degrees MUSE SYSTEM INTERPRETATION Normal sinus rhythm Low voltage QRS Nonspecific ST abnormality Abnormal ECG When compared with ECG of 07-JAN-2011 12:11, QT has shortened Confirmed by Agustin CONTRERAS, [facility] ([id number]) on 12/12/2017 3:51:49 PM MUSE SYSTEM 12/12/2017 2:30 PM EDT 12/12/2017 3:51 PM EDT Sotero Bentley MD ECG ORDERABLES MUSE SYSTEM documented in this encounter Visit Diagnoses Diagnosis Chest tightness or pressure Other chest pain Exertional dyspnea Other dyspnea and respiratory abnormality Cough, persistent Cough Chest tightness or pressure Other chest pain Exertional dyspnea Other dyspnea and respiratory abnormality documented in this encounter Care Teams Bleach Range Operator Relationship Specialty Start Date End Date Henrietta Null MD [facility] [address] [place] [address] PCP - General 12/20/10 05/08/20 documented as of this encounter
--- OUTSIDE RECORDS SUMMARY | 2024-04-23 12:16 | XMS_ITS | Encounter Summary ---
Author Organization [facility] [place] [address] Care Team Providers Care Fiberglass Boat Builder Name Role Phone Henrietta Null MD Primary Care Provider [phone] Encounter Details Date Type Department Care Team (Late st Contact Info) Description 05/05/2017 Telephone Internal Medicine at [address] [address] Juliann Paez CCMA Social History Tobacco Use Types Packs/Day Years [...] encounter Miscellaneous Notes * Telephone Encounter - Juliann Paez MA - 05/05/2017 10:18 AM EDT Spoke to pt and relayed reply message per Dr. Null. Pt verbalized understanding. * Telephone Encounter - Henrietta Null MD - 05/05/2017 9:20 AM EDT Kidney function on last check were well within the normal range. It was the lipids that were elevated, but we are monitoring these and have decided that no medications will be started at this time. There is no need to repeat any blood. Will ask Juliann to call pt back to explain this. * Telephone Encounter - Juliann Paez MA - 05/05/2017 8:06 AM EDT Spoke to pt. Relayed message to patient about her Dexa per Dr. Null. Pt verbalized understanding.She also was wondering about her kidney's as a previous message had stated this. I went to chart review and re-read the last e-mail from Dr. Null about her labs. She was wondering what to do about this. I told pt Dr. Null did not specify when she wanted to re do these labs, so I would send a note to Dr. Null and see when she wanted them repeated. Pt would like a phone call from medical records secretary toschedule these repeat labs whenever Dr. Null thinks she should have them done. documented in this encounter Plan of Treatment Upcoming Encounters Date Type Department Care Team (Late st Contact Info) Description 07/07/2024 11:00 AM EDT Office Visit Cardiology at [address] [phone] [facility] [place] [address] documented as of this encounter Visit Diagnoses Not on filedocumented in this encounter Care Teams Fiberglass Boat Builder Relationship Specialty Start Date End Date Henrietta Null MD [facility] [address] [facility] [place] [address] PCP - General 12/20/10 05/08/20 documented as of this encounter
--- OUTSIDE RECORDS SUMMARY | 2024-04-23 12:16 | XMS_ITS | Encounter Summary ---
Author Organization [facility]ly [facility] [address] [place] [address] Care Team Providers Care Group Home Counselor Name Role Phone Henrietta Null MD Primary Care Provider [phone] Encounter Details Date Type Department Care Team (Late st Contact Info) Description 12/14/2017 Telephone Internal Medicine at [address] [phone] Neal Cooper MD [facility] [place] [address] Social History Tobacco Use Types Packs/Day Years [...] encounter Miscellaneous Notes * Telephone Encounter - Neal Cooper - 12/14/2017 7:09 PM EDT I followed up with Heike this morning by phone but she did not answer -- left a voice message on identifiable voice mail. She called back this evening and explained that she felt essentially the same as Friday - persistent shortness of breath, cough, malaise. She wondered if she should go to the emergency room and I encouraged her to do so -- outstanding questions in my mind from Friday includethe followin) Anion Gap - ? Toxic (tylenol, salicylates?) - could recheck to see if resolved or worsened. 2) Tachypnea & ambulatory desaturations in setting of clear chest radiograph and negative CT-PE. ? Viral pericarditis or myocarditis leading to subclinical pulmonary edema vs CTEPH not seen on CTprotocol. I called the emergency room and spoke to Dr Austin regarding her case; he agreed to review her labsand clinical status upon arrival. Neal Cooper MD PGY-2, Internal Medicine documented in this encounter Plan of Treatment Upcoming Encounters Date Type Department Care Team (Late st Contact Info) Description 07/07/2024 11:00 AM EDT Office Visit Cardiology at [address] [phone] Lorena Lawrence MD [facility] [place] [address] documented as of this encounter Visit Diagnoses Not on filedocumented in this encounter Care Teams Group Home Counselor Relationship Specialty Start Date End Date Henrietta Null MD [facility] [address] [place] [address] PCP - General 12/20/10 05/08/20 documented as of this encounter
--- OUTSIDE RECORDS SUMMARY | 2024-04-23 12:16 | XMS_ITS | Encounter Summary ---
Author Organization [facility] [place] [address] Care Team Providers Care Web Page Developer Name Role Phone Henrietta Null MD Primary Care Provider [phone] Encounter Details Date Type Department Care Team (Late st Contact Info) Description 12/12/2017 Telephone Internal Medicine at [address] [phone] Neal Cooper MD [facility] [place] [address] Social History Tobacco Use Types Packs/Day Years [...] * Telephone Encounter - Neal Cooper - 12/12/2017 6:26 PM EDT I spoke to the reading radiologist in review of eHike's CT angiogram of the chest. It was negative for pulmonary embolism. I remain concerned about what could be causing her tachypnea, ambulatory desaturation, and relative tachycardia -- as I do not think we have an adequate explanation at this stage. Her labs are remarkable for an anion gap metabolic acidosis (Na 147, CO2 23, Gap 19) which I cannot explain easily. I called Heike and advised her to present to the emergency department directly , primarily with intent to obtain an arterial blood gas to further elucidate this process and decide whether or not she would benefit from admission for further workup and monitoring. She initiallyagreed to this so I called the on-call ED physician Dr Nicholas Garcia who agreed to see her on arrival in the emergency department. I subsequently drove from clinic in [place] to [facility] hoping to intersect Heike and follow up on her symptoms and extant workup. She had not arrived by the time I arrived so I called her again on hercell #. She explained that she had decided not to present to the emergency department because she didn't see how it would help. I explained that there were a number of things that we did not yet under stand about her symptoms and urged her to reconsider as we had not yet identified why she was having trouble breathing. She deferred. I encouraged her to return promptly to the emergency department in case of any worsening or persistence of these symptoms over the weekend. She said she would. I will follow up with her over the weekend. Neal Cooper MD documented in this encounter Plan of Treatment Upcoming Encounters Date Type Department Care Team (Late st Contact Info) Description 07/07/2024 11:00 AM EDT Office Visit Cardiology at [address] [phone] Lorena Lawrence MD [facility] [place] [address] documented as of this encounter Visit Diagnoses Not on filedocumented in this encounter Care Teams Web Page Developer Relationship Specialty Start Date End Date Henrietta Null MD [facility] [place] [address] PCP - General 12/20/10 05/08/20 documented as of this encounter
--- OUTSIDE RECORDS SUMMARY | 2024-04-23 12:16 | XMS_ITS | Encounter Summary ---
Author Organization [facility] Address [facility] [place] [address] Care Team Providers Care Event Attendant Name Role Phone Henrietta Null MD Primary Care Provider [phone] Encounter Details Date Type Department Care Team (Latest Contact Info) Description 12/12/2017 11:09 AM EDT - 12/12/2017 3:41 PM EDT Hospital Encounter XRay at [address] [place] [address] Henrietta Null MD [facility] [address] Cough, persistent Discharge Disposition: Home Social History Tobacco Use [...] mouth daily. 01/10/2012 fluticasone (FLONASE) 50 mcg/actuation [place], Suspension 1 spray by Each Nare route daily. 16 g 11 10/20/2017 09/17/2019 cyanocobalamin (VITAMIN B-12) 1,000 mcg tablet 12/20/201006/01 documented as of this encounter Plan of Treatment Upcoming Encounters Date Type Department Care Team (Late st Contact Info) Description 07/07/2024 11:00 AM EDT Office Visit Cardiology at [address] [place] [phone] Lorena Lawrence MD [facility] [place] [address] documented as of this encounter Procedures Procedure Name Priority Date/Time Associated Diagnosis Comments XR CHEST PA AND LATERAL Routine 12/12/2017 11:18 AM EDT Cough, persistent documented in this encounter Results * (ABNORMAL) XR Chest PA & Lateral (Generic) (12/12/2017 11:18 AM EDT) Anatomical Region Laterality Modality Chest N/A Digital Radiogra phy Impressions 12/12/2017 11:28 AM EDT 1. ??No acute-appearing cardiopulmonary pathology. 2. ??Unexpected finding. 7 mm nodular opacity seen on the frontal projection by the dome of the right hemidiaphragm, question pulmonary nodule. Neoplasm not excluded. Confirmation of further evaluation with CT recommended. Narrative 12/12/2017 11:28 AM EDT EXAMINATION: XR CHEST PA AND LATERAL (GENERIC) CLINICAL HISTORY: persistent cough and dyspnea TECHNIQUE: PA and lateral views of the chest. ? COMPARISON: 12/14/2010. FINDINGS: Linear scarring versus atelectasis at the right base as well as an approximately 7 mm nodular opacity on the frontal projection, not definitely present on the lateral view, but new from the 2010 chest radiograph. No other interval pulmonary findings identified. The cardiomediastinal silhouette, trenton, pulmonary vessels, and pleura are within normal limits. No significant interval osseous findings are seen. Resulting Agency Comment Unexpected Finding Henrietta Null MD IMG DX ORDERABLES documented in this encounter Visit Diagnoses Diagnosis Cough, persistent Cough documented in this encounter Care Teams Event Attendant Relationship Specialty Start Date End Date Henrietta Null MD [facility] [address] [place] [address] PCP - General 12/20/10 05/08/20 documented as of this encounter
--- OUTSIDE RECORDS SUMMARY | 2024-04-23 12:16 | XMS_ITS | Encounter Summary ---
Author Organization [facility] [place] [address] Care Team Providers Care Label Tacker Name Role Phone Henrietta Null MD Primary Care Provider [phone] Reason for Visit * Reason Onset Date Comments Triage 05/27/2016 Encounter Details Date Type Department Care Team (Late st Contact Info) Description 05/27/2016 Telephone Internal Medicine at [address] [address] Coreen Klein Triage Social History Tobacco Use Types Packs/Day [...] Telephone Encounter - Bruna Conner RN - 05/27/2016 3:45 PM EDT TC to patient. Caller: patient Learning Needs Assessment Reviewed: Yes Subjective Patient presents with: Triage bit by a deer fly on Friday, which was different from normal deer fly; it was a black one. Last time she was bitten by a deer fly, she used ibuprofen successfully for the swelling and wanted to know if she could do it again safely. Site on her leg was quite swollen but has improved with ibuprofen. She tried ice, Benadryl and Cortaid for the itching and swelling, but the ibuprofen was the only treatment that finally helped. Wanted to know if she was doing the right thing. She had even used bug spray. Objective/Assessment Symptom onset: Location: Duration: Characteristics: Aggravating factors: Relieving factors: Timing: Severity: Pertinent Past Medical History: Plan Intervention/Plan/ Follow Up: Advised to observe bite site for sx of infection, ie drainage, incr redness/pain/induration, and to call back if these sx occur; otherwise advised to continue with icingand ibuprofen only until swelling has receded. * Telephone Encounter - Coreen Klein - 05/27/2016 3:34 PM EDT Message: Patient calling, had a black deer fly bite. She is taking advil it is helping but would like to know if she should do something else to prevent it from getting so bad again. Please advise Caller and relationship (if other than patient-full name): Self Best time to call back: any Ok to leave a message: [y] Ok to send my- message: [n] Offered Appointment: Nurse contacted via: Message: x Call: Pager: documented in this encounter Plan of Treatment Upcoming Encounters Date Type Department Care Team (Late st Contact Info) Description 07/07/2024 11:00 AM EDT Office Visit Cardiology at [address] [phone] Lorena Lawrence MD [facility] [place] [address] documented as of this encounter Visit Diagnoses Not on filedocumented in this encounter Care Teams Label Tacker Relationship Specialty Start Date End Date Henrietta Null MD [facility] [address] [address] PCP - General 12/20/10 05/08/20 documented as of this encounter
--- OUTSIDE RECORDS SUMMARY | 2024-04-23 12:16 | XMS_ITS | Encounter Summary ---
Author Organization [facility] [place] [address] Care Team Providers Care Cardiac Cath Rn Name Role Phone Henrietta Null MD Primary Care Provider [phone] Reason for Visit * Reason Comments Cough Chest and nasal wes estion. x 3 weeks. Encounter Details Date Type Department Care Team (Late st Contact Info) Description 10/20/2017 8:40 AM EST Office Visit Internal Medicine at [address] [address] Vale Burton APRN [facility] [place] [address] Community acquired pneumonia, unspecified laterality Social History Tobacco Use Types Packs/Day Years [...] Sign Reading Time Taken Comments Blood Pressure 128/59 10/20/2017 8:23 AM EST Pulse 65 10/20/2017 8:23 AM EST Temperature 36.7 ??C (98 ??F) 10/20/2017 8:23 AM EST Respiratory Rate 16 10/20/2017 8:23 AM EST Oxygen Saturation 100% 10/20/2017 8:23 AM EST Inhaled Oxygen Concentration - - Weight 53.5 kg (118 lb) 10/20/2017 8:23 AM EST Height - - Body Mass Index 23.32 03/21/2017 9:55 AM EDT documented in this encounter Progress Notes * TheoKaushiksalinas Hartley - 10/20/2017 8:40 AM EST ESTABLISHED PATIENT VISIT I. HISTORY a. Reason(s) for Visit: Heike Ramires 72 y.o. female who presents today due to complaint(s) of: Chief Complaint Patient presents with ??? Cough Chest and nasal congestion. x 3 weeks. b. History of Present Illness: Pt reports her sx started 3 weeks ago with BRAGA and congestion which have been getting worse. Now reports that she is coughing the whole time. Having a hard time breathing over the last week. Has taken Mucinex and nothing is working. In the morning, cough is productive of yellow-green sputum. Otherthan that, feels like there is always something there. Last time she took temp was 1 day ago, was 103 F. Took an aspirin this morning. Pt denies sick contacts, recent use of abx, recent hospitalization. She had a similar episode last year that was treated with azithromycin. Pt received her influenza vaccine this year. c. Review of Systems: Constitutional - no fevers, chills, weight loss or gain, fatigue Cardiovascular - No CP, palpitations, angina, KRUGER, SOB Respiratory - No SOB, KRUGER, wheeze, cough, sputum production HEENT - No diffculty swallowing, hearing, No nasal congestion or postnasal drip Gastrointestinal - No abdominal pain, nausea, GERD, [...] adequate Colon Cancer Screening: Colonoscopy 03/12 + [facility] Osteoporosis Screening: Dexa 2012, lowest - [...] Alcohol use No II. PHYSICAL EXAM: BP 128/59 Pulse 65 Temp 36.7 ??C (98 ??F) (Oral) Resp 16 Wt 53.5 kg (118 lb) SpO2 100% BMI 23.32 kg/m2 General - No acute distress, conversing without difficulty. ENT - oropharynx without lesions. Eyes - EOMI. No scleral icterus Neck - No lymphadenopathy, supple, no masses Lungs - Coarse breath sounds in the lower posterior lung thomas bilaterally. Crackles in the L lower posterior lung field. Heart - RRR, S1,S2, no murmur, gallop or rub. Abdomen/GI - Soft, nontender, normal active bowel sounds, neg hsm or masses. Extremities - No clubbing, cyanosis or edema. Pulses intact. III. ASSESSMENT/PLAN:Heike Ramires 72 y.o. female presenting with persistent cough, fever and shortness of breath concerning for CAP. Plan as detailed below: #community-acquired pneumonia -augmentin xr 2g BID for 7d -Tessalon perles for symptomatic relief of cough Meds reconciled * Vale Burton APRN - 10/20/2017 8:40 AM EST PCP: Henrietta Null MD Chief Complaint Patient presents with ??? Cough Chest and nasal congestion. x 3 weeks. SUBJECTIVE: Heike Ramires is a 72 y.o. female who presents for cough and chest congestion for 3 weeks. She reports that it started with headache and congestion. She reports that she has had increased difficulty breathing. She reports that her temp was 102 yesterday. She took aspirin this morning. She has had cough productive with yellow- green sputum. Review of Systems Constitutional: Positive for fatigue and fever. Negative for chills. HENT: Positive for congestion, sinus pain and sinus pressure. Negative for ear pain, rhinorrhea andsore throat. Respiratory: Positive for cough and shortness of breath. Negative for wheezing. Cardiovascular: Negative for chest pain and palpitations. Gastrointestinal: Positive for diarrhea (loose). Negative for abdominal pain and vomiting. Skin: Negative for rash. Neurological: Negative for weakness, light-headedness and headaches. Hematological: Negative for adenopathy. Allergies Allergen Reactions ??? Methadone Hcl headaches ??? Morphine Sulfate Nausea And Vomiting ??? Oxidized Glycerol Triesters headache ??? Oxycodone Hcl severe headaches ??? Codeine Phosphate stomach ache Current Outpatient Prescriptions Medication Sig Dispense Refill ??? fluticasone (FLONASE) 50 mcg/actuation [place], Suspension 1 spray by Each Nare route daily. 16 g11 ??? albuterol (PROVENTIL HFA;VENTOLIN HFA;PROAIR) 90 mcg/actuation [...] No current facility-administered medications for this visit. Patient Active Problem List Diagnosis Code ??? Ovarian fibroma D27.9 ??? Osteoporosis M81.0 ??? Trigeminal neuralgia G50.0 ??? Preventative health care Z00.00 ??? Trigger fingers, left thumb and ring, right ring M65.30 ??? 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 Skin lesion of hand L98.9 ??? Other specified aftercare following surgery Z48.89 OBJECTIVE: Vitals: 10/20/17 0823 BP: 128/59 Pulse: 65 Resp: 16 Temp: 36.7 ??C (98 ??F) TempSrc: Oral SpO2: 100% Weight: 53.5 kg (118 lb) PHYSICAL EXAM: Physical Exam Constitutional: She is oriented to person, place, and time. She appears well- developed and well-nourished. She appears ill. HENT: Head: Normocephalic and atraumatic. Right Ear: Tympanic membrane, external ear and ear canal normal. Left Ear: Tympanic membrane, external ear and ear canal normal. Nose: Nose normal. Right sinus exhibits no maxillary sinus tenderness and no frontal sinus tenderness. Left sinus exhibits no maxillary sinus tenderness and no frontal sinus tenderness. Mouth/Throat: Oropharynx is clear and moist. Eyes: Conjunctivae are normal. Pupils are equal, round, and reactive to light. Cardiovascular: Normal rate, regular rhythm and normal heart sounds. Pulmonary/Chest: Effort normal. No respiratory distress. She has no wheezes. She has rales. Frequent cough. Lymphadenopathy: She has no cervical adenopathy. Neurological: She is alert and oriented to person, place, and time. Skin: Skin is warm and dry. Psychiatric: She has a normal mood and affect. ASSESSMENT & PLAN: Heike was seen today for cough. Diagnoses and all orders for this visit: Community acquired pneumonia, unspecified laterality - amoxicillin-clavulanate (AUGMENTIN) 875-125 mg Tablet; Take 1 tablet by mouth 2 times daily. - fluticasone (FLONASE) 50 mcg/actuation [place], Suspension; 1 spray by Each Nare route daily. - benzonatate (TESSALON) 100 mg Capsule; Take 1 capsule by mouth 3 times daily as needed for Cough. Addendum- added azithromycin in addition augmentin for dual therapy given her high fevers. documented in this encounter Plan of Treatment Upcoming Encounters Date Type Department Care Team (Late st Contact Info) Description 07/07/2024 11:00 AM EDT Office Visit Cardiology at [address] [place] [phone] Lorena Lawrence MD [facility] [place] [address] documented as of this encounter Visit Diagnoses Diagnosis Community acquired pneumonia, unspecified laterality documented in this encounter Care Teams Cardiac Cath Rn Relationship Specialty Start Date End Date Henrietta Null MD [facility] [address] [place] [address] PCP - General 12/20/10 05/08/20 documented as of this encounter
--- OUTSIDE RECORDS SUMMARY | 2024-04-23 12:16 | XMS_ITS | Encounter Summary ---
Author Organization [facility] Address [facility] [place] [address] Care Team Providers Care Clinical Support Manager Name Role Phone Henrietta Null MD Primary Care Provider [phone] Reason for Visit * Reason Comments Referral * Consultation (Hospitalist (2 weeks)) - Closed Specialty Diagnoses / Procedures Referred By Contac t Referred To Contact Pulmonology Diagnoses Acute upper respiratory infection Magno Corrigan MD [facility] [place] [address] [facility] [address] [place] [address] Referral ID Status Reason Start Date Expiration Date V isits Requested Visits Authorized [id number] Closed Consult, Test & Treat 12/15/2017 12/15/2018 1 1 Encounter Details Date Type Department Care Team (Latest Contact Info) Description 12/29/2017 9:00 AM EDT Office [place] [address] Yovani Swanson MD [facility] [place] [address] KRUGER (dyspnea on exertion); Mild persistent asthma, uncomplicated Social History Tobacco [...] Sign Reading Time Taken Comments Blood Pressure 123/65 12/29/2017 8:46 AM EDT Pulse 67 12/29/2017 8:46 AM EDT Temperature - - Respiratory Rate 20 12/29/2017 8:46 AM EDT Oxygen Saturation 97% 12/29/2017 8:46 AM EDT Inhaled Oxygen Concentration - - Weight 55.8 kg (123 lb) 12/29/2017 8:46 AM EDT Height 149.4 cm (4' 10.8) 12/29/2017 8:46 AM ED T Body Mass Index 25.01 12/29/2017 8:46 AM EDT documented in this encounter Patient Instructions * Patient Instructions* Yovani Swanson MD - 12/29/2017 9:00 AM EDT You will start Arnuity ellipta ( new inhaler ) One actuation once daily You don't need a spacer forthis. For the next 2 weeks, You could use Ventolin before using the other inhaler. ( so that you could get the new one better). After 2 weeks, you use Ventolin only as needed but continue Arnuity Ellipta regularly. documented in this encounter Progress Notes * Yovani Swanson MD - 12/29/2017 9:00 AM EDT Pulmonary Clinic Consult Note Reason for Consult: I was asked by Henrietta Null MD to evaluate this patient for I have personally interviewed and examined the patient, reviewed history, radiographic studies( if any) and laboratory data(if any). HPI: This is a 72 y.o. female, never smoker, was referred to me for evaluation of a couple months history of chronic cough with shortness of breath. This??is a 72 y.o.??female, never a smoker??with a past medical history of ovarian fibroma, osteoporosis and trigeminal neuralgia BUT NO HX of prior respiratory illness, presents here with 3 months history of cough and exertional dyspnea. Patient symptoms started about 3 months ago with cough, shortness of breath, fever and chills. ??She was diagnosed with pneumonia and started on Z-Michele plus Augmentin. ??Her symptoms improved a littlebut later developed persistent cough with yellow mucoid sputum, postnasal drip and shortness of breath. ??She was given Flonase and Afrin that improved her symptoms slightly. She was seen again at her PCPs office on 11/18/2017, diagnosed with acute sinusitis and treated with doxycycline 100 mg twicedaily for 7 days. ??She continued to have symptoms and saw her PCP on 12/11/2017. ??At that time shewas tachypneic and tachycardic and borderline hypoxic with ambulation. ??Her oxygen saturations were 88-90 with ambulation at PCPs office. ??Chest x-ray showed no acute cardiopulmonary process. ??There was a concern of pulmonary embolism as well, CT chest was done to rule out PE and it was unremarkable. ? On 12/14/2017, she presented to [facility], with persistent symptoms of cough with yellowish sputum production, postnasal drip, shortness of breath with exertion. ??She also endorses wheezing with shortness of breath as well. ? In the emergency department, at rest her oxygen saturation is??at low 90s. ??With ambulation she dropped her oxygenation to 86% on room air. ??Chest x-ray did not show any acute pathology. ?? She wasadmitted to the hospital. She was given DuoNeb treatment and started on a course of prednisone withimprovement in her symptoms. Overnight she continued to improve and discharged on the next day. Today she had a PFT, which demonstrated mild flow obstruction ( the ratio 59%, FEV1 91%). She is on ventolin HFA 3 times a day, on which she does not notice any major benefits. He has some clinical allergy to pollen, though allergies have never been a big issue. Problem List: Patient Active Problem List Diagnosis Date Noted ??? Other specified aftercare following surgery 05/13/2012 ??? Skin lesion of hand 04/29/2012 ??? Nevus, atypical - foot 04/22/2012 ??? Trigger fingers, left thumb and ring, right ring 02/06/2012 ??? Preventative health care 01/10/2012 ??? Ovarian fibroma 01/08/2011 ??? Osteoporosis 01/08/2011 ??? Trigeminal neuralgia 01/08/2011 PMHx: Past Medical History: Diagnosis Date ??? Dysplastic nevus FHx: Family History Problem Relation Age of Onset ??? Aneurysm Father cerebral aneurysm ??? Abdominal Aortic Aneurysm Father ??? Lupus Mother ??? Colorectal Cancer Sister ??? Pancreatic Cancer Sister ?pancreatic duct CA ??? Chronic Obstructive Pulmonary Disease Sister ??? * Sister diverticulitis ??? Breast Cancer Neg Hx Social Hx: Social History Substance Use Topics ??? Smoking status: Never Smoker ??? Smokeless tobacco: Never Used ??? Alcohol use No Tobacco: Work/Environmental: No industrial exposure. No pets in the house. 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 there are dogs or cats in 4/6 houses. Allergy: Allergies Allergen Reactions ??? Methadone Hcl headaches ??? Morphine Sulfate Nausea And Vomiting ??? Oxidized Glycerol Triesters headache ??? Oxycodone Hcl severe headaches ??? Codeine Phosphate stomach ache Medications: Outpatient Prescriptions Marked as Taking for the 12/29/17 encounter (Office Visit) with Yovani Swanson MD Medication Sig Dispense Refill ??? albuterol 90 mcg/actuation HFA Aerosol Inhaler Inhale 1 puff into the lungs 4 times daily. Use with spacer 1 Inhaler 1 ??? omeprazole (PRILOSEC) 40 mg Capsule, Delayed Release(E.C.) Take 1 capsule by mouth daily for 30days. 30 capsule 0 ??? fluticasone (FLONASE) 50 mcg/actuation [place], Suspension 1 spray by Each Nare route daily. 16 g11 ??? CALCIUM LACTATE ORAL Take by mouth. ??? INOSITOL ORAL Take by mouth. ??? cholecalciferol, Vitamin D3, (VITAMIN D) 1,000 unit Tab tablet Take 1 tablet by mouth daily. ??? cyanocobalamin (VITAMIN B-12) 1,000 mcg tablet ROS: x: positive. [ ] Shortness of breath [ ] Abdominal pain or bloating [ ] Frequent or chronic cough [ ] Weight gain or loss [ ] Coughing up blood [ ] Chest pain [ ] Nose, sinus, mouth, throat problems [ ] Palpitations or flutter [ ] Fevers or severe chills [ ] Swelling of hands feet ankles [ ] Night sweats [ ] Convulsions or seizures [ ] Enlarged or swollen lymph glands [ ] Frequent or severe headache [ ] Skin disease or rash [ ] Fainting or loss of consciousness [ ] Easy bruising or bleeding [ ] Extreme fatigue or weakness [ ] Significant joint pains or stiffness [ ] Depression [ ] Changes in bowel habits [ ] Changes in sleep pattern [ ] Changes in appetite [ ] All unmarked were reviewed and found negative. [ ] other system: Vitals and Physical Exam: BP 123/65 Pulse 67 Resp 20 Ht 149.4 cm (4' 10.8) Wt 55.8 kg (123 lb) SpO2 97% BMI 25.01 kg/m2 Gen: comfortable. Normal breathing pattern and rate. HEENT: Pupils equal and round. EOMI, Moist oral mucosal membrane wto lesions , eyes wto injection or exudates. No thrush Neck: No stridor No cervical LAP Chest: CTA without wheezing/rhonchi/crackles Symmetric excursion. Cor: RRR, S1S2, No MRG. Abd: ND Extrem: no C/C/E. Skin no rashes or lesions Musculoskeletal no joint swelling, tenderness, redness or deformities Neuro: no focal deficits Labs/Tests: Diagnostic studies: -CXR: 12/14/2017 COMPARISON: Chest radiographs and CT December 12, 2017. ?? FINDINGS: Mild streaky basilar subsegmental atelectasis and/or scarring. No confluent airspace opacity, pleural effusion, or pneumothorax definitively identified. Cardiomediastinal contours within normal limits for age. ?? IMPRESSION No acute cardiopulmonary process seen. -CT: 12/12/2017 Pulmonary arteries: No pulmonary arterial filling defects. ?? Other cardiovascular structures: No significant findings. ?? Pulmonary parenchyma: Mild bibasilar atelectasis. No discrete nodule corresponding with recent chest radiograph. Airways: No significant findings. Pleura: No significant findings. Lymph nodes: No significant findings. Other mediastinal structures: No significant findings. Upper abdomen: No significant findings. Skeletal structures: No significant findings. ?? IMPRESSION No pulmonary embolism or other significant abnormality.. -PFTs: date FVC FEV1 FEV/FVC VC TLC RV RV/TLC Dsb SpO2 FENO 12/29/2017 2.67 115 1.58 91 59 11.72 65 20 SpO2 94--->92-95 after 6 mins walk. -ECHO: -Serology: -PET: -Biopsy: -Other: Labs Summary: -obstructive lung disease Impression/recommendation: -72 yo woman never a smoker, presented [...] was not elevated. -no emphysema on CT. -Her data fits best to the dx [...] spacer. Demonstration for arnuity ellipta was done. 50 mins were spent in a face to face conversation with the patient (and accompanying family members, if present) regarding my impressions and recommendations and providing counseling. All the questions were answered. . Separately, I have spent an additional time in reviewing charts/records/labs/tests, or discussion with other health care providers. This does NOT include the time spent in ( ) Smoking cessation counseling ( x ) inhaler technique demonstration and teaching. ( checked if applicable) - I personally reviewed (x ) radiographic images. ( x ) pulmonary function testing DATA ( ) Laboratory DATA ( apply if checked ) Thank you very much for participating in the care of this patient. Please contact us at [phone] for any further questions or requests. documented in this encounter Miscellaneous Notes * Addendum Note - Stefania Yuan - 12/29/2017 10:28 AM EDTAddended by: STEFANIA YUAN on: 12/29/2017 10:28 AM Modules accepted: Orders documented in this encounter Plan of Treatment Upcoming Encounters Date Type Department Care Team (Late st Contact Info) Description 07/07/2024 11:00 AM EDT Office Visit Cardiology at [address] [place] [address] Lorena Lawrence MD [facility] [place] [address] Scheduled Orders Name Type Priority Associated Diagnoses Orde r Schedule A1AT Serum Concentration Lab Routine KRUGER (dyspnea on exertion) Mild persistent asthma, uncomplicated Expected: 12/29/2017 (Approximate), Expires: 12/29/2018 documented as of this encounter Procedures Procedure Name Priority Date/Time Associated Diagnosis Comments A1AT GENOTYPE Routine 12/29/2017 10:36 AM EDT KRUGER (dyspnea on exertion) Mild persistent asthma, uncomplicated ALTERNARIA TENUIS, IGE Routine 8 10:36 AM EDT KRUGER (dyspnea on exertion) IMMUNOGLOBULIN E (IGE) Routine 8 10:36 AM EDT KRUGER (dyspnea on exertion) HOUSE DUST MITES/D.F., IGE Routine 12/29/2017 10:36 AM EDT KRUGER (dyspnea on exertion) HOUSE DUST MITES/D.P., IGE Routine 12/29/2017 10:36 AM EDT KRUGER (dyspnea on exertion) A1AT GENOTYPE PROFILE Routine 12/29/2017 10:36 AM EDT KRUGER (dyspnea on exertion) Mild persistent asthma, uncomplicated [place] IGE Routine 12/29/2017 10:36 AM EDT KRUGER (dyspnea on exertion) POGUC-1-[id number] Routine 12/29/2017 1 0:36 AM EDT KRUGER (dyspnea on exertion) Mild persistent asthma, uncomplicated ELM IGE Routine 12/29/2017 10:36 AM EDT KRUGER (dyspnea on exertion) BIRCH, SILVER IGE Routine 12/29/2017 10: 36 AM EDT KRUGER (dyspnea on exertion) DOG EPITHELIUM IGE Routine 12/29/2017 10 :36 AM EDT KRUGER (dyspnea on exertion) ASPERGILLUS FUMIGATUS IGE Routine 12/29/2017 10:36 AM EDT KRUGER (dyspnea on exertion) CAT EPITHELIUM IGE Routine 12/29/2017 10 :36 AM EDT KRUGER (dyspnea on exertion) HICKORY, WHITE IGE Routine 12/29/2017 10 :36 AM EDT KRUGER (dyspnea on exertion) RAGWEED, SHORT/ COMMON IGE Routine 12/29/2017 10:36 AM EDT KRUGER (dyspnea on exertion) ISAURO GRASS IGE Routine 12/29/2017 10: 36 AM EDT KRUGER (dyspnea on exertion) MAPLE / BOX ELDER IGE Routine 12/29/2017 10:36 AM EDT KRUGER (dyspnea on exertion) BEECH IGE Routine 12/29/2017 10:36 AM EDT KRUGER (dyspnea on exertion) WILL, WHITE IGE Routine 12/29/2017 10:36 AM EDT KRUGER (dyspnea on exertion) documented in [...] and treat asthma.?? Guidelines from a 2011 [place] [employer] (ATS) executive summary on the [...] MD Yovani Swanson MD PFT ORDERABLES * A1AT Genotype (12/29/2017 10:36 AM EDT) [facility] A1AT Genotype A1AT (SERPINA1) GENOTYPING RESULTS: S ALLELE: NOT DETECTED Z ALLELE: NOT DETECTED INTERPRETATION: The absence of both the S and Z alleles in this patient along with a separate test showing normal levels of A1AT protein (139 mg/dL) in this patient? s serum suggest this patient does not have an A1AT deficiency. Although the S and Z alleles were not detected by this test, the presence of other less common A1AT variants cannot be excluded. ??These results should be interpreted based on the complete clinical presentation which may warrant additional testing and/or a genetic consultation. METHOD: Two regions of interest in the serpin peptidase inhibitor, clade A (alpha-1 antiproteinase, antitrypsin), member 1 gene (SERPINA1), commonly alpha-1 anti-trypsin or A1AT) that are known to contain variant alleles resulting in the ? S? phenotype ([id number]:c.863 A>T; [id number]) and the ? Z? phenotype (c. 1096G>A; [id number]) are amplified and genotyped by two separate PCR assays each containing two primers for amplification and two probes for detection the normal and variant alleles. ??Genomic DNA used in this testing was isolated from peripheral blood. LIMITATIONS AND DISCLAIMERS: ??Although unlikely, rare variants or polymorphisms (known or unknown) have the potential to interfere with the performance of this test, producing false negative or false positive results. ??When genotyping results are not consistent with other clinical observations or test results, additional testing should be considered. This test was developed and its performance characteristics determined by the [facility] ([facility] at [facility]. It has not been cleared or approved by the FDA. The laboratory is regulated under CLIA as qualified to perform high-complexity testing. This test is used for clinical purposes. It should not be regarded as investigational or for research. [facility] Comment: [VERIFIED DATE]01.08.18 Verified By:Kacey Osullivan MD Pathologist (Electronic Signature) Blood specimen (specimen) 12/29/2017 10:36 AM EDT 12/29/2017 12:53 PM EDT Narrative Resulting Agency Comment Spec In Lab Yovani Swanson MD CHEMISTRY ORDERABLES [facility] [place] [address] * A1AT Serum Concentration (12/29/2017 10:36 AM EDT) A1AT 139 90 - 200 mg/dL [facility] Comment: To convert [id number]-8-[id number] to SI unit (umol/L), multiply result (mg/dL) by 0.184. Blood specimen (specimen) 12/29/2017 10:36 AM EDT 12/29/2017 10:46 AM EDT Narrative Resulting Agency Comment Spec In Lab Yovani Swanson MD CHEMISTRY ORDERABLES [facility] [place] [address] * Immunoglobulin E (IgE) (12/29/2017 10:36 AM EDT) Pathologist [facility] IgE 29 <=101 kU/L [facility] Comment: Pediatric age-specific reference ranges are reflected in result ranges. Adult reference ranges: <25 kU/L ??Normal 25-100 kU/L Equivocal >100 kU/L ??Elevated Blood specimen (specimen) 12/29/2017 10:36 AM EDT 12/29/2017 12:22 PM EDT Narrative Resulting Agency Comment Spec In Lab Yovani Swanson MD IMMUNOLOGY ORDERABLE S [facility] [place] [address] * Enma Yee IgE (12/29/2017 10:36 AM EDT) Enma Yee IgE <0.35 kU/L [facility] Comment: Reference Ranges <0.35 kU/L Class 0: ??Normal 0.35-0.69 kU/L Class 1: ??Low level of allergy, indicative of ongoing sensitization 0.70-3.49 kU/L Class 2: ??Moderate level of allergy, indicative of stronger ongoing sensitization 3.50-17.49 kU/L Class 3: ??High level of allergy, indicative of high level sensitization 17.5-49.9 kU/L Class 4: Very high level of allergy, indicative of very high level sensitization 50.0-100 kU/L Class 5: Very high level of allergy, indicative of very high level sensitization >100 kU/L Class 6: Very high level of allergy, indicative of very high level sensitization Blood specimen (specimen) 12/29/2017 10:36 AM EDT 12/29/2017 12:22 PM EDT Narrative Resulting Agency Comment Spec In Lab Yovani Swanson MD IMMUNOLOGY ORDERABLE S Performing Organization Address City/[facility]/ZIP Co de Phone Number [facility] [place] [address] * Will, White IgE (12/29/2017 10:36 AM EDT) White Will IgE <0.35 kU/L [facility] Comment: Reference Ranges <0.35 kU/L Class 0: ??Normal 0.35-0.69 kU/L Class 1: ??Low level of allergy, indicative of ongoing sensitization 0.70-3.49 kU/L Class 2: ??Moderate level of allergy, indicative of stronger ongoing sensitization 3.50-17.49 kU/L Class 3: ??High level of allergy, indicative of high level sensitization 17.5-49.9 kU/L Class 4: Very high level of allergy, indicative of very high level sensitization 50.0-100 kU/L Class 5: Very high level of allergy, indicative of very high level sensitization >100 kU/L Class 6: Very high level of allergy, indicative of very high level sensitization Blood specimen (specimen) 12/29/2017 10:36 AM EDT 12/29/2017 12:22 PM EDT Narrative Resulting Agency Comment Spec In Lab Yovani Swanson MD IMMUNOLOGY ORDERABLE S Performing Organization Address City/[facility]/ZIP Co de Phone Number [facility] [place] [address] * Isauro Grass IgE (12/29/2017 10:36 AM EDT) Isauro Grass IgE <0.35 kU/L [facility] Comment: Reference Ranges <0.35 kU/L Class 0: ??Normal 0.35-0.69 kU/L Class 1: ??Low level of allergy, indicative of ongoing sensitization 0.70-3.49 kU/L Class 2: ??Moderate level of allergy, indicative of stronger ongoing sensitization 3.50-17.49 kU/L Class 3: ??High level of allergy, indicative of high level sensitization 17.5-49.9 kU/L Class 4: Very high level of allergy, indicative of very high level sensitization 50.0-100 kU/L Class 5: Very high level of allergy, indicative of very high level sensitization >100 kU/L Class 6: Very high level of allergy, indicative of very high level sensitization Blood specimen (specimen) 12/29/2017 10:36 AM EDT 12/29/2017 12:22 PM EDT Narrative Resulting Agency Comment Spec In Lab Yovani Swanson MD IMMUNOLOGY ORDERABLE S [facility] [place] [address] * [place] IgE (12/29/2017 10:36 AM EDT) [place] IgE <0.35 kU/L [facility] Comment: Reference Ranges <0.35 kU/L Class 0: ??Normal 0.35-0.69 kU/L Class 1: ??Low level of allergy, indicative of ongoing sensitization 0.70-3.49 kU/L Class 2: ??Moderate level of allergy, indicative of stronger ongoing sensitization 3.50-17.49 kU/L Class 3: ??High level of allergy, indicative of high level sensitization 17.5-49.9 kU/L Class 4: Very high level of allergy, indicative of very high level sensitization 50.0-100 kU/L Class 5: Very high level of allergy, indicative of very high level sensitization >100 kU/L Class 6: Very high level of allergy, indicative of very high level sensitization Blood specimen (specimen) 12/29/2017 10:36 AM EDT 12/29/2017 12:22 PM EDT Narrative Resulting Agency Comment Spec In Lab Yovani Swanson MD IMMUNOLOGY ORDERABLE S Performing Organization Address [facility]/ZIP Co de Phone Number [facility] [place] [address] * Ragweed, short/ common IgE (12/29/2017 10:36 AM EDT) Ragweed IgE <0.35 kU/L [facility] Comment: Reference Ranges <0.35 kU/L Class 0: ??Normal 0.35-0.69 kU/L Class 1: ??Low level of allergy, indicative of ongoing sensitization 0.70-3.49 kU/L Class 2: ??Moderate level of allergy, indicative of stronger ongoing sensitization 3.50-17.49 kU/L Class 3: ??High level of allergy, indicative of high level sensitization 17.5-49.9 kU/L Class 4: Very high level of allergy, indicative of very high level sensitization 50.0-100 kU/L Class 5: Very high level of allergy, indicative of very high level sensitization >100 kU/L Class 6: Very high level of allergy, indicative of very high level sensitization Blood specimen (specimen) 12/29/2017 10:36 AM EDT 12/29/2017 12:22 PM EDT Narrative Resulting Agency Comment Spec In Lab Yovani Swanson MD IMMUNOLOGY ORDERABLE S [facility] [place] [address] * House Dust Mites/D.P., IgE (12/29/2017 10:36 AM EDT) Mites/D.P. IgE <0.35 kU/L [facility] Comment: Reference Ranges <0.35 kU/L Class 0: ??Normal 0.35-0.69 kU/L Class 1: ??Low level of allergy, indicative of ongoing sensitization 0.70-3.49 kU/L Class 2: ??Moderate level of allergy, indicative of stronger ongoing sensitization 3.50-17.49 kU/L Class 3: ??High level of allergy, indicative of high level sensitization 17.5-49.9 kU/L Class 4: Very high level of allergy, indicative of very high level sensitization 50.0-100 kU/L Class 5: Very high level of allergy, indicative of very high level sensitization >100 kU/L Class 6: Very high level of allergy, indicative of very high level sensitization Blood specimen (specimen) 12/29/2017 10:36 AM EDT 12/29/2017 12:22 PM EDT Narrative Resulting Agency Comment Spec In Lab Yovani Swanson MD IMMUNOLOGY ORDERABLE S Performing Organization Address [facility]/ZIP Co de Phone Number [facility] [place] [address] * House Dust Mites/D.F., IgE (12/29/2017 10:36 AM EDT) [facility] Signature Mites/D.F. IgE <0.35 kU/L [facility] Comment: Reference Ranges <0.35 kU/L Class 0: ??Normal 0.35-0.69 kU/L Class 1: ??Low level of allergy, indicative of ongoing sensitization 0.70-3.49 kU/L Class 2: ??Moderate level of allergy, indicative of stronger ongoing sensitization 3.50-17.49 kU/L Class 3: ??High level of allergy, indicative of high level sensitization 17.5-49.9 kU/L Class 4: Very high level of allergy, indicative of very high level sensitization 50.0-100 kU/L Class 5: Very high level of allergy, indicative of very high level sensitization >100 kU/L Class 6: Very high level of allergy, indicative of very high level sensitization Blood specimen (specimen) 12/29/2017 10:36 AM EDT 12/29/2017 12:22 PM EDT Narrative Resulting Agency Comment Spec In Lab Yovani Swanson MD IMMUNOLOGY ORDERABLE S [facility] [place] [address] * Elm IgE (12/29/2017 10:36 AM EDT) [place]m IgE <0.35 kU/L [facility] Comment: Reference Ranges <0.35 kU/L Class 0: ??Normal 0.35-0.69 kU/L Class 1: ??Low level of allergy, indicative of ongoing sensitization 0.70-3.49 kU/L Class 2: ??Moderate level of allergy, indicative of stronger ongoing sensitization 3.50-17.49 kU/L Class 3: ??High level of allergy, indicative of high level sensitization 17.5-49.9 kU/L Class 4: Very high level of allergy, indicative of very high level sensitization 50.0-100 kU/L Class 5: Very high level of allergy, indicative of very high level sensitization >100 kU/L Class 6: Very high level of allergy, indicative of very high level sensitization Blood specimen (specimen) 12/29/2017 10:36 AM EDT 12/29/2017 12:22 PM EDT Narrative Resulting Agency Comment Spec In Lab Yovani Swanson MD IMMUNOLOGY ORDERABLE S [facility] [place] [address] * Dog Epithelium IgE (12/29/2017 10:36 AM EDT) Dog Epi IgE <0.35 kU/L [facility] Comment: Reference Ranges <0.35 kU/L Class 0: ??Normal 0.35-0.69 kU/L Class 1: ??Low level of allergy, indicative of ongoing sensitization 0.70-3.49 kU/L Class 2: ??Moderate level of allergy, indicative of stronger ongoing sensitization 3.50-17.49 kU/L Class 3: ??High level of allergy, indicative of high level sensitization 17.5-49.9 kU/L Class 4: Very high level of allergy, indicative of very high level sensitization 50.0-100 kU/L Class 5: Very high level of allergy, indicative of very high level sensitization >100 kU/L Class 6: Very high level of allergy, indicative of very high level sensitization Blood specimen (specimen) 12/29/2017 10:36 AM EDT 12/29/2017 12:22 PM EDT Narrative Resulting Agency Comment Spec In Lab Yovani Swanson MD IMMUNOLOGY ORDERABLE S [facility] [place] [address] * Cat Epithelium IgE (12/29/2017 10:36 AM EDT) Cat Epi IgE <0.35 kU/L [facility] Comment: Reference Ranges <0.35 kU/L Class 0: ??Normal 0.35-0.69 kU/L Class 1: ??Low level of allergy, indicative of ongoing sensitization 0.70-3.49 kU/L Class 2: ??Moderate level of allergy, indicative of stronger ongoing sensitization 3.50-17.49 kU/L Class 3: ??High level of allergy, indicative of high level sensitization 17.5-49.9 kU/L Class 4: Very high level of allergy, indicative of very high level sensitization 50.0-100 kU/L Class 5: Very high level of allergy, indicative of very high level sensitization >100 kU/L Class 6: Very high level of allergy, indicative of very high level sensitization Blood specimen (specimen) 12/29/2017 10:36 AM EDT 12/29/2017 12:22 PM EDT Narrative Resulting Agency Comment Spec In Lab Yovani Swanson MD IMMUNOLOGY ORDERABLE S [facility] [place] [address] * Birch, silver IgE (12/29/2017 10:36 AM EDT) Silver Birch IgE <0.35 kU/L [facility] Comment: Reference Ranges <0.35 kU/L Class 0: ??Normal 0.35-0.69 kU/L Class 1: ??Low level of allergy, indicative of ongoing sensitization 0.70-3.49 kU/L Class 2: ??Moderate level of allergy, indicative of stronger ongoing sensitization 3.50-17.49 kU/L Class 3: ??High level of allergy, indicative of high level sensitization 17.5-49.9 kU/L Class 4: Very high level of allergy, indicative of very high level sensitization 50.0-100 kU/L Class 5: Very high level of allergy, indicative of very high level sensitization >100 kU/L Class 6: Very high level of allergy, indicative of very high level sensitization Blood specimen (specimen) 12/29/2017 10:36 AM EDT 12/29/2017 12:22 PM EDT Narrative Resulting Agency Comment Spec In Lab Yovani Swanson MD IMMUNOLOGY ORDERABLE S [facility] [place] [address] * Maple / Burke IgE (12/29/2017 10:36 AM EDT) Burke/Maple IgE <0.35 kU/L [facility] Comment: Reference Ranges <0.35 kU/L Class 0: ??Normal 0.35-0.69 kU/L Class 1: ??Low level of allergy, indicative of ongoing sensitization 0.70-3.49 kU/L Class 2: ??Moderate level of allergy, indicative of stronger ongoing sensitization 3.50-17.49 kU/L Class 3: ??High level of allergy, indicative of high level sensitization 17.5-49.9 kU/L Class 4: Very high level of allergy, indicative of very high level sensitization 50.0-100 kU/L Class 5: Very high level of allergy, indicative of very high level sensitization >100 kU/L Class 6: Very high level of allergy, indicative of very high level sensitization Blood specimen (specimen) 12/29/2017 10:36 AM EDT 12/29/2017 12:22 PM EDT Narrative Resulting Agency Comment Spec In Lab Yovani Swanson MD IMMUNOLOGY ORDERABLE S Performing Organization Address City/[facility]/ZIP Co de Phone Number [facility] [place] [address] * Beech IgE (12/29/2017 10:36 AM EDT) Beech IgE <0.35 kU/L [facility] Comment: Reference Ranges <0.35 kU/L Class 0: ??Normal 0.35-0.69 kU/L Class 1: ??Low level of allergy, indicative of ongoing sensitization 0.70-3.49 kU/L Class 2: ??Moderate level of allergy, indicative of stronger ongoing sensitization 3.50-17.49 kU/L Class 3: ??High level of allergy, indicative of high level sensitization 17.5-49.9 kU/L Class 4: Very high level of allergy, indicative of very high level sensitization 50.0-100 kU/L Class 5: Very high level of allergy, indicative of very high level sensitization >100 kU/L Class 6: Very high level of allergy, indicative of very high level sensitization Blood specimen (specimen) 12/29/2017 10:36 AM EDT 12/29/2017 12:22 PM EDT Narrative Resulting Agency Comment Spec In Lab Yovani Swanson MD IMMUNOLOGY ORDERABLE S [facility] [place] [address] * Aspergillus fumigatus IgE (12/29/2017 10:36 AM EDT) A Fumigatus IgE <0.35 kU/L [facility] Comment: Reference Ranges <0.35 kU/L Class 0: ??Normal 0.35-0.69 kU/L Class 1: ??Low level of allergy, indicative of ongoing sensitization 0.70-3.49 kU/L Class 2: ??Moderate level of allergy, indicative of stronger ongoing sensitization 3.50-17.49 kU/L Class 3: ??High level of allergy, indicative of high level sensitization 17.5-49.9 kU/L Class 4: Very high level of allergy, indicative of very high level sensitization 50.0-100 kU/L Class 5: Very high level of allergy, indicative of very high level sensitization >100 kU/L Class 6: Very high level of allergy, indicative of very high level sensitization Blood specimen (specimen) 12/29/2017 10:36 AM EDT 12/29/2017 12:22 PM EDT Narrative Resulting Agency Comment Spec In Lab Yovani Swanson MD IMMUNOLOGY ORDERABLE S Performing Organization Address [facility]/ZIP Co de Phone Number [facility] [place] [address] * Alternaria Tenuis, IgE (12/29/2017 10:36 AM EDT) Alt Chay IgE <0.35 kU/L [facility] Comment: Reference Ranges <0.35 kU/L Class 0: ??Normal 0.35-0.69 kU/L Class 1: ??Low level of allergy, indicative of ongoing sensitization 0.70-3.49 kU/L Class 2: ??Moderate level of allergy, indicative of stronger ongoing sensitization 3.50-17.49 kU/L Class 3: ??High level of allergy, indicative of high level sensitization 17.5-49.9 kU/L Class 4: Very high level of allergy, indicative of very high level sensitization 50.0-100 kU/L Class 5: Very high level of allergy, indicative of very high level sensitization >100 kU/L Class 6: Very high level of allergy, indicative of very high level sensitization Blood specimen (specimen) 12/29/2017 10:36 AM EDT 12/29/2017 12:22 PM EDT Narrative Resulting Agency Comment Spec In Lab Yovani Swanson MD IMMUNOLOGY ORDERABLE S Performing Organization Address [facility] Co de Phone Number [facility] [place] [address] documented in this encounter Visit Diagnoses Diagnosis KRUGER (dyspnea on exertion) Other dyspnea and respiratory abnormality Mild persistent asthma, uncomplicated Unspecified asthma KRUGER (dyspnea on exertion) Other dyspnea and respiratory abnormality Chronic cough Cough Acute URI Acute upper respiratory infections of unspecified site documented in this encounter Care Teams Clinical Support Manager Relationship Specialty Start Date End Date Henrietta Null MD [facility] [address] [address] PCP - General 12/20/10 05/08/20 documented as of this encounter
--- OUTSIDE RECORDS SUMMARY | 2024-04-23 12:16 | XMS_ITS | Encounter Summary ---
Author Organization [facility] [place] [address] Care Team Providers Care Husbandry Technician Name Role Phone Henrietta Null MD Primary Care Provider [phone] Reason for Visit * Reason Comments Procedure Encounter Details Date Type Department Care Team (Late st Contact Info) Description 07/03/2016 9:00 AM EDT Procedure visit Dermatology at [facility] [address] [place] [address] Simin Alanis MD [facility] [address] [place] [address] Atypical nevus Social History Tobacco Use Types Packs/Day Years [...] Sign Reading Time Taken Comments Blood Pressure 134/42 07/03/2016 8:43 AM EDT Pulse 56 07/03/2016 8:43 AM EDT Temperature - - Respiratory Rate - - Oxygen Saturation - - Inhaled Oxygen Concentration - - Weight - - Height - - Body Mass Index - - documented in this encounter Patient Instructions * Patient Instructions* Vanesa Anna, [facility] - 07/03/2016 9:00 AM EDT Section of Dermatology POST OPERATIVE INSTRUCTIONS Wash your hand before changing the dressing. The dressing on the site should remain in place and dry until Friday The dressing should then be removed gently After removing the dressing, daily wound care should be performed as follows: Clean the wound with warm water and pat dry Apply either Vaseline or Aquaphor Ointment Cover the wound with a new dressing such as Telfa and Tape, or a Band-Aid Do not use peroxide or antibiotic ointment/cream on the wound. For discomfort, you may take Tylenol or other non-aspirin pain medication. If bleeding should occur, pressure should be applied constantly for 15 minutes on the dressing withthe help of a towel, wash cloth, or piece of gauze. The sutures should be removed in 14 days. It is important that you avoid strenuous and/or vigorous activities, heavy lifting (More than 5-10 lbs), and bending for a period of 2 weeks If you have questions, please contact the office of Simin Alanis MD during the day at [phone] Nurse: Vanesa [phone] After 5 PM and on weekends, please call the hospital number , and ask for the Piano Mechanic Apprentice cable television access coordinator. documented in this encounter Progress Notes * Simin Alanis MD - 07/03/2016 9:00 AM EDT Procedure note: Resident surgeon: Simin Alanis MD Attending physician: Abigail Munroe MD Hammer Smith: Vanesa Anna CMA Referring MD: Annmarie Haywood MD ? Y/N? Are you taking any blood thinners?? ? no Pacemaker or defibrillator?? ? no Heart valves? ? no Joints? no Antibiotics prior to procedures?? ? no If yes: Time taken?? ? Allergy to local anesthetics? ? no ? Allergy to latex?? ? no ? 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 The junctional and superficial dermal components show atypical features associated with dermal fibrosis, suggestive of prior trauma or procedure with [...] this case and concurs with this diagnosis. I explained the diagnosis to the patient and recommend an excision of the lesion for diagnosis and/or treatment. I explained all treatment options and risks of the procedure to the patient and obtained written consent. Potential complications include, but not limited to: scar, bleeding, infection, incomplete removal, nerve damage, and dehiscence. ? The patient was brought into room. A time out was performed. The patient was prepared and draped sterilely in the usual manner and anesthesia was administered by local infiltration. A fusiform shape was drawn around the lesion, and the margins were incised to the level of the subcutaneous fat with a number 15 blade. The tissue was removed with sharp and blunt dissection and tagged at the superiortip. Hemostasis was achieved with electrocautery. The deeper layers of the defect including subcutaneous fat were approximated to reduce tension on the suture line. Layered wound closure was performed. The wound was cleaned, dried off, vaseline was applied and the wound covered with a pressure dressing. The patient was given detailed verbal and written instructions on post-operative care. ? In the event of a suspected infection (e.g. pus formation, fever, redness), the patient knows to call the clinic or the on-call social welfare research worker over the weekend. ??? Name of Procedure? ? Excision with intermediate layered closure Location? ?? Right lateral shoulder Diagnosis? ?? atypical nevus Size (maximal) (cm)? ?? 0.7 x 0.5 cm Margins (cm)? 0.2 cm ? Size + Margins (cm)? ? 1.1 x 0.9 cm ? 1% lidocaine with epinephrine? 1 cc? Suture (adipose/dermis)? 4-0 Monocryl? Suture (epidermis)? 4-0 Prolene? Final wound length? 2.2 cm? Suture removal? 14 days? * Abigail Munroe MD - 07/03/2016 9:00 AM EDT I directly supervised Dr. Alanis during this office visit. Dr. Alanis presented the history and physical exam to me. I then saw and examined this patient with Dr. Alanis. We reviewed the history and pertinent details and I confirmed the physical findings. I agree with the details of the history and physical exam as documented in Dr. Alanis's note. ABIGAIL MUNROE MD Staff Physician documented in this encounter Plan of Treatment Upcoming Encounters Date Type Department Care Team (Late st Contact Info) Description 07/07/2024 11:00 AM EDT Office Visit Cardiology at [address] [address] Lorena Lawrence [place] [address] documented as of this encounter Procedures Procedure Name Priority Date/Time Associated Diagnosis Comments SPECIMEN TO PATHOLOGY (NON-OR) Routine 07/03/2016 10:52 AM EDT Atypical nevus SURGICAL PATHOLOGY REPORT Routine 07/03/2016 10:51 AM EDT documented in this encounter Results * Specimen to Pathology (NON-OR) (07/03/2016 10:52 AM EDT) AP Specimen 07/03/2016 10:5 2 AM EDT 07/03/2016 12:44 PM EDT Narrative [facility] - 07/03/2016 12:45 PM EDT Specimen requisition ordered. ??Separate Pathology report to follow Resulting Agency Comment Spec In Lab Abigail Munroe MD PATHOLOGY/CYTOLOGY O RDERABLES [facility] [address] [place] [address] * Surgical Pathology Report (07/03/2016 10:51 AM EDT) FINAL DIAGNOSIS (AP) [id number] ?Location: [facility] The signing pathologist has (i) examined the relevant preparation(s) for the specimen(s) and (ii) rendered or confirmed the diagnosis(es). . ?Surgical Pathology DIAGNOSIS Skin, right lateral shoulder, excision: - NO RESIDUAL of the previously diagnosed compound nevus with atypical features - ??REPARATIVE CHANGES CONSISTENT WITH PREVIOUS OPERATIVE SITE Electronically signed by: ??Radha CONTRERAS, Oliver Butterfield Verified: ??07/05/2016 ?Dermatopatholog ist, Bone & Soft Tissue Pathologist CLINICAL INFORMATION Specimen Submitted: A - Right lateral shoulder, Excision (1) Clinical History: 0.7 x 0.5 cm hypopigmented atrophic papule tagged at the superior tip, [id number] Clinical Diagnosis: Atypical nevus SPECIMEN PROCESSING A - Labeled/Fixative: Right lateral shoulder, formalin. Quantity/Size: Single, 1.4 x 0.8 x 0.4 cm. Tissue Description: Ellipse of oropeza-white skin. ??There is a suture at one apex. Suture is oriented at 12 o ??'clock. ??The skin surface is present with a central so depressed previous biopsy site 0.5 cm. The margin from 12 o ?? ' clock to 9 o'clock to 6 o 'clock is marked blue; the margin from 12 o ??'clock to 3 o' clock to 6 o'clock is marked black. Sections/Processi ng: The specimen is serially sectioned from 12 o ?'clock to 6 o'clock and totally submitted, with 12 o ??'clock apex in A1 and 6 o 'clock apex in A3. ??(T3 no) ??pps 07/05/2016 3:18 PM EDT [facility] 07/03/2016 10:5 1 AM EDT Simin Alanis MD PATHOLOGY/CYTOLOGY O RDERABLES [facility] [place] [address] documented in this encounter Visit Diagnoses Diagnosis Atypical nevus Benign neoplasm of skin, site unspecified documented in this encounter Care Teams Husbandry Technician Relationship Specialty Start Date End Date Henrietta Null MD [facility] [address] [place] [address] PCP - General 12/20/10 05/08/20 documented as of this encounter
--- OUTSIDE RECORDS SUMMARY | 2024-04-23 12:16 | XMS_ITS | Encounter Summary ---
Author Organization [facility] Address [facility] [place] [address] Care Team Providers Care Learning Designer Name Role Phone Henrietta Null MD Primary Care Provider [phone] Encounter Details Date Type Department Care Team (Latest Contact Info) Description 02/03/2017 2:12 PM EDT - 02/03/2017 11:59 PM EDT Hospital En[place] [address] Henrietta Null MD [facility] [place] [address] Encounter for screening mammogram for breast cancer [...] Take 1 tablet by mouth daily. 01/10/2012 azithromycin (ZITHROMAX) 250 mg Tablet Day 1: Take 2 tablets daily, Day 2 - 5: Take one tablet daily 6 tablet 10/01/2016 03/21/2017 fluticasone (FLONASE) 50 mcg/actuation Steger, SuspensionIndications:S easonal allergic rhinitis, unspecified allergic rhinitis trigger 1 spray by Each Nare route daily. 16 g 11 07/17/2016 10/20/2017 CARBAMAZEPINE (TEGRETOL ORAL) Take 25 g by mouth. Reported on 03/21/2017 03/21/2017 albuterol (PROVENTIL HFA;VENTOLIN HFA;PROAIR) 90 mcg/actuation HFA [...] AM EDT Office Visit Cardiology at [address] [place] [address] Lorena Lawrence MD [facility] [place] [address] documented as of this encounter Procedures Procedure Name Priority Date/Time Associated Diagnosis Comments MAMMO SCREENING CAD AND RENAN BILATERAL Routine 02/03/2017 2:29 PM EDT Encounter for screening mammogram for breast cancer documented in this encounter Results * Mammo Screen CAD and Ernan Bilat (Generic) (02/03/2017 2:29 PM EDT) Anatomical Region Laterality Modality Breast Bilateral Mammography Narrative 02/04/2017 8:48 AM EDT BILATERAL MAMMOGRAPHY REASON FOR EXAM: [...] No mammographic evidence of malignancy. RECOMMENDATION: The [place] and The Society of [...] cancer documented in this encounter Care Teams Learning Designer Relationship Specialty Start Date End Date Henrietta Null MD [facility] [address] [facility] [address] PCP - General 12/20/10 05/08/20 documented as of this encounter
--- OUTSIDE RECORDS SUMMARY | 2024-04-23 12:16 | XMS_ITS | Encounter Summary ---
Author Organization [facility] Address [facility] [place] [address] Care Team Providers Care Chrome Tanning Drum Operator Name Role Phone Henrietta Null MD Primary Care Provider [phone] Encounter Details Date Type Department Care Team (Latest Contact Info) Description 04/11/2017 7:42 AM EDT - 04/11/2017 11:59 PM EDT Hospital Encounter XRay at [address] [place] [address] Henrietta Null MD [facility] [address] Osteoporosis, unspecified osteoporosis type, unspecified pathological fracture [...] mouth daily. 01/10/2012 fluticasone (FLONASE) 50 mcg/actuation [place], SuspensionIndications:Se asonal allergic rhinitis, unspecified allergic rhinitis trigger 1 spray by Each Nare route daily. 16 g 11 07/17/2016 10/20/2017 albuterol (PROVENTIL HFA;VENTOLIN HFA;PROAIR) 90 mcg/actuation HFA Aerosol InhalerIndications:Cough , persistent Inhale 2 puffs into the lungs every 4 hours as needed for Wheezing. 1 Inhaler 1 01/27/2015 11/18/2017 cyanocobalamin (VITAMIN B-12) 1,000 mcg tablet 12/20/201006/01 documented as of this encounter Plan of Treatment Upcoming Encounters Date Type Department Care Team (Late st Contact Info) Description 07/07/2024 11:00 AM EDT Office Visit Cardiology at [address] [place] [address] Lorena Lawrence MD [facility] [place] [address] documented as of this encounter Procedures Procedure Name Priority Date/Time Associated Diagnosis Comments DXA CENTRAL SPINE, HIP, AND/OR WHOLE BODY (GENERIC) Routine 04/11/2017 8:20 AM EDT Osteoporosis, unspecified osteoporosis type, unspecified pathological fracture presence documented in this encounter Results * DXA Central-Spine, Hip, And/Or Whole Body (Generic) (04/11/2017 8:20 AM EDT) Anatomical Region Laterality Modality C-spine, Hip N/A Other Impressions 04/16/2017 3:36 PM EDT The small change of BMD is insignificant and represents normal variation since it is within or less than the calculated precision error or Least Significant Change . The measurements fulfill the WHO classification for osteoporosis and there is no significant change. ? Estimating Fracture Risk: ? The relationship between bone mineral density (BMD) and risk of fracture is well established. As BMD decreases, risk increases. Quantifying risk is difficult and is usually limited to estimation of the relative risk - a term which may have limited value when trying to discuss an individual's risk. Estimating the absolute risk for a patient requires an understanding of the incidence rate in a given population and consideration of multiple, partially independent, risk factors in addition to BMD. ? The World Health Organization (WHO) has developed a fracture risk prediction tool that calculates a ten-year risk of major osteoporotic fracture based on femoral neck bone density measurements and nine clinical risk factors for individuals who have not been treated for osteoporosis. This is available through an interactive web-based interface (http://www.shef.ac.uk/FRAX/) and can be used to estimate a given patient's absolute risk of major osteoporotic fracture or hip fracture over the next 10 years. These estimates may prove useful when discussing risk with a patient. It is important, however, to understand the tool's limitations and how a given individual's risk might differ from the tool's estimate. The tool does not take into account the dose-response associated with most risk factors. For example, the significant increase in risk associated with multiple prior fractures compared to a single prior fracture is not taken into account. Similarly, the location of a previous fracture, the amount of glucocorticoids and number of cigarettes smoked are not considered. These limitations are discussed in a Frequently Asked Questions section of the FRAX website which you are encouraged to review. ? DEXA data sheets with BMD measurements and plots are available in [employer] under the imaging tab. Paper copies will be sent to providers without [employer] access. If you have received this report without the data sheet and do not have access to [employer], please contact Radiology Records Custodian at [phone] Friday thru Friday 8am-4pm. Narrative 04/16/2017 3:36 PM EDT EXAMINATION: DXA CENTRAL-SPINE, HIP, AND/OR WHOLE BODY (GENERIC) CLINICAL HISTORY: ??72-year-old female ?? h/o osteoporosis, on drug holiday TECHNIQUE: Scans were acquired at the lumbar spine, ?and left hip. FINDINGS: Femoral neck BMD: 0.578 ? g/cm2 Lowest T-score at the diagnostic region of interest: T-score: -3.2, TREASURE: Lumbar spine, WHO diagnosis: Osteoporosis. ......... Comparison......... Previous scan: 2014 Total hip: Compared to the previous, 2 % change. Total spine: Compared to the previous scan, -3 % change. Procedure Note Olivia Alexander MD - 04/16/2017 EXAMINATION: DXA CENTRAL-SPINE, HIP, AND/OR WHOLE BODY (GENERIC) CLINICAL HISTORY: 72-year-old female h/o osteoporosis, on drugholiday TECHNIQUE: Scans were acquired at the lumbar spine, and left hip. FINDINGS: Femoral neck BMD: 0.578 g/cm2 Lowest T-score at the diagnostic region of interest: T-score: -3.2, TREASURE: Lumbar spine, WHO diagnosis: Osteoporosis. ......... Comparison......... Previous scan: 2014 Total hip: Compared to the previous, 2 % change. Total spine: Compared to the previous scan, -3 % change. IMPRESSION The small change of BMD is insignificant and represents normal variationsince it is within or less than the calculated precision error or LeastSignificant Change . The measurements fulfill the WHO classification for osteoporosis and thereis no significant change. Estimating Fracture Risk: ? The relationship between bone mineral density (BMD) and risk of fractureis well established. As BMD decreases, risk increases. Quantifying risk isdifficult and is usually limited to estimation of the relative risk - a term which mayhave limited value when trying to discuss an individual's risk. Estimatingthe absolute risk for a patient requires an understanding of the incidencerate in a given population and consideration of multiple, partially independent,risk factors in addition to BMD. ? The World Health Organization (WHO) has developed a fracture riskprediction tool that calculates a ten-year risk of major osteoporotic fracture basedon femoral neck bone density measurements and nine clinical risk factorsfor individuals who have not been treated for osteoporosis. This isavailable through an interactive web-based interface (http://www.shef.ac.uk/FRAX/)and can be used to estimate a given patient's absolute risk of majorosteoporotic fracture or hip fracture over the next 10 years. These estimates mayprove useful when discussing risk with a patient. It is important, however, to understand the tool's limitations and how a given individual's risk mightdiffer from the tool's estimate. The tool does not take into account thedose-response associated with most risk factors. For example, the significant increasein risk associated with multiple prior fractures compared to a single priorfracture is not taken into account. Similarly, the location of a previous fracture,the amount of glucocorticoids and number of cigarettes smoked are notconsidered. These limitations are discussed in a Frequently Asked Questions sectionof the FRAX website which you are encouraged to review. ? DEXA data sheets with BMD measurements and plots are available in [employer] the imaging tab. Paper copies will be sent to providers without [employer] access.If you have received this report without the data sheet and do not haveaccess to [employer], please contact Radiology Records Custodian at [phone] Friday thrrid 8am-4pm. Henrietta Null MD IM DEXA ORDERABLES documented in this encounter Visit Diagnoses Diagnosis Osteoporosis, unspecified osteoporosis type, unspecified pathological fracture presence documented in this encounter Care Teams Chrome Tanning Drum Operator Relationship Specialty Start Date End Date Henrietta Null MD [facility] [place] [address] PCP - General 12/20/10 05/08/20 documented as of this encounter
--- OUTSIDE RECORDS SUMMARY | 2024-04-23 12:16 | XMS_ITS | Encounter Summary ---
Author Organization [facility] [place] [address] Care Team Providers Care Hotel Superintendent Name Role Phone Henrietta Null MD Primary Care Provider [phone] Reason for Visit * Reason Onset Date Comments Referral 12/11/2017 Pulmonary Encounter Details Date Type Department Care Team (Late st Contact Info) Description 12/11/2017 Telephone Internal Medicine at [address] [address] Mirta Jensen Referral (Pulmonary) Social History Tobacco Use Types Packs/Day Years [...] Telephone Encounter - Bruna Conner RN - 12/11/2017 4:19 PM EDT TC to patient. Current sx include shortness of breath, persistent raspy cough, wheezing, fatigue, pain below ribs from coughing, ever since dx with pneumonia. Has been given 3 antibiotics, cough med,and nasal spray. No inhaler given. Sputum yellowish. No known fever or chills recently. Benzonatatedidn't work. Speaking in full sentences, but voice raspy on inspiration. States she feels wheezy. Took zyrtek last week, no benefit. Taking nyquil and dayquil, no benefit but is sleeping. Agreed to another appt at [facility] tomorrow; scheduled with Dr Cooper. She would be willing to get CXR done prior at . Order pended. * Telephone Encounter - Mirta Jensen - 12/11/2017 4:05 PM EDT Patient is requesting a referral for what kind of services/treatment: Pulmonary *Urgent Reason for this referral request: ongoing issues with cough, SOB and pneumonia symptoms Specific office or provider: [facility] Address/Phone/Fax: Has the patient been seen for this symptom: yes Who: Vale Burton When: 10/20/17 Caller and Relationship (if other than patient): self Best time to call back: any Ok to leave a message: y Ok to send - message: n *Pt would also like to know if a Chest CT or X-ray is needed documented in this encounter Plan of Treatment Upcoming Encounters Date Type Department Care Team (Late st Contact Info) Description 07/07/2024 11:00 AM EDT Office Visit Cardiology at [address] [place] [address] Lorena Lawrence MD [facility] [place] [address] documented as of this encounter Results * (ABNORMAL) XR Chest [...] the lateral view, but new from the 2011 chest radiograph. No other interval pulmonary findings identified. The cardiomediastinal silhouette, [place], pulmonary vessels, and pleura are within normal limits. No significant interval osseous findings are seen. Resulting Agency Comment Unexpected Finding Henrietta Null MD IMG DX ORDERABLES documented in this encounter Visit Diagnoses Diagnosis Cough, persistent Cough Cough, persistent Cough documented in this encounter Care Teams Hotel Superintendent Relationship Specialty Start Date End Date Henrietta Null MD [facility] [address] [place] [address] PCP - General 12/20/10 05/08/20 documented as of this encounter
--- OUTSIDE RECORDS SUMMARY | 2024-04-23 12:16 | XMS_ITS | Encounter Summary ---
Author Organization [facility] [address] Care Team Providers Care Inspector Final Assembly Conveyor Line Name Role Phone Henrietta Null MD Primary Care Provider [phone] Reason for Visit * Reason Comments Annual Wellness Visit Encounter Details Date Type Department Care Team (Late st Contact Info) Description 03/21/2017 10:00 AM EDT Office Visit Internal Medicine at [address] [address] Henrietta Null MD [facility] [address] Preventative health care; Osteoporosis, unspecified osteoporosis type, unspecified pathological fracture presence; Hyperlipidemia, unspecified hyperlipidemia type Social History Tobacco [...] Reading Time Taken Comments Blood Pressure 132/59 03/21/2017 9:55 AM EDT Pulse 67 03/21/2017 9:55 AM EDT Temperature 36.7 ??C (98 ??F) 03/21/2017 9:55 AM EDT Respiratory Rate - - Oxygen Saturation 98% 03/21/2017 9:55 AM EDT Inhaled Oxygen Concentration - - Weight 55.2 kg (121 lb 9.6 oz) 03/21/2017 9:55 A M EDT Height 151.5 cm (4' 11.65) 03/21/2017 9:55 AM E DT Body Mass Index 24.03 03/21/2017 9:55 AM EDT documented in this encounter Progress Notes * Henrietta Null MD - 03/21/2017 10:00 AM EDT AWV: [id number] Chief Complaint Patient presents with ??? Annual Wellness Visit HEIKE RAMIRES seen today for subsequent annual wellness visit. Medical and family history reviewed. Specific active medical issues managed today are in second section of note. Annual Wellness Visit Responses: myD-H Annual Wellness Visit Responses 03/21/2017 Health in general Very Good Quality of [...] Score 61.9 PROMIS-10 Mental Health Score 56 Activity - low level (Bathing, Dressing, Eating, Mobility, Using toilet, Grooming) No, I do not have difficulty with these activities Fallen in last year No Difficulties with balance or walking No Little interest or pleasure Not at all Down, depressed, hopeless Not at all Providers: Dr. Joshi in Dermatology. Suppliers: Preventative health care DT: Tdap 12/13/08 (from scanned pcp records in [facility]) Pneumonia: 2009, 2014 Influenza:2012 Shingles: 2011 Cigarettes: none Alcohol: none Caffeine:little Exercise: active in job, treadmill 1/2 Seat Belts: consistent Helmets:consistent Cholesterol (Total/HDL/LDL): Lab Results Component Value Date CHLPL 264 (H) 02/16/2016 HDL 70 02/16/2016 TRIG 61 01/27/2015 LDLCHOL 155 (H) 01/27/2015 LDLDIRECT 183 (H) 02/16/2016 Diabetes Screening: Lab Results Component Value Date GLUCFASTING 103 (H) 01/27/2015 Optho Screening: recent Calcium/Vitamin D: adequate Colon Cancer Screening: Colonoscopy 03/12 + [facility] Osteoporosis Screening: Dexa 2015 lowest - [...] accidents. Assessment of cognitive function - mini-cog 01/31! Advanced Care planning: advanced directive scanned into eDH Depression- PHQ9 Questionnaires Data (Clinic and Pt Entered): Today's value PHQ-9 QUESTIONNAIRE (AMB) 03/21/2017 PHQ - 9 Score (Clinic) - Little interest or pleasure (Clinic) - Little interest or pleasure (Patient) Not at all Down, depressed, hopeless (Clinic) - Down, depressed, hopeless (Patient) Not at all BP 132/59 (BP Location (NBP): Left arm, Patient Position: Sitting, BP Cuff Sizes: Adult (25-34 cm)) Pulse 67 Temp 36.7 ??C (98 ??F) (Oral) Ht 151.5 cm (4' 11.65) Wt 55.2 kg (121 lb 9.6 oz) SpO2 98% BMI 24.03 kg/m2 Body mass index is 24.03 kg/(m^2). Health risk assessment: (at risk for:) Average risk for age related illnesses. Mental health risk factors: none Written screening schedule: Health Maintenance Topic Date Due ??? *PCV-13 adult 65+ (#1) completed ??? Hepatitis C screening (B. 2076-7402) Low risk ??? Influenza (Flu) vaccine (#1 of 1) Completed ??? Breast Cancer Screen,every 2 yrs (40-74) Completed ??? Tetanus vaccine 12/13/2018 ??? Colonoscopy every 5 yrs 03/21/2019 ??? *PPSV23 adult 65+ Completed ??? Bone Density,female 65+ Schedule - as below ??? Tdap adult Completed ??? Zoster vaccine Completed Lab Results Component Value Date CHLPL 264 (H) 02/16/2016 HDL 70 02/16/2016 TRIG 61 01/27/2015 LDLCHOL 155 (H) 01/27/2015 LDLDIRECT 183 (H) 02/16/2016 Personal Health advice: [...] No fracture. Last dexa 2014 with lowest - 3.0, + prior tegretol use - has lifeline screening which states bone density normal ??? Trigeminal neuralgia - taking inositol with good relief, tapered off her tegretol completely! ROS: Constitutional - no fevers, chills, No [...] Dispense Refill ??? fluticasone (FLONASE) 50 mcg/actuation [place], Suspension 1 spray by Each Nare route [...] file prior to visit. Physical Exam: Vitals: 03/21/17 0955 BP: 132/59 BP Location (NBP): Left arm Patient Position: Sitting BP Cuff Sizes: Adult (25-34 cm) Pulse: 67 Temp: 36.7 ??C (98 ??F) TempSrc: Oral SpO2: 98% Weight: 55.2 kg (121 lb 9.6 oz) Height: 151.5 cm (4' 11.65) General - No acute distress. Appears well. ENT - Mouth moist without lesions. TM clear. Hearing decreased R [...] ca/vit d. Focus on weight bearing exercise. Check dexa Trigeminal neuralgia - doing terrific off medications. Hyperlipidemia, unspecified hyperlipidemia type - check lipid levels. Pt at otherwise low risk of cardiac event. Orders: - HDL/Cholesterol Profile; Future - LDL Cholesterol, Direct; Future - HDL/Cholesterol Profile - LDL Cholesterol, Direct documented in this encounter Plan of Treatment Upcoming Encounters Date Type Department Care Team (Late st Contact Info) Description 07/07/2024 11:00 AM EDT Office Visit Cardiology at [address] [place] [address] Lorena Lawrence MD [facility] [place] [address] documented as of this encounter Procedures Procedure Name Priority Date/Time Associated Diagnosis Comments BMP W/FASTING GLUCOSE Routine 03/21/2017 10:59 AM EDT Osteoporosis, unspecified osteoporosis type, unspecified pathological fracture presence LIPID PANEL (REFLEX DIRECT LDL) Routine 03/21/2017 10:59 AM EDT Hyperlipidemia, unspecified hyperlipidemia type documented in this encounter Results * DXA [...] BMD measurements and plots are available in [employer] under the imaging tab. Paper copies will be sent to providers without [facility] access. If you have received this report without the data sheet and do not have access to [facility], please contact Radiology Membership Solicitor at [phone] Friday thru Friday 8am-4pm. Narrative 04/16/2017 3:36 [...] BMD measurements and plots are available in [facility]. Paper copies will be sent to providers without [facility] access.If you have received this report without the data sheet and do not haveaccess to [facility], please contact Radiology Membership Solicitor at [phone] Friday thrrid 8am-4pm. Henrietta Null MD IMG DEXA ORDERABLES * BMP w/fasting Glucose (03/21/2017 10:59 AM EDT) [facility] Glucose Fasting 94 65 - 99 mg/dL [facility] Comment: ?Fasting* Glucose Interpretive Criteria [...] of Diabetes Mellitus, Position Statement from the [place] [employer]. ??Diabetes Care, Volume 33, Supplement 1, Sep 2009 BUN 15 8 - 18 mg/dL [facility] Creatinine 0.74 0.70 - 1.20 mg/dL [facility] Comment: Please note that the pediatric reference intervals supplied above were not validated at [facility]. Results from pediatric patients should be interpreted in conjunction to the patient's age, height and muscle mass. Sodium 141 135 - 145 mmol/L [facility] Potassium 4.1 3.5 - 5.0 mmol/L [facility] Comment: Please note: ??Patients with WBC >100,000 may have falsely elevated Potassium levels. ??For accurate Potassium quantification in these patients send serum separator tube (gold top) for subsequent determinations. ??Contact the Clinical Chemistry Laboratory if there are any questions. Chloride 102 98 - 107 mmol/L [facility] CO2 26 22 - 31 mmol/L [facility] Anion Gap 13 5 - 15 mmol/L [facility] Calcium 9.7 8.5 - 10.5 mg/dL [facility] Estimated GFR >60 >=60 [facility] Comment: This estimated GFR (eGFR) [...] the following links into your internet browser. [email or web address] Blood specimen (specimen) 03/21/2017 10:59 AM EDT 03/21/2017 12:34 PM EDT Narrative Resulting Agency Comment Spec In Lab Henrietta Null MD CHEMISTRY ORDERABLES [facility] [place] [address] * (ABNORMAL) Lipid Panel (03/21/2017 10:59 AM EDT) Chol, Total 241(H) <=239 mg/dL [facility] Triglycerides 111 <=199 mg/dL [facility] HDL 63 >=40 mg/dL [facility] LDL Cholesterol 156 <=190 mg/dL [facility] Chol/HDL Ratio 3.8 ratio [facility] Lipid Interpretation See Note [facility] Comment: Lipid management should be guided by a patient? s ASCVD risk, goals and preferences. ACC/AHA Guidelines recommend high intensity statin if clinical ASCVD or LDL greater than or equal to 190 mg/dL. [email or web address] Adults aged 40-75 with LDL 70-189 mg/dL should have their 10 year ASCVD risk estimated with the ACC/AHA ASCVD risk building construction estimator http://tools.acc.org/VWTVC-Uasi-Khsbefuup/ Statin should be discussed if risk greater [...] of ASCVD risk reduction. Blood specimen (specimen) 03/21/2017 10:59 AM EDT 03/21/2017 12:34 PM EDT Narrative Resulting Agency Comment Spec In Lab Henrietta Null MD CHEMISTRY ORDERABLES [facility] [place] [address] documented in this encounter Visit Diagnoses Diagnosis Preventative health care Routine general medical examination at a health care facility Osteoporosis, unspecified osteoporosis type, unspecified pathological fracture presence Hyperlipidemia, unspecified hyperlipidemia type Osteoporosis, unspecified osteoporosis type, unspecified pathological fracture presence documented in this encounter Care Teams Inspector Final Assembly Conveyor Line Relationship Specialty Start Date End Date Henrietta Null MD [facility] [address] [place] [address] PCP - General 12/20/10 05/08/20 documented as of this encounter
--- OUTSIDE RECORDS SUMMARY | 2024-04-23 12:16 | XMS_ITS | Encounter Summary ---
Author Organization [facility] [place] [address] Care Team Providers Care Axle Polisher Name Role Phone Henrietta Null MD Primary Care Provider [phone] Reason for Visit * Reason Comments Suture / Staple Removal Encounter Details Date Type Department Care Team (Late st Contact Info) Description 07/17/2016 8:00 AM EDT Office Visit Internal Medicine at [facility] [address] [place] [address] Jodi Szymanski PA [address] [facility] [address] Visit for suture removal; Seasonal allergic rhinitis, unspecified allergic rhinitis trigger Social History Tobacco Use Types Packs/Day [...] Sign Reading Time Taken Comments Blood Pressure 130/50 07/17/2016 7:59 AM EDT Pulse 63 07/17/2016 7:59 AM EDT Temperature 36.8 ??C (98.2 ??F) 07/17/2016 7:59 AM ED T Respiratory Rate 14 07/17/2016 7:59 AM EDT Oxygen Saturation 100% 07/17/2016 7:59 AM EDT Inhaled Oxygen Concentration - - Weight 55.3 kg (122 lb) 07/17/2016 7:59 AM EDT Height - - Body Mass Index 24.79 02/16/2016 1:44 PM EDT documented in this encounter Progress Notes * Jodi Szymanski PA - 07/17/2016 8:00 AM EDT PCP: HENRIETTA NULL MD Chief Complaint Patient presents with ??? Suture / Staple Removal SUBJECTIVE: Heike Ramires is a 71 y.o. female who presents for suture removal s/p excisional biopsy performed at dermatology to remove atypical nevus on 07/03/2016. She reports no redness, fever or discharge from the incision. Review of Systems Skin: Healing incision on right upper arm. No redness, fever or discharge from the incision. Sutures intact. Allergies Allergen Reactions ??? Methadone Hcl headaches [...] specified aftercare following surgery Z48.89 OBJECTIVE: Vitals: 07/17/16 0759 BP: 130/50 BP Location (NBP): Left arm Patient Position: Sitting BP Cuff Sizes: Adult (25-34 cm) Pulse: 63 Resp: 14 Temp: 36.8 ??C (98.2 ??F) TempSrc: Oral SpO2: 100% Weight: 55.3 kg (122 lb) PHYSICAL EXAM: Physical Exam Skin: Well healing incision 2.2 cm long on right upper arm, lateral aspect. There is 4.0 proline running suture visible on inspection. ASSESSMENT & PLAN: Heike was seen today for suture / staple removal. Diagnoses and all orders for this visit: Visit for suture removal Patient presents for suture removal. The wound is well healed without signs of infection. The sutures are removed. Wound care and activity instructions given. Return prn. Other orders - fluticasone (FLONASE) 50 mcg/actuation [place], Suspension; 1 spray by Each Nare route daily. No future appointments. JAMIA Fontaine documented in this encounter Plan of Treatment Upcoming Encounters Date Type Department Care Team (Late st Contact Info) Description 07/07/2024 11:00 AM EDT Office Visit Cardiology at [address] [phone] Lorena Lawrence MD [facility] [place] [address] documented as of this encounter Visit Diagnoses Diagnosis Visit for suture removal Encounter for removal of sutures Seasonal allergic rhinitis, unspecified allergic rhinitis trigger documented in this encounter Care Teams Axle Polisher Relationship Specialty Start Date End Date Henrietta Null MD [facility] [address] [place] [address] PCP - General 12/20/10 05/08/20 documented as of this encounter
--- OUTSIDE RECORDS SUMMARY | 2024-04-23 12:16 | XMS_ITS | Encounter Summary ---
Author Organization [facility] [place] [address] Care Team Providers Care Copyright Expert Name Role Phone Henrietta Null MD Primary Care Provider [phone] Reason for Visit * Reason Onset Date Comments Prior Authorization 05/29/2015 Tegretol Carmen pension Encounter Details Date Type Department Care Team (Late st Contact Info) Description 05/29/2015 Telephone Family Medicine at [facility] [address] [place] [phone] Rory Lombardo MA Prior Authorization (Tegretol Suspension) Social History Tobacco Use Types Packs/Day Years [...] encounter Miscellaneous Notes * Telephone Encounter - Rory Lombardo MA - 05/29/2015 11:46 AM EDT Medication Prior Authorization for Primary [place] [address] Additional Information from Insurance carrier: Prior Authorization is not required at this time. * Telephone Encounter - Rory Lombardo MA - 05/29/2015 10:55 AM EDT Medication Prior Authorization for Primary [place] [address] Patient: Heike Ramires Patient : 1945 Subscriber Insurance: [employer] Phone: Fax: Physician: HENRIETTA NULL MD (General) Return Medication Requested: Tegretol Suspension Strength: 100 mg/5 mL Frequency: 2.5 mL by mouth twice daily Diagnosis for this medication: Trigeminal Neuralgia ICD-9 code: 350.1 Prior medications trialed in this patient: Medication: Tegretol 200 mg tablet Approx Dates: 06/2009 - 04/2015 Outcome/Adverse Reactions: Failed to control symptoms documented in this encounter Plan of Treatment Upcoming Encounters Date Type Department Care Team (Late st Contact Info) Description 07/07/2024 11:00 AM EDT Office Visit Cardiology at [address] [phone] Lorena Lawrence MD [facility] [place] [address] documented as of this encounter Visit Diagnoses Not on filedocumented in this encounter Care Teams Copyright Expert Relationship Specialty Start Date End Date Henrietta Null MD [facility] [address] [place] [address] PCP - General 12/20/10 05/08/20 documented as of this encounter
--- OUTSIDE RECORDS SUMMARY | 2024-04-23 12:17 | XMS_ITS | Encounter Summary ---
Author Organization [facility] [place] [address] Care Team Providers Care Weld Engineer Name Role Phone Henrietta Null MD Primary Care Provider Encounter Details Date Type Department Care Team (Latest Contact Info) Description 12/30/2012 10:39 AM EDT - 12/30/2012 11:59 PM EDT Hospital [place] [phone] CLINIC, Henrietta Cordon MD [facility] [address] [address] Discharge Disposition: Home Social History Tobacco Use [...] Take 1 tablet by mouth daily. 01/10/2012 benzonatate (TESSALON) 100 mg capsule Take 1 capsule by mouth 3 times daily as needed for Cough. 30 tablet 0 08/21/2012 01/21/2013 ibandronate (BONIVA) 150 mg tabletIndications:Osteo porosis Take 1 tablet by mouth every 30 days. 3 tablet 3 12/10/2011 01/11/2013 senna-docusate (PERICOLACE) 8.6-50 mg per tablet Take 1 tablet by mouth 2 times daily as needed. 60 tablet 2 11/28/2011 01/27/2015 TEGRETOL 200 mg tabletIndications:Trige shreyas neuralgia Take 1 tablet by mouth 4 times daily as needed. 60 tablet 5 06/18/2011 01/21/2014 cyanocobalamin (VITAMIN B-12) 1,000 mcg tablet 12/20/201006/01 documented as of this encounter Plan of Treatment Upcoming Encounters Date Type Department Care Team (Late st Contact Info) Description 07/07/2024 11:00 AM EDT Office Visit Cardiology at [address] [place] [address] Lorena Lawrence MD [facility] [place] [address] documented as of this encounter Procedures Procedure Name Priority Date/Time Associated Diagnosis Comments MAMMO SCREENING CAD BILATERAL Routine 12/30/2012 10:59 AM EDT documented in this encounter Results * Mammo digital bilateral Screening with CAD (12/30/2012 10:59 AM EDT) Anatomical Region Laterality Modality Breast Bilateral Mammography 12/30/2012 10:5 9 AM EDT Narrative 12/31/2012 10:34 AM EDT Reason for Exam: Screening ?? Technique: Craniocaudal (CC) and Medio-lateral Oblique (MLO) views of both breasts obtained with direct digital capture. The exam was evaluated by CAD version 8.3.17. ?? Findings: ?? This is a negative mammogram (ACR Category 1). ??There is a stable fibroglandular pattern without significant change from prior studies. There is no mammographic evidence of cancer. ??The breasts are of scattered density. ?? CONCLUSION: This is a NEGATIVE mammogram (ACR Category 1). ?? Routine screening mammography is recommended with the frequency dependent upon the patient's age and breast cancer risk factors. A letter has been sent to this patient by the breast imaging center. Procedure Note Trent Soria MD - 12/31/2012 Reason for Exam: Screening Technique: Craniocaudal (CC) and Medio-lateral Oblique (MLO) views of both breasts obtained with direct digital capture. The exam was evaluated by CAD version 8.3.17. Findings: This is a negative mammogram (ACR Category 1). There is a stable fibroglandular pattern without significant change from prior studies. There is no mammographic evidence of cancer. The breasts are of scattered density. CONCLUSION: This is a NEGATIVE mammogram (ACR Category 1). Routine screening mammography is recommended with the frequency dependentupon the patient's age and breast cancer risk factors. A letter has been sent to this patient by the breast imaging center. Henrietta Null MD IMG MAMMO ORDERABLES documented in this encounter Visit Diagnoses Not on filedocumented in this encounter Care Teams Weld Engineer Relationship Specialty Start Date End Date Henrietta Null MD [facility] [address] [place] [address] PCP - General 12/20/10 05/08/20 documented as of this encounter
--- OUTSIDE RECORDS SUMMARY | 2024-04-23 12:17 | XMS_ITS | Encounter Summary ---
Author Organization [facility] [place] [address] Care Team Providers Care Adult Ministries Director Name Role Phone Henrietta Null MD Primary Care Provider [phone] Reason for Visit * Reason Onset Date Comments Post-op Problem 05/15/2012 question hand in fection Encounter Details Date Type Department Care Team (Late st Contact Info) Description 05/15/2012 Telephone [place] [phone] Tan Sácnhez MD [facility] [place] [address] Post-op Problem (question hand infection) Social History Tobacco Use Types Packs/Day Years [...] encounter Miscellaneous Notes * Telephone Encounter - Barbara Ye RN - 05/15/2012 12:45 PM EDT Client left a message with question of a hand infection. She was telephoned and advised to come in to clinic today for an assessment of her hand. documented in this encounter Plan of Treatment Upcoming Encounters Date Type Department Care Team (Late st Contact Info) Description 07/07/2024 11:00 AM EDT Office Visit Cardiology at [address] [place] [phone] Lorena Lawrence MD [facility] [place] [address] documented as of this encounter Visit Diagnoses Not on filedocumented in this encounter Care Teams Adult Ministries Director Relationship Specialty Start Date End Date Henrietta Null MD [facility] [address] [place] [address] PCP - General 12/20/10 05/08/20 documented as of this encounter
--- OUTSIDE RECORDS SUMMARY | 2024-04-23 12:17 | XMS_ITS | Encounter Summary ---
Author Organization [facility] [place] [address] Care Team Providers Care Clam Shucking Machine Tender Name Role Phone Henrietta Null MD Primary Care Provider [phone] Reason for Visit * Reason Comments Annual Wellness Visit Encounter Details Date Type Department Care Team (Late st Contact Info) Description 01/27/2015 9:40 AM EDT Office Visit Internal Medicine at [address] [address] Henrietta Null MD [facility] INTERNAL [place] [address] Preventative health care; Need for prophylactic vaccination against Streptococcus pneumoniae (pneumococcus); Trigeminal neuralgia; Hyperlipidemia; Osteoporosis; Screening for breast cancer; Cough, persistent Discharge Disposition: Home Social History [...] Sign Reading Time Taken Comments Blood Pressure 139/54 01/27/2015 9:33 AM EDT Pulse 62 01/27/2015 9:33 AM EDT Temperature 36.7 ??C (98.1 ??F) 01/27/2015 9:33 AM ED T Respiratory Rate - - Oxygen Saturation 97% 01/27/2015 9:33 AM EDT Inhaled Oxygen Concentration - - Weight 54.6 kg (120 lb 6.4 oz) 01/27/2015 9:33 A M EDT Height 148.6 cm (4' 10.5) 01/27/2015 9:33 AM ED T Body Mass Index 24.74 01/27/2015 9:33 AM EDT documented in this encounter Progress Notes * Henrietta Null MD - 01/27/2015 9:49 AM EDT AWV: [id number] Chief Complaint Patient [...] adequate Colon Cancer Screening: Colonoscopy 03/12 + [facility] Osteoporosis Screening: Dexa 2013, lowest - 3.1 [...] houses. vision - new prescription hearing - stable Urinary incontinence: none Fecal incontinence: None Sexual activity: not sexually active IADL: can use telephone, finances, medications, laundry, [...] Pt Entered): Today's value PHQ-9 QUESTIONNAIRE (AMB) 01/27/2015 PHQ - 9 Score (Clinic) 0 (No Depression) Little interest or pleasure (Clinic) Not at all Down, depressed, hopeless (Clinic) Not at all BP 139/54 Pulse 62 Temp(Src) 36.7 ??C (98.1 ??F) Ht 148.6 cm (4' 10.5) Wt 54.613 kg (120 lb 6.4 oz) BMI 24.73 kg/m2 SpO2 97% Body mass index is 24.73 kg/(m^2). Health risk assessment: (at risk for:) Mental health risk factors: none Written screening schedule: Health Maintenance Topic Date Due ??? *PCV-13 adult 65+ (#1) 06/29/2011 - TODAY ??? Hepatitis C screening (B. [id number]) 01/21/2017 (Originally 1985) ??? Influenza (Flu) vaccine (#1 of 1) 05/30/2015 ??? Breast Cancer Screen,every 2 yrs (40-74) 01/15/2016 - set up mammogram ??? Tetanus vaccine 12/13/2018 ??? Colonoscopy every 5 yrs 03/21/2019 ??? *PPSV23 adult 65+ Completed ??? Bone Density,female 65+ Completed ??? Tdap adult Completed ??? Zoster vaccine Completed Lab Results Component Value Date CHLPL 260* 01/28/2014 HDL 64 01/28/2014 TRIG 114 01/28/2014 LDLCHOL 173* 01/28/2014 No results found for this basename: ha1c Personal Health advice: [ ] weight loss: [ ] physical activity: active with job. [ ] smoking cessation: [ ] fall prevention: [ ] nutrition: [ ] community based lifestyle interventions: [ ] other ACTIVE MEDICAL ISSUES Seen in clinic in mid - December, treated with augmentin for presumed sinus infection. Completed course, now using mussinex bid. Still with morning cough bringing up yellowish/green phlegm. Patient Active Problem List Diagnosis ??? Nevus, atypical - foot - sees derm on yearly basis. ??? Ovarian fibroma - s/p resection. No residual discomfort ??? Osteoporosis - on Boniva. On ca/vit d. No fracture. Last dexa 2012 with lowest -3.1 ??? Trigeminal neuralgia - taking inositol with good relief, has been tapering on her tegretol and is now taking 100 bid. ROS: Constitutional - no fevers, chills, No sig weight loss or gain, fatigue HEENT - No difficulty swallowing. No nasal congestion or postnasal drip Respiratory - No new SOB, KRUGER, [...] to Visit Medication Sig Dispense Refill ??? BONIVA 150 mg Tablet Take 1 tablet by mouth every 30 days. Per patient request - Brand name only 4 tablet 3 ??? CALCIUM LACTATE ORAL Take by mouth. ??? INOSITOL ORAL Take by mouth. ??? cholecalciferol, Vitamin D3, (VITAMIN D) 1,000 unit Tab tablet Take 1 tablet by mouth daily. ??? [DISCONTINUED] senna-docusate (PERICOLACE) 8.6-50 mg per tablet Take 1 tablet by mouth 2 times daily as needed. 60 tablet 2 ??? cyanocobalamin (VITAMIN B-12) 1,000 mcg tablet No current facility-administered medications on file prior to visit. Physical Exam: Filed Vitals: 01/27/15 0933 BP: 139/54 Pulse: 62 Temp: 36.7 ??C (98.1 ??F) Height: 148.6 cm (4' 10.5) Weight: 54.613 kg (120 lb 6.4 oz) SpO2: 97% General - No acute distress. Appears well. ENT - Mouth moist without lesions. + cobblestoning. + pale nasal mucosa. Eyes- EOMI. Not jaundiced. Noninjected Neck - No lymphadenopathy. No thyromegaly Lungs - Clear to auscultation. + occ wheeze, good air movement, no crackles. Breasts - No masses, no rashes, no LAD Heart - RRR, S1,S2, no audible murmur, gallop or rub. Abdomen/GI - Soft, nontender, normal active bowel sounds, neg hsm or masses. Extremities - No clubbing, cyanosis or edema. Pulses intact. Assessment and Plan: Addl Diagnoses and associated orders for this visit: Trigeminal neuralgia - can continue to taper down on tegretol with plan to d/c. Continue inositol. - TEGRETOL 200 mg Tablet; Take 0.5 tablets by mouth 2 times daily. Hyperlipidemia - assess for adequacy of treatment. - BMP w/fasting Glucose; Future - Lipid panel (fasting); Future Osteoporosis - assess for bone density. Cont regular exercise/ca/vit D. - Dexa central-spine, hip, and/or whole body; Future Cough, persistent - cont mussinex. Add meds below. - fluticasone (FLONASE) 50 mcg/actuation [place], Suspension; 2 sprays by Each Nare route daily. - albuterol (PROVENTIL HFA;VENTOLIN HFA;PROAIR) 90 mcg/actuation HFA Aerosol Inhaler; Inhale 2 puffs into the lungs every 4 hours as needed for Wheezing. documented in this encounter Plan of Treatment Upcoming Encounters Date Type Department Care Team (Late st Contact Info) Description 07/07/2024 11:00 AM EDT Office Visit Cardiology at [address] [phone] Lorena Lawrence MD [facility] [place] [address] documented as of this encounter Procedures Procedure Name Priority Date/Time Associated Diagnosis Comments BMP W/FASTING GLUCOSE Routine 01/27/2015 10:31 AM EDT Hyperlipidemia LIPID PANEL (REFLEX DIRECT LDL) Routine 01/27/2015 10:31 AM EDT Hyperlipidemia documented in this encounter Results * Dexa central-spine, hip, and/or whole body (02/06/2015 8:16 AM EDT) Anatomical Region Laterality Modality C-spine, Hip N/A Radiographic Juliet ging 02/06/2015 8:16 AM EDT Impressions 02/06/2015 10:42 AM EDT IMPRESSION: The measurements fulfill the WHO classification for osteoporosis and they are decreasing since 2012. The rate of loss is 4% decrease over 2 years. Consider continue follow-up and add bone turnover markers to evaluate physiology. Estimating Fracture Risk: ? The relationship between [...] BMD measurements and plots are available in [employer] under the imaging tab. Paper copies will be sent to providers without E- access. If you have received this report without the data sheet and do not have access to [employer], please contact Radiology Production Department Supervisor at [phone] Friday thru Friday 8am-4pm. Narrative 02/06/2015 10:42 AM EDT EXAMINATION: DXA CENTRAL-SPINE,HIP, AND/OR WHOLE BODY CLINICAL HISTORY: on [facility], with osteoporosis;last 02.08 TECHNIQUE: Scans were acquired at the lumbar spine, ?and left hip. FINDINGS: Lowest T-score at the diagnostic region of interest: T-score: -3, TREASURE: Lumbar spine, WHO diagnosis: osteoporosis. ......... Comparison......... Previous scan: 2012, Baseline scan: 2010 Total hip: Compared to the most recent scan, 4% decrease. Compared to the baseline scan, 6% decrease. Total spine: Compared to the most recent scan,No significant change Compared to the baseline scan, 3% decrease Procedure Note Olivia Alexander MD - 02/06/2015 EXAMINATION: DXA CENTRAL-SPINE,HIP, AND/OR WHOLE BODY CLINICAL HISTORY: on [facility], with osteoporosis;last 02.08 TECHNIQUE: Scans were acquired at the lumbar spine, and left hip. FINDINGS: Lowest T-score at the diagnostic region of interest: T-score: -3, TREASURE: Lumbar spine, WHO diagnosis: osteoporosis. ......... Comparison......... Previous scan: 2012, Baseline scan: 2010 Total hip: Compared to the most recent scan, 4% decrease. Compared to the baseline scan, 6% decrease. Total spine: Compared to the most recent scan,No significant change Compared to the baseline scan, 3% decrease IMPRESSION IMPRESSION: The measurements fulfill the WHO classification for osteoporosis and theyare decreasing since 2012. The rate of loss is 4% decrease over 2 years.Consider continue follow-up and add bone turnover markers to evaluate physiology. Estimating Fracture Risk: ? The relationship between [...] BMD measurements and plots are available in E[employer]under the imaging tab. Paper copies will be sent to providers without [employer] access.If you have received this report without the data sheet and do not haveaccess to [employer], please contact Radiology Production Department Supervisor at [phone] Friday 8am-4pm. Henrietta Null MD IMG DEXA ORDERABLES * (ABNORMAL) Lipid panel (fasting) (01/27/2015 10:31 AM EDT) [facility] Signature Chol, Total 234(H) <=199 mg/dL EFFIE BLUEIUM Comment: Recommendations of the NCEP Adult Treatment Panel for the following risk cutoff thresholds for the [place] population: Desirable: <200 mg/dL Borderline High: 200-239 mg/dL High: > or = 240 mg/dL Triglycerides 61 <=149 mg/dL EFFIE SEBASTIAN Comment: Reference Range: Normal triglycerides: ??<150 mg/dL Borderline high: ??150-199 mg/dL High: ??200-499 mg/dL Very high: ??>ad=456 mg/dL THANIA 2001; 285(19):6523-9505 HDL 67 >=40 mg/dL EFFIE SEBASTIAN Comment: Reference range: ??Low HDL: ?? < 40 mg/dL ??Normal: ?40-60 mg/dL ??Desirable: > 60 mg/dL THANIA 2001; 285(19):4689-8904 LDL Cholesterol 155(H) <=99 mg/dL EFFIE SEBASTIAN Comment: Reference range: ?? Optimal: ?<100 mg/dL ?? Near Optimal/Above Optimal: ?? 100-129 mg/dL ?? Borderline high: ?130-159 mg/dL ?? High: ? 160-189 mg/dL ?? Very high: ?>lb=673 mg/dL THANIA 2001: 285(19):0321-1578 Chol/HDL Ratio 3.5 ratio KADEN SEBASTIAN Comment: A Cholesterol to HDL ratio below 4:1 is desirable. ??Studies suggest that increased CAD risk occurs at ratios above 5 for females and above 6 for men. ? [place] Heart Association ??(http://www.americanheart.org) ? [place] Int Med, 1994; 121:641 ? AM J Med, 1998; 105(1A):48S Blood specimen (specimen) 01/27/2015 10:31 AM EDT 01/27/2015 1:35 PM EDT Narrative Resulting Agency Comment Spec In Lab Henrietta Null MD CHEMISTRY ORDERABLES [facility] * (ABNORMAL) BMP w/fasting Glucose (01/27/2015 10:31 AM EDT) Glucose Fasting 103(H) 65 - 99 mg/dL CERNER MILLENNIUM Comment: ?Fasting* Glucose Interpretive Criteria Normal ?65-99 [...] of Diabetes Mellitus, Position Statement from the [place] Diabetes Association. ??Diabetes Care, Volume 33, Supplement 1, Sep 2009 BUN 17 8 - 18 mg/dL CERNER MILLENNIUM Creatinine 0.72 0.70 - 1.20 mg/dL CERNER MILLENNIUM Comment: Please note that the pediatric reference intervals supplied above were not validated at [facility]. Results from pediatric patients should be interpreted in conjunction to the patient's age, height and muscle mass. Sodium 140 135 - 145 mmol/L CERNER MILLENNIUM Potassium 4.1 3.5 - 5.0 mmol/L CERNER MILLENNIUM Comment: Please note: ??Patients with WBC >100,000 may have falsely elevated Potassium levels. ??For accurate Potassium quantification in these patients send serum separator tube (gold top) for subsequent determinations. ??Contact the Clinical Chemistry Laboratory if there are any questions. Chloride 101 98 - 107 mmol/L CERNER MILLENNIUM CO2 27 22 - 31 mmol/L CERNER MILLENNIUM Anion Gap 12 5 - 15 mmol/L CERNER MILLENNIUM Calcium 9.2 8.5 - 10.5 mg/dL CERNER MILLENNIUM Estimated GFR >60 >=60 CERNER MILLENNIUM Comment: This estimated GFR (eGFR) value was [...] the following links into your internet browser. [email or web address] Blood specimen (specimen) 01/27/2015 10:31 AM EDT 01/27/2015 1:35 PM EDT Narrative Resulting Agency Comment Spec In Lab Henrietta Null MD CHEMISTRY ORDERABLES EFFIE SEBASTIAN documented in this encounter Visit Diagnoses Diagnosis Preventative health care Routine general medical examination at a health care facility Need for prophylactic vaccination against Streptococcus pneumoniae (pneumococcus) Need for prophylactic vaccination against streptococcus pneumoniae (pneumococcus) Trigeminal neuralgia Hyperlipidemia Other and unspecified hyperlipidemia Osteoporosis Osteoporosis, unspecified Cough, persistent Cough Osteoporosis Osteoporosis, unspecified documented in this encounter Care Teams Clam Shucking Machine Tender Relationship Specialty Start Date End Date Henrietta Null MD [facility] [address] [place] [address] PCP - General 12/20/10 05/08/20 documented as of this encounter
--- OUTSIDE RECORDS SUMMARY | 2024-04-23 12:17 | XMS_ITS | Encounter Summary ---
Author Organization Formerly [facility] [place] [address] Care Team Providers Care Parachute Supervisor Name Role Phone Henrietta Null MD Primary Care Provider [phone] Reason for Visit * Reason Onset Date Comments Prior Authorization 01/18/2013 Encounter Details Date Type Department Care Team (Late st Contact Info) Description 01/18/2013 Telephone Internal Medicine at [address] [phone] Henrietta Null MD [facility] [place] [address] Prior Authorization Social History Tobacco Use Types Packs/Day Years [...] encounter Miscellaneous Notes * Telephone Encounter - Lucia Ybarra CMA - 01/18/2013 3:22 PM EDT Pharmacy Prior Authorization Request [facility] [place] [address] Subscriber Insurance: [employer] -[phone] Identification Number: [id number] Physician: Tennille Medication Requested: Boniva Strength: 150 mg Frequency: 1 every 30 days Disp: 4 Refills: 3 Currently Taking: If yes, previous refill date: Disp: Refills: Patient's diagnosis for this medication: Osteoporosis ICD-9 CM code for this diagnosis: Prior medications trialed: Medication: Approx Dates: Outcome/Adverse Reactions: Medication: Approx Dates: Outcome/Adverse Reactions: Approval Date: 01/18/13 Expiration Date: 09/28/13 Additional Information: Code#[id number] documented in this encounter Plan of Treatment Upcoming Encounters Date Type Department Care Team (Late st Contact Info) Description 07/07/2024 11:00 AM EDT Office Visit Cardiology at [address] [phone] Lorena Lawrence MD [facility] [place] [address] documented as of this encounter Visit Diagnoses Not on filedocumented in this encounter Care Teams Parachute Supervisor Relationship Specialty Start Date End Date Henrietta Null MD [facility] [address] [place] [address] PCP - General 12/20/10 05/08/20 documented as of this encounter
--- OUTSIDE RECORDS SUMMARY | 2024-04-23 12:17 | XMS_ITS | Encounter Summary ---
Author Organization [facility] [place] [address] Care Team Providers Care Envelope Sealing Machine Operator Name Role Phone Henrietta Null MD Primary Care Provider [phone] Reason for Visit * Reason Comments Cough cold is getting wors e rather then better per pt Encounter Details Date Type Department Care Team (Late st Contact Info) Description 08/21/2012 9:00 AM EST Office [place] [phone] Laisha Sauceda APRN [facility] [place] [address] URI (upper respiratory infection) (Primary Dx) Discharge Disposition: Home Social History Tobacco Use [...] Sign Reading Time Taken Comments Blood Pressure 100/60 08/21/2012 9:08 AM EST Pulse 69 08/21/2012 9:08 AM EST Temperature 36.9 ??C (98.5 ??F) 08/21/2012 9:08 AM ES T Respiratory Rate - - Oxygen Saturation 99% 08/21/2012 9:08 AM EST room air Inhaled Oxygen Concentration - - Weight - - Height - - Body Mass Index - - documented in this encounter Patient Instructions * Patient Instructions* Laisha Sauceda APRN - 08/21/2012 9:22 AM EST Azithromycin 250 mg tablets. Take 2 tablets today and then 1 daily for a total of 5 days. Tesselon capsules 3 times per day as needed for cough Florajen3 tablets to prevent any gastrointestinal side effects from the antibiotic. Take one tabletdaily for one week beyond the course of the antibiotic. Take it at least one hour before or after the antibiotic. Drink at least 2 quarts of fluid daily Mucinex (plain) one daily as needed for congestion documented in this encounter Progress Notes * Laisha Sauceda APRN - 08/21/2012 9:18 AM EST Subjective: Patient ID: Heike Ramires is a 67 y.o. female. HPI Here today for cold that won't go away. Began one week ago and now is worse. Cough productive for large amount of green sputum. Coughs throughout the day with regular activities. 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 Denies chest pain, fever, rigors. Eating and drinking as usual. Patient Active Problem List Diagnoses Code ??? Ovarian fibroma 220EA ??? Osteoporosis 733.00C ??? Trigeminal neuralgia 350.1 ??? Preventative health care V70.0C ??? Trigger fingers, left thumb and ring, right ring 727.03B ??? Nevus, atypical - foot 216.9HP ??? Skin lesion of hand 709.9BD ??? Other specified aftercare following surgery V58.49 Current outpatient prescriptions ordered prior to encounter Medication Sig Dispense Refill ??? CALCIUM LACTATE ORAL Take by mouth. ??? INOSITOL ORAL Take by mouth. ??? cholecalciferol, Vitamin D3, (VITAMIN D) 1,000 unit Tab tablet Take 1 tablet by mouth daily. ??? ibandronate (BONIVA) 150 mg tablet Take 1 tablet by mouth every 30 days. 3 tablet 3 ??? senna-docusate (PERICOLACE) 8.6-50 mg per tablet Take 1 tablet by mouth 2 times daily as needed. 60 tablet 2 ??? TEGRETOL 200 mg tablet Take 1 tablet by mouth 4 times daily as needed. 60 tablet 5 ??? cyanocobalamin (VITAMIN B-12) 1,000 mcg tablet Review of Systems Review of Systems System Negative Positive (X) Constitutional x () Temperatures, () Fever/chills, () Night sweats, () Malaise, () Fatigue, () Insomnia HEENT () Headache, () Decrease hearing, (x) Ear pain/fullness, () Conjunctivitis, () Sinus pressure, (x) Nasal congestion, x() Nasal drainage/PND: (x) Thick, () Thin, () Clear, () Yellow, () Purulentdrainage, () Blood tinged; () Sneezing, () Sore throat, () Hoarseness Lymphatic x () Lymphadenopathy Card/vasc x () Chest pain, () Lightheadedness Respiratory () SOB, () SOBE, () Wheezing, () Tightness, (x) Cough - () Dry, () Loose, () Productive: (x) Thick, () Thin, () Clear, (x) Yellow, () Purulent drainage, () Blood tinged GI x () Abdominal, () Anorexia, () Nausea, () Vomiting, () Diarrhea, () Constipation, () Change in bowel habits, () Hematochezia M/S x () Pleuritic chest pain, () Body aches Neuro x () Dizziness Skin x () Rashes Objective: Physical Exam BP 100/60 Pulse 69 Temp 36.9 ??C (98.5 ??F) SpO2 99% Physical Exam Constitutional/General Normal x A&O x 3, appears stated age, makes good eye contact, well groomed, cooperative. Abnormal () Appears older then stated age, () Poor eye contact, () poor hygine, () non-cooperative,() Nervous/anxious Ears Normal No pain with movement of the auricle or tragus. Canals clear, TM normal. () AC>BC, Felix midline. Abnormal x () canal with impacted cerumen, () Canal edema, (x) Canal erythema, () Canal discharge, () Bulla with serous effusion, () Bulla with purulent effusion, () TM erythema, () TM perforation, () Tympanosclerosis (chalky white patch), () Tympanostomy tube Nose Normal x Nose without swelling or trauma. Mucosa pink and moist, septum midline, passages clear. Nodischarge or sinus tenderness. Abnormal () Septal deviation, () Mucosal inflammation & erythema, () Obstruction, () Nasal discharge, () Sinus tenderness: () Maxillary, () Frontal Mouth Normal x Mucosa pink and moist. Teeth in good repair, tongue midline. No ulcers noted. Abnormal () Vesicular eruptions, () Angular Cheilitis, () Angioedema, () Halitosis, () Ulcerations,() Masses, () Leukoplakia of the tongue, () Geographic tongue, () Black hairy tongue, () Fissured tongue, () Candidiasis, () Canker sore, () Gingivitis, () Jennifer Mandibulares Throat Normal Mucosa pink and moist, tonsils present and nonenlarged, pharynx clear. No ulcers noted. Abnormal x () PND, (x) Pharyngitis, () Tonsillar enlargement, () Tonsillar exudate, () Torus Palatinus Eyes Normal x Normal position and alignment of the eyes. Sclera clear, no conjunctival injection, iris clearly defined. Cornea and lens clear. PERRLA. Equal light reflex. () Ophthalmoscopic exam, () EOM WNL, () Visual Acuity: OD 20/20; OS 20/20, () Normal visual thomas by confrontation Abnormal () Conjunctival injected, () Sclera yellowed, () Sustained nystagmuc, () Deviation of the eye, () Ptosis (lid lag), () Periorbital edema, () Pinguecula (yellowish nodule on bulbar conjunctiva), () Sty, () Chalazion, () Episcleritis (inflammation of sclera), () Subconjunctival hemorrhage, () Ciliary injection Lymphatic Normal x No lympladenopathy noted. Abnormal () Posterior auricular, () Occipital, () Superficial cervical, () posterior cervical, () Supraclavicular, () Preauricular, () Tonsillar, () Submental, () Supramandibular, () Central axillae,() Femoral Respiratory Normal x CTA, thorax normal. Abnormal () Wheezing, () Rhonchi, () Fine crackles, () Coarse crackles, () Tightness/decreased breath sounds, () Supraclavicular retraction, () Decreased tactile fremitius, () Barrel chest, () Thoracic kyphoscoliosis Assessment and Plan: Healthy 67 year old with unresolved UTI symptoms after one week, coughing purulent sputum. Plan: Patient Instructions Azithromycin 250 mg tablets. Take 2 tablets today and then 1 daily for a total of 5 days. Tesselon capsules 3 times per day as needed for cough Florajen3 tablets to prevent any gastrointestinal side effects from the antibiotic. Take one tabletdaily for one week beyond the course of the antibiotic. Take it at least one hour before or after the antibiotic. Drink at least 2 quarts of fluid daily Mucinex (plain) one daily as needed for congestion documented in this encounter Plan of Treatment Upcoming Encounters Date Type Department Care Team (Late st Contact Info) Description 07/07/2024 11:00 AM EDT Office Visit Cardiology at [address] [phone] Lorena Lawrence MD [facility] [place] [address] documented as of this encounter Visit Diagnoses Diagnosis URI (upper respiratory infection)- Primary Acute upper respiratory infections of unspecified site documented in this encounter Care Teams Envelope Sealing Machine Operator Relationship Specialty Start Date End Date Henrietta Null MD [facility] [address] [place] [address] PCP - General 12/20/10 05/08/20 documented as of this encounter
--- OUTSIDE RECORDS SUMMARY | 2024-04-23 12:17 | XMS_ITS | Encounter Summary ---
Author Organization [facility] [place] [address] Care Team Providers Care Director Erp Name Role Phone Henrietta Null MD Primary Care Provider [phone] Reason for Visit * Reason Comments Skin Check Encounter Details Date Type Department Care Team (Late st Contact Info) Description 08/04/2012 2:40 PM EST [place] [address] Cecilia Joshi MD [facility] [address] [place] [address] Seborrheic keratosis; Lichenoid keratosis Discharge Disposition: Home Social History Tobacco Use [...] as of this encounter Progress Notes * Shelia Morgan MD - 08/10/2012 9:07 PM EST I directly supervised Dr. Joshi during this office visit. Dr. Joshi presented the history and physical exam to me. I then saw and examined this patient with Dr. Joshi. We reviewed the history and pertinent details and I confirmed the physical findings. I agree with the details of the history and physical exam as documented in Dr. Joshi's note. * Cecilia Joshi MD - 08/04/2012 2:23 PM EST Images from the original note were not included. DERMATOLOGY - ESTABLISHED PATIENT FOLLOW-UP Date of service: 08/04/2012 Heike Ramires : 1945 Dermatology Resident Note: Cecilia Joshi MD Chief Problem: Full skin cancer exam Chief Complaint Patient presents with ??? Skin Check Ms. Heike Ramires is a 67 y.o. female. This is an established patient, last seen by Dr. Collins on04/15/2012 HPI: Ms. Ramires presents for her six month skin exam. She has one round itchy spot on the left lower legthat has been there for a few years. She has tried OTC topicals (antibiotics) with no resolution inhealing. No other skin concerns today. She has had excisions of all of her atypical nevi and is healing well. The one on her hand had sutures retained but now is resolved. She is good about sun protection. Skin History: A - Skin, right upper [...] (see Comment). Excised by Dr. Sánchez 04/2012 Medical History: Patient Active Problem List Diagnoses Code ??? Ovarian fibroma 220EA ??? Osteoporosis 733.00C ??? Trigeminal neuralgia 350.1 ??? Preventative health care V70.0C ??? Trigger fingers, left thumb and ring, right ring 727.03B ??? Nevus, atypical - foot 216.9HP ??? Skin lesion of hand 709.9BD ??? Other specified aftercare following surgery V58.49 Medications: Current outpatient prescriptions ordered prior to encounter [...] ??? cyanocobalamin (VITAMIN B-12) 1,000 mcg tablet Allergies: Allergies Allergen Reactions ??? Oxycodone Hcl severe headaches ??? Methadone Hcl headaches ??? Oxidized Glycerol Triesters headache ??? Morphine Sulfate Nausea And Vomiting ??? Codeine Phos stomach ache Family History: No family history of melanoma or non-melanoma skin cancer Social History: , lives in [facility], loves spending time outdoors Review of Systems: - General: Feels well. - Skin: As per HPI; no other skin concerns. Examination: - Constitutional: Patient was alert, well-appearing and in no noticeable distress. - Skin: A full skin examination was performed. This includes the head, neck, face and scalp including behind the ears. The chest, abdomen, back, and axillae, as well as the arms, hands, palms, fingers. Legs, feet, toes and soles were also examined. Buttocks were also examined with patient consent. Genitalia were not examined Specific skin findings: 1. 4 x 6 mm brown papule with waxy, stuck-on appearance on right upper back, not inflamed or irritated 2. Scaly plaque left lower medial leg that is irritated and inflamed 3. Many well-healed linear scars at sites mentioned above, no evidence of recurrence Photograph obtained with verbal patient consent. Diagnosis/Assessment/Treatment Plan: 1. Favor seborrheic keratosis, right upper back: due to dark color of lesion, recommended measuringlesion and taking photograph in office today. Will follow in 6 months. 2. Lichenoid keratosis, left lower leg: discussed diagnosis with patient and recommended destruction of lesion for diagnostic purposes. The patient agreed to the procedure after discussing risks/benefits/alternatives. Procedure(s): Destruction of lesion(s) with cryotherapy. Number: 1 Location: as above Discussed procedure and expectations including risks (including risk of hypopigmentation) and benefits. Verbal consent obtained. Frozen with LN2, 15-30 second thaw time, TWICE. There were no complications; the patient tolerated the procedure well. Post-procedure expectations and wound care were reviewed. 3. History of atypical nevi: no evidence of recurrence. Recommend continued sun protection and every 6 months skin exams. Follow-up:in 6 months, sooner PRN. Instructed to call for questions or concerns. Cecilia Joshi MD Resident in Dermatology [facility] Patient seen and evaluated with staff title 1 tutor: Shelia Morgan MD Section of Dermatology [facility] documented in this encounter Plan of Treatment Upcoming Encounters Date Type Department Care Team (Late st Contact Info) Description 07/07/2024 11:00 AM EDT Office Visit Cardiology at [address] [place] [phone] Lorena Lawrence MD [facility] [place] [address] documented as of this encounter Visit Diagnoses Diagnosis Seborrheic keratosis Other seborrheic keratosis Lichenoid keratosis Acquired keratoderma documented in this encounter Care Teams Director Erp Relationship Specialty Start Date End Date Henrietta Null MD [facility] [place] [address] PCP - General 12/20/10 05/08/20 documented as of this encounter
--- OUTSIDE RECORDS SUMMARY | 2024-04-23 12:17 | XMS_ITS | Encounter Summary ---
Author Organization [facility] [place] [address] Care Team Providers Care Hole Digger Operator Name Role Phone Henrietta Null MD Primary Care Provider [phone] Reason for Visit * Reason Comments Procedure Left foot lesion and right hand lesion Encounter Details Date Type Department Care Team (Latest Contact Info) Description 04/29/2012 10:00 AM EDT Procedure [place] [address] Tan Jeff MD [facility] [place] [address] Nevus, atypical - foot (Primary Dx); Skin lesion of hand Discharge Disposition: Home Social History Tobacco Use Types Packs/Day Years Used Date Smoking Tobacco: Never Smokeless Tobacco: Never Alcohol Use Standard Drinks/Week Comments No 0 (1 standard drink = 0.6 oz pur e alcohol) Sex and Gender Information Value Date Recorded Sex Assigned at Not on file Gender Identity Not on file Sexual Orientation Not on file documented as of this encounter Patient Instructions * Patient Instructions* Lili Amin RN - 04/29/2012 11:19 AM EDT The healing process is different for each person and/or procedure. You can expect some discomfort. There will also be swelling and possibly bruising that will subside in the next few days or weeks. Note that your pain, swelling, bruising, and drainage are directly related to activity. Dressing: Keep your incision/dressing dry for ___two days. Steri strips: Leave the strips in place until your next visit or until they fall off. Sutures: ___x__Your sutures need to be removed in _next visit days. If bleeding occurs which soaks through the outside bandage, apply firm, direct pressure with your hand over the bandage for 15 m Showering: You may shower in two, Do not soak in a pool or bath until completely healed. Activity Restrictions: To minimize swelling, pain and bleeding please follow these instructions: Hand surgery: Keep the affected hand elevated above the heart for the next 2 - 7 days. Do not lift with or strain the hand Other restrictions/instructions: Keep left leg elevated as much as possible, partial weight bearinguntil next visit: Protect your incisions from the sun for at least 6 months Problems to report to your doctor: -A temperature over 100F or 38C -Excessive redness or warmth spreading away from the incision line after the first 48 hours. -Thick, yellow, foul smelling drainage larger than a dime from the incisions or drain site. -Increased pain that is not relieved by your pain medicine. To contact your doctor: -During office hours - Friday through Friday from 8am to 5pm - call [phone] -On weekends or after office hours - call [phone] and ask the aegis console operator track to page the Plastic Surgeon environmental marketer. -The nurses line - Friday through Friday from 8am to 5pm - call [phone]. documented in this encounter Progress Notes * Tan Jeff MD - 04/29/2012 10:04 AM EDT See procedure note documented in this encounter Procedure Notes * Tan Jeff MD - 04/29/2012 10:36 AM EDTAssociated Order(s): EXCISION BENIGN SCALP,NECK,HANDS,FEET,GEN (MSO) Procedure(s): EXC SKIN BENIG 1.1-2CM REMAINDR BODY PRFM; EXC SKIN BENIG 2.1-3CM IN OFFICE PRFM Pre-Procedure Diagnose(s): Nevus, atypical; Skin lesion of hand Procedure Note Plastic Surgery Procedure: excision of 2 lesions Anatomic Location: right hand palm and left dorsal foot Pre-op diagnosis: benign lesion Post-op diagnosis: same Consent: Written from patient after discussion of risks and benefits. Physicians: Tan Jeff M.D. Anesthesia: Local with lidocaine 1% with epi Description: After anesthesia was provided, the site was prepped and draped in sterile fashion. Specimens: right hand 2 cm and left foot 3 cm Complications: none immediate EBL: minimal Disposition: Pt. tolerated the procedure well. After the procedure, the patient was sent home Prior biopsy path - right hand atypical lentiginous junctional melanocytic proliferation transectedat peripheral and deep biopsy margins Left foot - severely atypical lentiginous and nested junctional melanocytic proliferation edges of the specimen are free of lesion in the planes examined documented in this encounter Miscellaneous Notes * Miscellaneous - Hollis Cook Pickled Meat - 04/30/2012 11:53 AM EDT documented in this encounter Plan of Treatment Upcoming Encounters Date Type Department Care Team (Late st Contact Info) Description 07/07/2024 11:00 AM EDT Office Visit Cardiology at [address] [place] [address] Lorena Lawrence MD [facility] [place] [address] documented as of this encounter Procedures Procedure Name Priority Date/Time Associated Diagnosis Comments SURGICAL PATHOLOGY REPORT Routine 04/29/2012 12:44 PM EDT EXC SKIN BENIG 2.1-3CM IN OFFICE PRFM Routine 04/29/2012 11:12 AM EDT Nevus, atypical - foot Skin lesion of hand EXC SKIN BENIG 1.1-2CM REMAINDR BODY PRFM Routine 04/29/2012 11:12 AM EDT Nevus, atypical - foot Skin lesion of hand SPECIMEN TO PATHOLOGY Today 04/29/2012 11:02 AM EDT Nevus, atypical - foot Skin lesion of hand SPECIMEN TO PATHOLOGY Today 04/29/2012 10:52 AM EDT Nevus, atypical - foot Skin lesion of hand documented in this encounter Results * SURGICAL PATHOLOGY REPORT (04/29/2012 12:44 PM EDT) Surgical Pathology Report ? [facility] ? Provider: ?? TAN JEFF ? Pt. Name: ?? HEIKE RAMIRES Nedra ? Acc #: ?[id number] ? Pt. ? Col Date: ?? 04/29/2012 ?/Sex: ?1945,(67 years),Female ? Rec Date: ?? 04/29/2012 ?LOC: ?4M ? SURGICAL PATHOLOGY ? ---Pathologic Diagnosis--- ? A - Skin, right hand, excision: ? Residual lentiginous junctional melanocytic proliferation and scar and ? granulation tissue secondary to a previous procedure; the margins are clear ? in these sections. See Comment. ? B - Skin, left foot, excision: ? Scar and granulation tissue secondary to a previous procedure; no ? residual severely atypical junctional melanocytic proliferation is ? identified in the sections. ? CR-0 ? 04/30/12 ? AJE ? 05/05/12 Verified by: ? Bo CONTRERAS, Magno Butterfield ? Dermatopathologist ? (Electronic Signature) ? The attending pathologist whose signature appears on this report has ? reviewed all diagnostic slides and has edited the gross and/or ? microscopic portion of the report in rendering the final pathologic ? diagnosis. ? ---Comment--- ? A - The residual lesion is relatively small and composed of a lentiginous ? proliferation of solitary and nested melanocytes extending along the ? dermoepidermal junction. Given these findings, these changes are consistent ? with a lentiginous junctional melanocytic nevus, acral-type. The margins ? are clear in these sections. Slides of the patient's prior biopsy ([id number] ? [id number]) have been reviewed. ??Multiple deeper levels have been examined. ? B - Slides of the patient's prior biopsy ([id number]) have been reviewed. ? Multiple deeper levels have been examined. ? ---Microscopic Description--- ? Slides reviewed, microscopic description not recorded. ? ---Gross Description--- ? A - Labeled/Fixative: RT palm, formalin. ? Qty/Size/Weight: ?Single, 1.7 x 0.8 x 0.3 cm. ? Tissue Description: ?? Ellipse of oropeza skin with a central, slightly ? depressed, encrusted region, 0.2 cm in diameter. ??A ? suture is present at one apex identified as proximal. ??The specimen is ? [facility] ? Provider: ?? TAN JEFF ? Pt. Name: ?? HEIKE RAMIRES ? Acc #: ?[id number] ? Pt. ? Col Date: ?? 04/29/2012 ?/Sex: ?1945,(67 years),Female ? Rec Date: ?? 04/29/2012 ?LOC: ?4M ? SURGICAL PATHOLOGY ? oriented with the suture at 12 o'clock. ??The margin from 12 to 3 to 6 ? o'clock is marked blue. ??The opposite margin and deep margin are marked ? black. ? Sections/Processing: ??The specimen is serially sectioned from 12 o'clock ? proximal to 6 o'clock distal and totally submitted in ? four cassettes with 12 o'clock apex in (A1) and 6 ? o'clock apex in (A4). ??(T4) ? B - Labeled/Fixative: LT foot, formalin. ? Qty/Size/Weight: ?Single, 1.7 x 1.0 x 0.3 cm. ? Tissue Description: ?? Ellipse of oropeza skin with a central depressed area of ? scarring, approximately 0.5 cm in diameter. ??One apex ? is marked with a suture. ??The specimen is oriented with sutured apex at 12 ? o'clock. ??From 12 to 3 to 6 o'clock the margin is marked blue; the opposite ? margin and deep margin are marked black. ? Sections/Processing: ??The specimen is serially sectioned from 12 to 6 ? o'clock and totally submitted in four cassettes with ? 12 o'clock apex in (B1) and 6 o'clock apex in (B4). ? (T4) ??aje/PPS ? ---Clinical Information--- ? Specimen Submitted: ? A - Rt hand - orientation suture proximal, excision (1) ? B - Lt foot - orientation proximal margin, excision (1) ? Clinical History/Diagnosis: ? A - Lesion right hand, suture proximal ? B - Left foot lesion previous biopsy re-excision approximately 1 year old, ? orientation proximal margin EFFIE SEBASTIAN 04/29/2012 12:4 4 PM EDT Tan Jeff MD PATHOLOGY/CYTOLOGY O RDERABLES EFFIE SEBASTIAN * EXC SKIN BENIG 1.1-2CM REMAINDR BODY PRFM, EXC SKIN BENIG 2.1-3CM IN OFFICE PRFM (04/29/2012 11:12 AM EDT) Narrative Tan Jeff MD - 04/29/2012 11:12 AM EDT Procedure Note Plastic Surgery Procedure: excision of 2 lesions Anatomic Location: right hand palm and left dorsal foot Pre-op diagnosis: benign lesion Post-op diagnosis: same Consent: Written from patient after discussion of risks and benefits. Physicians: Tan Jeff M.D. Anesthesia: Local with lidocaine 1% with epi Description: After anesthesia was provided, the site was prepped and draped in sterile fashion. Specimens: right hand 2 cm and left foot 3 cm Complications: none immediate EBL: minimal Disposition: Pt. tolerated the procedure well. After the procedure, the patient was sent home Prior biopsy path - right hand atypical lentiginous junctional melanocytic proliferation transected at peripheral and deep biopsy margins Left foot - severely atypical lentiginous and nested junctional melanocytic proliferation edges of the specimen are free of lesion in the planes examined Procedure Note Tan Jeff MD - 04/29/2012 10:36 AM EDT Procedure Note Plastic Surgery Procedure: excision of 2 lesions Anatomic Location: right hand palm and left dorsal foot Pre-op diagnosis: benign lesion Post-op diagnosis: same Consent: Written from patient after discussion of risks and benefits. Physicians: Tan Jeff M.D. Anesthesia: Local with lidocaine 1% with epi Description: After anesthesia was provided, the site was prepped anddraped in sterile fashion. Specimens: right hand 2 cm and left foot 3 cm Complications: none immediate EBL: minimal Disposition: Pt. tolerated the procedure well. After the procedure, thepatient was sent home Prior biopsy path - right hand atypical lentiginous junctional melanocyticproliferation transected at peripheral and deep biopsy margins Left foot - severely atypical lentiginous and nested junctionalmelanocytic proliferation edges of the specimen are free of lesion in theplanes examined Tan Jeff MD DERM PROCEDURE ORDER AMEE * Specimen to Pathology (surgical or derm) (04/29/2012 11:02 AM EDT) AP Specimen 04/29/2012 11:0 2 AM EDT 04/29/2012 11:02 AM EDT Narrative EFFIE SEBASTIAN - 04/29/2012 11:02 AM EDT Specimen requisition ordered. ??Separate Pathology report to follow Tan Jeff MD PATHOLOGY/CYTOLOGY O BRYAN Performing Organization Address [facility] Co de Phone Number EFFIE SEBASTIAN * Specimen to Pathology (surgical or derm) (04/29/2012 10:52 AM EDT) AP Specimen 04/29/2012 10:5 2 AM EDT 04/29/2012 10:52 AM EDT Narrative EFFIE SEBASTIAN - 04/29/2012 10:52 AM EDT Specimen requisition ordered. ??Separate Pathology report to follow Tan Jeff MD PATHOLOGY/CYTOLOGY O BRYAN Performing Organization Address [facility] Co de Phone Number EFFIE SEBASTIAN documented in this encounter Visit Diagnoses Diagnosis Nevus, atypical - foot- Primary Benign neoplasm of skin, site unspecified Skin lesion of hand Unspecified disorder of skin and subcutaneous tissue documented in this encounter Care Teams Hole Digger Operator Relationship Specialty Start Date End Date Henrietta Null MD [facility] [address] [place] [address] PCP - General 12/20/10 05/08/20 documented as of this encounter
--- OUTSIDE RECORDS SUMMARY | 2024-04-23 12:17 | XMS_ITS | Encounter Summary ---
Author Organization [facility] [place] [address] Care Team Providers Care Graphite Grinder Name Role Phone Henrietta Null MD Primary Care Provider Encounter Details Date Type Department Care Team (Latest Contact Info) Description 03/21/2014 8:55 AM EDT - 03/21/2014 2:58 PM EDT Hospital Encounter [place] [address] Trent Dubon MD [facility] [place] [address] Marylin Mccormick MD [facility] [place] [address] Yareli Talley MD [facility] [place] [address] Discharge Disposition: Home Social History Tobacco Use [...] Sign Reading Time Taken Comments Blood Pressure 93/39 03/21/2014 11:03 AM EDT Pulse 59 03/21/2014 11:03 AM EDT Temperature 36.3 ??C (97.3 ??F) 03/21/2014 9:46 AM ED T Respiratory Rate 16 03/21/2014 11:03 AM EDT Oxygen Saturation 99% 03/21/2014 11:03 AM EDT Inhaled Oxygen Concentration - - Weight 53.5 kg (118 lb) 03/21/2014 9:46 AM EDT Height 149.9 cm (4' 11) 03/21/2014 9:46 AM EDT Body Mass Index 23.83 03/21/2014 9:46 AM EDT documented in this encounter Discharge Instructions * Discharge Instructions* Joey Shah RN - 03/21/2014 11:04 AM EDT You may have received medication before and/or during your procedure which effects judgement and reaction time. Do not drive, operate machinery, drink alcoholic beverages, or make important decisions for 24 hours. Be careful on stairs, as you may be unsteady on your feet. You may eat a regular diet as tolerated. Do not smoke if you are alone. IV site -- slight redness or tenderness is normal. You may use a warm compress. If tenderness and redness increases or foul drainage occurs please contact your M.D. Please call [phone] before 5 pm with problems, questions or concerns. After 5pm call [phone] and ask to speak with the identification clerk information technology account manager. Discharge instructions reviewed with patient who expresses understanding. * Patient Instructions* Yareli Talley MD - 03/21/2014 10:59 AM EDT Please see Recommendations in the Provation procedure report which is documented in the procedural note in E-DH. * Attachments The following attachments cannot be sent through Care Everywhere. * COLONOSCOPY : POSTOP (NAMIBIAN) documented in this encounter Medications at Time of Discharge Medication Sig Dispensed Refills Start Date End Date CALCIUM LACTATE ORAL Take 1 tablet by mouth daily. INOSITOL ORAL Take 2 tablets by mouth 2 times daily. cholecalciferol, Vitamin D3, (VITAMIN D) 1,000 unit Tab tabletIndications:Osteo penia Take 1 tablet by mouth daily. 01/10/2012 BONIVA 150 mg tabletIndications:Osteo porosis Take 1 tablet by mouth every 30 days. Per patient request - Brand name only 4 tablet 3 01/28/2014 11/08/2014 TEGRETOL 200 mg tabletIndications:Trige shreyas neuralgia Take 1 tablet by mouth 2 times daily. 60 tablet 5 01/21/2014 01/27/2015 senna-docusate (PERICOLACE) 8.6-50 mg per tablet Take 1 tablet by mouth 2 times daily as needed. 60 tablet 2 11/28/2011 01/27/2015 cyanocobalamin (VITAMIN B-12) 1,000 mcg tablet 12/20/201006/01 documented as of this encounter H&P Notes * Yareli Talley MD - 03/21/2014 10:06 AM EDT Gastroenterology and Hepatology Pre-Procedure History and Physical Exam Procedure: Colonoscopy: Indication: Fhx CRC Patient Active Problem List Diagnosis Code ??? Ovarian fibroma 220 ??? Osteoporosis 733.00 ??? Trigeminal neuralgia 350.1 ??? Preventative health care V70.0 ??? Trigger fingers, left thumb and ring, right ring 727.03 ??? Nevus, atypical - foot 216.9 ??? Skin lesion of hand 709.9 ??? Other specified aftercare following surgery V58.49 EXAM: HEENT: Airway examined, oropharynx clear LUNGS: Clear to auscultation HEART: Regular rate and rhythm, normal S1, S2 ABDOMEN: Normal bowel sounds, soft, non tender, non distended, A/P Proceed with the planned endoscopic procedure. Risks and benefits of the procedure explained to the patient. Consent signed. documented in this encounter Miscellaneous Notes * Miscellaneous - Provider, Latonya - 03/21/2014 9:38 PM EDT * Miscellaneous - Provider, Scanning - 03/21/2014 1:51 PM EDT * Op Note - Yareli Talley MD - 03/21/2014 10:58 AM EDT [facility] Operative Note Patient Name: Heike Ramires : [id number] MR#: [id number] Case Date: 03/21/2014 Surgeon: Surgeon(s) and Role: * Yareli Talley MD - Primary Preoperative diagnosis: screening last colo 03/23/09 Full procedure note is documented under the Procedure section of eDH. documented in this encounter Plan of Treatment Upcoming Encounters Date Type Department Care Team (Late st Contact Info) Description 07/07/2024 11:00 AM EDT Office Visit Cardiology at [address] [place] [address] Lorena Lawrence [place] [address] documented as of this encounter Procedures Procedure Name Priority Date/Time Associated Diagnosis Comments SURGICAL PATHOLOGY REPORT Routine 03/21/2014 10:59 AM EDT SPECIMEN TO PATHOLOGY Routine 03/21/2014 10:59 AM EDT COLONOSCOPY, POLYPECTOMY, REMOVAL LESION BY SNARE (WRVU 4.57) 03/21/2014 10:21 AM EDT screening last colo 03/23/09 COLONOSCOPY Routine 03/21/2014 10:10 AM EDT documented in this encounter Results * Surgical Pathology Report (03/21/2014 10:59 AM EDT) FINAL DIAGNOSIS (AP) ? [facility] ? Provider: ?? BUTTERLY, YARELI F ?Pt. Name: ?? HEIKE RAMIRES ? Acc #: ?[id number] ?Pt. ? Col Date: ?? 03/21/2014 ? /Sex: ?1945,(69 years),Female ? Rec Date: ?? 03/21/2014 ? LOC: ?4T ? SURGICAL PATHOLOGY ? ---Pathologic Diagnosis--- ? Endoscopic biopsy - Tubular adenoma. ? CR-PX ? 03/22/14 ? AAS ? 03/22/14 Verified by: ? Edwin Parrish MD ? Pathologist ? (Electronic Signature) ? The attending pathologist whose signature appears on this report has ? reviewed all diagnostic slides and has edited the gross and/or ? microscopic portion of the report in rendering the final pathologic ? diagnosis. ? ---Gross Description--- ? A - Labeled/Fixativ e: Rectal polyp, formalin. ? Quantity/Size: Single, 0.3 x 0.2 x 0.2 cm. ? Tissue Description: Polypoid oropeza-pink tissue. ? Sections/Proces sing: (T1) ??pps ? ---Clinical Information--- ? Specimen Submitted: ? A - Rectal polyp ? Clinical History: ? Family history CRC. ? Clinical Diagnosis: ? Same 03/22/2014 8:59 AM EDT [facility] 03/21/2014 10:5 9 AM EDT Yareli Talley MD PATHOLOGY/CYTOLOGY O [place] Performing Organization Address City/[facility]/ZIP Co de Phone Number EFFIE SEBASTIAN [facility] [place] [address] * Specimen to Pathology (surgical or derm) (03/21/2014 10:59 AM EDT) AP Specimen 03/21/2014 10:5 9 AM EDT 03/21/2014 10:59 AM EDT Narrative EFFIE SEBASTIAN - 03/21/2014 10:59 AM EDT Specimen requisition ordered. ??Separate Pathology report to follow Yareli Talley MD PATHOLOGY/CYTOLOGY O JOHNCANNELTONGRACIELA Performing Organization Address [facility] Co de Phone Number EFFIE SEBASTIAN * COLONOSCOPY (03/21/2014 10:10 AM EDT) COLONOSCOPY [facility] Endoscopy Patient Name: Heike Ramires ? Procedure Date: 03/21/2014 10:10 AM ? [facility]: [id number] ? Date of : 1945 ? Age: 69 ? Order #: [id number] ? Procedure: ? Colonoscopy Indications: ? Screening in patient at increased ? risk: Colorectal cancer in two ? sisters, possibly before age 60 (pt ? notes 50s or 60s for both) Patient Profile: ? s/p ovarian fibroma, trigeminal ? neuralgia Providers: ? Yareli Talley MD, Marsha Ryan ? TUSHAR Sheets, Nicholas Kenny, ? Machine Stripper Referring MD: ?Henrietta Null MD Medicines: ? [...] Null MD GENERAL SURGICAL ORD ERABLES [employer]ATION documented in this encounter Visit Diagnoses Not on filedocumented in this encounter Active and Recently Administered Medications Times are shown in EDT. PRN Medication Order 03/19/2014 03/20/2014 03/21/2014 fentaNYL 50mcg/mL injection (CANCELED) ONCE PRN, Starting on Fri03/21/14 at 1024, Until Fri03/21/14 at 1127, Pain, Intra-Operative (Intra-Procedure), Routine 1024 (Given - Provid er: Marsha Sheets RN)1027 (Given - Provider: Marsha Sheets RN)1032 (Given - Provider: Marsha Sheets RN)1035 (Given - Provider: Marsha Sheets RN)1041 (Given - Provider: Marsha Sheets RN) midazolam (PF) (VERSED) 1 mg/mL injection (CANCELED) ONCE PRN, Starting on Fri03/21/14 at 1024, Until Fri03/21/14 at 1127, Sleep, Intra-Operative (Intra-Procedure), Routine 1024 (Given - Provid er: Marsha Sheets RN)1027 (Given - Provider: Marsha Sheets RN)1032 (Given - Provider: Marsha Sheets RN)1035 (Given - Provider: Marsha Sheets RN)1046 (Given - Provider: Marsha Sheets RN) documented in this encounter Care Teams Graphite Grinder Relationship Specialty Start Date End Date Henrietta Null MD [facility] [place] [address] PCP - General 12/20/10 05/08/20 documented as of this encounter
--- OUTSIDE RECORDS SUMMARY | 2024-04-23 12:17 | XMS_ITS | Encounter Summary ---
Author Organization Formerly [facility] [place] [address] Care Team Providers Care Writer Technical Publications Name Role Phone Henrietta Null MD Primary Care Provider [phone] Encounter Details Date Type Department Care Team (Latest Contact Info) Description 02/03/2013 10:30 AM EDT Laboratory Appointment Internal Medicine at [address] [id number] Osteoporosis; Hyperlipidemia Social History Tobacco Use Types Packs/Day Years [...] AM EDT Office Visit Cardiology at [address] [place] [phone] Lorena Lawrence MD [facility] [place] [address] documented as of this encounter Procedures Procedure Name Priority Date/Time Associated Diagnosis Comments VITAMIN D, 25-HYDROXY Routine 02/03/2013 10:55 AM EDT Osteoporosis BMP W/FASTING GLUCOSE Routine 02/03/2013 10:30 AM EDT Hyperlipidemia LIPID PANEL (REFLEX DIRECT LDL) Routine 02/03/2013 10:30 AM EDT Hyperlipidemia documented in this encounter Results * VIT D Total Evaluation (02/03/2013 10:55 AM EDT) 25-OH Vit D Total 40 30 - 100 ng/mL [facility] Comment: Deficient <10 ng/mL Insufficient 10 to 29 ng/mL Sufficient 30 to 100 ng/mL Potential Intoxication >100 ng/mL According to the US National Osteoporosis Foundation, Vitamin D concentrations >30 ng/mL are sufficient to protect bone health. ??The National Kidney Foundation has similarly stated that patients with Vitamin D concentrations <30ng/mL should be considered to be insufficient or deficient. http://www.kidney.org/professionals/KDOQI/guidelines_bone/Guide7.htm http://www.nof.org/professionals/clinical-guidelines The IDS iSYS Vitamin D Immunoassay detects both 25-OH Vitamin D2 and 25-OH Vitamin D3, but only a total Vitamin D concentration is reported. Blood specimen (specimen) 02/03/2013 10:55 AM EDT 02/03/2013 12:22 PM EDT Narrative Resulting Agency Comment Spec In Lab Henrietta Null MD CHEMISTRY ORDERABLES [facility] * (ABNORMAL) BMP w/fasting Glucose (02/03/2013 10:30 AM EDT) Glucose Fasting 90 65 - 99 mg/dL [facility] Comment: ?Fasting* Glucose Interpretive Criteria Normal ?65-99 [...] of Diabetes Mellitus, Position Statement from the [place] Diabetes Association. ??Diabetes Care, Volume 33, Supplement 1, Sep 2009 BUN 17 8 - 18 mg/dL CERNER MILLENNIUM Creatinine 0.61(L) 0.70 - 1.20 mg/dL CERNER MILLENNIUM Comment: Please note that the pediatric reference intervals supplied above were not validated at [facility]. Results from pediatric patients should be interpreted in conjunction to the patient's age, height and muscle mass. Sodium 140 135 - 145 mmol/L CERNER MILLENNIUM Potassium 3.9 3.5 - 5.0 mmol/L CERN[facility] MILLENNIUM Comment: Please note: ??Patients with WBC >100,000 may have falsely elevated Potassium levels. ??For accurate Potassium quantification in these patients send serum separator tube (gold top) for subsequent determinations. ??Contact the Clinical Chemistry Laboratory if there are any questions. Chloride 105 98 - 107 mmol/L CERNER MILLENNIUM CO2 26 22 - 31 mmol/L CERNER MILLENNIUM Anion Gap 9 5 - 15 mmol/L CERNER MILLENNIUM Calcium 8.6 8.5 - 10.5 mg/dL CERNER MILLENNIUM Estimated [...] the following links into your internet browser. http://www.nkdep.nih.gov/lab-evaluation.shtml http://www.kidney.org/professionals/ Blood specimen (specimen) 02/03/2013 10:30 AM EDT 02/03/2013 12:22 PM EDT Narrative Resulting Agency Comment Spec In Lab Henrietta Null MD CHEMISTRY ORDERABLES [facility] [employer]IUM * (ABNORMAL) Lipid panel (fasting) (02/03/2013 10:30 AM EDT) [facility] Chol, Total 242(H) <=199 mg/dL EFFIE BLUEIUM Comment: Recommendations of the NCEP Adult Treatment Panel for the following risk cutoff thresholds for the [place] population: Desirable: <200 mg/dL Borderline High: 200-239 mg/dL High: > or = 240 mg/dL Triglycerides 82 <=149 mg/dL EFFIE SEBASTIAN Comment: Reference Range: Normal triglycerides: ??<150 mg/dL Borderline high: ??150-199 mg/dL High: ??200-499 mg/dL Very high: ??>an=825 mg/dL THANIA 2001; 285(19):3621-5206 HDL 74 >=40 mg/dL EFFIE SEBASTIAN Comment: Reference range: ??Low HDL: ?? < 40 mg/dL ??Normal: ?40-60 mg/dL ??Desirable: > 60 mg/dL THANIA 2001; 285(19):2809-0508 LDL Cholesterol 152(H) <=99 mg/dL EFFIE SEBASTIAN Comment: Reference range: ?? Optimal: ?<100 mg/dL ?? Near Optimal/Above Optimal: ?? 100-129 mg/dL ?? Borderline high: ?130-159 mg/dL ?? High: ? 160-189 mg/dL ?? Very high: ?>wz=820 mg/dL THANIA 2001: 285(19):2722-9948 Chol/HDL Ratio 3.3 ratio KADEN SEBASTIAN Comment: A Cholesterol to HDL ratio below 4:1 is desirable. ??Studies suggest that increased CAD risk occurs at ratios above 5 for females and above 6 for men. ? [place] Heart Association ??(http://www.americanheart.org) ? Airam Int Med, 1994; 121:641 ? AM J Med, 1998; 105(1A):48S Blood specimen (specimen) 02/03/2013 10:30 AM EDT 02/03/2013 12:22 PM EDT Narrative Resulting Agency Comment Spec In Lab Henrietta Null MD CHEMISTRY ORDERABLES Performing Organization Address City/State/[facility] Co de Phone Number [facility] documented in this encounter Visit Diagnoses Diagnosis Osteoporosis Osteoporosis, unspecified Hyperlipidemia Other and unspecified hyperlipidemia documented in this encounter Care Teams Writer Technical Publications Relationship Specialty Start Date End Date Henrietta Null MD [facility] [address] [place] [address] PCP - General 12/20/10 05/08/20 documented as of this encounter
--- OUTSIDE RECORDS SUMMARY | 2024-04-23 12:17 | XMS_ITS | Encounter Summary ---
Author Organization [facility] [place] [address] Care Team Providers Care Program Host Name Role Phone Henrietta Null MD Primary Care Provider [phone] Reason for Visit * Reason Comments Sinusitis Cough coughing up greenish flem Headache face sore Encounter Details Date Type Department Care Team (Late st Contact Info) Description 01/13/2015 10:25 AM EDT Office Visit Internal Medicine at [address] [address] Vale Burton APRN [facility] [place] [address] Acute frontal sinusitis, recurrence not specified Discharge Disposition: Home Social History Tobacco Use [...] Sign Reading Time Taken Comments Blood Pressure 113/61 01/13/2015 10:14 AM EDT Pulse 67 01/13/2015 10:14 AM EDT Temperature 36.7 ??C (98.1 ??F) 01/13/2015 10:14 AM E DT Respiratory Rate - - Oxygen Saturation 95% 01/13/2015 10:14 AM EDT Inhaled Oxygen Concentration - - Weight 54.4 kg (120 lb) 01/13/2015 10:14 AM EDT Height 149.9 cm (4' 11) 01/13/2015 10:14 AM EDT Body Mass Index 24.24 01/13/2015 10:14 AM EDT documented in this encounter Progress Notes * Vale Burton, CROSS TIE CUTTER - 01/13/2015 10:46 AM EDT PCP: HENRIETTA NULL MD Chief Complaint Patient presents with ??? Sinusitis ??? Cough coughing up greenish flem ??? Headache face sore SUBJECTIVE: Heike Ramires is a 69 y.o. female who presents for cough and Sinus pain for the last 3 weeks. She has tried muccinex without improvement. She has eye pain and soreness. She has frontal headaches. She reports that she has some photophobia. - She has chronic cough, productive with yellow sputum in the morning. Review of Systems Constitutional: Positive for fatigue. Negative for fever and chills. HENT: Positive for congestion, ear pain, postnasal drip, rhinorrhea and sinus pressure. Negative for sore throat. Respiratory: Positive for cough. Negative for chest tightness, shortness of breath and wheezing. Cardiovascular: Negative for chest pain. Gastrointestinal: Negative for nausea, vomiting, abdominal pain and diarrhea. Skin: Negative for rash. Neurological: Positive for headaches. Negative for dizziness, weakness and light-headedness. Hematological: Negative for adenopathy. Allergies Allergen Reactions ??? Methadone Hcl headaches ??? Morphine Sulfate Nausea And Vomiting ??? Oxidized Glycerol Triesters headache ??? Oxycodone Hcl severe headaches ??? Codeine Phosphate stomach ache Current Outpatient Prescriptions Medication Sig Dispense Refill ??? BONIVA 150 mg Tablet Take 1 tablet by mouth every 30 days. Per patient request - Brand name only 4 tablet 3 ??? TEGRETOL 200 mg tablet Take 1 tablet by mouth 2 times daily. 60 tablet 5 ??? CALCIUM LACTATE ORAL Take by mouth. ??? INOSITOL ORAL Take by mouth. ??? cholecalciferol, Vitamin D3, (VITAMIN D) 1,000 unit Tab tablet Take 1 tablet by mouth daily. ??? senna-docusate (PERICOLACE) 8.6-50 mg per tablet [...] ??? Other specified aftercare following surgery V58.49 OBJECTIVE: Filed Vitals: 01/13/15 1014 BP: 113/61 Pulse: 67 Temp: 36.7 ??C (98.1 ??F) Height: 149.9 cm (4' 11) Weight: 54.432 kg (120 lb) SpO2: 95% PHYSICAL EXAM: Physical Exam Constitutional: She is oriented to person, place, and time. She appears well- developed and well-nourished. HENT: Head: Normocephalic and atraumatic. Right Ear: Tympanic membrane, external ear and ear canal normal. Left Ear: Tympanic membrane, external ear and ear canal normal. Nose: Right sinus exhibits maxillary sinus tenderness and frontal sinus tenderness. Left sinus exhibits maxillary sinus tenderness and frontal sinus tenderness. Mouth/Throat: Oropharynx is clear and moist. Eyes: Conjunctivae are normal. Pupils are equal, round, and reactive to light. Cardiovascular: Normal rate, regular rhythm and normal heart sounds. Pulmonary/Chest: Effort normal and breath sounds normal. No respiratory distress. She has no wheezes. She has no rales. Lymphadenopathy: She has no cervical adenopathy. Neurological: She is alert and oriented to person, place, and time. Skin: Skin is warm and dry. Psychiatric: She has a normal mood and affect. ASSESSMENT & PLAN: Heike was seen today for sinusitis, cough and headache. Diagnoses and associated orders for this visit: Acute frontal sinusitis, recurrence not specified - amoxicillin-clavulanate (AUGMENTIN) 875-125 mg Tablet; Take 1 tablet by mouth 2 times daily. - patient to contact clinic if symptoms do not improve or get worse - discussed saline nasal spray or neti pot documented in this encounter Plan of Treatment Upcoming Encounters Date Type Department Care Team (Late st Contact Info) Description 07/07/2024 11:00 AM EDT Office Visit Cardiology at [address] [place] [address] Lorena Lawrence MD [facility] [place] [address] documented as of this encounter Visit Diagnoses Diagnosis Acute frontal sinusitis, recurrence not specified documented in this encounter Care Teams Program Host Relationship Specialty Start Date End Date Henrietta Null MD [facility] [address] [address] PCP - General 12/20/10 05/08/20 documented as of this encounter
--- OUTSIDE RECORDS SUMMARY | 2024-04-23 12:17 | XMS_ITS | Encounter Summary ---
Author Organization [facility] [place] [address] Care Team Providers Care Homicide Detective Name Role Phone Henrietta Null MD Primary Care Provider [phone] Reason for Visit * Reason Comments Advice Only lesion left dorsal f oot, right palm Encounter Details Date Type Department Care Team (Late st Contact Info) Description 04/22/2012 3:05 PM EDT Office [place] [phone] Tan Sánchez MD [facility] [place] [place] [address] Nevus, atypical - foot (Primary Dx) Discharge Disposition: Home Social History [...] Sign Reading Time Taken Comments Blood Pressure 112/72 04/22/2012 3:49 PM EDT Pulse - - Temperature - - Respiratory Rate - - Oxygen Saturation - - Inhaled Oxygen Concentration - - Weight 53.1 kg (117 lb) 04/22/2012 3:49 PM EDT Height 149.9 cm (4' 11) 04/22/2012 3:49 PM EDT Body Mass Index 23.63 04/22/2012 3:49 PM EDT documented in this encounter Patient Instructions * Patient Instructions* Ramona Renteria RN - 04/22/2012 3:56 PM EDT Welcome to [employer], your secure online access to your electronic medical record at [facility]. Using [employer] you will be able to send messages to your providers, view your test results, renew prescriptions, schedule appointments, and much more. Follow these instructions to enter your personal [employer] account for the first time: 1. Start your internet browser and type [email or web address] into the address bar. 2. In the New User box on the right-hand side of the Welcome page click the link that states, ???I have an activation code.?? 3. On the Identification page, follow these steps: a) Enter your [employer] activation code: [email or web address] b) Expires: 06/06/12 03:56 PM IMPORTANT: This Activation Code will on the above mentioned date. If you do not sign up for [employer] by this date, you will need to request another activation code. c) Enter your date of , using the calendar tool provided. d) Enter your Zip code. e) Select ???submit?? to go to the next page. 4. On the Create Account page, follow these steps: a) Create a [employer] username. This can???t be changed, so choose one you won???t forget. b) Create a password that???s at least six characters long, and that contains at least two numbers.Your password can be changed at any time. Confirm your password by entering it once more. c) Enter your email address. This will be used to alert you to new information. Confirm your email address by entering it once more. d) Enter your security question. This will be used if you forget your password. e) Enter your security answer. Confirm your security answer by entering it once more. f) Select ???submit?? to view your electronic medical record. If you have any questions about [employer] or your Access Code, please call for [place] for [place] or for [place]. If you need technical support, please e-mail [email or web address]. Remember, myD-H is NOT for urgent needs! Always dial 911 for medical emergencies. You were given written and verbal preoperative instructions today. To prepare for your upcoming surgery, please review the Pre-Operative Instruction brochure that youwere given at today's appointment. Feel free to call our office [phone] if you have any questions or concerns. We monitor the phones from 8-5 Friday through Friday. documented in this encounter Progress Notes * Ramona Renteria RN - 04/22/2012 4:24 PM EDT Pre-Op Teaching for Surgery Surgery: excision lesion right palm, left foot Written and verbal pre-operative instructions given and reviewed with patient. Patient was advised to discontinue use of NSAIDS and aspirin products 14 days prior to surgery unless otherwise advised by patient's PCP/Marketing Program Coordinator for cardiac symptoms, to perform the pre-op scrub, and coordinate ride home following surgery. Discussed and answered all questions including post opcourse and activity limitations. Photos not taken Patient was told to call the clinic for any questions or concerns prior to surgery. * Tan Sánchez MD - 04/22/2012 4:04 PM EDT PLASTIC SURGERY CONSULTATION Tan Sánchez M.D. HENRIETTA NULL MD CC: Skin lesion on the dorsum left foot, right palm HPI: Heike Ramires is a 67 y.o. female Here in consultation at the request of Dr. Collins for consideration to discuss excision and reconstruction of a lesion that is on the dorsum of her left foot.She also has a lesion in her right palm that has been recommended for excision. She had her foot lesion biopsied and it has been recommended for excision. Past Medical History Diagnosis Date ??? Dysplastic nevus Past Surgical History Procedure Date ??? Facial nerve decompression 07/26/2009 Micraovascular decompression for trigeminal neuralgia ??? Removal of ovary/tube(s) 01/07/2011 ??SALPINGO-OOPHORECTOMY, UNILATERAL OR TERESA performed by JOSSUE PEREZ at [facility] OR History Social History ??? Marital Status: Spouse Name: N/A Number of Children: N/A ??? Years of Education: N/A Occupational History ??? Not on file. Social History Main Topics ??? Smoking status: Never Smoker ??? Smokeless tobacco: Never Used ??? Alcohol Use: No ??? Drug Use: No ??? Sexually Active: Yes -- Male partner(s) Other Topics Concern ??? Not on file Social History Narrative Lives in [place], with her . 4 children ([place], [facility], [facility], nearby). 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 Enjoying cooking, gardening, swimming, making porcelain dolls. No tobNo etohrare caffeine (tea)exercise at work only Father age 88, + cerebral aneurysm, also with AAAMother age 40 with SLEColon Cancer - sisterPancreatic Duct cancer? - sister, also with COPDBrother - from trauma, pt relates to etohSister - diverticulitis Allergies Allergen Reactions ??? Oxidized Glycerol Triesters headache ??? Methadone Hcl headaches ??? Morphine Sulfate Nausea/Vomiting ??? Codeine Phos stomach ache ??? Oxycodone Hcl severe headaches Current outpatient prescriptions ordered prior to encounter [...] ??? cyanocobalamin (VITAMIN B-12) 1,000 mcg tablet REVIEW OF SYSTEMS: GI, . Psych, Neuro, Renal, Immun., Heme, Card, Pulm: Negative EXAMINATION: AFVSS Constitutional: NAD HEENT: MMM, normocephalic, EOMI Pulm: symmetric excursion, unlabored, no audible wheeze Cor: pulse regular Abd: soft, NT/ND Musculoskel: gross full ROM x 4 extrem Skin: no rashes or skin breakdown noted Neuro: motor and sensory exam grossly normal Left dorsum foot 5 x 5 mm Right hand palm lesion Assessment: Heike Ramires 67 y.o. female patient with left dorsum foot lesion requiring excisionand possible skin graft from the groin. She also has a lesion on the palm of her right hand. I advised that I can excise the lesion on her hand in minor surgery and I can excise her left hand lesion with primary closure. She is aware that she will require her foot to be elevated post-op. We discussed potential risks and complications which include but are not limited to: Pain, bleeding, infection, scarring, asymmetry, hematoma, seroma, poor cosmetic outcome, failure ofprocedure, possible need for revision, damage to adjacent structures. Photos to be obtained with signed consent. Recommendations: Excision malignant lesion left dorsum foot with possible full thickness skin graft from groin Excision right palm lesion with primary closure Bertha Huerta am acting as scribe only for Dr. Sánchez. documented in this encounter Plan of Treatment Upcoming Encounters Date Type Department Care Team (Late st Contact Info) Description 07/07/2024 11:00 AM EDT Office Visit Cardiology at [address] [place] [address] Lorena Lawrence MD [facility] [place] [address] documented as of this encounter Visit Diagnoses Diagnosis Nevus, atypical - foot- Primary Benign neoplasm of skin, site unspecified documented in this encounter Care Teams Homicide Detective Relationship Specialty Start Date End Date Henrietta Null MD [facility] [place] [address] PCP - General 12/20/10 05/08/20 documented as of this encounter
--- OUTSIDE RECORDS SUMMARY | 2024-04-23 12:17 | XMS_ITS | Encounter Summary ---
Author Organization Formerly [facility] [place] [address] Care Team Providers Care Debt Collection Specialist Name Role Phone Hernietta Null MD Primary Care Provider [phone] Reason for Visit * Reason Comments Follow Up Surgery possible infection i n right hand Encounter Details Date Type Department Care Team (Latest Contact Info) Description 05/15/2012 11:30 AM EDT Clinical [place] [phone] NURSE, PLASTIC SURGERY Other specified aftercare following surgery (Primary Dx) Discharge Disposition: Home Social History [...] Sign Reading Time Taken Comments Blood Pressure - - Pulse - - Temperature 36.8 ??C (98.2 ??F) 05/15/2012 2:38 PM ED T Respiratory Rate - - Oxygen Saturation - - Inhaled Oxygen Concentration - - Weight - - Height - - Body Mass Index - - documented in this encounter Patient Instructions * Patient Instructions* Sandy Ellsworth RN - 05/15/2012 2:58 PM EDT Welcome to [facility], your secure online access to your electronic medical record at [facility]. Using [employer] you will be able to send messages to your providers, view your test results, renew prescriptions, schedule appointments, and much more. Follow these instructions to enter your personal [employer] account for the first time: 1. Start your internet browser and type [email or web address] into the address bar. 2. In the New User box on the right-hand side of the Welcome page click the link that states, ???I have an activation code.?? 3. On the Identification page, follow these steps: a. Enter your myD-H activation code: [email or web address] b. Expires: 06/06/12 03:56 PM IMPORTANT: This Activation Code will on the above mentioned date. If you do not sign up for [employer] by this date, you will need to request another activation code. c. Enter your date of , using the calendar tool provided. d. Enter your Zip code. e. Select ???submit?? to go to the next page. 4. On the Create Account page, follow these steps: a. Create a [employer] username. This can???t be changed, so choose one you won???t forget. b. Create a password that???s at least six characters long, and that contains at least two numbers.Your password can be changed at any time. Confirm your password by entering it once more. c. Enter your email address. This will be used to alert you to new information. Confirm your email address by entering it once more. d. Enter your security question. This will be used if you forget your password. e. Enter your security answer. Confirm your security answer by entering it once more. f. Select ???submit?? to view your electronic medical record. If you have any questions about myD-H or your Access Code, please call for [place], for [place] or for [place]. If you need technical support, please e-mail [email or web address]. Remember, myD-H is NOT for urgent needs! Always dial 911 for medical emergencies. Keep an eye on your hand. If you notice that there is any increase in pain or redness give our office a call. The steri strips may stay on until they fall off on their own. You may replace them if you like or cover the area with a bandaid for comfort. Nurses - [phone] Secretaries - [phone] If you have a problem at night or on the weekend, call the main hospital number [phone] and ask for the plastic surgeon production crew supervisor documented in this encounter Progress Notes * Sandy Ellsworth RN - 05/15/2012 3:11 PM EDT Pt presents today with concern about possible infection in right hand s/p excision lesion on 04-29-2012. S: I think the place where the stitches were removed is red and maybe infected. O: Incision line appears intact with surrounding skin appearing slightly pink. No drainage, fever, swelling. A: Normal post op course P: Reassurance given. Advised pt that if she noted increased redness, swelling, red streaks, warmthor draiange, she should call us back. Correct phone numbers for contact given. Steri strips applied documented in this encounter Plan of Treatment Upcoming Encounters Date Type Department Care Team (Late st Contact Info) Description 07/07/2024 11:00 AM EDT Office Visit Cardiology at [address] [address] Lorena Lawrence MD [facility] [place] [address] documented as of this encounter Visit Diagnoses Diagnosis Other specified aftercare following surgery- Primary documented in this encounter Care Teams Debt Collection Specialist Relationship Specialty Start Date End Date Henrietta Null MD [facility] [address] [facility] [place] [address] PCP - General 12/20/10 05/08/20 documented as of this encounter
--- OUTSIDE RECORDS SUMMARY | 2024-04-23 12:17 | XMS_ITS | Encounter Summary ---
Author Organization [facility] [place] [address] Care Team Providers Care Heel Lining Paster Name Role Phone Henrietta Null MD Primary Care Provider [phone] Reason for Visit * Reason Comments Suture / Staple Removal Encounter Details Date Type Department Care Team (Late st Contact Info) Description 04/27/2012 8:00 AM EDT [place] [address] DERMATOLOGY, NURSE Visit for suture removal (Primary Dx) Discharge Disposition: Home Social History [...] as of this encounter Progress Notes * Josefina Waller LPN - 04/27/2012 8:25 AM EDT Heike Ramires 04/27/2012 Suture Removal 1. Here for scheduled suture removal 2. Post excision for : Skin, right upper back, shave biopsy: Compound dysplastic nevus with severe atypia, peripheral margins appear negative in the plane of sections examined. Focally involved hair follicle is at the deep biopsy edge. . History: Patient has had no problems or concerns since the procedure. Examination: Wound edges show good apposition and a healthy wound. No sign of infection or dehiscence. Diagnosis: 1. Post excision of the above, here for suture removal Plan: 1. Sutures removed without complication. 2. Steri-strips placed for good measure. 3. Follow up as scheduled. JOSEFINA WALLER LPN documented in this encounter Plan of Treatment Upcoming Encounters Date Type Department Care Team (Late st Contact Info) Description 07/07/2024 11:00 AM EDT Office Visit Cardiology at [address] [address] Lorena [address] MD [facility] [place] [address] documented as of this encounter Visit Diagnoses Diagnosis Visit for suture removal- Primary Encounter for removal of sutures documented in this encounter Care Teams Heel Lining Paster Relationship Specialty Start Date End Date Henrietta Null MD [facility] [address] [place] [address] PCP - General 12/20/10 05/08/20 documented as of this encounter
--- OUTSIDE RECORDS SUMMARY | 2024-04-23 12:17 | XMS_ITS | Encounter Summary ---
Author Organization [facility] [place] [address] Care Team Providers Care Tool Procurement Coordinator Name Role Phone Henrietta Null MD Primary Care Provider [phone] Reason for Visit * Reason Onset Date Comments Other 04/28/2012 Pt returned your call Encounter Details Date Type Department Care Team ([facility] Contact Info) Description 04/28/2012 [place] [address] Luis Alberto Collins MD [facility] [address] [place] [address] Other (Pt returned your call) Social History Tobacco Use Types Packs/Day Years [...] encounter Miscellaneous Notes * Telephone Encounter - Poonam Carrasco - 04/28/2012 2:00 PM EDT BILL PT Pt returned your call. Please call her back at [phone]. Nestor Levin documented in this encounter Plan of Treatment Upcoming Encounters Date Type Department Care Team ([facility] Contact Info) Description 07/07/2024 11:00 AM EDT Office Visit Cardiology at [address] [facility] [place] [phone] Lorena Lawrence MD [facility] [place] [address] documented as of this encounter Visit Diagnoses Not on filedocumented in this encounter Care Teams Tool Procurement Coordinator Relationship Specialty Start Date End Date Henrietta Null MD [facility] [address] [place] [address] PCP - General 12/20/10 05/08/20 documented as of this encounter
--- OUTSIDE RECORDS SUMMARY | 2024-04-23 12:17 | XMS_ITS | Encounter Summary ---
Author Organization [facility] Address [facility] [place] [address] Care Team Providers Care Photoengraving Helper Name Role Phone Henrietta Null MD Primary Care Provider [phone] Reason for Visit * Reason Onset Date Comments Medication Refill 11/08/2014 Encounter Details Date Type Department Care Team (Late st Contact Info) Description 11/08/2014 Refill Internal Medicine at [address] [id number] Shelia Mckeon Osteoporosis Social History Tobacco Use Types Packs/Day Years [...] AM EDT Office Visit Cardiology at [address] [place] [address] Lorena Lawrence MD [facility] [place] [address] documented as of this encounter Visit Diagnoses Diagnosis Osteoporosis Osteoporosis, unspecified documented in this encounter Care Teams Photoengraving Helper Relationship Specialty Start Date End Date Henrietta Null MD [facility] [address] [place] [address] [place] [address] PCP - General 12/20/10 05/08/20 documented as of this encounter
--- OUTSIDE RECORDS SUMMARY | 2024-04-23 12:17 | XMS_ITS | Encounter Summary ---
Author Organization [facility] [place] [address] Care Team Providers Care Banquet Director Name Role Phone Henrietta Null MD Primary Care Provider [phone] Reason for Visit * Reason Comments Medication Refill Encounter Details Date Type Department Care Team (Late st Contact Info) Description 01/18/2013 Refill Internal Medicine at [address] [address] Henrietta Null MD [facility] INTERNAL [facility] [place] [address] Social History Tobacco Use Types Packs/Day Years [...] AM EDT Office Visit Cardiology at [address] [address] Lorena Lawrence MD [facility] [place] [address] documented as of this encounter Visit Diagnoses Not on filedocumented in this encounter Care Teams Banquet Director Relationship Specialty Start Date End Date Henrietta Null MD [facility] [address] [place] [address] PCP - General 12/20/10 05/08/20 documented as of this encounter
--- OUTSIDE RECORDS SUMMARY | 2024-04-23 12:17 | XMS_ITS | Encounter Summary ---
Author Organization [facility] [place] [address] Care Team Providers Care Technical Sales Advisor Name Role Phone Henrietta Null MD Primary Care Provider [phone] Reason for Visit * Reason Onset Date Comments Medication Refill 01/28/2014 Encounter Details Date Type Department Care Team (Late Contact Info) Description 01/28/2014 Refill Internal Medicine at [address] [facility] [place] [address] Osteoporosis (Primary Dx) Social History Tobacco Use Types Packs/Day Years [...] Office Visit Cardiology at [address] [phone] Lorena Lawrence MD [facility] [place] [address] documented as of this encounter Visit Diagnoses Diagnosis Osteoporosis- Primary Osteoporosis, unspecified documented in this encounter Care Teams Technical Sales Advisor Relationship Specialty Start Date End Date Henrietta Null MD [facility] [address] [address] PCP - General 12/20/10 05/08/20 documented as of this encounter
--- OUTSIDE RECORDS SUMMARY | 2024-04-23 12:17 | XMS_ITS | Encounter Summary ---
Author Organization [facility] [place] [address] Care Team Providers Care Waitstaff Captain Name Role Phone Henrietta Null MD Primary Care Provider [phone] Reason for Visit * Reason Comments Skin Check Encounter Details Date Type Department Care Team (Late st Contact Info) Description 03/11/2014 2:00 PM EDT Follow-Up Dermatology at [facility] [address] [place] [address] Cecilia Joshi MD [facility] [place] [address] Multiple benign nevi (Primary Dx); History of dysplastic nevus Discharge Disposition: Home Social History Tobacco Use [...] this encounter Patient Instructions * Patient Instructions* Pricilla Garay LPN - 03/11/2014 1:46 PM EDT Sun Protection and Your Skin It is important to protect yourself from the harmful effects of ultraviolet rays that come from thesun. Exposure to ultraviolet light causes many undesirable conditions including: ?? Skin Cancer. Most skin cancers develop in areas of the skin that get the most sun exposure. Basal Cell Carcinoma (BCC), and Squamous Cell Carcinoma (SCC) are the most common. Melanoma is the deadliest. All skin cancers require treatment to prevent serious complications. ?? Sunburn. Too many sunburns or sunburns that blister increase your risk of developing skin cancer. Recommendations on protecting yourself from sunburns can be found in this AVS. ?? Aging of the Skin. Sun-exposed skin ages more quickly than normal skin. It turns rough and leathery over time. This skin can develop large freckles, a splotchy appearance, age spots, wrinkles and scaly growths. In addition to causing skin cancer, tanning beds are associated with premature aging of the skin. How Do I Protect Myself from the Sun? You can still protect yourself from the harmful effects of sun exposure and enjoy the outdoors! Thefollowing recommendations are designed to allow you to participate in all the activities you enjoy while maintaining a safe level of protection for you and your family: ?? Generously apply a broad-spectrum water-resistant sunscreen with a Sun Protection Factor (SPF) of 30 or more to all exposed skin. Broad-spectrum provides protection from both ultraviolet A (UVA)and ultraviolet B (UVB) rays. Reapply sunscreen every 2 hours, even on cloudy days, and after swimming or sweating. ?? Not all sunscreens are the same. There are a lot of sunscreen ingredients. Sunscreens work by either forming a physical or a chemical barrier to ultraviolet light. Zinc oxide or Titanium dioxide are physical barriers to the sun. They are thick and opaque--generally require a little more effort to rub in, but are generally considered safer, especially for sensitive skin. We recommend sunscreensthat contain at least one physical barrier. Look for these brands: ?? Blue Lizard ?? [place] Baby ?? Neutrogena ?? Vanicream ?? Wear protective clothing. Long-sleeved shirts, pants, a wide-brimmed hat and sunglasses are all excellent choices. There are many clothing companies that now specialize in SPF 50 or greater clothing that is engineered to be comfortable and breathable in hot weather or during exercise. A couple of choices are: ?? Coolibar (Social & Beyond.Tomfooleryibar.RedMart) ?? LL Ospina (www.llbean.com) ?? Friday Afternoons (www.T-Quad 22.RedMart) ?? Seek shade. The sun's rays are strongest between 10a.m. And 4 p.m. ?? Use extra caution near water, snow and sand as they reflect and intensify the damaging rays of the sun which can increase your chance of a sunburn. Adapted from The Sun and Your Skin. [place] [employer]. Copyright 2010. documented in this encounter Progress Notes * Ariane Roger MD - 03/11/2014 2:00 PM EDT I directly supervised Dr. Joshi during this office visit. Dr. Joshi presented the history and physical exam to me. I then saw and examined this patient with Dr. Joshi. We reviewed the history and pertinent details and I confirmed the physical findings. I agree with the details of the history and physical exam as documented in Dr. Joshi's note. ARIANE ROGER MD Staff Physician * Cecilia Joshi MD - 03/11/2014 1:36 PM EDT DERMATOLOGY - ESTABLISHED PATIENT FOLLOW-UP Date of service: 03/11/2014 Heike Ramires : 1945 Dermatology Resident Note: Cecilia Joshi MD Chief Complaint Patient presents with ??? Skin Check This is an established patient, last seen by myself on 02/03/2013. HPI: Heike Ramires presents for full skin examination today, no concerning lesion at this time. No other skin concerns. She does think the papule on her right upper back has darkened some what - does not give her symptoms or seem to be growing. She is doing a good job of staying out of the sun. No other skin concerns today. Skin History: A - Skin, right upper [...] F. Right upper back, shave biopsy: Seborrheic keratosis. Medical History: Past Medical History Diagnosis Date ??? Dysplastic nevus Medications: Current Outpatient Prescriptions on File Prior to Visit Medication Sig Dispense Refill ??? BONIVA 150 mg tablet Take 1 tablet by [...] mcg tablet Allergies: Allergies Allergen Reactions ??? Methadone Hcl headaches ??? Morphine Sulfate Nausea And Vomiting ??? Oxidized Glycerol Triesters headache ??? Oxycodone Hcl severe headaches ??? 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 [...] Buttocks and breasts were also examined with patient consent. Genitalia were not examined. Specific skin findings: 1. Multiple, 0.3-0.5cm, medium-brown, evenly-pigmented macules and papules. All with regular pigment pattern on dermoscopy. No pigmented lesions suspicious for melanoma. 2. Well healed scars as above Diagnosis/Assessment/Treatment Plan: 1. Multiple benign-appearing nevi ?? Consistent with benign nevi, patient reassured ?? Will continue to monitor Reviewed various types of skin cancer and ABCDEs of melanoma. Brochure given. 2. History of dysplastic nevi: no evidence of recurrence. Continue to emphasize sun protection. RTC 2 years (sooner PRN). Instructed to call for questions/concerns. I am documenting this encounter acting as the scribe for and in the presence of Dr. Joshi: PRICILLA GARAY LPN Reviewed and signed by Cecilia Joshi MD Resident in Dermatology [facility] Seen with staff bookkeeping teacher: Ariane Roger MD Section of Dermatology [facility] documented in this encounter Plan of Treatment Upcoming Encounters Date Type Department Care Team (Late st Contact Info) Description 07/07/2024 11:00 AM EDT Office Visit Cardiology at [address] [phone] Lorena Lawrence MD [facility] [place] [address] documented as of this encounter Visit Diagnoses Diagnosis Multiple benign nevi- Primary Benign neoplasm of skin, site unspecified History of dysplastic nevus Personal history of diseases of skin and subcutaneous tissue documented in this encounter Care Teams Waitstaff Captain Relationship Specialty Start Date End Date Henrietta Null MD [facility] [address] [place] [address] PCP - General 12/20/10 05/08/20 documented as of this encounter
--- OUTSIDE RECORDS SUMMARY | 2024-04-23 12:17 | XMS_ITS | Encounter Summary ---
Author Organization [facility] [place] [address] Care Team Providers Care Clinical Psychiatrist Name Role Phone Henrietta Null MD Primary Care Provider [phone] Reason for Visit * Reason Onset Date Comments Medication Refill 01/11/2013 Encounter Details Date Type Department Care Team (Late Contact Info) Description 01/11/2013 Refill Internal Medicine at [address] [address] Henrietta Null MD [facility] INTER[facility] [place] [address] Osteoporosis (Primary Dx) Social History Tobacco Use [...] AM EDT Office Visit Cardiology at [address] [phone] Lorena Lawrence MD [facility] [place] [address] documented as of this encounter Visit Diagnoses Diagnosis Osteoporosis- Primary Osteoporosis, unspecified documented in this encounter Care Teams Clinical Psychiatrist Relationship Specialty Start Date End Date Henrietta Null MD [facility] [address] [place] [address] PCP - General 12/20/10 05/08/20 documented as of this encounter
--- OUTSIDE RECORDS SUMMARY | 2024-04-23 12:17 | XMS_ITS | Encounter Summary ---
Author Organization [facility] [place] [address] Care Team Providers Care Associate Director Of Development Name Role Phone Henrietta Null MD Primary Care Provider [phone] Reason for Visit * Reason Onset Date Comments Questions 04/21/2012 Encounter Details Date Type Department Care Team (Late st Contact Info) Description 04/21/2012 [place] [address] Luis Alberto Collins MD [facility] [place] [address] Questions Social History Tobacco Use Types Packs/Day [...] Miscellaneous Notes * Telephone Encounter - Irma De Oliveira LPN - 04/21/2012 10:09 AM EDT Call from pt. Has bruising after surgery. No tenderness, no swelling,healing well. Small amount of bruising normal with surgery. documented in this encounter Plan of Treatment Upcoming Encounters Date Type Department Care Team (Late st Contact Info) Description 07/07/2024 11:00 AM EDT Office Visit Cardiology at [address] [place] [phone] Lorena Lawrence MD [facility] [place] [address] documented as of this encounter Visit Diagnoses Not on filedocumented in this encounter Care Teams Associate Director Of Development Relationship Specialty Start Date End Date Henrietta Null MD [facility] [address] [place] [address] PCP - General 12/20/10 05/08/20 documented as of this encounter
--- OUTSIDE RECORDS SUMMARY | 2024-04-23 12:17 | XMS_ITS | Encounter Summary ---
Author Organization [facility] Address [facility] [place] [address] Care Team Providers Care Polysomnograph Tech Name Role Phone Henrietta Null MD Primary Care Provider [phone] Encounter Details Date Type Department Care Team (Latest Contact Info) Description 02/03/2013 10:08 AM EDT - 02/03/2013 11:59 PM EDT Hospital Encounter XRay at [address] [place] [address] CLINIC, Henrietta Cordon MD [facility] [place] [address] Osteoporosis Discharge Disposition: Home Social History Tobacco Use [...] mouth daily. 01/10/2012 fluticasone (FLONASE) 50 mcg/actuation nasal sprayIndications:Allerg ic rhinitis 2 sprays by Each Nare route daily. 16 g 11 01/20/2013 01/20/2014 BONIVA 150 mg tabletIndications:Osteo porosis Take 1 tablet by mouth every 30 days. Per patient request - Brand name only 4 tablet 3 01/11/2013 01/21/2014 senna-docusate (PERICOLACE) 8.6-50 mg per tablet Take [...] AM EDT Office Visit Cardiology at [address] [place] [address] Lorena Lawrence MD [facility] [place] [address] documented as of this encounter Procedures Procedure Name Priority Date/Time Associated Diagnosis Comments DXA CENTRAL SPINE, HIP, AND/OR WHOLE BODY (GENERIC) Routine 02/03/2013 12:55 PM EDT Osteoporosis, unspecified documented in this encounter Results * Dexa central-spine, hip, and/or whole body (02/03/2013 12:55 PM EDT) Anatomical Region Laterality Modality C-spine, Hip N/A Radiographic Juliet ging 02/03/2013 12:5 5 PM EDT Narrative 02/04/2013 8:47 AM EDT Examination DXA CENTRAL-SPINE,HIP, AND/OR WHOLE BODY Clinical History osteoporosis LAST DEXA 01/04/11 Technique Scans were acquired at the lumbar spine, left hip. ?? Findings Lowest T-score at a diagnostic region of interest: T-score: -3.1,TREASURE: Lumbar spine, WHO diagnosis: Osteoporosis ........Comparison......... Recent scan: 01/04/2011, Baseline scan: 01/04/2011 Total Hip: Compared to the most recent scan, not significantly changed. ?? Total spine: Compared to the most recent scan, decreased 4.6 %. Impression Bone mineral density has decreased. Osteoporosis by World Health organization diagnostic criteria. _ Estimating Fracture Risk: The relationship between bone mineral density (BMD) [...] independent, risk factors in addition to BMD. The World Health Organization (WHO) has developed [...] website which you are encouraged to review. DEXA data sheets with BMD measurements and plots are available in E-DH under the imaging tab. Paper copies will be sent to providers without [employer] access. If you have received this report without the data sheet and do not have access to [employer], please contact Radiology Summer Camp Counselor at [phone] Friday thru Friday 8am-4pm. Procedure Note Baljeet Galloway MD - 02/04/2013 Examination DXA CENTRAL-SPINE,HIP, AND/OR WHOLE BODY Clinical History osteoporosis LAST DEXA 01/04/11 Technique Scans were acquired at the lumbar spine, left hip. Findings Lowest T-score at a diagnostic region of interest: T-score: -3.1,TREASURE: Lumbar spine, WHO diagnosis: Osteoporosis ........Comparison......... Recent scan: 01/04/2011, Baseline scan: 01/04/2011 Total Hip: Compared to the most recent scan, not significantly changed. Total spine: Compared to the most recent scan, decreased 4.6 %. Impression Bone mineral density has decreased. Osteoporosis by World Health organization diagnostic criteria. _ Estimating Fracture Risk: The relationship between bone mineral density (BMD) and risk of fractureis well established. As BMD decreases, risk increases. Quantifying risk is difficult and is usually limited to estimation of the relative risk - aterm which may have limited value when trying to discuss an individual's risk. Estimating the absolute risk for a patient requires an understanding ofthe incidence rate in a given population and consideration of multiple,partially independent, risk factors in addition to BMD. The World Health Organization (WHO) has developed a fracture riskprediction tool that calculates a ten-year risk of major osteoporotic fracture basedon femoral neck bone density measurements and nine clinical risk factors for individuals who have not been treated for osteoporosis. This is available through an interactive web-based interface (http://www.shef.ac.uk/FRAX/)and can [...] associated with most risk factors. For example, thesignificant increase in risk associated with multiple prior fractures compared to asingle prior fracture is not taken into account. Similarly, the location of aprevious fracture, the amount of glucocorticoids and number of cigarettes smokedare not considered. These limitations are discussed in a Frequently AskedQuestions section of the FRAX website which you are encouraged to review. DEXA data sheets with BMD measurements and plots are available in E-DHunder the imaging tab. Paper copies will be sent to providers without E-DHaccess. If you have received this report without the data sheet and do not haveaccess to E-DH, please contact Radiology Summer Camp Counselor at [phone] Fridaythru Friday 8am-4pm. Henrietta Null MD IMG DEXA ORDERABLES documented in this encounter Visit Diagnoses Diagnosis Osteoporosis Osteoporosis, unspecified documented in this encounter Care Teams Polysomnograph Tech Relationship Specialty Start Date End Date Henrietta Null MD [facility] [address] INTERNAL [facility] [place] [address] PCP - General 12/20/10 05/08/20 documented as of this encounter
--- OUTSIDE RECORDS SUMMARY | 2024-04-23 12:17 | XMS_ITS | Encounter Summary ---
Author Organization [facility] [place] [address] Care Team Providers Care Tip Banding Machine Operator Name Role Phone Henrietta Null MD Primary Care Provider Reason for Referral * Consultation (Routine) - Closed Specialty Diagnoses / Procedures Referred By Evelio mathis Referred To Contact Gastroenterology Diagnoses Screening for colon cancer Henrietta Null MD [facility] [place] [address] [facility] [address] [place] [phone] Referral ID Status Reason Start Date Expiration Date V isits Requested Visits Authorized [id number] Closed Test Only 01/21/2014 07/20/2014 1 1 Reason for Visit * Reason Comments Annual Wellness Visit Encounter Details Date Type Department Care Team (Late st Contact Info) Description 01/21/2014 9:25 AM EDT Office Visit Internal Medicine at [address] [address] Henrietta Null MD [facility] [place] [address] Trigeminal neuralgia (Primary Dx); Osteoporosis; Screening for colon cancer; Hyperlipidemia Discharge Disposition: Home Social History Tobacco Use [...] Sign Reading Time Taken Comments Blood Pressure 127/62 01/21/2014 9:21 AM EDT Pulse 61 01/21/2014 9:21 AM EDT Temperature 36.7 ??C (98 ??F) 01/21/2014 9:21 AM EDT Respiratory Rate - - Oxygen Saturation 98% 01/21/2014 9:21 AM EDT Inhaled Oxygen Concentration - - Weight 56.2 kg (124 lb) 01/21/2014 9:21 AM EDT Height 149.9 cm (4' 11) 01/21/2014 9:21 AM EDT Body Mass Index 25.04 01/21/2014 9:21 AM EDT documented in this encounter Patient Instructions * Patient Instructions* Bhavna Faustin LNA - 01/21/2014 9:26 AM EDT I would like you to sign up for myD-H, which will give you secure online access to your electronic medical record at [facility] and the ability to communicate with your health care team whenand where it???s most convenient for you. With myD-H you will be able to: - look at parts of your medical record including test results and office notes - send and receive messages to/from me and your other providers - renew prescriptions - schedule appointments. To sign up, go to [email or web address] and click I have an activation code and follow the instructions. Here is your activation code: [email or web address] Expires: 03/07/2014 9:26 AM Remember, myD-H is NOT for urgent needs! Always dial 911 for medical emergencies. documented in this encounter Progress Notes * Henrietta Null MD - 01/21/2014 10:08 AM EDT YEARLY VISIT I. HISTORY Reason(s) for Visit: Here for yearly visit with review of her acute and chronic medical issues. Patient Active Problem List Diagnosis ??? Trigger fingers, left thumb and ring, right ring ??? Preventative health care DT: Tdap 12/13/08 (from scanned pcp records in [facility]) Pneumovax: 2009 Influenza:2012 Shingles: 2011 Cigarettes: none Alcohol: none Caffeine:little Exercise: active in job, treadmill 1/2 Seat Belts: consistent Helmets:consistent Cholesterol (Total/HDL/LDL): Lab Results Component Value Date CHLPL 242* 02/03/2013 HDL 74 02/03/2013 TRIG 82 02/03/2013 LDLCHOL 152* 02/03/2013 Diabetes Screenin Optho Screening: recent Calcium/Vitamin D: adequate Colon Cancer Screening: Colonoscopy spring 2008 - neg Osteoporosis Screening: Dexa 2012, lowest - 3.1 spine, hip within osteopenic range Breast Cancer Screening: Mammogram 01/10 neg Self Breast Exam: Yes Cervical Cancer Screening: Pap smear 11/2008, never with abnl Sexual History: not sexually active Control:n/a HIV Status: unknown Advanced Directives: No ??? Ovarian fibroma - s/p resection, no issues since. ??? Osteoporosis - on boniva, taking ca, vit d. Vit d level low with elevated PTH in past, better after replacement. Last dexa Examination DXA CENTRAL-SPINE,HIP, AND/OR WHOLE BODY Clinical [...] Osteoporosis by World Health organization diagnostic criteria. ??? Trigeminal neuralgia - much better after treatment with inositol, has been able to taper off the tegretol and is now taking 200 twice daily. Sees neurologist in [place] intermittently. ROS: Constitutional - no fevers, chills, weight stable, no fatigue, no sleep problems - everyone asks her where she gets all her energy. HEENT - No difficulty swallowing. Hearing decreased R ear - thinks related to trigeminal neuralgia surgery. No nasal congestion, + postnasal drip, no better with flonase. Skin - no rash, + new lesion on foot, is planning to show systems administrator. Eyes - No visual changes, blurriness or visual loss Respiratory - No SOB, KRUGER, wheeze, cough, sputum production Cardiovascular - No CP, palpitations, angina,claudication Breast - No lesions, lumps or nodules noted Gastrointestinal - + constipation. Uses senna 2-3/week. + lots of bloating/discomfort until startedto go gluten free and that has resolved. Genitourinary - No abnormal discharge, masses or nodules. No dysuria, urinary hesitancy, incontinence Musculoskeletal - No weakness, pain at rest or with movement. No arthralgias, arthritis,reduced motion Endocrine - No polydipsia, polyuria, palpitations, temperature intolerance Psychiatric - No sadness, depression, anxiety, anhedonia, suicidal ideation Neurological - No numbness, tingling, loss of sensation, weakness or function of limbs. No headaches Heme/Lymph - No bleeding, lymph node swelling, night sweats All other systems negative GERIATRIC ASSESSMENT falls - none vision - stable hearing - slightly better Urinary incontinence: none Fecal incontinence: none IADL: can use telephone, finances, medications, laundry, housework, shopping, driving in familar areas. ADL: independent in bathing, dressing, transfers, toileting, grooming, feeding Mobility: the patient is ambulatory and very active Use of Assisted Devise: none Lifeline: none Nutrition/weight loss: none Dentition: No issues Mentation: intact Depression: denies Advanced directives: yes Driving: no recent accidents. Outpatient Prescriptions Marked as Taking for the 01/21/14 encounter (Office Visit) with Henrietta Null MD Medication Sig Dispense Refill ??? TEGRETOL 200 mg tablet Take 1 tablet by mouth 2 times daily. 60 tablet 5 ??? BONIVA 150 mg tablet Take 1 tablet by mouth every 30 days. Per patient request - Brand name only 4 tablet 3 ??? [DISCONTINUED] BONIVA 150 mg tablet Take 1 tablet by mouth every 30 days. Per patient request -Brand name only 4 tablet 3 ??? CALCIUM LACTATE ORAL Take by mouth. ??? INOSITOL ORAL Take by mouth. ??? cholecalciferol, Vitamin D3, (VITAMIN D) 1,000 unit Tab tablet Take 1 tablet by mouth daily. ??? senna-docusate (PERICOLACE) 8.6-50 mg per tablet Take 1 tablet by mouth 2 times daily as needed. 60 tablet 2 ??? [DISCONTINUED] TEGRETOL 200 mg tablet Take 1 tablet by mouth 4 times daily as needed. 60 tablet5 ??? cyanocobalamin (VITAMIN B-12) 1,000 mcg tablet Social History Narrative Lives in [place], with her . 4 children ([place], [facility], [facility], nearby). 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 Enjoying cooking, gardening, swimming. No tob No etoh rare caffeine (tea) exercise at work only Father age 88, + cerebral aneurysm, also with AAA Mother age 40 with SLE Colon Cancer - sister Pancreatic Duct cancer? - sister, also with COPD Brother - from trauma, pt relates to etoh Sister - diverticulitis History including PMH, Family and Social history reviewed and updated II. PHYSICAL EXAM: Filed Vitals: 01/21/14 0921 BP: 127/62 Pulse: 61 Temp: 36.7 ??C (98 ??F) TempSrc: Oral Height: 149.9 cm (4' 11) Weight: 56.246 kg (124 lb) SpO2: 98% General - Comfortable, no apparent distress. ENT - Ears: Tympanic membranes and canals normal, hearing normal. Sinuses: Nontender Oropharynx: oral mucosa moist without lesions Eyes- EOMI, anicteric, PERRL, conjunctiva noninjected Neck - No lymphadenopathy. Full range of motion, no bruits, no thyromegaly. Lungs - Clear to auscultation. Heart - RRR, S1,S2, no murmur, gallop or rub. Pulses intact. Abdomen - Soft, nontender, normal active bowel sounds, neg hsm or masses. Extremities - No clubbing, cyanosis or edema. Joints unremarkable Skin - No sig lesions. No rashes. Nodes - Negative x cervical axillary, inguinal Chest/Back - No spinal tenderness, no CVAT Breast Exam - No masses or tenderness. axillary nodes negative. Pelvic exam - Neurological - Orientation - person, place and time. Cranial nerves intact. III. MEDICAL DECISION MAKING: Assessment/Plan: Heike was seen today for yearly f/up. Diagnoses and associated orders for this visit: Trigeminal neuralgia - doing very well. Cont inositol and taper of tegretol. - TEGRETOL 200 mg tablet; Take 1 tablet by mouth 2 times daily. Osteoporosis - cont aggressive intervention with vitamin supplement. Wonder if celiac disease mighthave played role?? - PTH; Future - VIT D Total Evaluation; Future - BONIVA 150 mg tablet; Take 1 tablet by mouth every 30 days. Per patient request - Brand name only Screening for colon cancer - + fm - Referral to Gastroenterology Hyperlipidemia - check lipid levels. - Lipid panel (fasting); Future - CMP w/fasting Glucose; Future Health Maintenance Summary HEPATITIS C SCREENING (B. [id number]) Overdue 1985 TETANUS VACCINE Next Due 12/13/2018 Done 12/13/2008 Imm Admin: Tdap Vaccine BREAST CA SCREEN EVERY 2 YRS (40-74) Next Due 01/15/2016 Done 01/14/2014 MAMMO DIGITAL BILATERAL SCREENING WITH CAD Patient has more history with this topic... COLONOSCOPY EVERY 5 YEARS Next Due 01/27/2014 Done outside per patient (enter details in comments) 01/27/2009 PNEUMOVAX ADULT 65 This plan is no longer active. Done 06/29/2010 Imm Admin: Pneumococcal Polyvalent 23 BONE DENSITY,FEMALE 65 This plan is no longer active. Done 02/03/2013 DEXA CENTRAL-SPINE, HIP, AND/OR WHOLE BODY Patient has more history with this topic... INFLUENZA (FLU) VACCINE This plan is no longer active. Done 07/19/2013 Imm Admin: Influenza PF, Split (High Dose) Patient has more history with this topic... TDAP ADULT This plan is no longer active. Done 12/13/2008 Imm Admin: Tdap Vaccine ZOSTER VACCINE This plan is no longer active. Done 01/13/2012 Imm Admin: Zoster Vaccine, Live documented in this encounter Plan of Treatment Upcoming Encounters Date Type Department Care Team (Late st Contact Info) Description 07/07/2024 11:00 AM EDT Office Visit Cardiology at [address] [phone] Lorena Lawrence MD [facility] [place] [address] Scheduled Referrals Name Type Priority Associated Diagnoses Order Schedule Referral to Gastroenterology Outpatient Referral Routine Screening for colon cancer Ordered: 01/21/2014 documented as of this encounter Results * (ABNORMAL) CMP w/fasting Glucose (01/28/2014 8:32 AM EDT) [facility] Glucose Fasting 91 65 - 99 mg/dL CERNER MILLENNIUM Comment: [...] of Diabetes Mellitus, Position Statement from the [place] Diabetes Association. ??Diabetes Care, Volume 33, Supplement 1, Sep 2009 BUN 8 8 - 18 mg/dL CERNER MILLENNIUM Creatinine 0.64(L) 0.70 - 1.20 mg/dL CERNER MILLENNIUM Comment: Please note that the pediatric reference intervals supplied above were not validated at [facility]. Results from pediatric patients should be interpreted in conjunction to the patient's age, height and muscle mass. Sodium 140 135 - 145 mmol/L CERNER MILLENNIUM Potassium 4.2 3.5 - 5.0 mmol/L CERNER MILLENNIUM Comment: Please note: ??Patients with WBC >100,000 may have falsely elevated Potassium levels. ??For accurate Potassium quantification in these patients send serum separator tube (gold top) for subsequent determinations. ??Contact the Clinical Chemistry Laboratory if there are any questions. Chloride 103 98 - 107 mmol/L CERNER MILLENNIUM CO2 25 22 - 31 mmol/L CERNER MILLENNIUM Anion Gap 12 5 - 15 mmol/L CERNER MILLENNIUM Calcium 8.8 8.5 - 10.5 mg/dL CERNER MILLENNIUM Total Protein 6.6 6.4 - 8.3 gm/dL CERNER MILLENNIUM Albumin 4.6 3.2 - 5.2 gm/dL CERNER MILLENNIUM AST 18 0 - 30 unit/L CERNER MILLENNIUM ALT 21 0 - 30 unit/L CERNER MILLENNIUM Alk Phos 109(H) 40 - 104 unit/L CERNER MILLENNIUM Total Bilirubin 0.3 0.2 - 1.3 mg/dL CERNER MILLENNIUM Bili, Direct 0.1 0.0 - 0.3 mg/dL CERNER MILLENNIUM Estimated GFR >60 >=60 [...] internet browser. http://www.nkdep.nih.gov/lab-evaluation.shtml http://www.kidney.org/professionals/ Blood specimen (specimen) 01/28/2014 8:32 AM EDT 01/28/2014 12:07 PM EDT Narrative Resulting Agency Comment Spec In Lab Henrietta Null MD CHEMISTRY ORDERABLES [facility] * (ABNORMAL) Lipid panel (fasting) (01/28/2014 8:32 AM EDT) Chol, Total 260(H) <=199 mg/dL CERNER MILLENNIUM Comment: Recommendations of the NCEP Adult Treatment Panel for the following risk cutoff thresholds for the [place] population: Desirable: <200 mg/dL Borderline High: 200-239 mg/dL High: > or = 240 mg/dL Triglycerides 114 <=149 mg/dL CERNER MILLENNIUM Comment: Reference Range: Normal triglycerides: ??<150 mg/dL Borderline high: ??150-199 mg/dL High: ??200-499 mg/dL Very high: ??>yc=358 mg/dL THANIA 2001; 285(19):0125-2862 HDL 64 >=40 mg/dL JONYFLY BLUEIUM Comment: Reference range: ??Low HDL: ?? < 40 mg/dL ??Normal: ?40-60 mg/dL ??Desirable: > 60 mg/dL THANIA 2001; 285(19):7228-4030 LDL Cholesterol 173(H) <=99 mg/dL JONYFLY BLUEIUM Comment: Reference range: ?? Optimal: ?<100 mg/dL ?? Near Optimal/Above Optimal: ?? 100-129 mg/dL ?? Borderline high: ?130-159 mg/dL ?? High: ? 160-189 mg/dL ?? Very high: ?>sl=341 mg/dL THANIA 2001: 285(19):7597-0144 Chol/HDL Ratio 4.1 ratio KADEN hPan MICHAELMARTA Comment: A Cholesterol to HDL ratio below 4:1 is desirable. ??Studies suggest that increased CAD risk occurs at ratios above 5 for females and above 6 for men. ? [place] Heart Association ??(http://www.americanheart.org) ? Airam Int Med, 1994; 121:641 ? AM J Med, 1998; 105(1A):48S Blood specimen (specimen) 01/28/2014 8:32 AM EDT 01/28/2014 12:07 PM EDT Narrative Resulting Agency Comment Spec In Lab Henrietta Null MD CHEMISTRY ORDERABLES [facility] * VIT D Total Evaluation (01/28/2014 8:32 AM EDT) 25-OH Vit D Total 49 30 - 100 ng/mL JONYNER MILLENNIUM Comment: Deficient <10 ng/mL Insufficient 10 to 29 ng/mL Sufficient 30 to 100 ng/mL Potential Intoxication >100 ng/mL According to the US National Osteoporosis Foundation, Vitamin D concentrations >30 ng/mL are sufficient to protect bone health. ??The National Kidney Foundation has similarly stated that patients with Vitamin D concentrations <30ng/mL should be considered to be insufficient or deficient. http://www.kidney.org/professionals/KDOQI/guidelines_bone/Guide7.htm http://nof.org/files/nof/public/content/clinicalupdates/clinicalupdates/Issue2 5VitaminD/2012_VitaminD.html The IDS iSYS Vitamin D Immunoassay detects both 25-OH Vitamin D2 and 25-OH Vitamin D3, but only a total Vitamin D concentration is reported. Blood specimen (specimen) 01/28/2014 8:32 AM EDT 01/28/2014 12:07 PM EDT Narrative Resulting Agency Comment Spec In Lab Henrietta Null MD CHEMISTRY ORDERABLES Performing Organization Address City/[facility] Co de Phone Number [facility] * PTH (01/28/2014 8:32 AM EDT) PTH 53 15 - 65 pg/mL [facility] Blood specimen (specimen) 01/28/2014 8:32 AM EDT 01/28/2014 12:07 PM EDT Narrative Resulting Agency Comment Spec In Lab Henrietta Null MD CHEMISTRY ORDERABLES Performing Organization Address [facility] Co de Phone Number [facility] documented in this encounter Visit Diagnoses Diagnosis Trigeminal neuralgia- Primary Osteoporosis Osteoporosis, unspecified Screening for colon cancer Special screening for malignant neoplasms, colon Hyperlipidemia Other and unspecified hyperlipidemia documented in this encounter Care Teams Tip Banding Machine Operator Relationship Specialty Start Date End Date Henrietta Null MD [facility] [place] [address] PCP - General 12/20/10 05/08/20 documented as of this encounter
--- OUTSIDE RECORDS SUMMARY | 2024-04-23 12:17 | XMS_ITS | Encounter Summary ---
Author Organization [facility] [place] [address] Care Team Providers Care Solid Waste Technician Name Role Phone Henrietta Null MD Primary Care Provider [phone] Reason for Referral * Consultation (Routine) - Closed Specialty Diagnoses / Procedures Referred By Evelio mathis Referred To Contact Endocrinology Diagnoses Osteoporosis Procedures e-Consult to Endocrinology Henrietta Null MD [facility] [place] [address] [facility] [address] [place] [phone] Referral ID Status Reason Start Date Expiration Date Visits Re quested Visits Authorized [id number] Closed 02/06/2015 02/06/2016 3 3 Encounter Details Date Type Department Care Team (Late st Contact Info) Description 02/06/2015 Orders Only Internal Medicine at [address] [address] Henrietta Null MD [facility] [place] [address] Osteoporosis Social History Tobacco Use Types Packs/Day [...] 11:00 AM EDT Office Visit Cardiology at [address] [place] [phone] Lorena Lawrence MD [facility] [place] [address] documented as of this encounter Visit Diagnoses Diagnosis Osteoporosis Osteoporosis, unspecified documented in this encounter Care Teams Solid Waste Technician Relationship Specialty Start Date End Date Henrietta Null MD [facility] [address] [place] [address] [place] [address] PCP - General 12/20/10 05/08/20 documented as of this encounter
--- OUTSIDE RECORDS SUMMARY | 2024-04-23 12:17 | XMS_ITS | Encounter Summary ---
Author Organization [facility] [place] [address] Care Team Providers Care Reflow Operator Name Role Phone Henrietta Null MD Primary Care Provider Reason for Visit * Reason Onset Date Comments Other 12/31/2012 tinted windows Encounter Details Date Type Department Care Team (Late st Contact Info) Description 12/31/2012 Telephone Dermatology at [facility] [address] [place] [address] Cecilia Joshi MD [facility] [address] [place] [address] Other (tinted windows) Social History Tobacco Use Types Packs/Day Years [...] Miscellaneous Notes * Telephone Encounter - Bruna Huang - 12/31/2012 12:[address] Joshi patient Patient calling to see if doctor will write a letter about her being able to keep her tinted windows in the car. [place] has outlawed the tinted window shades in cars. Her car has them and she thinksit helps her from getting more spots. She can be reached at [phone] radha documented in this encounter Plan of Treatment Upcoming Encounters Date Type Department Care Team (Late st Contact Info) Description 07/07/2024 11:00 AM EDT Office Visit Cardiology at [address] [place] [phone] Lorena Lawrence MD [facility] [place] [address] documented as of this encounter Visit Diagnoses Not on filedocumented in this encounter Care Teams Reflow Operator Relationship Specialty Start Date End Date Henrietta Null MD [facility] [address] [address] PCP - General 12/20/10 05/08/20 documented as of this encounter
--- OUTSIDE RECORDS SUMMARY | 2024-04-23 12:17 | XMS_ITS | Encounter Summary ---
Author Organization [facility] [place] [place] [address] Care Team Providers Care Buying Intern Name Role Phone Henrietta Null MD Primary Care Provider [phone] Encounter Details Date Type Department Care Team (Late st Contact Info) Description 02/07/2015 E-Consult [place] [address] Dung Simpson MD [facility] [place] [address] Age related osteoporosis Social History Tobacco Use Types Packs/Day Years Used Date Smoking Tobacco: Never Smokeless Tobacco: Never Alcohol Use Standard Drinks/Week Comments No 0 (1 standard drink = 0.6 oz pur e alcohol) Sex and Gender Information Value Date Recorded Sex Assigned at Not on file Gender Identity Not on file Sexual Orientation Not on file documented as of this encounter Miscellaneous Notes * E-Consult - Dung Simpson MD - 02/07/2015 5:30 AM EDT Walter Shrestha, Looking at the DEXA scan, the bon density for the spine has stabilized and does not show the usual age related loss of bone, but the hip shows the usual age related loss of bone. Typocally the spine is more dynamic in its response to bisphosphonates , so I would say you are seeing a good response. However we are recommending that treatment be stopped after 5 years because there is concern that prolonged treatment leads to cessation of activity of both clasts and blasts (adynamic bone) with loss of remodeling and bone quality. The atypical femur fractures that have been reported in the past few years are believed to be the worst outcome of adynamic bone. Stopping a bisphosponate usually leads to no business change manager the first year but if bone loss accelerates at 2 years as measured with a dexascan we recommend re-instituting therapy. A bone turnover marker now would tell you if she is absorbing the bisphosphonate (if it is low) - Ithink the spine data tells you tht this is the case. I would consider stopping treatment if 5 years or more have passed. Rich This eConsult is focused on the specific clinical question(s) asked by the referring clinician, is based on the clinical data available to me, the consulting physician, at the time of the request, and is furnished without benefit of a comprehensive evaluation or physical examination of the patient by me. The guidance set forth in the eConsult note will need to be interpreted in light of any clinical issues not known to me or any changes in patient status that I may not be aware of at the time of filing this eConsult. If further consultation is necessary, an in-person visit with me or another member of our group is an option. documented in this encounter Plan of Treatment Upcoming Encounters Date Type Department Care Team (Late st Contact Info) Description 07/07/2024 11:00 AM EDT Office Visit Cardiology at [address] [place] [address] Lorena Lawrence MD [facility] [place] [address] documented as of this encounter Visit Diagnoses Diagnosis Age related osteoporosis Senile osteoporosis documented in this encounter Care Teams Buying Intern Relationship Specialty Start Date End Date Henrietta Null MD [facility] [address] [place] [address] PCP - General 12/20/10 05/08/20 documented as of this encounter
--- OUTSIDE RECORDS SUMMARY | 2024-04-23 12:17 | XMS_ITS | Encounter Summary ---
Author Organization [facility] [place] [address] Care Team Providers Care Convex Grinder Name Role Phone Henrietta Null MD Primary Care Provider [phone] Encounter Details Date Type Department Care Team (Late Contact Info) Description 05/08/2012 Telephone [place] [address] Bud Lozano MD [facility] [place] [address] Social History Tobacco Use Types Packs/Day Years [...] encounter Miscellaneous Notes * Telephone Encounter - Abigail Gonzalez RN - 05/08/2012 3:40 PM EDT Call received from patient, wrong number , pt needed to called back plastic surgery documented in this encounter Plan of Treatment Upcoming Encounters Date Type Department Care Team (Late st Contact Info) Description 07/07/2024 11:00 AM EDT Office Visit Cardiology at [address] [place] [address] Lorena Lawrence MD [facility] [place] [address] documented as of this encounter Visit Diagnoses Not on filedocumented in this encounter Care Teams Convex Grinder Relationship Specialty Start Date End Date Henrietta Null MD [facility] [address] [address] [place] [address] PCP - General 12/20/10 05/08/20 documented as of this encounter
--- OUTSIDE RECORDS SUMMARY | 2024-04-23 12:17 | XMS_ITS | Encounter Summary ---
Author Organization [facility] [address] Care Team Providers Care Author Name Role Phone Henrietta Null MD Primary Care Provider [phone] Reason for Visit * Reason Comments Cough Nasal Congestion Pharyngitis Fever Encounter Details Date Type Department Care Team (Late st Contact Info) Description 09/18/2012 11:00 AM EST Office Visit Internal Medicine at [address] [address] Maryam Crowe MD [facility] [place] [address] Chronic sinusitis (Primary Dx) Discharge Disposition: Home Social History [...] Sign Reading Time Taken Comments Blood Pressure 129/62 09/18/2012 11:00 AM EST Pulse 61 09/18/2012 11:00 AM EST Temperature 36.6 ??C (97.9 ??F) 09/18/2012 11:[address] Respiratory Rate - - Oxygen Saturation 98% 09/18/2012 11:00 AM EST Inhaled Oxygen Concentration - - Weight 54.4 kg (120 lb) 09/18/2012 11:00 AM EST Height - - Body Mass Index 24.24 04/22/2012 3:49 PM EDT documented in this encounter Patient Instructions * Patient Instructions* Maryam Crowe - 09/18/2012 11:31 AM EST Images from the original note were not included. Take tylenol and ibuprofen as needed for your symptoms. Use the antibiotic as prescribed. Try nasal irrigation with a tk pot to relieve congestion. Use the nasal decongestant but not for more than 3 days at a time, to relieve congestion. Return if you have fevers >101.1 that do not resolve with 1000mg of tylenol. [facility] Upper Respiratory Infection: After Your Visit to the Emergency Room Your Care Instructions You were seen in the emergency room for an upper respiratory infection (URI). This is an infection of the nose, sinuses, or throat. Viruses or bacteria can cause URIs. Colds, flu, and sinusitis are examples of URIs. These infections are spread by coughs, sneezes, and close contact with people who have a URI. Your doctor may have given you antibiotics to treat the infection if it was caused by bacteria. Butantibiotics will not help a viral infection. You can treat most infections with home care. This mayinclude drinking lots of fluids and taking kfur-suv-mscrcxi medicine for your symptoms. Even though you have been released from the emergency room, you still need to watch for any problems. The doctor carefully checked you. But sometimes problems can develop later. If you have new symptoms, or if your symptoms do not get better, return to the emergency room or call your doctor right away. A visit to the emergency room is only one step in your treatment. Even if you feel better, you still need to do what your doctor recommends, such as going to all suggested follow-up appointments and taking medicines exactly as directed. This will help you recover and help prevent future problems. How can you care for yourself at home? ?? To prevent dehydration, drink plenty of fluids, enough so that your urine is light yellow or clear like water. Choose water and other caffeine-free clear liquids until you feel better. If you havekidney, heart, or liver disease and have to limit fluids, talk with your doctor before you increasethe amount of fluids you drink. ?? Take acetaminophen (Tylenol) or ibuprofen (Advil, Motrin) for fever or pain. Read and follow allinstructions on the label. ?? If your doctor prescribed antibiotics, take them as directed. Do not stop taking them just because you feel better. You need to take the full course of antibiotics. ?? Take cough medicine and a decongestant if your doctor suggests it. ?? Get plenty of rest. ?? Use saline (saltwater) nasal washes to help keep your nasal passages open and wash out mucus andbacteria. You can buy saline nose drops at a grocery store or [employer]. Or you can make your own at home by mixing ?? teaspoon salt, 1 cup water (at room temperature), and ?? teaspoon baking soda. If you make your own, fill a bulb syringe with the solution, insert the tip into your nostril, and squ eeze gently. Blow your nose. ?? Use a vaporizer or humidifier to add moisture to the air in your bedroom. Follow the instructions for cleaning it. ?? Do not smoke or allow others to smoke around you. If you need help quitting, talk to your doctorabout stop-smoking programs and medicines. These can increase your chances of quitting for good. When should you call for help? Call 911 if: ?? You have severe trouble breathing. Return to the emergency room now if: ?? You have a fever with stiff neck or a severe headache. ?? You have signs of needing more fluids. You have sunken eyes, a dry mouth, and pass only a littledark urine. ?? You cannot keep down fluids or medicine. Call your doctor today if: ?? You have a deep cough and a lot of mucus. ?? You are too tired to eat or drink. ?? You have a new symptom, such as a sore throat, an earache, or a rash. Where can you learn more? Visit our health information library at [email or web address]. You can alsoview health information on [employer], your personal patient account. Log in or sign up today. Enter E757 in the search box to learn more about Upper Respiratory Infection: After Your Visit to the Emergency Room. ?? [id number] [employer]. Care instructions adapted under license by [facility]. This care instruction is for use with your licensed healthcare professional. If you have questions about a medical condition or this instruction, always ask your healthcare professional. [employer] disclaims any warranty or liability for your use of this information. Content Version: 9.1.416796; Last Revised: August 30, 2010 documented in this encounter Progress Notes * Sotero Bentley MD - 09/18/2012 11:35 AM EST The case was discussed at the time of the visit or immediately after the visit. The assessment and plan were formulated in discussion with me and I agree with them as documented. I have reviewed the history, physical exam, assessment and plan with the resident. Major issues discussed today: Pt reports having cold type sxs for >1 mth. Started with nasal congestion, sore throat. Not sleeping well because of congestion. Occasional cough. States had temp this morning. Decreased appetite.Took mucinex, nasal spray without help. Seen on Jul and took z-sobia. Plan: -Given duration of sxs will treat with augmentin x 7 days -neti pot F/u prn * Maryam Crowe - 09/18/2012 11:17 AM EST Acute Visit: CC: 67 y/o F with URI symptoms for 1 month. Since two weeks before Thanksgiving, has sinus BRAGA, sore throat, difficulty breathing. Everyone is sick around me. 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 Has been keeping up with her work. Sleeping is worse dueto congestion. No GI or urinary issues. Drinks water all day long. No issues with breathing aside from congestion. Occasional cough. This getting better. +post nasal drip. No thick secretions. Temp this am 104.3 degrees. Not been having temp all along. Took some aspirin. Feeling worse today,like getting worse again. Appetite down, mostly drinking soup. Tried mucinex, dayquil. Tried saline nasal spray. No antihistamine tried . Has tried sudafed but this did not help. From 08/21/12 Visit Plan: Azithromycin 250 mg tablets. Take 2 tablets [...] (plain) one daily as needed for congestion Patient Active Problem List Diagnoses Code ??? Ovarian fibroma 220 ??? Osteoporosis 733.00 ??? Trigeminal neuralgia 350.1 ??? Preventative health care V70.0 ??? Trigger fingers, left thumb and ring, right ring 727.03 ??? Nevus, atypical - foot 216.9 ??? Skin lesion of hand 709.9 ??? Other specified aftercare following surgery V58.49 Current Outpatient Prescriptions Medication Sig Dispense Refill ??? benzonatate (TESSALON) 100 mg capsule Take 1 capsule by mouth 3 times daily as needed for Cough. 30 tablet 0 ??? CALCIUM LACTATE ORAL Take by [...] cyanocobalamin (VITAMIN B-12) 1,000 mcg tablet ??? oxymetazoline (NASAL DECONGESTANT, OXYMETAZL,) 0.05 % nasal spray 2 sprays by Nasal route 2 times daily for 3 days. 30 mL 0 ??? amoxicillin-clavulanate (AUGMENTIN) 875-125 mg per tablet Take 1 tablet by mouth 2 times daily for 7 days. 20 tablet 0 BP 129/62 Pulse 61 Temp(Src) 36.6 ??C (97.9 ??F) (Oral) Wt 54.432 kg (120 lb) SpO2 98% Physical Exam: Gen: Awake, alert, oriented, no distress, mildly ill appearing elderly white female. HEENT: No head trauma noted, no scleral icterus, +small shotty LAD b/l cervical region, MM pink andmoist CV: Regular rate and rhythm, S1/S2 normal, no extra sounds noted. Pulm: Clear to auscultation bilaterally, no crackles or wheezing. Abdominal: BS+, non-distended, non-tender, no masses noted. Extremities: Warm, posterior tibial, dorsalis pedis pulses 2+ bilaterally. Neuro: Normal speech, moving all extremities equally. A/P: 67 y/o F with chronic sinusitis, previously treated with azithromycin. Patient has been treated at this point for pertussis so that is not a current concern. However, as she has continued symptoms and may have bacterial infection not covered by previous treatment course, and as she reported a high fever this am, we will treat with Augmentin for 7 days. Patient will return if not improving with second course, and may require imaging at that time to investigate for fungal or ethmoidal sinusitis. -Take tylenol and ibuprofen as needed for your symptoms. -Use the antibiotic as prescribed. Augmentin 875-125mg for 7 days -Try nasal irrigation with a tk pot to relieve congestion. -Use the nasal decongestant Afrin but not for more than 3 days at a time, to relieve congestion. -Return if you have fevers >101.1 that do not resolve with 1000mg of tylenol. Maryam Crowe Internal Medicine, PGY-2 Pager [phone] documented in this encounter Plan of Treatment Upcoming Encounters Date Type Department Care Team (Late st Contact Info) Description 07/07/2024 11:00 AM EDT Office Visit Cardiology at [address] [place] [address] Lorena Lawrence MD [facility] [place] [address] documented as of this encounter Visit Diagnoses Diagnosis Chronic sinusitis- Primary Unspecified sinusitis (chronic) documented in this encounter Care Teams Author Relationship Specialty Start Date End Date Henrietta Null MD [facility] [address] PCP - General 12/20/10 05/08/20 documented as of this encounter
--- OUTSIDE RECORDS SUMMARY | 2024-04-23 12:17 | XMS_ITS | Encounter Summary ---
Author Organization [facility] [place] [address] Care Team Providers Care Laundry Assistant Name Role Phone Heniretta Null MD Primary Care Provider [phone] Reason for Visit * Reason Onset Date Comments Medication Refill 01/27/2015 Encounter Details Date Type Department Care Team (Late Contact Info) Description 01/27/2015 Refill Internal Medicine at [address] [address] Marlene Mancini Osteoporosis Social History Tobacco Use Types Packs/Day [...] encounter Miscellaneous Notes * Telephone Encounter - Marlene Mancini - 01/27/2015 1:09 PM EDT Pt called very concerned because she is supposed to take Boniva on 01/29 and she doesn't have it. Please call in, if appropriate. documented in this encounter Plan of Treatment Upcoming Encounters Date Type Department Care Team (Late Contact Info) Description 07/07/2024 11:00 AM EDT Office Visit Cardiology at [address] [address] Lorena Lawrence MD [facility] [place] [address] documented as of this encounter Visit Diagnoses Diagnosis Osteoporosis Osteoporosis, unspecified documented in this encounter Care Teams Laundry Assistant Relationship Specialty Start Date End Date Henrietta Null MD [facility] [address] [place] [address] PCP - General 12/20/10 05/08/20 documented as of this encounter
--- OUTSIDE RECORDS SUMMARY | 2024-04-23 12:17 | XMS_ITS | Encounter Summary ---
Author Organization [facility] [place] [address] Care Team Providers Care Line Construction Supervisor Name Role Phone Henrietta Null MD Primary Care Provider Encounter Details Date Type Department Care Team (Late st Contact Info) Description 03/21/2014 10:45 AM EDT - 03/21/2014 11:30 AM EDT [place] [address] Yareli Workman MD [facility] DR GASTROENTEROLOGY [place] [address] COLONOSCOPY, POLYPECTOMY, REMOVAL LESION BY SNARE (WRVU 4.57) Social History Tobacco Use Types Packs/Day Years [...] occurs please contact your M.D. Please call [phone] before 5 pm with problems, questions or concerns. After 5pm call [phone] and ask to speak with the cardroom supervisor senior manager asset protection. Discharge instructions reviewed with patient who expresses understanding. * Patient Instructions* Yareli Workman MD - 03/21/2014 10:59 AM EDT Please see Recommendations in the Provation procedure report which is documented in the procedural note in E-DH. * Attachments The following attachments cannot be sent through Care Everywhere. * COLONOSCOPY : POSTOP (ESTONIAN) documented in this encounter Medications at Time [...] of this encounter H&P Notes * Yareli Workman MD - 03/21/2014 10:06 AM EDT Gastroenterology [...] encounter Miscellaneous Notes * Miscellaneous - Provider, Scanning - 03/21/2014 9:38 PM EDT * Miscellaneous - Provider, Scanning - 03/21/2014 1:51 PM EDT * Op Note - Yareli Workman MD - 03/21/2014 10:58 AM EDT [facility] Operative Note Patient Name: Heike Ramires : [id number] MR#: [id number] Case Date: 03/21/2014 Surgeon: Surgeon(s) and Role: * Yareli Workman MD - Primary Preoperative diagnosis: screening last colo 03/23/09 Full procedure note is documented under the Procedure section of eDH. documented in this encounter Plan of Treatment Upcoming Encounters Date Type Department Care Team (Late st Contact Info) Description 07/07/2024 11:00 AM EDT Office Visit Cardiology at [address] [place] [address] Lorena Lawrence MD [facility] [place] [address] documented as of this encounter Procedures Procedure [...] 10:59 AM EDT) FINAL DIAGNOSIS (AP) ? [facility] ? Provider: ?? YARELI WORKMAN ?Pt. Name: ?? HEIKE RAMIRES ? Acc #: ?[id number] ?Pt. ? Col Date: ?? 03/21/2014 ? [...] Diagnosis: ? Same 03/22/2014 8:59 AM EDT [facility] 03/21/2014 10:5 9 AM EDT Yareli Workman MD PATHOLOGY/CYTOLOGY O RDERABLES Performing Organization Address [facility]/State/ZIP Co de Phone Number [facility] [place] [address] * Specimen to Pathology (surgical or derm) (03/21/2014 10:59 AM EDT) AP Specimen 03/21/2014 10:5 9 AM EDT 03/21/2014 10:59 AM EDT Narrative EFFIE BLUEIUM - 03/21/2014 10:59 AM EDT Specimen requisition ordered. ??Separate Pathology report to follow Yareli Workman MD PATHOLOGY/CYTOLOGY O BRYAN EFFIE SEBASTIAN * COLONOSCOPY (03/21/2014 10:10 AM EDT) COLONOSCOPY [facility] Endoscopy Patient Name: Heike Ramires ? Procedure Date: 03/21/2014 10:10 AM ? Date of : 1945 ? Age: 69 ? Order #: [id number] ? Procedure: ? Colonoscopy Indications: ? Screening in patient at increased ? risk: Colorectal cancer in two ? sisters, possibly before age 60 (pt ? notes 50s or 60s for both) Patient Profile: ? s/p ovarian fibroma, trigeminal ? neuralgia Providers: ? Yareli Workman MD, Marsha Ryan ? TUSHAR Sheets, Nicholas Kenny, ? Fudge Candy Maker Referring : ?Henrietta Null MD Medicines: ? Midazolam 3.5 [...] to primary care physician. ? _ Yareli Workman MD 03/21/2014 11:03 AM This report has been signed electronically. Number of Addenda: 0 Note Initiated On: 03/21/2014 10:10 AM PROVATION 03/21/2014 10:1 0 AM EDT Henrietta Null MD GENERAL SURGICAL ORD ERABLES PROVATION documented in this encounter Visit Diagnoses Not on filedocumented in this encounter Administered Medications Inactive Administered Medications - up to 3 most recent administrations Medication Order MAR Action Action Date Dose Rate Site fentaNYL 50mcg/mL injection ONCE PRN, Starting on Fri03/21/14 at 1024, Until Fri03/21/14 at 1127, Pain, Intra-Operative (Intra-Procedure), Routine Given 03/21/2014 10:41 AM EDT 25 mcg Given 03/21/2014 10:35 AM EDT 25 mcg Given 03/21/2014 10:32 AM EDT 25 mcg midazolam (PF) (VERSED) 1 mg/mL injection ONCE PRN, Starting on Fri03/21/14 at 1024, Until Fri03/21/14 at 1127, Sleep, Intra-Operative (Intra-Procedure), Routine Given 03/21/2014 10:46 AM E DT 0.5 mg Given 03/21/2014 10:35 AM EDT 0.5 mg Given 03/21/2014 10:32 AM EDT 0.5 mg documented in this encounter Active and [...] RN) documented in this encounter Care Teams Line Construction Supervisor Relationship Specialty Start Date End Date Henrietta Null MD [facility] [address] [place] [address] PCP - General 12/20/10 05/08/20 documented as of this encounter
--- OUTSIDE RECORDS SUMMARY | 2024-04-23 12:17 | XMS_ITS | Encounter Summary ---
Author Organization [facility] [place] [address] Care Team Providers Care Vegetable Preparer Name Role Phone Henrietta Null MD Primary Care Provider [phone] Encounter Details Date Type Department Care Team (Latest Contact Info) Description 02/06/2015 7:39 AM EDT - 02/06/2015 11:59 PM EDT Hospital [place] [phone] CLINIC, Henrietta Cordon MD [facility] [address] [place] [address] Screening for breast cancer Discharge Disposition: Home Social [...] mouth daily. 01/10/2012 fluticasone (FLONASE) 50 mcg/actuation Donnelly, SuspensionIndications:C ough, persistent 2 sprays by Each Nare route daily. 16 g 11 01/27/2015 01/27/2016 TEGRETOL 200 mg TabletIndications:Trige shreyas neuralgia Take 0.5 tablets by mouth 2 times daily. 60 tablet 5 01/27/2015 05/26/2015 albuterol (PROVENTIL HFA;VENTOLIN HFA;PROAIR) 90 mcg/actuation HFA Aerosol InhalerIndications:Coug h, persistent Inhale 2 puffs into the lungs every 4 hours as needed for Wheezing. 1 Inhaler 1 01/27/2015 11/18/2017 BONIVA 150 mg TabletIndications:Osteo porosis Take 1 tablet by mouth every 30 days. Per patient request - Brand name only 4 tablet 3 11/09/2014 02/17/2015 cyanocobalamin (VITAMIN B-12) 1,000 mcg tablet 12/20/201006/01 documented as of this encounter Plan of Treatment Upcoming Encounters Date Type Department Care Team (Late st Contact Info) Description 07/07/2024 11:00 AM EDT Office Visit Cardiology at [address] [place] [address] Lorena Lawrence MD [facility] [place] [address] documented as of this encounter Procedures Procedure Name Priority Date/Time Associated Diagnosis Comments MAMMO 2D DIGITAL SCREEN RENAN BILATERAL Routine 02/06/2015 8:50 AM EDT documented in this encounter Results * Mammography Screen Renan 2D Bilateral (02/06/2015 8:50 AM EDT) Anatomical Region Laterality Modality Breast Bilateral Mammography 02/06/2015 8:50 AM EDT Narrative 02/07/2015 11:57 AM EDT Reason for Exam: Screening ?? Technique: Craniocaudal (CC) and Medio-lateral Oblique (MLO) views of both breasts obtained with direct digital capture. In addition to routine 2-D imaging, this exam was also performed with 3-D Tomographic Imaging (MLO and CC). ?? The exam was evaluated by CAD version 8.3.17. ?? Findings: ?? This is a negative mammogram (ACR Category 1). There is a stable fibroglandular pattern without significant change from prior studies. There is no mammographic evidence of cancer. The breasts are heterogeneously dense which limits mammographic sensitivity for the detection of malignancy. ?? CONCLUSION: This is a NEGATIVE mammogram (ACR Category 1). ?? Routine screening mammography is recommended with the frequency dependent upon the patients age and breast cancer risk factors. A letter has been sent to this patient by the breast imaging center. ?? Procedure Note Suzan Peraza MD - 02/07/2015 Reason for Exam: Screening Technique: Craniocaudal (CC) and Medio-lateral Oblique (MLO) views of both breasts obtained with direct digital capture. In addition to routine 2-D imaging, this exam was also performed with 3-D Tomographic Imaging (MLOand CC). The exam was evaluated by CAD version 8.3.17. Findings: This is a negative mammogram (ACR Category 1). There is a stablefibroglandular pattern without significant change from prior studies. There is no mammographic evidence of cancer. The breasts areheterogeneously dense which limits mammographic sensitivity for the detection ofmalignancy. CONCLUSION: This is a NEGATIVE mammogram (ACR Category 1). Routine screening mammography is recommended with the frequency dependentupon the patients age and breast cancer risk factors. A letter has been sent to this patient by the breast imaging center. Henrietta Null MD IMG MAMMO ORDERABLES documented in this encounter Visit Diagnoses Diagnosis Screening for breast cancer Breast screening, unspecified documented in this encounter Care Teams Vegetable Preparer Relationship Specialty Start Date End Date Henrietta Null MD [facility] [place] [address] PCP - General 12/20/10 05/08/20 documented as of this encounter
--- OUTSIDE RECORDS SUMMARY | 2024-04-23 12:17 | XMS_ITS | Encounter Summary ---
Author Organization Formerly [facility] [place] [address] Care Team Providers Care Medical Records Specialist Name Role Phone Henrietta Null MD Primary Care Provider [phone] Reason for Visit * Reason Onset Date Comments Other 04/07/2015 Needing labs dra tolliver prior to next appointment Encounter Details Date Type Department Care Team (Late st Contact Info) Description 04/07/2015 [place] [phone] Vani Mobley RN Other (Needing labs drawn prior to next appointment) Social History Tobacco Use Types Packs/Day Years [...] Telephone Encounter - Vani Mobley RN - 04/07/2015 9:47 AM EDT ABIMAEL Burroughs - Message left on identifiable voicemail - Requested that patient arrive an hour early for her appointment on Friday to have labs drawn before seeing Dr Kenny. Patient to call if any questions. * Telephone Encounter - Vani Mobley RN - 04/07/2015 9:45 AM EDT ----- Message from Orestes Kenny MD sent at 04/06/2015 1:41 PM EDT ----- Regarding: Labs Before Visit Friday Vani, Can you ask her to come in an hour before her appointment with me on Friday to have her labs drawn? Thanks, Orestes documented in this encounter Plan of Treatment Upcoming Encounters Date Type Department Care Team (Late st Contact Info) Description 07/07/2024 11:00 AM EDT Office Visit Cardiology at [address] [address] Lorena Lawrence MD [facility] [place] [address] documented as of this encounter Visit Diagnoses Not on filedocumented in this encounter Care Teams Medical Records Specialist Relationship Specialty Start Date End Date Henrietta Null MD [facility] [place] [address] PCP - General 12/20/10 05/08/20 documented as of this encounter
--- OUTSIDE RECORDS SUMMARY | 2024-04-23 12:17 | XMS_ITS | Encounter Summary ---
Author Organization [facility] [place] [address] Care Team Providers Care Training Representative Name Role Phone Henrietta Null MD Primary Care Provider [phone] Encounter Details Date Type Department Care Team (Latest Contact Info) Description 01/28/2014 7:40 AM EDT Laboratory Appointment Internal Medicine at [address] [id number] CLINIC, Henrietta Cordon MD [facility] GENER[facility] INTERNAL [facility] [place] [address] Osteoporosis; Hyperlipidemia Discharge Disposition: Home Social History Tobacco [...] AM EDT Office Visit Cardiology at [address] [phone] Lorena Lawrence MD [facility] [place] [address] documented as of this encounter Procedures Procedure Name Priority Date/Time Associated Diagnosis Comments PTH Routine 01/28/2014 8:32 AM EDT Osteoporosis CMP W/FASTING GLUCOSE Routine 01/28/2014 8:32 AM EDT Hyperlipidemia VITAMIN D, 25-HYDROXY Routine 01/28/2014 8:32 AM EDT Osteoporosis LIPID PANEL (REFLEX DIRECT LDL) Routine 01/28/2014 8:32 AM EDT Hyperlipidemia documented in this encounter Results * (ABNORMAL) CMP w/fasting Glucose (01/28/2014 8:32 AM EDT) [facility] Glucose Fasting 91 65 - 99 mg/dL [...] of Diabetes Mellitus, Position Statement from the [place] Diabetes Association. ??Diabetes Care, Volume 33, Supplement 1, Sep 2009 BUN 8 8 - 18 mg/dL CERNER MILLENNIUM Creatinine 0.64(L) 0.70 - 1.20 mg/dL CERNER MILLENNIUM Comment: Please note that the pediatric reference intervals supplied above were not validated at [facility]. Results from pediatric patients should be interpreted [...] In Lab Henrietta Null MD CHEMISTRY ORDERABLES CERFLY BLUEIUM * (ABNORMAL) Lipid panel (fasting) (01/28/2014 8:32 AM EDT) Chol, Total 260(H) <=199 mg/dL CERNER MILLENNIUM Comment: Recommendations of the NCEP Adult Treatment Panel for the following risk cutoff thresholds for the [place] population: Desirable: <200 mg/dL Borderline High: 200-239 mg/dL High: > or = 240 mg/dL Triglycerides 114 <=149 mg/dL [facility] Comment: Reference Range: Normal triglycerides: ??<150 mg/dL Borderline high: ??150-199 mg/dL High: ??200-499 mg/dL Very high: ??>xh=621 mg/dL THANIA 2001; 285(19):2881-2135 HDL 64 >=40 mg/dL EFFIE [facility] Comment: Reference range: ??Low HDL: ?? < 40 mg/dL ??Normal: ?40-60 mg/dL ??Desirable: > 60 mg/dL THANIA 2001; 285(19):2235-7815 LDL Cholesterol 173(H) <=99 mg/dL EFFIE [facility] Comment: Reference range: ?? Optimal: ?<100 mg/dL ?? Near Optimal/Above Optimal: ?? 100-129 mg/dL ?? Borderline high: ?130-159 mg/dL ?? High: ? 160-189 mg/dL ?? Very high: ?>zf=618 mg/dL THANIA 2001: 285(19):4964-9293 Chol/HDL Ratio 4.1 ratio KADEN SEBASTIAN Comment: A Cholesterol to HDL ratio below 4:1 is desirable. ??Studies suggest that increased CAD risk occurs at ratios above 5 for females and above 6 for men. ? [place] Heart Association ??(http://www.americanheart.org) ? Airam Int Med, 1994; 121:641 ? AM J Med, 1998; 105(1A):48S Blood specimen (specimen) 01/28/2014 8:32 AM EDT 01/28/2014 12:07 PM EDT Narrative Resulting Agency Comment Spec In Lab Henrietta Null MD CHEMISTRY ORDERABLES [facility] * VIT D Total Evaluation (01/28/2014 8:32 AM EDT) 25-OH Vit D Total 49 30 - 100 ng/mL [facility] Comment: Deficient <10 ng/mL Insufficient 10 [...] Null MD CHEMISTRY ORDERABLES Performing Organization Address [facility] Phone Number [facility] * PTH (01/28/2014 8:32 AM EDT) PTH 53 15 - 65 pg/mL [facility] Blood specimen (specimen) 01/28/2014 8:32 AM EDT 01/28/2014 12:07 PM EDT Narrative Resulting Agency Comment Spec In Lab Henrietta Null MD CHEMISTRY ORDERABLES Performing Organization Address [facility] de Phone Number [facility] documented in this encounter Visit Diagnoses Diagnosis Osteoporosis Osteoporosis, unspecified Hyperlipidemia Other and unspecified hyperlipidemia documented in this encounter Care Teams Training Representative Relationship Specialty Start Date End Date Henrietta Null MD [facility] [place] [address] PCP - General 12/20/10 05/08/20 documented as of this encounter
--- OUTSIDE RECORDS SUMMARY | 2024-04-23 12:17 | XMS_ITS | Encounter Summary ---
Author Organization [facility] [place] [address] Care Team Providers Care It Risk Advisor Name Role Phone Henrietta Null MD Primary Care Provider [phone] Reason for Visit * Reason Comments Skin Check Encounter Details Date Type Department Care Team (Late st Contact Info) Description 02/03/2013 2:00 PM EDT Follow-Up Dermatology at [facility] [address] [place] [address] Cecilia Mercado MD [facility] [place] [address] Neoplasm of unspecified nature of bone, soft tissue, and skin (Primary Dx); History of dysplastic nevus Discharge [...] as of this encounter Progress Notes * Efraín Rogers III, MD - 02/03/2013 3:12 PM EDT I was the supervising physician working with dermatology resident Dr. Cecilia Mercado in the dermatology clinic during this patient visit. The level of Resident supervision for this patient visit was indirect supervision with direct supervision immediately available. (definition: [facility] GME Policy Statement on Graduate Medical Education, Supervision of Graduate Medical Trainees) I was immediately available to Dr. Mercado for questions and discussion regarding this visit. I have reviewed her encounter note details and level of service. * Cecilia Mercado MD - 02/03/2013 1:19 PM EDT DERMATOLOGY - ESTABLISHED PATIENT FOLLOW-UP Date of service: 02/03/2013 Heike Ramires : 1945 Dermatology Resident Note: Cecilia Mercado MD Chief Complaint Patient presents with ??? Skin Check This is an established patient, last seen by myself on 08/04/12. HPI: Heike Ramires presents for full skin [...] plane of sections examined. Excised by Dr. Mercado 02/2012 D - Skin, left green, shave biopsy: Compound nevus with moderate to severe atypia, margins appear negative in the plane of sections examined. Excised by Dr. Mercado 02/2012 E - Skin, left dorsal foot, shave biopsy: Severely atypical lentiginous and nested junctional melanocytic proliferation in sun-damaged skin, the edges of the specimen are free of lesion in the planes of section examined, (see Comment). Excised by Dr. Sánchez 04/2012 Medical History: Past Medical History Diagnosis Date ??? Dysplastic nevus Medications: Current Outpatient Prescriptions on File Prior to Visit Medication Sig Dispense Refill ??? fluticasone (FLONASE) 50 mcg/actuation nasal spray 2 sprays by Each Nare route daily. 16 g 11 ??? 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 Specific skin findings: 1. 6mm brown papule with milia like cysts; however darkening with time right upper back 2. Well healed scars as above Diagnosis/Assessment/Treatment Plan: 1. Skin neoplasm, right upper back: favor seborrheic keratosis, however, due to darkening in color,discussed shave biopsy for definitive diagnosis and to rule out atypical nevus or MM. The patient agreed to the procedure after discussing risks/benefits/alternatives. Procedure: Skin biopsy. Location: Right upper back Discussed indications for procedure and expectations including risks and benefits. Verbal consent obtained. Skin prep with alcohol. Local anesthesia with 1% xylocaine, 1/100,000 epinephrine, 0.1 mEq/mL bicarbonate. A sample of the lesion was removed by shave technique to the level of the dermis andsubmitted to Pathology. Hemostasis obtained (AlCl and/or electrocautery). There were no complications; the pt. tolerated the procedure well. The wound was dressed. Post-procedure expectations, wound care and activity restrictions were reviewed. Follow-up based on pathology results. 2. History of dysplastic nevi: no evidence of recurrence. Continue to emphasize sun protection. RTC pending biopsy results, otherwise 12 months (sooner PRN). Instructed to call for questions/concerns. Note initiated by Chai Galo LPN I am documenting this encounter acting as the scribe for and in the presence of Dr. Mercado Reviewed and signed by Cecilia Mercado MD Resident in Dermatology [facility] Staff bell tier: Efraín Rogers MD Section of Dermatology [facility] documented in this encounter Plan of Treatment Upcoming Encounters Date Type Department Care Team (Late st Contact Info) Description 07/07/2024 11:00 AM EDT Office Visit Cardiology at [address] [place] [address] Lorena Lawrence MD [facility] [place] [address] documented as of this encounter Procedures Procedure Name Priority Date/Time Associated Diagnosis Comments SURGICAL PATHOLOGY REPORT Routine 02/03/2013 3:57 PM EDT SPECIMEN TO PATHOLOGY (NON-OR) Routine 02/03/2013 1:52 PM EDT Neoplasm of unspecified nature of bone, soft tissue, and skin documented in this encounter Results * Surgical Pathology Report (02/03/2013 3:57 PM EDT) Surgical Pathology Report ? [facility] ? Provider: ?? CECILIA MERCADO ? Pt. Name: ?? HEIKE RAMIRES ? Acc #: ?[id number] ? Pt. ? Col Date: ?? 02/03/2013 ?/Sex: ?1945,(68 years),Female ? Rec Date: ?? 02/03/2013 ?LOC: ?[facility] ? SURGICAL PATHOLOGY ? ---Pathologic Diagnosis--- ? Skin, right upper back, shave biopsy: ?Seborrheic keratosis. ? CR-0 ? Dictated by: ??Hillary Souza MD ? Dermatopathology Fellow ? As the attending physician, I attest that I examined the histologic slides, ? and confirm Dr. Hillary Souza's diagnosis. ? 02/04/13 ? VMS ? 02/04/13 Verified by: ? Jose Daniel Bell MD ? Dermatopathologist ? (Electronic Signature) ? The attending pathologist whose signature appears on this report has ? reviewed all diagnostic slides and has edited the gross and/or ? microscopic portion of the report in rendering the final pathologic ? diagnosis. ? ---Gross Description--- ? A- Labeled/Fixative: Labeled with the patient's name, formalin. ? Quantity/Size: ? Single shave, 0.7 x 0.6 x 0.1 cm. ? Tissue Description: ??Castano skin with a 0.6 cm brown papule. ? Sections/Processing: Inked and trisected. (T1) ??sns ? ---Clinical Information--- ? Specimen Submitted: ? A - Skin, right upper back, shave biopsy (1) ? Clinical History: ? 6 mm brown papule with milia-like cysts, however, darkening with time ? Clinical Diagnosis: ? Seborrheic keratosis, rule out atypical nevus EFFIE MICHAELMARTA 02/03/2013 3:57 PM EDT Cecilia Mercado MD PATHOLOGY/CYTOLOGY O RDERABLES EFFIE SEBASTIAN * Specimen to Pathology (NON-OR) (02/03/2013 1:52 PM EDT) AP Specimen 02/03/2013 1:52 PM EDT 02/03/2013 1:52 PM EDT Narrative CERNER MILLENNIUM - 02/03/2013 1:52 PM EDT Specimen requisition ordered. ??Separate Pathology report to follow Efraín Rogers III, MD PATHOLOGY/CYTOL OGY ORDERABLES EFFIE SEBASTIAN documented in this encounter Visit Diagnoses Diagnosis Neoplasm of unspecified nature of bone, soft tissue, and skin- Primary History of dysplastic nevus Personal history of diseases of skin and subcutaneous tissue documented in this encounter Care Teams It Risk Advisor Relationship Specialty Start Date End Date Henrietta Null MD [facility] [place] [address] PCP - General 12/20/10 05/08/20 documented as of this encounter
--- OUTSIDE RECORDS SUMMARY | 2024-04-23 12:17 | XMS_ITS | Encounter Summary ---
Author Organization [facility] Address [facility] [place] [address] Care Team Providers Care Financial Center Manager Name Role Phone Henrietta Null MD Primary Care Provider [phone] Encounter Details Date Type Department Care Team (Latest Contact Info) Description 01/14/2014 7:40 AM EDT - 01/14/2014 11:59 PM EDT Hospital En[place] [phone] CLINIC, Henrietta Cordon MD [facility] [address] [address] Discharge Disposition: Home Social History Tobacco Use [...] AM EDT Office Visit Cardiology at [address] [place] [address] Lorena Lawrence MD [facility] [place] [address] documented as of this encounter Procedures Procedure Name Priority Date/Time Associated Diagnosis Comments MAMMO SCREENING CAD BILATERAL Routine 01/14/2014 8:10 AM EDT documented in this encounter Results * Mammo digital bilateral Screening with CAD (01/14/2014 8:10 AM EDT) Anatomical Region Laterality Modality Breast Bilateral Mammography 01/14/2014 8:10 AM EDT Narrative 01/17/2014 10:29 AM EDT Reason for Exam: Screening ?? Technique: Craniocaudal (CC) and Medio-lateral Oblique (MLO) views of both breasts obtained with direct digital capture. ?? The exam was evaluated by CAD version 8.3.17. ?? Findings: ?? This is a negative mammogram (ACR Category 1). There is a stable fibroglandular pattern without significant change from prior studies. There is no mammographic evidence of cancer. The breasts are of scattered density. ?? CONCLUSION: This is a NEGATIVE mammogram (ACR Category 1). ?? Routine screening mammography is recommended with the frequency dependent upon the patients age and breast cancer risk factors. ?? A letter has been sent to this patient by the breast imaging center. Procedure Note Trent Soria MD - 01/17/2014 Reason for Exam: Screening Technique: Craniocaudal (CC) [...] on filedocumented in this encounter Care Teams Financial Center Manager Relationship Specialty Start Date End Date Henrietta Null MD [facility] [place] [address] PCP - General 12/20/10 05/08/20 documented as of this encounter
--- OUTSIDE RECORDS SUMMARY | 2024-04-23 12:17 | XMS_ITS | Encounter Summary ---
Author Organization [facility] [place] [address] Care Team Providers Care Mail Handler Assistant Name Role Phone Henrietta Null MD Primary Care Provider [phone] Reason for Visit * Reason Comments Osteoporosis Encounter Details Date Type Department Care Team (Late st Contact Info) Description 04/10/2015 1:30 PM EDT Office [place] [address] Dung Simpson MD [facility] [place] [address] Osteoporosis Discharge Disposition: Home Social History Tobacco [...] Sign Reading Time Taken Comments Blood Pressure 139/75 04/10/2015 12:43 PM EDT Pulse 58 04/10/2015 12:43 PM EDT Temperature - - Respiratory Rate - - Oxygen Saturation - - Inhaled Oxygen Concentration - - Weight 53.6 kg (118 lb 3.2 oz) 04/10/2015 12:43 PM EDT Height 149.4 cm (4' 10.82) 04/10/2015 12:43 PM EDT Body Mass Index 24.02 04/10/2015 12:43 PM EDT documented in this encounter Patient Instructions * Patient Instructions* Orestes Kenny MD - 04/10/2015 1:28 PM EDT Calcium and vitamin D recommendations: - Continue vitamin D 400 IU two to three times daily - Decrease calcium to 500 mg two to three times daily documented in this encounter Progress Notes * Dung Simpson MD - 04/11/2015 5:43 PM EDT I saw this patient with Dr Kenny . I reviewed the [place] portions of the history and physical exam, and reviewed pertinent lab data. I answered all patient questions. I was involved in all medicaldecision making and agree with this plan. * Orestes Kenny MD - 04/10/2015 11:14 AM EDT Endocrinology Consult Note Reason for Visit: Consult requested by Henrietta Null MD for evaluation of osteoporosis HPI: The patient is a 70-y/o lady with a PMH significant for osteoporosis who was been on carbamazepine therapy for many years who presents in consultation for this condition. She was diagnosed with osteoporosis about six years ago and was started on calcium, vitamin D, and bisphophonate therapy. This was attributed to osteoporosis from carbamazepine for trigeminal neuralgia. She broke a finger many years ago and has never had any other fractures. Her height has decreased by over an inch, and she occassionally has back pains. She has never had kidney stones. She went through menopause in her mid-40s. PMH: - Trigeminal neuralgia - Osteoporosis - Seasonal allergies Medications: - List reviewed and accurate FH: - No known osteoporosis or fractures SH: - No tobacco - No EtOH ROS: - 10-point ROS performed and negative, except as above PE: - Vitals: 139/75, 58, BMI 24.1 - Gen: Awake and alert, NAD - HEENT: PERRL, moist MM - Neck: No thyromegaly - CV: RRR, no M/C/R - Pulm: CTAB - Abd: +BS, NTTP - Ext: No edema - Derm: No rashes - Neuro: 2+ reflexes, no tremor Labs: - BMP (01/27/2015) WNL - 25-OH vitamin D (04/10/2015) pending Imaging: - DEXA (02/06/2015) - Total lumbar spine -3.0 (unchanged from two years ago) - Femoral neck -2.4 (decrease in total neck from two years ago) Assessment: The patient is a 70-y/o lady with a PMH significant for osteoporosis who was been on carbamazepine therapy for many years who presents in consultation for this condition. Her osteoporosisis likely due, in part, to rapid vitamin D metabolism from her carbamazepine. However, her normal 25-OH vitamin D levels over the past two years suggest that this is not a major ongoing contributor. She has no evidence of any secondary causes of osteoporosis, though a full evaluation has not been performed. Her BMD being lower at the spine raises the possibility of multiple myeloma, and she has also never been assessed for hypercalciuria. The cause and significance of her ongoing BMD decline isunclear. It is possible that she is not absorbing her bisphosphonate therapy well, leading to the loss in her total hip. While this loss is significant, her femoral neck BMD remains in the osteopenicrange and her total lumbar spine BMD remains stable. Furthermore, she has been on an oral bisphosphonate for over five years. The risk of continuing this medication for over five years is generally only less than the expected benefit in those with very low BMD. Thus, a drug holiday seems to be indicated to prevent an increase in her risk of an atypical femur fracture. Plan: - To evaluate for secondary causes, will check a spot urine calcium/creatinine ratio and an SPEP/UPEP today - Decrease calcium to 500 mg TID - Continue vitamin D 400 IU TID - Continue weight-bearing acitivities at work - No bisphosphonate therapy for two years, unless clinical picture changes (i.e. fracture) - Recommend that her PCP repeat a DEXA scan two years after bisphosphonate stopped (~04/2017) - Will contact patient once labs return to finalize plan - F/U in two years, sooner if needed, especially if a fracture occurs Patient seen and discussed with the attending Alvarado ThompsonD. Endocrinology, Diabetes, and Metabolism Fellow Leadership Preventive Medicine Resident 04/10/2015 documented in this encounter Miscellaneous Notes * Addendum Note - Gris Harper - 04/10/2015 2:04 PM EDTAddended by: GRIS HARPER on: 04/10/2015 02:04 PM Modules accepted: Orders documented in this encounter Plan of Treatment Upcoming Encounters Date Type Department Care Team (Late st Contact Info) Description 07/07/2024 11:00 AM EDT Office Visit Cardiology at [address] [place] [address] Lorena Lawrence MD [facility] [place] [address] documented as of this encounter Procedures Procedure Name Priority Date/Time Associated Diagnosis Comments CALCIUM CREATININE RATIO, RANDOM URINE Routine 04/10/2015 2:05 PM EDT Osteoporosis PROTEIN ELECTROPHORESIS, URINE, RANDOM Routine 04/10/2015 2:05 PM EDT Osteoporosis GREEN TUBE HOLD Routine 04/10/2015 11:53 AM EDT Osteoporosis LAVENDER TUBE HOLD Routine 04/10/2015 11 :53 AM EDT Osteoporosis VITAMIN D, 25-HYDROXY STAT 04/10/2015 11:53 AM EDT Osteoporosis PROTEIN ELECTROPHORESIS, SERUM Routine 04/10/2015 11:53 AM EDT documented in this encounter Results * Protein Electrophoresis, urine, random (04/10/2015 2:05 PM EDT) U Protein Ran <6 0 - 12 mg/dL CERNER MILLENNIUM U Albumin Not Perf % total CERNER MILLENNIUM Comment: Total Protein concentration too low to fractionate using current electrophoretic technique. U Globulin Not Perf % total CERNER MILLENNIUM Comment: Total Protein concentration too low to fractionate using current electrophoretic technique. U M Band Not Perf None Detected % total CERNER MILLENNIUM Comment: Total Protein concentration too low to fractionate using current electrophoretic technique. U Scan Not Applicable CERNER MILLENNIUM Comment: Total Protein concentration too low to fractionate using current electrophoretic technique. Urine specimen (specimen) 04/10/2015 2:05 PM EDT 04/10/2015 2:29 PM EDT Narrative Resulting Agency Comment Spec In Lab Dung Simpson MD URINE ORDERABLES Performing Organization Address [facility] Co de Phone Number CERFLY RODRIGUEZENNIUM * Calcium Creatinine Ratio, random urine (04/10/2015 2:05 PM EDT) U Calcium 2.9 mg/dL CERNER MILLENNIUM U Creatinine 26 mg/dL CERNER MILLENNIUM Ca/Cre Ratio 0.11 ratio CERNER MILLENNIUM Urine specimen (specimen) 04/10/2015 2:05 PM EDT 04/10/2015 2:29 PM EDT Narrative Resulting Agency Comment Spec In Lab Dung Simpson MD URINE ORDERABLES Performing Organization Address [facility] Co de Phone Number EFFIE RODRIGUEZENNIUM * Protein Electrophoresis, serum (04/10/2015 11:53 AM EDT) Total Prot Elec 6.6 6.1 - 8.0 gm/dL CERNER MILLENNIUM Albumin Elect 4.40 3.60 - 6.00 gm/dL CERNER MILLENNIUM Alpha1-Globuli n 0.18 0.10 - 0.30 gm/dL CERNER MILLENNIUM Alpha2-Globuli n 0.77 0.40 - 0.90 gm/dL CERNER MILLENNIUM Beta Globulin 0.66 0.50 - 1.00 gm/dL CERNER MILLENNIUM Gamma Globulin 0.59 0.50 - 1.30 gm/dL CERNER MILLENNIUM M1 Band None Detected None Detected gm/dL CERNER MILLENNIUM Scan See Note CERNER MILLENNIUM Comment:Please see scanned r eport in Chart Review under the [facility] Laboratory Heading. Blood specimen (specimen) Venous Draw / Unknown 04/10/2015 11:53 AM EDT 04/10/2015 2:06 PM EDT Narrative Resulting Agency Comment Spec In Lab Dung Simpson MD CHEMISTRY ORDERABLES Performing Organization Address [facility] Co de Phone Number EFFIE SEBASTIAN * Lavender Tube HOLD (04/10/2015 11:53 AM EDT) Lavender Hold Sample in lab. EFFIE SEBASTIAN Blood specimen (specimen) 04/10/2015 11:53 AM EDT 04/10/2015 12:03 PM EDT Dung Simpson MD HEMATOLOGY ORDERABLE S Performing Organization Address [facility] Co de Phone Number [facility] * Green Tube HOLD (04/10/2015 11:53 AM EDT) Green Hold Sample in lab. EFFIE SEBASTIAN Blood specimen (specimen) 04/10/2015 11:53 AM EDT 04/10/2015 12:03 PM EDT Dung Simpson MD CHEMISTRY ORDERABLES Performing Organization Address [facility] de Phone Number EFFIE [facility]IGUEZLA [facility] * VIT D Total Evaluation (04/10/2015 11:53 AM EDT) 25-OH Vit D Total 57 30 - 100 ng/mL [facility] Comment: Deficient <10 ng/mL Insufficient 10 to 29 ng/mL Sufficient 30 to 100 ng/mL Potential Intoxication >100 ng/mL According to the [place] National Osteoporosis Foundation, Vitamin D concentrations >30 ng/mL are sufficient to protect bone health. ??The National Kidney Foundation has similarly stated that patients with Vitamin D concentrations <30ng/mL should be considered to be insufficient or deficient. http://Tindie/DHMCnatlkidneyfoundation http://Tindie/DHMCVitD The [employer] iSYS Vitamin D Immunoassay detects both 25-OH Vitamin D2 and 25-OH Vitamin D3, but only a total Vitamin D concentration is reported. Blood specimen (specimen) 04/10/2015 11:53 AM EDT 04/10/2015 12:03 PM EDT Narrative Resulting Agency Comment Spec In Lab Dung Simpson MD CHEMISTRY ORDERABLES Performing Organization Address City/State/[facility] Phone Number [facility] documented in this encounter Visit Diagnoses Diagnosis Osteoporosis Osteoporosis, unspecified documented in this encounter Care Teams Mail Handler Assistant Relationship Specialty Start Date End Date Henrietta Null MD [facility] [address] [address] PCP - General 12/20/10 05/08/20 documented as of this encounter
--- OUTSIDE RECORDS SUMMARY | 2024-04-23 12:17 | XMS_ITS | Encounter Summary ---
Author Organization [facility] [place] [address] Care Team Providers Care Community Resource Consultant Name Role Phone Henrietta Null MD Primary Care Provider [phone] Reason for Visit * Reason Onset Date Comments URI 08/21/2012 Encounter Details Date Type Department Care Team (Late st Contact Info) Description 08/21/2012 Telephone Internal Medicine at [address] [address] Carol Choi, RN URI Social History Tobacco Use Types Packs/Day [...] Telephone Encounter - Carol Choi RN - 08/21/2012 8:39 AM EST Patient went to work today only to be sent home. Has had a URI for 1 week with cough/chills. Now developing ear pain and laryngitis. Asking to be seen. Unfortunately we have no openings and GIM to see the patient this morning. documented in this encounter Plan of Treatment Upcoming Encounters Date Type Department Care Team (Late st Contact Info) Description 07/07/2024 11:00 AM EDT Office Visit Cardiology at [address] [place] [phone] Lorena Lawrence MD [facility] [place] [address] documented as of this encounter Visit Diagnoses Not on filedocumented in this encounter Care Teams Community Resource Consultant Relationship Specialty Start Date End Date Henrietta Null MD [facility] [address] [place] [address] PCP - General 12/20/10 05/08/20 documented as of this encounter
--- OUTSIDE RECORDS SUMMARY | 2024-04-23 12:17 | XMS_ITS | Encounter Summary ---
Author Organization [facility] Address [facility] [place] [address] Care Team Providers Care Air Conditioning Unit Assembler Name Role Phone Henrietta Null MD Primary Care Provider [phone] Encounter Details Date Type Department Care Team (Late st Contact Info) Description 02/06/2015 7:40 AM EDT - 02/06/2015 11:59 PM EDT Hospital Encounter XRay at [address] [place] [address] Osteoporosis Social History Tobacco Use Types Packs/Day [...] mouth daily. 01/10/2012 fluticasone (FLONASE) 50 mcg/actuation [place], SuspensionIndications:C ough, persistent 2 sprays by Each [...] AM EDT Office Visit Cardiology at [address] [place] [address] Lorena Lawrence MD [facility] [place] [address] documented as of this encounter Procedures Procedure Name Priority Date/Time Associated Diagnosis Comments DXA CENTRAL SPINE, HIP, AND/OR WHOLE BODY (GENERIC) Routine 02/06/2015 8:16 AM EDT Osteoporosis documented in this encounter Results * Dexa central-spine, hip, and/or whole body (02/06/2015 8:16 AM EDT) Anatomical Region Laterality Modality C-spine, Hip N/A Radiographic Juliet ging 02/06/2015 8:16 AM EDT Impressions 02/06/2015 10:42 AM EDT IMPRESSION: The measurements fulfill the WHO classification for osteoporosis and they are decreasing since 2013. The rate of loss is 4% decrease [...] BMD measurements and plots are available in 5app under the imaging tab. Paper copies will be sent to providers without 5app access. If you have received this report without the data sheet and do not have access to 5app, please contact Radiology Doctor Of Optometry at [phone] Friday thru Friday 8am-4pm. Narrative 02/06/2015 10:42 AM EDT EXAMINATION: DXA CENTRAL-SPINE,HIP, AND/OR WHOLE BODY CLINICAL HISTORY: on boniva, with osteoporosis;last 5.13 TECHNIQUE: Scans were acquired at the lumbar [...] CENTRAL-SPINE,HIP, AND/OR WHOLE BODY CLINICAL HISTORY: on boniva, with osteoporosis;last 02.08 TECHNIQUE: Scans were acquired [...] BMD measurements and plots are available in EContinental Coalunder the imaging tab. Paper copies will be sent to providers without 5app access.If you have received this report without the data sheet and do not haveaccess to [employer]ental [employer], please contact Radiology Doctor Of Optometry at [phone] Friday thruFrid 8am-4pm. Henrietta Null MD IMG DEXA ORDERABLES documented in this encounter Visit Diagnoses Diagnosis Osteoporosis Osteoporosis, unspecified documented in this encounter Care Teams Air Conditioning Unit Assembler Relationship Specialty Start Date End Date Henrietta Null MD [facility] [address] [place], [place] [id number] PCP - General 12/20/10 05/08/20 documented as of this encounter
--- OUTSIDE RECORDS SUMMARY | 2024-04-23 12:17 | XMS_ITS | Encounter Summary ---
Author Organization [facility] [place] [address] Care Team Providers Care Risk Investigator Name Role Phone Henrietta Null MD Primary Care Provider [phone] Reason for Visit * Reason Comments Follow Up Surgery exc of lesion left f oot and right hand Encounter Details Date Type Department Care Team (Late st Contact Info) Description 05/13/2012 8:00 AM EDT [place] [address] Caitlin Mccarty APRN [facility] [place] [address] Other specified aftercare following surgery (Primary Dx) [...] this encounter Patient Instructions * Patient Instructions* Caitlin Mccarty APRN - 05/13/2012 8:21 AM EDT SCAR MASSAGE TECHNIQUE: to begin 1 month following surgery What is a scar? When an injury occurs, the body immediately begins to repair itself & the area becomes swollen & sore. Eventually small collagen fibers form, becoming a solid tissue that results in a scar. This scar will continue to change in appearance for 1-2 years. Ideally, a scar is smooth & flat, blending in with the surrounding skin. However, some scars may become highly visible & unattractive due to factors such as your age, scar location & size, nutrition, genetics, or infection. A hypertrophic scar occurs when there is an excess production of collagen tissue that is elevated but remains within the wound boundaries. The scar is tense, red, & can be associated with itching & tenderness. A hypertrophic scar can be ordinary (usually stabilizes in 3 months & may even get smaller and smoother) or keloid. The keloid scar invades nearby tissue that was not part of the original wound, tends to enlarge even after 6 months & does not get softer. Will scar massage make my scars disappear? Nothing can make scars disappear. However, massaging the scar assists the body in breaking down thescar tissue to give it a flatter, softer, appearance. Massage also mobilizes the scar, preventing it from adhering to underlying tissue, tendons, & nerves. You can make the greatest difference in the appearance of the scar if you massage it in the first 3months. What should I use on my scars? You will hear many recommendations. This clinic finds that it is the massage itself that reduces the scar & not necessarily the choice of ointments or creams. We do discourage the use of Vitamin E oil, however, due to studies that have reported scar inflammation & deterioration. How do I massage my scars? Generously apply the lotion or cream into the scar 3-4 times a day for 8 weeks on new scars, and 3-4 times per day for 3 to 6 months on existing scars. Using your finger, apply pressure to the scar in a crosswise & circular direction, bearing down as hard as tolerated. Remember to protect your scar from the sun, especially in the first 6 months, by using a moisturizer with sunblock and wearing a physical barrier (ie: a hat) when possible Plan: 1. Wash incision area on hand gently daily with soap and water, pat dry and apply antibiotic ointment twice daily 2. Watch for signs of infection, increased redness, swelling, pain, purulent discharge, fever or chills. Call clinic for appointment if concerns. 3. tart scar massage in one month, instructions provided 4. Sun exposure avoidance and use of sun screen 5. Keep steri strips in place until they fall off on their own. documented in this encounter Progress Notes * Caitlin Mccarty APRN - 05/13/2012 8:12 AM EDT PLASTIC SURGERY OFFICE NOTE Heike Ramires returned to our office today for post surgical follow-up Date of Surgery: 04/29/12 Operation: excision of 2 lesions Anatomic Location: right hand palm and left dorsal foot Complications: none Pain: 0/10 Specific complaints/comments: She is doing well but does report some pulling at the suture sites. She was worried about infection on her hand. She has been treating with peroxide and betadine solution. Physical Examination: Right palm incisions CDI, pustules surrounding distal two sutures. Erythema immediately surroundingwound, suture removed today, Left foot incisions CDI, no signs of infection, sutures removed toady, steri strips placed Pathology was reviewed with the patient and she was provided with a copy. Plan: 1. Wash incision area on hand gently twice daily with soap and water, pat dry and apply antibiotic ointment twice daily 2. Watch for signs of infection, increased redness, swelling, pain, purulent discharge, fever or chills. Call clinic for appointment if concerns. 3. start scar massage in one month, instructions provided 4. Sun exposure avoidance and use of sun screen 5. Keep steri strips in place until they fall off on their own. Prescriptions provided: none Follow up: PRN for any concerns documented in this encounter Plan of Treatment Upcoming Encounters Date Type Department Care Team (Late st Contact Info) Description 07/07/2024 11:00 AM EDT Office Visit Cardiology at [address] [place] [address] Lorena Lawrence MD [facility] [place] [address] documented as of this encounter Visit Diagnoses Diagnosis Other specified aftercare following surgery- Primary documented in this encounter Care Teams Risk Investigator Relationship Specialty Start Date End Date Henrietta Null MD [facility] [place] [address] PCP - General 12/20/10 05/08/20 documented as of this encounter
--- OUTSIDE RECORDS SUMMARY | 2024-04-23 12:17 | XMS_ITS | Encounter Summary ---
Author Organization [facility] [place] [address] Care Team Providers Care Shared Services And Outsourcing Manager Name Role Phone Henrietta Null MD Primary Care Provider [phone] Reason for Visit * Reason Onset Date Comments Questions 02/17/2015 Encounter Details Date Type Department Care Team (Late st Contact Info) Description 02/17/2015 Telephone Internal Medicine at [address] [address] Jenn Norton Questions Social History Tobacco Use Types Packs/Day [...] Telephone Encounter - Carol Choi RN - 02/17/2015 4:[address] Null did hear back from the Soap Drier Tender who recommended that she stop the Boniva since she has been on it for 5 years and monitor the DEXA in 2 years. Patient has two more and will take them and then stop. * Telephone Encounter - Jenn Harrell - 02/17/2015 3:54 PM EDT Message: patient received a letter from stating that the Boniva is not working and she iswondering what she should do because she is suppose to take this medication at the beginning of February. Caller (if other than patient-full name): Relationship (if other than patient): Phone: [phone] Best time to call back: any Ok to leave a message: [ yes ] Ok to send my- message [n] Attempted to contact Nurse [ yes ] documented in this encounter Plan of Treatment Upcoming Encounters Date Type Department Care Team (Late st Contact Info) Description 07/07/2024 11:00 AM EDT Office Visit Cardiology at [address] [address] Lorena Lawrence MD [place] [address] documented as of this encounter Visit Diagnoses Not on filedocumented in this encounter Care Teams Shared Services And Outsourcing Manager Relationship Specialty Start Date End Date Henrietta Null MD [facility] [address] [place] [address] PCP - General 12/20/10 05/08/20 documented as of this encounter
--- OUTSIDE RECORDS SUMMARY | 2024-04-23 12:17 | XMS_ITS | Encounter Summary ---
Author Organization [facility] [place] [address] Care Team Providers Care Line Installer Name Role Phone Henrietta Null MD Primary Care Provider [phone] Reason for Visit * Reason Comments Annual Exam Encounter Details Date Type Department Care Team (Late st Contact Info) Description 01/20/2013 1:20 PM EDT Office Visit Internal Medicine at [address] [address] Henrietta Null MD [facility] [address] Osteoporosis (Primary Dx); Allergic rhinitis; Hyperlipidemia; Trigeminal neuralgia; Preventative health care Discharge Disposition: Home Social History Tobacco Use [...] Sign Reading Time Taken Comments Blood Pressure 122/60 01/20/2013 1:13 PM EDT Pulse 65 01/20/2013 1:13 PM EDT Temperature 36.6 ??C (97.8 ??F) 01/20/2013 1:13 PM ED T Respiratory Rate - - Oxygen Saturation 98% 01/20/2013 1:13 PM EDT Inhaled Oxygen Concentration - - Weight 56.2 kg (124 lb) 01/20/2013 1:13 PM EDT Height 149.9 cm (4' 11) 01/20/2013 1:13 PM EDT Body Mass Index 25.04 01/20/2013 1:13 PM EDT documented in this encounter Progress Notes * Henrietta Null MD - 01/21/2013 11:52 AM EDT ANNUAL PHYSICAL I. HISTORY Reason(s) for Visit: Here for annual exam with review of his acute and chronic medical issues. In general has felt well. Medical Issues include: 1. Trigeminal neuralgia - No pain whatsoever. Followed [facility] at [email or web address] Is now taking inositol at recommendation of chiropracter. MD in [facility] felt this was reasonable, was able to decrease her tegretol dose down to 3 tabs/day with the inositol 2. Osteoporosis - on boniva. Back on vit D after having low levels and elevated PTH. Also taking her ca. Last DEXA scan with T score -2.8 lowest. 3. Ovarian fibroma - underwent resection 3 years ago with BSO. No further abdominal pain. 4. Sinus congestion - congested in the morning, continues to afternoon. Feels something in her throat, trial of claritin and mucinex without improvement. ROS: Constitutional - no fevers, chills, weight stable, no fatigue, no sleep problems HEENT - No difficulty swallowing. Hearing normal. No nasal congestion or postnasal drip Skin - no new rash, lesions or pruritis Eyes - No visual changes, blurriness or visual loss Respiratory - No SOB, KRUGER, wheeze, cough, sputum production Cardiovascular - No CP, palpitations, angina,claudication Breast - No lesions, lumps or nodules noted Gastrointestinal - No abdominal pain, nausea, GERD, constipation, diarrhea, blood in stool Genitourinary - No abnormal discharge, masses or nodules. No dysuria, urinary hesitancy, incontinence Musculoskeletal - No weakness, pain at rest or with movement. No arthralgias, arthritis,reduced motion Endocrine - No polydipsia, polyuria, palpitations, temperature intolerance Psychiatric - No sadness, depression, anxiety, anhedonia, suicidal ideation Neurological -+ trigeminal neuralgia. No other numbness, tingling, loss of sensation, weakness or function of limbs. No headaches Heme/Lymph - No bleeding, lymph node swelling, night sweats All other systems negative PREVENTION DT: Tdap 12/13/08 (from scanned pcp records in [facility]) Pneumovax: 2009 Influenza:2010 Shingles:2011 Cigarettes: none Alcohol: none Caffeine:little Exercise: active in job, treadmill 1/2 Seat Belts: consistent Helmets:consistent Cholesterol (Total/HDL/LDL): Lab Results Component Value Date CHLPL 238* 03/20/2012 HDL 57 03/20/2012 TRIG 120 03/20/2012 LDLCHOL 157* 03/20/2012 Diabetes Screenin 2011 Optho Screening: going in February Calcium/Vitamin D: adequate Colon Cancer Screening: Colonoscopy spring 2008 - neg Osteoporosis Screening: Dexa 2010, lowest -2.8 spine Breast Cancer Screening: Mammogram 01/09 neg Self Breast Exam: Yes Cervical Cancer Screening: Pap smear 11/2008, never with abnl Sexual History: not sexually active Control:n/a HIV Status: unknown Advanced Directives: No Outpatient prescriptions marked as taking for the 01/10/12 encounter (Office Visit) with HENRIETTA NULL Medication Sig Dispense Refill ??? CALCIUM LACTATE ORAL Take by mouth. ??? INOSITOL ORAL Take by mouth. ??? ibandronate (BONIVA) 150 mg tablet Take 1 tablet by mouth every 30 days. 3 tablet 3 ??? senna-docusate (PERICOLACE) 8.6-50 mg per tablet Take 1 tablet by mouth 2 times daily as needed. 60 tablet 2 ??? TEGRETOL 200 mg tablet Take 1 tablet by mouth 4 times daily as needed. 60 tablet 5 ??? DISCONTD: Calcium Carbonate-Vitamin D3 (CALCIUM 600 WITH VITAMIN D3) 600 mg(1,500mg) -400 unit Chew History Social History Narrative Lives in [place], with her . 4 children ([place], [facility], [facility], nearby). 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 No tob No etoh rare caffeine (tea)exercise at work only Father age 88, + cerebral aneurysm, also with AAA Mother age 40 with SLE Colon Cancer - sister Pancreatic Duct cancer? - sister, also with COPD Brother - from trauma, pt relates to etoh Sister - diverticulitis History including PMH, Family and Social history reviewed and updated II. PHYSICAL EXAM: Filed Vitals: 01/20/13 1313 BP: 122/60 Pulse: 65 Temp: 36.6 ??C (97.8 ??F) TempSrc: Oral Height: 149.9 cm (4' 11) Weight: 56.246 kg (124 lb) SpO2: 98% General - Comfortable, no apparent distress. ENT - Ears: Tympanic membranes and canals normal, hearing normal. Sinuses: Nontender Oropharynx: oral mucosa moist without lesions Eyes- EOMI, anicteric, PERRL, conjunctiva noninjected Neck - No lymphadenopathy. Full range of motion, no bruits, no thyromegaly Lungs - Clear to auscultation. Heart - RRR, S1,S2, no murmur, gallop or rub. Pulses intact. Abdomen - Soft, nontender, normal active bowel sounds, neg hsm or masses. Extremities - No edema. Joints with bony hypertrophy at DIP/PIP. Skin - No lesions. No rashes. Nodes - Negative x cervical axillary, inguinal Chest/Back - No spinal tenderness, no CVAT Breast Exam - No masses or tenderness. axillary nodes negative. Pelvic exam - deferred Neurological - Orientation - person, place and time. Cranial nerves intact. III. MEDICAL DECISION MAKING: Assessment/Plan: Heike was seen today for annual exam. Diagnoses and associated orders for this visit: Osteoporosis - query bone density - check dexa, check vit D level - *Dexa generic bone densitometery/scan; Future - VIT D Total Evaluation; Future Trigeminal Neuralgia - stable on lower dose of tegretol, recent tegretol level at therapeutic level. Will cont to follow. Allergic rhinitis - trial of steroid nasal spray. - fluticasone (FLONASE) 50 mcg/actuation nasal spray; 2 sprays by Each Nare route daily Hyperlipidemia - borderline checks in past. - BMP w/fasting Glucose; Future - Lipid panel (fasting); Future Prevention Screening Colon Cancer UTD, repeat 2019 Cholesterol Check Diabetes Check Breast Cancer Mammogram utd Cervical Cancer UTD/not indicated Osteoporosis Check dexa Immunizations Tetanus OK Pneumovax OK Shingles UTD * Eamon Powers - 01/20/2013 1:33 PM EDT ANNUAL PATIENT VISIT Chief Complaint Patient presents with ??? Annual Exam Pt is a 67 y.o. who presents for annual visit with me. Issues today are: Doing good. Feels congestion in morning until afternoon, past 6 mo. feels like there's something in my throat. Taken Claritin and Mucinex doesn't help. Notes she has allergies. No sneezing, cough, SOB, wheezing, sore throat. Tried saline nasal spray which seems to help. Trigeminal Neuralgia: Taking tegretol only TID now as she has added inositol (recommended by her chiropractor). Has not had pain since she has decreased tegretol. She would like to continue to decrease as tolerated. 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 Taking ibandronate. Breast Cancer Screening: Mammogram 01/09 neg Cervical Cancer Screening: Pap smear 11/2008, never with abnl Sexual History: not sexually active Advanced Directives: No ROS: Constitutional - no fevers, chills, weight loss or gain, fatigue HEENT - No difficulty swallowing, hearing, No nasal congestion or postnasal drip Respiratory [...] no new rashes All other systems negative Patient Active Problem List Diagnoses ??? Other specified aftercare following surgery ??? Skin lesion of hand ??? Nevus, atypical - foot ??? Trigger fingers, left thumb and ring, right ring ??? Preventative health care DT: Tdap 12/13/08 (from scanned pcp records in [facility]) Pneumovax: 2009 Influenza:2010 Shingles: Cigarettes: none Alcohol: none Caffeine:little Exercise: active in job, treadmill 1/2 Seat Belts: consistent Helmets:consistent Cholesterol (Total/HDL/LDL): no record Diabetes Screenin Optho Screening: recent Calcium/Vitamin D: adequate Colon Cancer Screening: Colonoscopy spring 2008 - neg Osteoporosis Screening: Dexa 2008 Breast Cancer Screening: Mammogram 01/08 neg Self Breast Exam: Yes Cervical Cancer Screening: Pap smear 11/2008, never with abnl Sexual History: not sexually active Control:n/a HIV Status: unknown Advanced Directives: No ??? Ovarian fibroma ??? Osteoporosis ??? Trigeminal neuralgia Current Outpatient Prescriptions on File Prior to [...] cyanocobalamin (VITAMIN B-12) 1,000 mcg tablet ??? benzonatate (TESSALON) 100 mg capsule Take 1 capsule by mouth 3 times daily as needed for Cough. 30 tablet 0 Allergies Allergen Reactions ??? Methadone Hcl headaches ??? Morphine Sulfate Nausea And Vomiting ??? Oxidized Glycerol Triesters headache ??? Oxycodone Hcl severe headaches ??? Codeine Phosphate stomach ache History Social History ??? Marital Status: Spouse [...] on file Social History Narrative Lives in [place], with her . 4 children ([place], [facility], [facility], nearby). 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 No tobNo etohrare caffeine (tea)exercise at work only Father age 88, + cerebral aneurysm, also with AAAMother age 40 with SLEColon Cancer - sisterPancreatic Duct cancer? - sister, also with COPDBrother - from trauma, pt relates to etohSister - diverticulitis Family History Problem Relation Age of Onset ??? Aneurysm Father cerebral aneurysm ??? Abdominal Aortic Aneurysm Father ??? Lupus Mother ??? Colorectal Cancer Sister ??? Pancreatic Cancer Sister ?pancreatic duct CA ??? Chronic Obstructive Pulmonary Disease Sister ??? * Sister diverticulitis Physical Exam: BP 122/60 Pulse 65 Temp(Src) 36.6 ??C (97.8 ??F) (Oral) Ht 149.9 cm (4' 11) Wt 56.246 kg (124 lb) BMI 25.04 kg/m2 SpO2 98% General - Pleasant Elderly petite woman, No acute distress. ENT - Mouth without lesions. Eyes- EOMI. Not jaundiced. Noninjected Neck - No lymphadenopathy Lungs - Clear to auscultation. Heart - RRR, S1,S2, no audible murmur, gallop or rub. Breast- No masses , tenderness or nipple discharge Abdomen/GI - Soft, nontender, normal active bowel sounds, neg hsm or masses. Extremities - No clubbing, cyanosis or edema. Pulses intact. Sensation- Intact to light touch upper and lower extremities Assessment and Plan: 67 yo F here today for annual exam presents in overall good health. Immunizations are UTD. Screening is UTD. Will need DEXA this year (as below). Sinus congestion: Would recommend continuing saline nasal spray and mucinex but will add rx for steroid nasal spray. - Flonase HLD: Last two lipid panels with borderline LDL. Goal <160. Will repeat fasting lipid. Discussed dietary measures to limit cholesterol. - fasting lipid panel future Osteoporosis: On bisphosphonate. Vit D level 27 in 2011. Will repeat since pt is not 100% compliantwith Vit D. Last DEXA 2010. - Vit D level - Due for DEXA (last in 2010) Trigeminal Neuralgia: Well-controlled on tegretol and otc inositol. Can cont. To wean tegretol as tolerated. - c/w tegretol as needed RTC 1 year for annual Eamon Powers MS IV Pt seen and discussed with Henrietta Null MD documented in this encounter Plan of Treatment Upcoming Encounters Date Type Department Care Team (Late st Contact Info) Description 07/07/2024 11:00 AM EDT Office Visit Cardiology at [address] [place] [address] Lorena Lawrence MD [place] [address] documented as of this encounter Results * VIT D Total Evaluation (02/03/2013 10:55 AM EDT) 25-OH Vit D Total 40 30 - 100 ng/mL [facility] Comment: Deficient <10 ng/mL Insufficient 10 to [...] In Lab Henrietta Null MD CHEMISTRY ORDERABLES CERNER MILLENNIUM * (ABNORMAL) BMP w/fasting Glucose (02/03/2013 10:30 AM EDT) [facility] Signature Glucose Fasting 90 65 - 99 mg/dL CERNER MILLENNIUM Comment: [...] of Diabetes Mellitus, Position Statement from the [place] [employer] Association. ??Diabetes Care, Volume 33, Supplement 1, Sep 2009 BUN 17 8 - 18 mg/dL CERNER MILLENNIUM Creatinine 0.61(L) 0.70 - 1.20 mg/dL [facility]ERNER MILLENNIUM Comment: Please note that the pediatric reference intervals supplied above were not validated at [facility]. Results from pediatric patients should be interpreted [...] In Lab Henrietta Null MD CHEMISTRY ORDERABLES [facility] * (ABNORMAL) Lipid panel (fasting) (02/03/2013 10:30 AM EDT) Chol, Total 242(H) <=199 mg/dL [facility] Comment: Recommendations of the NCEP Adult Treatment Panel for the following risk cutoff thresholds for the [place] population: Desirable: <200 mg/dL Borderline High: 200-239 mg/dL High: > or = 240 mg/dL Triglycerides 82 <=149 mg/dL [facility] Comment: Reference Range: Normal triglycerides: ??<150 mg/dL Borderline high: ??150-199 mg/dL High: ??200-499 mg/dL Very high: ??>up=595 mg/dL THANIA 2001; 285(19):3018-5492 HDL 74 >=40 mg/dL [facility] Comment: Reference range: ??Low HDL: ?? < 40 mg/dL ??Normal: ?40-60 mg/dL ??Desirable: > 60 mg/dL THANIA 2001; 285(19):5635-2154 LDL Cholesterol 152(H) <=99 mg/dL [facility] Comment: Reference range: ?? Optimal: ?<100 mg/dL ?? Near Optimal/Above Optimal: ?? 100-129 mg/dL ?? Borderline high: ?130-159 mg/dL ?? High: ? 160-189 mg/dL ?? Very high: ?>ky=351 mg/dL THANIA 2001: 285(19):9272-2796 Chol/HDL Ratio 3.3 ratio [facility] SE[facility]STIAN Comment: A Cholesterol to HDL ratio below 4:1 is desirable. ??Studies suggest that increased CAD risk occurs at ratios above 5 for females and above 6 for men. ? [place] Heart Association ??(http://www.americanheart.org) ? Airam Int Med, 1994; 121:641 ? AM J Med, 1998; 105(1A):48S Blood specimen (specimen) 02/03/2013 10:30 AM EDT 02/03/2013 12:22 PM EDT Narrative Resulting Agency Comment Spec In Lab Henrietta Null MD CHEMISTRY ORDERABLES EFFIE SEBASTIAN documented in this encounter Visit Diagnoses Diagnosis Osteoporosis- Primary Osteoporosis, unspecified Allergic rhinitis Allergic rhinitis, cause unspecified Hyperlipidemia Other and unspecified hyperlipidemia Trigeminal neuralgia Preventative health care Routine general medical examination at a health care facility documented in this encounter Care Teams Line Installer Relationship Specialty Start Date End Date Henrietta Null MD [facility] [address] [address] PCP - General 12/20/10 05/08/20 documented as of this encounter
--- OUTSIDE RECORDS SUMMARY | 2024-04-23 12:18 | XMS_ITS | Encounter Summary ---
Author Organization [facility] [place] [address] Care Team Providers Care Circuits Engineer Name Role Phone Henrietta Null MD Primary Care Provider [phone] Reason for Visit * Reason Onset Date Comments Medication Refill 06/17/2011 Encounter Details Date Type Department Care Team (Late Contact Info) Description 06/17/2011 Refill Internal Medicine at [address] [address] Henrietta Null MD [facility] [place] [address] Trigeminal neuralgia (Primary Dx) Social History Tobacco Use Types [...] AM EDT Office Visit Cardiology at [address] [id number] Lorena Lawrence MD [place] [address] documented as of this encounter Visit Diagnoses Diagnosis Trigeminal neuralgia- Primary documented in this encounter Care Teams Circuits Engineer Relationship Specialty Start Date End Date Henrietta Null MD [facility] [address] [place] [address] PCP - General 12/20/10 05/08/20 documented as of this encounter
--- OUTSIDE RECORDS SUMMARY | 2024-04-23 12:18 | XMS_ITS | Encounter Summary ---
Author Organization [facility] [place] [address] Care Team Providers Care Policyholder Information Clerk Name Role Phone Henrietta Null MD Primary Care Provider [phone] Reason for Visit * Reason Onset Date Comments Other 03/24/[address] jh ruvalcaba's call Encounter Details Date Type Department Care Team (Late st Contact Info) Description 03/24/2012 [place] [address] Cecilia Graham MD [facility] [place] [address] Other (returning dr graham's call) Social History Tobacco Use Types Packs/Day [...] * Telephone Encounter - Bruna Huang - 03/24/2012 8:[address] Graham patient Patient returning Dr Graham's call. She can be reached at [phone] radha documented in this encounter Plan of Treatment Upcoming Encounters Date Type Department Care Team (Late st Contact Info) Description 07/07/2024 11:00 AM EDT Office Visit Cardiology at [address] [facility] [place] [phone] Lorena Lawrence MD [facility] [place] [address] documented as of this encounter Visit Diagnoses Not on filedocumented in this encounter Care Teams Policyholder Information Clerk Relationship Specialty Start Date End Date Henrietta Null MD [facility] [address] [place] [address] PCP - General 12/20/10 05/08/20 documented as of this encounter
--- OUTSIDE RECORDS SUMMARY | 2024-04-23 12:18 | XMS_ITS | Encounter Summary ---
Author Organization [facility] [place] [address] Care Team Providers Care Produce Specialist Name Role Phone Henrietta Null MD Primary Care Provider [phone] Reason for Visit * Reason Onset Date Comments Pre Procedure Call 04/14/2012 Encounter Details Date Type Department Care Team (Late st Contact Info) Description 04/14/2012 Telephone [place] [address] Luis Alberto Collins MD [facility] [place] [address] Pre Procedure Call Social History Tobacco Use [...] encounter Miscellaneous Notes * Telephone Encounter - Aranza Trujillo LPN - 04/14/2012 2:18 PM EDT Aranza Trujillo LPN Dermatology Pre - OP Call Date of Call: 04/14/12 Spoke with regarding up-coming procedure on 04/15/12. Review of medications: In EDH Instructed patient to take all meds as directed. Review of allergies: ALL LISTED IN EDH Review of Medical history: In EDH Does not take antibiotics for dental work. Does not have any cardiac issues, murmurs or valve replacements. Does not have a pacemaker or defibulator. Has not had a total joint replacement with in the last 2 years. Patient was instructed not to eat and drink morning of procedure. Recommend that patient be accompanied by someone who can drive her/him home. Discuss length of procedure and time variables. Post op instructions reviewed. Physical limitations discussed. Given phone number [phone] should questions arise before or after procedure. documented in this encounter Plan of Treatment Upcoming Encounters Date Type Department Care Team (Late st Contact Info) Description 07/07/2024 11:00 AM EDT Office Visit Cardiology at [address] [address] Lorena Lawrence MD [facility] [place] [address] documented as of this encounter Visit Diagnoses Not on filedocumented in this encounter Care Teams Produce Specialist Relationship Specialty Start Date End Date Henrietta Null MD [facility] [address] [place] [address] PCP - General 12/20/10 05/08/20 documented as of this encounter
--- OUTSIDE RECORDS SUMMARY | 2024-04-23 12:18 | XMS_ITS | Encounter Summary ---
Author Organization [facility] [place] [address] Care Team Providers Care Shoe Lacer Name Role Phone Henrietta Null MD Primary Care Provider [phone] Encounter Details Date Type Department Care Team (Latest Contact Info) Description 01/01/2012 7:08 AM EDT - 01/01/2012 11:59 PM EDT Hospital [place] [id number] CLINIC, Henrietta Cordon MD [facility] [address] [address] Discharge Disposition: Home Social History Tobacco Use [...] Sig Dispensed Refills Start Date End Date ibandronate (BONIVA) 150 mg tabletIndications:Osteop orosis Take 1 tablet by mouth every 30 days. 3 tablet 3 12/10/2011 01/11/2013 senna-docusate (PERICOLACE) 8.6-50 mg per tablet Take 1 tablet by mouth 2 times daily as needed. 60 tablet 2 11/28/2011 01/27/2015 TEGRETOL 200 mg tabletIndications:Trigem inal neuralgia Take 1 tablet by mouth 4 times daily as needed. 60 tablet 5 06/18/2011 01/21/2014 cyanocobalamin (VITAMIN B-12) 1,000 mcg tablet 12/20/201006/01 documented as of this encounter Plan of Treatment Upcoming Encounters Date Type Department Care Team (Late st Contact Info) Description 07/07/2024 11:00 AM EDT Office Visit Cardiology at [address] [place] [address] Lorena Lawrence MD [facility] [place] [address] documented as of this encounter Procedures Procedure Name Priority Date/Time Associated Diagnosis Comments MAMMO SCREENING CAD BILATERAL Routine 01/01/2012 7:35 AM EDT documented in this encounter Results * MAMMO DIGITAL BILATERAL SCREENING WITH CAD (01/01/2012 7:35 AM EDT) Anatomical Region Laterality Modality Breast Bilateral Mammography 01/01/2012 7:35 AM EDT Narrative 01/03/2012 9:46 AM EDT BILATERAL MAMMOGRAPHY ?? REASON FOR EXAM: Screening ?? TECHNIQUE: Cranio-caudal (CC) and mediolateral oblique (MLO) views of both breasts obtained with direct digital capture. The exam was evaluated by CAD Version 8.3.17. ??In addition to the routine 2D imaging this exam was also performed with 3D tomographic imaging in MLO and CC projections. ?? FINDINGS: This is a negative mammogram (ACR Category 1). There is a stable fibroglandular pattern without significant change as compared to prior studies. There is no mammographic evidence of cancer. ? The breasts are of scattered density. ? CONCLUSION ?? This is a NEGATIVE mammogram (ACR Category 1). Routine screening mammography is recommended with the frequency dependent on the patient's age and breast cancer risk factors. ?? A letter has been sent to this patient by [facility]. Procedure Note Trent Soria MD - 01/03/2012 BILATERAL MAMMOGRAPHY REASON FOR EXAM: Screening TECHNIQUE: Cranio-caudal (CC) and mediolateral oblique (MLO) views of both breasts obtained with direct digital capture. The exam was evaluated byCAD Version 8.3.17. In addition to the routine 2D imaging this exam was also performed with 3D tomographic imaging in MLO and CC projections. FINDINGS: This is a negative mammogram (ACR Category 1). There is a stable fibroglandular pattern without significant change as compared to priorstudies. There is no mammographic evidence of cancer. The breasts are of scattered density. CONCLUSION This is a NEGATIVE mammogram (ACR Category 1). Routine screeningmammography is recommended with the frequency dependent on the patient's age and breastcancer risk factors. A letter has been sent to this patient by the [facility]. Henrietta Null MD IMG MAMMO ORDERABLES documented in this encounter Visit Diagnoses Not on filedocumented in this encounter Care Teams Shoe Lacer Relationship Specialty Start Date End Date Henrietta Null MD [facility] [place] [address] PCP - General 12/20/10 05/08/20 documented as of this encounter
--- OUTSIDE RECORDS SUMMARY | 2024-04-23 12:18 | XMS_ITS | Encounter Summary ---
Author Organization [facility] [place] [address] Care Team Providers Care Tobacco Dipper Name Role Phone Henrietta Null MD Primary Care Provider [phone] Encounter Details Date Type Department Care Team (Late st Contact Info) Description 03/11/2012 9:30 AM EDT Follow-Up [place] [address] Yola Hoffmann, OT [facility]YSICAL MEDIC[facility] & [place] [address] Trigger fingers, left thumb and ring, right ring (Primary Dx) Social History Tobacco Use Types [...] as of this encounter Progress Notes * Yola Louis, OT - 03/11/2012 11:25 AM EDT OCCUPATIONAL THERAPY PROGRESS NOTE CERTIFICATION PERIOD: 02/06/12 - 03/25/12 REFERRAL SOURCE: Mushtaq Mann PA-C ATTENDING: Dr. Gomez Laboy VISIT# 6 DIAGNOSIS: 1. Trigger fingers, left thumb and ring, right ring (727.03B) DATE OF INJURY: Onset of symptoms approximately 6 months ago DATE OF SURGERY: none NEXT MD FOLLOW UP: 03/25/12 TOTAL TREATMENT TIME: 35 Minutes TIMED CODE TREATMENT TIME: 35 minutes CURRENT HISTORY: Heike Ramires is a 67 y.o. 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 Patient reported she has had increasing pain in her left thumb and ring finger as well as her right ring finger for approximately 6 months. Heike Ramires was seen by Mushtaq Mann for con sultation and diagnosed her with trigger fingers. At this time he has referred her to Occupational Therapy for evaluation and treatment to include splinting. Patient presents today alone. Mechanism of Injury: Patient's symptoms come from overuse. Current Symptoms: Patient presents with improved IP flexion in her thumb and absent triggering in her ring fingers. 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 HAND DOMINANCE: Right TREATMENT TODAY: Ultrasound (100%, 3.3 MHz, 1.0 W/cm2, 7 minutes) with additional 2 minutes of set-up time, used forsoft tissue preparation prior to treatment activities applied today to the left thumb. There-Ex: 15 minutes Soft tissue mobilization through volar finger and over A1 rohit Gentle PROM of finger into composite flexion and extension Ice massage ASSESSMENT: Heike Ramires no longer has any triggering in her ring fingers. She showed improved IP flexion today without pain, however, triggering is present without locking. She will continue to benefit from Occupational Therapy to continue to decrease triggering in her left thumb. Thermo Cementing Folder Operator Goals (to be met by discharge): Heike Ramires will be able to resume all occupational roles independently without restriction. Short Term Goals (to be met by 03/25/12): 1. Heike Ramires will be independent with home exercises as evident with demonstration in therapy. 2. Heike Ramires will demonstrate independence with donning and doffing of splint and verbalization of splinting purpose. 3. Heike will demonstrate the ability to complete her daily routine of cleaning homes with 2/10 pain. PLAN: The patient is to be seen 1 time(s) per week, for 6 week(s) to progress toward short and nursing home goals. Soft tissue mobilization as therapeutically necessary to decrease pain and/or increase mobility Splinting to provide support and protection to the joint Perform modalities as therapeutically necessary to decrease pain and increase mobility (X) Heike Ramires participated in the evaluation, collaborated on treatment goals, and agrees tothe treatment plan . documented in this encounter Plan of Treatment Upcoming Encounters Date Type Department Care Team (Late st Contact Info) Description 07/07/2024 11:00 AM EDT Office Visit Cardiology at [address] [place] [address] Lorena Lawrence MD [facility] [place] [address] documented as of this encounter Visit Diagnoses Diagnosis Trigger fingers, left thumb and ring, right ring- Primary Trigger finger (acquired) documented in this encounter Care Teams Tobacco Dipper Relationship Specialty Start Date End Date Henrietta Null MD [facility] [address] [place] [address] PCP - General 12/20/10 05/08/20 documented as of this encounter
--- OUTSIDE RECORDS SUMMARY | 2024-04-23 12:18 | XMS_ITS | Encounter Summary ---
Author Organization [facility] [place] [address] Care Team Providers Care Appliance Counselor Name Role Phone Henrietta Null MD Primary Care Provider [phone] Reason for Visit * Reason Comments Procedure Encounter Details Date Type Department Care Team (Latest Contact Info) Description 03/20/2012 8:00 AM EDT Procedure [place] [address] Cecilia Mercado MD [facility] [place] [address] Dysplastic nevus (Primary Dx) Discharge Disposition: Home Social History [...] Sign Reading Time Taken Comments Blood Pressure 112/57 03/20/2012 8:00 AM EDT Pulse 52 03/20/2012 8:00 AM EDT Temperature - - Respiratory Rate 18 03/20/2012 8:00 AM EDT Oxygen Saturation - - Inhaled Oxygen Concentration - - Weight 53.5 kg (118 lb) 03/20/2012 8:00 AM EDT Height 149.9 cm (4' 11) 03/20/2012 8:00 AM EDT Body Mass Index 23.83 03/20/2012 8:00 AM EDT documented in this encounter Progress Notes * Hardeep Solis MD - 03/22/2012 9:17 PM EDT Provider HARDEEP SOLIS MD I saw and evaluated the patient. I have reviewed the patient's history during the visit and I agreewith details as written. My physical examination confirms Dr. Mercado's findings. The assessment and plan were formulated in discussion with me at the time of visit and I agree with them as documented. I was present during entire procedure. HRADEEP SOLIS MD, M.D. Section of Dermatology * Cecilia Mercado MD - 03/20/2012 8:34 AM EDT Chief Complaint: atypical nevi History of Present Illness: Referring Physician: Cecilia Mercado MD Tumor type: DN Location of Skin Cancer: ___left dorsal foot Duration of Presence: ___few months Previous Treatment [X] No [ ] Yes When: Symptoms: [ ] pain [ ] bleeding [ ] crusting [ ] other Previous History of Skin Cancer: [X] none [ ] list Family History of Skin Cancer [X] none [ ] melanoma [ ] basal cell [ ] squamous cell [ ] other Review of Systems: Check all that apply regarding other health problems Skin Hematological Eyes/Ears/Nose/Throat [X] normal [X] normal [X] normal [ ] thick scars/keloids [ ] anemia [ ] glaucoma [ ] poor wound healing [ ] bleeding problems [ ] hearing aid [ ] herpes infection/cold sores [ ] enlarged lymph nodes [ ] cosmetic surgery [ ] other [ ] other [ ] other Cardiovascular Respiratory GI/Renal [X] normal [X] normal [X] normal [ ] angina (chest pain) [ ] emphysema [ ] colitis [ ] heart attack (Date____) [ ] COPD [ ] stomach ulcer [ ] artificial heart valve [ ] asthma [ ] kidney disease [ ] pacemaker/defib [ ] other [ ] other [ ] HTN [ ] other Musculoskeletal Endocrine Infections [X] normal [X] normal [X] none [ ] arthritis [ ] thyroid disease [ ] HIV/AIDS [ ] artificial joint (Year ____) [ ] diabetes [ ] hepatitis (type ) [ ] other [ ] other [ ] tuberculosis [ ] other Neurological Psychiatric [X] normal [X] normal [ ] stroke [ ] anxiety [ ] seizures [ ] depression [ ] mental status change [ ] other [ ] other Do you take antibiotics prior to having a dental or any other procedure [X] No [ ] Yes Medical Problems (not listed above): None, trigeminal neuralgia Surgical history (not listed above): surgery for trigeminal neuralgia, oophorectomy Physical Limitations: Do You Take [ ] aspirin [ ] Plavix [ ] Coumadin [ ] Other blood thinners/anti- platelet medications List Other Medications (prescription and over the counter including vitamins): CALCIUM LACTATE ORAL; INOSITOL ORAL; cholecalciferol, Vitamin D3, (VITAMIN D) 1,000 unit Tab tablet; ibandronate (BONIVA) 150 mg tablet; senna-docusate (PERICOLACE) 8.6-50 mg per tablet; TEGRETOL 200mg tablet; cyanocobalamin (VITAMIN B-12) 1,000 mcg tablet Medication Allergies: [ ] none [ ] list ___codeine 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 [X] No [ ] Yes Are you nursing? [X] No [ ] Yes Dermatology Resident Surgical Procedure Note Surgeon: CECILIA MERCADO MD Attending Physician: Hardeep Solis MD, PhD Instrument Maintenance Supervisor: Samra Smith LPN BP 112/57 Pulse 52 Resp 18 Ht 149.9 cm (4' 11) Wt 53.524 kg (118 lb) BMI 23.83 kg/m2 Ms. Ramires is a 67 y.o. year old female, referred by myself for the excision of dysplastic nevi on the right and left calf. No changes in health since last visit. Suspected Diagnosis/Previous Biopsy Results: A - Skin, right upper back, shave biopsy: Compound dysplastic nevus with severe atypia, peripheral margins appear negative in the plane of sections examined. Focally involved hair follicle is at the deep biopsy edge. B - Skin, right palm, shave biopsy: Atypical lentiginous junctional melanocytic proliferation, transected at peripheral and deep biopsy edges, (see Comment). C - Skin, right calf, shave biopsy: Compound dysplastic nevus with severe atypia, margins appear negative in the plane of sections examined. D - Skin, left green, shave biopsy: Compound nevus with moderate to severe atypia, margins appear negative in the plane of sections examined. Procedure: A. Left calf Excision of benign lesion, original lesion size: 3 mm Description of Lesion: well healed pink scar left calf Margins: 5 mm Total size: 1 cm Intermediate repair, length 3.9 cm Site: left calf Suture: 4-0 monocryl, 5-0 prolene Anesthesia used: 1% lidocaine with 1:100,000 epinephrine Discussed treatment, expectations, need for follow-up. Informed consent obtained. See CIS for current medications, drug sensitivities and vital signs. Sterile skin prep performed. Local anesthesia: buffered 1% lidocaine with 1/100,000 epinephrine. The excision was designed with clinically clear-appearing margins of at least 0.5 cm in order to remove the lesion. The lesion was excised down to the level of fat. Undermining of wound edges was performed to allow for appropriate approximation. An intermediate closure was required in order to close potential space and to reduce the risk of dehiscence. Hemostasis was achieved. A layered closure was performed. Multiple buried absorbable sutures were placed to reappose deep fat. The epidermis anddermis were reapposed using monofilament suture. There were no complications; the patient tolerated the procedure well. Specimen to Pathology. The wound was dressed. Post-procedure expectations (including discomfort management), wound care and activity restrictions were reviewed. Patient will be notified by letter or phone call of pathology results. B. Right calf Excision of benign lesion, original lesion size: 3 mm Description of Lesion: well healed pink scar Margins: 5 mm Total size: 1 cm Intermediate repair, length 5 cm Site: right calf Suture: 4-0 monocryl, 5-0 prolene Anesthesia used: 1% lidocaine with 1:100,000 epinephrine Discussed treatment, expectations, need for follow-up. Informed consent obtained. See CIS for current medications, drug sensitivities and vital signs. Sterile skin prep performed. Local anesthesia: buffered 1% lidocaine with 1/100,000 epinephrine. The excision was designed with clinically clear-appearing margins of at least 0.5 cm in order to remove the lesion. The lesion was excised down to the level of fat. Undermining of wound edges was performed to allow for appropriate approximation. An intermediate closure was required in order to close potential space and to reduce the risk of dehiscence. Hemostasis was achieved. A layered closure was performed. Multiple buried absorbable sutures were placed to reappose deep fat. The epidermis anddermis were reapposed using monofilament suture. There were no complications; the patient tolerated the procedure well. Specimen to Pathology. The wound was dressed. Post-procedure expectations (including discomfort management), wound care and activity restrictions were reviewed. Patient will be notified by letter or phone call of pathology results. Suture removal: 7 days RTC as scheduled with Primary Bacon Slicer, Cecilia Mercado. CECILIA MERCADO MD Resident in Dermatology Patient was seen and discussed with the Supervising Physician who was present during the procedure: Hardeep Solis MD PhD Section of Dermatology documented in this encounter Miscellaneous Notes * Miscellaneous - Vinod Shafer - 03/25/2012 4:58 PM EDT documented in this encounter Plan of Treatment Upcoming Encounters Date Type Department Care Team (Late st Contact Info) Description 07/07/2024 11:00 AM EDT Office Visit Cardiology at [address] [place] [address] Lorena Lawrence MD [facility] [place] [address] documented as of this encounter Procedures Procedure Name Priority Date/Time Associated Diagnosis Comments SURGICAL PATHOLOGY REPORT Routine 03/20/2012 1:46 PM EDT SPECIMEN TO PATHOLOGY Routine 03/20/2012 9:30 AM EDT Dysplastic nevus documented in this encounter Results * SURGICAL PATHOLOGY REPORT (03/20/2012 1:46 PM EDT) Surgical Pathology Report ? [facility] ? Provider: ?? CECILIA MERCADO ? Pt. Name: ?? HEIKE RAMIRES ? Acc #: ?[id number] ? Pt. ? Col Date: ?? 03/20/2012 ? /Sex: ?1945,(67 years),Female ? Rec Date: ?? 03/20/2012 ? LOC: ?4M ? SURGICAL PATHOLOGY ? ---Pathologic Diagnosis--- ? A - Skin, left calf, excision: ?1. ??Scar, consistent with prior surgical procedure. ?2. ??There is no residual lesion. ?3. Incidental acantholysis. ? B - Skin, right medial calf, excision: ?1. ??Scar, consistent with prior surgical procedure. ?2. ??There is no residual lesion. ? CR-0 ? 03/21/12 ? AJE ? 03/23/12 Verified by: ? Santhosh Mitchell MD ? Dermatopathologist ? (Electronic Signature) ? The attending pathologist whose signature appears on this report has ? reviewed all diagnostic slides and has edited the gross and/or ? microscopic portion of the report in rendering the final pathologic ? diagnosis. ? ---Microscopic Description--- ? Slides reviewed, microscopic description not recorded. ? ---Gross Description--- ? A - Labeled/Fixative: A left calf, formalin. ? Qty/Size/Weight: ?Single, 2.6 x 0.7 x 0.2 cm. ? Tissue Description: ?? Ellipse of centrally nodular, oropeza-white skin. ? Sections/Processing: ??The specimen is inked and serially sectioned. ? The ends are submitted in (1); the remainder of ? the specimen submitted in (2-3). (T3) ? B - Labeled/Fixative: Right medial calf, formalin. ? Qty/Size/Weight: ?Single, 4.3 x 1.0 x 0.3 cm. ? Tissue Description: ?? Ellipse of centrally scarred, pink-oropeza skin. ? Sections/Processing: ??The specimen is inked and serially sectioned. ? The ends are submitted in (1); the remainder of ? the specimen submitted in (2-5). ??(T5) ??aje/EJR ? ---Clinical Information--- ? Specimen Submitted: ? [facility] ? Provider: ?? CECILIA MERCADO ? Pt. Name: ?? HEIKE RAMIRES ? Acc #: ?[id number] ? Pt. ? Col Date: ?? 03/20/2012 ? /Sex: ?1945,(67 years),Female ? Rec Date: ?? 03/20/2012 ? LOC: ?4M ? SURGICAL PATHOLOGY ? A - Skin, left calf, excision (1) ? B - Skin, right medial calf, excision (1) ? Clinical History/Diagnosis: ? A - Dysplastic nevus with severe atypia, see previous path [id number] ? B - Compound dysplastic nevus with moderate to severe atypia, see previous ? path [id number] CERNER MILLENNIUM 03/20/2012 1:46 PM EDT Cecilia Mercado MD PATHOLOGY/CYTOLOGY O BRYAN CERFLY MILLENNIUM * Specimen to Pathology (surgical or derm) (03/20/2012 9:30 AM EDT) AP Specimen 03/20/2012 9:30 AM EDT 03/20/2012 9:30 AM EDT Narrative CERNER MILLENNIUM - 03/20/2012 9:30 AM EDT Specimen requisition ordered. ??Separate Pathology report to follow Hardeep Solis MD PATHOLOGY/CYTOLOGY O BRYAN EFFIE BLUEIUM documented in this encounter Visit Diagnoses Diagnosis Dysplastic nevus- Primary Benign neoplasm of skin, site unspecified documented in this encounter Care Teams Appliance Counselor Relationship Specialty Start Date End Date Henrietta Null MD [facility] [address] [place] [address] PCP - General 12/20/10 05/08/20 documented as of this encounter
--- OUTSIDE RECORDS SUMMARY | 2024-04-23 12:18 | XMS_ITS | Encounter Summary ---
Author Organization [facility] [place] [address] Care Team Providers Care Security And Privacy Consultant Name Role Phone Henrietta Null MD Primary Care Provider [phone] Encounter Details Date Type Department Care Team (Late st Contact Info) Description 02/06/2012 10:04 AM EDT - 02/06/2012 11:59 PM EDT Hospital Encounter XRay at [address] [place] [address] Hand pain Social History Tobacco Use Types Packs/Day Years [...] Take 1 tablet by mouth daily. 01/10/2012 ibandronate (BONIVA) 150 mg tabletIndications:Osteo porosis Take [...] 11:00 AM EDT Office Visit Cardiology at [address] [place] [address] Lorena Lawrence MD [facility] [place] [address] documented as of this encounter Procedures Procedure Name Priority Date/Time Associated Diagnosis Comments XR HAND DIAGNOSTIC MINIMUM 3 VIEWS Routine 02/06/2012 10:36 AM EDT Hand pain documented in this encounter Results * XR hand diagnostic minimum 3 views (02/06/2012 10:36 AM EDT) Anatomical Region Laterality Modality Hand N/A Radiographic Juliet ging 02/06/2012 10:3 6 AM EDT Narrative 02/07/2012 8:46 AM EDT Examination DIAG HAND MIN 3 VIEWS/BILAT Clinical History BILAT PAINFUL TRIGGER FINGERS; Comparison None. Findings Right hand: The bone mineralization is normal. There is joint space narrowing and marginal osteophytes at the interphalangeal joints. There is mild narrowing at the the basil and scaphoid trapezium trapezoid (STT) joint. No soft tissue swelling is present. ??No fractures, dislocations, or subluxations are present. Left Hand: The bone mineralization is normal. There is joint space narrowing and marginal osteophytes at the interphalangeal joint. Additionally, there is more severe joint space narrowing, marginal osteophytes, and subchondral sclerosis at the 1st carpal metacarpal and STT joint. No soft tissue swelling is present. A 3 mm cyst is present in the head of the 3rd metacarpal. No fractures, dislocations, or subluxations are present. Impression ? 1. No acute fractures or other acute osseous abnormality. ? 2. Osteoarthritis. Film and interpretation reviewed by the attending Procedure Note Olivia Alexander MD - 02/07/2012 Examination DIAG HAND MIN 3 VIEWS/BILAT Clinical History BILAT PAINFUL TRIGGER FINGERS; Comparison None. Findings Right hand: The bone mineralization is normal. There is joint spacenarrowing and marginal osteophytes at the interphalangeal joints. There is mildnarrowing at the the basil and scaphoid trapezium trapezoid (STT) joint. No softtissue swelling is present. No fractures, dislocations, or subluxations arepresent. Left Hand: The bone mineralization is normal. There is joint spacenarrowing and marginal osteophytes at the interphalangeal joint. Additionally, thereis more severe joint space narrowing, marginal osteophytes, and subchondral sclerosis at the 1st carpal metacarpal and STT joint. No soft tissueswelling is present. A 3 mm cyst is present in the head of the 3rd metacarpal. No fractures, dislocations, or subluxations are present. Impression 1. No acute fractures or other acute osseous abnormality. 2. Osteoarthritis. Film and interpretation reviewed by the attending Gomez Laboy MD IMG DX ORDERABLES documented in this encounter Visit Diagnoses Diagnosis Hand pain Pain in limb documented in this encounter Care Teams Security And Privacy Consultant Relationship Specialty Start Date End Date Henrietta Null MD [facility] [place] [address] PCP - General 12/20/10 05/08/20 documented as of this encounter
--- OUTSIDE RECORDS SUMMARY | 2024-04-23 12:18 | XMS_ITS | Encounter Summary ---
Author Organization Formerly [facility] [place] [address] Care Team Providers Care Florist Manager Name Role Phone Henrietta Null MD Primary Care Provider [phone] Encounter Details Date Type Department Care Team (Late st Contact Info) Description 02/06/2012 1:30 PM EDT Office Visit [place] [address] Yola Hoffmann, OT [facility] [place] [address] Henrietta Null MD [facility] [place] [address] Trigger fingers, left thumb and ring, right ring (Primary Dx) Discharge Disposition: Home Social History [...] Progress Notes * Yola Louis, OT - 02/07/2012 2:26 PM EDT OCCUPATIONAL THERAPY SPLINTING EVALUATION CERTIFICATION PERIOD: 02/06/12 - 03/25/12 REFERRAL SOURCE: Mushtaq Mann PA-C ATTENDING: Dr. Gomez Laboy DIAGNOSIS: 1. Trigger fingers, left thumb and ring, right ring (727.03B) DATE OF INJURY: Onset of symptoms approximately 6 months ago DATE OF SURGERY: none NEXT MD FOLLOW UP: 03/25/12 TOTAL TREATMENT TIME: 30 Minutes TIMED CODE TREATMENT TIME: Ortho management training 30 minutes CURRENT HISTORY: Heike Ramires is a 67 y.o. 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 Patient reported [...] from overuse. Current Symptoms: Patient presents with pain and periodic locking in her left thumb and right ring finger. 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 HAND DOMINANCE: Right PAIN: At Rest: 0/10 With Activity: 6-7/10 FUNCTIONAL LIMITATIONS: Heike Ramires identifies difficulty with the following tasks: 1.) Repetitive gripping when cleaning I can clean, however, when my fingers locks it is very painful./10 *Patient Specific Functional Scale (PSFS): 0/10 (unable to perform) to 10/10 (Able to perform without difficulty). TREATMENT TODAY: Educated patient in etiology and biomechanics as related to patient's symptoms Fabricated left short opponens including IP joint of thumb, gutter splints for her right ring finger and left ring finger Instructed patient in splint wear and care Educate patient and benefits of icing along affected fingers ASSESSMENT: Heike Ramires presents today with mild functional limitations due to increased pain from more consistent triggering in left thumb and ring fingers as well as right ring finger. Patienthas a well fitting splint post therapy. Heike Ramires is able to demonstrate competence with donning of splints following instructions provided today. Heike Ramires has goo potential for gains with therapy. Patient knows to call with any questions or concerns. [employer] Machine Operator Goals (to be met by discharge): [...] 6 week(s) to progress toward short and jail goals. Soft tissue mobilization as therapeutically necessary [...] AM EDT Office Visit Cardiology at [address] [place] [address] Lorena Lawrence MD [facility] [place] [address] documented as of this encounter Visit Diagnoses Diagnosis Trigger fingers, left thumb and ring, right ring- Primary Trigger finger (acquired) documented in this encounter Care Teams Florist Manager Relationship Specialty Start Date End Date Henrietta Null MD [facility] [address] [facility] [place] [address] [place] [address] PCP - General 12/20/10 05/08/20 documented as of this encounter
--- OUTSIDE RECORDS SUMMARY | 2024-04-23 12:18 | XMS_ITS | Encounter Summary ---
Author Organization [facility], [facility] [place] [address] Care Team Providers Care Hub Lead Name Role Phone Henrietta Null MD Primary Care Provider [phone] Reason for Visit * Reason Comments Follow-up Encounter Details Date Type Department Care Team (Late st Contact Info) Description 02/07/2012 4:00 PM EDT [place] [address] Cecilia Mercado MD [facility] [address] Skin lesion (Primary Dx); Neoplasm of unspecified nature of bone, soft tissue, and skin; Seborrheic keratosis Discharge Disposition: Home Social History Tobacco [...] Progress Notes * Abigail Munroe MD - 02/12/2012 5:46 PM EDT I directly supervised Dr. Mercado during this office visit. Dr. Mercado presented the history and physical exam to me. I then saw and examined this patient with Dr. Mercado. We reviewed the history and pertinent details and I confirmed the physical findings. I agree with the details of the history and physical exam as documented in Dr. Mercado's note. * Cecilia Mercado MD - 02/07/2012 4:45 PM EDT DERMATOLOGY - ESTABLISHED PATIENT FOLLOW-UP Date of service: 02/07/2012 Heike Ramires : 1945 Dermatology Resident Note: Cecilia Mercado MD Chief Problem: Chief Complaint Patient presents with ??? Follow-up Ms. Heike Ramires is a 67 y.o. female. This is an established patient, last seen by me on 01/31/2012. HPI: Ms. Ramires presents for full skin exam and follow up severely atypical melanocytic proliferation onher foot. She has concerns about many other dark macules on her legs and right palm that have come up in the last few months. These are asymptomatic, but the fact that they are new concern her. Thereis no personal or family history of melanoma, however, she does spend much time in the sun and has had numerous sun morales in her past. None of the lesions of concern have been treated in the past. She has an appointment set for complete excision of her atypical lesion in February. Skin History: Skin, left dorsal foot, shave biopsy 01-31-12: Severely atypical lentiginous and nested junctional melanocytic proliferation in sun-damaged skin (complete excision planned) Medical History: Patient Active Problem List Diagnoses Code ??? Ovarian fibroma 220EA ??? Osteoporosis 733.00C ??? Trigeminal neuralgia 350.1 ??? Preventative health care V70.0C ??? Trigger fingers, left thumb and ring, right ring 727.03B Medications: Current outpatient prescriptions ordered prior to [...] mcg tablet Allergies: Allergies Allergen Reactions ??? Oxidized Glycerol Triesters headache ??? Methadone Hcl headaches ??? Morphine Sulfate Nausea/Vomiting ??? Codeine Phos stomach ache ??? Oxycodone Hcl severe headaches Family History: No family history of melanoma or non-melanoma skin cancer Social History: , lives in [facility], loves spending time outdoors Review of [...] Genitalia were not examined. Specific skin findings: A. 0.4 cm irregular brown macule-right upper back. B.0.2 cm irregular brown macule-right palm. C.0.3 cm irregular brown macule-right calf. D. 0.2 cm irregular brown macule-left green. E.Multiple scattered- 0.4-0.6 cm brown papules with waxy, stuck on appearance. Diagnosis/Assessment/Treatment Plan: A-D: neoplasms of unknown behavior, dysplastic nevi r/o melanoma: discussed that these lesions haveatypical features including dark nature and new onset, therefore recommended shave biopsy in officetoday. Patient agreed to the procedures after discussing risks/benefits/alternatives. Time out performed Procedures: Skin biopsies Number: 4 Location: A. Right upper back B. Right palm C. Right calf D. Left green Discussed indications for procedures and expectations including risks and benefits. Verbal consent obtained. Skin prep with alcohol. Local anesthesia with 1% xylocaine, 1/100,000 epinephrine, 0.1 mEq/mL bicarbonate. A sample of the lesions removed by shave technique to the level of the dermis and submitted to Pathology. Hemostasis obtained (AlCl and/or electrocautery). There were no complications; the pt. tolerated the procedures well. The wounds were dressed. Post-procedure expectations, woundcare and activity restrictions were reviewed. Follow-up based on pathology results. E. Seborrheic keratoses: discussed benign nature of lesion and provided reassurance. No treatment necessary at this time. RTC based on pathology, 6 months minimum for repeat skin check. Instructed to call for questions/concerns. Cecilia Mercado MD Resident in Dermatology [facility] Patient seen and evaluated with staff doctor of pharmacy: Abigail Munroe MD Section of Dermatology [facility] documented in this encounter Plan of Treatment Upcoming Encounters Date Type Department Care Team (Late st Contact Info) Description 07/07/2024 11:00 AM EDT Office Visit Cardiology at [address] [place] [address] Lorena Lawrence MD [facility] [place] [address] Scheduled Orders Name Type Priority Associated Diagnoses Orde r Schedule Skin Biopsy Dermatology Routine Skin lesion Ordered: 02/07/2012 documented as of this encounter Procedures Procedure Name Priority Date/Time Associated Diagnosis Comments SURGICAL PATHOLOGY REPORT Routine 02/07/2012 5:44 PM EDT SPECIMEN TO PATHOLOGY (NON-OR) Routine 02/07/2012 5:00 PM EDT Skin lesion documented in this encounter Results * SURGICAL PATHOLOGY REPORT (02/07/2012 5:44 PM EDT) Surgical Pathology Report ? [facility] ? Provider: ?? CECILIA MERCADO ? Pt. Name: ?? HEIKE RAMIRES ? Acc #: ?[id number] ? Pt. ? Col Date: ?? 02/07/2012 ? /Sex: ?1945,(67 years),Female ? Rec Date: ?? 02/07/2012 ? LOC: ?4M ? SURGICAL PATHOLOGY ? ---Pathologic Diagnosis--- ? A - Skin, right upper back, shave biopsy: ? Compound dysplastic nevus with severe atypia, peripheral margins appear ? negative in the plane of sections examined. ? Focally involved hair follicle is at the deep biopsy edge. ? B - Skin, right palm, shave biopsy: ? Atypical lentiginous junctional melanocytic proliferation, transected ? at peripheral and deep biopsy edges, (see Comment). ? C - Skin, right calf, shave biopsy: ? Compound dysplastic nevus with severe atypia, margins appear negative ? in the plane of sections examined. ? D - Skin, left green, shave biopsy: ? Compound nevus with moderate to severe atypia, margins appear negative ? in the plane of sections examined. ? Dictated by: ??Nimisha Castillo, DO ? Dermatopathology Fellow ? As the attending physician, I attest that I examined the histologic slides, ? and confirm Dr. Nimisha Castillo's diagnosis. ? CR-0 ? 02/09/12 ? AJE ? 02/17/12 Verified by: ? Zechariah MD, Airam E. ? Dermatopathologist ? (Electronic Signature) ? The attending pathologist whose signature appears on this report has ? reviewed all diagnostic slides and has edited the gross and/or ? microscopic portion of the report in rendering the final pathologic ? diagnosis. ? ---Comment--- ? B - Right palm: ??The stratum corneum is thick and comprises much of this ? shave biopsy, and the underlying lesion is transected. ??The epidermis shows ? a lentiginous single and nested proliferation of melanocytes, which are ? enlarged and have cytologic atypia. ??While this may represent a portion of ? an atypical nevus, the architecture cannot be assessed, and there is not ? enough lesion to evaluate for ? [facility] ? Provider: ?? CECILIA MERCADO ? Pt. Name: ?? HEIKE RAMIRES ? Acc #: ?[id number] ? Pt. ? Col Date: ?? 02/07/2012 ? /Sex: ?1945,(67 years),Female ? Rec Date: ?? 02/07/2012 ? LOC: ?4M ? SURGICAL PATHOLOGY ? diagnosis or to exclude a more atypical lesion. ??Therefore, complete ? removal and further histologic evaluation of the entire lesion is ? recommended for diagnosis. ? A-D: Drs. Mitchell and Ray also examined these biopsies and concur with ? the interpretations. ? ---Microscopic Description--- ? Slides reviewed, microscopic description not recorded. ? ---Gross Description--- ? A - Labeled/Fixative: A, formalin. ? Qty/Size/Weight: ?Single shave, 0.7 x 0.5 cm, white, wrinkled, ? unoriented, with a central, 0.3-cm, ill-defined, ? brown, finely granular macule. ? Sections/Processing: ??Inked. ??Trisected. ??(T1) ? B - Labeled/Fixative: B, formalin. ? Qty/Size/Weight: ?Single shave, 0.4 cm, white, unoriented, with a ? central, 0.2-cm, brown, finely granular macule. ? Sections/Processing: ??Inked. ??Bisected. ??(T1) ? C - Labeled/Fixative: C, formalin. ? Qty/Size/Weight: ?Single shave, 0.5 cm, white, unoriented, with a ? central, 0.2-cm, brown, slightly raised lesion. ? Sections/Processing: ??Inked. ??Bisected. ??(T1) ? D - Labeled/Fixative: D, formalin. ? Qty/Size/Weight: ?Single shave, 0.5 x 0.3 cm, white, unoriented, with a ? central, 0.2-cm, irregularly bordered, dark brown to ? black macule. ? Sections/Processing: ??Inked. ??Bisected. ??(T1) aje/SHB ? ---Clinical Information--- ? Specimen Submitted: ? A - Skin, right upper back, shave (1) ? B - Skin, right palm, shave (1) ? C - Skin, right calf, shave (1) ? D - Skin, left green, shave (1) ? Clinical History/Diagnosis: ? A - 0.4-cm, irregular, brown macule / DN R/O MM ? [facility] ? Provider: ?? CECILIA MERCADO ? Pt. Name: ?? HEIKE RAMIRES ? Acc #: ?[id number] ? Pt. ? Col Date: ?? 02/07/2012 ? /Sex: ?1945,(67 years),Female ? Rec Date: ?? 02/07/2012 ? LOC: ?4M ? SURGICAL PATHOLOGY ? B - 0.2-cm, irregular, brown macule / DN R/O MM ? C - 0.3-cm, irregular, brown macule / DN R/O MM ? D - 0.2-cm, irregular, brown macule / DN R/O MM [facility] 02/07/2012 5:44 PM EDT Cecilia Mercado MD PATHOLOGY/CYTOLOGY O RDERABLES [facility] * Specimen to Pathology (NON-OR) (02/07/2012 5:00 PM EDT) AP Specimen 02/07/2012 5:00 PM EDT 02/07/2012 5:01 PM EDT Narrative EFFIE SEBASTIAN - 02/07/2012 5:01 PM EDT Specimen requisition ordered. ??Separate Pathology report to follow Abigail Munroe MD PATHOLOGY/CYTOLOGY O RDERABLES EFFIE SEBASTIAN documented in this encounter Visit Diagnoses Diagnosis Skin lesion- Primary Unspecified disorder of skin and subcutaneous tissue Neoplasm of unspecified nature of bone, soft tissue, and skin Seborrheic keratosis Other seborrheic keratosis documented in this encounter Care Teams Hub Lead Relationship Specialty Start Date End Date Henrietta Null MD [facility] [place] [address] PCP - General 12/20/10 05/08/20 documented as of this encounter
--- OUTSIDE RECORDS SUMMARY | 2024-04-23 12:18 | XMS_ITS | Encounter Summary ---
Author Organization [facility] [place] [address] Care Team Providers Care Chemical Tester Name Role Phone Henrietta Null MD Primary Care Provider [phone] Reason for Visit * Reason Comments Other followup on choleste rol Trigger Finger followup Encounter Details Date Type Department Care Team (Late st Contact Info) Description 02/07/2012 11:00 AM EDT Follow-Up Internal Medicine at [address] [address] Henrietta Null MD [facility] [place] [address] Hyperlipidemia (Primary Dx); Osteoporosis Discharge Disposition: Home Social History Tobacco [...] Sign Reading Time Taken Comments Blood Pressure 109/55 02/07/2012 11:02 AM EDT Pulse 55 02/07/2012 11:02 AM EDT Temperature - - Respiratory Rate - - Oxygen Saturation - - Inhaled Oxygen Concentration - - Weight 55.3 kg (122 lb) 02/07/2012 11:02 AM EDT Height - - Body Mass Index 24.85 02/06/2012 12:57 PM EDT documented in this encounter Patient Instructions * Patient Instructions* Henrietta Null MD - 02/07/2012 11:39 AM EDT [facility] High Cholesterol: After Your Visit Your Care Instructions Cholesterol is a type of fat in your blood. It is needed for many body functions, such as making new cells. Cholesterol is made by your body and also comes from food you eat. High cholesterol means that you have too much of the fat in your blood. LDL and HDL are part of your total cholesterol. LDL is the bad cholesterol that builds up inside the blood vessel urena, making them too narrow. This reduces the flow of blood and can cause a heartattack or stroke. HDL is the good cholesterol that helps clear bad cholesterol from the body. Youwant your good cholesterol to be high and your bad cholesterol to be low. If you do this, you can reduce your chance of having a heart attack or a stroke. You can improve your cholesterol levels by eating less animal and trans fat and more vegetables. Getting regular exercise can also help. But for some people, cholesterol problems run in the family. If changes in diet and exercise don't improve your cholesterol levels, talk to your doctor about using medicine. Follow-up care is a [place] part of your treatment and safety. Be sure to make and go to all appointments, and call your doctor if you are having problems. It???s also a good idea to know your test results and keep a list of the medicines you take. How can you care for yourself at home? ?? Eat a variety of foods every day. Good choices include fruits, vegetables, whole grains (like oatmeal), dried beans and peas, nuts and seeds, soy products (like tofu), and fat-free or low-fat dairy products. ?? Replace butter, margarine, and hydrogenated or partially hydrogenated oils with olive and canolaoils. (Canola oil margarine without trans fat is fine.) ?? Replace red meat with fish, poultry, and soy protein (like tofu). ?? Limit processed and packaged foods like chips, crackers, and cookies. ?? Bake, broil, or steam foods instead of frying them. ?? Limit foods high in cholesterol, such as egg yolks. ?? Be physically active. Exercise increases your HDL, or good cholesterol level. Get at least 30 minutes of exercise on most days of the week. Walking is a good choice. You also may want to do other activities, such as running, swimming, cycling, or playing tennis or team sports. ?? Stay at a healthy weight or lose weight by making the changes in eating and physical activity presented above. Losing just a small amount of weight, even 5 to 10 pounds, can reduce your risk for having a heart attack or stroke. When should you call for help? Watch closely for changes in your health, and be sure to contact your doctor if: ?? You need more help controlling your cholesterol. Where can you learn more? Visit our health information library at [email or web address]. You can alsoview health information on [employer], your personal patient account. Log in or sign up today. Enter I865 in the search box to learn more about High Cholesterol: After Your Visit. ?? [phone] [facility]. Care instructions adapted under license by [facility]. This care instruction is for use with your licensed healthcare professional. If you have questions about a medical condition or this instruction, always ask your healthcare professional. [facility] disclaims any warranty or liability for your use of this information. Content Version: 9.1.378325; Last Revised: January 02, 2010 documented in this encounter Progress Notes * Henrietta Null MD - 02/07/2012 12:36 PM EDT ESTABLISHED PATIENT FOLLOW-UP VISIT Pt is a 67 y.o. female who presents for scheduled follow up visit. Issues include: 1. Hyperlipidemia - recent lipids below, since our phone discussion, pt has changed diet dramatically, has lost 4 lbs. Avoiding red meat, starches. Has been able to improve lipids in past. Lab Results Component Value Date CHLPL 258* 01/10/2012 HDL 67 01/10/2012 TRIG 131 01/10/2012 LDLCHOL 165* 01/10/2012 2. Pre-malignant lesion - removed from foot, has f/up appt for full body skin check today, also hasadditional surgery planned for site on foot. 3. Trigger finger - went to see ortho, will try OT for now, has seen them and will be following up next week. 4. Osteoporosis - on boniva, recent labs with mildly low vit D, and nl calcium and PTH (prev PTH high). Is now on higher dose of vitamin D 1000 qd. ROS: Constitutional - no fevers, chills, weight [...] new weakness, pain at rest or with movement. Skin - no new rashes, All other systems negative Current outpatient prescriptions ordered prior to encounter [...] ??? cyanocobalamin (VITAMIN B-12) 1,000 mcg tablet Patient Active Problem List Diagnoses Code ??? Ovarian fibroma 220EA ??? Osteoporosis 733.00C ??? Trigeminal neuralgia 350.1 ??? Preventative health care V70.0C ??? Trigger fingers, left thumb and ring, right ring 727.03B Physical Exam: Filed Vitals: 02/07/12 1102 BP: 109/55 Pulse: 55 Weight: 55.339 kg (122 lb) General - No acute distress. Assessment and Plan: Hyperlipidemia - calculated 10 year risk using Rover data - only 2%. Pt will continue the excellent diet changes she has already instituted and we will check levels in 2 months. - Lipid panel (fasting); Future Trigger fingers - cont OT, f/up with hand surgery as needed. Pre-melanotic lesion - f/up with derm. Osteoporosis - cont boniva, ca/vit D for period of 5 years total. Cont higher dose of vit D. documented in this encounter Plan of Treatment Upcoming Encounters Date Type Department Care Team (Late st Contact Info) Description 07/07/2024 11:00 AM EDT Office Visit Cardiology at [address] [place] [address] Lorena Lawrence MD [facility] [place] [address] documented as of this encounter Results * (ABNORMAL) Lipid panel (fasting) (03/20/2012 10:49 AM EDT) Chol, Total 238(H) <=199 mg/dL [facility] Comment: Recommendations of the NCEP Adult Treatment Panel for the following risk cutoff thresholds for the [place] population: Desirable: <200 mg/dL Borderline High: 200-239 mg/dL High: > or = 240 mg/dL Triglycerides 120 <=149 mg/dL [facility] Comment: Reference Range: Normal triglycerides: ??<150 mg/dL Borderline high: ??150-199 mg/dL High: ??200-499 mg/dL Very high: ??>da=400 mg/dL THANIA 2001; 285(19):8520-8305 HDL 57 >=40 mg/dL [facility] Comment: Reference range: ??Low HDL: ?? < 40 mg/dL ??Normal: ?40-60 mg/dL ??Desirable: > 60 mg/dL THANIA 2001; 285(19):1786-7363 LDL Cholesterol 157(H) <=99 mg/dL [facility] Comment: Reference range: ?? Optimal: ?<100 mg/dL ?? Near Optimal/Above Optimal: ?? 100-129 mg/dL ?? Borderline high: ?130-159 mg/dL ?? High: ? 160-189 mg/dL ?? Very high: ?>zt=898 mg/dL THANIA 2001: 285(19):6392-5671 Chol/HDL Ratio 4.2 ratio [facility] Comment: A Cholesterol to HDL ratio below 4:1 is desirable. ??Studies suggest that increased CAD risk occurs at ratios above 5 for females and above 6 for men. ? [place] Heart Association ??(http://www.americanheart.org) ? Airam Int Med, 1994; 121:641 ? AM J Med, 1998; 105(1A):48S Blood specimen (specimen) 03/20/2012 10:49 AM EDT 03/20/2012 12:10 PM EDT Narrative Resulting Agency Comment Spec In Lab Henrietta Null MD CHEMISTRY ORDERABLES Performing Organization Address City/State/[facility] Co sd Phone Number [facility] documented in this encounter Visit Diagnoses Diagnosis Hyperlipidemia- Primary Other and unspecified hyperlipidemia Osteoporosis Osteoporosis, unspecified documented in this encounter Care Teams Chemical Tester Relationship Specialty Start Date End Date Henrietta Null MD [facility] [place] [address] PCP - General 12/20/10 05/08/20 documented as of this encounter
--- OUTSIDE RECORDS SUMMARY | 2024-04-23 12:18 | XMS_ITS | Encounter Summary ---
Author Organization [facility] [place] [address] Care Team Providers Care Reservoir Engineering Advisor Name Role Phone Henrietta Null MD Primary Care Provider [phone] Reason for Visit * Reason Comments Suture / Staple Removal Encounter Details Date Type Department Care Team (Latest Contact Info) Description 03/27/2012 10:00 AM EDT Clinical [place] [address] DERMATOLOGY, NURSE Visit for suture removal (Primary [...] as of this encounter Progress Notes * Kareem Saucedo LPN - 03/27/2012 4:28 PM EDT Heike Ramires 03/27/2012 Suture Removal 1. Here for scheduled suture removal 2. Post excision for atypical nevi, right calf, left green History: Patient has had no problems or concerns since the procedure. Examination: Wound edges show good apposition and a healthy wound. No sign of infection or dehiscence. Diagnosis: 1. Post excision of atypical nevi, right calf, left green, here for suture removal Plan: 1. Sutures removed without complication. 2. Steri-strips placed 3. To call if further questions or concerns arise. KAREEM SAUCEDO LPN documented in this encounter Plan of Treatment Upcoming Encounters Date Type Department Care Team (Late st Contact Info) Description 07/07/2024 11:00 AM EDT Office Visit Cardiology at [address] [place] [address] Lorena Lawrence MD [facility] [place] [address] documented as of this encounter Visit Diagnoses Diagnosis Visit for suture removal- Primary Encounter for removal of sutures documented in this encounter Care Teams Reservoir Engineering Advisor Relationship Specialty Start Date End Date Henrietta Null MD [facility] [address] [place] [address] PCP - General 12/20/10 05/08/20 documented as of this encounter
--- OUTSIDE RECORDS SUMMARY | 2024-04-23 12:18 | XMS_ITS | Encounter Summary ---
Author Organization [facility] [place] [address] Care Team Providers Care Vice President Tax Name Role Phone Henrietta Null MD Primary Care Provider [phone] Reason for Referral * Occupational Therapy (Routine) - Closed Specialty Diagnoses / Procedures Referred By Evelio mathis Referred To Contact Occupational Therapy Diagnoses Trigger finger [facility] [address] [place] [address] [facility] [place] [address] Referral ID Status Reason Start Date Expiration Date V isits Requested Visits Authorized [id number] Closed Evaluate and Treat 02/06/2012 08/04/2012 1 1 Reason for Visit * Reason Comments Bilateral Hand Pain BILATERAL HAND/ TRIG ARMANDO FINGERS. Encounter Details Date Type Department Care Team (Late st Contact Info) Description 02/06/2012 1:00 PM EDT Office [place] [address] Mushtaq Mann PA [facility] [place] [address] Trigger fingers, left thumb and ring, right [...] Sign Reading Time Taken Comments Blood Pressure 109/56 02/06/2012 12:57 PM EDT Pulse 63 02/06/2012 12:57 PM EDT Temperature 36.5 ??C (97.7 ??F) 02/06/2012 12:57 PM E DT Respiratory Rate - - Oxygen Saturation - - Inhaled Oxygen Concentration - - Weight 56.7 kg (125 lb) 02/06/2012 12:57 PM EDT Height 149.2 cm (4' 10.75) 02/06/2012 12:57 PM EDT Body Mass Index 25.46 02/06/2012 12:57 PM EDT documented in this encounter Progress Notes * Mushtaq Mann PA - 02/06/2012 1:22 PM EDT HISTORY OF PRESENT ILLNESS: 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 She has not done any therapy, splinting, or injections. They do not awaken her at night. They are becoming more painful and uncomfortable. She denies injuries. She denies alcoholism, Dilantin use, seizure disorder, reflux, thyroid disease, or diabetes. She is becoming frustrated with this, as they become quite painful, especially her left thumb when it locks in the down position. She is otherwise quite active. MEDICATIONS: Her medications are reviewed and include Tegretol for tic douloureux. ALLERGIES: HER ALLERGIES ARE POSITIVE FOR CODEINE AND MORPHINE. MEDICAL HISTORY: Her medical conditions include her history of tic douloureux, as well as ovarian fibroma, osteoporosis, and trigeminal neuralgia. SURGICAL HISTORY: Her surgical history is positive for microvascular decompression and partial hysterectomy. SOCIAL HISTORY: She is a nonsmoker and nondrinker. She exercises to include various activity. She does not need assistance with daily activities. FAMILY HISTORY: Her family history is positive for cancer, epilepsy, and lupus. REVIEW OF SYSTEMS: Her review of systems is negative for fevers, chills, headaches, vision change, chest pain, shortness of breath, bowel or bladder issue, skin, neurologic, or psychiatric disorder. PHYSICAL EXAMINATION: Awake, alert, and oriented x3, in no acute distress, resting comfortably in exam room. Pleasant woman with appropriate affect and demeanor for today's visit. She is afebrile and hemodynamically stable. Bilateral forearms, wrists, and hands are normal in appearance without overlying erythema, edema, or ecchymosis. No bogginess, fluctuance, drainage, or break in the skin whatsoever is seen to either wrist. The Bilateral wrists have an excellent range of motion to flexion, extension, pronation, supination, and elbow range of motion is normal. The sensation is normal. Capillary refill is less than 2 seconds. Pulses are 2+. Cardiovascular status is normal. Bilateral pinch and gold leaf laborer are normal. Resting finger cascade is normal in appearance. FDS, FDP, EPL, FPL, and thumb adduction are normal. There is a negative Froment sign, negative Wartenberg sign, and intrinsics and extrinsics are inormal. Phalen's exam was negative Tinel's exam was negative Durkan compression test was negative Belle's test was negative. There is Negative tenderness to percussion over the wrist. Triggering is present at the right ring and left ring and thumb digits. There are tender nodules atthe level of the A-1 pulleys of these digits. IMAGING STUDIES: Imaging studies were obtained today and they are grossly benign with the exception of some basal joint arthritis, which is not causing her any discomfort at this point. It is more severe on the left versus right. ASSESSMENT: Assessment is bilateral trigger fingers as described above. PLAN: We discussed treatment options from least to most invasive to include hand therapy, cortisone injections, and possible surgery. She would like to start with hand therapy, which is fine. I will see her in follow up in approximately six weeks for followup. We will start with splinting and therapy with modality. She understands and agrees. Her questions were solicited and answered. CC: Henrietta Null M.D. [facility] documented in this encounter Plan of Treatment Upcoming Encounters Date Type Department Care Team (Late st Contact Info) Description 07/07/2024 11:00 AM EDT Office Visit Cardiology at [address] [place] [address] Lorena Lawrence MD [facility] [place] [address] Scheduled Referrals Name Type Priority Associated Diagnoses Order Schedule REFERRAL TO OCCUPATIONAL THERAPY Outpatient Referral Routine Trigger fingers, left thumb and ring, right ring Ordered: 02/06/2012 documented as of this encounter Visit Diagnoses Diagnosis Trigger fingers, left thumb and ring, right ring- Primary Trigger finger (acquired) documented in this encounter Care Teams Vice President Tax Relationship Specialty Start Date End Date Henrietta Null MD [facility] [address] [place] [address] [place] [address] PCP - General 12/20/10 05/08/20 documented as of this encounter
--- OUTSIDE RECORDS SUMMARY | 2024-04-23 12:18 | XMS_ITS | Encounter Summary ---
Author Organization [facility] [place] [address] Care Team Providers Care Government Teacher Name Role Phone Henrietta Null MD Primary Care Provider [phone] Encounter Details Date Type Department Care Team (Late st Contact Info) Description 01/13/2012 9:00 AM EDT Office [place] [address] NURSE, Mignon Loaiza MD [facility] [place] [address] Healthcare maintenance (Primary Dx) Discharge Disposition: Home Social History [...] as of this encounter Progress Notes * Anayeli Asher RN - 01/13/2012 10:19 AM EDT Heike Ramires received 0.65 cc SC to left arm- Zostavax Vaccine once today to prevent the Shingles. Pt tolerated this well. [facility]# [id number]. Lot # [id number]. documented in this encounter Plan of Treatment Upcoming Encounters Date Type Department Care Team (Late st Contact Info) Description 07/07/2024 11:00 AM EDT Office Visit Cardiology at [address] [place] [address] Lorena Lawrence MD [facility] [place] [address] documented as of this encounter Visit Diagnoses Diagnosis Healthcare maintenance- Primary Routine general medical examination at a health care facility documented in this encounter Care Teams Government Teacher Relationship Specialty Start Date End Date Henrietta Null MD [facility] [address] [place] [address] [place] [address] PCP - General 12/20/10 05/08/20 documented as of this encounter
--- OUTSIDE RECORDS SUMMARY | 2024-04-23 12:18 | XMS_ITS | Encounter Summary ---
Author Organization [facility] [address] Care Team Providers Care Store Manager Name Role Phone Henrietta Null MD Primary Care Provider Reason for Referral * Consultation (Routine) - Closed Specialty Diagnoses / Procedures Referred By Contac t Referred To Contact Dermatology Diagnoses Skin lesion Henrietta Null MD [facility] [place] [address] [facility] [address], [place] [address] Referral ID Status Reason Start Date Expiration Date V isits Requested Visits Authorized [id number] Closed Consult, Test & Treat 01/10/2012 07/08/2012 1 1 * Surgical (Routine) - Closed Specialty Diagnoses / Procedures Referred By Contact Referred To Contact Hand Surgery / Orthopaedics Diagnoses Trigger thumb Henrietta Null MD [facility] [place] [address] [facility] [address] [place] [address] Referral ID Status Reason Start Date Expiration Date V isits Requested Visits Authorized [id number] Closed Consult, Test & Treat 01/10/2012 07/08/2012 1 1 Reason for Visit * Reason Comments Annual Exam Encounter Details Date Type Department Care Team (Late st Contact Info) Description 01/10/2012 10:20 AM EDT Office Visit Internal Medicine at [address] [address] Henrietta Null MD [facility] [place] [address] Osteopenia; Trigger thumb; Preventative health care; Hyperparathyroidism; Skin lesion Discharge Disposition: Home Social History Tobacco Use [...] Sign Reading Time Taken Comments Blood Pressure 133/67 01/10/2012 10:16 AM EDT Pulse 63 01/10/2012 10:16 AM EDT Temperature - - Respiratory Rate 15 01/10/2012 10:16 AM EDT Oxygen Saturation - - Inhaled Oxygen Concentration - - Weight 57.2 kg (126 lb) 01/10/2012 10:16 AM EDT Height 149.9 cm (4' 11) 01/10/2012 10:16 AM EDT Body Mass Index 25.45 01/10/2012 10:16 AM EDT documented in this encounter Progress Notes * Henrietta Null MD - 01/13/2012 7:22 AM EDTQuick Note: Reviewed by telephone that PTH is now in normal range and that there is no need for pt to collect 24 george urine calcium Unclear why there would be this change. Vit D level is slighltylow and pt to restart her daily vit d at 1000 qd. Discussed elevated lipids. Pt adverse to starting medication. Wouldlike to try diet first. * Henrietta Null MD - 01/11/2012 7:31 AM EDT ANNUAL PHYSICAL I. HISTORY Reason(s) for Visit: Here for annual exam with review of his acute and chronic medical issues. In general has felt well. Medical Issues include: 1. Trigeminal neuralgia - recent eval at [facility] for second opinion. No new recommendations, told herdefinitely not to pursue another surgery. Is now taking inositol at recommendation of chiropracter.MD in [facility] felt this was reasonable, was able to decrease her tegretol dose down to 4 tabs/day withthe inositol 2. Osteoporosis - on boniva. Labs in the summer revealed that PTH 111, nl ca, nl tsh., vit D 28. Isnot longer taking vit D, changed to another form of calcium tablet. 3. Ovarian fibroma - underwent resection 2 years ago with BSO. No further abdominal pain. 4 L thumb discmort - locks up, + stiffness, sometimes feels similar in other finger joints. ROS: Constitutional - no fevers, chills, weight stable, + fatigue for past 5-6 months, no sleep problems HEENT - No difficulty [...] night sweats All other systems negative PREVENTION ??? Preventative health care DT: Tdap 12/13/08 (from scanned pcp records in [facility]) Pneumovax: 2010 Influenza:2011 Shingles: Cigarettes: none Alcohol: none Caffeine:little Exercise: [...] Chew History Social History Narrative Lives in [place], with her . 4 children ([facility], [facility], nearby). 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 Enjoying cooking, gardening, swimming, making porcelain [...] and updated II. PHYSICAL EXAM: Filed Vitals: 01/10/12 1016 BP: 133/67 Pulse: 63 Resp: 15 Height: 149.9 cm (4' 11) Weight: 57.153 kg (126 lb) General - Comfortable, no apparent distress. ENT [...] edema. Joints with bony hypertrophy at DIP/PIP. + triggering at thumb. Skin - + hyperpigmented lesion R mid foot. No rashes. Nodes - Negative x cervical [...] - check dexa, check vit D level and plan to restart. - cholecalciferol, Vitamin D3, (VITAMIN D) 1,000 unit Tab tablet; Take 1 tablet by mouth daily. - *Dexa generic bone densitometery/scan; Future - VIT D Total Evaluation; Future Trigger thumb - continued symptoms - referral to surgery - REFERRAL TO HAND CLINIC Hyperparathyroidism - likely primary disease - - Calcium, urine, 24 hour; Future - PTH; Future - Calcium; Future Skin lesion - - REFERRAL TO DERMATOLOGY Trigeminal Neuralgia - stable on lower dose of tegretol, recent tegretol level at therapeutic level. Will cont to follow. Prevention Screening Colon Cancer UTD, repeat 2019 Cholesterol check Diabetes utd Breast Cancer Mammogram utd Cervical Cancer UTD Osteoporosis Check Immunizations Tetanus [place] Pneumovax [place] Shingles refer documented in this encounter Plan of Treatment Upcoming Encounters Date Type Department Care Team (Late st Contact Info) Description 07/07/2024 11:00 AM EDT Office Visit Cardiology at [address] [place] [address] Lorena Lawrence MD [facility] [place] [address] Scheduled Referrals Name Type Priority Associated Diagnoses Order Schedule REFERRAL TO HAND CLINIC Outpatient Referral Routine Trigger thumb Ordered: 01/10/2012 REFERRAL TO DERMATOLOGY Outpatient Referral Routine Skin lesion Ordered: 01/10/2012 documented as of this encounter Procedures Procedure Name Priority Date/Time Associated Diagnosis Comments PTH Routine 01/10/2012 11:28 AM EDT Hyperparathyroidism VITAMIN D, 25-HYDROXY Routine 01/10/2012 11:28 AM EDT Osteopenia CALCIUM Routine 01/10/2012 11:28 AM EDT Hyperparathyroidism LIPID PANEL (REFLEX DIRECT LDL) Routine 01/10/2012 11:28 AM EDT Preventative health care documented in this encounter Results * (ABNORMAL) VIT D Total Evaluation (01/10/2012 11:28 AM EDT) 25-OH Vit D Total 27(L) 30 - 100 ng/mL [facility] Comment: Deficient <10 ng/mL Insufficient 10 [...] a total Vitamin D concentration is reported. Please note, the performing location for this test has changed. ??As of 11/05/2011 the Vitamin D Total, 25 Hydroxy assays are being analyzed by the [facility]. ??There is NO CHANGE in units. ??Please contact the chemistry laboratory at [phone] with questions. Blood specimen (specimen) 01/10/2012 11:28 AM EDT 01/10/2012 6:14 PM EDT Narrative Resulting Agency Comment Spec In Lab Henrietta Null MD CHEMISTRY ORDERABLES EFFIE SEBASTIAN * (ABNORMAL) Lipid panel (fasting) (01/10/2012 11:28 AM EDT) Chol, Total 258(H) <=199 mg/dL CERNER MILLENNIUM Comment: Recommendations of the NCEP Adult Treatment Panel for the following risk cutoff thresholds for the [place] population: Desirable: <200 mg/dL Borderline High: 200-239 mg/dL High: > or = 240 mg/dL Triglycerides 131 <=149 mg/dL CERFLY MILLBALTAZARIUM Comment: Reference Range: Normal triglycerides: ??<150 mg/dL Borderline high: ??150-199 mg/dL High: ??200-499 mg/dL Very high: ??>xa=816 mg/dL THANIA 2001; 285(19):5011-7276 HDL 67 >=40 mg/dL EFFIE BLUEIUM Comment: Reference range: ??Low HDL: ?? < 40 mg/dL ??Normal: ?40-60 mg/dL ??Desirable: > 60 mg/dL THANIA 2001; 285(19):0716-0176 LDL Cholesterol 165(H) <=99 mg/dL EFFIE MICHAELBALTAZARIUM Comment: Reference range: ?? Optimal: ?<100 mg/dL ?? Near Optimal/Above Optimal: ?? 100-129 mg/dL ?? Borderline high: ?130-159 mg/dL ?? High: ? 160-189 mg/dL ?? Very high: ?>pz=418 mg/dL THANIA 2001: 285(19):5301-6049 Chol/HDL Ratio 3.9 ratio KADEN SEBASTIAN Comment: A Cholesterol to HDL ratio below 4:1 is desirable. ??Studies suggest that increased CAD risk occurs at ratios above 5 for females and above 6 for men. ? [place] Heart Association ??(http://www.americanheart.org) ? Airam Int Med, 1994; 121:641 ? AM J Med, 1998; 105(1A):48S Blood specimen (specimen) 01/10/2012 11:28 AM EDT 01/10/2012 6:14 PM EDT Narrative Resulting Agency Comment Spec In Lab Henrietta Null MD CHEMISTRY ORDERABLES Performing Organization Address [facility] de Phone Number CERNER MILLENNIUM * Calcium (01/10/2012 11:28 AM EDT) Calcium 9.6 8.5 - 10.5 mg/dL CERNER MILLENNIUM Blood specimen (specimen) 01/10/2012 11:28 AM EDT 01/10/2012 6:14 PM EDT Narrative Resulting Agency Comment Spec In Lab Henrietta Null MD CHEMISTRY ORDERABLES Performing Organization Address [facility] de Phone Number CERNER MILLENNIUM * PTH (01/10/2012 11:28 AM EDT) PTH 42 15 - 65 pg/mL CERNER MILLENNIUM Blood specimen (specimen) 01/10/2012 11:28 AM EDT 01/10/2012 6:14 PM EDT Narrative Resulting Agency Comment Spec In Lab Henrietta Null MD CHEMISTRY ORDERABLES Performing Organization Address [facility] de Phone Number CERNER MICHAELENNIUM documented in this encounter Visit Diagnoses Diagnosis Osteopenia Disorder of bone and cartilage, unspecified Trigger thumb Trigger finger (acquired) Preventative health care Routine general medical examination at a health care facility Hyperparathyroidism Hyperparathyroidism, unspecified Skin lesion Unspecified disorder of skin and subcutaneous tissue documented in this encounter Care Teams Store Manager Relationship Specialty Start Date End Date Henrietta Null MD [facility] [address] [address] PCP - General 12/20/10 05/08/20 documented as of this encounter
--- OUTSIDE RECORDS SUMMARY | 2024-04-23 12:18 | XMS_ITS | Encounter Summary ---
Author Organization [facility] [place] [address] Care Team Providers Care Personnel Generalist Manager Name Role Phone Henrietta Null MD Primary Care Provider Reason for Visit * Reason Comments Post Hospital Discharge Encounter Details Date Type Department Care Team (Latest Contact Info) Description 02/05/2011 9:51 AM EDT - 02/05/2011 11:59 PM EDT Hospital Encounter Gyne[place] [phone] Sanchez Sharif MD [facility] [place] [address] Ovarian fibroma (Primary Dx); Fibroma of ovary Discharge Disposition: Home Social History Tobacco Use [...] Sign Reading Time Taken Comments Blood Pressure 114/74 02/05/2011 10:10 AM EDT Pulse - - Temperature 36.6 ??C (97.9 ??F) 02/05/2011 10:10 AM E DT Respiratory Rate - - Oxygen Saturation - - Inhaled Oxygen Concentration - - Weight 58 kg (127 lb 13.9 oz) 02/05/2011 10:10 A M EDT Height - - Body Mass Index 26.27 01/07/2011 6:11 AM EDT documented in this encounter Medications at Time of Discharge Medication Sig Dispensed Refills Start Date End Date docusate sodium (COLACE) 50 mg/5 mL liquid Take 50 mg by mouth 2 times daily. 02/05/2011 04/10/2011 HYDROmorphone (DILAUDID) 2 mg tablet Take 1 tablet by mouth every 4 hours as needed for Pain for 30 days. 30 tablet 0 01/08/2011 02/07/2011 ibandronate (BONIVA) 150 mg tabletIndications:Osteop orosis Take 1 tablet by mouth every 30 days. 3 tablet 3 01/03/2011 12/10/2011 carBAMazepine (TEGRETOL) 200 mg tablet 12/20/2010 06/17/2011 cyanocobalamin (VITAMIN B-12) 1,000 mcg tablet 12/20/201006/01 senna-docusate (PERICOLACE) 8.6-50 mg per tablet 1 Tablet(s), PO, Twice daily,PRN 12/20/2010 11/28/2011 documented as of this encounter Progress Notes * Sanchez Sharif MD - 02/05/2011 10:27 AM EDT cc: Henrietta Null M.D. Gynecology Oncology Clinic-Followup Visit Reason for Visit: Postoperative exam. History: Heike Ramires is a 66-year-old woman, who on January 07, 2011, underwent bilateral salpingo-oophorectomy by a Pfannenstiel incision. Her final pathology shows bilateral ovarian fibromata, with the right being 8 cm in size. She had an unremarkable postoperative course in the hospital. Today, Ms. Ramires is back for a followup. She notes some bilateral ankle swelling after she has been working and standing for prolonged periods of time, usually worse in the evening, resolves by the morning. Otherwise, she says her appetite, bowel, bladder, and incision are doing well. She has not taking any pain medication for two weeks now. Review of Systems: Three systems reviewed, otherwise negative. Physical Examination: Vital signs are reviewed. Abdomen: The low transverse incision is well approximated. There is a small tail of suture coming from the left aspect, which should dissolve and fall out in the next one to two weeks. Otherwise, the incision is clean, dry, and intact, without erythema. Pelvic exam deferred. Impression: Satisfactory postoperative exam following open bilateral salpingo-oophorectomy for ovarian fibroma, bilateral. Plan: I have given her a copy of the operative report and pathology reports. She may return to Dr. Null for her routine healthcare and needs no further BUILDING GUARD DEPUTY SHERIFF Oncology Clinic followup, unless she has any problems with her incision. I have reassured her about her ankle edema, and she should anticipate this should continue in a lifelong manner, and is unlikely related to her surgery, as we did not perform any retroperitoneal procedures such as lymphadenectomy. documented in this encounter Plan of Treatment Upcoming Encounters Date Type Department Care Team (Late st Contact Info) Description 07/07/2024 11:00 AM EDT Office Visit Cardiology at [address] [address] Lorena Lawrence MD [facility] [place] [address] documented as of this encounter Visit Diagnoses Diagnosis Ovarian fibroma- Primary Benign neoplasm of ovary Fibroma of ovary Benign neoplasm of ovary documented in this encounter Care Teams Personnel Generalist Manager Relationship Specialty Start Date End Date Henrietta Null MD [facility] [address] [place] [address] PCP - General 12/20/10 05/08/20 documented as of this encounter
--- OUTSIDE RECORDS SUMMARY | 2024-04-23 12:18 | XMS_ITS | Encounter Summary ---
Author Organization [facility] [address] Care Team Providers Care Solar Sales Specialist Name Role Phone Henrietta Null MD Primary Care Provider [phone] Encounter Details Date Type Department Care Team (Late st Contact Info) Description 03/04/2012 10:15 AM EDT Follow-Up [place] [address] Yola Hoffmann, OT [facility] PHYSICAL MEDICINE & [place] [address] [facility] GENERAL [place] [address] Trigger fingers, left thumb and ring, right [...] Progress Notes * Yola Louis, OT - 03/04/2012 10:22 AM EDT OCCUPATIONAL THERAPY PROGRESS NOTE CERTIFICATION PERIOD: 02/06/12 - 03/25/12 REFERRAL SOURCE: Mushtaq Mann PA-C ATTENDING: Dr. Gomez Laboy VISIT# 5 DIAGNOSIS: 1. Trigger fingers, left thumb and ring, right ring (727.03B) DATE OF INJURY: Onset of symptoms approximately 6 months ago DATE OF SURGERY: none NEXT MD FOLLOW UP: 03/25/12 TOTAL TREATMENT TIME: 45 Minutes TIMED CODE TREATMENT TIME: 45 minutes CURRENT HISTORY: Heike Ramires is a 67 y.o. 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 Patient reported [...] from overuse. Current Symptoms: Patient presents with decreasing pain, 0/10 in fingers and 1- 2/10 in thumb. 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 HAND DOMINANCE: Right TREATMENT TODAY: Ultrasound (100%, 3.3 MHz, 1.0 W/cm2, 7 minutes) with additional 2 minutes of set-up time, used forsoft tissue preparation prior to treatment activities applied today to the right ring finger. There-Ex: 10 minutes Soft tissue mobilization through volar finger and over A1 rohit Gentle PROM of finger into composite flexion and extension Ultrasound (100%, 3.3 MHz, 1.0 W/cm2, 7 minutes) with additional 2 minutes of set-up time, used forsoft tissue preparation prior to treatment activities applied today to the left thumb. There-Ex: 15 minutes Soft tissue mobilization through volar finger and over A1 rohit Gentle PROM of finger into composite flexion and extension ASSESSMENT: Heike Ramires continues to Steady improvement in both her thumb and fingers. Patientreported that curve left ring finger no longer triggers and that her right ring finger warily triggers. She continues to avoid resistive thumb use whenever possible, however, it is difficult to avoidwhen cleaning. Patient has found the padded hand glove helpful in that it decreases the pressure from the Glass Plus bottle over her thumb. Patient will continue to benefit from OT and her to decrease pain and triggering in her left thumb and right ring finger. Retirement Goals (to be met by discharge): Heike [...] 6 week(s) to progress toward short and alf goals. Soft tissue mobilization as therapeutically necessary [...] 11:00 AM EDT Office Visit Cardiology at [address] [phone] Lorena Lawrence MD [facility] [place] [address] documented as of this encounter Visit Diagnoses Diagnosis Trigger fingers, left thumb and ring, right ring- Primary Trigger finger (acquired) documented in this encounter Care Teams Solar Sales Specialist Relationship Specialty Start Date End Date Henrietta Null MD [facility] [address] [place] [address] PCP - General 12/20/10 05/08/20 documented as of this encounter
--- OUTSIDE RECORDS SUMMARY | 2024-04-23 12:18 | XMS_ITS | Encounter Summary ---
Author Organization [facility] [place] [address] Care Team Providers Care Diabetes Clinical Manager Name Role Phone Henrietta Null MD Primary Care Provider [phone] Reason for Visit * Reason Onset Date Comments Follow Up Surgery 04/17/2012 Encounter Details Date Type Department Care Team (Late st Contact Info) Description 04/17/2012 [place] [address] Luis Alberto Collins MD [facility] [address] [place] [address] Follow Up Surgery Social History Tobacco Use Types Packs/Day Years [...] Telephone Encounter - Aranza Trujillo LPN - 04/17/2012 10:58 AM EDT Spoke with patient this morning aware that pathology results show that no residue lesion remains atsite. Patient please with this news. She has a fu appointment schedule for 04/27 for suture removal,has not hear from plastic surgery as of yet. * Telephone Encounter - Aranza Trujillo LPN - 04/17/2012 10:56 AM EDT Message copied by ARANZA TRUJILLO on FriApr 17, 2012 10:56 AM ------ Message from: LUIS ALBERTO COLLINS Created: Indira Apr 16, 2012 6:12 PM Regarding: f/u excision results Please notify patient: no residual lesion. Please make sure has suture removal and follow up, thanks. documented in this encounter Plan of Treatment Upcoming Encounters Date Type Department Care Team (Late st Contact Info) Description 07/07/2024 11:00 AM EDT Office Visit Cardiology at [address] [phone] Lorena Lawrence MD [facility] [place] [address] documented as of this encounter Visit Diagnoses Not on filedocumented in this encounter Care Teams Diabetes Clinical Manager Relationship Specialty Start Date End Date Henrietta Null MD [facility] [address] [place] [address] PCP - General 12/20/10 05/08/20 documented as of this encounter
--- OUTSIDE RECORDS SUMMARY | 2024-04-23 12:18 | XMS_ITS | Encounter Summary ---
Author Organization [facility] [place] [address] Care Team Providers Care Pediatric Physician Name Role Phone Henrietta Null MD Primary Care Provider [phone] Reason for Visit * Reason Comments Abdominal Pain Encounter Details Date Type Department Care Team (Late st Contact Info) Description 11/28/2011 11:20 AM EST Office Visit Internal Medicine at [address] [phone] Frances Brown MD [facility] [place] [address] Abdominal pain; Urinary urgency; Fatigue Discharge Disposition: Home Social History Tobacco Use [...] Sign Reading Time Taken Comments Blood Pressure 123/38 11/28/2011 11:12 AM EST Pulse 69 11/28/2011 11:12 AM EST Temperature 36.6 ??C (97.9 ??F) 11/28/2011 11:[address] Respiratory Rate - - Oxygen Saturation - - Inhaled Oxygen Concentration - - Weight 58.1 kg (128 lb) 11/28/2011 11:12 AM EST Height - - Body Mass Index 26.3 01/07/2011 6:11 AM EDT documented in this encounter Patient Instructions * Patient Instructions* Frances Brown MD - 11/28/2011 11:50 AM EST I will call you tomorrow to discuss the lab results which are back. documented in this encounter Progress Notes * Frances Brown MD - 11/28/2011 11:25 AM EST Subjective: Patient ID: Heike Ramires is a 66 y.o. female. HPI 66 yo f who presents for abdominal pain. She had diarrhea all night on Friday, which has now resolved. Since then, she has had lower abdominal pain and the feeling of needing to have a bowel movement but had not had a BM since Friday. She took some Maalox last night and has had two BMs this morning, but no change in the pain. The pain is in her lower abdomen b/l, feels like an ache, 7/10 in severity. She has had no nausea or vomiting. She had subjective fevers and chills and a clammy feeling on Friday, but has not had any since. She c/o the feeling of rectal pressure, but no back pain. The discomfort gets worse after eating. No other provoking or alleviating factors. She c/o urinary urgency. She denies dysuria. She had a colonoscopy in [facility] Spring 2008, negative. More fatigued lately x 6 months. She denies chest pain, shortness of breath. She has occasional lightheadedness, unclear of the triggers, improved with sitting down. No vertigo. She is on Tegretol for trigeminal neuralgia and increased the dose to 5 tablets/day 2 months ago. She thinks the fatigue is different from the fatigue she normally gets from Tegretol. She was also anemic in December following b/l salpingo-oophorectomy for ovarian fibroma. She has not had CBC rechecked since then. She does not take any NSAIDs or other pain meds on a regular basis. Review of Systems See above. Objective: Physical Exam Constitutional: She appears well-developed and well-nourished. No distress. HENT: Head: Normocephalic and atraumatic. Eyes: EOM are normal. No scleral icterus. Neck: Normal range of motion. Neck supple. Abdominal: Soft. Bowel sounds are normal. She exhibits no distension and no mass. Tenderness (mild epigastric tenderness) is present. She has no rebound and no guarding. Skin: Skin is warm and dry. No rash noted. No pallor. Psychiatric: She has a normal mood and affect. Her behavior is normal. Judgment and thought contentnormal. Urine dipstick - Sp. Grav. 1.000, pH 8, Trace LE and trace protein, otherwise negative. Assessment and Plan: 66 yo f who presents with two major complaints today. 1. Abdominal discomfort - differential includes a UTI (although on exam pain is more epigastric), residual gastritis from recent viral gastroenteritis, PUD. -Check urine culture -If negative, consider trial of PPI. 2. Fatigue of unclear etiology x 6 months. Differential includes anemia, side effect of Tegretol, toxicity from Tegretol, sleep apnea. Cardiac cause seems unlikely given lack of shortness of breath or chest discomfort. -Will check some basic labs (CBC, CMP, Carbamazepine level). -F/u based on above results. documented in this encounter Plan of Treatment Upcoming Encounters Date Type Department Care Team (Late st Contact Info) Description 07/07/2024 11:00 AM EDT Office Visit Cardiology at [address] [place] [phone] Lorena Lawrence MD [facility] [place] [address] Scheduled Orders Name Type Priority Associated Diagnoses Orde r Schedule POCT urine dipstick Point of Care Testing Routine Abdominal pain Urinary urgency Expected: 11/28/2011, Expires: 11/28/2011 documented as of this encounter Procedures Procedure Name Priority Date/Time Associated Diagnosis Comments DIFFERENTIAL, AUTOMATED Routine 11/28/2011 12:08 PM EST CBC (WITH DIFF) Routine 11/28/2011 12:08 PM EST Fatigue URINE CULTURE Routine 11/28/2011 12:08 PM EST Abdominal pain Urinary urgency CARBAMAZEPINE LEVEL, TOTAL Routine 11/28/2011 12:08 PM EST Fatigue COMPREHENSIVE METABOLIC PANEL (NON-FASTING) Routine 11/28/2011 12:08 PM EST Fatigue documented in this encounter Results * DIFFERENTIAL, AUTOMATED (11/28/2011 12:08 PM EST) Neutrophils % 67.8 34.0 - 71.0 % CERNER MILLENNIUM Neutr Abs (ANC) 3.38 1.50 - 6.30 x10(3)/mcL CERNER MILLENNIUM Lymphocytes % 20.0 19.0 - 53.0 % CERNER MILLENNIUM Lymphocytes Abs 1.0 1.0 - 3.6 x10(3)/mcL CERNER MILLENNIUM Monocytes % 7.6 4.0 - 13.0 % CERNER MILLENNIUM Monocyte Abs 0.4 0.2 - 1.0 x10(3)/mcL CERNER MILLENNIUM Eosinophils % 4.0 0.0 - 7.0 % CERNER MILLENNIUM Eosinophils Abs 0.2 0.0 - 0.5 x10(3)/mcL CERNER MILLENNIUM Basophils % 0.4 0.0 - 2.0 % CERNER MILLENNIUM Basophils Abs 0.0 0.0 - 0.2 x10(3)/mcL CERNER MILLENNIUM Immature Gran % 0.20 0.00 - 0.66 % CERNER MILLENNIUM Comment: Immature granulocytes(IG's)percentage and absolute count will include metamyelocytes, myelocytes, and promyelocytes. Blood smears from CBCs yielding IG's will be scanned manually for concordance. If this scan disagrees with the automated IG or if promyelocytes are noted, a manual differential will be performed. Anne Gran Abs 0.01 0.00 - 0.05 x10(3)/mcL CERNER MILLENNIUM Blood specimen (specimen) 11/28/2011 12:08 PM EST 11/28/2011 6:13 PM EST Frances Brown MD HEMATOLOGY ORDERABLE S Performing Organization Address [facility] Co de Phone Number [facility] * Urine culture Clean Catch Urine (11/28/2011 12:08 PM EST) Urine Culture ? Patient Name: HEIKE RAMIRES ?Ordered By: FRANCES BROWN ? MR#: [id number] ?LOC: ??LYME ? /Sex: ?? 5 (66 years), ? Female ? PROCEDURE: Urine Culture ?SOURCE: U CC ? COLLECTED: 11/28/2011 12:08 ? STARTED: 11/28/2011 18:23 ? FINAL REPORT ? Final Report ? Verified: 15:13 ? No growth (Less than 1,000 cfu/ml). ? ____ [facility] Urine specimen obtained by clean catch procedure (specimen) 11/28/2011 12:08 PM EST 11/28/2011 6:23 PM EST Narrative Resulting Agency Comment Spec In Lab Frances Brown MD MICROBIOLOGY - GENER AL ORDERABLES Performing Organization Address [facility] Co de Phone Number [facility] * (ABNORMAL) Comprehensive metabolic panel (non-fasting) (11/28/2011 12:08 PM EST) Glucose Lvl 92 60 - 199 mg/dL CERNER MILLENNIUM Comment:Diabetes: >=200 mg/d L plus symptoms BUN 11 8 - 18 mg/dL CERNER MILLENNIUM Creatinine 0.58(L) 0.70 - 1.20 mg/dL CERNER MILLENNIUM Sodium 138 135 - 145 mmol/L CERNER MILLENNIUM Potassium 3.9 3.5 - 5.0 mmol/L CERNER MILLENNIUM Comment: Please note: ??Patients with WBC >100,000 may have falsely elevated Potassium levels. ??For accurate Potassium quantification in these patients send serum separator tube (gold top) for subsequent determinations. ??Contact the Clinical Chemistry Laboratory if there are any questions. Chloride 104 98 - 107 mmol/L CERNER MILLENNIUM CO2 26 22 - 31 mmol/L CERNER MILLENNIUM Anion Gap 8 5 - 15 mmol/L CERNER MILLENNIUM Calcium 8.3(L) 8.5 - 10.5 mg/dL CERNER MILLENNIUM Total Protein 6.4 6.4 - 8.3 gm/dL CERNER MILLENNIUM Albumin 4.2 3.2 - 5.2 gm/dL CERNER MILLENNIUM AST 25 0 - 30 unit/L CERNER MILLENNIUM ALT 28 0 - 30 unit/L CERNER MILLENNIUM Alk Phos 97 40 - 104 unit/L CERNER MILLENNIUM Total Bilirubin 0.1(L) 0.2 - 1.3 mg/dL CERNER MILLENNIUM Bili, Direct <0.1 0.0 - 0.3 mg/dL CERNER MILLENNIUM Estimated GFR >60 >=60 CERNER MILLENNIUM Comment: The National Kidney Disease Education Program (NKDEP) has recommended all laboratories report estimated GFR (eGFR) along with plasma creatinine measurements to assist you with recognition of early kidney disease. Caveats: ??Plasma creatinine should be at steady-state (unchanged within the past week). For patients multiply eGFR by 1.2. The MDRD equation has not been validated for pediatric patients and is only valid for patients with age >= 18 years. At present, NKDEP does NOT recommend using the MDRD equation for drug dosing purposes and pharmacists should continue to use their current dosing methods. In addition, numerical eGFR values greater than 60 ml/min/1.73 square meters should be treated as > 60, and not an exact number due to greater inaccuracies at these higher values. Per NKDEP, they classify normal renal function as any GFR >60ml/min/1.73 square meters; chronic kidney disease when GFR <60, and renal failure when GFR <15. ??This calculation may not be valid for patients with atypical muscle mass (very lean or obese), acute renal failure, and in patients with diabetic kidney disease. References: http://nkdep.nih.gov/resources/NKDEP_Suggestn4Labs_0606_508.pdf http://www.kidney.org/professionals/kls/pdf/faq_gfr.pdf Blood specimen (specimen) 11/28/2011 12:08 PM EST 11/28/2011 6:13 PM EST Narrative Resulting Agency Comment Spec In Lab Frances Brown MD CHEMISTRY ORDERABLES CERNER MILLENNIUM * (ABNORMAL) CBC (with Diff) (11/28/2011 12:08 PM EST) WBC 5.0 4.0 - 10.0 x10(3)/mcL CERNER MILLENNIUM RBC 3.88(L) 3.93 - 5.22 x10(6)/mcL CERNER MILLENNIUM Hemoglobin 11.2 11.2 - 15.7 gm/dL CERNER MILLENNIUM Hematocrit 35.5 34.0 - 45.0 % CERNER MILLENNIUM MCV 91.5 79.0 - 94.0 fL CERNER MILLENNIUM MCH 28.9 26.6 - 32.2 pg CERNER MILLENNIUM MCHC 31.5(L) 32.0 - 36.5 gm/dL CERNER MILLENNIUM Platelets 219 145 - 370 x10(3)/mcL CERNER MILLENNIUM RDWSD 41.9 35.0 - 46.0 fL CERNER MILLENNIUM RDWCV 12.5 10.9 - 14.4 % CERNER MILLENNIUM MPV 10.0 9.0 - 12.0 fL CERNER MILLENNIUM Blood specimen (specimen) 11/28/2011 12:08 PM EST 11/28/2011 6:13 PM EST Narrative Resulting Agency Comment Spec In Lab Frances Brown MD HEMATOLOGY ORDERABLE S Performing Organization Address City/[facility]/ZIP Co de Phone Number EFFIE SEBASTIAN * Carbamazepine level, total (11/28/2011 12:08 PM EST) Carbamazepine Lvl 9.4 8.0 - 12.0 mg/L CERNER MILLENNIUM Comment: Therapeutic range: ??8-12 mg/L Toxic: ??> 12 mg/L Blood specimen (specimen) 11/28/2011 12:08 PM EST 11/28/2011 6:13 PM EST Narrative Resulting Agency Comment Spec In Lab Frances Brown MD CHEMISTRY ORDERABLES Performing Organization Address [facility] Co de Phone Number EFFIE SEBASTIAN documented in this encounter Visit Diagnoses Diagnosis Abdominal pain Abdominal pain, unspecified site Urinary urgency Urgency of urination Fatigue Other malaise and fatigue documented in this encounter Care Teams Pediatric Physician Relationship Specialty Start Date End Date Henrietta Null MD [facility] [address] [place] [address] PCP - General 12/20/10 05/08/20 documented as of this encounter
--- OUTSIDE RECORDS SUMMARY | 2024-04-23 12:18 | XMS_ITS | Encounter Summary ---
Author Organization [facility] [place] [address] Care Team Providers Care Manager Of Digital Name Role Phone Henrietta Null MD Primary Care Provider [phone] Encounter Details Date Type Department Care Team (Latest Contact Info) Description 03/20/2012 10:00 AM EDT Laboratory Appointment Internal Medicine at [address] [phone] CLINIC, Henrietta Cordon MD [facility] GENERAL INTERNAL [facility] [address] Hyperlipidemia Discharge Disposition: Home Social History Tobacco [...] AM EDT Office Visit Cardiology at [address] [phone] Lorena Lawrence MD [facility] [place] [address] documented as of this encounter Procedures Procedure Name Priority Date/Time Associated Diagnosis Comments LIPID PANEL (REFLEX DIRECT LDL) Routine 03/20/2012 10:49 AM EDT Hyperlipidemia documented in this encounter Results * (ABNORMAL) Lipid panel (fasting) (03/20/2012 10:49 AM EDT) Chol, Total 238(H) <=199 mg/dL CERFLY MILLENNIUM Comment: Recommendations of the NCEP Adult Treatment Panel for the following risk cutoff thresholds for the [place] population: Desirable: <200 mg/dL Borderline High: 200-239 mg/dL High: > or = 240 mg/dL Triglycerides 120 <=149 mg/dL EFFIE MILLENNIUM Comment: Reference Range: Normal triglycerides: ??<150 mg/dL Borderline high: ??150-199 mg/dL High: ??200-499 mg/dL Very high: ??>ri=816 mg/dL THANIA 2001; 285(19):9957-9065 HDL 57 >=40 mg/dL EFFIE MILLENNIUM Comment: Reference range: ??Low HDL: ?? < 40 mg/dL ??Normal: ?40-60 mg/dL ??Desirable: > 60 mg/dL THANIA 2001; 285(19):3858-8879 LDL Cholesterol 157(H) <=99 mg/dL EFFIE MILLENNIUM Comment: Reference range: ?? Optimal: ?<100 mg/dL ?? Near Optimal/Above Optimal: ?? 100-129 mg/dL ?? Borderline high: ?130-159 mg/dL ?? High: ? 160-189 mg/dL ?? Very high: ?>ey=453 mg/dL THANIA 2001: 285(19):5020-4059 Chol/HDL Ratio 4.2 ratio KADEN Phan MILLBALTAZARIUM Comment: A Cholesterol to HDL ratio below 4:1 is desirable. ??Studies suggest that increased CAD risk occurs at ratios above 5 for females and above 6 for men. ? [place] Heart Association ??(http://www.americanheart.org) ? Airam Int Med, 1994; 121:641 ? AM J Med, 1998; 105(1A):48S Blood specimen (specimen) 03/20/2012 10:49 AM EDT 03/20/2012 12:10 PM EDT Narrative Resulting Agency Comment Spec In Lab Henrietta Null MD CHEMISTRY ORDERABLES [facility] documented in this encounter Visit Diagnoses Diagnosis Hyperlipidemia Other and unspecified hyperlipidemia documented in this encounter Care Teams Manager Of Digital Relationship Specialty Start Date End Date Henrietta Null MD [facility] [address] [place] [address] PCP - General 12/20/10 05/08/20 documented as of this encounter
--- OUTSIDE RECORDS SUMMARY | 2024-04-23 12:18 | XMS_ITS | Encounter Summary ---
Author Organization [facility] [place] [address] Care Team Providers Care Receiver Stocker Name Role Phone Henrietta Null MD Primary Care Provider [phone] Encounter Details Date Type Department Care Team (Late Contact Info) Description 04/14/2012 Orders [place] [address] Luis Alberto Collins MD [facility] DR [place] [address] Social History Tobacco Use Types Packs/Day Years [...] 11:00 AM EDT Office Visit Cardiology at [address] [phone] Lorena Lawrence MD [facility] [place] [address] documented as of this encounter Visit Diagnoses Not on filedocumented in this encounter Care Teams Receiver Stocker Relationship Specialty Start Date End Date Henrietta Null MD [facility] [address] [place] [address] PCP - General 12/20/10 05/08/20 documented as of this encounter
--- OUTSIDE RECORDS SUMMARY | 2024-04-23 12:18 | XMS_ITS | Encounter Summary ---
Author Organization [facility] [place] [address] Care Team Providers Care Braze Operator Name Role Phone Henrietta Null MD Primary Care Provider [phone] Encounter Details Date Type Department Care Team (Late Contact Info) Description 01/13/2012 Orders Only Orthopaedics at [facility] [place] [address] Mushtaq Mann PA [facility] [place] [address] Hand pain (Primary Dx) Social History Tobacco Use Types [...] AM EDT Office Visit Cardiology at [address] [phone] Lorena Lawrence MD [facility] [place] [address] documented as of this encounter Results * XR hand diagnostic [...] in this encounter Visit Diagnoses Diagnosis Hand pain- Primary Pain in limb Hand pain Pain in limb documented in this encounter Care Teams Braze Operator Relationship Specialty Start Date End Date Henrietta Null MD [facility] [address] [address] PCP - General 12/20/10 05/08/20 documented as of this encounter
--- OUTSIDE RECORDS SUMMARY | 2024-04-23 12:18 | XMS_ITS | Encounter Summary ---
Author Organization [facility] [place] [address] Care Team Providers Care Child Adolescent Care Name Role Phone Henrietta Null MD Primary Care Provider [phone] Reason for Visit * Reason Onset Date Comments Medication Refill 12/10/2011 Encounter Details Date Type Department Care Team (Late st Contact Info) Description 12/10/2011 Refill Internal Medicine at [address] [address] Henrietta Null MD [facility] [place] [address] Osteoporosis Social History Tobacco Use Types Packs/Day [...] 11:00 AM EDT Office Visit Cardiology at [address] [phone] Lorena Lawrence MD [facility] [place] [address] documented as of this encounter Visit Diagnoses Diagnosis Osteoporosis Osteoporosis, unspecified documented in this encounter Care Teams Child Adolescent Care Relationship Specialty Start Date End Date Henrietta Null MD [facility] [address] [place] [address] PCP - General 12/20/10 05/08/20 documented as of this encounter
--- OUTSIDE RECORDS SUMMARY | 2024-04-23 12:18 | XMS_ITS | Encounter Summary ---
Author Organization [facility] [place] [address] Care Team Providers Care Pega Developer Name Role Phone Henrietta Null MD Primary Care Provider [phone] Reason for Visit * Reason Comments Bilateral Hand Pain Encounter Details Date Type Department Care Team (Late st Contact Info) Description 03/25/2012 8:40 AM EDT [place] [phone] Mushtaq Mann PA [facility] [place] [address] Trigger finger (Primary Dx) Discharge Disposition: Home Social History [...] as of this encounter Progress Notes * Jessi Mansfield, ANA MARIA - 03/25/2012 9:39 AM EDT PATIENT NAME: Heike Ramires AGE: 67 y.o. MR#: [id number] DATE OF VISIT: 03/25/2012 DATE OF INJURY/ONSET: Chronic STAFF: Dr. Gomez Laboy CHIEF COMPLAINT: Multiple trigger fingers HISTORY OF PRESENT ILLNESS Ms. Ramires a 67 y.o. year old female comes into clinic today for reevaluation of multiple trigger fingers after completing a 6 week course of occupational therapy. The patient states that she has had left thumb and ring finger triggers as well as right fourth ring finger triggers. She has been seen in occupational therapy as well as done a course of home exercises. She states that all her fingers have stopped triggering, her left thumb triggers occasionally. She denies pain and feels that continuing home exercises is an acceptable option for her at this time. 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 PHYSICAL EXAM: Ms. Keyla niño 67 y.o. is alert and oriented. She appears in no acute discomfort and is resting comfortably in a chair in the exam room. SKIN: No nodules, edema or deformity noted of the hands CV: distal pulses 2+ and equal MSK: Palpation: No point tenderness or bogginess noted Strength: Hand grasps are strong bilaterally 5/5 Orthopedic testing: Bilateral EPL intact, right FPL with decreased active flexion, full range passive flexion (this is acceptable to the patient and she has no desire to explore further treatment forthis) Neurological: The radial, medial, and ulnar nerve distributions. Intrinsics are intact. RADIOLOGICAL STUDIES: None at this visit ASSESSMENT: Resolving trigger fingers with home occupational therapy; this is acceptable to the patient. PLAN: Pertinent positives were resolving trigger fingers after a 6 week course of occupational therapy, decreased flexion of left FPL as noted above . Patient will continue doing her home occupational therapy exercises. The patient will follow up in clinic only as needed. documented in this encounter Plan of Treatment Upcoming Encounters Date Type Department Care Team (Late st Contact Info) Description 07/07/2024 11:00 AM EDT Office Visit Cardiology at [address] [place] [phone] Lorena Lawrence MD [facility] [place] [address] documented as of this encounter Visit Diagnoses Diagnosis Trigger finger- Primary Trigger finger (acquired) documented in this encounter Care Teams Pega Developer Relationship Specialty Start Date End Date Henrietta Null MD [facility] [address] [facility] [place] [address] [place] [address] PCP - General 12/20/10 05/08/20 documented as of this encounter
--- OUTSIDE RECORDS SUMMARY | 2024-04-23 12:18 | XMS_ITS | Encounter Summary ---
Author Organization [facility] [place] [address] Care Team Providers Care Physician Support Coordinator Name Role Phone Henrietta Null MD Primary Care Provider [phone] Reason for Visit * Reason Comments Skin Check spot check Encounter Details Date Type Department Care Team (Late st Contact Info) Description 01/31/2012 9:00 AM EDT [place] [address] Shelia Morgan MD [facility] [address] [place] [address] Cecilia Mercado MD [facility] [place] [address] Neoplasm of unspecified nature of bone, soft tissue, and skin (Primary Dx) Discharge Disposition: Home Social History [...] as of this encounter Progress Notes * Dung Ly - 01/31/2012 9:37 AM EDT I directly supervised Dr. Mercado during [...] Mercado's note. * Cecilia Mercado MD - 01/31/2012 9:06 AM EDT Heike Ramires 1945 67 y.o. Chief Complaint: 1. Urgent Visit/Limited Spot Examination HISTORY/Objective: Heike Ramires is a 67 y.o. year old female. New patient to me. This patient is being seen in consultation at the request of HENRIETTA NULL MD who instructed the patient to see me for the evaluation of spot on left dorsal foot. Today's issues and concerns: - Focal, limited exam today, can return for full skin exam later date - Brown spot on foot present for ~ 1 year, may be getting larger and darker. She was not concerned but her primary recommended that she have this lesion checked as it is new and changing. - Lesion not bothersome to pt. Never bled, no itching sensation No family hx of melanoma No personal hx of skin cancers + hx blistering sunscreen Patient Active Problem List Diagnoses Code ??? Ovarian fibroma 220EA ??? Osteoporosis 733.00C ??? Trigeminal neuralgia 350.1 ??? Preventative health care V70.0C EXAMINATION/Objective: Patient appeared healthy and in no apparent distress. Specific focal area examined: Left dorsal foot Today's Specific Findings on Examination: - Dark brown symmetric macule on dorsum of left foot, 0.3cm DIAGNOSIS/ASSESSMENT: 1.Atypical mole, dysplastic nevus vs MM PLAN: Discussion: 1. Neoplasm of unknown behavior, left dorsal foot: discussed that although physical exam findings are not extremely concerning for melanoma, the history of new appearance and growth is concerning in her age group. Therefore, recommended biopsy to evaluate for dysplasia or melanoma. Patient agreed to the procedure after discussing risks/benefits/alternatives Procedures: Procedure: Shave removal of lesion. Location: Left dorsal foot Discussed indications for procedure and expectations including risks and benefits. Verbal consent obtained. Skin prep with alcohol. Local anesthesia with 1% xylocaine, 1/100,000 epinephrine, 0.1 mEq/mL bicarbonate. The lesion was removed by shave technique to the level of the dermis and submitted to Pathology. Hemostasis obtained. (AlCl and/or electrocautery). There were no complications; the pt.tolerated the procedure well. The wound was dressed. Post- procedure expectations, wound care and activity restrictions were reviewed. Final diameter: 0.3cm Follow-up based on pathology results. Follow up: based on pathology SAY Cecilia Mercado MD PGY-2 Staff Final Inspector Paper: Dung Ly MD documented in this encounter Plan of Treatment Upcoming Encounters Date Type Department Care Team (Late st Contact Info) Description 07/07/2024 11:00 AM EDT Office Visit Cardiology at [address] [place] [address] Lorena Lawrence MD [facility] [place] [address] documented as of this encounter Procedures Procedure Name Priority Date/Time Associated Diagnosis Comments SURGICAL PATHOLOGY REPORT Routine 01/31/2012 10:15 AM EDT SPECIMEN TO PATHOLOGY Routine 01/31/2012 9:04 AM EDT Neoplasm of unspecified nature of bone, soft tissue, and skin documented in this encounter Results * SURGICAL PATHOLOGY REPORT (01/31/2012 10:15 AM EDT) Surgical Pathology Report ? [facility] ? Provider: ?? CECILIA MERCADO ? Pt. Name: ?? RAMIRESHEIKE ? Acc #: ?[id number] ? Pt. ? Col Date: ?? 01/31/2012 ?/Sex: ?1945,(67 years),Female ? Rec Date: ?? 01/31/2012 ?LOC: ?4M ? SURGICAL PATHOLOGY ? ---Pathologic Diagnosis--- ? Skin, left dorsal foot, shave biopsy: ?Severely atypical lentiginous and nested junctional melanocytic ? proliferation in sun-damaged skin, the edges of the specimen are free of ? lesion in the planes of section examined, (see Comment). ? Dictated by: ??Nimisha Castillo, DO ? Dermatopathology Fellow ? As the attending physician, I attest that I examined the histologic slides, ? and confirm Dr. Nimisha Castillo's diagnosis. ? CR-0 ? 01/31/12 ? BJM ? 02/05/12 Verified by: ? Santhosh Mitchell MD ? Dermatopathologist ? (Electronic Signature) ? The attending pathologist whose signature appears on this report has ? reviewed all diagnostic slides and has edited the gross and/or ? microscopic portion of the report in rendering the final pathologic ? diagnosis. ? ---Comment--- ? There are atypical and occasionally multinucleate melanocytes present along ? the dermoepidermal junction. 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 We cannot exclude an evolving early melanoma in situ. ? Multiple deeper levels have been examined. ??Drs. Bell, Jason, and Bo ? have reviewed this case and agree with the diagnosis. ? ---Microscopic Description--- ? Slides reviewed, microscopic description not recorded. ? ---Gross Description--- ? Labeled/Fixative: ? Labeled with the patient's name, formalin. ? Qty/Size/Weight: ?Single shave, 0.6 cm, white with a 0.4-cm, dark ? brown macule. ? Sections/Processing: ??Bisected. ??(T1) bjm/SNS ? ---Clinical Information--- ? Specimen Submitted: ? [facility] ? Provider: ?? CECILIA MERCADO ? Pt. Name: ?? HEIKE RAMIRES ? Acc #: ?[id number] ? Pt. ? Col Date: ?? 01/31/2012 ?/Sex: ?1945,(67 years),Female ? Rec Date: ?? 01/31/2012 ?LOC: ?4M ? SURGICAL PATHOLOGY ? A - Skin, left dorsal foot, shave biopsy (1) ? Clinical History/Diagnosis: ? 3 mm new brown macule with pigment globules on dermoscopy - dysplastic ? nevus evaluate for MM EFFIE SEBASTIAN 01/31/2012 10:1 5 AM EDT Cecilia Mercado MD PATHOLOGY/CYTOLOGY O RDERABLES EFFIE SEBASTIAN * Specimen to Pathology (surgical or derm) (01/31/2012 9:04 AM EDT) AP Specimen 01/31/2012 9:04 AM EDT 01/31/2012 9:04 AM EDT Narrative EFFIE SEBASTIAN - 01/31/2012 9:04 AM EDT Specimen requisition ordered. ??Separate Pathology report to follow Dung Ly MD PATHOLOGY/CYTOLOGY ORDERABLES EFFIE SEBASTIAN documented in this encounter Visit Diagnoses Diagnosis Neoplasm of unspecified nature of bone, soft tissue, and skin- Primary documented in this encounter Care Teams Physician Support Coordinator Relationship Specialty Start Date End Date Henrietta Null MD [facility] [address] [place] [place] [address] PCP - General 12/20/10 05/08/20 documented as of this encounter
--- OUTSIDE RECORDS SUMMARY | 2024-04-23 12:18 | XMS_ITS | Encounter Summary ---
Author Organization [facility] [place] [address] Care Team Providers Care Chopper Feeder Name Role Phone Henrietta Null MD Primary Care Provider [phone] Reason for Referral * Consultation (Urgent) - Complete - Patient Will Schedule External Appt Specialty Diagnoses / Procedures Referred By Evelio mathis Referred To Contact Neurology Diagnoses Trigeminal neuralgia Henrietta Null MD [facility] [place] [address] Referral ID Status Reason Start Date Expiration Date Visits Requested Visits Authorized [id number] Complete - Patient Will Schedule External Appt Consult, Test & Treat 05/20/2011 11/16/2011 1 1 Reason for Visit * Reason Onset Date Comments Other 05/14/2011 REFERRAL TO NEUR O Encounter Details Date Type Department Care Team (Late st Contact Info) Description 05/14/2011 Telephone [place] [address] Henrietta Null MD [facility] [place] [address] Other (REFERRAL TO NEURO) Social History Tobacco Use Types Packs/Day Years [...] encounter Miscellaneous Notes * Telephone Encounter - Greta Carrera - 05/14/2011 11:27 AM EDT PT STATED THAT SHE WOULD LIKE TO HAVE A SECOND OPINION TO SEE A NEUROLOGIST IN [facility] IN [facility]. SHE HAS A DR THAT SHE WOULD LIKE TO SEE BY THE NAME OF DR. ORDONEZ PHONE # [phone] AND FAX [phone]. I have put a referral into our system. She will need to have her records from [facility] sent to this MD - I don't know if she should call medical records directly for this, or if my elementary secretary can do this (records from neurology and pain clinic). documented in this encounter Plan of Treatment Upcoming Encounters Date Type Department Care Team (Late st Contact Info) Description 07/07/2024 11:00 AM EDT Office Visit Cardiology at [address] [phone] Lorena Lawrence MD [facility] [place] [address] Scheduled Referrals Name Type Priority Associated Diagnoses Orde r Schedule REFERRAL TO NEUROLOGY Outpatient Referral Routine Trigeminal neuralgia Ordered: 05/20/2011 documented as of this encounter Visit Diagnoses Diagnosis Trigeminal neuralgia- Primary documented in this encounter Care Teams Chopper Feeder Relationship Specialty Start Date End Date Henrietta Null MD [facility] [address] [place] [address] PCP - General 12/20/10 05/08/20 documented as of this encounter
--- OUTSIDE RECORDS SUMMARY | 2024-04-23 12:18 | XMS_ITS | Encounter Summary ---
Author Organization [facility] [place] [address] Care Team Providers Care Inorganic Chemistry Teacher Name Role Phone Henrietta Null MD Primary Care Provider [phone] Encounter Details Date Type Department Care Team (Latest Contact Info) Description 01/07/2011 5:39 AM EDT - 01/08/2011 11:01 AM EDT Hospital Encounter [address] [place] [id number] Sanchez Perez MD [facility] [place] [address] Discharge Disposition: Home Social History Tobacco Use Types Packs/Day Years Used Date Smoking Tobacco: Never Tobacco Cessation:Counseling Given: No Alcohol Use Standard Drinks/Week Comments No 0 (1 standard drink = 0.6 oz pur e alcohol) Sex and Gender Information Value Date Recorded Sex Assigned at Not on file Gender Identity Not on file Sexual Orientation Not on file documented as of this encounter Last Filed Vital Signs Vital Sign Reading Time Taken Comments Blood Pressure 100/58 01/08/2011 7:50 AM EDT Pulse 80 01/08/2011 7:50 AM EDT Temperature 36.8 ??C (98.2 ??F) 01/08/2011 7:50 AM ED T Respiratory Rate 16 01/08/2011 7:50 AM EDT Oxygen Saturation 95% 01/08/2011 7:50 AM EDT Inhaled Oxygen Concentration - - Weight 58.1 kg (128 lb) 01/07/2011 6:11 AM EDT Height 148.6 cm (4' 10.5) 01/07/2011 6:11 AM ED T Body Mass Index 26.3 01/07/2011 6:11 AM EDT documented in this encounter Discharge Instructions * Patient Instructions* Jacque Macedo Naeem - 01/08/2011 10:07 AM EDT PATIENT DISCHARGE INSTRUCTIONS Call your doctor if you develop: --A fever over 101 degrees --Severe pain --Heavy vaginal bleeding --Increasing pain, redness, or discharge at your incision Activity level: No heavy lifting, pushing or pulling for 6 weeks. No sexual intercourse, no tampons, nothing in the vagina for 6 weeks. Diet: You may resume your regular diet. Be sure you drink plenty of fluids. Please use colace 100-200mg twice daily for the entire time that you are taking pain medication to keep your bowel movements soft and regular. If you are constipated or have not had a bowel movement in 3 days, please use milk of magnesia (or miralax) as directed over the counter. Driving: Do not drive until you are off of all narcotic medications and you are not feeling pain; usually about 2 weeks. Shower/Bath: Showering is fine. Short baths are OK but you should avoid having any abdominal incision submerged for more than 10-15 minutes for the next 2 weeks. Wound Care: You may remove your dressing the day after you leave the hospital, if they were not removed prior to discharge. Under the dressings will be small pieces of paper tape over your incision. This tape can get wet in the shower, just ensure that you dry them well. These pieces of tape shouldfall off within 7 days; if they have not, please remove them after one week. You have stitches justunder the skin and these will dissolve on their own over the next couple of weeks. They do not needto be removed or altered. Special Physician Instructions: Pain medications include dilaudid and motrin Please use motrin 600mg every 6 hours with food around the clock for the next several days and thenafter that use it only as needed. Please use the dilaudid 2mg (1-2 tablets) every 4-6 hours as needed for pain that breaks through the motrin documented in this encounter Medications at Time of Discharge Medication Sig Dispensed Refills Start Date End Date docusate sodium (COLACE) 100 mg capsule Take 1 capsule by mouth 2 times daily for 14 days. 28 capsule 0 01/08/2011 01/22/2011 HYDROmorphone (DILAUDID) 2 mg tablet Take 1 tablet by mouth every 4 hours as needed for Pain for 30 days. 30 tablet 0 01/08/2011 02/07/2011 ibuprofen (ADVIL;MOTRIN) 600 mg tablet Take 1 tablet by mouth every 6 hours for 14 days. 60 tablet 0 01/08/2011 01/22/2011 ibandronate (BONIVA) 150 mg tabletIndications:Osteo porosis Take 1 tablet by mouth every 30 days. 3 tablet 3 01/03/2011 12/10/2011 carBAMazepine (TEGRETOL) 200 mg tablet 12/20/2010 06/17/2011 cyanocobalamin (VITAMIN B-12) 1,000 mcg tablet 12/20/201006/01 senna-docusate (PERICOLACE) 8.6-50 mg per tablet 1 Tablet(s), PO, Twice daily,PRN 12/20/2010 11/28/2011 documented as of this encounter Progress Notes * Laisha Albrecht MD - 01/08/2011 9:27 AM EDT Gynecology - Progress Note- Post Op Check Heike Ramires is an 65 y.o. woman post operative day 1 s/p open BSO for ovarian fibroma. Subjective: She has no complaints.. Pain is controlled on toradol and PO dilaudid. She is ambulating with assistance. She is tolerating a regular diet. Denies n/v. +flatus. No BM yet. +voiding. She denies cough,difficulty breathing and chest pain. Physical Exam: Last Set of Vitals and range of vitals over past 24 hours: Last value Range last 24 hrs toradoTemperature Temp: 98.2 ??F (36.8 ??C) Temp: [97 ??F (36.1 ??C)-99.1 ??F (37.3 ??C)] Heart Rate Heart Rate: 80 Heart Rate: [60-114] Blood Pressure BP: 100/58 mmHg BP: (82-114)/(33-66) Respiratory Rate Resp: 16 Resp: [16-18] SpO2 SpO2: 95 % SpO2: [92 %-100 %] Date 01/08/11 0700 - 01/09/11 0659 Shift [id number] [id number] 6163-9286 24 Hour Total I N T A K E P.O. 240 240 Shift Total (mL/kg) 240 (4.1) 240 (4.1) O U T P U T Urine (mL/kg/hr) 450 450 Shift Total (mL/kg) 450 (7.8) 450 (7.8) Weight (kg) 58.1 58.1 58.1 58.1 Physical Exam Constitutional: She appears well-developed and well-nourished. No distress. Sitting up, eating breakfast HENT: Head: Normocephalic and atraumatic. Cardiovascular: Normal rate, regular rhythm and normal heart sounds. Pulmonary/Chest: Effort normal and breath sounds normal. No respiratory distress. She has no wheezes. She has no rales. Abdominal: Soft. Bowel sounds are normal. She exhibits no distension and no mass. Tenderness (appropriately tender) is present. She has no rebound and no guarding. Dressing removed with dried blood. Incision c/d/i, no erythema, no drainage. Genitourinary: No vaginal bleeding Musculoskeletal: She exhibits no edema and no tenderness. Skin: Skin is warm and dry. She is not diaphoretic. Laboratory (Last 24 Hours): CBC Lab Results Component Value Date WBC 9.9 01/07/2011 Hemoglobin 10.8* 01/07/2011 Hematocrit 32.9* 01/07/2011 Platelets 183 01/07/2011 Electrolytes Lab Results Component Value Date Potassium 3.9 01/07/2011 CO2 24 01/07/2011 Renal Lab Results Component Value Date BUN 6* 01/07/2011 Creatinine 0.49* 01/07/2011 Glucose Lab Results Component Value Date Glucose Lvl 103 01/07/2011 Assessment and Plan: Heike Ramires is an 65 y.o. year old woman POD #1 s/p open BSO in stable condition, pain controlled and adequate urine output. Pain Control: -- switch to PO ibuprofen with dilaudid for breakthrough Cardiac: --no issues, hemodynamically stable. Pulmonary: --incentive spiriometer at bedside Gastrointestinal: no nausea or vomiting. Continue regular diet Genitourinary: good urine output. Fluid/ Electrolytes: May wean IVF when patient tolerating full PO. Ambulation: out of bed and ambulate Disposition: Likely DC home today to follow up with Dr. Kole ALBRECHT 01/08/2011 * Lucy Khan RN - 01/08/2011 12:01 AM EDT Mrs. Ramires arrived to room #118 bed B around 1720. Post operative education performed regarding importance of early ambulation; use of incentive spirometer; abdominal splinting for pain relief; painmanagement; and nausea management. Pt received po Dilaudid prn and scheduled Toradol for pain management with positive stated relief.Please see MAR. Once pain was relieved, orthostatic vital signs were checked, pt has a soft systolic but no orthostatic changes were evident. Pt had no complaints of dizziness with position change. She ambulated this evening to nurses desk and back without difficulty using her abdominal splint and standby assist. Herrmann catheter was discontinued at 2200. Pt is due to void in 4- 6 hours, this report was passed to oncoming RN in handoff. * Laisha Albrecht MD - 01/07/2011 3:48 PM EDT Gynecology - Progress Note- Post Op Check Heike Ramires is an 65 y.o. woman post operative day 0 s/p BSO for fibroma. Subjective: In the PACU, she has had low blood pressures which have now responded to >2L fluid bolus and 2 doses of phenylephrine. She had no symptoms of anemia or hypoperfusion. She has no complaints.. Pain is controlled on toradol. She is not ambulating with assistance. She is not tolerating a regular diet, as the PACU staff has kept her flat to address her hyportension. She denies vomiting, abdominal pain, cough, difficulty breathing and chest pain.. Physical Exam: Last Set of Vitals and range of vitals over past 24 hours: Last value Range last 24 hrs Temperature Temp: 97 ??F (36.1 ??C) Temp: [97 ??F (36.1 ??C)-98.1 ??F (36.7 ??C)] Heart Rate Heart Rate: 74 Heart Rate: [59-91] Blood Pressure BP: 112/50 mmHg BP: (82-116)/(33-68) Respiratory Rate Resp: 16 Resp: [16-17] SpO2 SpO2: 99 % SpO2: [92 %-100 %] Date 01/07/11 07 - 01/08/11 0659 Shift [id number] 1082-8747 24 Hour Total I N T A K E I.V. (mL/kg/hr) 4729 (10.2) 271 5000 Shift Total (mL/kg) 4729 (81.5) 271 (4.7) 5000 (86.1) O U T P U T Urine (mL/kg/hr) 780 (1.7) 160 940 Blood 20 20 Shift Total (mL/kg) 800 (13.8) 160 (2.8) 960 (16.5) Weight (kg) 58.1 58.1 58.1 58.1 Physical Exam Constitutional: She is oriented to person, place, and time. She appears well- developed and well-nourished. No distress. Cardiovascular: Normal rate and regular rhythm. Pulmonary/Chest: Breath sounds normal. No respiratory distress. She has no wheezes. She has no rales. Abdominal: Soft. She exhibits no distension. No tenderness. She has no rebound and no guarding. Hypoactive bowel sounds. Dressing clean/dry/intact with small amount serosangiunous drainage on right corner Musculoskeletal: She exhibits no edema and no tenderness. Neurological: She is alert and oriented to person, place, and time. Skin: Skin is warm and dry. She is not diaphoretic. Psychiatric: She has a normal mood and affect. Laboratory (Last 24 Hours): CBC Lab Results Component Value Date WBC 9.9 01/07/2011 Hemoglobin 10.8* 01/07/2011 Hematocrit 32.9* 01/07/2011 Platelets 183 01/07/2011 Electrolytes Lab Results Component Value Date Potassium 3.9 01/07/2011 CO2 24 01/07/2011 Renal Lab Results Component Value Date BUN 6* 01/07/2011 Creatinine 0.49* 01/07/2011 Glucose Lab Results Component Value Date Glucose Lvl 103 01/07/2011 Assessment and Plan: Heike Ramires is an 65 y.o. year old woman POD #0 s/p BSO in stable condition, pain controlled and adequate urine output. Pt is not tachycardic, H/H is stable from pre-op and appropriate for EBL. Hypotension likely due to volume depletion. Pain Control: -- continue toradol and dilaudid Cardiac: --monitor cardiovascular parameters, now stable Pulmonary: --adequate o2 sats on room air and --incentive spiriometer at bedside Gastrointestinal: no nausea or vomiting. Regular diet Genitourinary: keep herrmann in place. Fluid/ Electrolytes: IVF @ 125/hour Ambulation: out of bed and ambulate Disposition: Continue post operative care LAISHA ALBRECHT 01/07/2011 * Karma Dill MD - 01/07/2011 3:11 PM EDT Patient: Heike Ramires Procedure(s) Performed: ??SALPINGO-OOPHORECTOMY, UNILATERAL OR TERESA Patient location: PACU Post-op pain: Adequate analgesia Post-op nausea: no nausea or vomiting Last Vitals: Filed Vitals: 01/07/11 1430 BP: 103/49 Pulse: 70 Temp: Resp: Post-op cardiovascular and respiratory status: is stable - patient has received fluid boluses - at least 2 L of LR to address her low maps. She is mentatingadequately and has no deficits to indicate inadequate perfusion of vital organs. She is being watched carefully in the PACU and has also received 2 doses of 80mcg phenylephrine. Level of consciousness: awake Complications: no apparent complications Fluid Status: dehydrated * Sarah Keen RN - 01/07/2011 1:49 PM EDT Comfortable sleeping on/off * Sarah Keen RN - 01/07/2011 1:[address] Dill and Dr. Roberto aware of H&H results * Sarah Keen RN - 01/07/2011 1:[address] Roberto at bedside * Sarah Keen RN - 01/07/2011 1:00 PM EDT This was a bolus ordered by dr. dill * Sarah Keen RN - 01/07/2011 1:00 PM EDT This was a bolus ordered by dr. Robbins * Sarah Keen RN - 01/07/2011 12:[address] Robbins at bedside * Sarah Keen RN - 01/07/2011 12:[address] Robbins at bedside. Pt continues to have low bp. Labs sent. ekg complete no changes. Pain is 5/10 Incision intact. No drainage. * Sarah Keen RN - 01/07/2011 11:36 AM EDT at bedside * Sarah Keen RN - 01/07/2011 11:[address] Dill aware of bp. 1 l bolus of lr ordered * Reinaldo Robbins MD - 01/07/2011 10:16 AM EDT Post Op Note: Pt is a 65 y/o female POD 0 s/p open b/l oophorectomy. Pt HR, BP, Oxygenation and fluid status are within acceptable postoperative parameters. Please check PACU flow sheet for specifics. Pt is awake and alert. Pt denies pain, nausea, vomiting, new change in vision, peripheral weakness/numbness, chipped or broken teeth or intraoperative awareness. There are no apparent anesthetic complications. * Sarah Keen RN - 01/07/2011 10:[address] Robbins at bedside documented in this encounter H&P Notes * Molly Roberto - 01/07/2011 6:58 AM EDT No medical changes. Ready for OR. documented in this encounter Miscellaneous Notes * Miscellaneous - Elvia, Latonya - 01/11/2011 7:31 AM EDT * Discharge Summary - Laisha Albrecht MD - 01/08/2011 10:00 AM EDT Inpatient FACILITY REHAB DIRECTOR - Discharge Summary Patient Name: Heike Ramires Patient Age: 65 y.o. Birthdate: 1945 Admit date: 01/07/2011 Discharge date and time: No discharge date for patient encounter. Attending Physician: Sanchez Perez MD Discharge Diagnoses (Hospital Problems) and Secondary Diagnoses (Chronic Problems): Active Hospital Problems Diagnoses ??? Ovarian fibroma Resolved Hospital Problems Diagnoses Date Resolved Active Non-Hospital Problems Diagnoses ??? Osteoporosis ??? Trigeminal neuralgia Operations/Major Procedures: Operations: ??SALPINGO-OOPHORECTOMY, UNILATERAL OR TERESA History of Presentation: (per Dr. Perez's office note) Heike Ramires is a very nice 65-year-old white female, 4, para 4. She was in her usual state of generally good health until two weeks ago. Then, she developed fairly sudden onset of right lower quadrant pain in a crescendo-type fashion. She presented to the [facility] Emergency Room. She was admitted and underwent diagnostic procedures including blood work, CT of the abdomen and pelvis, and a pelvic ultrasound. She was discharged on pain medication. No therapeutic interventions wereemployed. She was advised to follow up. Mrs. Ramires reports that her appetite has been generally okay except slightly diminished appetite in the last two weeks since this event. She has been pain free since discharge from the hospital. Shenotes that her bowels are unchanged with chronic constipation, which is slightly worse. She uses docusate as needed and denies hematochezia or melena. She has a bowel movement every other day typically. Regarding her bladder, she notes slight increase in urinary frequency over the last six months, also noting some slight urge and stress-incontinence symptoms but no hematuria or dysuria. She denies vaginal bleeding or discharge. She notes occasional epigastric pain postprandially for the last four to five months. She denies leg swelling or other areas of pain. Gynecologic History: Menarche was age 13, irregular cycles until menopause at age 45. She had four pregnancies, four spontaneous vaginal deliveries. She used control pills for a total of four to five years. Her Pap tests were obtained regularly and were always normal, the last in 2008. Imaging Studies: I personally reviewed the imaging reports and the images themselves on the disks provided. This is remarkable for a calcified right ovary and a large mass emanating from the left cornu of the uterus, which may represent an ovarian mass versus a pedunculated fibroid with retained fluid or edema. I do not appreciate any ascites, omental disease, lymphadenopathy, or other pathologicprocesse Hospital Course: The patient tolerated the procedures well and was taken to the PACU in stable condition where she recovered quickly. POD #0 she was moved to the floor. Overnight she tolerated a regular diet, had good pain control with oral pain medication and had adequate UOP. POD #1 her herrmann was discontinued. She voided spontaneously and without evidence of retention. She ambulated with minimal to no assistance and had good pain control with po pain medications. She continued to do well and desired to go home. She was discharged to home POD#1 in stable condition. Important Studies and Lab Data: Labs: Results for orders placed during the hospital encounter of 01/07/11 (from the past 24 hour(s)) CBC (WITH DIFF) Component Value Range ??? WBC 9.9 4.0 - 10.0 (x10(3)/mcL) ??? RBC 3.66 (*) 3.93 - 5.22 (x10(6)/mcL) ??? Hemoglobin 10.8 (*) 11.2 - 15.7 (gm/dL) ??? Hematocrit 32.9 (*) 34.0 - 45.0 (%) ??? MCV 89.9 79.0 - 94.0 (fL) ??? MCH 29.5 26.6 - 32.2 (pg) ??? MCHC 32.8 32.0 - 36.5 (gm/dL) ??? Platelets 183 145 - 370 (x10(3)/mcL) ??? RDWSD 39.8 35.0 - 46.0 (fL) ??? RDWCV 12.2 10.9 - 14.4 (%) ??? MPV 9.8 9.0 - 12.0 (fL) BASIC METABOLIC PANEL (NON-FASTING) Component Value Range ??? Glucose Lvl 103 60 - 199 (mg/dL) ??? BUN 6 (*) 8 - 18 (mg/dL) ??? Creatinine 0.49 (*) 0.70 - 1.20 (mg/dL) ??? Sodium 134 (*) 135 - 145 (mmol/L) ??? Potassium 3.9 3.5 - 5.0 (mmol/L) ??? Chloride 101 98 - 107 (mmol/L) ??? CO2 24 22 - 31 (mmol/L) ??? Anion Gap 9 5 - 15 (mmol/L) ??? Calcium 7.9 (*) 8.5 - 10.5 (mg/dL) ? ? Estimated GFR >60 >=60 REFLEX LAB-A-DIFF Component Value Range ??? Neutrophils % 90.9 (*) 34.0 - 71.0 (%) ??? Neutr Abs (ANC) 9.01 (*) 1.50 - 6.30 (x10(3)/mcL) ??? Lymphocytes % 6.1 (*) 19.0 - 53.0 (%) ??? Lymphocytes Abs 0.6 (*) 1.0 - 3.6 (x10(3)/mcL) ??? Monocytes % 2.6 (*) 4.0 - 13.0 (%) ??? Monocyte Abs 0.3 0.2 - 1.0 (x10(3)/mcL) ??? Eosinophils % 0.1 0.0 - 7.0 (%) ??? Eosinophils Abs 0.0 0.0 - 0.5 (x10(3)/mcL) ??? Basophils % 0.1 0.0 - 2.0 (%) ??? Basophils Abs 0.0 0.0 - 0.2 (x10(3)/mcL) ??? Immature Gran % 0.20 0.00 - 0.66 (%) ??? Anne Gran Abs 0.02 0.00 - 0.05 (x10(3)/mcL) Studies: Frozen section: AFS1 - right tube and ovary: Spindle cell neoplasm, favor ovarian fibroma. 01/07/11 09:12 01/07/11 Verified by: Edison Whiteside MD, Pathologist Pending Studies and Lab Data: Final pathology Discharge Conditions/Prognosis: stable Discharge to: home Discharge Medications: Current Discharge Medication List New Meds Details docusate sodium (COLACE) 100 mg Take 100 mg by mouth 2 times daily. Qty: 28 capsule Refills: 0 ibuprofen (ADVIL;MOTRIN) 600 mg Take 600 mg by mouth every 6 hours. Qty: 60 tablet Refills: 0 Continued medications with revised dosing Details HYDROmorphone (DILAUDID) 2 mg Take 2 mg by mouth every 4 hours as needed for Pain. Qty: 30 tablet Refills: 0 Continued medications, unchanged Details ibandronate (BONIVA) 150 mg Take 150 mg by mouth every 30 days. Qty: 3 tablet Refills: 3 Comments: Pt states Dr. Null that you have not renewed this medication prior. My understanding you are aware of her taking this medication dosage is the same per patient discussion. carBAMazepine (TEGRETOL) 200 mg tablet Qty: Refills: cyanocobalamin (VITAMIN B-12) 1,000 mcg tablet Qty: Refills: Calcium Carbonate-Vitamin D3 (CALCIUM 600 WITH VITAMIN D3) 600 mg(1,500mg) -400 unit Chew Qty: Refills: senna-docusate (PERICOLACE) 8.6-50 mg per tablet 1 Tablet(s), PO, Twice daily,PRN Qty: Refills: Updated Allergies/ADRs: Allergies Allergen Reactions ??? Oxidized Glycerol Triesters headache ??? Methadone Hcl headaches ??? Morphine Sulfate Nausea/Vomiting ??? Codeine Phos stomach ache ??? Oxycodone Hcl severe headaches Follow-up Recommendations for Providers: Scheduled Appointments: follow up in 4-6 weeks for post op visit with Dr. Perez. Future Appointments Date Time Provider Department Center 02/05/2011 10:00 AM [id number] None Instructions Given to Patient at Discharge: Provider Instructions None PATIENT DISCHARGE INSTRUCTIONS Call your doctor if you develop: --A fever over 101 degrees --Severe pain --Heavy vaginal bleeding --Increasing pain, redness, or discharge at your incision Activity level: No heavy lifting, pushing or pulling for 6 weeks. No sexual intercourse, no tampons, nothing in the vagina for 6 weeks. Diet: You may resume your regular diet. Be sure you drink plenty of fluids. Please use colace 100-200mg twice daily for the entire time that you are taking pain medication to keep your bowel movements soft and regular. If you are constipated or have not had a bowel movement in 3 days, please use milk of magnesia (or miralax) as directed over the counter. Driving: Do not drive until you are off of all narcotic medications and you are not feeling pain; usually about 2 weeks. Shower/Bath: Showering is fine. Short baths are OK but you should avoid having any abdominal incision submerged for more than 10-15 minutes for the next 2 weeks. Wound Care: You may remove your dressing the day after you leave the hospital, if they were not removed prior to discharge. Under the dressings will be small pieces of paper tape over your incision. This tape can get wet in the shower, just ensure that you dry them well. These pieces of tape shouldfall off within 7 days; if they have not, please remove them after one week. You have stitches justunder the skin and these will dissolve on their own over the next couple of weeks. They do not needto be removed or altered. Special Physician Instructions: Pain medications include dilaudid and motrin Please use motrin 600mg every 6 hours with food around the clock for the next several days and thenafter that use it only as needed. Please use the dilaudid 2mg (1-2 tablets) every 4-6 hours as needed for pain that breaks through the motrin General Instructions None Ordered for After Discharge: Full code (post discharge) Question Response Notes Does patient have decision making capacity? Yes, Order is based on Patients wishes. Provider Contact Information: During business hours please call the Gynecologic Oncology Clinic at [phone]. After 5:00pm, or on weekends or holidays, please call the hospital coin rolling machine operator at [phone] and inform them you are a All Purpose Clerk Oncology patient. HENRIETTA NULL MD [phone] Discharge References/Attachments: Discharge References/Attachments None Signed: LAISHA ALBRECHT 01/08/2011 * Med Student Progress Note - Alannah Plata - 01/08/2011 6:28 AM EDT Inpatient Gynecological Oncology - Progress Note Admit Date: 01/07/2011 Hospital Day 1 day s/p BSO for Right ovarian mass. Likely ovarian fibroma. Problem List: - Active Non-Hospital Problems Diagnoses ??? CIS - Osteoporosis ??? CIS - Trigeminal Neuralgia 24 Hour Events: Patient doing well following surgery. Some soft systolic blood pressures overnight, but no evidenceof dizziness, lightheadedness or orthostasis. Given LR bolusses at 0041 and 0216. Patient reports some incisional and diffuse abdominal pain that is well fairly controlled on the scheduled ibuprophenand ketoralac (last dose 0600 today). OIL LEASE BUYER has been D/Angel and breakthrough pain has been managed with Dilaudid 2mg at 1900 and 0045. Herrmann was D/Angel at 2200 yesterday and the patient put out 100ml/hr in the first two hours after removal. The patient reports minimal nausea, but no vomiting. Zofran and compazine has helped. She has not had a BM nor passed any gas yet. Overall patient is feeling welland contemplating D/C to home possibly later today. Subjective: She has complains of incisional and mild diffuse lower abdominal pain.. Pain is controlled on ketorolac/ibuprophen and Dilaudid. She is ambulating with assistance. She is tolerating a regular diet. She denies vomiting, abdominal pain, fussiness, diarrhea and difficulty breathing. She has 2190 urine output with a Herrmann. She reportsno symptoms Physical Exam: Last value Range last 24 hrs Temperature Temp: 99.1 ??F (37.3 ??C) Temp: [97 ??F (36.1 ??C)-99.1 ??F (37.3 ??C)] Heart Rate Heart Rate: 86 Heart Rate: [60-114] Blood Pressure BP: 88/46 mmHg (RN NOTIFIED-JY) BP: (82-114)/(33-66) Respiratory Rate Resp: 18 Resp: [16-18] SpO2 SpO2: 94 % SpO2: [92 %-100 %] UOP: 2190 IVF: 6,695 720 Intake (ml): P.O. 720 mL I.V. 6870 Intake (ml): I.V. 2695 mL lactated ringers infusion: Volume (mL) 1475 mL lactated ringers infusion 1,000 mL: Volume (mL) 2700 mL Total In 7590 Physical Exam Constitutional: She appears well-developed and well-nourished. No distress. Cardiovascular: Normal rate, regular rhythm and normal heart sounds. Exam reveals no gallop and no friction rub. No murmur heard. Pulmonary/Chest: Effort normal and breath sounds normal. No respiratory distress. She has no wheezes. She has no rales. Abdominal: Soft. Bowel sounds are normal. She exhibits no distension. No tenderness. She has no rebound. Incision: Remains covered. Small amount of dried serosanguinous fluid extravasation on right side of dressing. No signs of erythema, ecchymosis or fluid collection. Laboratory (Last 24 Hours): Results for orders placed during the hospital encounter of 01/07/11 (from the past 24 hour(s)) FROZEN SECTION REPORT Component Value Range ??? Frozen Section Report Value: [facility] Provider: SANCHEZ PEREZ Pt. Name: HEIKE RAMIRES [facility] #: [id number] Pt. Col Date: 01/07/2011 /Sex: 1945,(65 years),Female Rec Date: 01/07/2011 LOC: [facility] FROZEN SECTION REPORT ---Frozen Section Report--- AFS1 - right tube and ovary: Spindle cell neoplasm, favor ovarian fibroma. 01/07/11 09:12 01/07/11 Verified by: Edison Whiteside MD, Pathologist The attending pathologist whose electronic signature appears on this report has reviewed all diagnostic slides in rendering the frozen section diagnosis. This intraoperative consultation should be interpreted as a preliminary diagnosis pending review of the entire specimen and special studies, if any. CBC (WITH DIFF) Component Value Range ??? WBC 9.9 4.0 - 10.0 (x10(3)/mcL) ??? RBC 3.66 (*) 3.93 - 5.22 (x10(6)/mcL) ??? Hemoglobin 10.8 (*) 11.2 - 15.7 (gm/dL) ??? Hematocrit 32.9 (*) 34.0 - 45.0 (%) ??? MCV 89.9 79.0 - 94.0 (fL) ??? MCH 29.5 26.6 - 32.2 (pg) ??? MCHC 32.8 32.0 - 36.5 (gm/dL) ??? Platelets 183 145 - 370 (x10(3)/mcL) ??? RDWSD 39.8 35.0 - 46.0 (fL) ??? RDWCV 12.2 10.9 - 14.4 (%) ??? MPV 9.8 9.0 - 12.0 (fL) BASIC METABOLIC PANEL (NON-FASTING) Component Value Range ??? Glucose Lvl 103 60 - 199 (mg/dL) ??? BUN 6 (*) 8 - 18 (mg/dL) ??? Creatinine 0.49 (*) 0.70 - 1.20 (mg/dL) ??? Sodium 134 (*) 135 - 145 (mmol/L) ??? Potassium 3.9 3.5 - 5.0 (mmol/L) ??? Chloride 101 98 - 107 (mmol/L) ??? CO2 24 22 - 31 (mmol/L) ??? Anion Gap 9 5 - 15 (mmol/L) ??? Calcium 7.9 (*) 8.5 - 10.5 (mg/dL) ? ? Estimated GFR >60 >=60 REFLEX LAB-A-DIFF Component Value Range ??? Neutrophils % 90.9 (*) 34.0 - 71.0 (%) ??? Neutr Abs (ANC) 9.01 (*) 1.50 - 6.30 (x10(3)/mcL) ??? Lymphocytes % 6.1 (*) 19.0 - 53.0 (%) ??? Lymphocytes Abs 0.6 (*) 1.0 - 3.6 (x10(3)/mcL) ??? Monocytes % 2.6 (*) 4.0 - 13.0 (%) ??? Monocyte Abs 0.3 0.2 - 1.0 (x10(3)/mcL) ??? Eosinophils % 0.1 0.0 - 7.0 (%) ??? Eosinophils Abs 0.0 0.0 - 0.5 (x10(3)/mcL) ??? Basophils % 0.1 0.0 - 2.0 (%) ??? Basophils Abs 0.0 0.0 - 0.2 (x10(3)/mcL) ??? Immature Gran % 0.20 0.00 - 0.66 (%) ??? Anne Gran Abs 0.02 0.00 - 0.05 (x10(3)/mcL) Microbiology: Blood Culture: No results found for this basename: bloodcx Urine Culture: Lab Results Component Value Date URINECULTURE Value: Patient Name: HEIKE RAMIRES Ordered By: HENRIETTA NULL MR#: [id number] LOC: LYME /Sex: 1945 (65 years), Female* 12/28/2010 Assessment: Heike Ramires is a 65 yo female psotop day #1 following BSO for an ovarian mass. 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 A Phannensteil incision was made, the patient tolerated the surgery well and she is recovering nicely. She has adequate pain control and has good post-herrmann urine output. She has yet to pass flatus, but has increasing bowel sounds. She has had soft blood pressures in the 80-90s/40-50s, however she is a slight woman with bps in the 90s/60s prior to surgery. There are no signs of bleeding and no signs of orthostasis. The patient will be monitored throughout the day for blood pressure changes. Discharge later today was discussed with the patient if she continues on her current course. Plan: - Continue to encourage ambulation - Scheduled ibuprofen and prn dilaudid for breakthough pain - Normal diet - Continue to monitor BPs - Consider D/C later today if patient continues to improve - Sutures used to close skin, so no need to schedule follow-up for staple removal - Follow-up in clinic ALANNAH PLATA 01/08/2011 * Op Note - Sanchez Perez MD - 01/07/2011 4:27 PM EDT Attending Physician: Sanchez Perez M.D. Resident: Molly Roberto M.D. Medical Student: Alannah Plata. Procedure: Bilateral salpingo-oophorectomy via Pfannenstiel incision. Preoperative Diagnosis: right-sided, solid-appearing adnexal mass. Postoperative Diagnosis: right-sided ovarian fibroma with abnormal appearance of left ovary as well. Anesthesia: General endotracheal. Fluids: 1700 mL of LR. Estimated Blood Loss: 20 mL. Urine Output: 325 mL of clear urine noted at the end of the procedure. Frozen Sent for Pathology: Right ovary, frozen consistent with ovarian fibroma. Findings: Exam under anesthesia revealed a small, mobile, anteverted uterus. Rectal exam confirmed no nodularity of the rectovaginal septum; and while a firm pelvic mass was palpable, it was noted to be very mobile. Exam on entering the pelvic cavity revealed no gross tumor, no carcinomatosis, no ascites. The patient had a large, solid, right-sided ovarian mass consistent with a fibroma, and a small, approximately 1-cm left-sided ovarian mass, also consistent with fibroma. The right tube and ovary were sent for pathologic exam. Indication: The patient is a 65-year-old female who initially presented with a pelvic pain. Imaging found a solid adnexal mass, and the possibility of ovarian malignancy was raised. Risks, benefits, as well as alternatives to the procedure were described to the patient. She desired to proceed with the indicated procedure. Procedure: The patient was taken to the Operating Room where she was placed in the supine position on the operating table. General anesthesia was induced with good effect, and the patient was repositioned to lithotomy position using Yellofin stirrups. Care was taken to maintain a neurologically neutral position. The patient's right arm was tucked at her side, and the patient's left arm was left out on an arm board. A sterile prep and drape of the perineum and abdomen was undertaken, and a time-out procedure was performed confirming the patient's identity, indicated procedure, as well as team members. A Herrmann catheter was then placed in the patient's bladder. Sterile gloves were changed, and attention was turned to the abdomen. A Pfannenstiel skin incision was then made and carried through to the underlying layer of fascia. The fascia was incised, and the fascial incision was extended laterally. The fascia was then grasped with Alethea clamps, tented, and the underlying rectus muscles dissected off. The rectus muscles were from the fascia superiorly and inferiorly and then bluntly in the midline. The peritoneum was then entered sharply, and the peritoneal incision was extended superiorly and inferiorly with good visualization of the bladder. On entering the pelvic cavity, there was no sign of carcinomatosis or ascites, and a large, approximately 9-cm, right-sided ovarian mass, which was firm in nature and appeared consistent with a fibroma, was identified. The decision was made to proceed with removal of this tube and ovary to be sent for pathologic exam. Pelvic washings were obtained by placing approximately 100 mL of sterile saline into the patient's pelvic cavity and withdrawing this fluid for permanent cytology. Attention was turned to the patient's rightside. The ovarian vessels were coagulated and transected using the LigaSure electrocautery device, and the LigaSure was then also used to coagulate and transect the uteroovarian vessels and fallopian tube, thereby freeing the patient's right Ovary and tube, which were then sent for pathologic exam. Attention was then turned to the patient's left side where the ovary was also noted to look slightly abnormal with an approximately 1-cm, firm-appearing growth that also appeared to be a fibroma. The IP ligament on the patient's left was identified. The ureter was noted to be well out of the surgical field, and the vessels were cauterized with the LigaSure and transected, and additionally a suture was also placed to ensure hemostasis of the ovarian vessels. Next the uteroovarian vessels as well as the fallopian tube were cauterized using the LigaSure device and transected. The patient's left fallopian tube and ovary were then sent for permanent pathology. Once the adnexa had been removed bilaterally and hemostasis was ensured throughout the field, frozen section confirmed that the Right ovary was indeed a fibroma, and no additional procedure was indicated at this time. The pelvic cavity was copiously irrigated, and the incision was closed with 0 PDS. The skin was closed with a subcuticular 4-0 Vicryl. The wound was sterilely dressed. Sponge, lap, and needle counts were correct times two. * OR Attestation - Sanchez Perez MD - 01/07/2011 4:24 PM EDT I was the attending physician supervising the resident in the above care and I was present with theresident for the entire procedure. * Brief Op Note - Sanchez Perez MD - 01/07/2011 4:22 PM EDT ??SALPINGO-OOPHORECTOMY, UNILATERAL OR TERESA Procedure Note Heike Ramires 01/07/2011 PRE-OP DIAGNOSIS: PELVIC MASS POST-OP DIAGNOSIS: PELVIC MASS PROCEDURE(S): Procedure(s): ??SALPINGO-OOPHORECTOMY, UNILATERAL OR TERESA ANESTHESIA: General SURGEON(S): Surgeon(s): MD MOLLY GOODWIN MD STAFF: ARON ODONNELL RN - [employer] Worker Lucia Bradley - Scrub Person ESTIMATED BLOOD LOSS: * No blood loss amount entered * DRAINS: none. TOTAL IV FLUIDS: 1700mL SPECIMENS: 1) Pelvic washings 2) Bilateral fallopian tubes/ovaries. COMPLICATIONS: none. FINDINGS: see op note DISPOSITION: awakened from anesthesia, extubated and taken to the recovery room in a stable condition, having suffered no apparent untoward event. CONDITION: doing well without problems * Miscellaneous - Provider, Scanning - 01/07/2011 6:14 AM EDT * Miscellaneous - Provider, Scanning - 01/07/2011 6:14 AM EDT documented in this encounter Plan of Treatment Upcoming Encounters Date Type Department Care Team (Late st Contact Info) Description 07/07/2024 11:00 AM EDT Office Visit Cardiology at [address] [place] [address] Lorena Lawrence MD [facility] [place] [id number] documented as of this encounter Procedures Procedure Name Priority Date/Time Associated Diagnosis Comments DIFFERENTIAL, AUTOMATED STAT 01/07/2011 1:11 PM EDT CBC (WITH DIFF) STAT 01/07/2011 1:11 PM EDT BASIC METABOLIC PANEL (NON-FASTING) STAT 01/07/2011 1:11 PM EDT EKG 12-LEAD Routine 01/07/2011 12:11 PM EDT NON-GAS TURBINE POWERPLANT MECHANIC FINAL REPORT Routine 01/07/2011 8:48 AM EDT NON-GAS TURBINE POWERPLANT MECHANIC FINAL REPORT Routine 01/07/2011 8:48 AM EDT FROZEN SECTION REPORT Routine 01/07/2011 8:48 AM EDT SURGICAL PATHOLOGY REPORT Routine 01/07/2011 8:48 AM EDT SURGICAL PATHOLOGY REPORT Routine 01/07/2011 8:48 AM EDT @SALPINGO-OOPHORECTO MY, UNILATERAL OR TERESA (WRVU 12.16) 01/07/2011 7:38 AM EDT PELVIC MASS documented in this encounter Results * (ABNORMAL) REFLEX LAB-A-DIFF (01/07/2011 1:11 PM EDT) Neutrophils % 90.9(H) 34.0 - 71.0 % CERNER MILLENNIUM Neutr Abs (ANC) 9.01(H) 1.50 - 6.30 x10(3)/mc L CERNER MILLENNIUM Lymphocytes % 6.1(L) 19.0 - 53.0 % CERNER MILLENNIUM Lymphocytes Abs 0.6(L) 1.0 - 3.6 x10(3)/mc L CERNER MILLENNIUM Monocytes % 2.6(L) 4.0 - 13.0 % CERNER MILLENNIUM Monocyte Abs 0.3 0.2 - 1.0 x10(3)/mc L CERNER MILLENNIUM Eosinophils % 0.1 0.0 - 7.0 % CERNER MILLENNIUM Eosinophils Abs 0.0 0.0 - 0.5 x10(3)/mc L CERNER MILLENNIUM Basophils % 0.1 0.0 - 2.0 % CERNER MILLENNIUM Basophils Abs 0.0 0.0 - 0.2 x10(3)/mc L CERNER MILLENNIUM Immature Gran % 0.20 0.00 - 0.66 % CERNER MILLENNIUM Comment: Immature granulocytes(IG's)percentage and absolute count will include metamyelocytes, myelocytes, and promyelocytes. Blood smears from CBCs yielding IG's will be scanned manually for concordance. If this scan disagrees with the automated IG or if promyelocytes are noted, a manual differential will be performed. Anne Gran Abs 0.02 0.00 - 0.05 x10(3)/mc L CERNER MILLENNIUM Blood specimen (specimen) 01/07/2011 1:11 PM EDT 01/07/2011 1:27 PM EDT Reinaldo Robbins MD HEMATOLOGY ORDERABLE S CERNER MILLENNIUM * (ABNORMAL) Basic Metabolic Panel (non-fasting) (01/07/2011 1:11 PM EDT) Glucose Lvl 103 60 - 199 mg/dL CERNER MILLENNIUM Comment:Diabetes: >=200 mg/d L plus symptoms BUN 6(L) 8 - 18 mg/dL CERNER MILLENNIUM Creatinine 0.49(L) 0.70 - 1.20 mg/dL CERNER MILLENNIUM Sodium 134(L) 135 - 145 mmol/L CERNER MILLENNIUM Potassium 3.9 3.5 - 5.0 mmol/L CERNER MILLENNIUM Comment: Please note: ??Patients with WBC >100,000 may have falsely elevated Potassium levels. ??For accurate Potassium quantification in these patients send serum separator tube (gold top) for subsequent determinations. ??Contact the Clinical Chemistry Laboratory if there are any questions. Chloride 101 98 - 107 mmol/L CERNER MILLENNIUM CO2 24 22 - 31 mmol/L CERNER MILLENNIUM Anion Gap 9 5 - 15 mmol/L CERNER MILLENNIUM Calcium 7.9(L) 8.5 - 10.5 mg/dL CERNER MILLENNIUM Estimated GFR >60 >=60 CERNER MILLENNIUM Comment: The National Kidney Disease Education Program (NKDEP) has recommended all laboratories report estimated GFR (eGFR) along with plasma creatinine measurements to assist you with recognition of early kidney disease. Caveats: ??Plasma creatinine should be at steady-state (unchanged within the past week). ??Patient age > = 18 years, and for Americans multiply eGFR by 1.2. At present, NKDEP does NOT recommend using [...] disease. References: http://nkdep.nih.gov/resources/NKDEP_Suggestn4Labs_0606_508.pdf http://www.kidney.org/professionals/kls/pdf/faq_gfr.pdf Blood specimen (specimen) 01/07/2011 1:11 PM EDT 01/07/2011 1:27 PM EDT Reinaldo Robbins MD CHEMISTRY ORDERABLES [facility] * (ABNORMAL) CBC (with Diff) (01/07/2011 1:11 PM EDT) WBC 9.9 4.0 - 10.0 x10(3)/mcL CERNER MILLENNIUM RBC 3.66(L) 3.93 - 5.22 x10(6)/mcL CERNER MILLENNIUM Hemoglobin 10.8(L) 11.2 - 15.7 gm/dL CERNER MILLENNIUM Hematocrit 32.9(L) 34.0 - 45.0 % CERNER MILLENNIUM MCV 89.9 79.0 - 94.0 fL CERNER MILLENNIUM MCH 29.5 26.6 - 32.2 pg CERNER MILLENNIUM MCHC 32.8 32.0 - 36.5 gm/dL CERNER MILLENNIUM Platelets 183 145 - 370 x10(3)/mcL CERNER MILLENNIUM RDWSD 39.8 35.0 - 46.0 fL CERNER MILLENNIUM RDWCV 12.2 10.9 - 14.4 % CERNER MILLENNIUM MPV 9.8 9.0 - 12.0 fL CERNER MILLENNIUM Blood specimen (specimen) 01/07/2011 1:11 PM EDT 01/07/2011 1:27 PM EDT Reinaldo Robbins MD HEMATOLOGY ORDERABLE S EFFIE SEBASTIAN * EKG 12-LEAD Is a rhythm strip needed?: No; Reason for Exam:: Hypotension (01/07/2011 12:11 PM EDT) Ventricular rate 78 BPM MUSE SYSTEM Atrial Rate 78 BPM MUSE SYSTEM P-R Interval 188 ms MUSE SYSTEM QRS Duration 86 ms MUSE SYSTEM Q-T Interval 428 ms MUSE SYSTEM QTC Calculated (Bezet) 487 ms MUSE SYSTEM Calculated P Drayton 59 degrees MUSE SYSTEM Calculated R Drayton 10 degrees MUSE SYSTEM Calculated T Drayton 36 degrees MUSE SYSTEM INTERPRETATION Normal sinus rhythm Low voltage QRS Nonspecific ST abnormality Abnormal ECG When compared with ECG of 14-DEC-2010 11:33, Vent. rate has increased BY ??26 BPM QT has lengthened Confirmed by GABRIELA, ??JENNY CONTRERAS ([id number]) on 01/07/2011 1:25:10 PM MUSE SYSTEM 01/07/2011 12:1 1 PM EDT 01/07/2011 1:25 PM EDT Reinaldo Robbins MD ECG ORDERABLES MUSE SYSTEM * Surgical Pathology Report (01/07/2011 8:48 AM EDT) Surgical Pathology Report [id number] ? Location: SDA; SA04; BB The signing pathologist has (i) examined the relevant preparation(s) for the specimen(s) and (ii) rendered or confirmed the diagnosis(es). . ?Pathology Surgical Pathology Final Report Clinical Information Specimen Submitted: A - Right tube and ovary for frozen section B - Left tube and ovary Clinical History/Diagnosis: Pelvic mass Frozen Section Diagnosis Frozen section(s) performed. ??Please refer to separate electronic frozen section report(s). Gross Description A - Labeled/Fixative: Right tube and ovary, fresh. Qty/Size/Weight: ?Single, 8.0 x 7.0 x 5.0 cm, 160 g. Tissue Description: ?? A right tube and ovary with 6.0 cm of fallopian tube, ?0.5 cm in diameter, as well as two translucent ?paratubal cysts, pedunculated and arising from the ?end of the fallopian tube. There is a large solid ?ovarian mass measuring 8.0 x 7.0 x 5.0 cm. ??Serial ?sectioning of the mass reveals a white, fibrotic cut ? surface. In addition there is a 2.0 x 2.0 x 1.0-cm ?hematoma in the parametrium between the ovarian mass ?and the fallopian tube. Sections/Processin g: ??(1) frozen section remnant; (2) paratubal cyst; ?(3-11) sales representative printing paper sections of ovarian mass; (12) ?sales representative printing paper section of fallopian tube. ?? (R12) B - Labeled/Fixative: Left tube and ovary, fresh. Qty/Size/Weight: ?Single, 4.0 x 4.0 x 2.0 cm. Tissue Description: ?? Fragment of ovary and 5.0 cm of fallopian tube. ??The ?ovary measures 3.2 x 1.2 x 1.0 cm and is lobular with ? a firm, fibrotic end. ??In addition there is a ?1.6-uj-zs-diamet er ovarian cyst. The fallopian tube ?measures 0.6 cm in diameter and is unremarkable on ?serial sectioning. ??The fimbrae are soft with no ?nodularity or masses. ??The ovary on cut section has a ? firm, fibrous nodular cut surface. Sections/Processin g: ??(1) fimbriated end of fallopian tube; (2) ?sales representative printing paper sections of fallopian tube; (3-5) ?sales representative printing paper sections of ovary. ??(R5) ??aje/DPN Microscopic Description Slides reviewed, microscopic description not recorded. Diagnosis A - Right fallopian tube and ovary (salpingo-oophorec pk): ?1. Ovarian fibroma. ?2. Fallopian tube, no histopathologic abnormalities. ?3. Paratubal cysts. B - Left fallopian tube and ovary (salpingo-oophorec pk): . Diagnosis ?1. Small ovarian fibroma. ?2. Fallopian tube, no histopathologic abnormalities. CR-0 01/09/11 JLG 01/09/11 Verified by: ? Naresh CONTRERAS, Maurice Rdz ?Pathologist ?(Electronic Signature) The attending pathologist whose signature appears on this report has reviewed all diagnostic slides and has edited the gross and/or microscopic portion of the report in rendering the final pathologic diagnosis. ? Pathology Frozen Section Report Frozen Section Report AFS1 - right tube and ovary: ?Spindle cell neoplasm, favor ovarian fibroma. 01/07/11 09:12 01/07/11 ??Verified by: ??Miesha CONTRERAS, Edison, Pathologist The attending pathologist whose electronic signature appears on this report has reviewed all diagnostic slides in rendering the frozen section diagnosis. This intraoperative consultation should be interpreted as a preliminary diagnosis pending review of the entire specimen and special studies, if any. [facility] 01/07/2011 8:48 AM EDT Sanchez Perez MD PATHOLOGY/CYTOLOGY O RDERABLES [facility] * Non-All Purpose Clerk Final Report (01/07/2011 8:48 AM EDT) Non-All Purpose Clerk Final Report [id number] ? Location: SDA; SA04; BB The signing pathologist has (i) examined the relevant preparation(s) for the specimen(s) and (ii) rendered or confirmed the diagnosis(es). . ? Pathology Non-All Purpose Clerk Cytology Final Report Clinical Information Specimen Source : ?? Pelvic Washings Pertinent Clinical Data and Significant Therapy: ?? Pelvic mass. Clinical Impression : ?? Pelvic mass. Pertinent Radiologic Findings ??: ?? None provided. Gross Description: ?? Received ??fresh, approximately 100 ml. total volume of ?? cloudy, red fluid, with light flecks. ?? Total Preparation: Liquid Based Prep 1; Cell Block 1. Interpretation Specimen submitted is satisfactory. Diagnosis Negative for Malignancy 01/08/11 ?Screened by: ? SQA ?Rescreened by: ?? JOSEPHINE,EJG 01/08/11 ?Verified by: ? Raven CONTRERAS, Joe Estrada ? Cytopathologist ? (Electronic Signature) Comment Pelvic Washings: Clusters of mesothelial cells are present. (Cell block is non-contributory). [facility] 01/07/2011 8:48 AM EDT Sanchez Perez MD PATHOLOGY/CYTOLOGY O RDERABLES [facility] * SURGICAL PATHOLOGY REPORT (01/07/2011 8:48 AM EDT) Surgical Pathology Report ? [facility] ? Provider: ?? SANCHEZ PEREZ ?Pt. Name: ?? HEIKE RAMIRES ? Acc #: ?[id number] ?Pt. ? Col Date: ?? 01/07/2011 ? /Sex: ?1945,(65 years),Female ? Rec Date: ?? 01/07/2011 ? LOC: ?[facility]A ? SURGICAL PATHOLOGY ? ---Pathologic Diagnosis--- ? A - Right fallopian tube and ovary (salpingo-oophorec pk): ? 1. Ovarian fibroma. ? 2. Fallopian tube, no histopathologic abnormalities. ? 3. Paratubal cysts. ? B - Left fallopian tube and ovary (salpingo-oophorec pk): ? 1. Small ovarian fibroma. ? 2. Fallopian tube, no histopathologic abnormalities. ? CR-0 ? 01/09/11 ? JLG ? 01/09/11 Verified by: ? Naresh CONTRERAS, Maurice Munoz. ? Pathologist ? (Electronic Signature) ? The attending pathologist whose signature appears on this report has ? reviewed all diagnostic slides and has edited the gross and/or ? microscopic portion of the report in rendering the final pathologic ? diagnosis. ? ---Frozen Section Diagnosis--- ? Frozen section(s) performed. ??Please refer to separate electronic frozen ? section report(s). ? ---Microscopic Description--- ? Slides reviewed, microscopic description not recorded. ? ---Gross Description--- ? A - Labeled/Fixative: Right tube and ovary, fresh. ? Qty/Size/Weight: ?Single, 8.0 x 7.0 x 5.0 cm, 160 g. ? Tissue Description: ?? A right tube and ovary with 6.0 cm of fallopian tube, ? 0.5 cm in diameter, as well as two translucent ? paratubal cysts, pedunculated and arising from the ? end of the fallopian tube. There is a large solid ? ovarian mass measuring 8.0 x 7.0 x 5.0 cm. ??Serial ? sectioning of the mass reveals a white, fibrotic cut ? surface. In addition there is a 2.0 x 2.0 x 1.0-cm ? hematoma in the parametrium between the ovarian mass ? and the fallopian tube. ? Sections/Processin g: ??(1) frozen section remnant; (2) paratubal cyst; ? (3-11) sales representative printing paper sections of ovarian mass; (12) ? sales representative printing paper section of fallopian tube. ?? (R12) ? [facility] ? Provider: ?? SANCHEZ PEREZ ?Pt. Name: ?? HEIKE RAMIRES ? Acc #: ?[id number] ?Pt. ? Col Date: ?? 01/07/2011 ? /Sex: ?1945,(65 years),Female ? Rec Date: ?? 01/07/2011 ? LOC: ?[facility]A ? SURGICAL PATHOLOGY ? B - Labeled/Fixative: Left tube and ovary, fresh. ? Qty/Size/Weight: ?Single, 4.0 x 4.0 x 2.0 cm. ? Tissue Description: ?? Fragment of ovary and 5.0 cm of fallopian tube. ??The ? ovary measures 3.2 x 1.2 x 1.0 cm and is lobular with ? a firm, fibrotic end. ??In addition there is a ? 1.9-ot-iz-diameter ovarian cyst. The fallopian tube ? measures 0.6 cm in diameter and is unremarkable on ? serial sectioning. ??The fimbrae are soft with no ? nodularity or masses. ??The ovary on cut section has a ? firm, fibrous nodular cut surface. ? Sections/Processin g: ??(1) fimbriated end of fallopian tube; (2) ? sales representative printing paper sections of fallopian tube; (3-5) ? sales representative printing paper sections of ovary. ??(R5) ??aje/DPN ? ---Clinical Information--- ? Specimen Submitted: ? A - Right tube and ovary for frozen section ? B - Left tube and ovary ? Clinical History/Diagnosis: ? Pelvic mass EFFIE SEBASTIAN 01/07/2011 8:48 AM EDT Sanchez Perez MD PATHOLOGY/CYTOLOGY O RDERABLES [facility] SE[facility]ST[facility] * NON-GAS TURBINE POWERPLANT MECHANIC FINAL REPORT (01/07/2011 8:48 AM EDT) Non-All Purpose Clerk Final Report ? [facility] ? Provider: ?? SANCHEZ PEREZ ?Pt. Name: ?? HEIKE RAMIRES ? Acc #: ?[id number] ?Pt. ? Col Date: ?? 01/07/2011 ? /Sex: ?1945,(65 years),Female ? Rec Date: ?? 01/07/2011 ? LOC: ?1WST ? CYTOPATHOLOGY: ??NGYN ? ---Adequacy--- ? Specimen submitted is satisfactory. ? ---Cytopathologic Diagnosis--- ? Negative for Malignancy ? 01/08/11 ?Screened by: ? SQA ? Rescreened by: ?? JOSEPHINE,EJG ? 01/08/11 ?Verified by: ? Joe Carbajal MD ?Cytopathologist ?(Electronic Signature) ? ---Comment--- ? Pelvic Washings: ? Clusters of mesothelial cells are present. ? (Cell block is non-contributory) . ? ---Clinical Information--- ? Specimen Source: ?Pelvic Washings ? Pertinent Clinical Data and Significant Therapy: ?Pelvic mass. ? Clinical Impression: ?Pelvic mass. ? Pertinent Radiologic Findings: ?None provided. ? Gross Description: ?Received fresh, approximately 100 ml. total volume of cloudy, red fluid, ? with light flecks. ?Total Preparation: Liquid Based Prep 1; Cell Block 1. EFFIE SEBASTIAN 01/07/2011 8:48 AM EDT Sanchez Perez MD PATHOLOGY/CYTOLOGY O RDERABLES EFFIE SEBASTIAN * FROZEN SECTION REPORT (01/07/2011 8:48 AM EDT) Frozen Section Report ? [facility] ? Provider: ?? SANCHEZ PEREZ ?Pt. Name: ?? HEIKE RAMIRES ? Acc #: ?[id number] ?Pt. ? Col Date: ?? 01/07/2011 ? /Sex: ?1945,(65 years),Female ? Rec Date: ?? 01/07/2011 ? LOC: ?SDA ? FROZEN SECTION REPORT ? ---Frozen Section Report--- ? AFS1 - right tube and ovary: ? Spindle cell neoplasm, favor ovarian fibroma. ? 01/07/11 09:12 ? 01/07/11 ??Verified by: ??Miesha CONTRERAS, [place], Pathologist ? The attending pathologist whose electronic signature appears on this report ? has reviewed all diagnostic slides in rendering the frozen section ? diagnosis. ? This intraoperative consultation should be interpreted as a preliminary ? diagnosis pending review of the entire specimen and special studies, if ? any. EFFIE SEBASTIAN 01/07/2011 8:48 AM EDT Sanchez Perez MD PATHOLOGY/CYTOLOGY O BRYAN EFFIE SEBASTIAN documented in this encounter Visit Diagnoses Diagnosis Ovarian fibroma- Primary Benign neoplasm of ovary documented in this encounter Administered Medications Inactive Administered Medications - up to 3 most recent administrations Medication Order MAR Action Action Date Dose Rate Site acetaminophen (TYLENOL) tablet 650 mg 650 mg, Oral, EVERY 6 HOURS PRN, Starting on Fri01/07/11 at 0945, Until Fri01/08/11 at 1303, Pain, Maximum dose of acetaminophen is 4000 mg from all sources in 24 hours., Routine Given 01/08/2011 3:05 AM EDT 650 mg carBAMazepine (TEGRETOL) tablet 200 mg 200 mg, Oral, 4 TIMES DAILY WITH MEALS & NIGHTLY, First dose on Fri01/07/11 at 2100, Until Discontinued, Pt declines generic. If this connot be accomodated by pharmacy pt may take home med., Routine Given 01/08/2011 8:42 AM EDT 200 mg Given 01/07/2011 9:00 PM EDT 200 mg docusate sodium (COLACE) capsule 100 mg 100 mg, Oral, 2 TIMES DAILY, First dose on Fri01/07/11 at 1015, Until Discontinued, Routine Given 01/08/2011 9:00 AM EDT 100 mg HYDROmorphone (DILAUDID) tablet 2 mg 2 mg, Oral, EVERY 4 HOURS PRN, Starting on Fri01/07/11 at 0946, Until Fri01/08/11 at 1303, Pain, Routine Given 01/08/2011 10:33 AM EDT 2 mg Given 01/08/2011 6:11 AM EDT 2 mg Given 01/08/2011 12:45 AM EDT 2 mg HYDROmorphone (PF) (DILAUDID) 2 mg/mL injection 0.2-0.4 mg 0.2-0.4 mg, Intravenous, EVERY 5 MIN PRN, Starting on Fri01/07/11 at 1022, Until Fri01/07/11 at 1545, Pain, For moderate pain give: 0.2 mg every 5 minute prn For severe pain give: 0.4 mg every 5 minutes prn Maximum dose: 4 mg per hour Hold for respiratory rate less than 10 per minute., PACU Recovery, Routine Given 01/07/2011 2:39 PM EDT 0.2 mg Given 01/07/2011 12:00 PM EDT 0.2 mg Given 01/07/2011 11:31 AM EDT 0.4 mg ketorolac (TORADOL) injection 30 mg 30 mg, Intravenous, EVERY 6 HOURS SCHEDULED, 4 doses, First dose on Fri01/07/11 at 1200, Last dose on Fri01/08/11 at 0600, Routine Given 01/08/2011 6:00 AM EDT 30 mg Right Arm Given 01/08/2011 12:40 AM EDT 30 mg R ight Arm Given 01/07/2011 6:55 PM EDT 30 mg lactated ringers 1,000 mL IV bolus Intravenous, ONCE, 1 dose, On Fri01/07/11 at 1530 Given 01/07/2011 12:00 PM EDT lactated ringers infusion 125 mL/hr, Intravenous, CONTINUOUS, Starting on Fri01/07/11 at 1015, Until Fri01/08/11 at 1303 New Bag 01/08/2011 2:16 AM EDT 125 mL/hr 125 mL/hr New Bag 01/08/2011 12:41 AM EDT 125 mL/hr 125 mL/hr R ight Arm New Bag 01/07/2011 6:23 PM EDT 125 mL/hr 125 mL/hr lactated ringers infusion 200 mL/hr, Intravenous, CONTINUOUS, Starting on Fri01/07/11 at 1415, Until Fri01/07/11 at 1545, PACU Recovery Bolus from Bag 01/07/2011 11:00 AM EDT 200 mL/hr 200 mL/hr ondansetron (ZOFRAN) injection 4 mg 4 mg, Intravenous, EVERY 30 MIN PRN, 2 doses, Starting on Fri01/07/11 at 0944, Until Tu01/08/11 at 1303, Nausea, Vomiting, May repeat dose once in 30 minutes if no relief from previous dose., Routine Given 01/07/2011 10:30 PM EDT 4 mg PHENYLephrine (NOE-SYNEPHRINE) injection 0.1 mg 0.1 mg (80 mcg), Intravenous, ONCE, 1 dose, On Fri01/07/11 at 1530, PACU Recovery, Routine Given 01/07/2011 12:00 PM EDT 80 mcg prochlorperazine (COMPAZINE) injection 5 mg 5 mg, Intravenous, EVERY 30 MIN PRN, 2 doses, Starting on Fri01/07/11 at 0944, Until Tu01/08/11 at 1303, Nausea, Nausea/vomiting, May repeat in 30 minutes if no relief from previous dose. HOLD if patient is sedated. Maximum dose is 40 mg in 24 hours., Routine Given 01/07/2011 5:19 PM EDT 5 mg documented in this encounter Active and Recently Administered Medications Times are shown in EDT. Scheduled Medication Order 01/06/2011 01/07/2011 01/08/2011 carBAMazepine (TEGRETOL) tablet 200 mg (CANCELED) 200 mg, Oral, 4 TIMES DAILY WITH MEALS & NIGHTLY, First dose on Fri01/07/11 at 2100, Until Discontinued, Pt declines generic. If this connot be accomodated by pharmacy pt may take home med., Routine 2100 (Given - Provider: Lucy Khan RN) 0842 (Given - Provider: Nicky Ybarra RN) ceFAZolin (ANCEF) 2g in dextrose 5% 100mL (COMPLETED) 2 g, Intravenous, ONCE, 1 dose, On Fri01/07/11 at 0730, Administer over 30 Minutes, Redose after 4 hours., Day of Surgery (Day of Procedure) 0730 (Due)0750 (Given - Provider: Karma Dill MD) docusate sodium (COLACE) capsule 100 mg 100 mg, Oral, 2 TIMES DAILY, First dose on Fri01/07/11 at 1015, Until Discontinued, Routine 1015 (Due)2100 (Not Given - Provider: Lucy Khan RN - Reason: Patient/family refused - Comment: refused due to nausea) 0900 (Given - Provider: Nicky Ybarra RN) heparin (porcine) subcutaneous injection 5,000 Units (COMPLETED) 5,000 Units, Subcutaneous, ONCE, 1 dose, On Fri01/07/11 at 0730, Day of Surgery (Day of Procedure), Routine 0730 (Due)0805 (Given - Provider: Karma Dill MD) ibuprofen (ADVIL;MOTRIN) tablet 600 mg 600 mg, Oral, EVERY 6 HOURS SCHEDULED, First dose on Fri01/07/11 at 1200, Until Discontinued, Begin after the Ketorolac is discontinued, Routine 1200 (Due)1800 (Not Given - Provider: Lucy Khan RN - Reason: Contraindicated - Comment: given IV toradol) 0030 (Not Given - Provider: Lucy Khan RN - Reason: Contraindicated)0600 (Not Given - Provider: Mignon Calvillo RN - Reason: Order parameters not met) ketorolac (TORADOL) injection 30 mg (CANCELED) 30 mg, Intravenous, EVERY 6 HOURS SCHEDULED, 4 doses, First dose on Fri01/07/11 at 1200, Last dose on Fri01/08/11 at 0600, Routine 1200 (Not Given - Provider: Sarah Keen RN - Reason: Order parameters not met - Comment: patient received toradol in or at 1000. pharmacy notified)1855 (Given - Provider: Lucy Khan RN) 0040 (Given - Provider: Mignon Calvillo RN)0600 (Given - Provider: Mignon Calvillo RN) lactated ringers 1,000 mL IV bolus (COMPLETED) Intravenous, ONCE, 1 dose, On Fri01/07/11 at 1530 1200 (Given - Provider: Sarah Keen RN)1530 (Due) PHENYLephrine (NOE-SYNEPHRINE) injection 0.1 mg (COMPLETED) 0.1 mg (80 mcg), Intravenous, ONCE, 1 dose, On Fri01/07/11 at 1530, PACU Recovery, Routine 1200 (Given - Provider: Sarah Keen RN)1530 (Due) Continuous Medication Order 01/06/2011 01/07/2011 01/08/2011 lactated ringers infusion (CANCELED) 125 mL/hr, Intravenous, CONTINUOUS, Starting on Fri01/07/11 at 1015, Until Fri01/08/11 at 1303 1015 (New Bag - Provider: Sarah Keen RN)1823 (New Bag - Provider: Lucy Khan RN) 0041 (New Bag - Provider: Mignon Calvillo RN)0216 (New Bag - Provider: Negrita Ortiz RN) lactated ringers infusion (CANCELED) 200 mL/hr, Intravenous, CONTINUOUS, Starting on Fri01/07/11 at 1415, Until Fri01/07/11 at 1545, PACU Recovery 1100 (Bolus from Bag - Provider: Sarah Keen RN - Comment: bolus ordered by )1415 (Due) PRN Medication Order 01/06/2011 01/07/2011 01/08/2011 acetaminophen (TYLENOL) tablet 650 mg (CANCELED) 650 mg, Oral, EVERY 6 HOURS PRN, Starting on Fri01/07/11 at 0945, Until Fri01/08/11 at 1303, Pain, Maximum dose of acetaminophen is 4000 mg from all sources in 24 hours., Routine 0305 (Given - Provid er: Mignon Calvillo RN) HYDROmorphone (DILAUDID) tablet 2 mg 2 mg, Oral, EVERY 4 HOURS PRN, Starting on Fri01/07/11 at 0946, Until Fri01/08/11 at 1303, Pain, Routine 1904 (Given - Provider: Lucy Khan RN - Comment: incisional) 0045 (Given - Provider: Mignon Calvillo RN)0611 (Given - Provider: Mignon Calvillo RN)1033 (Given - Provider: Nicky Ybarra RN) HYDROmorphone (PF) (DILAUDID) 2 mg/mL injection 0.2-0.4 mg (CANCELED) 0.2-0.4 mg, Intravenous, EVERY 5 MIN PRN, Starting on Fri01/07/11 at 1022, Until Fri01/07/11 at 1545, Pain, For moderate pain give: 0.2 mg every 5 minute prn For severe pain give: 0.4 mg every 5 minutes prn Maximum dose: 4 mg per hour Hold for respiratory rate less than 10 per minute., PACU Recovery, Routine 1037 (Given - Provider: Sarah Keen RN)1048 (Given - Provider: Sarah Keen RN)1054 (Given - Provider: Sarah Keen RN)1102 (Given - Provider: Sarah Keen RN)1110 (Given - Provider: Sarah Keen RN)1115 (Given - Provider: Sarah Keen RN)1122 (Given - Provider: Sarah Keen RN)1131 (Given - Provider: Sarah Keen RN)1200 (Given - Provider: Sarah Keen RN)1439 (Given - Provider: Sarah Keen RN) ondansetron (ZOFRAN) injection 4 mg (CANCELED) 4 mg, Intravenous, EVERY 30 MIN PRN, 2 doses, Starting on Fri01/07/11 at 0944, Until Fri01/08/11 at 1303, Nausea, Vomiting, May repeat dose once in 30 minutes if no relief from previous dose., Routine 2230 (Given - Provider: Mignon Calvillo RN) prochlorperazine (COMPAZINE) injection 5 mg (CANCELED) 5 mg, Intravenous, EVERY 30 MIN PRN, 2 doses, Starting on Fri01/07/11 at 0944, Until Fri01/08/11 at 1303, Nausea, Nausea/vomiting, May repeat in 30 minutes if no relief from previous dose. HOLD if patient is sedated. Maximum dose is 40 mg in 24 hours., Routine 1719 (Given - Provider: Nazanin Mosley RN) documented in this encounter Care Teams Inorganic Chemistry Teacher Relationship Specialty Start Date End Date Henrietta Null MD [facility] [address] [facility] [place] [address] PCP - General 3/24/11 8/10/20 documented as of this encounter
--- OUTSIDE RECORDS SUMMARY | 2024-04-23 12:18 | XMS_ITS | Encounter Summary ---
Author Organization [facility] [place] [address] Care Team Providers Care Wind Commissioning Technician Name Role Phone Henrietta Null MD Primary Care Provider [phone] Reason for Visit * Reason Comments Follow-up from dexa-scan and m edication Encounter Details Date Type Department Care Team (Late st Contact Info) Description 04/10/2011 4:20 PM EDT Follow-Up Internal Medicine at [address] [address] Henrietta Null MD [facility] [place] [address] Trigger finger (Primary Dx); Osteoporosis Discharge Disposition: Home Social [...] Sign Reading Time Taken Comments Blood Pressure 113/64 04/10/2011 4:06 PM EDT Pulse 64 04/10/2011 4:06 PM EDT Temperature - - Respiratory Rate - - Oxygen Saturation - - Inhaled Oxygen Concentration - - Weight 58.1 kg (128 lb) 04/10/2011 4:06 PM EDT Height - - Body Mass Index 26.3 01/07/2011 6:11 AM EDT documented in this encounter Patient Instructions * Patient Instructions* Henrietta Null MD - 04/10/2011 4:48 PM EDT - Massage the palm and base of the fingers with lanolin cream for five minutes. Stretch the affected fingers back with gentle pressure. Perform sets of 15 to 20 per day -Cyrus tape fingers at night-time documented in this encounter Progress Notes * Henrietta Null MD - 04/10/2011 7:26 PM EDT Subjective: Patient ID: Heike Ramires is a 66 y.o. female. HPI Here for f/up of recent dexa scan which showed osteoporosis. In a note I had written to pt, recommended staying on boniva, which she had been taking since 2005. Had asked her to come in to discuss further testing to determine if there were any secondary causes of osteoporosis. Pt states when she was first diagnosed, she was told it was related to chronic tegretol use. Denies h/o endocrine disease. 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 Also with pain in 2nd and 3rd fingers of R hand. Each morning awakens with fingers flexed and it isquite painful to bend them back straight. Problem does not continue throughout day. 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 Review of Systems Constitutional - no fevers, chills, weight loss or gain, fatigue HEENT - No difficulty swallowing, hearing, No nasal congestion or postnasal drip Respiratory - No SOB, KRUGER, wheeze, cough, sputum production Cardiovascular - No CP, palpitations, angina, KRUGER, SOB Gastrointestinal - No abdominal pain, nausea, GERD, constipation, diarrhea, blood in stool - no difficulty urinating, incontinence or dysuria. Musculoskeletal - above Skin - no rashes All other systems negative Objective: Physical Exam General - Pleasant NAD R hand - + fullness, with tenderness at base of second>third finger over metatarsal head. Full rom at fingers with no triggering. Assessment and Plan: Osteoporosis - discussed need to cont with boniva for at least 2 more years for total 6 years at which time we will check dexa with plans to take drug holiday. Will cont ca/vit d and regular exercise, discussed that it is possible that tegretol had role in osteoporosis but that I would recommend tsh, pth and vit d levels to r/o other causes. Early Trigger finger - trial of conservative therapy with massage on regular basis throughout day as well as cyrus taping at night to decrease movement. Discussed that if no improvement would recommend referral to hand surgery for possible steroid injection. documented in this encounter Plan of Treatment Upcoming Encounters Date Type Department Care Team (Late st Contact Info) Description 07/07/2024 11:00 AM EDT Office Visit Cardiology at [address] [place] [address] Lorena Lawrence MD [facility] [place] [address] documented as of this encounter Procedures Procedure Name Priority Date/Time Associated Diagnosis Comments PTH Routine 04/10/2011 5:32 PM EDT Osteoporosis VITAMIN D, 25-HYDROXY Routine 04/10/2011 5:32 PM EDT Osteoporosis TSH Routine 04/10/2011 5:32 PM EDT Osteoporosis CALCIUM Routine 04/10/2011 5:32 PM EDT Osteoporosis documented in this encounter Results * Vitamin D2 and D3 25 Hydroxy (04/10/2011 5:32 PM EDT) 25-Hydroxy D2 <4.0 ng/mL [facility] Comment: Test Performed by: [facility] [address] [address] Materials Intern: Yareli Schumacher, Ph.D. 25-Hydroxy D3 31 ng/mL [facility] Comment: Test Performed by: [facility] [address] [address] Materials Intern: Yareli Schumacher, Ph.D. 25-OH Vit D Total 31 ng/mL [facility] Comment: -- REFERENCE VALUE -- 25-HYDROXY D TOTAL (D2+D3) Optimum levels in the normal population are 25-80 Test Performed by: [facility] [place] [address] Materials Intern: Yareli Schumacher, Ph.D. Blood specimen (specimen) 04/10/2011 5:32 PM EDT 04/10/2011 7:15 PM EDT Henrietta Null MD CHEMISTRY ORDERABLES Performing Organization Address City/[facility] Co de Phone Number [facility] * Calcium (04/10/2011 5:32 PM EDT) Calcium 8.7 8.5 - 10.5 mg/dL [facility] Blood specimen (specimen) 04/10/2011 5:32 PM EDT 04/10/2011 5:52 PM EDT Henrietta Null MD CHEMISTRY ORDERABLES Performing Organization Address [facility] Co de Phone Number [facility] * (ABNORMAL) PTH (04/10/2011 5:32 PM EDT) Pathologist [facility] PTH 111(H) 15 - 65 pg/mL [facility] Blood specimen (specimen) 04/10/2011 5:32 PM EDT 04/10/2011 5:52 PM EDT Henrietta Null MD CHEMISTRY ORDERABLES Performing Organization Address [facility] Co de Phone Number [facility] * TSH (04/10/2011 5:32 PM EDT) Pathologist [facility] TSH 2.95 0.27 - 4.20 mcIU/mL [facility] Blood specimen (specimen) 04/10/2011 5:32 PM EDT 04/10/2011 5:52 PM EDT Henrietta Null MD CHEMISTRY ORDERABLES [facility] documented in this encounter Visit Diagnoses Diagnosis Trigger finger- Primary Trigger finger (acquired) Osteoporosis Osteoporosis, unspecified documented in this encounter Care Teams Wind Commissioning Technician Relationship Specialty Start Date End Date Henrietta Null MD [facility] [address] [facility] [place] [address] PCP - General 12/20/10 05/08/20 documented as of this encounter
--- OUTSIDE RECORDS SUMMARY | 2024-04-23 12:18 | XMS_ITS | Encounter Summary ---
Author Organization [facility] [place] [address] Care Team Providers Care Drill Press Operator For Metal Name Role Phone Henrietta Null MD Primary Care Provider [phone] Reason for Visit * Reason Onset Date Comments Post-op Problem 01/22/2011 ? if okay to dri ve her car Encounter Details Date Type Department Care Team (Late st Contact Info) Description 01/22/2011 Telephone [place] [phone] [facility] [place] [address] Post-op Problem (? if okay to drive her car) Social History Tobacco Use Types Packs/Day Years Used Date Smoking Tobacco: Never Alcohol Use Standard Drinks/Week Comments No 0 (1 standard drink = 0.6 oz pur e alcohol) Sex and Gender Information Value Date Recorded Sex Assigned at Not on file Gender Identity Not on file Sexual Orientation Not on file documented as of this encounter Miscellaneous Notes * Telephone Encounter - Vani Mobley RN - 01/22/2011 5:08 PM EDT Pt called to ask if she may drive her automobile. I only want to go a short distance, but I need to buy some new clothes. Pt denies any pain or any drainage from her incision. No pain med needed. Pt stated that her car has an automatic transmission, so she will not need to shift. Scheduled to RTCon 02/06/2011. Pt's concern discussed with Ni Macario APRN. Per Ni, pt may drive if sheis not taking any pain medication. (2 weeks post op). Pt instructed to use caution while driving, so as to not strain her abdominal muscles. I have power steering in my car. Pt also cautioned aboutany heavy lifting, pushing or pulling, especially with shopping carts or lifting shopping bags. documented in this encounter Plan of Treatment Upcoming Encounters Date Type Department Care Team (Late st Contact Info) Description 07/07/2024 11:00 AM EDT Office Visit Cardiology at [address] [phone] Lorena Lawrence MD [facility] [place] [address] documented as of this encounter Visit Diagnoses Not on filedocumented in this encounter Care Teams Drill Press Operator For Metal Relationship Specialty Start Date End Date Henrietta Null MD [facility] [address] [place] [address] PCP - General 12/20/10 05/08/20 documented as of this encounter
--- OUTSIDE RECORDS SUMMARY | 2024-04-23 12:18 | XMS_ITS | Encounter Summary ---
Author Organization [facility] [place] [address] Care Team Providers Care Pad Hand Name Role Phone Henrietta Null MD Primary Care Provider [phone] Reason for Visit * Reason Onset Date Comments Abdominal Pain 11/27/2011 Encounter Details Date Type Department Care Team (Late st Contact Info) Description 11/27/2011 Telephone Internal Medicine at [address] [address] Carol Choi RN Abdominal Pain Social History Tobacco Use Types Packs/Day Years [...] Telephone Encounter - Carol Choi RN - 11/27/2011 4:[address] Null an appointment made for her tomorrow morning. Patient instructed to go to the ER if necessary tonight. * Telephone Encounter - Carol Choi RN - 11/27/2011 4:05 PM EST Patient states that she started to feel ill on Sat. And developed diarrhea all night. Since then she has had lower abd. Pain on and off since which has been quite painful. 9/10 when it gets bad especially at night. Feels like I need to go the the bathroom all of the time. I thought it was a urine infection so I got Monistat 3 day treatment but it didn't get better. Denies fever/chills/N/V. No further diarrhea. No black or tarry stools. Able to eat and drink. No lightheadedness/dizziness. Denies pain/burning on urination but when she put the Monistat supp. In it burned. Discussed need to go to the ER to be eval. But states that she has not insurance until tomorrow and cannot go to the ER and create a bill she cannot afford to pay. Will discuss with Dr. Null and get back to the patient. documented in this encounter Plan of Treatment Upcoming Encounters Date Type Department Care Team (Late st Contact Info) Description 07/07/2024 11:00 AM EDT Office Visit Cardiology at [address] [phone] [facility] [place] [address] documented as of this encounter Visit Diagnoses Not on filedocumented in this encounter Care Teams Pad Hand Relationship Specialty Start Date End Date Henrietta Null MD [facility] [address] [place] [address] PCP - General 12/20/10 05/08/20 documented as of this encounter
--- OUTSIDE RECORDS SUMMARY | 2024-04-23 12:18 | XMS_ITS | Encounter Summary ---
Author Organization [facility] Address [facility] [place] [address] Care Team Providers Care Human Resources Technician Name Role Phone Henrietta Null MD Primary Care Provider [phone] Reason for Referral * Surgical (Routine) - Closed Specialty Diagnoses / Procedures Referred By Evelio mathis Referred To Contact Plastic Surgery Diagnoses Neoplasm of unspecified nature of bone, soft tissue, and skin Luis Alberto Collins MD [facility] [place] [address] [facility] Plastic Surg [address] [place] [id number] Referral ID Status Reason Start Date Expiration Date V isits Requested Visits Authorized [id number] Closed Consult, Test & Treat 04/15/2012 10/12/2012 1 1 Reason for Visit * Reason Comments Procedure Encounter Details Date Type Department Care Team (Latest Contact Info) Description 04/15/2012 10:00 AM EDT Procedure [place] [address] Luis Alebrto Collins MD [facility] [place] [address] Neoplasm of unspecified nature of bone, soft [...] Sign Reading Time Taken Comments Blood Pressure 108/66 04/15/2012 9:42 AM EDT Pulse - - Temperature - - Respiratory Rate - - Oxygen Saturation - - Inhaled Oxygen Concentration - - Weight - - Height - - Body Mass Index - - documented in this encounter Patient Instructions * Patient Instructions* Aranza Trujillo LPN - 04/15/2012 9:40 AM EDT Images from the original note were not included. Section of Dermatology Treatment and Wound Care Instructions Wound Care Instructions: 1. You will need to keep the wound dry and covered for 48 hour 2. Remove bandage and clean the area with soap and water, gently pat the area dry. 3. Apply small amount of Vaseline to the area, cover with a Band-Aid until wound is healed. 4. A small amount of yellow drainage is part of normal healing, the wound is not considered healed until the drainage stops. It may take up to 3 - 4 weeks depending upon the area biopsied 5. Signs of infection include increased tenderness, pain, drainage or redness that becomes hard or swollen surrounding the wound 6. If bleeding occurs hold pressure for 15 minutes, if still bleeding than call our office 7. Please call our office if you have further questions or concerns. [phone]. After 5 PM, holidays and weekends call [phone] and ask for the Comb Tender educational fundraising director. 8. Sutures to be removed in 10-12 days 9. No heavy lifting Over 10 pounds ( a gallon of milk), pushing pulling for the next 2-3 weeks. Doctor: Dennis Cobian documented in this encounter Progress Notes * Efraín Rogers III, MD - 04/15/2012 5:33 PM EDT I was the supervising physician working with dermatology resident Dr. Luis Alberto Collins in the dermatology clinic during this patient visit. The level of Resident supervision for this patient visit was indirect supervision with direct supervision immediately available. (definition: [facility] GME Policy Statement on Graduate Medical Education, Supervision of Graduate Medical Trainees) I was immediately available to Dr. Collins for questions and discussion regarding this visit. I have reviewed his encounternote details and level of service. * Luis Alberto Collins MD - 04/15/2012 11:11 AM EDT Dermatology Resident Surgical Procedure Note Surgeon: LUIS ALBERTO COLLINS MD Attending Physician: Electronic Assembler: Ms. Ramires is a 67 y.o. year old female, referred by Dr. Joshi for the excision of an atypical melanocytic lesion on the left dorsal foot and R upper back No changes in health since last visit. Suspected Diagnosis/Previous Biopsy Results: 02/06 (done today) ---Pathologic Diagnosis--- A - Skin, right upper back, shave biopsy: Compound dysplastic nevus with severe atypia, peripheral margins appear negative in the plane of sections examined. Focally involved hair follicle is at the deep biopsy edge. 01/31/12 (not done today) ---Pathologic Diagnosis--- Skin, left dorsal foot, shave biopsy: Severely atypical lentiginous and nested junctional melanocytic proliferation in sun-damaged skin, the edges of the specimen are free of lesion in the planes of section examined, (see Comment). ---Comment--- There are atypical and occasionally multinucleate melanocytes present along the dermoepidermal junction. This represents at least an evolving severely atypical nevus. We cannot exclude an evolving early melanoma in situ. Multiple deeper levels have been examined. Drs. Bell, Jason, and Bo have reviewed this case and agree with the diagnosis. After discussion with Dr. Rogers and Dr. Solis, it was decided that for the foot lesion, margins forMIS would be necessary (0.5cm) and likely this would be best performed by plastic surgery incase a graft is needed (minimal tissue elasticity on the dorsal foot). It was decided that we would proceedwith the Right back lesion and refer her to plastics for the foot (also for a lesion on the palm gloria t needs an excisional biopsy) Procedure: A. Excision of benign lesion, original lesion size: 5mm Description of Lesion: pink atrophic papule Margins: 0.3 cm Total size: 1.1 x 1.1 cm Intermediate repair, length 3.4 cm Site: right upper back Suture: 4-0 monocryl, 4-0 prolene Anesthesia used: lido + epi Discussed treatment, expectations, need for follow-up. Informed consent obtained. See CIS for current medications, drug sensitivities and vital signs. Sterile skin prep performed. Local anesthesia: buffered 1% lidocaine with 1/100,000 epinephrine. The excision was designed with clinically clear-appearing margins of at least 0.3 cm in order to remove the lesion. The lesion was excised down to the level of subcutis. Undermining of wound edges was performed to allow for appropriate approximation. An intermediate closure was required in order toclose potential space and to reduce the risk of dehiscence. Hemostasis was achieved. A layered closure was performed. Multiple buried absorbable sutures were placed to reappose deep fat. The epidermis and dermis were reapposed using monofilament suture. There were no complications; the patient tolerated the procedure well. Specimen to Pathology. The wound was dressed. Post-procedure expectations (including discomfort management), wound care and activity restrictions were reviewed. Patient will be notified by letter or phone call of pathology results. Suture removal: 10-[address] Plastic surg referral as described above. RTC as scheduled with Primary Comb Tender, Dr. Joshi. LUIS ALBERTO COLLINS MD Resident in Dermatology Patient was seen and discussed with the Supervising Physician who was not present during the procedure: Efraín Rogers MD Section of Dermatology documented in this encounter Miscellaneous Notes * Miscellaneous - Hollis Director Audience Marketing - 04/22/2012 8:18 PM EDT documented in this encounter Plan of Treatment Upcoming Encounters Date Type Department Care Team (Late st Contact Info) Description 07/07/2024 11:00 AM EDT Office Visit Cardiology at [address] [place] [phone] Lorena Lawrence MD [facility] [place] [address] Scheduled Referrals Name Type Priority Associated Diagnoses Orde r Schedule REFERRAL TO PLASTIC SURGERY Outpatient Referral Routine Neoplasm of unspecified nature of bone, soft tissue, and skin Ordered: 04/15/2012 documented as of this encounter Procedures Procedure Name Priority Date/Time Associated Diagnosis Comments SURGICAL PATHOLOGY REPORT Routine 04/15/2012 12:15 PM EDT SPECIMEN TO PATHOLOGY (NON-OR) Routine 04/15/2012 12:00 AM EDT Neoplasm of unspecified nature of bone, soft tissue, and skin documented in this encounter Results * SURGICAL PATHOLOGY REPORT (04/15/2012 12:15 PM EDT) Surgical Pathology Report ? [facility] ? Provider: ?? [facility] III, EFRAÍN Pt. Name: ?? HEIKE RAMIRES ?A ? Acc #: ?[id number] ? Pt. ? Col Date: ?? 04/15/2012 ? /Sex: ?1945,(67 years),Female ? Rec Date: ?? 04/15/2012 ? LOC: ?4M ? SURGICAL PATHOLOGY ? ---Pathologic Diagnosis--- ? Skin, Right upper back, excision: ?1. ??Scar, consistent with prior surgical procedure. ?2. ??There is no residual lesion. ? CR-0 ? 04/16/12 ? JBB ? 04/16/12 Verified by: ? Santhosh Mitchell MD ? [...] with the patient's name, formalin. ? Qty/Size/Weight: ?Single, 2.5 x 1.1 x 1.0 cm. ? Tissue Description: ?? Ellipse of light brown skin with a central, 0.5-cm, ? white scar. ? Sections/Processing: ??The specimen is inked and serially sectioned. ? The ends are submitted in (1); the remainder of ? the specimen submitted in (2-4). ??(T4) ??aje/SNS ? ---Clinical Information--- ? Specimen Submitted: ? A - Right upper back, excision (1) ? Clinical History/Diagnosis: ? 5-mm pink atrophic papule / re-excision of severely atypical lesion ? previously biopsied [id number] [facility] 04/15/2012 12:1 5 PM EDT Efraín Rogers III, MD PATHOLOGY/CYTOL OGY ORDERABLES EFFIE SEBASTIAN * Specimen to Pathology (NON-OR) (04/15/2012 12:00 AM EDT) AP Specimen 04/15/2012 04/15/2012 10 :36 AM EDT Narrative EFFIE SEBASTIAN - 04/15/2012 10:36 AM EDT Specimen requisition ordered. ??Separate Pathology report to follow Efraín Rogers III, MD PATHOLOGY/CYTOL OGY ORDERABLES Performing Organization Address [facility] Co de Phone Number EFFIE SEBASTIAN documented in this encounter Visit Diagnoses Diagnosis Neoplasm of unspecified nature of bone, soft tissue, and skin- Primary documented in this encounter Care Teams Human Resources Technician Relationship Specialty Start Date End Date Henrietta Null MD [facility] [address] [facility] [place] [address] PCP - General 12/20/10 05/08/20 documented as of this encounter
--- OUTSIDE RECORDS SUMMARY | 2024-04-23 12:18 | XMS_ITS | Encounter Summary ---
Author Organization [facility] [place] [address] Care Team Providers Care Critical Care Paramedic Name Role Phone Henrietta Null MD Primary Care Provider [phone] Reason for Visit * Reason Onset Date Comments Results 02/20/2012 Encounter Details Date Type Department Care Team (Late st Contact Info) Description 02/20/2012 Telephone [place] [address] Cecilia Joshi MD [facility] [place] [address] Results Social History Tobacco Use Types Packs/Day [...] Miscellaneous Notes * Telephone Encounter - Irma Estrella - 02/20/2012 10:[address] Joshi, Please call Ms. Ramires at work til 2:30pm at [phone] regarding her biopsy result. If you call her after 2:30pm please call her at [phone]. She had an appointment on 02/07/12 at 4:00pm. Thank you, Irma Called patient to discuss biopsy results showing severely atypical nevi in 3 biopsies. Discussed that again although not melanoma, complete excision is required. Discussed that the hand biopsy was not deep enough to adequately assesss, and that this will need to be sampled again. Patient voiced understanding and agrees with plan. Cecilia Joshi MD PGY-2 documented in this encounter Plan of Treatment Upcoming Encounters Date Type Department Care Team (Late st Contact Info) Description 07/07/2024 11:00 AM EDT Office Visit Cardiology at [address] [place] [phone] Lorena Lawrence MD [facility] [place] [address] documented as of this encounter Visit Diagnoses Not on filedocumented in this encounter Care Teams Critical Care Paramedic Relationship Specialty Start Date End Date Henrietta Null MD [facility] [address] [facility] [place] [address] PCP - General 12/20/10 05/08/20 documented as of this encounter
--- OUTSIDE RECORDS SUMMARY | 2024-04-23 12:18 | XMS_ITS | Encounter Summary ---
Author Organization [facility] [place] [address] Care Team Providers Care Joiner Helper Name Role Phone Henrietta Null MD Primary Care Provider [phone] Encounter Details Date Type Department Care Team (Late st Contact Info) Description 02/26/2012 8:15 AM EDT Follow[place] [address] Carmita Senior, OT [facility] PHYSICAL MEDICINE & [place] [address] Trigger fingers, left thumb and ring, right [...] as of this encounter Progress Notes * Carmita Senior, OT - 02/28/2012 9:46 AM EDT OCCUPATIONAL THERAPY PROGRESS NOTE CERTIFICATION PERIOD: 02/06/12 - 03/25/12 REFERRAL SOURCE: Mushtaq Mann PA-C ATTENDING: Dr. Gomez Laboy VISIT# 4 DIAGNOSIS: 1. Trigger fingers, left thumb and ring, right ring (727.03B) DATE OF INJURY: Onset of symptoms approximately 6 months ago DATE OF SURGERY: none NEXT MD FOLLOW UP: 03/25/12 TOTAL TREATMENT TIME: 45 Minutes TIMED CODE TREATMENT TIME: 45 minutes CURRENT HISTORY: Heike Ramires is a 67 y.o. 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 Patient reported [...] into composite flexion and extension Ice massage left thumb and right ring finger 2 minutes ASSESSMENT: Heike Ramires continues to report decreased triggering with her fingers. Palpable tenosynovitis is noted more prominently in the thumb than the fingers. She is having little to no painin the fingers and gradual lessening of aching in her thumb. Nursing Home Goals (to be met by discharge): Heike [...] 6 week(s) to progress toward short and long-term goals. Soft tissue mobilization as therapeutically necessary [...] AM EDT Office Visit Cardiology at [address] [address] Lorena Lawrence MD [facility] [place] [address] documented as of this encounter Visit Diagnoses Diagnosis Trigger fingers, left thumb and ring, right ring- Primary Trigger finger (acquired) documented in this encounter Care Teams Joiner Helper Relationship Specialty Start Date End Date Henrietta Null MD [facility] [address] [facility] [place] [address] PCP - General 12/20/10 05/08/20 documented as of this encounter
--- OUTSIDE RECORDS SUMMARY | 2024-04-23 12:18 | XMS_ITS | Encounter Summary ---
Author Organization [facility] [place] [place] [address] Care Team Providers Care Press Set Up Person Name Role Phone Henrietta Null MD Primary Care Provider [phone] Encounter Details Date Type Department Care Team (Late st Contact Info) Description 02/14/2012 11:15 AM EDT Follow-[place] [address] Yola Hoffmann, OT [facility] PHYSICAL MEDICINE & [place] [address] Trigger fingers, left thumb and ring, right [...] Progress Notes * Yola Louis, OT - 02/17/2012 7:59 AM EDT OCCUPATIONAL THERAPY PROGRESS NOTE CERTIFICATION PERIOD: 02/06/12 - 03/25/12 REFERRAL SOURCE: Mushtaq Mann PA-C ATTENDING: Dr. Gomez Laboy VISIT# 2 DIAGNOSIS: 1. Trigger fingers, left thumb and ring, right ring (727.03B) DATE OF INJURY: Onset of symptoms approximately 6 months ago DATE OF SURGERY: none NEXT MD FOLLOW UP: 03/25/12 TOTAL TREATMENT TIME: 39 Minutes TIMED CODE TREATMENT TIME: 39 minutes CURRENT HISTORY: Heike Ramires is a 67 y.o. 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 Patient reported [...] of finger into composite flexion and extension Fabricated gutter splint for left thumb to be used during the day as patient complained the neoprene thumb support splint was not supporting her well. (5 minutes) ASSESSMENT: Heike Ramires reported her ring fingers are not catching as often since using the gutter splints and icing. She is now getting motion in the IP joint of her left thumb, which she also feels is an improvement. clicking is noted with AROM in her left thumb, therefore, she will continue to benefit from occupational therapy to include ultrasound. Mcc Goals (to be met by discharge): Heike [...] 6 week(s) to progress toward short and snf goals. Soft tissue mobilization as therapeutically necessary [...] AM EDT Office Visit Cardiology at [address] [place] [address] Lorena Lawrence MD [facility] [place] [address] documented as of this encounter Visit Diagnoses Diagnosis Trigger fingers, left thumb and ring, right ring- Primary Trigger finger (acquired) documented in this encounter Care Teams Press Set Up Person Relationship Specialty Start Date End Date Henrietta Null MD [facility] [address] [facility] [place] [address] PCP - General 12/20/10 05/08/20 documented as of this encounter
--- OUTSIDE RECORDS SUMMARY | 2024-04-23 12:18 | XMS_ITS | Encounter Summary ---
Author Organization [facility] [place] [address] Care Team Providers Care Professional Athletes Coach Name Role Phone Henrietta Null MD Primary Care Provider [phone] Encounter Details Date Type Department Care Team (Late st Contact Info) Description 03/18/2012 9:30 AM EDT Follow-[place] [address] Yola Hoffmann, OT [facility] PHYSICAL MEDICINE & [place] [address] Trigger fingers, left thumb and ring, right [...] Progress Notes * Yola Louis, OT - 03/18/2012 12:49 PM EDT OCCUPATIONAL THERAPY PROGRESS NOTE CERTIFICATION PERIOD: 02/06/12 - 03/25/12 REFERRAL SOURCE: Mushtaq Mann PA-C ATTENDING: Dr. Gomez Laboy VISIT# 7 DIAGNOSIS: 1. Trigger fingers, left thumb and ring, right ring (727.03B) DATE OF INJURY: Onset of symptoms approximately 6 months ago DATE OF SURGERY: none NEXT MD FOLLOW UP: 03/25/12 TOTAL TREATMENT TIME: 35 Minutes TIMED CODE TREATMENT TIME: 35 minutes CURRENT HISTORY: Heike Ramires is a 67 y.o. 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 Patient reported [...] and extension Ice massage ASSESSMENT: Heike Ramires presented today with decreased AROM through her IP joint prior to ultrasound and soft tissue work. By the end she was able to flex her IP joint actively, however, this quickly locked on her. She indicated she did a lot of weeding and mowing of her 14 acres [place] land and decreased her icing, so I asked her to revisit the icing this week and avoid resistive pinching. Patient will recheck next week at which time she will also be seeing Mushtaq Mann PA-C. Intermediate Goals (to be met by discharge): Heike [...] 6 week(s) to progress toward short and care home goals. Soft tissue mobilization as therapeutically [...] 11:00 AM EDT Office Visit Cardiology at [address] [place] [phone] Lorena Lawrence MD [facility] [place] [address] documented as of this encounter Visit Diagnoses Diagnosis Trigger fingers, left thumb and ring, right ring- Primary Trigger finger (acquired) documented in this encounter Care Teams Professional Athletes Coach Relationship Specialty Start Date End Date Henrietta Null MD [facility] [address] [facility] [place] [address] PCP - General 12/20/10 05/08/20 documented as of this encounter
--- OUTSIDE RECORDS SUMMARY | 2024-04-23 12:18 | XMS_ITS | Encounter Summary ---
Author Organization [facility] [place] [address] Care Team Providers Care Synthetic Cloth Binding Cutter Name Role Phone Henrietta Null MD Primary Care Provider [phone] Encounter Details Date Type Department Care Team (Late st Contact Info) Description 02/19/2012 9:00 AM EDT Follow-[place] [address] Yola Hoffmann, OT [facility] PHYSICAL MEDICINE & [place] [address] Trigger fingers, left thumb and ring, right [...] Progress Notes * Yola Louis, OT - 02/19/2012 11:17 AM EDT OCCUPATIONAL THERAPY PROGRESS NOTE CERTIFICATION PERIOD: 02/06/12 - 03/25/12 REFERRAL SOURCE: Mushtaq Mann PA-C ATTENDING: Dr. Gomez Laboy VISIT# 3 DIAGNOSIS: 1. Trigger fingers, left thumb and ring, right ring (727.03B) DATE OF INJURY: Onset of symptoms approximately 6 months ago DATE OF SURGERY: none NEXT MD FOLLOW UP: 03/25/12 TOTAL TREATMENT TIME: 45 Minutes TIMED CODE TREATMENT TIME: 45 minutes CURRENT HISTORY: Heike Ramires is a 67 y.o. 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 Patient [...] overuse. Current Symptoms: Patient presents with decreasing pain and periodic locking in her left [...] Heike Ramires continues to report decreased triggering and her fingers. Palpable tenosynovitis is noted, however, she feels her constant aching in her thumb is decreasing. Quality Analyst Goals (to be met by discharge): Heike [...] 6 week(s) to progress toward short and detention goals. Soft tissue mobilization as therapeutically necessary [...] AM EDT Office Visit Cardiology at [address] [place] [phone] Lorena Lawrence MD [facility] [place] [address] documented as of this encounter Visit Diagnoses Diagnosis Trigger fingers, left thumb and ring, right ring- Primary Trigger finger (acquired) documented in this encounter Care Teams Synthetic Cloth Binding Cutter Relationship Specialty Start Date End Date Henrietta Null MD [facility] [address] [facility] [place] [address] PCP - General 12/20/10 05/08/20 documented as of this encounter
--- OUTSIDE RECORDS SUMMARY | 2024-04-23 12:18 | XMS_ITS | Encounter Summary ---
Author Organization [facility] [place] [address] Care Team Providers Care Grounds Keeper Name Role Phone Henrietta Null MD Primary Care Provider [phone] Reason for Visit * Reason Onset Date Comments Results 02/05/2012 Encounter Details Date Type Department Care Team (Late st Contact Info) Description 02/05/2012 Telephone [place] [address] Cecilia Joshi MD [facility] [place] [address] Results Social History Tobacco Use Types Packs/Day [...] encounter Miscellaneous Notes * Telephone Encounter - Cecilia Joshi MD - 02/05/2012 4:48 PM EDT Called patient to discuss results of recent biopsy from foot showing a severely atypical nevus. Discussed that although not a melanoma, this had concerning features under the microscope and thereforeexcision is recommended. Also went over that she will need a full skin check in the near future as well. Patient voiced understanding and agrees with plan. Cecilia Joshi MD PGY-2 documented in this encounter Plan of Treatment Upcoming Encounters Date Type Department Care Team (Late st Contact Info) Description 07/07/2024 11:00 AM EDT Office Visit Cardiology at [address] [facility] [place] [address] Lorena Lawrence MD [facility] [place] [address] documented as of this encounter Visit Diagnoses Not on filedocumented in this encounter Care Teams Grounds Keeper Relationship Specialty Start Date End Date Henrietta Null MD [facility] [address] [place] [address] PCP - General 12/20/10 05/08/20 documented as of this encounter
--- OUTSIDE RECORDS SUMMARY | 2024-04-23 12:19 | XMS_ITS | Encounter Summary ---
Author Organization [facility] [place] [address] Care Team Providers Care Asp Web Developer Name Role Phone Henrietta Null MD Primary Care Provider [phone] Encounter Details Date Type Department Care Team (Late Contact Info) Description 12/20/2010 Orders [place] [address] Carmine Jay MD [facility] [place] [address] Social History Tobacco Use Types Packs/Day Years [...] AM EDT Office Visit Cardiology at [address] [place] [phone] Lorena Lawrence MD [facility] [place] [address] documented as of this encounter Procedures Procedure Name Priority Date/Time Associated Diagnosis Comments US TRANSVAGINAL NON OB Routine 12/20/2010 5:06 PM EDT documented in this encounter Results * US TRANSVAGINAL NON OB (12/20/2010 5:06 PM EDT) Anatomical Region Laterality Modality Ultrasound 12/20/2010 5:06 PM EDT Narrative 12/20/2010 5:17 PM EDT ?Gynecological Report ? (Signed Final 12/20/2010 05:16 pm) Patient Info ID: ? [id number] ? : ?? [birth year] (65 yrs) Name: ? HEIKE RAMIRES ?Visit Date: ??12/20/2010 05:04 pm Performed By Performed By: ?María Taylor RDMS Attending: ? Mark CONTRERAS, Mary Ellen Paula Referred By: ? MARIELOS CASPER MD Accession#: ?[id number] Procedures UTV - Ultrasound - Transvaginal - [id number] ? [id number] UPELIM - Ultrasound Pelvis Limited - [id number] ?[id number] Indications Pelvic Mass Worsening abdominal pain Evaluate for fibroid vs. mass Evaluate for torsion and hemorrhage ------- History ------- Age: ?? 65 ------ Uterus ------ Uterus: ? Visualized Position: ?? Anteverted Size (cm) ? L: 9.8 ?W: ??6.3 ?H: ??6.1 Vol (ml): ?197.2 Description: ?? Enlarged fibroid uterus ------ Myomas ------ Site ?L(cm) ? W(cm) ? D(cm) ? Location Body ?5 ? 4 ? 3.9 Blood Flow ?RI ?PI ? Comments Endometrium Endometrium: ?Difficult to differentiate due to large fibroid ------ Cervix ------ Normal appearance [place] A small amount of fluid was noted. Right Ovary Status: ?? Visualized Size (cm) ? L: 1.8 ?W: ??1.6 ?H: ??0.9 Vol (ml): ?1.4 Morphology: ?Normal appearance Left Ovary Status: ?? Visualized Size (cm) ? L: 2.2 ?W: ??1.5 ?H: ??1.7 Vol (ml): ?2.9 Morphology: ?Normal appearance Impression Ultrasound - Transvaginal - Summary The uterus and adnexa are seen. ??Approximately 5cm dense shadowing anterior fundal fibroid. ??Asvascular. We note that the office note from Dr. Sharif states that the outside scans showed a pedunculated mass, but this appears continguous with the uterus and cervix. No pedunculated mass seen. ??We would be happy to compare with outside studies if available. OVaries normal for age. The endometrial echo complex not clearly seen This study was performed transvaginally. I ??viewed the images and agree with the above interpretation. Thank you for allowing us to participate in the care of HEIKE RAMIRES. Please do not hesitate to call if you have any questions. ?Mary Ellen Flores MD Electronically Signed Final Report ?? 12/20/2010 05:16 pm Procedure Note Mary Ellen Flores MD - 12/20/2010 Gynecological Report (Signed Final 12/20/2010 05:16 pm) Patient Info ID: [id number] : 45 (65 yrs) Name: HEIKE RAMIRES Visit Date: 12/20/2010 05:04 pm Performed By Performed By: María Taylor RDMS Attending: Mary Ellen Flores MD Referred By: MARIELOS CASPER MD Procedures UTV - Ultrasound - Transvaginal - [id number] UPELI - Ultrasound Pelvis Limited - [id number] Indications Pelvic Mass Worsening abdominal pain Evaluate for fibroid vs. mass Evaluate for torsion and hemorrhage ------- History ------- Age: 65 ------ Uterus ------ Uterus: Visualized Position: Anteverted Size (cm) L: 9.8 W: 6.3 H: 6.1 Vol (ml): 197.2 Description: Enlarged fibroid uterus ------ Myomas ------ Site L(cm) W(cm) D(cm) Location Body 5 4 3.9 Blood Flow RI PI Comments Endometrium Endometrium: Difficult to differentiate due to large fibroid ------ Cervix ------ Normal appearance [place] A small amount of fluid was noted. Right Ovary Status: Visualized Size (cm) L: 1.8 W: 1.6 H: 0.9 Vol (ml): 1.4 Morphology: Normal appearance Left Ovary Status: Visualized Size (cm) L: 2.2 W: 1.5 H: 1.7 Vol (ml): 2.9 Morphology: Normal appearance Impression Ultrasound - Transvaginal - Summary The uterus and adnexa are seen. Approximately 5cm dense shadowing anterior fundal fibroid. Asvascular. We note that the office note from Dr. Sharif states that the outside scans showed a pedunculated mass, but this appears continguous with the uterus and cervix. No pedunculated mass seen. We would be happy to compare with outside studies if available. OVaries normal for age. The endometrial echo complex not clearly seen This study was performed transvaginally. I viewed the images and agree with the above interpretation. Thank you for allowing us to participate in the care of HEIKE Sneed RAMIRES. Please do not hesitate to call if you have any questions. Mary Ellen Flores MD Electronically Signed Final Report 12/20/2010 05:16 pm Carmine Jay MD IMG US PELVIC ORDERA BLES documented in this encounter Visit Diagnoses Not on filedocumented in this encounter Care Teams Asp Web Developer Relationship Specialty Start Date End Date Henrietta Null MD [facility] [address] [place] [address] PCP - General 12/20/10 05/08/20 documented as of this encounter
--- OUTSIDE RECORDS SUMMARY | 2024-04-23 12:19 | XMS_ITS | Encounter Summary ---
Author Organization [facility] [place] [address] Care Team Providers Care Back Winder Name Role Phone Henrietta Null MD Primary Care Provider [phone] Encounter Details Date Type Department Care Team (Late Contact Info) Description 12/20/2010 Orders Only Internal Medicine at [facility] [address] Kishore Bingham MD [facility] [place] [address] Social History Tobacco Use Types Packs/Day Years [...] AM EDT Office Visit Cardiology at [address] [place] [phone] Lorena Lawrence MD [facility] [place] [address] documented as of this encounter Procedures Procedure Name Priority Date/Time Associated Diagnosis Comments XR ABDOMEN ACUTE SERIES W PA CHEST Routine 12/20/2010 4:33 PM EDT documented in this encounter Results * XR ABDOMEN ACUTE SERIES WITH PA CHEST (12/20/2010 4:33 PM EDT) Anatomical Region Laterality Modality Abdomen, Chest N/A Radiographic Juliet ging 12/20/2010 4:33 PM EDT Impressions 12/21/2010 8:42 AM EDT IMPRESSION: ?? 1. ??No acute cardiopulmonary pathology. 2. ??No obstruction or ileus. Fecal load along the colon would be consistent with constipation. Narrative 12/21/2010 8:42 AM EDT ACUTE ABDOMINAL SERIES WITH PA CHEST: INDICATION: ??Pelvic mass. ??Now worsening pain and constipation. ??Nausea. ?? Evaluation for obstruction. TECHNIQUE: ??PA chest. ??One upright and two supine views of the abdomen. COMPARISON: ??Chest x-ray of December 14, 2010. FINDINGS: ?? CHEST: ??Mild blunting of the left lateral costophrenic angle is stable in comparison to the prior exam and due to trace effusion or pleural thickening. ?? Otherwise, the lungs are clear. ??No focal airspace consolidation. ??Normal size of the heart and mediastinum. ABDOMEN: ??No free intraabdominal air. ??Moderate amount of fecal load along the colon including the rectum. ??No abnormal small or large bowel dilatation. ??No air-fluid levels. Procedure Note Estefanía Arce MD - 12/21/2010 ACUTE ABDOMINAL SERIES WITH PA CHEST: INDICATION: Pelvic mass. Now worsening pain and constipation. Nausea. Evaluation for obstruction. TECHNIQUE: PA chest. One upright and two supine views of the abdomen. COMPARISON: Chest x-ray of December 14, 2010. FINDINGS: CHEST: Mild blunting of the left lateral costophrenic angle is stable in comparison to the prior exam and due to trace effusion or pleuralthickening. Otherwise, the lungs are clear. No focal airspace consolidation. Normalsize of the heart and mediastinum. ABDOMEN: No free intraabdominal air. Moderate amount of fecal load alongthe colon including the rectum. No abnormal small or large bowel dilatation.No air-fluid levels. IMPRESSION IMPRESSION: 1. No acute cardiopulmonary pathology. 2. No obstruction or ileus. Fecal load along the colon would beconsistent with constipation. Kishore Bingham MD IMG DX ORDERABLES documented in this encounter Visit Diagnoses Not on filedocumented in this encounter Care Teams Back Winder Relationship Specialty Start Date End Date Henrietta Null MD [facility] [address] [place] [address] PCP - General 12/20/10 05/08/20 documented as of this encounter
--- OUTSIDE RECORDS SUMMARY | 2024-04-23 12:19 | XMS_ITS | Encounter Summary ---
Author Organization [facility] [place] [address] Care Team Providers Care Door Repairer Bus Name Role Phone Henrietta Null MD Primary Care Provider [phone] Encounter Details Date Type Department Care Team (Late Contact Info) Description 12/28/2010 10:20 AM EDT Office Visit Internal Medicine at [address] [address] Henrietta Null MD [facility] [place] [address] Discharge Disposition: Home Social History Tobacco Use [...] AM EDT Office Visit Cardiology at [address] [phone] Lorena Lawrence MD [facility] [place] [address] documented as of this encounter Procedures Procedure Name Priority Date/Time Associated Diagnosis Comments URINE CULTURE Routine 12/28/2010 10:45 AM EDT documented in this encounter Results * URINE CULTURE (12/28/2010 10:45 AM EDT) Urine Culture ? Patient Name: HEIKE RAMIRES ?Ordered By: HENRIETTA NULL ? MR#: [id number] ?LOC: ??[place] ? /Sex: ??1945 (65 years), ? Female ? PROCEDURE: Urine Culture ?SOURCE: T CC ? COLLECTED: 12/28/2010 10:45 ? STARTED: 12/28/2010 13:12 ? FINAL REPORT ? Final Report ? Verified:2010 07:21 ? 1,000-9,000 cfu/ml Gram Positive organisms , probable contaminant ? CERNER MILLENNIUM Urine specimen obtained by clean catch procedure (specimen) 12/28/2010 10:45 AM EDT 12/28/2010 12:39 PM EDT Henrietta Null MD MICROBIOLOGY - GENER AL ORDERABLES [facility] documented in this encounter Visit Diagnoses Not on filedocumented in this encounter Care Teams Door Repairer Bus Relationship Specialty Start Date End Date Henrietta Null MD [facility] GENER[facility] [place] [address] PCP - General 12/20/10 05/08/20 documented as of this encounter
--- OUTSIDE RECORDS SUMMARY | 2024-04-23 12:19 | XMS_ITS | Encounter Summary ---
Author Organization [facility] [place] [address] Care Team Providers Care Co Supervisor Grounds And Landscape Name Role Phone Scarlett Cherry MD Primary Care Provider [phone] Encounter Details Date Type Department Care Team (Late Contact Info) Description 12/14/2010 Orders Only [place] [address] [facility] [place] [address] Social History Tobacco Use Types Packs/Day Years [...] AM EDT Office Visit Cardiology at [address] [place] [address] Lorena Lawrence MD [facility] [place] [address] documented as of this encounter Procedures Procedure Name Priority Date/Time Associated Diagnosis Comments ELECTROLYTES PANEL Routine 12/14/2010 11 :29 AM EDT documented in this encounter Results * ELECTROLYTE PANEL (12/14/2010 11:29 AM EDT) Sodium 138 135 - 145 mmol/L CERNER MILLENNIUM Potassium 3.8 3.5 - 5.0 mmol/L CERNER MILLENNIUM Comment: Please note: ??Patients with WBC >100,000 may have falsely elevated Potassium levels. ??For accurate Potassium quantification in these patients send serum separator tube (gold top) for subsequent determinations. ??Contact the Clinical Chemistry Laboratory if there are any questions. Chloride 103 98 - 107 mmol/L CERNER MILLENNIUM CO2 29 22 - 31 mmol/L CERNER MILLENNIUM Anion Gap 6 5 - 15 mmol/L CERNER MILLENNIUM Blood specimen (specimen) 12/14/2010 11:29 AM EDT 12/14/2010 11:48 AM EDT Sanchez Sharif MD CHEMISTRY ORDERABLES [facility] documented in this encounter Visit Diagnoses Not on filedocumented in this encounter Care Teams Co Supervisor Grounds And Landscape Relationship Specialty Start Date End Date Scarlett Cherry MD [address] [place] [address] PCP - General 08/21/10 12/19/10 documented as of this encounter
--- OUTSIDE RECORDS SUMMARY | 2024-04-23 12:19 | XMS_ITS | Encounter Summary ---
Author Organization [facility] [place] [address] Care Team Providers Care Head Neck Surgeon Name Role Phone Henrietta Null MD Primary Care Provider [phone] Encounter Details Date Type Department Care Team (Latest Contact Info) Description 01/04/2011 9:44 AM EDT - 01/04/2011 11:59 PM EDT Hospital Encounter Internal Medicine at [address] [id number] Henrietta Null MD [facility] [place] [address] Discharge Disposition: Home Social History Tobacco Use [...] cyanocobalamin (VITAMIN B-12) 1,000 mcg tablet 12/20/201006/01 HYDROmorphone (DILAUDID) 2 mg tablet 2 MG = 1 Tablet(s), PO, Q12H,PRN 12/20/2010 01/08/2011 senna-docusate (PERICOLACE) 8.6-50 mg per tablet 1 Tablet(s), PO, Twice daily,PRN 12/20/2010 11/28/2011 documented as of this encounter Plan of Treatment Upcoming Encounters Date Type Department Care Team (Late st Contact Info) Description 07/07/2024 11:00 AM EDT Office Visit Cardiology at [address] [address] Lorena Lawrence MD [facility] [place] [address] documented as of this encounter Visit Diagnoses Not on filedocumented in this encounter Care Teams Head Neck Surgeon Relationship Specialty Start Date End Date Henrietta Null MD [facility] [address] [place] [address] PCP - General 12/20/10 05/08/20 documented as of this encounter
--- OUTSIDE RECORDS SUMMARY | 2024-04-23 12:19 | XMS_ITS | Encounter Summary ---
Author Organization [facility] [place] [address] Care Team Providers Care Solar Sales Energy Advisor Name Role Phone Scarlett Cherry MD Primary Care Provider [phone] Encounter Details Date Type Department Care Team (Late Contact Info) Description 12/14/2010 Orders Only Gynecology Oncology at [facility] [place] [address] Sanchez Sharif MD [facility] [place] [address] Social History Tobacco Use Types Packs/Day Years [...] AM EDT Office Visit Cardiology at [address] [place] [address] Lorena Lawrence MD [facility] [place] [address] documented as of this encounter Procedures Procedure Name Priority Date/Time Associated Diagnosis Comments XR CHEST PA AND LATERAL Routine 12/14/2010 11:57 AM EDT documented in this encounter Results * XR CHEST ROUTINE PA & LATERAL (12/14/2010 11:57 AM EDT) Anatomical Region Laterality Modality Chest N/A Radiographic Juliet ging 12/14/2010 11:5 7 AM EDT Impressions 12/14/2010 3:54 PM EDT IMPRESSION: No significant abnormality. Narrative 12/14/2010 3:54 PM EDT PA AND LATERAL CHEST, DECEMBER 14, 2010: CLINICAL INDICATION: ?? Preop. COMPARISON: ??July 24, 2009. FINDINGS: ??There is no interval change. ??The lungs are clear. ??The heart size is normal. ??No pleural effusion or other significant abnormality is seen. Procedure Note Bird Pinto MD - 12/14/2010 PA AND LATERAL CHEST, DECEMBER 14, 2010: CLINICAL INDICATION: Preop. COMPARISON: July 24, 2009. FINDINGS: There is no interval change. The lungs are clear. The heartsize is normal. No pleural effusion or other significant abnormality is seen. IMPRESSION IMPRESSION: No significant abnormality. Sanchez Sharif MD IMG DX ORDERABLES documented in this encounter Visit Diagnoses Not on filedocumented in this encounter Care Teams Solar Sales Energy Advisor Relationship Specialty Start Date End Date Scarlett Cherry MD [address] [place] [address] PCP - General 08/21/10 12/19/10 documented as of this encounter
--- OUTSIDE RECORDS SUMMARY | 2024-04-23 12:19 | XMS_ITS | Encounter Summary ---
Author Organization [facility] [place] [address] Care Team Providers Care Human Resources Talent Manager Name Role Phone Henrietta Null MD Primary Care Provider [phone] Reason for Visit * Reason Onset Date Comments Medication Refill 01/03/2011 Encounter Details Date Type Department Care Team (Late st Contact Info) Description 01/03/2011 Refill Internal Medicine at [address] [address] Henrietta Null MD [facility] [place] [address] Osteoporosis (Primary Dx) Social History Tobacco Use [...] 11:00 AM EDT Office Visit Cardiology at [address] [address] Lorena Lawrence MD [facility] [place] [address] documented as of this encounter Visit Diagnoses Diagnosis Osteoporosis- Primary Osteoporosis, unspecified documented in this encounter Care Teams Human Resources Talent Manager Relationship Specialty Start Date End Date Henrietta Null MD [facility] GENER[facility] [place] [address] PCP - General 12/20/10 05/08/20 documented as of this encounter
--- OUTSIDE RECORDS SUMMARY | 2024-04-23 12:19 | XMS_ITS | Encounter Summary ---
Author Organization [facility] [place] [address] Care Team Providers Care Network Services Project Manager Name Role Phone Scarlett Cherry MD Primary Care Provider [phone] Encounter Details Date Type Department Care Team (Late st Contact Info) Description 12/14/2010 11:20 AM EDT Clinical Support Same Day at [facility] [place] [address] Social History Tobacco Use Types Packs/Day Years Used Date Smoking Tobacco: Never Assessed Sex and Gender Information Value Date Recorded Sex Assigned at Not on file Gender Identity Not on file Sexual Orientation Not on file documented as of this encounter Miscellaneous Notes * Miscellaneous - Vinod Shafer - 01/11/2011 2:53 PM EDT documented in this encounter Plan of Treatment Upcoming Encounters Date Type Department Care Team (Late st Contact Info) Description 07/07/2024 11:00 AM EDT Office Visit Cardiology at [address] [phone] Lorena Lawrence MD [facility] [place] [address] documented as of this encounter Visit Diagnoses Not on filedocumented in this encounter Care Teams Network Services Project Manager Relationship Specialty Start Date End Date Scarlett Cherry MD [address] [place] [address] PCP - General 08/21/10 12/19/10 documented as of this encounter
--- OUTSIDE RECORDS SUMMARY | 2024-04-23 12:19 | XMS_ITS | Encounter Summary ---
Author Organization [facility] [place] [address] Care Team Providers Care Acquisition Cost Estimator Name Role Phone Scarlett Cherry MD Primary Care Provider [phone] Encounter Details Date Type Department Care Team (Late Contact Info) Description 12/14/2010 Orders Only Gynecology Oncology at [facility] [place] [address] Sanchez Sharif MD [facility] [place] [address] Social History Tobacco Use Types Packs/Day Years Used Date Smoking Tobacco: Never Assessed Sex and Gender Information Value Date Recorded Sex Assigned at Not on file Gender Identity Not on file Sexual Orientation Not on file documented as of this encounter Plan of Treatment Upcoming Encounters Date Type Department Care Team (Late Contact Info) Description 07/07/2024 11:00 AM EDT Office Visit Cardiology at [address] [place] [address] Lorena Lawrence MD [facility] [place] [address] documented as of this encounter Procedures Procedure Name Priority Date/Time Associated Diagnosis Comments DIFFERENTIAL, AUTOMATED Routine 12/14/2010 11:29 AM EDT documented in this encounter Results * REFLEX LAB-A-DIFF (12/14/2010 11:29 AM EDT) Neutrophils % 57.3 34.0 - 71.0 % CERNER MILLENNIUM Neutr Abs (ANC) 2.47 1.50 - 6.30 x10(3)/mcL CERNER MILLENNIUM Lymphocytes % 31.7 19.0 - 53.0 % CERNER MILLENNIUM Lymphocytes Abs 1.4 1.0 - 3.6 x10(3)/mcL CERNER MILLENNIUM Monocytes % 6.9 4.0 - 13.0 % CERNER MILLENNIUM Monocyte Abs 0.3 0.2 - 1.0 x10(3)/mcL CERNER MILLENNIUM Eosinophils % 3.7 0.0 - 7.0 % CERNER MILLENNIUM Eosinophils Abs 0.2 0.0 - 0.5 x10(3)/mcL CERNER MILLENNIUM Basophils % 0.2 0.0 - 2.0 % CERNER MILLENNIUM Basophils [...] 0.05 x10(3)/mcL CERNER MILLENNIUM Blood specimen (specimen) 12/14/2010 11:29 AM EDT 12/14/2010 11:48 AM EDT Sanchez Sharif MD HEMATOLOGY ORDERABLE S CERNER MILLENNIUM documented in this encounter Visit Diagnoses Not on filedocumented in this encounter Care Teams Acquisition Cost Estimator Relationship Specialty Start Date End Date Scarlett Cherry MD [address] [facility] [place] [address] PCP - General 08/21/10 12/19/10 documented as of this encounter
--- OUTSIDE RECORDS SUMMARY | 2024-04-23 12:19 | XMS_ITS | Encounter Summary ---
Author Organization [facility] [address] [place] [address] Care Team Providers Care Technical Support Engineer Name Role Phone Unavailable Primary Care Provider Unavailabl e Encounter Details Date Type Department Care Team (Late st Contact Info) Description 08/13/2010 3:00 PM EST Follow-Up Neurosurgery at [facility] [place] [address] Dyllan Wesley MD Social History Tobacco Use Types Packs/Day Years [...] AM EDT Office Visit Cardiology at [address] [place] [phone] Lorena Lawrence MD [facility] [place] [address] documented as of this encounter Visit Diagnoses Not on filedocumented in this encounter
--- OUTSIDE RECORDS SUMMARY | 2024-04-23 12:19 | XMS_ITS | Encounter Summary ---
Author Organization [facility] [place] [address] Care Team Providers Care Color Sprayer Name Role Phone Scarlett Cherry MD Primary Care Provider [phone] Encounter Details Date Type Department Care Team (Late Contact Info) Description 12/14/2010 Orders Only Gynecology Oncology at [facility] [place] [address] Sanchez Sharif MD [facility] [place] [address] Social History Tobacco Use Types Packs/Day Years [...] AM EDT Office Visit Cardiology at [address] [place] [address] Lorena Lawrence MD [place] [address] documented as of this encounter Procedures Procedure Name Priority Date/Time Associated Diagnosis Comments ABO/RH TYPING Routine 12/14/2010 11:29 AM EDT documented in this encounter Results * REFLEX LAB-ABO/RH (12/14/2010 11:29 AM EDT) ABORH Type B Pos EFFIE SEBASTIAN Blood specimen (specimen) 12/14/2010 11:29 AM EDT 12/14/2010 11:48 AM EDT Sanchez Sharif MD BLOOD BANK LAB ORDER AMEE EFFIE SEBASTIAN documented in this encounter Visit Diagnoses Not on filedocumented in this encounter Care Teams Color Sprayer Relationship Specialty Start Date End Date Scarlett Cherry MD [address] [place] [address] PCP - General 08/21/10 12/19/10 documented as of this encounter
--- OUTSIDE RECORDS SUMMARY | 2024-04-23 12:19 | XMS_ITS | Encounter Summary ---
Author Organization [facility] [place] [address] Care Team Providers Care Outside Physical Damage Appraiser Name Role Phone Henrietta Null MD Primary Care Provider [phone] Encounter Details Date Type Department Care Team (Late Contact Info) Description 01/04/2011 Orders Only Internal Medicine at [address] [address] Henrietta Null MD [facility] [place] [address] Social History Tobacco Use Types Packs/Day Years [...] AM EDT Office Visit Cardiology at [address] [phone] Lorena Lawrence MD [facility] [place] [address] documented as of this encounter Procedures Procedure Name Priority Date/Time Associated Diagnosis Comments MAMMO SCREENING CAD BILATERAL Routine 01/04/2011 11:24 AM EDT documented in this encounter Results * MAMMO DIGITAL BILATERAL SCREENING WITH CAD (01/04/2011 11:24 AM EDT) Anatomical Region Laterality Modality Breast Bilateral Mammography 01/04/2011 11:2 4 AM EDT Narrative 01/07/2011 1:42 PM EDT ? BILATERAL MAMMOGRAPHY ?? REASON FOR EXAM: Screening ?? TECHNIQUE: Cranio-caudal (CC) and mediolateral oblique (MLO) views of both breasts obtained with direct digital capture. The exam was evaluated by CAD Version 8.3.17. ?? FINDINGS: This is a negative mammogram [...] by [facility]. Procedure Note Mary Ellen Flores MD - 01/07/2011 BILATERAL MAMMOGRAPHY REASON FOR EXAM: Screening TECHNIQUE: Cranio-caudal (CC) and mediolateral oblique (MLO) views of both breasts obtained with direct digital capture. The exam was evaluated byCAD Version 8.3.17. FINDINGS: This is a negative mammogram (ACR [...] on filedocumented in this encounter Care Teams Outside Physical Damage Appraiser Relationship Specialty Start Date End Date Henrietta Null MD [facility] [place] [address] PCP - General 12/20/10 05/08/20 documented as of this encounter
--- OUTSIDE RECORDS SUMMARY | 2024-04-23 12:19 | XMS_ITS | Encounter Summary ---
Author Organization Formerly [facility] [place] [address] Care Team Providers Care Corporate Relations Manager Name Role Phone Scarlett Cherry MD Primary Care Provider [phone] Encounter Details Date Type Department Care Team (Late Contact Info) Description 12/14/2010 Orders Only Gynecology Oncology at [facility] [place] [address] Sanchez Sharfi MD [facility] [address] Social History Tobacco Use Types Packs/Day Years [...] AM EDT Office Visit Cardiology at [address] [place] [address] Lorena Lawrence MD [facility] [place] [address] documented as of this encounter Procedures Procedure Name Priority Date/Time Associated Diagnosis Comments CANCER ANTIGEN 125 Routine 12/14/2010 11 :29 AM EDT documented in this encounter Results * (ABNORMAL) CANCER ANTIGEN 125 (12/14/2010 11:29 AM EDT) CA 125 24(H) <=20 u/ml EFFIE MICHAELMARTA Comment: Beginning 08/29/08 the CA125 assay will be performed by a new method. ??This new method will yield results that are, on average, 20% lower than the previous method. ??If you have been monitoring patients, please interpret serial CA125 results with caution with regards to the reports dated after 08/28/08, taking into account this downshift. ??No adjustment is needed for new patients being monitored after 08/28/08. ??The new reference range for the assay will be <21 U/mL versus <35 U/mL with the previous method. ??If you have any questions, please contact the lab at [phone]. Blood specimen (specimen) 12/14/2010 11:29 AM EDT 12/14/2010 2:15 PM EDT Sanchez Sharif MD CHEMISTRY ORDERABLES [facility] documented in this encounter Visit Diagnoses Not on filedocumented in this encounter Care Teams Corporate Relations Manager Relationship Specialty Start Date End Date Scarlett Cherry MD [address] [place] [address] PCP - General 08/21/10 12/19/10 documented as of this encounter
--- OUTSIDE RECORDS SUMMARY | 2024-04-23 12:19 | XMS_ITS | Encounter Summary ---
Author Organization [facility] [place] [address] Care Team Providers Care Precision Aircraft Systems Assembler Name Role Phone Henrietta Null MD Primary Care Provider [phone] Encounter Details Date Type Department Care Team (Late Contact Info) Description 01/04/2011 Orders Only Internal Medicine at [address] [address] Henrietta Null MD [facility] [place] [address] Social History Tobacco Use Types Packs/Day Years [...] AM EDT Office Visit Cardiology at [address] [place] [phone] Lorena Lawrence MD [facility] [place] [address] documented as of this encounter Procedures Procedure Name Priority Date/Time Associated Diagnosis Comments DXA CENTRAL SPINE, HIP, AND/OR WHOLE BODY (GENERIC) Routine 01/04/2011 11:02 AM EDT documented in this encounter Results * DEXA CENTRAL-SPINE, HIP, AND/OR WHOLE BODY (01/04/2011 11:02 AM EDT) Anatomical Region Laterality Modality C-spine, Hip N/A Radiographic Juliet ging 01/04/2011 11:0 2 AM EDT Impressions 01/05/2011 11:51 PM EDT IMPRESSION: Her lowest T-score of -2.8 is from her lumbar spine. ??This fulfills the WHO classification for osteoporosis. ??I am unable to provide comparison because her previous examination is not available. ??We will add an addendum once we have access to her old examination. ?? ESTIMATING FRACTURE RISK: The relationship between bone mineral density (BMD) [...] the dose-response associated with most risk factors. ??For example, the significant increase in risk associated [...] BMD measurements and plots are available in CIS under Radiology Images. Paper copies will be sent to providers without CIS access. If you have received this report without the data sheet and do not have access to CIS, please contact Radiology Accounting Manager Cpa at [phone] Friday thru Friday 8am-4pm. 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 ??Check response. ?? COMPARISON STUDY: ??Not available ?? FINDINGS: ?? Both lumbar spine and left hip measurements are acquired. ?? 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 Check response. COMPARISON STUDY: Not available FINDINGS: Both lumbar spine and left hip measurements are acquired. IMPRESSION IMPRESSION: Her lowest T-score of -2.8 is from her lumbar spine. This fulfills theWHO classification for osteoporosis. I am unable to provide comparisonbecause her previous examination is not available. We will add an addendum once wehave access to her old examination. ESTIMATING FRACTURE RISK: The relationship between bone mineral density (BMD) [...] BMD measurements and plots are available in CIS under Radiology Images. Paper copies will be sent to providers without CIS access. If you have received this report without the data sheet and do not have access to CIS, please contact Radiology Accounting Manager Cpa at [phone] Friday thru Friday 8am-4pm. Henrietta Null MD IMG DEXA ORDERABLES documented in this encounter Visit Diagnoses Not on filedocumented in this encounter Care Teams Precision Aircraft Systems Assembler Relationship Specialty Start Date End Date Henrietta Null MD [facility] [address] [place] [address] PCP - General 12/20/10 05/08/20 documented as of this encounter
--- OUTSIDE RECORDS SUMMARY | 2024-04-23 12:19 | XMS_ITS | Encounter Summary ---
Author Organization [facility] [place] [address] Care Team Providers Care Photoengraving Retoucher Name Role Phone Scarlett Cherry MD Primary Care Provider [phone] Encounter Details Date Type Department Care Team (Late Contact Info) Description 12/14/2010 Orders Only Gynecology Oncology at [facility] [place] [address] Sanchez Sharif MD [facility] [place] [address] Social History Tobacco Use Types Packs/Day Years [...] AM EDT Office Visit Cardiology at [address] [place] [address] Lorena Lawrence MD [facility] [address] documented as of this encounter Procedures Procedure Name Priority Date/Time Associated Diagnosis Comments ANTIBODY SCREEN Routine 12/14/2010 11:29 AM EDT documented in this encounter Results * REFLEX LAB-ANTIBODY SCREEN (12/14/2010 11:29 AM EDT) Ab Screen Interp Negative EFFIE SEBASTIAN Expires at 2359 on: [id number] EFFIE SEBASTIAN Blood specimen (specimen) 12/14/2010 11:29 AM EDT 12/14/2010 11:48 AM EDT Sanchez Sharif MD BLOOD BANK LAB ORDER AMEE EFFIE SEBASTIAN documented in this encounter Visit Diagnoses Not on filedocumented in this encounter Care Teams Photoengraving Retoucher Relationship Specialty Start Date End Date Scarlett Cherry MD [address] [place] [address] PCP - General 08/21/10 12/19/10 documented as of this encounter
--- OUTSIDE RECORDS SUMMARY | 2024-04-23 12:19 | XMS_ITS | Encounter Summary ---
Author Organization [facility] [place] [address] Care Team Providers Care Corporate Logistics Manager Name Role Phone Scarlett Cherry MD Primary Care Provider [phone] Encounter Details Date Type Department Care Team (Late Contact Info) Description 12/11/2010 11:20 PM EDT Follow-Up Internal Medicine at [address] [address] Henrietta Null MD [facility] [place] [address] Discharge Disposition: Home Social History Tobacco Use [...] AM EDT Office Visit Cardiology at [address] [phone] Lorena Lawrence MD [facility] [place] [address] documented as of this encounter Visit Diagnoses Not on filedocumented in this encounter Care Teams Corporate Logistics Manager Relationship Specialty Start Date End Date Scarlett Cherry MD [address] [place] [address] PCP - General 08/21/10 12/19/10 documented as of this encounter
--- OUTSIDE RECORDS SUMMARY | 2024-04-23 12:19 | XMS_ITS | Encounter Summary ---
Author Organization [facility] [place] [address] Care Team Providers Care E Commerce Specialist Name Role Phone Unavailable Primary Care Provider Unavailabl e Encounter Details Date Type Department Care Team (Late st Contact Info) Description 08/10/2010 7:00 AM EST Follow-[place] [address] Naveen Hathaway MD [facility] [place] [address] Social History Tobacco Use Types Packs/Day Years [...] AM EDT Office Visit Cardiology at [address] [place] [address] Lorena Lawrence MD [facility] [place] [address] documented as of this encounter Visit Diagnoses Not on filedocumented in this encounter
--- OUTSIDE RECORDS SUMMARY | 2024-04-23 12:19 | XMS_ITS | Encounter Summary ---
Author Organization [facility] [place] [address] Care Team Providers Care Global Sales Director Name Role Phone Unavailable Primary Care Provider Unavailabl e Encounter Details Date Type Department Care Team (Late st Contact Info) Description 08/13/2010 4:00 PM EST Office Visit Neurosurgery at [facility] [place] [address] Ramona Price, ANA [facility] [place] [address] Social History Tobacco Use Types Packs/Day Years [...] 11:00 AM EDT Office Visit Cardiology at [address] [place] [address] Lorena Lawrence MD [facility] [place] [address] documented as of this encounter Visit Diagnoses Not on filedocumented in this encounter
--- OUTSIDE RECORDS SUMMARY | 2024-04-23 12:19 | XMS_ITS | Encounter Summary ---
Author Organization [facility] [place] [address] Care Team Providers Care Tube Machine Operator Helper Name Role Phone Scarlett Cherry MD Primary Care Provider [phone] Encounter Details Date Type Department Care Team (Late Contact Info) Description 08/29/2010 10:00 AM EST Office Visit Internal Medicine at [address] [address] Henrietta Null MD [facility] GENERAL INTERNAL [facility] [place] [address] Discharge Disposition: Home Social History Tobacco Use [...] AM EDT Office Visit Cardiology at [address] [address] Lorena Lawrence MD [place] [address] documented as of this encounter Visit Diagnoses Not on filedocumented in this encounter Care Teams Tube Machine Operator Helper Relationship Specialty Start Date End Date Scarlett Cherry MD [address] [place] [address] PCP - General 08/21/10 12/19/10 documented as of this encounter
--- OUTSIDE RECORDS SUMMARY | 2024-04-23 12:19 | XMS_ITS | Encounter Summary ---
Author Organization Formerly [facility] [place] [address] Care Team Providers Care Learning And Development Administrator Name Role Phone Henrietta Null MD Primary Care Provider [phone] Encounter Details Date Type Department Care Team (Late st Contact Info) Description 01/07/2011 7:31 AM EDT Anesthesia Event [place] [address] Reinaldo Robbins MD [facility] [place] [address] Karma Lua MD [facility] [place] [address] Anesthesia Record Procedure Summary Procedure Name Responsible Anesthesiologist Anesthesia Start Time Anesthesia Stop Time @SALPINGO-OOPHORECTO MY, UNILATERAL OR TERESA (WRVU 12.16) (Bilateral: Abdomen) Reinaldo Robbins MD 01/07/11 0731 01/07/11 1002 Events Date Time Event Comment 01/07/2011 07 0731 Start 1002 Stop Meds * Agents No agents on file. * Blood No blood administrations on file. Lines, Drains, and Airways Type Details Placement Removal (RETIRED) Peripheral IV Line - Single Lumen 01/07/11; 0634; 01/08/11; 1042 01/07/11 0634 by Traci Cantor RN 01/08/11 1042 by Nicky Ybarra RN (RETIRED) Peripheral IV Line - Single Lumen 01/07/11; 0810; 01/08/11; 1042 01/07/11 0810 by Audra Chi RN 01/08/11 1042 by Nicky Ybarra RN Urethral Catheter 01/07/11; 0820; indwelling double lumen catheter; 100% silicone; 16; inserted (from sterile field by Sam hBagat MS.); 1; drainage bag to dependent drainage; 01/08/11; 1023 01/07/11 0820 by Audra Chi RN 01/08/11 1023 by Nicky Ybarra RN Incision 01/07/11; 0825; (abdomen); 01/08/11; 1042 01/07/11 0825 by Audra Chi RN 01/08/11 1042 by Nicky Ybarra RN documented in this encounter Social History Tobacco Use Types Packs/Day Years Used Date Smoking Tobacco: Never Assessed Sex and Gender Information Value Date Recorded Sex Assigned at Not on file Gender Identity Not on file Sexual Orientation Not on file documented as of this encounter OR Notes * Anesthesia Procedure Notes - Karma Lua MD - 01/07/2011 11:00 AM EDT Associated Order(s): ANESTHESIA BLOCK Procedure Block: Post-op Pain Control, other Start time: 01/07/2011 9:31 AM End time: 01/07/2011 9:55 AM This patient was greeted in the block room and the risks and benefits of the anesthetic block were reviewed. The risks of infection, bleeding, local anesthetic toxicity, and nerve injury were discussed. Specifically, the approximate risk of nerve injury (09/2999-09/4999) including neuropathy, loss of sensation and motor function, whether permanent or temporary, was discussed as well as the fact that post-surgical nerve injury can be unrelated to the actual injection and may be related to intra-operative issues such as positioning and tourniquet usage. The anesthetic consent was obtained. The timeout was performed prior to procedure start. Standard ASA monitors were applied. Indication/Prep Position: supine Prep: chlorhexidine Laterality: bilateral Ultrasound Guidance: live and in-planeInjection Injection technique:single-shot Injection Pressure Monitoring: <15 PSI Needle Length: 10 cm Gauge: 22 Needle Type: [id number] Medication injection made incrementally with aspirations. Nerve infiltration solution through a needle Ropivicaine 0.2% 50 mL Additional Notes This was a TAPS block - left side done by Rachel Lua and right side by Tierney Robbins. Performed by * Anesthesia Preprocedure Evaluation - Karma Lua MD - 01/07/2011 7:13 AM EDT Anesthesia Evaluation Patient summary reviewed No hx of anesthetic complications Airway Mallampati: II TM distance: >3 FB Neck ROM: full Dental Pulmonary - normal exam (-) COPD and asthma Cardiovascular - normal exam (-) hypertension, past KS and CAD Neuro/Psych (-) seizures, TIA and CVA Comments: Trigeminal neuralgia GI/Hepatic/Renal (-) GERD, hepatitis, liver disease and renal disease Endo/Other (+) arthritis, (-) Type I DM, Type II DM, hypothyroidism and hyperthyroidism Abdominal Other findings: Dentures taken out, tolowa dee-ni' teeth are intact. Anesthesia Plan ASA 2 General GETA with a TAPS block pre-emergence. Risks including bleeding, infection, perforation of bowel or entering the peritoneal cavity all discussed. We will use U/S. Patient agrees and wishes to proceed. Anesthetic plan and risks discussed with patient. Plan discussed with resident. documented in this encounter Plan of Treatment Upcoming Encounters Date Type Department Care Team (Late st Contact Info) Description 07/07/2024 11:00 AM EDT Office Visit Cardiology at [address] [place] [address] Lorena Lawrence MD [facility] [place] [address] documented as of this encounter Visit Diagnoses Not on filedocumented in this encounter Care Teams Learning And Development Administrator Relationship Specialty Start Date End Date Henrietta Null MD [facility] [address] [facility] [place] [address] PCP - General 12/20/10 05/08/20 documented as of this encounter
--- OUTSIDE RECORDS SUMMARY | 2024-04-23 12:19 | XMS_ITS | Encounter Summary ---
Author Organization [facility] [place] [address] Care Team Providers Care Wet Finisher Wool Name Role Phone Henrietta Null MD Primary Care Provider [phone] Encounter Details Date Type Department Care Team (Late st Contact Info) Description 01/07/2011 7:30 AM EDT - 01/07/2011 11:37 AM EDT [place] [phone] Sanchez Perez MD [facility] [place] [address] @SALPINGO-OOPHORECTOMY , UNILATERAL OR TERESA (WRVU 12.16) Social History Tobacco Use Types Packs/Day Years [...] Discharge Instructions * Patient Instructions* Jacque Macedo - 01/08/2011 10:07 AM EDT PATIENT DISCHARGE [...] Date 01/08/11 0700 - 01/09/11 0659 Shift [phone] 24 Hour Total I N T A [...] % SpO2: [92 %-100 %] Date 01/07/11 0700 - 01/08/11 0659 Shift [phone] [phone] 24 Hour Total I N T A [...] ambulate Disposition: Continue post operative care LAISHA Aman REMA 01/07/2011 * Karma Dill MD - 01/07/2011 [...] Notes * Miscellaneous - Provider, Latonya - 01/11/2011 7:31 AM EDT * Discharge Summary - Laisha Albrecht MD - 01/08/2011 10:00 AM EDT Inpatient SLOT SHIFT MANAGER - Discharge Summary Patient Name: Heike Ramires [...] a crescendo-type fashion. She presented to the [facility] Emergency Room. She was admitted [...] please call the Gynecologic Oncology Clinic at [phone]. After 5:00pm, or on weekends or holidays, please call the hospital programmer operator numerical control at [phone] and inform them you are a Tube Repairer Oncology patient. HENRIETTA NULL MD [phone] Discharge References/Attachments: Discharge References/Attachments None Signed: LAISHA [...] scheduled ibuprophenand ketoralac (last dose 0600 today). PERSONAL CONSULTANT has been D/Angel and breakthrough pain has [...] Value Range ??? Frozen Section Report Value: [facility] Provider: SANCHEZ PEREZ Pt. Name: HEIKE RAMIRES [facility] #: [id number] Pt. Col Date: 01/07/2011 /Sex: 1945,(65 years),Female [...] HEIKE RAMIRES Ordered By: HENRIETTA NULL MR#: [id number] LOC: LYME /Sex: 1945 (65 years), Female* [...] GOODWIN MD STAFF: ARON ODONNELL RN - Environmental Epidemiologist Lucia Bradley - Scrub Person ESTIMATED BLOOD [...] AM EDT Office Visit Cardiology at [address] [place] [address] Lorena Lawrence MD [facility] [place] [address] documented as of this encounter Procedures Procedure Name Priority Date/Time Associated Diagnosis Comments DIFFERENTIAL, AUTOMATED STAT 01/07/2011 1:11 PM EDT CBC (WITH DIFF) STAT 01/07/2011 1:11 PM EDT BASIC METABOLIC PANEL (NON-FASTING) STAT 01/07/2011 1:11 PM EDT EKG 12-LEAD Routine 01/07/2011 12:11 PM EDT NON-TERMINAL OPERATOR FINAL REPORT Routine 01/07/2011 8:48 AM EDT NON-TERMINAL OPERATOR FINAL REPORT Routine 01/07/2011 8:48 AM EDT [...] PM EDT Reinaldo Robbins MD CHEMISTRY ORDERABLES [facility] * (ABNORMAL) CBC (with Diff) (01/07/2011 1:11 [...] MILLENNIUM MPV 9.8 9.0 - 12.0 fL CERFLY RODRIGUEZENNIUM Blood specimen (specimen) 01/07/2011 1:11 PM EDT [...] (Bezet) 487 ms MUSE SYSTEM Calculated P [place] 59 degrees MUSE SYSTEM Calculated R [place] 10 degrees MUSE SYSTEM Calculated T [place] 36 degrees MUSE SYSTEM INTERPRETATION Normal sinus [...] 8:48 AM EDT) Surgical Pathology Report [id number] ? Location: SDA; SA04; BB The signing [...] frozen section remnant; (2) paratubal cyst; ?(3-11) employee representative sections of ovarian mass; (12) ?employee representative section of fallopian tube. ?? (R12) B - Labeled/Fixative: Left tube and ovary, fresh. Qty/Size/Weight: ?Single, 4.0 x 4.0 x 2.0 cm. Tissue Description: ?? Fragment of ovary and 5.0 cm of fallopian tube. ??The ?ovary measures 3.2 x 1.2 x 1.0 cm and is lobular with ? a firm, fibrotic end. ??In addition there is a ?1.2-um-pa-diamet er ovarian cyst. The fallopian tube ?measures 0.6 cm in diameter and is unremarkable on ?serial sectioning. ??The fimbrae are soft with no ?nodularity or masses. ??The ovary on cut section has a ? firm, fibrous nodular cut surface. Sections/Processin g: ??(1) fimbriated end of fallopian tube; (2) ?employee representative sections of fallopian tube; (3-5) ?employee representative sections of ovary. ??(R5) ??aje/DPN Microscopic Description Slides reviewed, microscopic description not recorded. Diagnosis A - Right fallopian tube and ovary (salpingo-oophorec pk): ?1. Ovarian fibroma. ?2. Fallopian tube, no histopathologic abnormalities. ?3. Paratubal cysts. B - Left fallopian tube and ovary (salpingo-oophorec pk): . Diagnosis ?1. Small ovarian fibroma. ?2. Fallopian tube, no histopathologic abnormalities. CR-0 01/09/11 JLG 01/09/11 Verified by: ? Maurice Infante MD. ?Pathologist ?(Electronic Signature) The attending pathologist whose signature appears on this report has reviewed all diagnostic slides and has edited the gross and/or microscopic portion of the report in rendering the final pathologic diagnosis. ? Pathology Frozen Section Report Frozen Section Report AFS1 - right tube and ovary: ?Spindle cell neoplasm, favor ovarian fibroma. 01/07/11 09:12 01/07/11 ??Verified by: ??Edison Whiteside MD, Pathologist The attending pathologist whose electronic signature appears on this report has reviewed all diagnostic slides in rendering the frozen section diagnosis. This intraoperative consultation should be interpreted as a preliminary diagnosis pending review of the entire specimen and special studies, if any. [facility] 01/07/2011 8:48 AM EDT Sanchez Perez MD PATHOLOGY/CYTOLOGY O RDERABLES [facility] * Non-Tube Repairer Final Report (01/07/2011 8:48 AM EDT) Non-Tube Repairer Final Report [id number] ? Location: SDA; SA04; BB The signing pathologist has (i) examined the relevant preparation(s) for the specimen(s) and (ii) rendered or confirmed the diagnosis(es). . ? Pathology Non-Tube Repairer Cytology Final Report Clinical Information Specimen Source [...] cells are present. (Cell block is non-contributory). [facility] 01/07/2011 8:48 AM EDT Sanchez Perez MD PATHOLOGY/CYTOLOGY [facility]DERABLES [facility] * SURGICAL PATHOLOGY REPORT (01/07/2011 8:48 AM EDT) Surgical Pathology Report ? [facility] ? Provider: ?? SANCHEZ PEREZ ?Pt. Name: ?? HEIKE RAMIRES ? Acc #: ?[id number] ?Pt. ? Col Date: ?? 01/07/2011 ? [...] section remnant; (2) paratubal cyst; ? (3-11) employee representative sections of ovarian mass; (12) ? employee representative section of fallopian tube. ?? (R12) ? [facility] ? Provider: ?? SANCHEZ PEREZ ?Pt. Name: ?? HIEKE RAMIRES ? Acc #: ?[id number] ?Pt. ? Col Date: ?? 01/07/2011 ? [...] end. ??In addition there is a ? 1.5-ec-mf-diameter ovarian cyst. The fallopian tube ? measures 0.6 cm in diameter and is unremarkable on ? serial sectioning. ??The fimbrae are soft with no ? nodularity or masses. ??The ovary on cut section has a ? firm, fibrous nodular cut surface. ? Sections/Processin g: ??(1) fimbriated end of fallopian tube; (2) ? employee representative sections of fallopian tube; (3-5) ? employee representative sections of ovary. ??(R5) ??aje/DPN ? ---Clinical Information--- ? Specimen Submitted: ? A - Right tube and ovary for frozen section ? B - Left tube and ovary ? Clinical History/Diagnosis: ? Pelvic mass EFFIE SEBASTIAN 01/07/2011 8:48 AM EDT Sanchez Perez MD PATHOLOGY/CYTOLOGY O RDERABLES [facility] * NON-TERMINAL OPERATOR FINAL REPORT (01/07/2011 8:48 AM EDT) Non-Tube Repairer Final Report ? [facility] ? Provider: ?? SANCHEZ PEREZ ?Pt. Name: ?? HEIKE RAMIRES ? Acc #: ?[id number] ?Pt. ? Col Date: ?? 01/07/2011 ? /Sex: ?1945,(65 years),Female ? Rec Date: ?? 01/07/2011 ? LOC: ?1WST ? CYTOPATHOLOGY: ??NGYN ? ---Adequacy--- ? Specimen submitted is satisfactory. ? ---Cytopathologic Diagnosis--- ? Negative for Malignancy ? 01/08/11 ?Screened by: ? SQA ? Rescreened by: ?? JOSEPHINE,POLO ? 01/08/11 ?Verified by: ? Raven CONTRERAS, Joe Estrada ?Cytopathologist ?(Electronic Signature) ? ---Comment--- ? Pelvic [...] 8:48 AM EDT) Frozen Section Report ? [facility] ? Provider: ?? SANCHEZ PEREZ ?Pt. Name: ?? HEIKE RAMIRES ? Acc #: ?[id number] ?Pt. ? Col Date: ?? 01/07/2011 ? [...] AM EDT Sanchez Perez MD PATHOLOGY/CYTOLOGY O RDERAGRACIELA EFFIE SEBASTIAN documented in this encounter Visit Diagnoses Not on filedocumented in this encounter Administered Medications Inactive Administered Medications - up to 3 most recent administrations Medication Order MAR Action Action Date Dose Rate Site ceFAZolin (ANCEF) 2g in dextrose 5% 100mL 2 g, Intravenous, ONCE, 1 dose, On Fri01/07/11 at 0730, Administer over 30 Minutes, Redose after 4 hours., Day of Surgery (Day of Procedure) Given 01/07/2011 7:50 AM EDT 2 g heparin (porcine) subcutaneous injection 5,000 Units 5,000 Units, Subcutaneous, ONCE, 1 dose, On Fri01/07/11 at 0730, Day of Surgery (Day of Procedure), Routine Given 01/07/2011 8:05 AM EDT 5,000 Units Left Arm documented in this encounter Active and Recently [...] Provider: Sarah Keen RN)1200 (Given - Provider: Sarha Keen RN)1439 (Given - Provider: Sarah Keen [...] doses, Starting on Fri01/07/11 at 0944, Until 4/12/11 at 1303, Nausea, Nausea/vomiting, May repeat in 30 minutes if no relief from previous dose. HOLD if patient is sedated. Maximum dose is 40 mg in 24 hours., Routine 1719 (Given - Provider: Nazanin Mosley RN) documented in this encounter Care Teams Wet Finisher Wool Relationship Specialty Start Date End Date Henrietta Null MD [facility] [address] [facility] [place] [address] PCP - General 12/20/10 05/08/20 documented as of this encounter
--- OUTSIDE RECORDS SUMMARY | 2024-04-23 12:19 | XMS_ITS | Encounter Summary ---
Author Organization [facility] [place] [address] Care Team Providers Care Forest Fire Fighter Name Role Phone Scarlett Cherry MD Primary Care Provider [phone] Encounter Details Date Type Department Care Team (Late Contact Info) Description 12/14/2010 Orders Only Gynecology Oncology at [facility] [place] [address] Sanchez Sharif MD [facility] [place] [address] Social History Tobacco Use Types Packs/Day Years [...] AM EDT Office Visit Cardiology at [address] [place] [address] Lorena Lawrence MD [facility] [place] [address] documented as of this encounter Procedures Procedure Name Priority Date/Time Associated Diagnosis Comments BUN Routine 12/14/2010 11:29 AM EDT documented in this encounter Results * BUN (12/14/2010 11:29 AM EDT) BUN 14 8 - 18 mg/dL EFFIE BLUEIUM Blood specimen (specimen) 12/14/2010 11:29 AM EDT 12/14/2010 11:48 AM EDT Sanchez Sharif MD CHEMISTRY ORDERABLES EFFIE SEBASTIAN documented in this encounter Visit Diagnoses Not on filedocumented in this encounter Care Teams Forest Fire Fighter Relationship Specialty Start Date End Date Scarlett Cherry MD [address] [place] [address] PCP - General 08/21/10 12/19/10 documented as of this encounter
--- OUTSIDE RECORDS SUMMARY | 2024-04-23 12:19 | XMS_ITS | Encounter Summary ---
Author Organization [facility] [place] [address] Care Team Providers Care Senior Executive Compensation Analyst Name Role Phone Henrietta Null MD Primary Care Provider [phone] Encounter Details Date Type Department Care Team (Late st Contact Info) Description 12/20/2010 1:52 PM EDT - 12/20/2010 6:28 PM EDT [place] [address] Rolf Wood MD [facility] DR [place] [address] Discharge Disposition: Home Social History Tobacco Use [...] 14 days. 60 tablet 0 01/08/2011 01/22/2011 carBAMazepine (TEGRETOL) 200 mg tablet 12/20/2010 06/17/2011 ibandronate (BONIVA) 150 mg tablet 12/20/2010 01/03/2011 cyanocobalamin (VITAMIN B-12) 1,000 mcg tablet 12/20/201006/01 HYDROmorphone (DILAUDID) 2 mg tablet 2 MG = 1 Tablet(s), PO, Q12H,PRN 12/20/2010 01/08/2011 senna-docusate (PERICOLACE) 8.6-50 mg per tablet 1 Tablet(s), PO, Twice daily,PRN 12/20/2010 11/28/2011 documented as of this encounter Plan of Treatment Upcoming Encounters Date Type Department Care Team (Late st Contact Info) Description 07/07/2024 11:00 AM EDT Office Visit Cardiology at [address] [place] [address] Lorena Lawrence MD [facility] [place] [address] documented as of this encounter Procedures Procedure Name Priority Date/Time Associated Diagnosis Comments URINALYSIS WITH REFLEX CULTURE STAT 12/20/2010 4:12 PM EDT DIFFERENTIAL, AUTOMATED STAT 12/20/2010 3:22 PM EDT CREATININE STAT 12/20/2010 3:22 PM EDT CBC (WITH DIFF) STAT 12/20/2010 3:22 PM EDT BUN STAT 12/20/2010 3:22 PM EDT ELECTROLYTES PANEL STAT 12/20/2010 3: 22 PM EDT documented in this encounter Results * URINALYSIS WITH MICROSCOPIC (12/20/2010 4:12 PM EDT) Glucose UA Negative Negative mg/dL CERNER MILLENNIUM Protein UA Negative mg/dL CERNER MILLENNIUM Bilirubin UA Negative Negative mg/dL CERNER MILLENNIUM Urobilinogen UA Normal mg/dL CERN ER MILLENNIUM pH UA 7.5 5.0 - 8.0 CERNER MILLENNIUM Blood UA Negative mg/dL CERNER MILLENNIUM Ketones UA Negative mg/dL CERNER MILLENNIUM Nitrite UA Negative CERNER MILLENNIUM Leukocytes UA Moderate mcL CERNER MILLENNIUM Appearance UA Clear Clear CERNER MILLENNIUM Spec [place] UA 1.007 1.002 - 1.030 CERNER MILLENNIUM Color UA Yellow Yellow CERNER MILLENNIUM RBC UA <1 0 - 4 /HPF CERNER MILLENNIUM WBC UA 2 0 - 5 /HPF CERNER MILLENNIUM Squam Epith UA 1 <=4 /HPF CERNE R MILLENNIUM Trans Epith UA <1 <=1 /HPF CERNE R MILLENNIUM Urine specimen (specimen) 12/20/2010 4:12 PM EDT 12/20/2010 4:43 PM EDT Rolf Wood MD URINE ORDERABLES EFFIE RODRIGUEZENNIUM * REFLEX LAB-A-DIFF (12/20/2010 3:22 PM EDT) Neutrophils % 58.3 34.0 - 71.0 % CERNER MILLENNIUM Neutr Abs (ANC) 2.22 1.50 - 6.30 x10(3)/mcL CERNER MILLENNIUM Lymphocytes % 28.6 19.0 - 53.0 % CERNER MILLENNIUM Lymphocytes Abs 1.1 1.0 - 3.6 x10(3)/mcL CERNER MILLENNIUM Monocytes % 9.2 4.0 - 13.0 % CERNER MILLENNIUM Monocyte Abs 0.4 0.2 - 1.0 x10(3)/mcL CERNER MILLENNIUM Eosinophils % 3.1 0.0 - 7.0 % CERNER MILLENNIUM Eosinophils Abs 0.1 0.0 - 0.5 x10(3)/mcL CERNER MILLENNIUM Basophils % 0.5 0.0 - 2.0 % CERNER MILLENNIUM Basophils Abs 0.0 0.0 - 0.2 x10(3)/mcL CERNER MILLENNIUM Immature Gran % 0.30 0.00 - 0.66 % CERNER MILLENNIUM Comment: Immature granulocytes(IG's)percentage and absolute count will include metamyelocytes, myelocytes, and promyelocytes. Blood smears from CBCs yielding IG's will be scanned manually for concordance. If this scan disagrees with the automated IG or if promyelocytes are noted, a manual differential will be performed. Anne Gran Abs 0.01 0.00 - 0.05 x10(3)/mcL CERNER MILLENNIUM Blood specimen (specimen) 12/20/2010 3:22 PM EDT 12/20/2010 3:38 PM EDT Rolf Wood MD HEMATOLOGY ORDERABLE S EFFIE RODRIGUEZENNIUM * (ABNORMAL) CBC (WITH DIFF) (12/20/2010 3:22 PM EDT) WBC 3.8(L) 4.0 - 10.0 x10(3)/mcL CERNER MILLENNIUM RBC 4.01 3.93 - 5.22 x10(6)/mcL CERNER MILLENNIUM Hemoglobin 11.8 11.2 - 15.7 gm/dL CERNER MILLENNIUM Hematocrit 35.8 34.0 - 45.0 % CERNER MILLENNIUM MCV 89.3 79.0 - 94.0 fL CERNER MILLENNIUM MCH 29.4 26.6 - 32.2 pg CERNER MILLENNIUM MCHC 33.0 32.0 - 36.5 gm/dL CERNER MILLENNIUM Platelets 182 145 - 370 x10(3)/mcL CERNER MILLENNIUM RDWSD 39.5 35.0 - 46.0 fL CERNER MILLENNIUM RDWCV 12.1 10.9 - 14.4 % CERNER MILLENNIUM MPV 10.2 9.0 - 12.0 fL CERNER MILLENNIUM Blood specimen (specimen) 12/20/2010 3:22 PM EDT 12/20/2010 3:38 PM EDT Rolf Wood MD HEMATOLOGY ORDERABLE S EFFIE BLUEIUM * (ABNORMAL) CREATININE, SERUM (12/20/2010 3:22 PM EDT) Creatinine 0.60(L) 0.70 - 1.20 mg/dL [facility] Estimated GFR >60 >=60 [facility] Comment: The National Kidney Disease Education Program [...] disease. References: http://nkdep.nih.gov/resources/NKDEP_Suggestn4Labs_0606_508.pdf http://www.kidney.org/professionals/kls/pdf/faq_gfr.pdf Blood specimen (specimen) 12/20/2010 3:22 PM EDT 12/20/2010 3:38 PM EDT Rolf Wood MD CHEMISTRY ORDERABLES [facility] * BUN (12/20/2010 3:22 PM EDT) BUN 11 8 - 18 mg/dL [facility] Blood specimen (specimen) 12/20/2010 3:22 PM EDT 12/20/2010 3:38 PM EDT Rolf Wood MD CHEMISTRY ORDERABLES Performing Organization Address City/[facility] Co de Phone Number EFFIE RODRIGUEZENNIUM * ELECTROLYTE PANEL (12/20/2010 3:22 PM EDT) Sodium 141 135 - 145 mmol/L CERNER MILLENNIUM Potassium [...] - 31 mmol/L CERNER MILLENNIUM Anion Gap 10 5 - 15 mmol/L CERNER MILLENNIUM Blood specimen (specimen) 12/20/2010 3:22 PM EDT 12/20/2010 3:38 PM EDT Rolf Wood MD CHEMISTRY ORDERABLES Performing Organization Address [facility] de Phone Number EFFIE SEBASTIAN documented in this encounter Visit Diagnoses Not on filedocumented in this encounter Care Teams Senior Executive Compensation Analyst Relationship Specialty Start Date End Date Henrietta Null MD [facility] [address] [place] [address] PCP - General 12/20/10 05/08/20 documented as of this encounter
--- OUTSIDE RECORDS SUMMARY | 2024-04-23 12:19 | XMS_ITS | Encounter Summary ---
Author Organization [facility] [place] [address] Care Team Providers Care Tennis Instructor Name Role Phone Scarlett Cherry MD Primary Care Provider [phone] Encounter Details Date Type Department Care Team (Latest Contact Info) Description 12/14/2010 9:34 AM EDT - 12/14/2010 11:59 PM EDT Hospital Encounter Gynecology Oncology at [facility] [place] [address] Sanchez Sharif MD [facility] [place] [address] Discharge Disposition: Home Social History Tobacco Use [...] AM EDT Office Visit Cardiology at [address] [phone] Lorena Lawrence MD [facility] [place] [address] documented as of this encounter Procedures Procedure Name Priority Date/Time Associated Diagnosis Comments EKG 12-LEAD Routine 12/14/2010 11:33 AM EDT documented in this encounter Results * EKG 12-LEAD (12/14/2010 11:33 AM EDT) Ventricular rate 52 BPM MUSE SYSTEM Atrial Rate 52 BPM MUSE SYSTEM P-R Interval 184 ms MUSE SYSTEM QRS Duration 86 ms MUSE SYSTEM Q-T Interval 438 ms MUSE SYSTEM QTC Calculated (Bezet) 407 ms MUSE SYSTEM Calculated P [place] 49 degrees MUSE SYSTEM Calculated R [place] 4 degrees MUSE SYSTEM Calculated T [place] 27 degrees MUSE SYSTEM INTERPRETATION Sinus bradycardia Otherwise normal ECG When compared with ECG of 24-JUL-2009 13:41, No significant change was found Confirmed by MD Grullon Timothy ([id number]) on 12/14/2010 1:01:25 PM MUSE SYSTEM 12/14/2010 11:3 3 AM EDT 12/14/2010 1:01 PM EDT Unknown ECG ORDERABLES Performing Organization Address City/State/[facility] Co de Phone Number MUSE SYSTEM documented in this encounter Visit Diagnoses Not on filedocumented in this encounter Care Teams Tennis Instructor Relationship Specialty Start Date End Date Scarlett Cherry MD [address] [place] [address] PCP - General 08/21/10 12/19/10 documented as of this encounter
--- OUTSIDE RECORDS SUMMARY | 2024-04-23 12:19 | XMS_ITS | Encounter Summary ---
Author Organization [facility] [place] [address] Care Team Providers Care Electrical Equipment Technician Name Role Phone Henrietta Null MD Primary Care Provider [phone] Encounter Details Date Type Department Care Team (Late st Contact Info) Description 01/04/2011 10:30 AM EDT Procedure visit Lab [address]L [place] [address] Social History Tobacco Use Types Packs/Day Years [...] AM EDT Office Visit Cardiology at [address] [phone] Lorena Lawrence MD [facility] [place] [address] documented as of this encounter Visit Diagnoses Not on filedocumented in this encounter Care Teams Electrical Equipment Technician Relationship Specialty Start Date End Date Henrietta Null MD [facility] [address] [place] [address] PCP - General 12/20/10 05/08/20 documented as of this encounter
--- OUTSIDE RECORDS SUMMARY | 2024-04-23 12:19 | XMS_ITS | Encounter Summary ---
Author Organization [facility] [place] [address] Care Team Providers Care Relief Operator Name Role Phone Scarlett Cherry MD Primary Care Provider [phone] Encounter Details Date Type Department Care Team (Late Contact Info) Description 12/14/2010 Orders Only Gynecology Oncology at [facility] [place] [address] Sanchez Sharif MD [facility] [place] [address] Social History Tobacco Use Types Packs/Day Years [...] AM EDT Office Visit Cardiology at [address] [place] [phone] Lorena Lawrence MD [facility] [place] [address] documented as of this encounter Procedures Procedure Name Priority Date/Time Associated Diagnosis Comments CBC (WITH DIFF) Routine 12/14/2010 11:29 AM EDT documented in this encounter Results * (ABNORMAL) CBC (WITH DIFF) (12/14/2010 11:29 AM EDT) WBC 4.3 4.0 - 10.0 x10(3)/mcL CERNER MILLENNIUM RBC 4.12 3.93 - 5.22 x10(6)/mcL CERNER MILLENNIUM Hemoglobin 11.9 11.2 - 15.7 gm/dL CERNER MILLENNIUM Hematocrit 37.8 34.0 - 45.0 % CERNER MILLENNIUM MCV 91.7 79.0 - 94.0 fL CERNER MILLENNIUM MCH 28.9 26.6 - 32.2 pg CERNER MILLENNIUM MCHC 31.5(L) 32.0 - 36.5 gm/dL CERNER MILLENNIUM Platelets 208 145 - 370 x10(3)/mcL CERNER MILLENNIUM RDWSD 40.5 35.0 - 46.0 fL CERNER MILLENNIUM RDWCV 12.0 10.9 - 14.4 % CERNER MILLENNIUM MPV 9.8 9.0 - 12.0 fL CERNER MILLENNIUM Blood specimen (specimen) 12/14/2010 11:29 AM EDT 12/14/2010 11:48 AM EDT Sanchez Sharif MD HEMATOLOGY ORDERABLE S CERFLY BLUEIUM documented in this encounter Visit Diagnoses Not on filedocumented in this encounter Care Teams Relief Operator Relationship Specialty Start Date End Date Scarlett Cherry MD [address] [place] [address] PCP - General 08/21/10 12/19/10 documented as of this encounter
--- OUTSIDE RECORDS SUMMARY | 2024-04-23 12:19 | XMS_ITS | Encounter Summary ---
Author Organization [facility] [place] [address] Care Team Providers Care Academic Counselor Name Role Phone Scarlett Cherry MD Primary Care Provider [phone] Encounter Details Date Type Department Care Team (Late Contact Info) Description 08/27/2010 8:30 AM EST [place] [address] Aranza Lynn, DIE HARDENER [address] [place] [address] Social History Tobacco Use Types Packs/Day Years [...] AM EDT Office Visit Cardiology at [address] [place] [phone] Lorena Lawrence MD [facility] [place] [address] documented as of this encounter Visit Diagnoses Not on filedocumented in this encounter Care Teams Academic Counselor Relationship Specialty Start Date End Date Scarlett Cherry MD [address] [place] [address] PCP - General 08/21/10 12/19/10 documented as of this encounter
--- OUTSIDE RECORDS SUMMARY | 2024-04-23 12:19 | XMS_ITS | Encounter Summary ---
Author Organization Formerly [facility] [place] [address] Care Team Providers Care Air/Ocean Export Clerk Name Role Phone Scarlett Cherry MD Primary Care Provider [phone] Encounter Details Date Type Department Care Team (Late Contact Info) Description 12/14/2010 Orders Only Gynecology Oncology at [facility] [place] [address] Sanchez Sharif MD [facility] [place] [address] Social History Tobacco Use Types Packs/Day Years [...] AM EDT Office Visit Cardiology at [address] [place] [address] Lorena Lawrence MD [facility] [place] [address] documented as of this encounter Procedures Procedure Name Priority Date/Time Associated Diagnosis Comments CREATININE Routine 12/14/2010 11:29 AM EDT documented in this encounter Results * (ABNORMAL) CREATININE, SERUM (12/14/2010 11:29 AM EDT) Creatinine 0.58(L) 0.70 - 1.20 mg/dL EFFIE MILLENNIUM Estimated GFR >60 >=60 CERFLY MILLENNIUM Comment: The National Kidney Disease Education [...] disease. References: http://nkdep.nih.gov/resources/NKDEP_Suggestn4Labs_0606_508.pdf http://www.kidney.org/professionals/kls/pdf/faq_gfr.pdf Blood specimen (specimen) 12/14/2010 11:29 AM EDT 12/14/2010 11:48 AM EDT Sanchez Sharif MD CHEMISTRY ORDERABLES EFFIE SEBASTIAN documented in this encounter Visit Diagnoses Not on filedocumented in this encounter Care Teams Air/Ocean Export Clerk Relationship Specialty Start Date End Date Scarlett Cherry MD [address] [place] [address] PCP - General 08/21/10 12/19/10 documented as of this encounter
--- OUTSIDE RECORDS SUMMARY | 2024-04-23 12:19 | XMS_ITS | Encounter Summary ---
Author Organization [facility] [place] [address] Care Team Providers Care Healthcare Market Consultant Name Role Phone Henrietta Null MD Primary Care Provider [phone] Encounter Details Date Type Department Care Team (Late st Contact Info) Description 01/04/2011 11:15 AM EDT Office Visit Lab [address] [place] [address] Social History Tobacco Use Types Packs/Day Years [...] AM EDT Office Visit Cardiology at [address] [phone] Lorena Lawrence MD [facility] [address] documented as of this encounter Visit Diagnoses Not on filedocumented in this encounter Care Teams Healthcare Market Consultant Relationship Specialty Start Date End Date Henrietta Null MD [facility] [address] [place] [address] PCP - General 12/20/10 05/08/20 documented as of this encounter
== END 2024-04-23 12:10 | disposition home or self-care (01) ==
LOC: NCHCN 12:09
PROVIDERS: PCP Nurse Practitioner Family; Visit Provider Nurse Practitioner Family
DX: M81.0 Age-related osteoporosis without current pathological fracture (principal)
CPT/HCPCS: 82306

== ENCOUNTER → 2024-06-28 10:31 | Outpatient (BNVA) | payer OTHER, SELFPAY | PROVIDERS: PCP Nurse Practitioner Family; Referring Provider Nurse Practitioner Family; Visit Provider Physician Assistant Surgical | DX: J47.9 Bronchiectasis, uncomplicated (principal) | CPT/HCPCS: 99214 ==

== ENCOUNTER 2024-08-19 02:13 | Outpatient (CLI) | payer OTHER, SELFPAY ==
--- NOTE | 2024-08-19 | DI.MAMMO_ITS ---
Exam(s) MAMMO SCREENING EXAM: MAMMO SCREENING CLINICAL HISTORY: SCREENING MAMMO Z12.31. TECHNIQUE: Bilateral full field digital CC and MLO mammographic images were obtained with 3D tomosyn thesis and utilizing computer aided detection (CAD). COMPARISON: Prior mammograms dating back to 2015 were reviewed. FINDINGS: There has been no significant change in the appearance and distribution of the fibroglandular tissue. Asymmetric tissue posteriorly in the right breast seen on the MLO view is unchanged from 2015 and the refore benign. There are no new spiculated masses nor malignant appearing microcalcification groups. There is no significant architectural distortion nor skin thickening-retraction. IMPRESSION: No radiographic evidence of malignancy. BI-RADS Category 1 - Negative Breast Density - Category C - Heterogeneously dense Breast density Category C or D implies that the patient has dense breast tissue. Dense breast tissue can make it harder to find cancer on a mammogram. Dense breast tissue is also associated with an incr eased risk of breast cancer. This information about the result of the mammogram report was provided to the patient to raise their awareness. Use this report when you speak with the patient about their risks for breast cancer, which includes their family history. At that time, you may recommend additional screening tests (Ultrasoun d or MRI) as these tests may add significant information. A negative radiographic report should not delay biopsy if a dominant or clinically suspicious mass is present. Up to ten percent of cancers are not identified on mammography. A negative report may reinforce clinical impression. Adenosis and dense breasts may obscure an underlying neoplasm. False positive reports average 6 to 10%. Patient will receive a letter notifying them of these results.
== END 2024-08-19 02:33 ==
LOC: DI 02:13
PROVIDERS: PCP Nurse Practitioner Family; Visit Provider Nurse Practitioner Family
DX: Z78.0 Asymptomatic menopausal state (principal); Z12.31 Encounter for screening mammogram for malignant neoplasm of breast; R92.333 Mammographic heterogeneous density, bilateral breasts
CPT/HCPCS: 77063; 77067

== ENCOUNTER 2024-11-23 08:22 | Outpatient (REF) | payer MEDICARE, SELFPAY | END 2024-11-23 08:23 | disposition home or self-care (01) | LOC: NCHCN 08:22 | PROVIDERS: PCP Nurse Practitioner Family; Visit Provider Family Medicine | DX: R05.9 Cough, unspecified (principal) | CPT/HCPCS: 87070; 87205 ==

== ENCOUNTER → 2024-11-30 09:03 | Outpatient (BNVA) | payer MEDICARE, SELFPAY | PROVIDERS: PCP Nurse Practitioner Family; Referring Provider Nurse Practitioner Family; Visit Provider Physician Assistant Surgical | DX: J47.9 Bronchiectasis, uncomplicated (principal) | CPT/HCPCS: 99214 ==

== ENCOUNTER 2025-02-03 05:05 | Emergency (ER) | payer MEDICARE, SELFPAY ==
[2025-02-03] VITALS (18 sets, daily range): BP systolic 115–141; BP diastolic 40–61; PULSE 49–68; RESP 14–25; TEMP 36.5–36.6; O2SAT 93–100
--- NOTE | 2025-02-03 05:15 | RT.EKG_ITS ---
APPROVED REPORT Exam: Resting ECG Reason for Exam: SOB Patient Location: E HR:51 bpm ECG Measurements Heart Rate 51 AXIS SD 174 P 37 QRSd 143 QRS -29 QT 496 T 21 QTc 458 Conclusion Sinus bradycardia...rate< 60 Left bundle branch block...QRSd>120, broad/notched R Physician: negative sgarbossa. no stemi
[2025-02-03 05:34] LABS: Abs Immature Grans 0.02 10^3/uL (0.0-0.06); Absolute Basophil Count 0.07 10^3/uL (0.0-0.2); Absolute Eosinophil Count 0.51 10^3/uL (0.0-0.7); Absolute Lymphocyte Count 0.96 10^3/uL (1.2-3.4); Absolute Monocyte Count 0.46 10^3/uL (0.1-0.8); Absolute Neutrophil Count 3.23 10^3/uL (1.2-6.7); Basophils % 1.3 %; Eosinophils % 9.7 %; HCT 38.6 % (36.0-46.0); HGB 12.4 g/dL (11.2-15.7); Immature Grans % 0.4 %; Lymphocytes % 18.3 %; MCH 29.2 pg (27.0-33.0); MCHC 32.1 % (32.0-36.0); MCV 91 fL (80-95); MPV 9.5 fL (8.0-11.0); Monocytes % 8.8 %; Neutrophils % 61.5 %; Platelet Count 214 10^3/uL (130-400); RBC 4.24 10^6/uL (3.93-5.22); RDW 12.8 % (11.7-14.6); RDW-SD 41.9 fL; WBC 5.25 10^3/uL (4.4-10.8)
[2025-02-03] MEDS: Albuterol/Ipratropium 3 ML UPD VIAL UPD (05:35)
--- NOTE | 2025-02-03 05:36 | W.ED.GENAD ---
Discharge Plan Disposition Patient Disposition: Home Condition: Good Discharge Details Clinical Impression: COPD exacerbation Primary Care Provider: Tolu Lazar ED Provider: Adolfo Canales Home Meds and New Rx's Prescriptions: New prednisone 50 mg tablet 50 mg PO DAILY Qty: 5 0RF No Action turmeric 400 mg capsule PO Vitamin B-6 50 mg capsule 50 mg PO BID Patient Comments: 03/19/24- pt reports taking ligaplex with vitamin b 6 cataplex See Rx Instructions .ROUTE DIRECTED Rx Instructions: as directed; liqaple See Rx Instructions .ROUTE DIRECTED Rx Instructions: as directed; biost See Rx Instructions .ROUTE DIRECTED Rx Instructions: as directed; flaxseed 1,000 mg capsule See Rx Instructions PO DIRECTED Rx Instructions: orally as directed; albuterol sulfate 2.5 mg /3 mL (0.083 %) solution for nebulization See Rx Instructions .ROUTE .COMPLEX Qty: 180 12RF Dose Instruction: INHALE 5MG (2 VIALS) VIA NEBULIZER EVERY 6 HOURS NEEDED FOR SHORTNESS OF BREATH OR WHEEZING Rx Instructions: INHALE 5MG (2 VIALS) VIA NEBULIZER EVERY 6 HOURS NEEDED FOR SHORTNESS OF BREATH OR WHEEZING budesonide 0.5 mg/2 mL suspension for nebulization 0.5 mg inhalation DAILY Qty: 60 6RF renew life probiotic See Rx Instructions .ROUTE DIRECTED Rx Instructions: as directed; inositol 650 mg tablet 1,300 mg PO DAILY carbamazepine [Tegretol] 200 mg tablet 200 mg PO TID PRN furosemide 20 mg Tablet 20 mg PO DAILY metoprolol succinate 25 mg Tablet Extended Release 24 Hr 25 mg PO HS cholecalciferol (vitamin D3) 100 mcg (4,000 unit) Capsule 4,000 mcg PO DAILY calcium 500 mg tablet 500 mg PO DAILY Patient Comments: 03/19/24- pt reports takes calcifood Discharge Instructions Instructions: Exacerbation of COPD Additional Instructions: At this time your chest x-ray shows no evidence of pneumonia, your COVID flu and RSV testing is negative. Your laboratory workup is returned reassuring. Your symptoms appear consistent with a mild COPD exacerbation. Please continue to take your nebulizer treatments every 6 hours for the next week. Please take the steroid as prescribed. Is been sent to your pharmacy on file. If you notice any worsening of your symptoms, or any new symptoms such as vomiting, diarrhea, fever, chills, shortness of breath, chest pain, numbness, weakness, or fainting , please return immediately to the emergency department for reevaluation. Please follow up with your primary care provider as soon as possible for reassessment and reevaluation. As always, it was a pleasure participating in your medical care today. Referrals: Tolu Lazar [Primary Care Provider] - [facility] General Date/Time Provider Initiated Documentation: 02/03/25 05:13. HPI Narrative: This is an 80-year-old female with a past medical history of reactive airway disease/COPD, bronchiectasis, left bundle branch block, previous NSTEMI, who presents today for evaluation of cough. Patient chronically has a cough with productive sputum, she denies any hemoptysis. However she did have a recent change few hours ago this morning when she woke up. She woke up short of breath with significant increase in cough and sputum production. She took a nebulizer which did not help significantly. She then came to the ER for further assessment. She denies fever or chills. She denies chest pain. She denies numbness tingling or weakness. No change in her medications. No other complaints at this time. Related Data Home Medications ?Medication ?Instructions ?Recorded ?Confirmed cholecalciferol (vitamin D3) 100 4,000 mcg PO DAILY 11/24/22 02/03/25 mcg (4,000 unit) capsule furosemide 20 mg tablet 20 mg PO DAILY 11/24/22 02/03/25 metoprolol succinate 25 mg 25 mg PO HS 11/24/22 02/03/25 tablet,extended release 24 hr renew life probiotic See Rx Instructions .Route 07/22/23 02/03/25 DIRECTED inositol 650 mg tablet 1,300 mg PO DAILY 03/05/24 02/03/25 calcium 500 mg tablet 500 mg PO DAILY 03/19/24 02/03/25 pyridoxine (vitamin B6) 50 mg 50 mg PO BID 03/19/24 02/03/25 capsule (Vitamin B-6) turmeric 400 mg capsule mg PO 03/19/24 11/30/24 albuterol sulfate 2.5 mg/3 mL See Rx Instructions .Route 06/28/24 02/03/25 (0.083 %) solution for nebulization .COMPLEX #180 mL biost See Rx Instructions .Route 06/28/24 02/03/25 DIRECTED budesonide 0.5 mg/2 mL suspension 0.5 mg (2 mL) inhalation DAILY #60 06/28/24 02/03/25 for nebulization mL cataplex See Rx Instructions .Route 06/28/24 02/03/25 DIRECTED flaxseed 1,000 mg capsule See Rx Instructions PO DIRECTED 06/28/24 02/03/25 liqaple See Rx Instructions .Route 06/28/24 02/03/25 DIRECTED carbamazepine 200 mg tablet 200 mg PO TID PRN 11/30/24 02/03/25 (Tegretol) prednisone 50 mg tablet 50 mg PO DAILY #5 tabs 02/03/25 Previous Rx's ?Medication ?Instructions ?Recorded albuterol sulfate 2.5 mg/3 mL See Rx Instructions .Route 06/28/24 (0.083 %) solution for nebulization .COMPLEX #180 mL budesonide 0.5 mg/2 mL suspension 0.5 mg (2 mL) inhalation DAILY #60 06/28/24 for nebulization mL prednisone 50 mg tablet 50 mg PO DAILY #5 tabs 02/03/25 Allergies Allergy/AdvReac Type Severity Reaction Status Date / Time amoxicillin (From Augmentin) AdvReac Intermediate Diarrhea Verified 02/03/25 05:20 clavulanic acid (From AdvReac Intermediate Diarrhea Verified 02/03/25 05:20 Augmentin) oxycodone AdvReac Intermediate Headache Verified 02/03/25 05:20 Azithromycin AdvReac Other (See Uncoded 02/03/25 05:20 Comment) General Stated Complaint: SOB CECI: 3 Exam Narrative Exam Narrative: 1.Const: Well-nourished, Well-developed, appearing stated age 2.Eyes: PERRL, no conjunctival injection, and symmetrical lids. 3.ENT: Atraumatic external nose and ears. Moist MM. Neck: Symmetric, trachea midline, No thyromegaly. 4.CVS: +S1/S2, Peripheral pulses 2+ and equal in all extremities. Brisk capillary refill in all extremities. 5.RESP: Restricted lung sounds, diffuse wheezes throughout, mild rhonchi. 6.GI: Soft, Nontender/Nondistended, No hepatosplenomegaly. No guarding or rebound. 7.MSK: Normocephalic/Atraumatic, Extremities w/o deformity or ttp No cyanosis or clubbing, Normal movement of all extremities 8.Skin: Warm, Dry. No rashes or lesions. 9.Neuro: lead customer service representative II-XII grossly intact. Sensation grossly intact, no focal neurologic deficits. 10.Psych: (AAO) x3. Appropriate mood and affect Course Vital Signs Vital signs: Vital Signs Temperature 36.6 C 02/03/25 05:09 Pulse 56 L 02/03/25 05:09 Respiratory Rate 20 02/03/25 05:09 Blood Pressure 135/61 02/03/25 05:09 Pulse Oximetry 96 02/03/25 05:09 Temperature 36.5 C 02/03/25 05:14 Temperature Source Oral 02/03/25 05:14 Pulse 57 L 02/03/25 05:14 Respiratory Rate 20 02/03/25 05:14 Respiratory Effort Short of Breath 02/03/25 05:14 Respiratory Depth Normal 02/03/25 05:14 Respiratory Pattern Normal 02/03/25 05:14 Blood Pressure 135/61 02/03/25 05:14 Pulse Oximetry 98 02/03/25 05:14 Oxygen Delivery Method Room Air 02/03/25 05:14 Oxygen Flow Rate 0 02/03/25 05:09 Pain Level 0 02/03/25 05:14 Medical Decision Making This is an 80-year-old female with a past medical history of reactive airway disease/COPD, bronchiectasis, left bundle branch block, previous NSTEMI, who presents today for evaluation of cough. Patient chronically has a cough with productive sputum, she denies any hemoptysis. However she did have a recent change few hours ago this morning when she woke up. She woke up short of breath with significant increase in cough and sputum production. She took a nebulizer which did not help significantly. She then came to the ER for further assessment. She denies fever or chills. She denies chest pain. She denies numbness tingling or weakness. No change in her medications. No other complaints at this time. Exam demonstrates a stable appearing female, oxygenation is at 98% on room air, no tachycardia, blood pressure stable. Diffuse wheezes throughout with some coarse breath sounds as well. Concern for worsening of her COPD in conjunction with bronchiectasis versus additional potential pneumonia. Will test for viral etiology. Will give breathing treatment and steroids, get a chest x-ray monitor closely and reassess. EKG shows no evidence of STEMI, negative for Sgarbossa's criteria. No chest pain to suggest cardiac etiology, especially in conjunction with stable EKG. 7:11 AM On reassessment the patient's wheezes have completely resolved, patient subjectively feels much better. She no longer feels short of breath, her cough has resolved. Chest x-ray is negative for pneumonia or acute process. Labs show no white count bandemia or left shift. COVID flu and RSV is negative. VBG normal. Electrolytes stable, serial troponins normal. Symptoms appear consistent with a mild COPD exacerbation. Will send a prescription for prednisone for home, recommend continued albuterol nebulizer treatments. With no evidence of pneumonia, no fever or chills, or other concerning etiology I do feel the patient is stable for discharge. Discussed plan with family who is at bedside. I have extensively reviewed the treatment plan and discharge instructions with the patient and their family. I have addressed all patient concerns at this time. The patient and family was made aware of what symptoms to monitor for that would warrant a return to the emergency department. Discussed the plan with the patient and family, they demonstrate verbal understanding and agreement with our assessment and plan at this time. The documentation in this chart was dictated using [employer] ([employer]) dictation software. Please excuse any dictation errors. FINDINGS: Lungs: Minimal atelectasis at the right lung base. Pleural spaces: No large pleural effusion seen. Heart/Mediastinum: Cardiac silhouette magnified by AP technique. Bones/joints: No acute abnormality. IMPRESSION: No acute findings to explain reported symptoms. Thank you for allowing us to participate in the care of your patient. Dictated and Authenticated by: Jigna Roland MD 02/03/2025 5:59 AM Eastern Time ([place] & [place]) Quality:SDOH Health Related Social Needs: No Data to Display PFSH All Active Problems (Updated 02/03/25 @ 07:13 by Adolfo Canales DO) COPD exacerbation (Acute) COVID-19 (Acute) Bronchiectasis (Acute) Medical History (Updated 02/03/25 @ 07:13 by Adolfo Canales DO) Prolapse of anterior vaginal wall COLD (chronic obstructive lung disease) Flank pain History of trigger finger Osteoporosis Ovarian fibroma Acute non-ST elevation myocardial infarction (NSTEMI) 12/2019 LBBB (left bundle branch block) Trigeminal neuralgia Surgical correction Stress-induced cardiomyopathy Surgical History History of partial hysterectomy Social History Smoking/Tobacco Use Status: Never Smoking risk assessment performed?: Yes Alcohol Intake: never Drug use: Never Substance use type: does not use Housing: house Do you feel safe at home: Yes Additional Social history: lives alone History History 4 Para 4 Hx # Term Pregnancies Multiple births Hx # Pregnancies Ectopic pregnancies AB induced Hx Number of Living Children AB spontaneous
[2025-02-03] MEDS: methylPREDNISolone SUCC 125 MG VIAL IVP (05:37)
[2025-02-03 05:53] LABS: ALT 32 U/L (14-59); AST 23 U/L (15-37); Albumin 3.7 g/dL (3.4-5.0); Alkaline Phosphatase 112 U/L (46-116); Anion Gap 7.6 mmol/L (3-11); BUN 20 mg/dL (7-18); Bilirubin, Total 0.7 mg/dL (0.2-1.0); CO2 28.4 mmol/L (21.0-32.0); Calcium 9.3 mg/dL (8.5-10.1); Chloride 105 mmol/L (98-107); Estimated GFR 56.95 (mL/min/1.73m2); Glucose 85 mg/dL (74-106); Magnesium 2.2 mg/dL (1.8-2.4); Potassium 4.4 mmol/L (3.5-5.1); Sodium 141 mmol/L (136-145); Total Protein 6.9 g/dL (6.4-8.2); Troponin I 6 ng/L (<or=51)
--- NOTE | 2025-02-03 05:54 | DI.RAD_ITS ---
Exam(s) XR PORTABLE CHEST AP EXAM: XR PORTABLE CHEST AP CLINICAL HISTORY: SOB, cough, hx of bronchiectasis. TECHNIQUE: 2D digital imaging was performed. COMPARISON: No exams were available for comparison FINDINGS: Single AP portable view. Heart size is upper normal. The mediastinum is not widened. Some scarring in the right lung base is unchanged. No new infiltrates nor obvious pleural effusions. IMPRESSION: No acute pulmonary findings on this single AP portable view of the chest. Right lung base scarring is unchanged. DATA REPOSITORY: RADIATION DOSE DELIVERED:
--- NOTE | 2025-02-03 05:59 | DI.VRAD_ITS ---
PROCEDURE INFORMATION: Exam: XR Chest Exam date and time: 02/03/2025 5:53 AM Age: 80 years old Clinical indication: Cough and shortness of breath; SOB, cough, HX of bronchiectasis TECHNIQUE: Imaging protocol: Radiologic exam of the chest. Views: 1 view. COMPARISON: CR XR CHEST 2V PA LATERAL 09/30/2023 10:03 AM FINDINGS: Lungs: Minimal atelectasis at the right lung base. Pleural spaces: No large pleural effusion seen. Heart/Mediastinum: Cardiac silhouette magnified by AP technique. Bones/joints: No acute abnormality. IMPRESSION: No acute findings to explain reported symptoms. Dictated and Authenticated by: Jigna Roland MD. Orderin Ally Mata MD
[2025-02-03 06:48] LABS: BE (Venous) 2 mmol/L (-2-3); HCO3 (Venous) 27 mmol/L (23-28); O2 Sat (Venous) 58 %; TCO2 (Venous) 25 mmol/L (24-29); pCO2 (Venous) 44 mmHg (41-51); pH (Venous) 7.39 (7.31-7.41); pO2 (Venous) 31 mmHg
[2025-02-03 06:52] LABS: COVID-19 PCR Negative (Negative); Influenza A PCR Negative (Negative); Influenza B PCR Negative (Negative); RSV PCR Negative (Negative)
[2025-02-03 06:55] LABS: Source Nasopharynx
[2025-02-03 07:15] LABS: Troponin I 8 ng/L (<or=51)
== END 2025-02-03 07:39 | disposition home or self-care (01) ==
PROVIDERS: Emergency Provider Student in an Organized Health Care Education/Training Program; PCP Physician Assistant
DX: J44.1 Chronic obstructive pulmonary disease with (acute) exacerbation (principal)
CPT/HCPCS: 99284 ×2; 96374; 80053; 82805; 87637; 93005; 71045; 83735; 84484; 85025; 93010; J2919; J7620

== ENCOUNTER → 2025-03-02 09:42 | Outpatient (BNVA) | payer MEDICARE, SELFPAY | PROVIDERS: PCP Physician Assistant; Referring Provider Nurse Practitioner Family; Visit Provider Physician Assistant Surgical | DX: J47.9 Bronchiectasis, uncomplicated (principal) | CPT/HCPCS: 99214 ==

== ENCOUNTER → 2025-04-07 14:42 | Outpatient (BNVA) | payer MEDICARE, SELFPAY | PROVIDERS: PCP Physician Assistant; Referring Provider Physician Assistant; Visit Provider Internal Medicine Pulmonary Disease | DX: J47.9 Bronchiectasis, uncomplicated (principal); R05.1 Acute cough; J44.9 Chronic obstructive pulmonary disease, unspecified | CPT/HCPCS: 99214 ==

== ENCOUNTER 2025-04-07 16:11 | Outpatient (REF) | payer MEDICARE, SELFPAY | END 2025-04-07 16:12 | disposition home or self-care (01) | LOC: LBN 16:11 | PROVIDERS: PCP Physician Assistant; Visit Provider Internal Medicine Pulmonary Disease | DX: J47.9 Bronchiectasis, uncomplicated (principal); J44.9 Chronic obstructive pulmonary disease, unspecified | CPT/HCPCS: 87070; 87205 ==

== ENCOUNTER → 2025-04-26 08:37 | Outpatient (BNVA) | payer MEDICARE, SELFPAY | PROVIDERS: PCP Physician Assistant; Referring Provider Physician Assistant; Visit Provider Internal Medicine Pulmonary Disease | DX: J47.9 Bronchiectasis, uncomplicated (principal); J44.9 Chronic obstructive pulmonary disease, unspecified; R05.9 Cough, unspecified | CPT/HCPCS: 99214 ==

== ENCOUNTER → 2025-05-31 09:32 | Outpatient (BNVA) | payer MEDICARE, SELFPAY | PROVIDERS: PCP Physician Assistant; Referring Provider Physician Assistant; Visit Provider Internal Medicine Pulmonary Disease | DX: J47.9 Bronchiectasis, uncomplicated (principal); J44.9 Chronic obstructive pulmonary disease, unspecified; R05.9 Cough, unspecified | CPT/HCPCS: 99214 ==

== ENCOUNTER 2025-07-08 12:55 | Outpatient (REF) | payer MEDICARE, SELFPAY ==
[2025-07-08 17:29] LABS: HCT 36.4 % (36.0-46.0); HGB 11.5 g/dL (11.2-15.7); MCH 28.8 pg (27.0-33.0); MCHC 31.6 % (32.0-36.0); MCV 91 fL (80-95); MPV 10.9 fL (8.0-11.0); Platelet Count 202 10^3/uL (130-400); RBC 4.00 10^6/uL (3.93-5.22); RDW 12.8 % (11.7-14.6); RDW-SD 41.8 fL; WBC 5.38 10^3/uL (4.4-10.8)
[2025-07-08 17:49] LABS: TSH 1.84 uIU/mL (0.36-3.74)
== END 2025-07-08 12:56 | disposition home or self-care (01) ==
LOC: NCHCN 12:55
PROVIDERS: PCP Physician Assistant; Visit Provider Physician Assistant
DX: R53.82 Chronic fatigue, unspecified (principal)
CPT/HCPCS: 85027; 84439; 84443

== ENCOUNTER 2025-07-14 15:17 | Emergency (ER) | payer MEDICARE, SELFPAY ==
[2025-07-14 15:19] VITALS: BP 167/86; PULSE 75; RESP 16; TEMP 36.9; O2SAT 92
[2025-07-14 15:23] VITALS: BP 167/86; PULSE 75; RESP 16; TEMP 36.9; O2SAT 92
--- NOTE | 2025-07-14 15:28 | W.ED.GENAD ---
Discharge Plan Disposition Patient Disposition: Home Condition: Stable Discharge Details Clinical Impression: Bronchiectasis, Shortness of breath Primary Care Provider: Tolu Lazar ED Provider: Gaurav Rosario Home Meds and New Rx's Prescriptions: New prednisone 20 mg tablet 60 mg PO DAILY 4 Days Qty: 12 0RF doxycycline hyclate 100 mg tablet 100 mg PO BID Qty: 14 0RF Continued turmeric 400 mg capsule 400 mg PO DAILY cataplex See Rx Instructions .ROUTE DIRECTED Rx Instructions: as directed; biost See Rx Instructions .ROUTE DIRECTED Rx Instructions: as directed; flaxseed 1,000 mg capsule See Rx Instructions PO DIRECTED Rx Instructions: orally as directed; sodium chloride 3 % solution for nebulization 4 ml inhalation Q8H PRN (Reason: secretions) Qty: 240 4RF montelukast 10 mg tablet 10 mg PO DAILY inositol 650 mg tablet 1,300 mg PO DAILY carbamazepine [Tegretol] 200 mg tablet 200 mg PO TID PRN epinephrine [EpiPen] 0.3 mg/0.3 mL auto-injector 0.3 mg IM ONCE Rx Instructions: as a single dose; may repeat once fluticasone propionate [Flonase Allergy Relief] 50 mcg/actuation spray,suspension 1 spray intranasal DAILY Rx Instructions: administer into each nostril guaifenesin [Mucinex] 600 mg tablet extended release 12hr 600 mg PO BID albuterol sulfate 2.5 mg /3 mL (0.083 %) solution for nebulization 2.5 mg inhalation Q6H PRN (Reason: shortness of breath or wheezing) Qty: 180 12RF budesonide 0.5 mg/2 mL suspension for nebulization 0.5 mg inhalation BID Qty: 60 12RF furosemide 20 mg Tablet 20 mg PO DAILY metoprolol succinate 25 mg Tablet Extended Release 24 Hr 25 mg PO HS cholecalciferol (vitamin D3) 100 mcg (4,000 unit) Capsule 4,000 mcg PO DAILY Discharge Instructions Additional Instructions: Follow-up with either primary care provider or machine feeder raw stock within 1 week if not improving. Continue to use your breathing treatments at home. If you feel significantly more ill, severely short of breath or High fevers return to the emergency department for reevaluation. HPI General Mode of arrival: ambulatory. Date/Time Provider Initiated Documentation: 07/14/25 15:18. Limitations to Documentation: no limitations. Information obtained by: patient. History of Present Illness 80 year old F presents to the emergency department with the chief complaint of cough,dyspnea, described as moderate, Patient started experiencing this week(s) (2) and it has been constant. No relieving factors improve symptom(s), No exacerbating factors reported . Patient notes shortness of breath; denies chest pain, fever/chills and nausea/vomiting. Related Data Home Medications ?Medication ?Instructions ?Recorded ?Confirmed cholecalciferol (vitamin D3) 100 4,000 mcg PO DAILY 11/24/22 07/14/25 mcg (4,000 unit) capsule furosemide 20 mg tablet 20 mg PO DAILY 11/24/22 07/14/25 metoprolol succinate 25 mg 25 mg PO HS 11/24/22 07/14/25 tablet,extended release 24 hr inositol 650 mg tablet 1,300 mg PO DAILY 03/05/24 07/14/25 turmeric 400 mg capsule 400 mg PO DAILY 03/19/24 07/14/25 biost See Rx Instructions .Route 06/28/24 07/14/25 DIRECTED cataplex See Rx Instructions .Route 06/28/24 07/14/25 DIRECTED flaxseed 1,000 mg capsule See Rx Instructions PO DIRECTED 06/28/24 07/14/25 carbamazepine 200 mg tablet 200 mg PO TID PRN 11/30/24 07/14/25 (Tegretol) epinephrine 0.3 mg/0.3 mL 0.3 mg IM ONCE 02/03/25 07/14/25 injection, auto-injector (EpiPen) fluticasone propionate 50 1 spray intranasal DAILY 02/03/25 07/14/25 mcg/actuation nasal spray,suspension (Flonase Allergy Relief) guaifenesin 600 mg tablet, 600 mg PO BID 02/03/25 07/14/25 extended release 12 hr (Mucinex) montelukast 10 mg tablet 10 mg PO DAILY 03/02/25 07/14/25 albuterol sulfate 2.5 mg/3 mL 2.5 mg (3 mL) inhalation Q6H PRN 03/07/25 07/14/25 (0.083 %) solution for nebulization shortness of breath or wheezing #180 mL budesonide 0.5 mg/2 mL suspension 0.5 mg (2 mL) inhalation BID #60 mL 03/07/25 07/14/25 for nebulization sodium chloride 3 % for 4 ml inhalation Q8H PRN secretions 04/07/25 07/14/25 nebulization #240 mL doxycycline hyclate 100 mg tablet 100 mg PO BID #14 tabs 07/14/25 prednisone 20 mg tablet 60 mg (3 x 20 mg) PO DAILY 4 days 07/14/25 #12 tabs Previous Rx's ?Medication ?Instructions ?Recorded albuterol sulfate 2.5 mg/3 mL 2.5 mg (3 mL) inhalation Q6H PRN 03/07/25 (0.083 %) solution for nebulization shortness of breath or wheezing #180 mL budesonide 0.5 mg/2 mL suspension 0.5 mg (2 mL) inhalation BID #60 mL 03/07/25 for nebulization sodium chloride 3 % for 4 ml inhalation Q8H PRN secretions 04/07/25 nebulization #240 mL doxycycline hyclate 100 mg tablet 100 mg PO BID #14 tabs 07/14/25 prednisone 20 mg tablet 60 mg (3 x 20 mg) PO DAILY 4 days 07/14/25 #12 tabs Allergies Allergy/AdvReac Type Severity Reaction Status Date / Time azithromycin Allergy Unknown Unknown Verified 07/14/25 15:21 bee venom protein (honey bee) Allergy Unknown Anaphylaxis Verified 07/14/25 15:21 morphine Allergy Unknown nausea, Verified 07/14/25 15:21 vomiting amoxicillin (From Augmentin) AdvReac Intermediate Diarrhea Verified 07/14/25 15:21 clavulanic acid (From AdvReac Intermediate Diarrhea Verified 07/14/25 15:21 Augmentin) oxycodone AdvReac Intermediate Headache Verified 07/14/25 15:21 codeine AdvReac Unknown abdominal Verified 07/14/25 15:21 pain methadone AdvReac Unknown Headache Verified 07/14/25 15:21 General Stated Complaint: RespSymp CECI: 3 Review of Systems All systems reviewed & are unremarkable except as noted in HPI and below Constitutional Constitutional: Denies chills, Denies fever(s) and Denies weakness Cardiovascular Cardiovascular: Denies chest pain and Reports dyspnea Respiratory Respiratory: Reports cough and Reports dyspnea Gastrointestinal Gastrointestinal: Denies abdominal pain, Denies nausea and Denies vomiting Neurologic Neurologic: Denies weakness Exam Const General: no acute distress Orientation: alert [facility] Head: normal to inspection Ears: external ears normal General nose exam: external nose normal Mouth: moist mucous membranes Eyes General: appearance normal, both eyes and all related structures Neck Neck: normal visual inspection Resp Effort & Inspection: normal respiratory effort, able to speak in complete sentences and cough Auscultation: rhonchi Cardio Jugular venous pressure: no JVD Rate: regular rate Skin General skin exam: no rashes or lesions noted Neuro General: patient alert and patient oriented x3 Extrem General: normal to inspection Psych Mental Status: mental status grossly normal Course Vital Signs Vital signs: Vital Signs Temperature 36.9 C 07/14/25 15:19 Pulse 75 07/14/25 15:19 Respiratory Rate 16 07/14/25 15:19 Blood Pressure 167/86 H 07/14/25 15:19 Pulse Oximetry 92 07/14/25 15:19 Temperature 36.9 C 07/14/25 15:23 Temperature Source Tympanic 07/14/25 15:19 Pulse 75 07/14/25 15:23 Respiratory Rate 16 07/14/25 15:23 Blood Pressure 167/86 H 07/14/25 15:23 Blood Pressure Position Sitting 07/14/25 15:19 Pulse Oximetry 92 07/14/25 15:23 Oxygen Delivery Method Room Air 07/14/25 15:19 Oxygen Flow Rate 0 07/14/25 15:19 Pain Level 0 07/14/25 15:23 Medical Decision Making 80-year-old female with history of bronchiectasis, NSTEMI, who comes in with 2 weeks of persistent cough and shortness of breath. Denies any high fevers or chest pain. She says she was placed on azithromycin last week for 5 days without significant changes. She is able to speak in full sentences but does have a persistent harsh cough during exam. She has rhonchi in all lung thomas, no JVD or leg swelling or calf tenderness. I suspect this is a exacerbation of her underlying lung disease, will treat with nebulizers and methylprednisolone and also check a CBC and CMP. She has no chest pain or chest pressure so I do not feel ACS workup is indicated especially with her lung exam findings. She has no evidence of DVT on exam so I doubt PE. Will obtain a chest x-ray to evaluate for possible infiltrates. Patient feels better, lung sounds are improved and has minimal rhonchi at the bases, she denies any shortness of breath. Chest x-ray shows no clear infiltrates. Given she has had increased cough I am going up with her on doxycycline and also prednisone. She will follow-up with her PCP if not improving and return precautions given. Differential Diagnosis Differential Diagnosis: bronchiectasis, pneumonia,covid Medical Records Medical records reviewed: Yes I reviewed the patient's medical records. Lab Data Lab results reviewed: Yes I reviewed the patient's lab results. 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 COLD (chronic obstructive lung disease) Flank pain History of trigger finger Osteoporosis Ovarian fibroma Acute non-ST elevation myocardial infarction (NSTEMI) 12/2019 LBBB (left bundle branch block) Trigeminal neuralgia Surgical correction Stress-induced cardiomyopathy Surgical History (Updated 02/03/25 @ 12:03 by Celina Rees RN) History of wisdom tooth extraction S/P trigger finger release H/O bilateral oophorectomy History of partial hysterectomy Family History (Updated 02/03/25 @ 12:05 by Celina Rees RN) Father , age 88 Cerebral aneurysm AAA (abdominal aortic aneurysm) Mother , Age 40 SLE (systemic lupus erythematosus) Sister Colon cancer Cancer of pancreatic duct COPD (chronic obstructive pulmonary disease) Sister Diverticulitis Brother , trauma related to ETOH No problems noted. Social History Smoking/Tobacco Use Status: Never Smoking risk assessment performed?: Yes Alcohol Intake: never Drug use: Never Substance use type: does not use Housing: house Do you feel safe at home: Yes Additional Social history: lives alone History History 4 Para 4 Hx # Term Pregnancies Multiple births Hx # Pregnancies Ectopic pregnancies AB induced Hx Number of Living Children AB spontaneous
[2025-07-14] MEDS: Albuterol/Ipratropium 3 ML UPD VIAL UPD ×2 (15:35)
[2025-07-14] MEDS: methylPREDNISolone SUCC 125 MG VIAL IVP (15:42)
[2025-07-14 15:51] LABS: BE (Venous) 3 mmol/L (-2-3); HCO3 (Venous) 27 mmol/L (23-28); O2 Sat (Venous) 88 %; TCO2 (Venous) 25 mmol/L (24-29); pCO2 (Venous) 41 mmHg (41-51); pO2 (Venous) 51 mmHg
[2025-07-14 15:53] LABS: Abs Immature Grans 0.02 10^3/uL (0.0-0.06); HCT 35.7 % (36.0-46.0); HGB 11.5 g/dL (11.2-15.7); Immature Grans % 0.3 %; MCH 28.4 pg (27.0-33.0); MCHC 32.2 % (32.0-36.0); MCV 88 fL (80-95); MPV 9.5 fL (8.0-11.0); Platelet Count 222 10^3/uL (130-400); RBC 4.05 10^6/uL (3.93-5.22); RDW 12.6 % (11.7-14.6); RDW-SD 40.9 fL; WBC 6.31 10^3/uL (4.4-10.8)
[2025-07-14 16:09] LABS: ALT 36 U/L (14-59); AST 23 U/L (15-37); Albumin 3.7 g/dL (3.4-5.0); Alkaline Phosphatase 113 U/L (46-116); Anion Gap 8.2 mmol/L (3-11); BUN 21 mg/dL (7-18); Bilirubin, Total 0.5 mg/dL (0.2-1.0); CO2 27.8 mmol/L (21.0-32.0); Calcium 8.9 mg/dL (8.5-10.1); Chloride 104 mmol/L (98-107); Estimated GFR 56.95 (mL/min/1.73m2); Glucose 100 mg/dL (74-106); Magnesium 2.3 mg/dL (1.8-2.4); Potassium 3.9 mmol/L (3.5-5.1); Sodium 140 mmol/L (136-145); Total Protein 6.6 g/dL (6.4-8.2)
[2025-07-14 16:31] LABS: COVID-19 PCR Negative (Negative); RSV PCR Negative (Negative)
--- NOTE | 2025-07-14 16:46 | DI.RAD_ITS ---
Exam(s) XR CHEST 2V PA LATERAL EXAM: XR CHEST 2V PA LATERAL CLINICAL HISTORY: cough TECHNIQUE: 2D digital imaging was performed of the chest. Two images were obtained. PA and lateral views were obtained. COMPARISON: CR XR CHEST 2V PA LATERAL from 09/30/2023 CR,XR XR PORTABLE CHEST AP from 02/03/2025 FINDINGS: MEDIASTINUM: Normal. HEART: Normal. PULMONARY VASCULATURE: Normal. LUNGS: There is linear atelectasis at the lung bases. There are no focal consolidating infiltrates. PLEURAL SPACE: No pleural effusion or pneumothorax. BONE:Within normal limits for the patient's age. OTHER FINDINGS:Normal. IMPRESSION: No acute pulmonary findings. DATA REPOSITORY: RADIATION DOSE DELIVERED:
[2025-07-14 17:37] VITALS: BP 154/39; PULSE 80; RESP 18; O2SAT 92
== END 2025-07-14 17:39 | disposition home or self-care (01) ==
PROVIDERS: Emergency Provider Emergency Medicine; PCP Physician Assistant
DX: J47.9 Bronchiectasis, uncomplicated (principal); R06.02 Shortness of breath
CPT/HCPCS: 80053; 82805; 87637; 94640; 96374; 99284; 71046; 83735; 85025; 99283; J2919; J7620

== ENCOUNTER → 2025-07-19 11:09 | Outpatient (BNVA) | payer MEDICARE, SELFPAY | PROVIDERS: PCP Physician Assistant; Referring Provider Physician Assistant; Visit Provider Internal Medicine Pulmonary Disease | DX: J47.9 Bronchiectasis, uncomplicated (principal); J44.9 Chronic obstructive pulmonary disease, unspecified; R05.9 Cough, unspecified | CPT/HCPCS: 99214 ==

== ENCOUNTER 2025-09-15 10:43 | Emergency (ER) | payer MEDICARE, SELFPAY ==
[2025-09-15 10:48] VITALS: BP 115/71; PULSE 70; RESP 16; TEMP 36.6; O2SAT 93
[2025-09-15 10:56] VITALS: BP 115/71; PULSE 70; RESP 16; TEMP 36.6; O2SAT 93
--- NOTE | 2025-09-15 11:36 | DI.RAD_ITS ---
Exam(s) XR CHEST 2V PA LATERAL EXAM: XR CHEST 2V PA LATERAL CLINICAL HISTORY: cough, shortness of breath TECHNIQUE: 2D digital imaging was performed of the chest. Two images were obtained. PA and lateral views were obtained. COMPARISON: CR XR CHEST 2V PA LATERAL from 09/30/2023 CR XR CHEST 2V PA LATERAL from 07/14/2025 FINDINGS: MEDIASTINUM: Normal. HEART: Normal. PULMONARY VASCULATURE: Normal. LUNGS: There is linear atelectasis in the right lung base. There are no focal consolidating infiltrates. PLEURAL SPACE: No pleural effusion or pneumothorax. BONE:Within normal limits for the patient's age. OTHER FINDINGS:Normal. IMPRESSION: No acute pulmonary findings. DATA REPOSITORY: RADIATION DOSE DELIVERED:
[2025-09-15] MEDS: predniSONE 20 MG TAB 40 MG PO (11:37)
[2025-09-15] MEDS: Benzonatate 100 MG CAP PO (11:37)
[2025-09-15] MEDS: Albuterol/Ipratropium 3 ML UPD VIAL 6 ML UPD (11:38)
--- NOTE | 2025-09-16 08:45 | W.ED.GENAD ---
Discharge Plan Disposition Patient Disposition: Home Condition: Stable Discharge Details Clinical Impression: Bronchitis Primary Care Provider: Tolu Lazar ED Provider: Yareli Lopez Home Meds and New Rx's Prescriptions: New prednisone 20 mg tablet 40 mg PO ONCE Qty: 8 0RF ipratropium-albuterol 0.5 mg-3 mg(2.5 mg base)/3 mL solution for nebulization 3 ml inhalation Q6H PRNQty: 90 0RF doxycycline hyclate 100 mg capsule 100 mg PO BID Qty: 10 0RF benzonatate 100 mg capsule 100 mg PO TID PRNQty: 10 0RF Continued turmeric 400 mg capsule 400 mg PO DAILY cataplex See Rx Instructions .ROUTE DIRECTED Rx Instructions: as directed; biost See Rx Instructions .ROUTE DIRECTED Rx Instructions: as directed; flaxseed 1,000 mg capsule See Rx Instructions PO DIRECTED Rx Instructions: orally as directed; inositol 650 mg tablet 1,300 mg PO DAILY epinephrine [EpiPen] 0.3 mg/0.3 mL auto-injector 0.3 mg IM ONCE Rx Instructions: as a single dose; may repeat once guaifenesin [Mucinex] 600 mg tablet extended release 12hr 600 mg PO BID albuterol sulfate 2.5 mg /3 mL (0.083 %) solution for nebulization 2.5 mg inhalation Q6H PRN (Reason: shortness of breath or wheezing) Qty: 180 12RF fluticasone propionate [Flonase Allergy Relief] 50 mcg/actuation spray,suspension 1 spray intranasal DAILY PRN Rx Instructions: administer into each nostril sodium chloride 3 % solution for nebulization 4 ml inhalation Q8H PRN (Reason: secretions) Qty: 240 6RF furosemide 20 mg Tablet 20 mg PO DAILY metoprolol succinate 25 mg Tablet Extended Release 24 Hr 25 mg PO HS cholecalciferol (vitamin D3) 100 mcg (4,000 unit) Capsule 4,000 mcg PO DAILY doxycycline hyclate 100 mg tablet 100 mg PO BID Qty: 14 0RF Discharge Instructions Instructions: Bronchitis, Adult ED Additional Instructions: Use the DuoNebs every 6 hours as needed for cough, wheeze, shortness of breath Take the prednisone as prescribed Use the Tessalon Perles as needed for cough Make sure you are drinking at least eight 8 ounce glasses of water daily Take the antibiotic as prescribed Please return with worsening shortness of breath, fever, chest pain, or should any new concerns arise Recheck with your primary care physician on Friday for reassessment Stand Alone Forms: Portal Information Referrals: Tolu Lazar [Primary Care Provider, Medicine] Discharge Data Discharge Date/Time-TO BE ENTERED AT DEPARTURE: 09/15/25 12:43 HPI General Date/Time Provider Initiated Documentation: 09/15/25 11:08. HPI Narrative: 80-year-old female presents with cough mucus production for the past 2 weeks history of COPD. Using inhalers that presents secondary to persistent cough and some mild shortness of breath during coughing. Denies any fevers greater than 100.4, calf pain or swelling, recent flights surgeries long drives, history of coagulopathy. Denies any chest discomfort calf pain or swelling. States she has had similar symptoms in the past with bronchitis. Related Data Home Medications ?Medication ?Instructions ?Recorded ?Confirmed cholecalciferol (vitamin D3) 100 4,000 mcg PO DAILY 11/24/22 07/19/25 mcg (4,000 unit) capsule furosemide 20 mg tablet 20 mg PO DAILY 11/24/22 07/19/25 metoprolol succinate 25 mg 25 mg PO HS 11/24/22 07/19/25 tablet,extended release 24 hr inositol 650 mg tablet 1,300 mg PO DAILY 03/05/24 07/19/25 turmeric 400 mg capsule 400 mg PO DAILY 03/19/24 07/19/25 biost See Rx Instructions .Route 06/28/24 07/19/25 DIRECTED cataplex See Rx Instructions .Route 06/28/24 07/19/25 DIRECTED flaxseed 1,000 mg capsule See Rx Instructions PO DIRECTED 06/28/24 07/19/25 epinephrine 0.3 mg/0.3 mL 0.3 mg IM ONCE 02/03/25 07/19/25 injection, auto-injector (EpiPen) guaifenesin 600 mg tablet, 600 mg PO BID 02/03/25 07/19/25 extended release 12 hr (Mucinex) albuterol sulfate 2.5 mg/3 mL 2.5 mg (3 mL) inhalation Q6H PRN 03/07/25 07/19/25 (0.083 %) solution for nebulization shortness of breath or wheezing #180 mL doxycycline hyclate 100 mg tablet 100 mg PO BID #14 tabs 07/14/25 07/19/25 fluticasone propionate 50 1 spray intranasal DAILY PRN 07/19/25 07/19/25 mcg/actuation nasal spray,suspension (Flonase Allergy Relief) sodium chloride 3 % for 4 ml inhalation Q8H PRN secretions 08/30/25 nebulization #240 mL benzonatate 100 mg capsule 100 mg PO TID PRN #10 caps 09/15/25 doxycycline hyclate 100 mg capsule 100 mg PO BID #10 caps 09/15/25 ipratropium 0.5 mg-albuterol 3 mg 3 ml inhalation Q6H PRN #90 mL 09/15/25 (2.5 mg base)/3 mL nebulization soln prednisone 20 mg tablet 40 mg (2 x 20 mg) PO ONCE #8 tabs 09/15/25 Previous Rx's ?Medication ?Instructions ?Recorded albuterol sulfate 2.5 mg/3 mL 2.5 mg (3 mL) inhalation Q6H PRN 03/07/25 (0.083 %) solution for nebulization shortness of breath or wheezing #180 mL doxycycline hyclate 100 mg tablet 100 mg PO BID #14 tabs 07/14/25 sodium chloride 3 % for 4 ml inhalation Q8H PRN secretions 08/30/25 nebulization #240 mL benzonatate 100 mg capsule 100 mg PO TID PRN #10 caps 09/15/25 doxycycline hyclate 100 mg capsule 100 mg PO BID #10 caps 09/15/25 ipratropium 0.5 mg-albuterol 3 mg 3 ml inhalation Q6H PRN #90 mL 09/15/25 (2.5 mg base)/3 mL nebulization soln prednisone 20 mg tablet 40 mg (2 x 20 mg) PO ONCE #8 tabs 09/15/25 Allergies Allergy/AdvReac Type Severity Reaction Status Date / Time azithromycin Allergy Unknown Unknown Verified 09/15/25 10:54 bee venom protein (honey bee) Allergy Unknown Anaphylaxis Verified 09/15/25 10:54 morphine Allergy Unknown nausea, Verified 09/15/25 10:54 vomiting amoxicillin (From Augmentin) AdvReac Intermediate Diarrhea Verified 09/15/25 10:54 clavulanic acid (From AdvReac Intermediate Diarrhea Verified 09/15/25 10:54 Augmentin) oxycodone AdvReac Intermediate Headache Verified 09/15/25 10:54 codeine AdvReac Unknown abdominal Verified 09/15/25 10:54 pain methadone AdvReac Unknown Headache Verified 09/15/25 10:54 General Stated Complaint: RespSymp CECI: 3 Exam Narrative Exam Narrative: Alert, oriented, no distress, wheezes, mildly diminished on assessment no calf swelling or tenderness, cardiac rate rhythm regular no respiratory distress speaking complete sentences Course Vital Signs Vital signs: Vital Signs Temperature 36.6 C 09/15/25 10:48 Pulse 70 09/15/25 10:48 Respiratory Rate 16 09/15/25 10:48 Blood Pressure 115/71 09/15/25 10:48 Pulse Oximetry 93 09/15/25 10:48 Temperature 36.6 C 09/15/25 10:56 Temperature Source Oral 09/15/25 10:56 Pulse 70 09/15/25 10:56 Respiratory Rate 16 09/15/25 10:56 Respiratory Effort Short of Breath 09/15/25 12:00 Respiratory Depth Normal 09/15/25 12:00 Blood Pressure 115/71 09/15/25 10:56 Blood Pressure Position Sitting 09/15/25 10:56 Pulse Oximetry 93 09/15/25 10:56 Oxygen Delivery Method Room Air 09/15/25 10:56 Oxygen Flow Rate 0 09/15/25 10:56 Pain Level 3 09/15/25 10:56 Medical Decision Making Results: Chest x-ray per radiology interpretation my review without acute abnormality Assessment and plan: Patient had bronchospasm on assessment with recurrent coughing, vitals are quite stable no hypoxia no respiratory distress, given a DuoNeb x 2 feels marked improvement no longer coughing. Will give prednisone, doxycycline with 2 weeks of symptoms and history of COPD, will prescribe DuoNebs for home. Patient will need to be reassessed by PCP next week. Low suspicion for cardiac event based on clinical exam findings vitals and assessment, low suspicion for PE given lack of significant tachypnea, hypoxia, or risk factors. 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 COLD (chronic obstructive lung disease) Flank pain History of trigger finger Osteoporosis Ovarian fibroma Acute non-ST elevation myocardial infarction (NSTEMI) 12/2019 LBBB (left bundle branch block) Trigeminal neuralgia Surgical correction Stress-induced cardiomyopathy Surgical History (Updated 02/03/25 @ 12:03 by Celina Rees RN) History of wisdom tooth extraction S/P trigger finger release H/O bilateral oophorectomy History of partial hysterectomy Family History (Updated 02/03/25 @ 12:05 by Celina Rees RN) Father , age 88 Cerebral aneurysm AAA (abdominal aortic aneurysm) Mother , Age 40 SLE (systemic lupus erythematosus) Sister Colon cancer Cancer of pancreatic duct COPD (chronic obstructive pulmonary disease) Sister Diverticulitis Brother , trauma related to ETOH No problems noted. Social History Smoking/Tobacco Use Status: Never Smoking risk assessment performed?: Yes Alcohol Intake: never Drug use: Never Substance use type: does not use Housing: house Do you feel safe at home: Yes Additional Social history: lives alone but son lives next door History History 4 Para 4 Hx # Term Pregnancies Multiple births Hx # Pregnancies Ectopic pregnancies AB induced Hx Number of Living Children AB spontaneous
== END 2025-09-15 12:43 | disposition home or self-care (01) ==
PROVIDERS: Emergency Provider Physician Assistant; PCP Physician Assistant
DX: J40 Bronchitis, not specified as acute or chronic (principal)
CPT/HCPCS: 99283 ×2; 94640; 71046; J7512; J7620